=== PATIENT | male | born 1945 | race Caucasian/White ===

== ENCOUNTER 2017-11-03 01:44 | Inpatient (IN) | payer OTHER ==
--- OUTSIDE RECORDS SUMMARY | 2017-11-03 01:46 | XMS REPORT | Clinical Summary ---
:[address] [facility] Address [address] [place] [address] Phone Care Team Providers Name Role Phone Unavailable Primary Care Provider Unavailable Allergies Active Allergy Reactions Severity Noted Date Comments Atorvastatin 04/26/2014 Niacin 04/26/2014 Paroxetine Hcl 04/27/2014 PARADOXICAL RXN Adhesive Tape Rash Low 04/26/2014 USE PAPER TAPE ONLY Current Medications Prescription Sig. Disp. Refills Start Date End Date Status clopidogrel (PLAVIX) 75 Take 75 mg by mouth Active mg tablet daily. aspirin 325 MG tablet Take 325 mg by Active mouth daily. pantoprazole (PROTONIX) Take 40 mg by mouth Active 40 MG tablet daily. pitavastatin (LIVALO) 4 Take 4 mg by mouth Active mg Tab daily. tamsulosin (FLOMAX) 0.4 Take 0.4 mg by Active mg Cp24 24 hr capsule mouth daily. fenofibric acid, choline, Take 135 mg by Active 135 mg capsule mouth daily. dutasteride (AVODART) 0.5 Take 0.5 mg by Active mg capsule mouth daily. allopurinol (ZYLOPRIM) Take 300 mg by Active 300 MG tablet mouth daily. gabapentin (NEURONTIN) Take 300 mg by Active 300 MG capsule mouth 2 (two) times daily. albuterol-ipratropium Inhale 2 puffs by Active (COMBIVENT) 18-103 mouth via inhaler mcg/actuation inhaler every 6 (six) hours as needed for Wheezing. metoprolol (LOPRESSOR) 25 Take 25 mg by mouth Active MG tablet daily . fentaNYL (DURAGESIC) 12 [address] 2 patches Active mcg/hr patch onto the skin every third day. 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 Encounters Date Type Specialty Care Team Description 11/14/2016 Hospital Encounter Radiology Papi Abdominal aortic MD Gabriella aneurysm (AAA) without rupture (HCC) 11/12/2016 Outside Orders Central Scheduling Papi Abdominal aortic MD Gabriella aneurysm (AAA) without rupture ([facility]) (Primary Dx) 11/12/2016 Outside Orders Gabriella Turpin MD after 11/02/2016 Social History Tobacco Use Types Packs/Day Years Used Date Current Every Day Smoker Smokeless Tobacco: Never Used Alcohol Use Drinks/Week oz/Week Comments Yes 28 Shots of liquor 16.8 Sex Assigned at Date Recorded Not on file Last Filed Vital Signs Not on file Plan of Treatment Health Maintenance Due Date Last Done Comments INFLUENZA VACCINE 01/06/2018 Implants Implanted Type Area Traffic Control Flagger Device Expiration Model / Identifier Date Serial / Lot Smart Control Stents-P Left: CORDIS 10/06/2016 [id number] / Implanted: Qty: 1 on 04/27/2014 by Gabriella Turpin MD [employer] / l [id number] Smart Control Stents-P Right: CORDIS 11/06/2014 [id number] / Implanted: Qty: 1 on 04/27/2014 by Gabriella Turpin MD [employer] / l [id number] Express Ld Iliac/Biliary Stents-P Right: [place] 12/07/2016 [id number] / Implanted: Qty: 1 on 04/27/2014 by Gabriella Turpin MD [employer] / l [id number] Lifestent Solo Vascular Stent BARD VASCULAR 12/22/2016 [id number] / Implanted: Qty: 1 on 05/12/2015 / [id number] Ovation Ix Abdominal Stent Graft N/A: Aorta [employer] 06/06/2018 [id number] / Implanted: Qty: 1 on 09/13/2015 by Gabriella Turpin MD / [id number] Ovation Ix Iliac Stent Graft Left: Iliac [employer] 07/31/2018 TV- [id number] / Implanted: Qty: 1 on 09/13/2015 by Gabriella Turpin MD / [id number] Ovation Ix Iliac Stent Graft Right: Iliac [employer] 08/03/2018 TV [id number] / Implanted: Qty: 1 on 09/13/2015 by Gabriella Turpin MD / [id number] abdomen/pelvis without iv contrast (11/14/2016 9:05 AM) Specimen Performing Laboratory Sensorion Narrative Addendum Begins REPORT STATUS:A Addendum I have reviewed the nonvascular findings and concur with Dr. Stewart's report. 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 The multiple renal lesions, some of which are hyperdense, probably represent cysts. It is difficult to characterize them based on noncontrast imaging. There has been no substantial change since April 27, 2015. Signed: Shayla Browne MD Report Verified Date/Time:11/14/2016 13:08:41 Reading Location: [place] [address] Angio Body Reading Room Addendum Ends FINAL REPORT CT abdominal aorta and pelvic arteries, without contrast, 14 November 2016 INDICATION: This is a 71 year old male with aortic aneurysm presents for assessment. This study is performed in an attempt to avoid an invasive procedure. TECHNIQUE: Spiral acquisition without contrast administration using a [employer] multidetector CT scanner per physician request. Multiplanar reformation was performed interactively by the interpreting physician as well as the 3-D specialist. This exam was performed according to our departmental dose-optimisation programme, which includes automated exposure control, adjustment of the mA and/or kV according to patient size and/or use of iterative reconstruction technique. Dose modulation, iterative reconstruction, and/or weight based adjustment of the mA/kV was utilized to reduce the radiation dose to as low as reasonably achievable. FINDINGS: VASCULAR: Calcification is identified in the distal RCA. Since last examination, interval placement of an endostent is identified in the abdominal aorta. The Endo stent commences above the takeoff of the coeliac axis and the iliac limbs terminates in the left and the right external iliac arteries. There appears to be well positioned. Presence or absence of endoleak cannot be commented upon without contrast administration. Note, in prior CT scan in 2016, that already stents identified in the common and external iliac arteries, before the abdominal stent placement. Correlate with operative report. Assessment of the mesenteric, and pelvic arteries are limited. Note, substantial calcification is identified in the left common femoral level, for example at image 260. Quantitative dimensions of the abdominal aorta are as follows: 2.7 cm at the mesenteric segment; 2.7 cm at the renal segment; 3.5 x 3.2 cm at the mid infrarenal level; and 3.9 x 4.0 cm at distal in the renal level, and 2.2 x 2.2 cm at the aortic bifurcation. NON-VASCULAR:- The lung bases are unremarkable. No pleural effusion is identified. Calcification is seen at the diaphragmatic surface in the left and the right. In the noncontrast data set, the liver and spleen appears unremarkable. Mild fatty infiltration of the liver is identified. The liver edge is smooth. Patient is post cholecystectomy. The pancreas appears unremarkable. Tiny focal calcification is seen near the head of the pancreas at image 91, stable when compared to prior examination. The adrenal glands are not enlarged. In the noncontrast data, no obvious acute renal pathology is seen. No hydronephrosis or perirenal fluid collection is identified. Multiple hypodensities are seen in both kidney. The largest one in the right kidney posteriorly at image 117, that measures 5.1 x 4.6 cm in diameter, and the larger one in the posterior aspect of the right kidney, image 84 measures 3.3 x 3.2 cm in diameter, incompletely characterize in this noncontrast data set. In addition, there are also are the subcentimeter hyperdensities present in both kidneys, for example image 74 in the left kidney, and at image 86 in the right kidney that are incompletely characterize. Another hyperdense cyst is seen in the lateral aspect of the right kidney, at image 110, measures 2.3 x 2.7 cm in diameter. Bowel is not well assessed by CT angiography as enteric contrast is not given. No obvious bowel dilation identified. Scattered colonic diverticular disease is seen. No free air or free fluid seen abdomen and pelvis. There is no significant retroperitoneal adenopathy. Small lymph is are seen in both groins, a nonspecific finding. The prostate gland is mildly prominent. The bladder appears unremarkable. Surgical clips are seen in the right groin. No acute bony pathology is seen. Tiny sclerotic focus identified in the right and left femoral likely represent bone islands, stable when compared to prior examination. CONCLUSIONS: 1. Since last examination, an endostent stent is identified in the abdominal aorta that appears to be well positioned, arising above the takeoff of the mesenteric arteries and terminates in the external iliac arteries, bilaterally. Quantitative dimensions as described above. The aortic volume in this current examination was 110 cc, when compared to111 cc in 2016, measure imaging below the left renal artery down to the aortic bifurcation. 2. Other findings as described above; assessment is limited without contrast administration. Mild hepatic steatosis. 3. An addendum will be dictated regarding the non-vascular findings by the Patient Service Associate Radiologists. Signed: Fausto Stewart MD Report Verified Date/Time:11/14/2016 09:27:26 Reading Location: [place] [address] Cardiology MRI Procedure Note Interface, External Ris In - 11/14/2016 1:10 PM CDT Addendum Begins REPORT STATUS:A Addendum I have reviewed the nonvascular findings and concur with Dr. Stewart's report. 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 The multiple renal lesions, some of which are hyperdense, probably represent cysts. It is difficult to characterize them based on noncontrast imaging. There has been no substantial change since April 27, 2015. Signed: Shayla Browne MD Report Verified Date/Time: 11/14/2016 13:08:41 Reading Location: [facility] [address] Angio Body Reading Room Addendum Ends FINAL REPORT CT abdominal aorta and pelvic arteries, without contrast, 14 November 2016 INDICATION: This is a 71 year old male with aortic aneurysm presents for assessment. This study is performed in an attempt to avoid an invasive procedure. TECHNIQUE: Spiral acquisition without contrast administration using a GE multidetector CT scanner per physician request. Multiplanar reformation was performed interactively by the interpreting physician as well as the 3-D specialist. This exam was performed according to our departmental dose-optimisation programme, which includes automated exposure control, adjustment of the mA and/or kV according to patient size and/or use of iterative reconstruction technique. Dose modulation, iterative reconstruction, and/or weight based adjustment of the mA/kV was utilized to reduce the radiation dose to as low as reasonably achievable. FINDINGS: VASCULAR: Calcification is identified in the distal RCA. Since last examination, interval placement of an endostent is identified in the abdominal aorta. The Endo stent commences above the takeoff of the coeliac axis and the iliac limbs terminates in the left and the right external iliac arteries. There appears to be well positioned. Presence or absence of endoleak cannot be commented upon without contrast administration. Note, in prior CT scan in 2016, that already stents identified in the common and external iliac arteries, before the abdominal stent placement. Correlate with operative report. Assessment of the mesenteric, and pelvic arteries are limited. Note, substantial calcification is identified in the left common femoral level, for example at image 260. Quantitative dimensions of the abdominal aorta are as follows: 2.7 cm at the mesenteric segment; 2.7 cm at the renal segment; 3.5 x 3.2 cm at the mid infrarenal level; and 3.9 x 4.0 cm at distal in the renal level, and 2.2 x 2.2 cm at the aortic bifurcation. NON-VASCULAR:- The lung bases are unremarkable. No pleural effusion is identified. Calcification is seen at the diaphragmatic surface in the left and the right. In the noncontrast data set, the liver and spleen appears unremarkable. Mild fatty infiltration of the liver is identified. The liver edge is smooth. Patient is post cholecystectomy. The pancreas appears unremarkable. Tiny focal calcification is seen near the head of the pancreas at image 91, stable when compared to prior examination. The adrenal glands are not enlarged. In the noncontrast data, no obvious acute renal pathology is seen. No hydronephrosis or perirenal fluid collection is identified. Multiple hypodensities are seen in both kidney. The largest one in the right kidney posteriorly at image 117, that measures 5.1 x 4.6 cm in diameter, and the larger one in the posterior aspect of the right kidney, image 84 measures 3.3 x 3.2 cm in diameter, incompletely characterize in this noncontrast data set. In addition, there are also are the subcentimeter hyperdensities present in both kidneys, for example image 74 in the left kidney, and at image 86 in the right kidney that are incompletely characterize. Another hyperdense cyst is seen in the lateral aspect of the right kidney, at image 110, measures 2.3 x 2.7 cm in diameter. Bowel is not well assessed by CT angiography as enteric contrast is not given. No obvious bowel dilation identified. Scattered colonic diverticular disease is seen. No free air or free fluid seen abdomen and pelvis. There is no significant retroperitoneal adenopathy. Small lymph is are seen in both groins, a nonspecific finding. The prostate gland is mildly prominent. The bladder appears unremarkable. Surgical clips are seen in the right groin. No acute bony pathology is seen. Tiny sclerotic focus identified in the right and left femoral likely represent bone islands, stable when compared to prior examination. CONCLUSIONS: 1. Since last examination, an endostent stent is identified in the abdominal aorta that appears to be well positioned, arising above the takeoff of the mesenteric arteries and terminates in the external iliac arteries, bilaterally. Quantitative dimensions as described above. The aortic volume in this current examination was 110 cc, when compared to 111 cc in 2016, measure imaging below the left renal artery down to the aortic bifurcation. 2. Other findings as described above; assessment is limited without contrast administration. Mild hepatic steatosis. 3. An addendum will be dictated regarding the non-vascular findings by the Patient Service Associate Radiologists. Signed: Fausto Stewart MD Report Verified Date/Time: 11/14/2016 09:27:26 Reading Location: [facility] [address] Cardiology MRI after 11/02/2016
[2017-11-03 03:06] LABS: Absolute Lymphocytes (CBC) 1.3 K/uL (0.7-4.9); Absolute Monocytes 0.5 K/uL (0.1-1.3); Absolute Neutrophil 6.6 K/uL (1.8-8.0); Basophils % 0.8 % (0-1.3); Lymphocytes % 15.3 % (15.3-44.8); MCH 31.5 pg (27.0-35.0); MCV 95.4 fL (80-100); MPV 9.6 fL (7.6-11.3); Monocytes % 5.5 % (3.3-12.3); RBC Red Blood Cell Count 3.99 M/uL (4.33-5.43)
[2017-11-03 03:28] LABS: Albumin 3.4 g/dL (3.4-5.0); Bilirubin Direct 0.1 mg/dL (0-0.2); Bilirubin Total 0.4 mg/dL (0.2-1.0); Potassium 4.8 mmol/L (3.5-5.1); Protein, Total 7.6 g/dL (6.4-8.2)
[2017-11-03] MEDS ORDERED: NA CHLORIDE 0.9% 1,000 ML ONE (03:28)
[2017-11-03] MEDS ORDERED: ACETAMINOPHEN 500 MG TAB PO PRN (06:13)
[2017-11-03] MEDS ORDERED: MORPHINE 4 MG/ML SYR IV PRN (06:13)
--- NOTE | 2017-11-03 06:24 | EDPHYS ---
Physician Documentation [facility] Name: Enrrique Vaughn Age: 72 yrs Sex: Male : 1945 Arrival Date: 11/03/2017 Time: 01:46 Bed 24 Private MD: Julio Stratton V ED Physician Darren Beckford HPI: 11/03 02:57 This 72 yrs old Male presents to ER via Ambulatory with complaints of Urinary sukhwinder Retention, Diarrhea. 02:57 The patient presents to the emergency department with nausea, vomiting, diarrhea, that sukhwinder is intermittent. Onset: The symptoms/episode began/occurred 3 day(s) ago. Possible causes: unknown. The symptoms are aggravated by nothing. The symptoms are alleviated by nothing. Associated signs and symptoms: The patient has no apparent associated signs or symptoms. Severity of symptoms: At their worst the symptoms were mild moderate in the emergency department the symptoms are unchanged have resolved. The patient has not experienced similar symptoms in the past. Historical: - Allergies: 02:05 Paxil; aa1 02:05 Niaspan; aa1 02:05 Tape; aa1 02:05 Lipitor; aa1 - Home Meds: 02:05 Vitamin C 1,000 mg Oral tab daily [Active]; allopurinol 300 mg Oral tab 1 tab once aa1 daily [Active]; Combivent 18-103 mcg/actuation Inhl aero as needed [Active]; Protonix 40 mg Oral TbEC 1 tab once daily [Active]; Cymbalta 60 mg oral cpDR 1 cap once daily [Active]; metoprolol tartrate 100 mg Oral tab 1 tab once daily [Active]; Plavix 75 mg Oral tab 1 tab once daily [Active]; aspirin 325 mg Oral tab 1 tab once daily [Active]; Crestor 20 mg oral tab 1 tab once daily [Active]; Trilipix 135 mg oral cpDR 1 cap once daily [Active]; Lyrica Oral 1 cap 2 times per day [Active]; Flomax 0.4 mg Oral cp24 1 cap once daily [Active]; Avodart 0.5 mg oral cap 1 cap once daily [Active]; - PMHx: 02:05 prostate cancer; COPD; Hypertension; aa1 - PSHx: 02:05 Heart stents; aa1 - Immunization history:: Flu vaccine is not up to date. - Social history:: Smoking status: Patient uses tobacco products, smokes one pack cigarettes per day. - Ebola Screening: : Patient denies exposure to infectious person Patient denies travel to an Ebola-affected area in the 21 days before illness onset. - Family history:: not pertinent. ROS: 02:57 Constitutional: Negative for fever, chills, and weight loss, Eyes: Negative for injury, sukhwinder pain, redness, and discharge, ENT: Negative for injury, pain, and discharge, Neck: Negative for injury, pain, and swelling, Cardiovascular: Negative for chest pain, palpitations, and edema, Respiratory: Negative for shortness of breath, cough, wheezing, and pleuritic chest pain, Back: Negative for injury and pain, MS/Extremity: Negative for injury and deformity, Skin: Negative for injury, rash, and discoloration, Neuro: Negative for headache, weakness, numbness, tingling, and seizure, Psych: Negative for depression, anxiety, suicide ideation, homicidal ideation, and hallucinations, Allergy/Immunology: Negative for hives, rash, and allergies, Endocrine: Negative for neck swelling, polydipsia, polyuria, polyphagia, and marked weight changes, Hematologic/Lymphatic: Negative for swollen nodes, abnormal bleeding, and unusual bruising. 02:57 : Positive for urinary symptoms, urinary frequency, small amounts, burning with urination. Exam: 02:57 Constitutional: This is a well developed, well nourished patient who is awake, alert, sukhwinder and in no acute distress. Head/Face: Normocephalic, atraumatic. Eyes: Pupils equal round and reactive to light, extra-ocular motions intact. Lids and lashes normal. Conjunctiva and sclera are non-icteric and not injected. Cornea within normal limits. Periorbital areas with no swelling, redness, or edema. ENT: Nares patent. No nasal discharge, no septal abnormalities noted. Tympanic membranes are normal and external auditory canals are clear. Oropharynx with no redness, swelling, or masses, exudates, or evidence of obstruction, uvula midline. Mucous membranes moist. Neck: Trachea midline, no thyromegaly or masses palpated, and no cervical lymphadenopathy. Supple, full range of motion without nuchal rigidity, or vertebral point tenderness. No Meningismus. Chest/axilla: Normal chest wall appearance and motion. Nontender with no deformity. No lesions are appreciated. Cardiovascular: Regular rate and rhythm with a normal S1 and S2. No gallops, murmurs, or rubs. Normal PMI, no JVD. No pulse deficits. Respiratory: Lungs have equal breath sounds bilaterally, clear to auscultation and percussion. No rales, rhonchi or wheezes noted. No increased work of breathing, no retractions or nasal flaring. Back: No spinal tenderness. No costovertebral tenderness. Full range of motion. Male : Normal genitalia with no discharge or lesions. Skin: Warm, dry with normal turgor. Normal color with no rashes, no lesions, and no evidence of cellulitis. MS/ Extremity: Pulses equal, no cyanosis. Neurovascular intact. Full, normal range of motion. Neuro: Awake and alert, GCS 15, oriented to person, place, time, and situation. Cranial nerves II-XII grossly intact. Motor strength 5/5 in all extremities. Sensory grossly intact. Cerebellar exam normal. Normal gait. Psych: Awake, alert, with orientation to person, place and time. Behavior, mood, and affect are within normal limits. 02:57 Abdomen/GI: Inspection: distension, Bowel sounds: hyperactive, Palpation: mild abdominal tenderness, in the suprapubic area, right lower quadrant and left lower quadrant. Vital Signs: 01:59 BP 123 / 70; Pulse 80; Resp 24; Temp 98.1(O); Pulse Ox 98% on R/A; Weight 90.72 kg; aa1 Height 5 ft. 6 in. (167.64 cm); Pain 3/10; 03:00 BP 153 / 79; Pulse 69; Resp 15; Pulse Ox 93% on 2 lpm NC; lp1 03:30 BP 158 / 76; Pulse 68; Resp 12; Pulse Ox 94% on 2 lpm NC; lp1 04:30 BP 158 / 67; Pulse 68; Resp 17; Pulse Ox 96% on 2 lpm NC; lp1 05:01 BP 167 / 77; Pulse 68; Resp 20; Pulse Ox 94% on 2 lpm NC; tl2 06:21 BP 171 / 87; Pulse 68; Resp 20; Pulse Ox 95% on 2 lpm NC; tl2 07:00 BP 135 / 78; Pulse 72; Resp 19; Pulse Ox 95% on R/A; lp1 01:59 Body Mass Index 32.28 (90.72 kg, 167.64 cm) aa1 MDM: 03:00 Data reviewed: vital signs, nurses notes, lab test result(s), cardiac enzymes, CPK, CK sukhwinder MB, troponin i, CBC, electrolytes. 03:53 Patient medically screened. [facility] 11/03 02:44 Order name: Amylase, Serum; Complete Time: 04:04 [facility] 11/03 02:44 Order name: Basic Metabolic Panel; Complete Time: 04:04 [facility] 11/03 02:44 Order name: CBC with Diff; Complete Time: 04:04 [facility] 11/03 02:44 Order name: Creatinine for Radiology; Complete Time: 04:04 [facility] 11/03 02:44 Order name: Hepatic Function; Complete Time: 04:04 [facility] 11/03 02:44 Order name: Lipase; Complete Time: 04:04 [facility] 11/03 02:44 Order name: Urine Microscopic Only [facility] 11/03 06:17 Order name: Basic Metabolic Panel [facility] 11/03 06:17 Order name: Basic Metabolic Panel [facility] 11/03 06:17 Order name: CBC with Automated Diff [facility] 11/03 06:17 Order name: CBC with Automated Diff [facility] 11/03 06:17 Order name: Lipase [facility] 11/03 06:17 Order name: Lipase [facility] 11/03 06:17 Order name: Liver (Hepatic) Function [facility] 11/03 02:44 Order name: IV Saline Lock; Complete Time: 03:25 [facility] 11/03 02:44 Order name: Labs collected and sent; Complete Time: 03:25 [facility] 11/03 02:56 Order name: Bladder Scanner; Complete Time: 03:25 [facility] 11/03 02:56 Order name: CT Stone Protocol [facility] 11/03 06:06 Order name: NG Tube: to low intermittent suction; Complete Time: 07:19 [facility] 11/03 06:17 Order name: CONS Physician Consult [facility] 11/03 06:17 Order name: NPO [facility] 11/03 06:17 Order name: Liver (Hepatic) Function [facility] 11/03 07:18 Order name: Chest Single View XRAY [facility] 11/03 08:54 Order name: RAD [facility] 11/03 08:55 Order name: RAD [facility] Administered Medications: 03:40 Drug: NS 0.9% 1000 ml Route: IV; Rate: 75 ml/hr; Site: right antecubital; lp1 07:18 Follow up: IV Status: Infusion continued upon admission lp1 06:32 Drug: Cipro 400 mg Volume: 200 ml; Route: IVPB; Infused Over: 60 mins; Site: right lp1 antecubital; 07:18 Follow up: IV Status: Infusion continued upon admission lp1 06:32 Drug: Flagyl 500 mg Volume: 100 ml; Route: IVPB; Rate: 200 ml/hr; Infused Over: 30 lp1 mins; Site: right antecubital; 07:18 Follow up: IV Status: Infusion continued upon admission lp1 Disposition: 11/03/17 06:23 Hospitalization ordered by Julio Stratton for Inpatient Admission. Preliminary diagnosis are Unspecified abdominal pain, Other intestinal obstruction - sbo transion mid ileum. - Bed requested for Telemetry/MedSurg (Inpatient). - Status is Inpatient Admission. ss - Condition is Fair. - Problem is new. - Symptoms have improved. UTI on Admission? No Signatures: Dispatcher [employer] EDMS Darlin Nickerson RN RN Leslye Castro RN RN aa1 Darren Beckford MD MD cha Smirch, Shelby, RN RN Chanelle Samayoa RN RN [facility] Shantell Judge Corrections: (The following items were deleted from the chart) 06:41 06:23 Hospitalization Ordered by Julio Stratton MD for Inpatient Admission. Preliminary kl diagnosis is Unspecified abdominal pain; Other intestinal obstruction - sbo transion mid ileum. Bed requested for Telemetry/MedSurg (Inpatient). Status is Inpatient Admission. Condition is Fair. Problem is new. Symptoms have improved. UTI on Admission? No. sukhwinder 10:59 06:41 11/03/2017 06:23 Hospitalization Ordered by Julio Stratton MD for Inpatient eb Admission. Preliminary diagnosis is Unspecified abdominal pain; Other intestinal obstruction - sbo transion mid ileum. Bed requested for [facility] ER HOLD. Status is Inpatient Admission. Condition is Fair. Problem is new. Symptoms have improved. UTI on Admission? No. brett 12:13 10:59 11/03/2017 06:23 Hospitalization Ordered by Julio Stratton MD for Inpatient ss Admission. Preliminary diagnosis is Unspecified abdominal pain; Other intestinal obstruction - sbo transion mid ileum. Bed requested for Telemetry/MedSurg (Inpatient). Status is Inpatient Admission. Condition is Fair. Problem is new. Symptoms have improved. UTI on Admission? No. eb
--- NOTE | 2017-11-03 06:24 | ER ---
Nurse's Notes [facility] Name: Enrrique Vaughn Age: 72 yrs Sex: Male : 1945 Arrival Date: 11/03/2017 Time: 01:46 Bed 24 Private MD: Julio Stratton V Diagnosis: Unspecified abdominal pain;Other intestinal obstruction-sbo transion mid ileum Presentation: 11/03 01:59 Presenting complaint: Patient states: diarrhea x 3 days and urinary retention since aa1 last night. Reports hx of prostate CA that is not currently being treated. Transition of care: patient was not received from another setting of care. Onset of symptoms was November 01, 2017. Risk Assessment: Do you want to hurt yourself or someone else? Patient reports no desire to harm self or others. Initial Sepsis Screen: Does the patient meet any 2 criteria? No. Patient's initial sepsis screen is negative. Does the patient have a suspected source of infection? No. Patient's initial sepsis screen is negative. Care prior to arrival: None. 01:59 Method Of Arrival: Ambulatory aa1 01:59 Acuity: SAMANTHA 3 aa1 Historical: - Allergies: 02:05 Paxil; aa1 02:05 Niaspan; aa1 02:05 Tape; aa1 02:05 Lipitor; aa1 - Home Meds: 02:05 Vitamin C 1,000 mg Oral tab daily [Active]; allopurinol 300 mg Oral tab 1 tab once aa1 daily [Active]; Combivent 18-103 mcg/actuation Inhl aero as needed [Active]; Protonix 40 mg Oral TbEC 1 tab once daily [Active]; Cymbalta 60 mg oral cpDR 1 cap once daily [Active]; metoprolol tartrate 100 mg Oral tab 1 tab once daily [Active]; Plavix 75 mg Oral tab 1 tab once daily [Active]; aspirin 325 mg Oral tab 1 tab once daily [Active]; Crestor 20 mg oral tab 1 tab once daily [Active]; Trilipix 135 mg oral cpDR 1 cap once daily [Active]; Lyrica Oral 1 cap 2 times per day [Active]; Flomax 0.4 mg Oral cp24 1 cap once daily [Active]; Avodart 0.5 mg oral cap 1 cap once daily [Active]; - PMHx: 02:05 prostate cancer; COPD; Hypertension; aa1 - PSHx: 02:05 Heart stents; aa1 - Immunization history:: Flu vaccine is not up to date. - Social history:: Smoking status: Patient uses tobacco products, smokes one pack cigarettes per day. - Ebola Screening: : Patient denies exposure to infectious person Patient denies travel to an Ebola-affected area in the 21 days before illness onset. - Family history:: not pertinent. Screenin:15 Abuse screen: Denies threats or abuse. Denies injuries from another. Nutritional lp1 screening: No deficits noted. Tuberculosis screening: No symptoms or risk factors identified. Fall Risk Total Oates Fall Scale indicates High Risk Score (45 or more points). Fall prevention measures have been instituted. Side Rails Up X 2 As available patient and family educated on Fall Prevention Program and Strategies. Assessment: 02:12 General: Appears uncomfortable, Behavior is appropriate for age. Pain: Complains of lp1 pain in abdomen. Neuro: Level of Consciousness is awake, alert, obeys commands, Oriented to person, place, time, situation. Cardiovascular: Patient's skin is warm and dry. Respiratory: Reports cough that is productive, Respiratory effort is even, unlabored, Sputum is thick, yellow Breath sounds with wheezes bilaterally. GI: Abdomen is distended, Bowel sounds diminished in left lower quadrant Reports diarrhea, nausea, vomiting. : Reports inability to void. EENT: No signs and/or symptoms were reported regarding the EENT system. Derm: Skin is intact, Skin is dry, Skin is normal. Musculoskeletal: Circulation, motion, and sensation intact. 02:44 Reassessment: Bladder scan performed at this time, 131ml scanned. lp1 03:00 Reassessment: Patient at 89% on RA when sleeping, NC applied at 2L. lp1 03:33 Reassessment: Patient returned from CT at this time. lp1 04:30 Reassessment: Patient resting, eyes closed, respirations unlabored; at bedside. lp1 05:30 Reassessment: Patient appears in no apparent distress at this time. No changes from lp1 previously documented assessment. 06:30 Reassessment: Patient refusing NG tube insertion, Provider aware. lp1 06:45 Reassessment: Patient is alert, oriented x 3, equal unlabored respirations, skin lp1 warm/dry/pink. Patient agreed to NG tube insertion at this time. Vital Signs: 01:59 BP 123 / 70; Pulse 80; Resp 24; Temp 98.1(O); Pulse Ox 98% on R/A; Weight 90.72 kg; aa1 Height 5 ft. 6 in. (167.64 cm); Pain 3/10; 03:00 BP 153 / 79; Pulse 69; Resp 15; Pulse Ox 93% on 2 lpm NC; lp1 03:30 BP 158 / 76; Pulse 68; Resp 12; Pulse Ox 94% on 2 lpm NC; lp1 04:30 BP 158 / 67; Pulse 68; Resp 17; Pulse Ox 96% on 2 lpm NC; lp1 05:01 BP 167 / 77; Pulse 68; Resp 20; Pulse Ox 94% on 2 lpm NC; tl2 06:21 BP 171 / 87; Pulse 68; Resp 20; Pulse Ox 95% on 2 lpm NC; tl2 07:00 BP 135 / 78; Pulse 72; Resp 19; Pulse Ox 95% on R/A; lp1 01:59 Body Mass Index 32.28 (90.72 kg, 167.64 cm) aa1 ED Course: 01:46 Patient arrived in ED. es 01:46 Julio Stratton MD is Private Physician. es 01:59 Arm band placed on right wrist. Patient placed in an exam room, on a stretcher. aa1 02:00 Triage completed. aa1 02:12 Chanelle Samayoa, RN is Primary Nurse. lp1 02:15 Patient has correct armband on for positive identification. Placed in gown. Bed in low lp1 position. Call light in reach. Side rails up X2. bus driver/monitor on. Pulse ox on. NIBP on. 02:15 Missed attempt(s): 20 gauge in right forearm. Inserted saline lock: 20 gauge in right lp1 antecubital area, using aseptic technique. Blood collected. 02:43 Abdominal pain workup initiated per nursing protocol. lp1 02:53 Darren Beckford MD is Attending Physician. sukhwinder 03:[address] via stretcher. kw1 03:35 CT completed. Patient tolerated procedure well. Patient moved back from CT. kw1 03:38 CT Stone Protocol In Process Unspecified. EDMS 06:08 Julio Stratton MD is Hospitalizing Provider. sukhwinder 06:35 No provider procedures requiring assistance completed. Patient admitted, IV remains in lp1 place. 07:00 NGT: inserted 14 Fr. via right nare. verified placement of air over stomach, verified lp1 return of gastric contents, to intermittent suction. Returned gastric contents. 08:21 X-ray completed. Portable x-ray completed in exam room. Patient tolerated procedure la2 well. Administered Medications: 03:40 Drug: NS 0.9% 1000 ml Route: IV; Rate: 75 ml/hr; Site: right antecubital; lp1 07:18 Follow up: IV Status: Infusion continued upon admission lp1 06:32 Drug: Cipro 400 mg Volume: 200 ml; Route: IVPB; Infused Over: 60 mins; Site: right lp1 antecubital; 07:18 Follow up: IV Status: Infusion continued upon admission lp1 06:32 Drug: Flagyl 500 mg Volume: 100 ml; Route: IVPB; Rate: 200 ml/hr; Infused Over: 30 lp1 mins; Site: right antecubital; 07:18 Follow up: IV Status: Infusion continued upon admission lp1 Outcome: 06:23 Decision to Hospitalize by Provider. sukhwinder 06:35 Condition: stable lp1 06:35 Instructed on the need for admit. 07:24 Admitted to ER Hold. Please see [facility] for further documentation. lp1 12:13 Patient left the ED. Signatures: Dispatcher [employer] Leslye Toth RN RN aa1 Darren Beckford MD MD cha Salyer, Edna es Smirch, Shelby, RN RN Chanelle Samayoa RN RN lp1 Barbara Mansfield RN RN 2 Yudith Howell al2 Darlin Jules kw1 Corrections: (The following items were deleted from the chart) 02:15 02:12 Respiratory: Respiratory effort is even, unlabored, Breath sounds are clear lp1 bilaterally. lp1
[2017-11-03] MEDS ORDERED: CIPROFLOXACIN 400mg IV 400 MG/200 ML BAG IV ONE (06:27)
[2017-11-03] MEDS ORDERED: LIDOCAINE VISCOUS 2% SOLN 15 ML UDC ONE (06:47)
[2017-11-03] MEDS ORDERED: NA CHLORIDE 0.9% 1,000 ML IV SCH (07:00)
[2017-11-03] MEDS ORDERED: Levofloxacin500mg IV 500 MG/100 ML BAG IV ONE ×2 (08:00→09:41)
--- NOTE | 2017-11-03 08:53 | RAD REPORT ---
EXAM DESCRIPTION: RAD - Chest Single View - 11/03/2017 8:21 am CLINICAL HISTORY: Chest pain, shortness of breath COMPARISON: January 2016 TECHNIQUE: AP portable chest image was obtained 0814 hours . FINDINGS: No peripheral mass or consolidation. Scarring changes are present. No failure or volume ov erload. Heart and vasculature are normal. No measurable pleural effusion and no pneumothorax. No laura s bony abnormality seen. No acute aortic findings suspected. IMPRESSION: No significant cardiopulmonary finding. NG tube findings are detailed in separate abdomen report.
--- NOTE | 2017-11-03 08:54 | RAD REPORT ---
EXAM DESCRIPTION: RAD - Abdomen W Erect - 11/03/2017 8:21 am CLINICAL HISTORY: Abdominal pain, NG tube placement COMPARISON: None. TECHNIQUE: Supine and upright views of the abdomen were obtained. FINDINGS: NG tube has been placed. Tube is curled as it traverses the gastroesophageal junction. The tip of the tube is directed superiorly and positioned in the distal esophagus. Side port of the tubi ng in the distal esophagus. Air filled but nondilated stomach seen. Multiple dilated small bowel loop s are present. IMPRESSION: NG tube is curled in the distal esophagus and GE junction. Tip is superiorly directed i n the distal esophagus with the side port near the GE junction.
[2017-11-03] MEDS: FAMOTIDINE 20 MG/2 ML VIAL IV SCH ×2 (09:00→21:54)
--- NOTE | 2017-11-03 09:04 | RAD REPORT ---
EXAM DESCRIPTION: CT - Stone Protocol - 11/03/2017 7:09 am CLINICAL HISTORY: Abdominal pain, diarrhea, urinary retention, history of prostate cancer A preliminary written report was provided at the time of the study, and the report was reviewed prio r to final dictation. COMPARISON: CT study June 2012 TECHNIQUE: Axial 5 millimeter thick images were obtained from the lower chest through the pelvis. No oral or IV contrast administered. All CT scans are performed using dose optimization technique as appropriate and may include automated exposure control or mA/KV adjustment according to patient size. FINDINGS: Calcified pleural plaquing without mass. No acute pleural or parenchymal process at either lung base. No pericardial effusion. No hydronephrosis or obstructing ureteral calculi. Numerous bilateral variably sized renal cysts are present. Several round hyperdense masses are most likely high protein content cysts. No suspicious re nal masses. Isodense masses and pyelonephritis are not excluded on a stone protocol CT scan. No urina ry bladder abnormality. No prostate enlargement or invasion of adjacent structures. Imaged portions of the liver, spleen and pancreas show no suspicious findings on non-contrast imaging . Cholecystectomy clips are present. No biliary tree dilatation. No acute adrenal finding. Air, food and fluid filled the stomach. Stomach is distended but not clearly dilated. No gastric outl et obstruction. No gastric wall thickening or mass. No duodenum abnormality. Dilated small bowel pattern to the mid ileum level. There is an abrupt transition not optimally visua lized. No clearly defined obstructing intrinsic or extrinsic mass. Internal hernia or adhesions would be possible. Distal small bowel is decompressed. Colon is decompressed. An acute colon process is no t identified. No free air or pneumatosis. No abnormal free fluid. No discrete mass and no bulky lymphadenopathy or omental thickening. Portions of the anterior abdomin al wall were excluded from view. Hernia or bowel abnormality in this region cannot be assessed. Small bowel obstruction related to a hernia is not suspected. Bony degenerative changes are present not clearly different from the prior study. No pathologic bone process. Findings are not clearly different. Patient has extensive vascular disease. Extensive vascular calcifications are present. Aortoiliac end ovascular stenting is in place. In the absence of contrast, assessment is limited. No finding to with raise concern for an acute vascular process. IMPRESSION: Small bowel obstruction pattern with transition in the mid ileum. A discrete obstructing mass is not seen. Adhesion or internal hernia would be favored. No free air or surgically emergent finding. Anterior abdominal wall is obscured from view on the initial assessment. The hernia cannot be assesse d. An anterior abdominal wall etiology for the small bowel obstruction is not suspected. Patient has numerous chronic findings detailed in the body of the report. These are not clearly diffe rent from the comparison 4 are not likely of acute significance. Assessment is limited in the absence of contrast. Isodense masses and pyelonephritis are not excluded on stone protocol technique.
--- NOTE | 2017-11-03 09:30 | EKG ---
Test Date: 2017-11-03 Test Time: 02:02:13 Quality Coordinator: RYAN MEASUREMENT RESULTS: Intervals: Rate: 77 NC: 160 QRSD: 84 QT: 382 QTc: 432 [place]: P: 30 NC: 160 QRS: 60 T: 81 INTERPRETIVE STATEMENTS: Normal sinus rhythm Normal ECG Compared to ECG 11/30/2013 13:49:23 No significant changes Electronically Signed On 11-03-17 09:29:29 CDT by Hans Johnson
[2017-11-03] MEDS ORDERED: FAMOTIDINE 20 MG/2 ML VIAL IV ONE (09:41)
[2017-11-03] MEDS ORDERED: MORPHINE 4 MG/ML SYR ONE (09:44)
[2017-11-03] MEDS ORDERED: ONDANSETRON 4 MG/2 ML VIAL ONE (09:44)
--- NOTE | 2017-11-03 12:16 | P.HP ---
Certification for Inpatient Patient admitted to: Inpatient With expected LOS: >2 Midnights Practitioner: I am a practitioner with admitting privileges, knowledge of patient current condition, hospital course, and medical plan of care. Services: Services provided to patient in accordance with Admission requirements found in Title 42 Section 412.3 of the Code of Federal Regulations Patient History Date of Service: 11/03/17 Reason for admission: ABDOMEN PAIN, DISTENSION, VOMITING History of Present Illness: MR. ONEILL HAS SEVERE COPD, CAD, PVD, HE CONTINUES TO BE A HEAVY SMOKER AND DOES NOT WANT TO QUIT- COMES WITH ABDOMEN PAIN, DISTENSION, NAUSEA AND VOMITING FOR A DAY. HE HAS SMALL BOWEL OBSTRUCTION. HE NOW HAS NGT WITH SUCTION AND WE ARE CONSULTING DR. WEBB. Allergies niacin [From Niaspan Extended-Release] Allergy (Mild, Verified 11/30/13 13:58) Nausea/Vomiting paroxetine HCl [From Paxil] Allergy (Mild, Verified 09/02/11 23:48) Itching/Hives/Rash atorvastatin calcium [From Lipitor] Adverse Reaction (Intermediate, Verified 13:57) Muscle weakness paper tape Adverse Reaction (Uncoded 06/30/12 15:32) Rash Home Medications: Dutasteride [Avodart*] 0.5 mg PO DAILY 09/12/11 Fenofibric Acid (Choline) [Trilipix] 135 mg PO DAILY 09/12/11 Ipratrop/Albuterol Inhaler [Combivent*] 2 puff IH TID PRN 09/12/11 Clopidogrel Bisulfate [Plavix*] 75 mg PO DAILY 06/30/12 Tamsulosin [Flomax*] 0.4 mg PO DAILY 06/30/12 Allopurinol 300 mg PO DAILY 11/30/13 Pantoprazole Sodium [Protonix] 1 tab PO DAILY 12/02/13 Ascorbic Acid [Vitamin C] 1,000 mg PO DAILY 11/03/17 Aspirin 325 mg PO DAILY 11/03/17 Metoprolol Succinate [Toprol Xl] 100 mg PO DAILY 11/03/17 Rosuvastatin [Crestor] 20 mg PO BEDTIME 11/03/17 - Past Medical/Surgical History Diabetic: No -: HTN -: Gout -: Ley's Cyst -: Prostate CA -: Kidney dx -: Cardiac cath x2 w/stent placement -: R illiac & coronary stents - Social History Alcohol use: Yes CD- Drugs: No Caffeine use: No Review of Systems 10-point ROS is otherwise unremarkable General: Weakness, Malaise Gastrointestinal: Abdominal Pain, Distention Physical Examination - Physical Exam General: Alert, Mild distress HEENT: Atraumatic, PERRLA, Mucous membr. moist/pink, EOMI, Sclerae nonicteric Neck: Supple, 2+ carotid pulse no bruit, No LAD, Without JVD or thyroid abnormality Respiratory: Clear to auscultation bilaterally, Normal air movement Cardiovascular: Regular rate/rhythm, Normal S1 S2 Gastrointestinal: Hypoactive, Non-distended (NOW WITH NGT SUCTION.) Musculoskeletal: No tenderness Integumentary: No rashes Neurological: Normal gait, Normal speech, Normal strength at 5/5 x4 extr, Normal tone, Normal affect Lymphatics: No axilla or inguinal lymphadenopathy - Studies Laboratory Data (last 24 hrs) 11/03/17 02:10: Creatinine 2.60 H 11/03/17 02:10: WBC 8.4, Hgb 12.6 L, Hct 38.0 L, Plt Count 248 11/03/17 02:10: Sodium 143, Potassium 4.8, BUN 39 H, Creatinine 2.60 H, Glucose 113 H, Total Bilirubin 0.4, AST 14 L, ALT 15, Alkaline Phosphatase 66, Amylase 57, Lipase 146 Assessment and Plan - Problems (Diagnosis) (1) Small bowel obstruction Current Visit: Yes Status: Acute Plan: NGT WITH LIS POSS FROM ADHESIONS. HOPEFULLY WILL RECOVER WITHOUT SURGERY PROCESS EXPLAINED TO PATIENT AND . (2) COPD (chronic obstructive pulmonary disease) Current Visit: Yes Status: Chronic Plan: NEBS STARTED NO NEED OF STEROIDS TODAY. SMOKER AND HAS POOR PROGNOSIS. Qualifiers: COPD type: emphysema Emphysema type: unspecified Qualified Code(s): J43.9 - Emphysema, unspecified (3) MCKINLEY (obstructive sleep apnea) Current Visit: Yes Status: Chronic Plan: NOT ABLE TO USE CPAP FOR NOW USES AT HOME. (4) CAD (coronary artery disease) Current Visit: Yes Status: Chronic Plan: NO ACUTE SYMPTOMS FOR NOW WILL RESUME ASPIRIN AND OTHER MEDS WHEN NGT COMES OUT. (5) CKD (chronic kidney disease) stage 3, GFR 30-59 ml/min Current Visit: Yes Status: Chronic Plan: STABLE DOSE ADJUSTED OF MEDS. FU HAS WITH EYE PHYSICIAN. - Advance Directives Does patient have a Living Will: No Does patient have a Durable POA for Healthcare: No
[2017-11-03] MEDS: CEFTRIAXONE/SWI 1gm 1 GM/10 ML SYR IVP SCH (13:00)
[2017-11-03] MEDS: NA CHLORIDE 0.9% 1,000 ML IV SCH (13:00)
[2017-11-03] MEDS: IPRATROPIUM BROM 0.5MG/2.5ML NEB SCH ×2 (14:11→20:00)
[2017-11-03] MEDS: ALBUTEROL 2.5 MG/3 ML NEB SOL NEB SCH ×2 (14:11→20:00)
[2017-11-03] MEDS: METRONIDAZOLE 500mg IVPB 500 MG/100 ML BAG IV SCH ×3 (14:41→23:36)
[2017-11-03 16:20] VITALS: BMI 32.3
[2017-11-03 18:35] LABS: Urine Bacteria NONE SEEN /HPF (NONE SEEN); Urine Culture Reflex Order NOT NEEDED; Urine RBC <5 /HPF (NONE SEEN)
[2017-11-03] MEDS: ONDANSETRON 4 MG/2 ML VIAL IV PRN (21:56)
[2017-11-03] MEDS ORDERED: SODIUM CHLORIDE 0.9% 10ML INJ IV PRN (22:00)
[2017-11-03] MEDS: METOPROLOL TARTRATE 5 MG/5 ML INJ IV SCH (23:33)
[2017-11-04] MEDS: IPRATROPIUM BROM 0.5MG/2.5ML NEB SCH ×4 (02:48→20:41)
[2017-11-04] MEDS: ALBUTEROL 2.5 MG/3 ML NEB SOL NEB SCH ×4 (02:48→20:41)
--- NOTE | 2017-11-04 03:49 | CON ---
Date of Consultation: 11/03/2017 Reason For Service: Small bowel obstruction. History: This is the case of a 72-year-old patient who comes to us with urinary retention. He could not urinate for the last 3 days, he claims, and came to the ER, and during workup, patient also foun d to have distended abdomen with small bowel distention, diagnosed with small bowel obstruction and a surgical consult was obtained. The patient denies any dysuria, hematuria, hematochezia, or melena. Denies any recent travelling out of the country. Denies any family member sick at home. The patien t has no previous surgeries other than the gall bladder and that was unremarkable. The patient appar ently has history of prostate cancer and has been untreated. Review of Systems: Eleven points otherwise unremarkable. Past Medical History: Prostate cancer, morbid obesity, hypertension. Past Surgical History: Cholecystectomy. Social History: He does not smoke, does not drink alcohol. Family History: Noncontributory. Physical Examination: General: The patient is awake and alert. HEENT: Pupils are equal and reactive, anicteric. Neck: Supple. Chest: Clear. Abdomen: Softly distended. No guarding or rebound, but distended. No masses palpated. Rectal: Deferred. Extremities: Good capillary refill. Dorsalis pedis pulses present. Laboratory Data: Blood work reviewed. Imaging: CAT scan of abdomen and pelvis from the surgical standpoint shows a distended part of the s mall bowel, cannot rule out obstruction. Assessment: This is a 72-year-old patient with multiple medical problems. Dr. Stratton is taking care of the rest of the problems. In my case, due to possibility of small bowel obstruction, the patient will be on bowel rest, ambulation, NG tube, IV hydration. We explained to him if this bowel obstruct ion does not resolve, then we may have to do laparotomy, possible resection, possible ostomy with lisset efits, alternatives, and risks including, but not limited to, infection, bleeding, damage to adjacent structures, anesthesia complication, myocardial infarction, and even . He also understands the importance also of weight loss, following up with his urologist to address that issue of the prostat e cancer and that eventually may become metastatic and start to give some comorbidities that may even include bowel obstruction. He understood that. PADMINI/MODL Voice ID: [id number] Report ID: [id number]
[2017-11-04] MEDS: METOPROLOL TARTRATE 5 MG/5 ML INJ IV SCH ×4 (04:00→21:42)
[2017-11-04 04:59] LABS: Absolute Lymphocytes (CBC) 0.7 K/uL (0.7-4.9); Absolute Monocytes 0.4 K/uL (0.1-1.3); Absolute Neutrophil 5.8 K/uL (1.8-8.0); Basophils % 0.7 % (0-1.3); Eosinophils % 0.2 % (0-4.4); Lymphocytes % 10.5 % (15.3-44.8); MCH 31.7 pg (27.0-35.0); MCV 94.9 fL (80-100); MPV 9.2 fL (7.6-11.3); Monocytes % 5.7 % (3.3-12.3); RBC Red Blood Cell Count 3.58 M/uL (4.33-5.43)
[2017-11-04 05:16] LABS: Albumin 2.8 g/dL (3.4-5.0); Bilirubin Direct 0.2 mg/dL (0-0.2); Bilirubin Total 0.4 mg/dL (0.2-1.0); Potassium 4.6 mmol/L (3.5-5.1); Protein, Total 6.4 g/dL (6.4-8.2)
[2017-11-04] MEDS: NA CHLORIDE 0.9% 1,000 ML IV SCH ×2 (05:20→15:40)
[2017-11-04] MEDS: METRONIDAZOLE 500mg IVPB 500 MG/100 ML BAG IV SCH ×3 (05:20→17:06)
[2017-11-04] MEDS ORDERED: Levofloxacin 250mg IV 250 MG/50 ML BAG IV SCH (08:00)
[2017-11-04] MEDS: CLOPIDOGREL 75 MG TABLET PO SCH (09:00)
[2017-11-04] MEDS: PANTOPRAZOLE 40 MG INJ IVP SCH (09:03)
[2017-11-04] MEDS: CEFTRIAXONE/SWI 1gm 1 GM/10 ML SYR IVP SCH (09:03)
[2017-11-04] MEDS: FAMOTIDINE 20 MG/2 ML VIAL IV SCH ×2 (09:03→21:52)
[2017-11-04 10:38] LABS: Urine Appearance CLEAR; Urine Bilirubin NEGATIVE (NEG); Urine Blood NEGATIVE (NEG); Urine Color YELLOW; Urine Glucose NEGATIVE (NEG); Urine Protein TRACE (NEG); Urine Specific Gravity 1.015 (1.005-1.030); Urine Urobilinogen 0.2 mg/dL (0.2-1.0)
[2017-11-04 11:08] LABS: Urine Microscopic Reflex ORDER UMIC
[2017-11-04 11:11] LABS: Urine Bacteria <20 /HPF (NONE SEEN); Urine RBC <5 /HPF (NONE SEEN)
[2017-11-04 11:12] LABS: Urine Culture Reflex Order NOT NEEDED
--- NOTE | 2017-11-04 12:16 | P.PN ---
Subjective Date of Service: 11/04/17 Chief Complaint: ABDOMEN PAIN, DISTENSION, VOMITING Subjective: No new changes (NOT HAVING BM YET. PASSES SOME GAS AND LIQUID.) Review of Systems 10-point ROS is otherwise unremarkable General: Weakness, Malaise Physical Examination - Vital Signs Temperature: 97.3 F Blood Pressure: 92/52 Pulse: 83 Respirations: 16 Pulse Ox (%): 88 - Physical Exam General: Alert, Mild distress, Obese HEENT: Atraumatic, PERRLA, EOMI Neck: Supple, JVD not distended Respiratory: Diminished Cardiovascular: Regular rate/rhythm, Normal S1 S2 Gastrointestinal: Hypoactive (NGT WITH LIS. ) Musculoskeletal: No tenderness Integumentary: No rashes Neurological: Normal speech, Normal tone, Normal affect Lymphatics: No axilla or inguinal lymphadenopathy - Studies Medications List Reviewed: Yes Assessment And Plan - Current Problems (Diagnosis) (1) Small bowel obstruction Onset Date: 11/04/17 Current Visit: Yes Status: Acute Plan: NGT WITH LIS POSS FROM ADHESIONS. HOPEFULLY WILL RECOVER WITHOUT SURGERY PROCESS EXPLAINED TO PATIENT AND . NGT WITH LIS CONTINUE NO BM YET DAILY FU DR. HAY TO FU. (2) COPD (chronic obstructive pulmonary disease) Onset Date: 11/04/17 Current Visit: Yes Status: Chronic Plan: NEBS STARTED NO NEED OF STEROIDS TODAY. SMOKER AND HAS POOR PROGNOSIS. Qualifiers: COPD type: emphysema Emphysema type: unspecified Qualified Code(s): J43.9 - Emphysema, unspecified (3) MCKINLEY (obstructive sleep apnea) Onset Date: 11/04/17 Current Visit: Yes Status: Chronic Plan: NOT ABLE TO USE CPAP FOR NOW USES AT HOME. (4) CAD (coronary artery disease) Onset Date: 11/04/17 Current Visit: Yes Status: Chronic Plan: NO ACUTE SYMPTOMS FOR NOW WILL RESUME ASPIRIN AND OTHER MEDS WHEN NGT COMES OUT. (5) CKD (chronic kidney disease) stage 3, GFR 30-59 ml/min Onset Date: 11/04/17 Current Visit: Yes Status: Chronic Plan: STABLE DOSE ADJUSTED OF MEDS. FU HAS WITH LAUNDRY CLERK.
--- NOTE | 2017-11-04 13:59 | RAD REPORT ---
EXAM DESCRIPTION: RAD - Abdomen W Erect - 11/04/2017 1:41 pm CLINICAL HISTORY: sbo Pain COMPARISON: Abdomen W Erect dated 11/03/2017; Stone Protocol dated 11/03/2017 FINDINGS: There has been slight improvement in the small bowel obstruction pattern since comparative study, although multiple mildly prominent small bowel loops persists in the left abdomen. Tip of the enteric tube is in the stomach. No pneumoperitoneum seen. Prominent stenting in the vasculature seen . IMPRESSION: Fractional improvement in SBO pattern since comparative study.
[2017-11-04] MEDS: ENOXAPARIN 30 MG/0.3 ML SQ SCH (16:49)
[2017-11-04] MEDS ORDERED: ENOXAPARIN 40 MG/0.4 ML SQ SCH (17:00)
--- NOTE | 2017-11-04 20:23 | PN ---
Date of Progress Note: 11/04/2017 Diagnoses: Small bowel obstruction, urinary retention. Subjective: The patient feels better. He is passing gas. Ambulating. Review of Systems: Gastrointestinal: As above. Respiratory: Denies any shortness of breath. Constitutional: Denies any fever. Physical Examination: General: The patient is awake, alert, no distress. Abdomen: Soft and depressible. Softly distended. No guarding or rebound. Extremities: Good capil trever refill. Diagnostic Studies: Abdominal x-ray done today shows fractional improvement of the small bowel patte rn. Blood work shows WBC count of 7. Assessment: Small bowel obstruction. Plan: We going to clamp the NG tube. Clinically, he feels better and the patient is passing gas. W e are going to try just clear liquid diet just to see if he tolerates that or not since he feels a lo t better and the abdomen is benign. Ambulation. We will follow the patient with you. GRACE Voice ID: [id number] Report ID: [id number]
[2017-11-05] MEDS: NA CHLORIDE 0.9% 1,000 ML IV SCH ×3 (01:11→22:28)
[2017-11-05] MEDS: METRONIDAZOLE 500mg IVPB 500 MG/100 ML BAG IV SCH ×4 (01:12→17:29)
[2017-11-05] MEDS: ALBUTEROL 2.5 MG/3 ML NEB SOL NEB SCH ×4 (02:00→19:35)
[2017-11-05] MEDS: IPRATROPIUM BROM 0.5MG/2.5ML NEB SCH ×4 (02:00→19:35)
[2017-11-05] MEDS: METOPROLOL TARTRATE 5 MG/5 ML INJ IV SCH ×4 (05:13→22:28)
[2017-11-05] MEDS: CLOPIDOGREL 75 MG TABLET PO SCH (10:19)
[2017-11-05] MEDS: FAMOTIDINE 20 MG/2 ML VIAL IV SCH ×2 (10:19→22:28)
[2017-11-05] MEDS: CEFTRIAXONE/SWI 1gm 1 GM/10 ML SYR IVP SCH (10:19)
[2017-11-05] MEDS: PANTOPRAZOLE 40 MG INJ IVP SCH (10:19)
--- NOTE | 2017-11-05 13:05 | P.PN ---
Subjective Date of Service: 11/05/17 Chief Complaint: ABDOMEN PAIN, DISTENSION, VOMITING Subjective: Improving (HE HAS HAD SMALL BM LAST NIGHT. NGT ALSO CAME OUT ON ITS OWN.) Review of Systems 10-point ROS is otherwise unremarkable Physical Examination - Vital Signs Temperature: 99.7 F Blood Pressure: 139/65 Pulse: 69 Respirations: 16 Pulse Ox (%): 92 - Physical Exam General: Mild distress HEENT: Atraumatic, PERRLA, EOMI Neck: Supple, JVD not distended Respiratory: Clear to auscultation bilaterally, Normal air movement Cardiovascular: Regular rate/rhythm, Normal S1 S2 Gastrointestinal: Normal bowel sounds, No tenderness Musculoskeletal: No tenderness Integumentary: No rashes Neurological: Normal speech, Normal tone, Normal affect Lymphatics: No axilla or inguinal lymphadenopathy - Studies Medications List Reviewed: Yes Assessment And Plan - Current Problems (Diagnosis) (1) Small bowel obstruction Onset Date: 11/04/17 Current Visit: Yes Status: Acute Plan: NGT WITH LIS POSS FROM ADHESIONS. HOPEFULLY WILL RECOVER WITHOUT SURGERY PROCESS EXPLAINED TO PATIENT AND . NGT WITH LIS CONTINUE NO BM YET DAILY FU DR. HAY TO FU. REDO X. RAY FU WITH DR HAY HE MAY BE ABLE TO CONTINUE FULL LIQ DIET. (2) COPD (chronic obstructive pulmonary disease) Onset Date: 11/04/17 Current Visit: Yes Status: Chronic Plan: NEBS STARTED NO NEED OF STEROIDS TODAY. SMOKER AND HAS POOR PROGNOSIS. Qualifiers: COPD type: emphysema Emphysema type: unspecified Qualified Code(s): J43.9 - Emphysema, unspecified (3) MCKINLEY (obstructive sleep apnea) Onset Date: 11/04/17 Current Visit: Yes Status: Chronic Plan: NOT ABLE TO USE CPAP FOR NOW USES AT HOME. (4) CAD (coronary artery disease) Onset Date: 11/04/17 Current Visit: Yes Status: Chronic Plan: NO ACUTE SYMPTOMS FOR NOW WILL RESUME ASPIRIN AND OTHER MEDS WHEN NGT COMES OUT. (5) CKD (chronic kidney disease) stage 3, GFR 30-59 ml/min Onset Date: 11/04/17 Current Visit: Yes Status: Chronic Plan: STABLE DOSE ADJUSTED OF MEDS. FU HAS WITH PROFESSOR OF ARCHAEOLOGY.
--- NOTE | 2017-11-05 13:54 | RAD REPORT ---
EXAM DESCRIPTION: RAD - Abdomen W Erect - 11/05/2017 1:38 pm CLINICAL HISTORY: Small bowel obstruction, abdominal pain COMPARISON: November 04 TECHNIQUE: Supine and upright views of the abdomen were obtained. FINDINGS: NG tube has been removed. No gastric distention or dilatation. Small bowel pattern has imp roved but is still dilated. Colon is decompressed. No free air or pneumatosis. Dense vascular calcifications are present. Aortoiliac stenting is in plac e. Prominent lumbar spine degenerative changes are present. IMPRESSION: Small bowel obstruction pattern has improved but not fully resolved. No free air or pneumatosis.
--- NOTE | 2017-11-05 14:55 | PN ---
Date of Progress Note: 11/05/2017 Reason For Service: Small bowel obstruction. Subjective: The patient is doing better, passing flatus, having good bowel movement. Still abdomen mildly distended. Review of Systems: Otherwise unremarkable. Physical Examination: General: The patient is awake and alert. HEENT: Pupils are anicteric. Abdomen: Soft and depressible. No guarding or rebound, although still distended. Extremities: No calf tenderness. X-ray is still pending. Laboratory Data: Blood work shows WBC count of 7.0 from yesterday. NG tube was pulled back by the patient this morning. Assessment: This is a 72-year-old patient, small bowel obstruction. Clinically looks lot better. W e will do an an x-ray today. If it looks great, then we will advance diet. If it looks not the way we would expect in his case, then we will proceed with small bowel series in the morning. PADMINI/WILLIAM Voice ID: [id number] Report ID: [id number]
[2017-11-05] MEDS: ENOXAPARIN 30 MG/0.3 ML SQ SCH (17:31)
--- NOTE | 2017-11-05 17:54 | P.PN ---
Subjective Date of Service: 11/05/17 Chief Complaint: ABDOMEN PAIN, DISTENSION, VOMITING Subjective: No new changes, Improving (SITTING ON THE COMMODE. COMFORTABLE.) Review of Systems 10-point ROS is otherwise unremarkable General: Weakness, Malaise Respiratory: Cough Physical Examination - Vital Signs Temperature: 97.4 F Blood Pressure: 158/74 Pulse: 70 Respirations: 16 Pulse Ox (%): 98 - Physical Exam General: Alert, Mild distress HEENT: Atraumatic, PERRLA, EOMI Neck: Supple, JVD not distended Respiratory: Diminished Cardiovascular: Regular rate/rhythm, Normal S1 S2 Gastrointestinal: Hypoactive Musculoskeletal: No tenderness Integumentary: No rashes Neurological: Normal speech, Normal tone, Normal affect Lymphatics: No axilla or inguinal lymphadenopathy - Studies Medications List Reviewed: Yes Assessment And Plan - Current Problems (Diagnosis) (1) Small bowel obstruction Onset Date: 11/04/17 Current Visit: Yes Status: Acute Plan: NGT WITH LIS POSS FROM ADHESIONS. HOPEFULLY WILL RECOVER WITHOUT SURGERY PROCESS EXPLAINED TO PATIENT AND . NGT WITH LIS CONTINUE NO BM YET DAILY FU DR. HAY TO FU. REDO X. RAY FU WITH DR HAY HE MAY BE ABLE TO CONTINUE FULL LIQ DIET. X RAYS SHOWS IMPROVEMENT BUT NOT CLEARED YET. STABLE. TO ADVANCE IN AM HOPEFULLY. (2) COPD (chronic obstructive pulmonary disease) Onset Date: 11/04/17 Current Visit: Yes Status: Chronic Plan: NEBS STARTED NO NEED OF STEROIDS TODAY. SMOKER AND HAS POOR PROGNOSIS. Qualifiers: COPD type: emphysema Emphysema type: unspecified Qualified Code(s): J43.9 - Emphysema, unspecified (3) MCKINLEY (obstructive sleep apnea) Onset Date: 11/04/17 Current Visit: Yes Status: Chronic Plan: NOT ABLE TO USE CPAP FOR NOW USES AT HOME. (4) CAD (coronary artery disease) Onset Date: 11/04/17 Current Visit: Yes Status: Chronic Plan: NO ACUTE SYMPTOMS FOR NOW WILL RESUME ASPIRIN AND OTHER MEDS WHEN NGT COMES OUT. (5) CKD (chronic kidney disease) stage 3, GFR 30-59 ml/min Onset Date: 11/04/17 Current Visit: Yes Status: Chronic Plan: STABLE DOSE ADJUSTED OF MEDS. FU HAS WITH REGISTERED PHARMACY TECHNICIAN.
[2017-11-06] MEDS: METRONIDAZOLE 500mg IVPB 500 MG/100 ML BAG IV SCH ×5 (00:06→22:50)
[2017-11-06] MEDS: ALBUTEROL 2.5 MG/3 ML NEB SOL NEB SCH ×4 (02:00→20:02)
[2017-11-06] MEDS: IPRATROPIUM BROM 0.5MG/2.5ML NEB SCH ×4 (02:00→20:02)
[2017-11-06] MEDS: METOPROLOL TARTRATE 5 MG/5 ML INJ IV SCH ×4 (05:16→21:39)
[2017-11-06] MEDS: ARFORMOTEROL TARTRATE 15 MCG/2 ML VIAL.NEB NEB SCH ×2 (08:45→20:02)
[2017-11-06] MEDS: CLOPIDOGREL 75 MG TABLET PO SCH (09:00)
[2017-11-06] MEDS: CEFTRIAXONE/SWI 1gm 1 GM/10 ML SYR IVP SCH (09:20)
[2017-11-06] MEDS: PANTOPRAZOLE 40 MG INJ IVP SCH (09:20)
[2017-11-06] MEDS: FAMOTIDINE 20 MG/2 ML VIAL IV SCH ×2 (09:21→21:41)
--- NOTE | 2017-11-06 11:52 | P.PN ---
Subjective Date of Service: 11/06/17 Chief Complaint: ABDOMEN PAIN, DISTENSION, VOMITING Subjective: Improving (HAD BM WITH SOFT STOOL TODAY.) Review of Systems 10-point ROS is otherwise unremarkable Respiratory: Shortness of Breath (CHR FROM COPD , SMOKING.) Physical Examination - Vital Signs Temperature: 97.4 F Blood Pressure: 160/77 Pulse: 78 Respirations: 20 Pulse Ox (%): 97 - Physical Exam General: Alert, Mild distress HEENT: Atraumatic, PERRLA, EOMI Neck: Supple, JVD not distended Respiratory: Clear to auscultation bilaterally, Normal air movement Cardiovascular: Regular rate/rhythm, Normal S1 S2 Gastrointestinal: Normal bowel sounds, No tenderness Musculoskeletal: No tenderness Integumentary: No rashes Neurological: Normal speech, Normal tone, Normal affect Lymphatics: No axilla or inguinal lymphadenopathy - Studies Medications List Reviewed: Yes Assessment And Plan - Current Problems (Diagnosis) (1) Small bowel obstruction Onset Date: 11/04/17 Current Visit: Yes Status: Acute Plan: NGT WITH LIS POSS FROM ADHESIONS. HOPEFULLY WILL RECOVER WITHOUT SURGERY PROCESS EXPLAINED TO PATIENT AND . NGT WITH LIS CONTINUE NO BM YET DAILY FU DR. HAY TO FU. REDO X. RAY FU WITH DR HAY HE MAY BE ABLE TO CONTINUE FULL LIQ DIET. X RAYS SHOWS IMPROVEMENT BUT NOT CLEARED YET. STABLE. TO ADVANCE IN AM HOPEFULLY. BETTER GRADUALLY SBF TODAY DC IN AM POSSIBLE. (2) COPD (chronic obstructive pulmonary disease) Onset Date: 11/04/17 Current Visit: Yes Status: Chronic Plan: NEBS STARTED NO NEED OF STEROIDS TODAY. SMOKER AND HAS POOR PROGNOSIS. Qualifiers: COPD type: emphysema Emphysema type: unspecified Qualified Code(s): J43.9 - Emphysema, unspecified (3) MCKINLEY (obstructive sleep apnea) Onset Date: 11/04/17 Current Visit: Yes Status: Chronic Plan: NOT ABLE TO USE CPAP FOR NOW USES AT HOME. (4) CAD (coronary artery disease) Onset Date: 11/04/17 Current Visit: Yes Status: Chronic Plan: NO ACUTE SYMPTOMS FOR NOW WILL RESUME ASPIRIN AND OTHER MEDS WHEN NGT COMES OUT. (5) CKD (chronic kidney disease) stage 3, GFR 30-59 ml/min Onset Date: 11/04/17 Current Visit: Yes Status: Chronic Plan: STABLE DOSE ADJUSTED OF MEDS. FU HAS WITH REGISTRAR MUSEUM.
[2017-11-06] MEDS: HYDRALAZINE HCL 20 MG/ML VIAL IV PRN ×2 (13:12→22:49)
[2017-11-06] MEDS: ENOXAPARIN 30 MG/0.3 ML SQ SCH (17:00)
--- NOTE | 2017-11-06 18:45 | RAD REPORT ---
EXAM DESCRIPTION: RAD - Small Bowel Series - 11/06/2017 4:42 pm CLINICAL HISTORY: Abdominal pain/ COMPARISON: None. FINDINGS: Contrast enters the colon by approximately 2-1/2 hours. The mucosal folds of the small bowel appear normal. No permanent filling defects, obstructing or constricting lesions are seen. The jejunum and most of the ileum is mildly dilated. The distal ileum is normal caliber. Contrast ent ers the colon IMPRESSION: Partial mechanical obstruction obstruction which is improved from a November 03 CAT scan
[2017-11-06] MEDS: NA CHLORIDE 0.9% 1,000 ML IV SCH (21:39)
[2017-11-07] MEDS: ALBUTEROL 2.5 MG/3 ML NEB SOL NEB SCH ×3 (01:43→13:53)
[2017-11-07] MEDS: IPRATROPIUM BROM 0.5MG/2.5ML NEB SCH ×3 (01:43→13:53)
[2017-11-07] MEDS: METOPROLOL TARTRATE 5 MG/5 ML INJ IV SCH ×2 (04:00→08:39)
[2017-11-07] MEDS: METRONIDAZOLE 500mg IVPB 500 MG/100 ML BAG IV SCH ×2 (04:54→11:58)
[2017-11-07] MEDS: ARFORMOTEROL TARTRATE 15 MCG/2 ML VIAL.NEB NEB SCH (07:42)
[2017-11-07] MEDS: PANTOPRAZOLE 40 MG INJ IVP SCH (08:33)
[2017-11-07] MEDS: FAMOTIDINE 20 MG/2 ML VIAL IV SCH (08:33)
[2017-11-07] MEDS: CLOPIDOGREL 75 MG TABLET PO SCH (08:33)
[2017-11-07] MEDS: NA CHLORIDE 0.9% 1,000 ML IV SCH (08:34)
[2017-11-07] MEDS: ONDANSETRON 4 MG/2 ML VIAL IV PRN (08:37)
[2017-11-07 09:44] VITALS: O2SAT 95
[2017-11-07 17:51] VITALS: BP 177/79; TEMP 97.7
== END 2017-11-07 18:27 | disposition home or self-care (01) | DRG 390 ==
LOC: ER 01:44 → ERHOLD 06:11 → 2ND 11:10
PROVIDERS: ADMIT Internal Medicine; ATTEND Internal Medicine
DX: K56.51 Intestinal adhesions [bands], with partial obstruction (principal); G47.33 Obstructive sleep apnea (adult) (pediatric); J43.9 Emphysema, unspecified; I12.9 Hypertensive chronic kidney disease with stage 1 through stage 4 chronic kidney disease, or unspecified chronic kidney disease; N18.3 Chronic kidney disease, stage 3 (moderate); I25.10 Atherosclerotic heart disease of native coronary artery without angina pectoris; R33.9 Retention of urine, unspecified; E66.01 Morbid (severe) obesity due to excess calories; F17.210 Nicotine dependence, cigarettes, uncomplicated; I73.9 Peripheral vascular disease, unspecified; Z79.02 Long term (current) use of antithrombotics/antiplatelets; Z79.82 Long term (current) use of aspirin; Z95.5 Presence of coronary angioplasty implant and graft; Z85.46 Personal history of malignant neoplasm of prostate; Z88.8 Allergy status to other drugs, medicaments and biological substances; Z91.048 Other nonmedicinal substance allergy status; Z68.32 Body mass index [BMI] 32.0-32.9, adult
CPT/HCPCS: 36415; 71045; 74019; 74176; 74250; 76377; 80048; 80076; 81003; 81015; 82150; 83690; 85025; 93005; 94640; 96361; 96365; 96368; 99285; C9113; J0360; J0696; J0744; J1650; J2405; J7030; J7605

== ENCOUNTER 2017-12-18 09:52 | Emergency (ER) | payer OTHER ==
--- OUTSIDE RECORDS SUMMARY | 2017-12-18 09:55 | XMS REPORT | Clinical Summary ---
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 Social History Tobacco Use Types Packs/Day Years Used Date Current Every Day Smoker Smokeless Tobacco: Never Used Alcohol Use Drinks/Week oz/Week Comments Yes 28 Shots of liquor 16.8 Sex Assigned at Date Recorded Not on file Last Filed Vital Signs Not on file Plan of Treatment Health Maintenance Due Date Last Done Comments INFLUENZA VACCINE 01/06/2018 Implants Implanted Type Area Services Manager Device Expiration Model / Identifier Date Serial / Lot Smart Control Stents-P Left: CORDIS 10/06/2016 [id number] / Implanted: Qty: 1 on 04/27/2014 by Gabriella Turpin MD eripherUPlanMe Arterial [employer] / l [id number] Smart Control Stents-P Right: CORDPiiku 11/06/2014 [id number] / Implanted: Qty: 1 on 04/27/2014 by Gabriella Turpin MD erSpotOnWay Arterial [employer] / l [id number] Express Ld Iliac/Biliary Stents-P Right: [employer] 12/07/2016 [id number] / Implanted: Qty: 1 on 04/27/2014 by Gabriella Turpin MD erSpotOnWay Arterial [employer] / l [id number] Lifestent Solo Vascular Stent BARD VASCULAR 12/22/2016 [id number] / Implanted: Qty: 1 on 05/12/2015 / [id number] Ovation Ix Abdominal Stent Graft N/A: Aorta [employer] 06/06/2018 [id number] / Implanted: Qty: 1 on 09/13/2015 by Gabriella Turpin MD / [id number] Ovation Ix Iliac Stent Graft Left: Iliac [employer] 07/31/2018 TV- [id number] / Implanted: Qty: 1 on 09/13/2015 by Gabriella Turpin MD / [id number] Ovation Ix Iliac Stent Graft Right: Iliac [employer] 08/03/2018 TV [id number] / Implanted: Qty: 1 on 09/13/2015 by Gabriella Turpin MD / [id number] Results Not on fileafter 12/17/2016
--- NOTE | 2017-12-18 10:35 | RAD REPORT ---
EXAM DESCRIPTION: CT - Stone Protocol - 12/18/2017 10:21 am CLINICAL HISTORY: Left flank pain, history of prostate cancer COMPARISON: CT November 03, 2017 and June 29, 2012 TECHNIQUE: Axial 5 mm thick images were obtained without oral or IV contrast. The pxejf-xn-ball span s the entirety of the system including uppermost abdomen and lung bases. All CT scans are performed using dose optimization technique as appropriate and may include automated exposure control or mA/KV adjustment according to patient size. FINDINGS: No hydronephrosis is present and no obstructing ureteral calculi. No nonobstructing calcul i seen. Patient has dense vascular calcifications. Both kidneys are lobulated. There are numerous ramonita iably sized round and oval renal masses low-density 2 hyperdense in characteristics. Upper pole left kidney shows a 7.0 centimeter fluid attenuation mass. Posterior mid left kidney demonstrates 5.6 cent imeter low-density mass with a 3.7 centimeter low-density mass anterior inferior left kidney. There a re numerous additional low-density and hyperdense masses. Right kidney contains a 3.6 centimeter low- density mass in the posterior mid right kidney. There is a 2.4 centimeter homogeneous exophytic isode nse mass lateral inferior right kidney. When comparing back to 1999 13 this general pattern has been present. The low-density presumed simple cysts have enlarged slightly over this long interval. The is odense mass lateral inferior right kidney has increased from 2.1 did 2.4 cm since 2012. While this ma ss is not fully characterized, a high protein or atypical cyst remains most likely. Stranding is seen in the retroperitoneal fat along the course of the left ureter. This dates back to 2012. There is a bilateral nonspecific perinephric stranding pattern. No urinary bladder abnormality. Prostate gland is prominent but not grossly enlarged. No invasion of adjacent structures. No adrenal abnormality. Imaged portions of the liver, spleen and pancreas show no suspicious findings on non-contrast imaging . Cholecystectomy clips are present. No biliary tree dilatation. No gastric dilatation or wall thickening. No acute small bowel finding. There is a no acute colon pro cess. Diverticulosis is minimal. Stool volume is [id number] throughout. Small bilateral fat filled inguinal hernias are present and stable. A very small umbilical hernia is present. No other mass or bulky lymphadenopathy seen. No omental thickening. No free air, pneumatosis or free fluid. Disc and bony degenerative changes are present. Patient has very dense arterial tree calcifications. Aortoiliac endovascular stenting is in place. There is partially mineralized mural thrombus in the ao rta. No acute aortic finding on noncontrast imaging. IMPRESSION: No hydronephrosis and no obstructing calculus. Isodense masses and pyelonephritis are not excluded on stone protocol technique. Patient has numerous variably sized renal masses from low-density to hyperdense. As detailed above, g eneral pattern is not significantly different from remote imaging. This is believed to be a combinati on of simple cysts, high protein content cysts and complex cysts. Bilateral perinephric and left retro peritoneal stranding have not changed from from prior imaging.
[2017-12-18] MEDS ORDERED: LEVALBUTEROL 1.25 MG/3 ML NEB ONE (11:14)
[2017-12-18] MEDS ORDERED: IPRATROPIUM BROM 0.5MG/2.5ML ONE (11:14)
[2017-12-18 11:25] LABS: Absolute Lymphocytes (CBC) 1.1 K/uL (0.7-4.9); Absolute Monocytes 0.5 K/uL (0.1-1.3); Absolute Neutrophil 4.1 K/uL (1.8-8.0); Basophils % 0.7 % (0-1.3); Hematocrit 36.9 % (39.6-49.0); Lymphocytes % 19.9 % (15.3-44.8); MPV 9.7 fL (7.6-11.3); RBC Red Blood Cell Count 3.88 M/uL (4.33-5.43)
[2017-12-18 11:41] LABS: Potassium 5.3 mmol/L (3.5-5.1)
[2017-12-18] MEDS ORDERED: ONDANSETRON 4 MG/2 ML VIAL ONE (11:51)
[2017-12-18] MEDS ORDERED: MORPHINE 4 MG/ML SYR ONE (11:51)
[2017-12-18 12:51] LABS: Urine Blood NEGATIVE (NEG); Urine Glucose NEGATIVE (NEG); Urine Protein NEGATIVE (NEG); Urine Specific Gravity 1.015 (1.005-1.030)
[2017-12-18 13:06] LABS: Urine Bacteria NONE SEEN /HPF (NONE SEEN); Urine Culture Reflex Order NOT NEEDED; Urine RBC <5 /HPF (NONE SEEN)
--- NOTE | 2017-12-18 13:26 | EDPHYS ---
Physician Documentation [facility] Name: Enrrique Vaughn Age: 72 yrs Sex: Male : 1945 Arrival Date: 12/18/2017 Time: 09:57 Bed 20 Private MD: ED Physician Myesha Boyd HPI: 12/18 13:48 This 72 yrs old Male presents to ER via Other with complaints of Back Pain. kb 13:48 The patient presents with pain that is acute, with no known mechanism of injury. The kb symptoms are located in the left low back. Onset: The symptoms/episode began/occurred yesterday. The pain radiates to the left lower quadrant. Associated signs and symptoms: Pertinent positives: abdominal pain, Pertinent negatives: chest pain, constipation, dysuria, fever, headache, hematuria, incontinence, nausea, numbness, tingling, urinary retention, vomiting, weakness. The problem was sustained from unknown cause. Modifying factors: The patient symptoms are alleviated by rest, the patient symptoms are aggravated by any movement. Severity of symptoms: At their worst the symptoms were mild, moderate, in the emergency department the symptoms are unchanged. The patient has not experienced similar symptoms in the past. The patient has not recently seen a physician. Pt reports left low back pain that started yesterday. Thought it was a kidney stone because of the pain location so he went to see Dr Jackson. Dr Jackson sent him here to r/o stone. Pt reports pain resolves with rest, but comes back when he moves around. Historical: - Allergies: 10:10 Lipitor; sv 10:10 Niaspan; sv 10:10 Paxil; sv 10:10 Tape; sv - Home Meds: 10:10 allopurinol 300 mg Oral tab 1 tab once daily [Active]; Combivent 18-103 mcg/actuation sv Inhl aero as needed [Active]; Protonix 40 mg Oral TbEC 1 tab once daily [Active]; Cymbalta 60 mg Oral cpDR 1 cap once daily [Active]; metoprolol tartrate 100 mg Oral tab 1 tab once daily [Active]; Plavix 75 mg Oral tab 1 tab once daily [Active]; aspirin 325 mg Oral tab 1 tab once daily [Active]; Crestor 20 mg Oral tab 1 tab once daily [Active]; Trilipix 135 mg Oral cpDR 1 cap once daily [Active]; Flomax 0.4 mg Oral cp24 1 cap once daily [Active]; Avodart 0.5 mg Oral cap 1 cap once daily [Active]; Lyrica Oral 1 cap 2 times per day [Active]; Vitamin C 1,000 mg Oral tab daily [Active]; - PMHx: 10:10 COPD; Hypertension; Prostate Cancer; sv - PSHx: 10:10 Heart stents; sv - Immunization history:: Adult Immunizations up to date. - Social history:: Smoking status: Patient uses tobacco products, smokes one pack cigarettes per day. - Ebola Screening: : No symptoms or risks identified at this time. ROS: 13:46 Constitutional: Negative for fever, chills, and weight loss, ENT: Negative for injury, kb pain, and discharge, Neck: Negative for injury, pain, and swelling, Cardiovascular: Negative for chest pain, palpitations, and edema, Respiratory: Negative for shortness of breath, cough, wheezing, and pleuritic chest pain, Abdomen/GI: Negative for abdominal pain, nausea, vomiting, diarrhea, and constipation, : Negative for injury, bleeding, discharge, and swelling, MS/Extremity: Negative for injury and deformity, Skin: Negative for injury, rash, and discoloration, Neuro: Negative for headache, weakness, numbness, tingling, and seizure. 13:46 Back: Positive for pain with movement, radiated pain, of the left low back. Exam: 13:46 Constitutional: This is a well developed, well nourished patient who is awake, alert, kb and in no acute distress. Head/Face: Normocephalic, atraumatic. Neck: Trachea midline, no thyromegaly or masses palpated, and no cervical lymphadenopathy. Supple, full range of motion without nuchal rigidity, or vertebral point tenderness. No Meningismus. Chest/axilla: Normal chest wall appearance and motion. Nontender with no deformity. No lesions are appreciated. Cardiovascular: Regular rate and rhythm with a normal S1 and S2. No gallops, murmurs, or rubs. Normal PMI, no JVD. No pulse deficits. Respiratory: Lungs have equal breath sounds bilaterally, clear to auscultation and percussion. No rales, rhonchi or wheezes noted. No increased work of breathing, no retractions or nasal flaring. Back: No spinal tenderness. No costovertebral tenderness. Full range of motion. Skin: Warm, dry with normal turgor. Normal color with no rashes, no lesions, and no evidence of cellulitis. MS/ Extremity: Pulses equal, no cyanosis. Neurovascular intact. Full, normal range of motion. Neuro: Awake and alert, GCS 15, oriented to person, place, time, and situation. Cranial nerves II-XII grossly intact. Motor strength 5/5 in all extremities. Sensory grossly intact. Cerebellar exam normal. Normal gait. 13:46 Abdomen/GI: Inspection: abdomen appears normal, Bowel sounds: normal, Palpation: soft, mild abdominal tenderness, in the left upper quadrant and left lower quadrant. Vital Signs: 10:10 BP 137 / 67; Pulse 69; Resp 24; Temp 96.9; Pulse Ox 95% ; Weight 90.72 kg; Height 5 ft. sv 6 in. (167.64 cm); Pain 0/10; 11:17 BP 182 / 85; Pulse 52; Resp 18; Pulse Ox 100% on R/A; aj1 12:15 BP 173 / 88; Pulse 56; Resp 20; Pulse Ox 96% on R/A; aj1 13:28 BP 160 / 87; Pulse 58; Resp 18; Pulse Ox 95% on R/A; aj1 14:41 BP 162 / 85; Pulse 58; Resp 20; Pulse Ox 96% on R/A; aj1 10:10 Body Mass Index 32.28 (90.72 kg, 167.64 cm) sv MDM: 10:02 Patient medically screened. kb 13:25 Data reviewed: vital signs, nurses notes. Data interpreted: Pulse oximetry: on room air kb is 100 %. Interpretation: normal. Counseling: I had a detailed discussion with the patient and/or guardian regarding: the historical points, exam findings, and any diagnostic results supporting the discharge/admit diagnosis, lab results, radiology results, the need for outpatient follow up, a family practitioner, to return to the emergency department if symptoms worsen or persist or if there are any questions or concerns that arise at home. 13:26 ED course: Discussed findings with ERP. No ekg changes noted. In agreement to give kb albuterol and kayexelate for hyperkalemia and pt to follow up outpatient. . 12/18 10:09 Order name: CBC with Diff; Complete Time: 11:30 kb 12/18 10:09 Order name: Basic Metabolic Panel; Complete Time: 12:10 kb 12/18 10:09 Order name: Urine Microscopic Only; Complete Time: 13:07 kb 12/18 10:09 Order name: CT Stone Protocol; Complete Time: 10:37 kb 12/18 12:30 Order name: Urine Dipstick--Ancillary (enter results); Complete Time: 12:57 eb 12/18 10:09 Order name: Urine Dipstick-Ancillary (obtain specimen); Complete Time: 12:30 kb 12/18 10:09 Order name: IV Start; Complete Time: 11:18 kb 12/18 12:30 Order name: EKG; Complete Time: 12:30 kb 12/18 12:30 Order name: EKG - Nurse/Tech; Complete Time: 12:34 kb 12/18 13:17 Order name: Vital Signs; Complete Time: 13:31 kb Administered Medications: 11:14 Drug: AtroVENT Aerosol 0.5 mg Route: Inhalation; aj1 13:25 Follow up: Response: No adverse reaction aj1 11:14 Drug: Xopenex (3) 1.25 mg Route: Inhalation; aj1 13:26 Follow up: Response: No adverse reaction aj1 11:51 Drug: morphine 4 mg Route: IVP; Site: right antecubital; aj1 12:15 Follow up: Response: No adverse reaction aj1 11:51 Drug: Zofran 4 mg Route: IVP; Site: right antecubital; aj1 12:15 Follow up: Response: No adverse reaction aj1 13:38 Drug: Kayexalate 30 grams Route: PO; aj1 14:42 Follow up: Response: No adverse reaction aj1 13:49 Drug: Albuterol 2.5 mg Route: Inhalation; ph 14:00 Drug: Albuterol 2.5 mg Route: Inhalation; aj1 14:10 Drug: Albuterol 2.5 mg Route: Inhalation; aj1 14:42 Follow up: Response: No adverse reaction aj1 Disposition: 18:49 Co-signature as Attending Physician, Myesha Boyd MD. ma2 Disposition: 12/18/17 13:25 Discharged to Home. Impression: Low back pain, Hyperkalemia. - Condition is Stable. - Discharge Instructions: Hyperkalemia, [id number], Back Pain, Adult, [id number]. - Prescriptions for orphenadrine citrate 100 mg Oral Tablet Sustained Release - take 1 tablet by ORAL route 2 times per day As needed; 20 tablet. - Medication Reconciliation Form, Thank You Letter, Antibiotic Education, Prescription Opioid Use form. - Follow up: Emergency Department; When: As needed; Reason: Worsening of condition. Follow up: Private Physician; When: 2 - 3 days; Reason: Recheck today's complaints, Continuance of care, Re-evaluation by your physician. Signatures: Dispatcher [employer] EDMS Joanne Ferrer, TOLL GATE TENDER-C TOLL GATE TENDER-Carol Dhaliwal RN RN aj1 Dina Maya RN RN Shannon Kitchen RN RN Myesha Boyd MD MD ma2 Corrections: (The following items were deleted from the chart) 14:43 13:25 12/18/2017 13:25 Discharged to Home. Impression: Low back pain; Hyperkalemia. aj1 Condition is Stable. Forms are Medication Reconciliation Form, Thank You Letter, Antibiotic Education, Prescription Opioid Use. Follow up: Emergency Department; When: As needed; Reason: Worsening of condition. Follow up: Private Physician; When: 2 - 3 days; Reason: Recheck today's complaints, Continuance of care, Re-evaluation by your physician. kb
--- NOTE | 2017-12-18 13:26 | ER ---
Nurse's Notes [facility] Name: Enrrique Vaughn Age: 72 yrs Sex: Male : 1945 Arrival Date: 12/18/2017 Time: 09:57 Bed 20 Private MD: Diagnosis: Low back pain;Hyperkalemia Presentation: 12/18 10:02 Presenting complaint: Patient states: sent by Dr Jackson to r/o kidney stones. c/o left sv flank pain. Transition of care: patient was received from another setting of care (ambulatory specialty care practice), sent by Dr Jackson. Onset of symptoms was December 18, 2017. Care prior to arrival: None. 10:02 Method Of Arrival: Other sv 10:02 Acuity: SAMANTHA 3 sv 14:42 Risk Assessment: Do you want to hurt yourself or someone else? Patient reports no aj1 desire to harm self or others. Initial Sepsis Screen: Does the patient meet any 2 criteria? No. Patient's initial sepsis screen is negative. Does the patient have a suspected source of infection? No. Patient's initial sepsis screen is negative. Historical: - Allergies: 10:10 Lipitor; sv 10:10 Niaspan; sv 10:10 Paxil; sv 10:10 Tape; sv - Home Meds: 10:10 allopurinol 300 mg Oral tab 1 tab once daily [Active]; Combivent 18-103 mcg/actuation sv Inhl aero as needed [Active]; Protonix 40 mg Oral TbEC 1 tab once daily [Active]; Cymbalta 60 mg Oral cpDR 1 cap once daily [Active]; metoprolol tartrate 100 mg Oral tab 1 tab once daily [Active]; Plavix 75 mg Oral tab 1 tab once daily [Active]; aspirin 325 mg Oral tab 1 tab once daily [Active]; Crestor 20 mg Oral tab 1 tab once daily [Active]; Trilipix 135 mg Oral cpDR 1 cap once daily [Active]; Flomax 0.4 mg Oral cp24 1 cap once daily [Active]; Avodart 0.5 mg Oral cap 1 cap once daily [Active]; Lyrica Oral 1 cap 2 times per day [Active]; Vitamin C 1,000 mg Oral tab daily [Active]; - PMHx: 10:10 COPD; Hypertension; Prostate Cancer; sv - PSHx: 10:10 Heart stents; sv - Immunization history:: Adult Immunizations up to date. - Social history:: Smoking status: Patient uses tobacco products, smokes one pack cigarettes per day. - Ebola Screening: : No symptoms or risks identified at this time. Screenin:15 Abuse screen: Denies threats or abuse. Denies injuries from another. Nutritional aj1 screening: No deficits noted. Tuberculosis screening: No symptoms or risk factors identified. 14:43 Fall Risk None identified. aj1 Assessment: 11:15 General: Appears in no apparent distress. comfortable, Behavior is calm, cooperative, aj1 appropriate for age. Pain: Complains of pain in left low back Pain radiates to right lower quadrant and pelvis Pain currently is 0 out of 10 on a pain scale. at worst was 10 out of 10 on a pain scale. Quality of pain is described as sharp, Is intermittent, Alleviated by rest, Aggravated by repositioning. Neuro: Level of Consciousness is awake, alert, obeys commands, Speech is normal, Facial symmetry appears normal. Cardiovascular: Patient's skin is warm and dry. Respiratory: Airway is patent Respiratory effort is even, unlabored, Respiratory pattern is regular, symmetrical. GI: No signs and/or symptoms were reported involving the gastrointestinal system. : Reports flank pain. EENT: No signs and/or symptoms were reported regarding the EENT system. Derm: No signs and/or symptoms reported regarding the dermatologic system. Skin is pink, warm \T\ dry. normal. Musculoskeletal: No signs and/or symptoms reported regarding the musculoskeletal system. Circulation, motion, and sensation intact. 12:15 Reassessment: Patient appears in no apparent distress at this time. No changes from aj1 previously documented assessment. Patient and/or family updated on plan of care and expected duration. Pain level reassessed. Patient is alert, oriented x 3, equal unlabored respirations, skin warm/dry/pink. 13:15 Reassessment: Patient and/or family updated on plan of care and expected duration. Pain aj1 level reassessed. General: Appears in no apparent distress. comfortable, Behavior is calm, cooperative. Neuro: Level of Consciousness is awake, alert, obeys commands, Speech is normal, Facial symmetry appears normal. Cardiovascular: Patient's skin is warm and dry. Respiratory: Airway is patent Respiratory effort is even, unlabored, Respiratory pattern is regular, symmetrical. Derm: Skin is pink, warm \T\ dry. normal. Musculoskeletal: Circulation, motion, and sensation intact. 14:15 Reassessment: Patient appears in no apparent distress at this time. No changes from aj1 previously documented assessment. Patient and/or family updated on plan of care and expected duration. Pain level reassessed. Patient is alert, oriented x 3, equal unlabored respirations, skin warm/dry/pink. Vital Signs: 10:10 BP 137 / 67; Pulse 69; Resp 24; Temp 96.9; Pulse Ox 95% ; Weight 90.72 kg; Height 5 ft. sv 6 in. (167.64 cm); Pain 0/10; 11:17 BP 182 / 85; Pulse 52; Resp 18; Pulse Ox 100% on R/A; aj1 12:15 BP 173 / 88; Pulse 56; Resp 20; Pulse Ox 96% on R/A; aj1 13:28 BP 160 / 87; Pulse 58; Resp 18; Pulse Ox 95% on R/A; aj1 14:41 BP 162 / 85; Pulse 58; Resp 20; Pulse Ox 96% on R/A; aj1 10:10 Body Mass Index 32.28 (90.72 kg, 167.64 cm) sv ED Course: 09:57 Patient arrived in ED. sb2 10:02 Joanne Ferrer [facility]-C [facility] kb 10:02 Myesha Boyd MD is Attending Physician. kb 10:02 Arm band placed on right wrist. Patient placed in an exam room, on a stretcher, on sv pulse oximetry. 10:09 Triage completed. sv 10:20 CT completed. Patient tolerated procedure well. Patient moved to CT via wheelchair. sj Patient moved back from CT. 10:20 CT Stone Protocol In Process Unspecified. EDMS 10:49 Carol Patel, CHRISTOPHER is Primary Nurse. aj1 11:05 Pulse ox on. jp3 11:10 Initial lab(s) drawn, by me, sent to lab. Inserted saline lock: 20 gauge in right jp3 antecubital area, using aseptic technique. Blood collected. 11:15 Patient has correct armband on for positive identification. Bed in low position. Call aj1 light in reach. Side rails up X 1. 11:15 No provider procedures requiring assistance completed. aj1 11:17 Warm blanket given. jp3 11:18 Basic Metabolic Panel Sent. jp3 11:18 CBC with Diff Sent. jp3 12:20 Urine collected: clean catch specimen, clear, karthikeyan colored, Amount Voided: 90mL. jp3 12:30 Urine Microscopic Only Sent. jp3 12:57 EKG done, by rv repair technician. reviewed by Joanne ZAPATA. at1 13:29 Oxygen administration via nasal cannula \T\ 2L/min. jp3 14:20 IV discontinued, intact, bleeding controlled, No redness/swelling at site. Pressure jp3 dressing applied. 14:43 IV discontinued, as documented above. aj1 Administered Medications: 11:14 Drug: AtroVENT Aerosol 0.5 mg Route: Inhalation; aj1 13:25 Follow up: Response: No adverse reaction aj1 11:14 Drug: Xopenex (3) 1.25 mg Route: Inhalation; aj1 13:26 Follow up: Response: No adverse reaction aj1 11:51 Drug: morphine 4 mg Route: IVP; Site: right antecubital; aj1 12:15 Follow up: Response: No adverse reaction aj1 11:51 Drug: Zofran 4 mg Route: IVP; Site: right antecubital; aj1 12:15 Follow up: Response: No adverse reaction aj1 13:38 Drug: Kayexalate 30 grams Route: PO; aj1 14:42 Follow up: Response: No adverse reaction aj1 13:49 Drug: Albuterol 2.5 mg Route: Inhalation; ph 14:00 Drug: Albuterol 2.5 mg Route: Inhalation; aj1 14:10 Drug: Albuterol 2.5 mg Route: Inhalation; aj1 14:42 Follow up: Response: No adverse reaction aj1 Outcome: 13:25 Discharge ordered by . kb 14:43 Discharged to home via wheelchair, with family. aj1 14:43 Condition: good 14:43 Discharge instructions given to patient, Instructed on discharge instructions, follow up and referral plans. medication usage, Demonstrated understanding of instructions, follow-up care, medications, Prescriptions given X 1. 14:43 Patient left the ED. aj1 Signatures: Dispatcher [employer] EDCA Joanne Ferrer FNP-C FNP-Carol Dhaliwal RN RN aj1 Dina Maya RN RN sv Jones, Susan sj Gonzales, Sola, slate picker EKG Tat1 Shannon Kitchen, RN RN ph Monisha Pat sb2 Khoa Lux jp3
[2017-12-18] MEDS ORDERED: SOD POLYSTYREN SUL 15 GM/60 ML UCUP ONE (13:38)
[2017-12-18] MEDS ORDERED: ALBUTEROL 2.5 MG/3 ML NEB SOL ONE (13:38)
[2017-12-18 14:53] VITALS: TEMP 96.9
[2017-12-18 14:58] VITALS: BP 162/85; O2SAT 96
--- NOTE | 2017-12-18 19:12 | EKG ---
Test Date: 2017-12-18 Test Time: 12:38:08 Bottom Ironer: TAE MEASUREMENT RESULTS: Intervals: Rate: 57 [place]: 182 QRSD: 84 QT: 404 QTc: 393 [place]: P: 17 [place]: 182 QRS: 60 T: 81 INTERPRETIVE STATEMENTS: Sinus bradycardia Otherwise normal ECG Compared to ECG 11/03/2017 02:02:13 Sinus rhythm no longer present Electronically Signed On 12-18-17 19:10:03 CDT by Ramón Epps
== END 2017-12-18 14:43 | disposition home or self-care (01) ==
LOC: ER 09:52
DX: E87.5 Hyperkalemia (principal); F17.210 Nicotine dependence, cigarettes, uncomplicated; I10 Essential (primary) hypertension; J44.9 Chronic obstructive pulmonary disease, unspecified; Z79.01 Long term (current) use of anticoagulants; Z79.82 Long term (current) use of aspirin; Z88.5 Allergy status to narcotic agent; Z88.8 Allergy status to other drugs, medicaments and biological substances; Z85.46 Personal history of malignant neoplasm of prostate; Z91.048 Other nonmedicinal substance allergy status; Z95.818 Presence of other cardiac implants and grafts
CPT/HCPCS: 36415; 74176; 76377; 80048; 85025; 93005; J2405; 81003; 81015; 96374; 96375; 99285

== ENCOUNTER 2018-06-08 14:39 | Emergency (ER) | payer OTHER ==
--- OUTSIDE RECORDS SUMMARY | 2018-06-08 14:41 | XMS REPORT | Clinical Summary ---
:1945 [address] [facility] Address [address] [place] [address] Care Team Providers Name Role Phone Julio Stratton Primary Care Provider Allergies Active Allergy Reactions Severity Noted Date Comments Adhesive Tape Rash Low 04/26/2014 USE PAPER TAPE ONLY Atorvastatin 04/26/2014 Niacin 04/26/2014 Paroxetine Hcl 04/27/2014 PARADOXICAL RXN Medications Medication Sig Dispensed Refills Start Date End Date Status clopidogrel (PLAVIX) 75 Take 75 mg by 0 Active mg tablet mouth daily. aspirin 325 MG tablet Take 325 mg by 0 Active mouth daily. pantoprazole (PROTONIX) Take 40 mg by 0 Active 40 MG tablet mouth daily. pitavastatin (LIVALO) 4 Take 4 mg by 0 Active mg Tab mouth daily. tamsulosin (FLOMAX) 0.4 Take 0.4 mg by 0 Active mg Cp24 24 hr capsule mouth daily. fenofibric acid, Take 135 mg by 0 Active choline, 135 mg capsule mouth daily. dutasteride (AVODART) Take 0.5 mg by 0 Active 0.5 mg capsule mouth daily. allopurinol (ZYLOPRIM) Take 300 mg by 0 Active 300 MG tablet mouth daily. gabapentin (NEURONTIN) Take 300 mg by 0 Active 300 MG capsule mouth 2 (two) times daily. albuterol-ipratropium Inhale 2 puffs by 0 Active (COMBIVENT) 18-103 mouth via inhaler mcg/actuation inhaler every 6 (six) hours as needed for Wheezing. metoprolol (LOPRESSOR) Take 25 mg by 0 Active 25 MG tablet mouth daily . fentaNYL (DURAGESIC) 12 Place 2 patches 0 Active mcg/hr patch onto the skin every third day. 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 Last Filed Vital Signs Not on file Plan of Treatment Health Maintenance Due Date Last Done Comments INFLUENZA VACCINE 01/06/2018 Implants Implanted Type Area Quality Management Coordinator Device Shelf Model / Identifier Expiration Serial / Date Lot Smart Control Stents-P Left: CORDIS 10/06/2016 [id number] / Implanted: Qty: 1 on 04/27/2014 by Gabriella Turpin MD eripherBioceros Arterial Glu Mobile / l [id number] Smart Control Stents-P Right: CORDFarmol 11/06/2014 [id number] / Implanted: Qty: 1 on 04/27/2014 by Gabriella Turpin MD eripherBioceros Arterial Glu Mobile / l [id number] Express Ld Iliac/Biliary Stents-P Right: Medical Compression Systems 12/07/2016 [id number] / Implanted: Qty: 1 on 04/27/2014 by Gabriella Turpin MD erAOMi Arterial SCIENTIFIC / l [id number] Lifestent Solo Vascular Stent BARD VASCULAR 12/22/2016 [id number] / Implanted: Qty: 1 on 05/12/2015 / [id number] Ovation Ix Abdominal Stent Graft N/A: Aorta TRIVASCULAR INC 06/06/2018 [id number] / Implanted: Qty: 1 on 09/13/2015 by Gabriella Turpin MD / [id number] Ovation Ix Iliac Stent Graft Left: Iliac TRIVASCULAR INC 07/31/2018 TV- [id number] / Implanted: Qty: 1 on 09/13/2015 by Gabriella Turpin MD / [id number] Ovation Ix Iliac Stent Graft Right: Iliac TRIVASCULAR INC 08/03/2018 TV [id number] / Implanted: Qty: 1 on 09/13/2015 by Gabriella Turpin MD / [id number] Results Not on fileafter 06/07/2017 Insurance Payer Benefit Plan / Group Subscriber ID Type Phone Address MEDICARE MEDICARE A B xxxxxxxxxx Medicare [facility] GENERIC MEDICARE xxxxxxxxxx Medigap SUPPLEMENT/INDIVIDUAL SUPPLEMENT Advance Directives For more information, please contact:[address] [phone] Code Status Date Activated Date Inactivated Comments Full Code 09/13/2015 12:31 PM 09/14/2015 12:57 PM This code status was determined by: Patient Full Code 09/13/2015 6:02 AM 09/13/2015 12:31 PM This code status was determined by: Patient Full Code 05/12/2015 6:13 AM 05/17/2015 4:03 PM This code status was determined by: Patient Full Code 04/27/2014 6:06 AM 04/27/2014 4:36 PM This code status was determined by: Patient
[2018-06-08] MEDS ORDERED: HYDROCODONE/APAP 10/325 TAB ONE (16:05)
--- NOTE | 2018-06-08 16:58 | RAD REPORT ---
EXAM DESCRIPTION: RAD - Knee Right 3 View - 06/08/2018 4:03 pm CLINICAL HISTORY: Knee pain COMPARISON: None. FINDINGS: No fracture, dislocation or periosteal reaction.No measurable joint effusion seen. Knee is flexed on all images. Prominent medial compartment marginal spurs are present. Patella femoral joint space is narrowed slightly. Spurring is seen at the patella tendon origin. No foreign body or other soft tissue abnormality. Arterial tree calcifications are present. IMPRESSION: Moderately prominent right knee degenerative change. No acute finding. Clinical concerns for internal derangement or occult bony injury could be further assessed with MR im aging.
--- NOTE | 2018-06-08 17:01 | RAD REPORT ---
EXAM DESCRIPTION: US - Extremity Venous Uni Ltd - 06/08/2018 4:44 pm CLINICAL HISTORY: Leg pain and swelling COMPARISON: None. TECHNIQUE: Real-time sonographic evaluation of the right lower extremity deep venous systems was per formed. FINDINGS: Normal compressibility, flow augmentation, phasic flow and spontaneous flow are identified in the right lower extremity common femoral, superficial femoral, popliteal and posterior tibial vei ns. No intraluminal filling defects seen. IMPRESSION: No DVT in the right lower extremity.
--- NOTE | 2018-06-08 17:39 | EDPHYS ---
Physician Documentation [facility] Name: Enrrique Vaughn Age: 72 yrs Sex: Male : 1945 Arrival Date: 06/08/2018 Time: 14:41 Bed 5 Private MD: Julio Stratton V ED Physician Cory Silva HPI: 06/08 17:25 This 72 yrs old Male presents to ER via Wheelchair with complaints of Leg gs Pain. 17:25 The patient presents with pain. The complaints affect the right knee. Onset: The gs symptoms/episode began/occurred 2 day(s) ago. Modifying factors: the symptoms are aggravated by bending knee, unable to fully extend knee. Associated signs and symptoms: Pertinent negatives weakness. Severity of symptoms: At their worst the symptoms were severe, in the emergency department the symptoms are unchanged. The patient has not experienced similar symptoms in the past. Historical: - Allergies: 14:46 Lipitor; la1 14:46 Niaspan; la1 14:46 Paxil; la1 14:46 Tape; la1 - PMHx: 14:46 COPD; Hypertension; Prostate Cancer; la1 - Immunization history:: Adult Immunizations up to date. - Social history:: Smoking status: Patient uses tobacco products, smokes one pack cigarettes per day. - Ebola Screening: : No symptoms or risks identified at this time. ROS: 17:25 All other systems are negative. gs Exam: 17:25 Head/Face: Normocephalic, atraumatic. ENT: Nares patent. No nasal discharge, no gs septal abnormalities noted. Tympanic membranes are normal and external auditory canals are clear. Oropharynx with no redness, swelling, or masses, exudates, or evidence of obstruction, uvula midline. Mucous membranes moist. Neck: Trachea midline, no thyromegaly or masses palpated, and no cervical lymphadenopathy. Supple, full range of motion without nuchal rigidity, or vertebral point tenderness. No Meningismus. Cardiovascular: Regular rate and rhythm with a normal S1 and S2. No gallops, murmurs, or rubs. Normal PMI, no JVD. No pulse deficits. Abdomen/GI: Soft, non-tender, with normal bowel sounds. No distension or tympany. No guarding or rebound. No evidence of tenderness throughout. Back: No spinal tenderness. No costovertebral tenderness. Full range of motion. Skin: Warm, dry with normal turgor. Normal color with no rashes, no lesions, and no evidence of cellulitis. Neuro: Awake and alert, GCS 15, oriented to person, place, time, and situation. Cranial nerves II-XII grossly intact. Motor strength 5/5 in all extremities. Sensory grossly intact. Cerebellar exam normal. Normal gait. 17:25 Constitutional: The patient appears alert, awake. 17:25 Musculoskeletal/extremity: ROM: limited active range of motion, limited passive range of motion, limited active range of motion due to pain, limited passive range of motion due to pain, in the right knee, Pulses: noted to be 2+ in the right posterior tibial artery, noted to be 1+ in the left posterior tibial artery, lle cool not threatened states has claudication symptoms for several month, Joints: the right knee displays limited range of motion, painful range of motion. Vital Signs: 14:46 BP 129 / 66; Pulse 71; Resp 18; Temp 97.6; Pulse Ox 96% on R/A; Weight 99.79 kg; Height la1 5 ft. 6 in. (167.64 cm); 16:00 BP 137 / 67; Pulse 60; Resp 20 S; Pulse Ox 95% on R/A; aa5 14:46 Body Mass Index 35.51 (99.79 kg, 167.64 cm) la1 MDM: 15:29 Patient medically screened. gs 17:25 Differential diagnosis: closed fracture, tendonitis, internal derangement. Data gs reviewed: vital signs, nurses notes, radiologic studies. 06/08 15:30 Order name: Knee Right 3 View XRAY; Complete Time: 17:18 06/08 15:46 Order name: US Extremity Venous Unilateral Ltd; Complete Time: 17:18 Administered Medications: 15:58 Drug: [place] 10 mg-325 mg 1 tabs Route: PO; aa5 17:00 Follow up: Response: No adverse reaction; Pain is decreased aa5 Disposition: 06/08/18 17:38 Discharged to Home. Impression: Unspecified internal derangement of right knee. - Condition is Stable. - Discharge Instructions: Knee - Meniscus Injury, Arthroscopy, Knee Arthroscopy. - Prescriptions for Tylenol- Codeine #4 300-60 mg Oral Tablet - take 1 tablet by ORAL route every 12 hours As needed; 10 tablet. - Medication Reconciliation Form, Thank You Letter, Antibiotic Education, Prescription Opioid Use form. - Follow up: Speedy Caldera MD; When: 2 - 3 days; Reason: Re-evaluation by your physician. Signatures: Dispatcher [employer] EDJanene Camejo RN RN aa5 Winston Nassar RN RN la1 Cory Silva MD MD gs Corrections: (The following items were deleted from the chart) 17:56 17:38 06/08/2018 17:38 Discharged to Home. Impression: Unspecified internal derangement aa5 of right knee. Condition is Stable. Forms are Medication Reconciliation Form, Thank You Letter, Antibiotic Education, Prescription Opioid Use. Follow up: Speedy Caldera; When: 2 - 3 days; Reason: Re-evaluation by your physician. gs
--- NOTE | 2018-06-08 17:39 | ER ---
Nurse's Notes [facility] Name: Enrrique Vaughn Age: 72 yrs Sex: Male : 1945 Arrival Date: 06/08/2018 Time: 14:41 Bed 5 Private MD: Julio Stratton V Diagnosis: Unspecified internal derangement of right knee Presentation: 06/08 14:44 Presenting complaint: Patient states: I have pain in my right leg when I extend it or la1 put weight on it. Transition of care: patient was not received from another setting of care. Onset of symptoms was June 08, 2018. Risk Assessment: Do you want to hurt yourself or someone else? Patient reports no desire to harm self or others. Initial Sepsis Screen: Does the patient meet any 2 criteria? No. Patient's initial sepsis screen is negative. Does the patient have a suspected source of infection? No. Patient's initial sepsis screen is negative. Care prior to arrival: None. 14:44 Method Of Arrival: Wheelchair la1 14:44 Acuity: SAMANTHA 3 la1 Historical: - Allergies: 14:46 Lipitor; la1 14:46 Niaspan; la1 14:46 Paxil; la1 14:46 Tape; la1 - PMHx: 14:46 COPD; Hypertension; Prostate Cancer; la1 - Immunization history:: Adult Immunizations up to date. - Social history:: Smoking status: Patient uses tobacco products, smokes one pack cigarettes per day. - Ebola Screening: : No symptoms or risks identified at this time. Screenin:03 Abuse screen: Denies threats or abuse. Nutritional screening: No deficits noted. aa5 Tuberculosis screening: No symptoms or risk factors identified. Fall Risk Secondary diagnosis (15 points) impaired mobility at this time due to right leg pain . Total Oates Fall Scale indicates No Risk (0-24 pts). Assessment: 14:55 General: Appears comfortable, Behavior is calm, cooperative. Pain: Complains of pain in aa5 right calf Pain currently is 8 out of 10 on a pain scale. Quality of pain is described as aching, Pain began last night Is continuous. Neuro: Level of Consciousness is awake, alert, obeys commands, Oriented to person, place, time, situation. Cardiovascular: Pulses are 3+ in right posterior tibial artery Swelling noted to right lower extremity. Respiratory: Airway is patent Respiratory effort is even, unlabored, Respiratory pattern is regular, symmetrical. GI: No signs and/or symptoms were reported involving the gastrointestinal system. : No signs and/or symptoms were reported regarding the genitourinary system. EENT: No signs and/or symptoms were reported regarding the EENT system. Derm: Skin is pink, warm \\T\\ dry. Musculoskeletal: Pt states "I can't straighten my right leg out, I was just sitting down last night playing cards and when I tried to get up I couldn't straighten my leg". Pt denies fall. Pillow placed under right knee for support. 15:48 Reassessment: Patient is alert, oriented x 3, equal unlabored respirations, skin aa5 warm/dry/pink. Pt requesting pain medication at this time. notified. . 15:59 Reassessment: X-ray completed . aa5 17:00 Reassessment: Patient is alert, oriented x 3, equal unlabored respirations, skin aa5 warm/dry/pink. Patient states feeling better. 17:39 Reassessment: Patient is alert, oriented x 3, equal unlabored respirations, skin aa5 warm/dry/pink. Vital Signs: 14:46 BP 129 / 66; Pulse 71; Resp 18; Temp 97.6; Pulse Ox 96% on R/A; Weight 99.79 kg; Height la1 5 ft. 6 in. (167.64 cm); 16:00 BP 137 / 67; Pulse 60; Resp 20 S; Pulse Ox 95% on R/A; aa5 14:46 Body Mass Index 35.51 (99.79 kg, 167.64 cm) la1 ED Course: 14:41 Patient arrived in ED. as 14:42 Julio Stratton MD is Private Physician. as 14:45 Triage completed. la1 14:46 Arm band placed on left wrist. la1 14:52 Janene Lam, CHRISTOPHER is Primary Nurse. aa5 14:55 Patient has correct armband on for positive identification. Bed in low position. Call aa5 light in reach. Side rails up X2. Adult w/ patient. 15:00 Cory Silva MD is Attending Physician. gs 16:04 Knee Right 3 View XRAY In Process Unspecified. EDMS 16:42 Ultrasound completed. Patient tolerated well. sg3 16:44 US Extremity Venous Unilateral Ltd In Process Unspecified. EDMS 17:38 Speedy Caldera MD is Referral Physician. 17:39 No provider procedures requiring assistance completed. Patient did not have IV access aa5 during this emergency room visit. Administered Medications: 15:58 Drug: [place] 10 mg-325 mg 1 tabs Route: PO; aa5 17:00 Follow up: Response: No adverse reaction; Pain is decreased aa5 Outcome: 17:38 Discharge ordered by MD. gs 17:39 Discharged to home via wheelchair, with significant other. aa5 17:39 Condition: stable 17:39 Discharge instructions given to patient, Instructed on discharge instructions, follow up and referral plans. medication usage, Demonstrated understanding of instructions, follow-up care, medications, Prescriptions given X 1. 17:40 Patient left the ED. aa5 Signatures: Dispatcher [employer] EDMS Tarah Michael Audri, RN RN aa5 Winston Nassar RN RN la1 Cory Silva MD MD Mariela Rust sg3 Corrections: (The following items were deleted from the chart) 17:57 17:56 Patient left the ED. aa5 aa5
[2018-06-08 17:59] VITALS: TEMP 97.6
[2018-06-08 18:00] VITALS: BP 137/67; O2SAT 95
== END 2018-06-08 17:56 | disposition home or self-care (01) ==
LOC: ER 14:39
DX: M23.91 Unspecified internal derangement of right knee (principal); I10 Essential (primary) hypertension; F17.210 Nicotine dependence, cigarettes, uncomplicated; Z88.8 Allergy status to other drugs, medicaments and biological substances; Z85.46 Personal history of malignant neoplasm of prostate; Z91.048 Other nonmedicinal substance allergy status
CPT/HCPCS: 93971; 99283

== ENCOUNTER 2018-07-23 16:49 | Inpatient (IN) | payer OTHER ==
--- OUTSIDE RECORDS SUMMARY | 2018-07-23 17:18 | XMS REPORT | Clinical Summary ---
:1945 Author Organization [facility] Address [address] [place] [address] Care Team Providers Name Role Phone Julio [...] INFLUENZA VACCINE 01/06/2018 Implants Implanted Type Area Early Head Start Teacher Device Shelf Model / Identifier Expiration Serial / Date Lot Smart Control Stents-P Left: CORDIS 10/06/2016 [id number] / Implanted: Qty: 1 on 04/27/2014 by Gabriella Turpin MD eripherHuman Performance Integrated Systems Arterial Beautified / l [id number] Smart Control Stents-P Right: CORDOutracks Technologies 11/06/2014 [id number] / Implanted: Qty: 1 on 04/27/2014 by Gabriella Turpin MD eripherHuman Performance Integrated Systems Arterial Beautified / l [id number] Express Ld Iliac/Biliary Stents-P Right: [employer] 12/07/2016 [id number] / Implanted: Qty: 1 on 04/27/2014 by Gabriella Turpin MD erCole Martin Arterial SCIENTIFIC / l [id number] Lifestent Solo Vascular Stent BARD VASCULAR 12/22/2016 [id number] / Implanted: Qty: 1 on 05/12/2015 / [id number] Ovation Ix Abdominal Stent Graft N/A: Aorta TRIVASCULAR INC 06/06/2018 [id number] / Implanted: Qty: 1 on 09/13/2015 by Gabriella Turpin MD / [id number] Ovation Ix Iliac Stent Graft Left: Iliac TRIVASCULAR INC 07/31/2018 TV- [id number] / Implanted: Qty: 1 on 09/13/2015 by Gabriella Turpin MD / [id number] Ovation Ix Iliac Stent Graft Right: Iliac TRIVASCULAR INC 08/03/2018 TV [id number] / Implanted: Qty: 1 on 09/13/2015 by Gabriella Turpin MD / [id number] Results Not on fileafter 07/22/2017 Insurance Payer Benefit Plan / Group Subscriber ID Type Phone Address MEDICARE MEDICARE A B xxxxxxxxxx Medicare [facility] GENERIC MEDICARE xxxxxxxxxx Medigap SUPPLEMENT/INDIVIDUAL SUPPLEMENT Advance Directives For more information, please contact:[address] [phone] Code Status Date Activated Date Inactivated Comments [...]
[2018-07-23] MEDS ORDERED: ALBUTEROL 2.5 MG/3 ML NEB SOL IH PRN (17:35)
[2018-07-23 17:39] VITALS: BMI 33.7
[2018-07-23] MEDS ORDERED: NACHLORIDE 0.45% 1,000 ML IV SCH (18:00)
[2018-07-23] MEDS ORDERED: DIPHENHYDRAMINE 25 MG TAB/CAP PO PRN (18:00)
[2018-07-23] MEDS ORDERED: ONDANSETRON 4 MG (ODT) TAB PO PRN (18:00)
[2018-07-23] MEDS ORDERED: LOPERAMIDE HCL 2 MG CAPSULE PO PRN (18:00)
[2018-07-23] MEDS ORDERED: POLYETHYL GLY 3350 17 GM/DOSE PO PRN (18:00)
[2018-07-23] MEDS ORDERED: ONDANSETRON 4 MG/2 ML VIAL IV PRN (18:00)
[2018-07-23] MEDS ORDERED: ACETAMINOPHEN 325 MG TABLET PO PRN (18:00)
[2018-07-23] MEDS ORDERED: PNEUMOCOCCAL VACCINE 0.5 ML IMVAC ONE (18:00)
[2018-07-23] MEDS: ENOXAPARIN 40 MG/0.4 ML SQ SCH (18:17)
[2018-07-23 18:31] LABS: Absolute Lymphocytes (CBC) 0.8 K/uL (0.7-4.9); Absolute Monocytes 0.5 K/uL (0.1-1.3); Absolute Neutrophil 5.9 K/uL (1.8-8.0); Basophils % 0.7 % (0-1.3); Hematocrit 36.3 % (39.6-49.0); Lymphocytes % 11.5 % (15.3-44.8); MPV 9.6 fL (7.6-11.3); Monocytes % 6.9 % (3.3-12.3)
[2018-07-23 18:35] LABS: Protime INR 1.03
[2018-07-23 19:22] LABS: Albumin 3.2 g/dL (3.4-5.0); Bilirubin Direct 0.2 mg/dL (0-0.2); Bilirubin Total 0.5 mg/dL (0.2-1.0); Magnesium 2.1 mg/dL (1.8-2.4); Phosphorus 3.7 mg/dL (2.5-4.9); Potassium 4.3 mmol/L (3.5-5.1); Protein, Total 7.1 g/dL (6.4-8.2); Thyroid Stimulating Hormone 0.423 uIU/mL (0.360-3.740)
[2018-07-23] MEDS: ALBUTEROL 2.5 MG/3 ML NEB SOL IH SCH (20:45)
[2018-07-23] MEDS: IPRATROPIUM BROM 0.5MG/2.5ML IH SCH (20:45)
--- NOTE | 2018-07-23 20:58 | RAD REPORT ---
EXAM DESCRIPTION: CT - Abdomen Pelvis Wo Contrast - 07/23/2018 8:22 pm CLINICAL HISTORY: Abdominal pain COMPARISON: December 2017 TECHNIQUE: Computed axial tomography of the abdomen and pelvis was obtained. IV was not requested. O ral contrast was given. Coronal reconstructions performed. All CT scans are performed using dose optimization technique as appropriate and may include automated exposure control or mA/KV adjustment according to patient size. FINDINGS: The evaluation of solid organs and vessels is limited secondary to the lack of contrast a dministration. The liver, spleen, pancreas, and adrenals appear grossly normal. Bilateral renal cystic masses are unchanged. There is borderline dilatation of portions of the jejunum and proximal ileum. Distal ileum is normal caliber. There is no evidence of diverticulitis. Endovascular stent within the aorta and iliac arteries again demonstrated. Prostate gland mildly enlarged. Small inguinal hernias contain fat IMPRESSION: Borderline dilatation of jejunum and proximal ileum. I suspect this represents an enteri tis or ileus. Mild partial mechanical obstruction is considered less likely. If the patient's symptom s persist then a followup abdominal plain film series would be recommended
[2018-07-23] MEDS ORDERED: ALBUTEROL INHALER 60 PUFF/8 GM IH PRN (21:10)
--- NOTE | 2018-07-23 21:10 | RAD REPORT ---
EXAM DESCRIPTION: Luz Marina Bailey (2 Views)07/23/2018 8:33 pm CLINICAL HISTORY: Shortness of breath COMPARISON: N October 2017 FINDINGS: The lungs appear clear of acute infiltrate. The heart is borderline enlarged IMPRESSION: No acute abnormalities displayed
[2018-07-24] MEDS: NA CHLORIDE 0.9% 1,000 ML IV SCH ×4 (00:31→17:36)
[2018-07-24] MEDS: METRONIDAZOLE 500mg IVPB 500 MG/100 ML BAG IV SCH ×2 (00:32→11:49)
[2018-07-24] MEDS ORDERED: CEFOXITIN SODIUM 1 GM/VIAL IVPB SCH (01:00)
[2018-07-24] MEDS: ALBUTEROL 2.5 MG/3 ML NEB SOL IH SCH ×4 (01:39→20:00)
[2018-07-24] MEDS: IPRATROPIUM BROM 0.5MG/2.5ML IH SCH ×4 (01:39→20:00)
[2018-07-24] MEDS ORDERED: CEFOXITIN/SWI 1gm 1 GM/10 ML SYR ONE (02:37)
[2018-07-24 04:58] LABS: Absolute Lymphocytes (CBC) 0.9 K/uL (0.7-4.9); Absolute Monocytes 0.5 K/uL (0.1-1.3); Absolute Neutrophil 4.4 K/uL (1.8-8.0); Basophils % 0.4 % (0-1.3); Hematocrit 32.7 % (39.6-49.0); Lymphocytes % 15.1 % (15.3-44.8); MPV 9.7 fL (7.6-11.3); Monocytes % 8.1 % (3.3-12.3); RBC Red Blood Cell Count 3.36 M/uL (4.33-5.43)
--- NOTE | 2018-07-24 05:09 | EKG ---
Test Date: 2018-07-23 Test Time: 18:03:41 Law Office Manager: JUSTINE MEASUREMENT RESULTS: Intervals: Rate: 66 CT: 200 QRSD: 78 QT: 396 QTc: 415 [place]: P: 78 CT: 200 QRS: 65 T: 78 INTERPRETIVE STATEMENTS: Normal sinus rhythm Normal ECG Compared to ECG 12/18/2017 12:38:08 Sinus bradycardia no longer present Electronically Signed On 07-24-18 05:08:41 CDT by Hans Johnson
[2018-07-24] MEDS: PANTOPRAZOLE 40MG TABLET PO SCH (05:47)
[2018-07-24 06:49] LABS: CKMB Creatine Kinase MB 1.3 ng/mL (0.3-3.6); Potassium 4.2 mmol/L (3.5-5.1); Uric Acid 8.6 mg/dL (3.5-7.2)
[2018-07-24 08:37] LABS: Rheumatoid Factor NEG (NEG)
[2018-07-24] MEDS: CLOPIDOGREL 75 MG TABLET PO SCH (08:56)
[2018-07-24] MEDS: ASPIRIN 325 MG TAB PO SCH (08:56)
[2018-07-24] MEDS: DULOXETINE 20 MG CAP PO SCH (08:56)
[2018-07-24] MEDS: ALLOPURINOL 300 MG TAB PO SCH (08:56)
[2018-07-24] MEDS: ENOXAPARIN 40 MG/0.4 ML SQ SCH (08:56)
[2018-07-24] MEDS: METOPROLOL XL 100 MG TAB PO SCH (08:56)
[2018-07-24] MEDS: TAMSULOSIN 0.4 MG SR CAP PO SCH (08:57)
[2018-07-24] MEDS: HOME MED 1 EA UNK (Fluticasone/Umeclidin/Vilanter [Trelegy Ellipta 100-62.5-25] 1 EACH) IH SCH (08:57)
[2018-07-24] MEDS: HOME MED 1 EA UNK (Budesonide/Formoterol Fumarate [Symbicort 160-4.5 Mcg Inhaler] 1 PUFF) IH SCH (08:57)
[2018-07-24] MEDS ORDERED: PREGABALIN 75 MG CAP PO SCH (09:00)
[2018-07-24] MEDS ORDERED: FENOFIBRIC ACID 135 MG PO SCH (09:00)
[2018-07-24] MEDS ORDERED: CEFOXITIN/SWI 1gm 1 GM/10 ML SYR IV SCH (09:00)
[2018-07-24] MEDS ORDERED: ENOXAPARIN 40 MG/0.4 ML SQ SCH (09:00)
--- NOTE | 2018-07-24 12:19 | RAD REPORT ---
EXAM DESCRIPTION: RAD - Abdomen W Erect - 07/24/2018 11:38 am CLINICAL HISTORY: enteritis vs ileus Pain COMPARISON: Abdomen W Erect dated 11/05/2017; Abdomen Pelvis Wo Contrast dated 07/23/2018 FINDINGS: Nonspecific/ non organized distended large and small bowel loops are present. Oral contras t from prior CT is seen in the colon. The combination of findings favors an adynamic ileus. No convin cing evidence of SBO is present. No pneumoperitoneum.
[2018-07-24] MEDS ORDERED: NA CHLORIDE 0.9% 1,000 ML IV SCH (12:33)
--- NOTE | 2018-07-24 13:55 | RAD REPORT ---
EXAM DESCRIPTION: US - Renal Ultrasound-Complete - 07/24/2018 1:45 pm CLINICAL HISTORY: Acute kidney injury COMPARISON: CT imaging July 23 FINDINGS: The right kidney measures 11.4 x 7.2 x 7.4 cm. The left kidney measures 12.6 x 6.0 x 7.0 cm. Cortical thickness is normal. Increased cortical echogenicity is noted consistent with underlying medical renal disease. No hydronephrosis seen. Multiple bilateral renal cysts are present matching the CT study. Approximately 2.2 centimeter exophy tic cyst lower pole right kidney is believed to be the correlate to the isodense exophytic mass later al lower pole right kidney on the CT study. Right kidney shows 2 small homogeneous hyperechoic round masses. A definitive ultrasound correlate is not seen. High protein content cysts remain the favored diagnosis. Bladder is obscured. IMPRESSION: No hydronephrosis or suspicious mass. Increased echogenicity of the bilateral renal parenchyma consistent with medical renal disease. Bilateral renal cysts are present including a cyst lateral lower pole right kidney believed to be the correlate to the isodense exophytic mass on CT imaging. No other significant findings.
[2018-07-24 15:05] LABS: Urine Protein/Creatinine Ratio 0.38 ratio (<0.15)
[2018-07-24] MEDS: METOCLOPRAMIDE 10 MG/2mL INJ IV SCH (16:06)
--- NOTE | 2018-07-24 16:13 | CON ---
Date of Consultation: 07/23/2018 Reason: Possible bowel obstruction. History Of Present Illness: The patient is a 73-year-old gentleman, who presented to Dr. Stratton'laura off ice with abdominal pain, distention, and vomiting, who was admitted for bowel obstruction. Workup was begun and I was consulted. He states that he just had a bowel movement. He is passing gas. He has not thrown up since being in the hospital. Workup done and feels better. He is hungry, thirsty. N o pain at all currently. He did have some tightening of the abdomen yesterday. Review of Systems: No sore throat, runny nose, cough, headaches, or dizziness. No chest pain. No fever or chills. Rev iew of systems otherwise unremarkable. Past Medical History: Significant for hypertension, gout, prostate cancer, chronic kidney disease, c oronary artery disease. Past Surgical History: Stent placement in the iliac and coronary. Allergies: INCLUDE NIACIN, PAXIL, LIPITOR. Social History: The patient does drink. Denies smoking. Physical Examination: Vital Signs: Stable. He is afebrile. General: He is awake, alert, and oriented x3. Head and Neck: Cranial nerves 2 through 12 are grossly within normal limits. No neck masses. No JV D. Throat clear. Neck is supple. Chest: Clear. Heart: S1 and S2. Abdomen: Soft. Minimal distention. No rebound, rigidity, or guarding. No tenderness. No abdomina l wall hernia appreciated. Extremities: Adequately perfused. Nontender. Neuro: Nonfocal. Diagnostic Data: His CT of the abdomen and pelvis showed ileus versus enteritis with dilatation of t he jejunum and proximal ileum. No free air. No free fluid. There is borderline dilatation and ente ritis or ileus is suspected; obstruction is less likely. He has an endovascular stent within the aor ta and iliac arteries are visible. Laboratory Data: White count is normal; there is, however, left shift. H and H are 11 and 32. INR is 1.03. Chemistry showed BUN of 76, creatinine of 5.22 and last year his creatinine was slightly ab ove 2, GFR is 11. Assessment: A 73-year-old gentleman with enteritis or ileus, acute renal failure on chronic kidney d isease. Recommendation: No need for surgical intervention at this time. We will check an x-ray should that showed improvement in the ileus pattern at then we can start feeding the patient, clear liquids. We will await Renal Service evaluation. The patient may require dialysis, I am uncertain at this time. We will follow this patient while in the hospital and we will get him on empiric antibiotics for the time being. KLAUS/WILLIAM Voice ID: [id number] Report ID: [id number]
[2018-07-24] MEDS ORDERED: ERYTHROMYCIN 500 MG TAB PO SCH (17:00)
--- NOTE | 2018-07-24 17:08 | CON ---
Date of Consultation: 07/24/2018 Reason For Consult: EMIGDIO. Chief Complaint: The patient presented with abdominal distention. History Of Present Illness: A 73-year-old man with past medical history of COPD, coronary artery dis ease, peripheral vascular disease, active smoker, history of small bowel obstruction. The patient pr esented for abdominal distention, nausea and vomiting. The patient has a history of small bowel obst ruction in the past. Noticed to have abdominal distention, was trying to take milk of magnesia. The patient was able to have bowel movement, but then patient noticed worsening of abdominal distention, nausea and vomiting. The patient denied any NSAID intake as he has a history of a GI bleeding in past due to NSAID. No contrast exposure. No change in his medication. No chest pain, palpitation , change in his urinary pattern. History of present illness as above. Past Medical History: As in above. Family History: Noncontributory. Allergies: ALLERGIC TO NIACIN, PAROXETINE, LIPITOR Past Surgical History: Cardiac cath x2, right iliac and coronary stent. Medications: Albuterol, allopurinol, aspirin, cefoxitin, Plavix, Benadryl, duloxetine, Flagyl, gonzalez amide, sodium chloride, PPI, polyethylene glycol, Lyrica, Crestor, and Flomax. Physical Examination: Vital Signs: Temperature 97.3, pulse was 61, blood pressure 146/69. General: Awake, alert, oriented x3, in mild distress. Heart: Regular rate and rhythm. Normal S1, S2. Chest: Audible wheezes. No rales. Decreased air entry. Abdomen: Distended, soft. Bowel sounds positive. Extremities: No edema. Laboratory Data: White count 5.7, hemoglobin 11.3, platelet 199. Sodium 139, potassium 4.2. Creati nine 5.2 and GFR of 11. Uric acid 8.6. Assessment And Plan: 1.Acute kidney injury on chronic kidney disease, most related to dehydration from vomiting. We will start gently on IV fluid. We will hold BAILEY. Urine, no protein or blood. We will send for renal ul trasound. We will check for CPK. Uric acid was 8.6, hemoglobin 11.3. Follow up serology workup. W e will send for ultrasound today. 2.Hypertension. Blood pressure is controlled.. 3.Hyperlipidemia. We will DC fenofibrate. Continue on statin. 4.Coronary artery disease, on aspirin and Plavix. 5.Peripheral vascular disease with neuropathy. We will adjust the Lyrica dose as per renal function . 6.Chronic obstructive pulmonary disease. Continue inhalers. Audible wheezes. Last chest x-ray, no effusion. Repeat chest x-ray by tomorrow. 7.Abdominal distention. Abdominal CT was negative for obstruction. Follow up per the primary. ELSA/WILLIAM Voice ID: [id number] Report ID: [id number]
[2018-07-24] MEDS: ROSUVASTATIN 10 MG TAB PO SCH (21:11)
--- NOTE | 2018-07-24 21:42 | P.PN ---
Subjective Date of Service: 07/24/18 Chief Complaint: NAUSEA AND VOMITING Subjective: Improving HE IS HUNGRY. HE HAD TWO LIGHT BM TODAY AND SAYS THE SECOND ONE HAD PARTICLES IN IT. HE HAS NO MORE VOMITING. Review of Systems 10-point ROS is otherwise unremarkable General: Weakness, Malaise Gastrointestinal: Distention (MILD) Physical Examination - Vital Signs Temperature: 98.6 F Blood Pressure: 101/67 Pulse: 60 Respirations: 16 Pulse Ox (%): 91 - Physical Exam General: Alert, Mild distress, Obese HEENT: Atraumatic, PERRLA, EOMI Neck: Supple, JVD not distended Respiratory: Clear to auscultation bilaterally, Normal air movement Cardiovascular: Regular rate/rhythm, Normal S1 S2 Gastrointestinal: Normal bowel sounds, No tenderness Musculoskeletal: No tenderness Integumentary: No rashes Neurological: Normal speech, Normal tone, Normal affect Lymphatics: No axilla or inguinal lymphadenopathy - Studies Laboratory Data (last 24 hrs) 07/24/18 05:00: Uric Acid Cancelled 07/24/18 04:33: Sodium 139, Potassium 4.2, BUN 76 H, Creatinine 5.22 H*, Glucose 86, Uric Acid 8.6 H, Magnesium 2.0 07/24/18 04:33: WBC 5.7 D, Hgb 11.3 L, Hct 32.7 L, Plt Count 199 Medications List Reviewed: Yes Assessment And Plan - Current Problems (Diagnosis) (1) Paralytic ileus Current Visit: Yes Status: Acute Plan: HE REFUSES TO INSERT NGT. HE HAD BMS TODAY. TRY LIQUID DIET. DAILY X RAY. REGLAN IV TO HELP ILEUS. PER DR HODGE HE DOES NOT HAVE BLOCKAGE. (2) Acute on chronic renal failure Current Visit: Yes Status: Acute Plan: HE IS PRERENAL ON THE TOP OF CKD HE HAS. IV IS HELPING BRING DOWN CREAT. Qualifiers: Acute renal failure type: unspecified (3) CAD (coronary artery disease) Onset Date: 11/04/17 Current Visit: No Status: Chronic Plan: STABLEFOR NOW. RESUME PLAVIX LOVENOX SC. (4) COPD (chronic obstructive pulmonary disease) Onset Date: 11/04/17 Current Visit: No Status: Chronic Plan: NEBULIZER WHEEZES TODAY. IV STEROIDS FOR A DAY. Qualifiers: COPD type: emphysema
[2018-07-25] MEDS: METOCLOPRAMIDE 10 MG/2mL INJ IV SCH ×3 (00:46→17:33)
[2018-07-25] MEDS: DEXAMETHASONE 10 MG/ML VIAL IV SCH ×4 (00:46→18:00)
[2018-07-25] MEDS: IPRATROPIUM BROM 0.5MG/2.5ML IH SCH ×4 (02:00→20:00)
[2018-07-25] MEDS: ALBUTEROL 2.5 MG/3 ML NEB SOL IH SCH ×4 (02:00→20:00)
[2018-07-25] MEDS: NA CHLORIDE 0.9% 1,000 ML IV SCH ×2 (04:18→11:39)
[2018-07-25] MEDS: PANTOPRAZOLE 40MG TABLET PO SCH (05:56)
[2018-07-25 06:15] LABS: Absolute Lymphocytes (CBC) 0.4 K/uL (0.7-4.9); Absolute Monocytes 0.1 K/uL (0.1-1.3); Absolute Neutrophil 3.3 K/uL (1.8-8.0); Basophils % 0.5 % (0-1.3); Hematocrit 33.6 % (39.6-49.0); Monocytes % 3.7 % (3.3-12.3); RBC Red Blood Cell Count 3.41 M/uL (4.33-5.43)
[2018-07-25 06:30] LABS: Magnesium 2.1 mg/dL (1.8-2.4); Potassium 4.7 mmol/L (3.5-5.1)
[2018-07-25] MEDS: HOME MED 1 EA UNK (Budesonide/Formoterol Fumarate [Symbicort 160-4.5 Mcg Inhaler] 1 PUFF) IH SCH (09:00)
[2018-07-25] MEDS: HOME MED 1 EA UNK (Fluticasone/Umeclidin/Vilanter [Trelegy Ellipta 100-62.5-25] 1 EACH) IH SCH (09:00)
[2018-07-25] MEDS: ENOXAPARIN 40 MG/0.4 ML SQ SCH (09:00)
--- NOTE | 2018-07-25 09:37 | P.PN ---
Subjective Date of Service: 07/25/18 Chief Complaint: NAUSEA AND VOMITING Subjective: Improving HE IS HUNGRY. HE HAD TWO LIGHT BM TODAY AND SAYS THE SECOND ONE HAD PARTICLES IN IT. HE HAS NO MORE VOMITING. NOT WHEEZING MUCH TODAY. FEELS BETTER. HAD HEMATURIA AND HEMORROIDES ALSO BLED. HE HAS BEEN TO DR. SHIPMAN BEFORE. Review of Systems 10-point ROS is otherwise unremarkable Physical Examination - Vital Signs Temperature: 97.5 F Blood Pressure: 117/54 Pulse: 59 Respirations: 20 Pulse Ox (%): 92 - Physical Exam General: Alert, Mild distress, Obese HEENT: Atraumatic, PERRLA, EOMI Neck: Supple, JVD not distended Respiratory: Diminished, Rhonchi/gurgles Cardiovascular: Regular rate/rhythm, Normal S1 S2 Gastrointestinal: Normal bowel sounds, No tenderness Musculoskeletal: No tenderness Integumentary: No rashes Neurological: Normal speech, Normal tone, Normal affect Lymphatics: No axilla or inguinal lymphadenopathy - Studies Laboratory Data (last 24 hrs) 07/25/18 05:39: Sodium 140, Potassium 4.7, BUN 69 H, Creatinine 3.61 H D, Glucose 140 H, Magnesium 2.1 07/25/18 05:39: WBC 3.9 L D, Hgb 11.1 L, Hct 33.6 L, Plt Count 202 Medications List Reviewed: Yes Assessment And Plan - Current Problems (Diagnosis) (1) Paralytic ileus Current Visit: Yes Status: Acute Plan: HE REFUSES TO INSERT NGT. HE HAD BMS TODAY. TRY LIQUID DIET. DAILY X RAY. REGLAN IV TO HELP ILEUS. PER DR HODGE HE DOES NOT HAVE BLOCKAGE. WILL REDO X RAY. HE IS TOLERATING LIQUIDS BUT WANTS BURGER. (2) Acute on chronic renal failure Current Visit: Yes Status: Acute Plan: HE IS PRERENAL ON THE TOP OF CKD HE HAS. IV IS HELPING BRING DOWN CREAT. CREAT IS DOWN TO 3.6. Qualifiers: Acute renal failure type: unspecified (3) CAD (coronary artery disease) Onset Date: 11/04/17 Current Visit: No Status: Chronic Plan: STABLEFOR NOW. RESUME PLAVIX LOVENOX SC. (4) COPD (chronic obstructive pulmonary disease) Onset Date: 11/04/17 Current Visit: No Status: Chronic Plan: NEBULIZER WHEEZES TODAY. IV STEROIDS FOR A DAY. Qualifiers: COPD type: emphysema (5) Hematuria Current Visit: Yes Status: Acute Plan: HE HAS BEEN TO [facility] AND WILL JOSEL[facility]O. HE MAY HAVE UTI. WILL START ABX FOR IT. Qualifiers: Hematuria type: gross Qualified Code(s): R31.0 - Gross hematuria (6) Bleeding external hemorrhoids Current Visit: Yes Status: Acute Plan: SEE SURGEON DR HODGE. HE HAS BEEN TO SEE HIM.
[2018-07-25] MEDS: ALLOPURINOL 300 MG TAB PO SCH (09:38)
[2018-07-25] MEDS: CLOPIDOGREL 75 MG TABLET PO SCH (09:38)
[2018-07-25] MEDS: PREGABALIN 50 MG CAP PO SCH (09:38)
[2018-07-25] MEDS: DULOXETINE 20 MG CAP PO SCH (09:39)
[2018-07-25] MEDS: METOPROLOL XL 100 MG TAB PO SCH (09:39)
[2018-07-25] MEDS: TAMSULOSIN 0.4 MG SR CAP PO SCH (09:39)
[2018-07-25] MEDS: ASPIRIN 325 MG TAB PO SCH (09:39)
--- NOTE | 2018-07-25 10:37 | RAD REPORT ---
EXAM DESCRIPTION: RAD - Abdomen W Erect - 07/25/2018 10:14 am CLINICAL HISTORY: Abdominal pain FINDINGS: Free air is not seen beneath the diaphragm. A few loops of mildly dilated small bowel appear less prominent than on the prior exam. This probably represents an enteritis or ileus. Stomach is mildly distended.
--- NOTE | 2018-07-25 18:40 | PN ---
Date of Progress Note: 07/25/2018 Subjective: The patient is awake, alert, tolerating diet. Complaining of blood in his urine. Objective: Vital Signs: Stable. He is afebrile. Abdomen: Soft, nondistended, nontender. Positive bowel sounds. Laboratory Data: Reviewed. His creatinine is getting much better. Assessment: 1.Renal insufficiency, improving with hydration, small bowel obstruction, I doubt. The patient is c linically improving. The patient can be advanced to a full liquid diet. 2.Hematuria. The patient will need to be evaluated by Urology Service. No need for surgical interv ention at this time. /MODL Voice ID: [id number] Report ID: [id number]
[2018-07-25] MEDS: ROSUVASTATIN 10 MG TAB PO SCH (20:29)
[2018-07-26] MEDS: METOCLOPRAMIDE 10 MG/2mL INJ IV SCH ×2 (00:54→08:14)
[2018-07-26] MEDS: DEXAMETHASONE 10 MG/ML VIAL IV SCH ×2 (00:54→06:33)
[2018-07-26] MEDS: ALBUTEROL 2.5 MG/3 ML NEB SOL IH SCH ×2 (02:00→07:38)
[2018-07-26] MEDS: IPRATROPIUM BROM 0.5MG/2.5ML IH SCH ×2 (02:00→07:38)
[2018-07-26] MEDS: NA CHLORIDE 0.9% 1,000 ML IV SCH ×2 (03:46→08:54)
[2018-07-26 06:25] LABS: Absolute Lymphocytes (CBC) 0.4 K/uL (0.7-4.9); Absolute Monocytes 0.2 K/uL (0.1-1.3); Absolute Neutrophil 3.9 K/uL (1.8-8.0); Basophils % 0.2 % (0-1.3); Hematocrit 31.1 % (39.6-49.0); Lymphocytes % 9.9 % (15.3-44.8); MPV 10.4 fL (7.6-11.3); Monocytes % 3.7 % (3.3-12.3); RBC Red Blood Cell Count 3.17 M/uL (4.33-5.43)
[2018-07-26] MEDS: PANTOPRAZOLE 40MG TABLET PO SCH (06:33)
[2018-07-26 06:45] LABS: Magnesium 1.8 mg/dL (1.8-2.4); Potassium 4.8 mmol/L (3.5-5.1)
[2018-07-26] MEDS: HOME MED 1 EA UNK (Fluticasone/Umeclidin/Vilanter [Trelegy Ellipta 100-62.5-25] 1 EACH) IH SCH (07:59)
[2018-07-26] MEDS: HOME MED 1 EA UNK (Budesonide/Formoterol Fumarate [Symbicort 160-4.5 Mcg Inhaler] 1 PUFF) IH SCH (07:59)
[2018-07-26] MEDS: ASPIRIN 325 MG TAB PO SCH (08:14)
[2018-07-26] MEDS: CLOPIDOGREL 75 MG TABLET PO SCH (08:14)
[2018-07-26] MEDS: DULOXETINE 20 MG CAP PO SCH (08:14)
[2018-07-26] MEDS: TAMSULOSIN 0.4 MG SR CAP PO SCH (08:14)
[2018-07-26] MEDS: ALLOPURINOL 300 MG TAB PO SCH (08:14)
[2018-07-26] MEDS: PREGABALIN 50 MG CAP PO SCH (08:14)
[2018-07-26] MEDS: METOPROLOL XL 100 MG TAB PO SCH (08:14)
[2018-07-26 08:38] LABS: Blood Morphology Comment NOT SEEN (NOT SEEN); Platelet Estimate ADEQ
[2018-07-26] MEDS ORDERED: MAGNESIUM SULFATE 1 gm IVPB 1 GM/100 ML BAG IV ONE (09:00)
[2018-07-26 09:16] VITALS: O2SAT 95
--- NOTE | 2018-07-26 11:08 | P.DS ---
Admission Date: 07/23/18 Discharge Date: 07/26/18 Disposition: ROUTINE DISCHARGE Discharge Condition: FAIR Reason for Admission: NAUSEA AND VOMITING - Problems (1) Paralytic ileus Current Visit: Yes Status: Acute (2) Acute on chronic renal failure Current Visit: Yes Status: Acute Qualifiers: Acute renal failure type: unspecified (3) CAD (coronary artery disease) Onset Date: 11/04/17 Current Visit: No Status: Chronic (4) COPD (chronic obstructive pulmonary disease) Onset Date: 11/04/17 Current Visit: No Status: Chronic Qualifiers: COPD type: emphysema (5) Hematuria Current Visit: Yes Status: Acute Qualifiers: Hematuria type: gross Qualified Code(s): R31.0 - Gross hematuria (6) Bleeding external hemorrhoids Current Visit: Yes Status: Acute Hospital Course: MR ONEILL HAD ILEUS VS. MILD OBST THIS ADMISSION. HE RECOVERED WITH NGT. HE HAD HEMAURIA AND HEMORROID BLEED ALSO. BOTH HAVE IMPROVED. HE WILL FU WITH DR. JACKSON IF NEED. HE IS ABLE TO TOLERATE LIQUIDS, VERY EAGER TO GO HOME. HE WILL CONTINUE LIQUIDS AND GRADUALLY GO TO SOFT DIET. I HAVE ADVISED HIM TO AVOID ROUGH, HARD DIET. HE SHOULD HAVE VEGETABLE IN PUREE FORM BLENDING IT. Vital Signs/Physical Exam: Temp Pulse Resp BP Pulse Ox 97.6 F 60 20 131/59 L 95 07/26/18 07:36 07/26/18 08:14 07/26/18 07:36 07/26/18 08:14 07/26/18 07:36 Laboratory Data at Discharge: WBC 4.5 K/uL (4.3-10.9) D 07/26/18 05:27 Hgb 10.3 g/dL (13.6-17.9) L 07/26/18 05:27 Hct 31.1 % (39.6-49.0) L 07/26/18 05:27 Plt Count 181 K/uL (152-406) 07/26/18 05:27 PT 12.1 SECONDS (9.5-12.5) 07/23/18 17:58 INR 1.03 07/23/18 17:58 APTT 21.0 SECONDS (24.3-36.9) L 07/23/18 17:58 Sodium 141 mmol/L (136-145) 07/26/18 05:27 Potassium 4.8 mmol/L (3.5-5.1) 07/26/18 05:27 BUN 59 mg/dL (7-18) H 07/26/18 05:27 Creatinine 2.79 mg/dL (0.55-1.3) H 07/26/18 05:27 Glucose 133 mg/dL (74-106) H 07/26/18 05:27 Uric Acid Cancelled 07/24/18 05:00 Phosphorus 3.7 mg/dL (2.5-4.9) 07/23/18 17:58 Magnesium 1.8 mg/dL (1.8-2.4) 07/26/18 05:27 Total Bilirubin 0.5 mg/dL (0.2-1.0) 07/23/18 17:58 AST 18 U/L (15-37) 07/23/18 17:58 ALT 14 U/L (12-78) 07/23/18 17:58 Alkaline Phosphatase 52 U/L (45-117) 07/23/18 17:58 Home Medications: Fenofibric Acid (Choline) [Trilipix] 135 mg PO DAILY 09/12/11 Clopidogrel Bisulfate [Plavix*] 75 mg PO DAILY 06/30/12 Tamsulosin [Flomax*] 0.4 mg PO DAILY 06/30/12 Allopurinol 300 mg PO DAILY 11/30/13 Pantoprazole Sodium [Protonix] 1 tab PO DAILY 12/02/13 Aspirin 325 mg PO DAILY 11/03/17 Metoprolol Succinate [Toprol Xl] 100 mg PO DAILY 11/03/17 Rosuvastatin [Crestor*] 20 mg PO BEDTIME 11/03/17 Albuterol Inhaler [Ventolin Inhaler*] 2 puff IH Q6H PRN 07/23/18 Budesonide/Formoterol Fumarate [Symbicort 160-4.5 Mcg Inhaler] 1 puff IH DAILY 07/23/18 Duloxetine [Cymbalta *] 40 mg PO DAILY 07/23/18 Fluticasone/Umeclidin/Vilanter [Trelegy Ellipta 100-62.5-25] 1 each IH DAILY Pregabalin [Lyrica*] 150 mg PO DAILY 07/23/18 Patient Discharge Instructions: See Dr. Jackson for blood in urine. See your GI doctor for follow up if hemorroides continue to bleed. My office in 10 days. Diet: AHA Activity: Ad arnaldo Followup: Keily Jackson MD [ACTIVE - CAN ADMIT] - Julio Stratton MD [Primary Care Provider] - 08/05/18 (see dr. stratton in 10 days)
[2018-07-26 11:30] VITALS: BP 157/73; TEMP 97.3
[2018-07-28 20:30] LABS: Albumin, (SPE) 2.9 g/dL (3.8-4.8); Alpha-1-Globulins 0.4 g/dL (0.2-0.3); Alpha-2-Globulins 0.7 g/dL (0.5-0.9); Gamma Globulins 1.1 g/dL (0.8-1.7); INTERPRETATION REPORT
[2018-07-29 19:28] LABS: P-ANCA Anti-Myeloperoxidase Ab <1.0 AI (<1.0)
[2018-07-30 02:28] LABS: HBsAG Nonreactive (Nonreactive)
[2018-07-31 16:19] LABS: HIV AG/AB 4TH GEN Non-reactive (Non-reactive)
== END 2018-07-26 11:58 | disposition home or self-care (01) | DRG 389 ==
LOC: 4TH 17:06
PROVIDERS: ADMIT Internal Medicine; ATTEND Internal Medicine
DX: K56.7 Ileus, unspecified (principal); N17.9 Acute kidney failure, unspecified; I12.9 Hypertensive chronic kidney disease with stage 1 through stage 4 chronic kidney disease, or unspecified chronic kidney disease; N18.2 Chronic kidney disease, stage 2 (mild); I73.9 Peripheral vascular disease, unspecified; I25.10 Atherosclerotic heart disease of native coronary artery without angina pectoris; E86.0 Dehydration; G62.9 Polyneuropathy, unspecified; J43.9 Emphysema, unspecified; R31.0 Gross hematuria; K64.4 Residual hemorrhoidal skin tags; Z23 Encounter for immunization; Z79.02 Long term (current) use of antithrombotics/antiplatelets; Z79.51 Long term (current) use of inhaled steroids; Z79.82 Long term (current) use of aspirin; Z95.5 Presence of coronary angioplasty implant and graft; Z95.820 Peripheral vascular angioplasty status with implants and grafts
CPT/HCPCS: 36415; 71046; 74019; 74176; 76770; 80048; 80076; 82306; 82550; 82553; 82570; 82607; 83520; 83735; 84100; 84156; 84165; 84443; 84550; 85025; 85610; 85730; 86021; 86038; 86160; 86334; 86430; 86803; 87045; 87046; 87070; 87077; 87086; 87088; 87186; 87205; 87340; 87389; 93005; 94640; J0694; J1100; J1650; J2765; J3475; J7030

== ENCOUNTER 2019-02-20 10:35 | Emergency (ER) | payer OTHER ==
--- OUTSIDE RECORDS SUMMARY | 2019-02-20 10:37 | XMS REPORT ---
:1945 [facility] [address] [place] [address] Care Team Providers Name Role Phone Unavailable Unavailable Unavailable Problems This patient has no known problems. Allergies, Adverse Reactions, Alerts This patient has no known allergies or adverse reactions. Medications This patient has no known medications. Results Test Description Test Time Test Comments Text Results Atomic Results Result Comments CT, ABDOMEN 2018-10-22 12:20:00 Addendum BeginsREPORT STATUS:A Addendum: I have reviewed the nonvascular features of this examination concur with Dr. Stewart's report. There is been interval growth in the size of the largest cyst in the left kidney from 5.7 to 8.1 cm. The other renal lesions are unchanged in size and configuration. Signed: Pedro Mcnamara MDReport Verified Date/Time: 10/22/2018 12:20:45 Reading Location: [place] [address] Angio Body Reading RoomAddendum EndsFINAL REPORT CT of the abdomen and pelvis, without contrast, Oct 24 INDICATION: This is a 73 year old male with history of abdominal aortic aneurysm status post endovascular exclusion. Patient presents for followup evaluation. TECHNIQUE: Spiral acquisition was performed with mild intravenous contrast administration using a GE multidetector scanner. Multi-planar 3-D volume-rendering reconstruction was performed using an independent workstation. This exam was performed according to our departmental dose-optimisation programme, which includes automated exposure control, adjustment of the mA and/or kV according to patient size and/or use of iterative reconstruction technique. Dose modulation, iterative reconstruction, and/or weight based adjustment of the mA/kV was utilized to reduce the radiation dose to as low as reasonably achievable. FINDINGS: VASCULAR: Coronary artery calcification is seen in the distal RCA. Once again of note, endostent is present, commences above the takeoff of the coeliac axis, and the iliac limbs terminates in the left and the right external iliac arteries. No interval change in position is identified. Assessment is incomplete without contrast administration. Presence or absence of endostent cannot be commented upon. Assessment of the mesenteric, renal, and pelvic arteries are limited. No difference to prior examination, eccentric calcific lesion is seen in the left common femoral artery, at image 363. Quantitative dimensions of the abdominal aorta are as follows: 2.8 cm at the mesenteric segment; 2.7 cm at the renal segment; 3.5 x 3.6 cm at the mid infrarenal level; and 4.6 x 4.1 cm at distal in the renal level, and 2.4 x 2 point cm at the aortic bifurcation. Maximum diameter in the distal infrarenal abdominal aorta was 4.2 x 3.8 cm, in 2017, on remeasurement. The aortic volume measurement in inferior to the right renal artery down to the aortic bifurcation is 124 cc. In 2017, it measure 114 cc. NON-VASCULAR: The lung bases are unremarkable. No pleural effusion is identified. Calcified granuloma is identified in the left lung. Calcification is seen at the diaphragmatic surface in the left and the right. Prior addendum by the [employer] Tender Radiologist, the calcification could be related to asbestos exposure in the past. In the noncontrast data set, the liver and spleen appears unremarkable. The liver edge is smooth. Patient is post cholecystectomy. The pancreas appears unremarkable. Tiny focal calcification is seen near the head of the pancreas at image 139, no difference to prior examination. The adrenal glands are not enlarged. In the noncontrast data, no obvious acute renal pathology is seen. No hydronephrosis or perirenal fluid collection is identified. Once again of note, multiple hypodensities are seen in the kidneys, too many to described. Most of them are simple in nature. The largest one is in the upper pole of the left kidney, at image 95, that measures 7.9 x 6.6 cm in diameter. There are also small hyperdense cysts identified. Tissue characterization is incomplete with out contrast administration. However, by visual estimation, no interval change is seen when compared to prior examination. Renal vascular calcification is identified in both renal pelvis. There is likely some nonspecific stranding present adjacent to both kidneys, no difference to prior examination. Bowel is not well assessed by CT angiography as enteric contrast is not given. No obvious bowel dilation identified. Scattered colonic diverticular disease is seen. Small bilateral fat-containing inguinal hernia is seen. No free air or free fluid seen abdomen and pelvis. There is no significant retroperitoneal adenopathy. Small lymph is are seen in both groins, a nonspecific finding. The prostate gland is mildly prominent. The bladder appears unremarkable. Once again of note, surgical clips are seen in the right groin. No acute bony pathology is seen. Tiny sclerotic foci are identified in the right and left femoral likely represent bone islands, stable when compared to prior examination. CONCLUSIONS: 1. Patient is post endostent placement in the abdominal aorta. It appears to be well positioned. Assessment is incomplete without contrast administration. Quantitative dimensions as described above. The aortic volume measurement in inferior to the right renal artery down to the aortic bifurcation is 124 cc. In 2017, it measure 114 cc, remeasured. There is some mild increased in both diameter and volume on remeasurement, when compared to prior examination. 2. Other findings as described above; assessment is limited without contrast administration. 3. An addendum will be dictated regarding the non-vascular findings by the [employer] Tender Radiologists. Signed: Fausto Stewart MDReport Verified Date/Time: 10/22/2018 10:10:53 Reading Location: [place] [address] Cardiology MRI
[2019-02-20 14:12] LABS: Urine Appearance CLOUDY; Urine Color RED
[2019-02-20 14:13] LABS: Urine Bilirubin NEGATIVE (NEG); Urine Blood 3+ (NEG); Urine Glucose NEGATIVE (NEG); Urine Microscopic Reflex ORDER UMIC; Urine Protein 2+ (NEG); Urine Specific Gravity 1.015 (1.005-1.030); Urine Urobilinogen 0.2 mg/dL (0.2-1.0)
[2019-02-20 14:14] LABS: Urine Bacteria <20 /HPF (NONE SEEN); Urine Culture Reflex Order REFLEXED; Urine RBC TNTC /HPF (NONE SEEN)
--- NOTE | 2019-02-20 14:39 | RAD REPORT ---
EXAM DESCRIPTION: CT - Stone Protocol - 02/20/2019 2:27 pm CLINICAL HISTORY: Flank pain. HEMATURIA COMPARISON: Abdomen Pelvis Wo Contrast dated 07/23/2018; Renal Ultrasound-Complete dated 07/24/2018; Abdomen W Erect dated 07/25/2018; Stone Protocol dated 12/18/2017 TECHNIQUE: Axial images were obtained without oral or IV contrast. Lack of contrast limits solid org an and vascular assessment. The [id number] spans the entirety of the system partially obscuring uppermost abdomen and lung bases. Coronal reformatted images were obtained and reviewed. All CT scans are performed using dose optimization technique as appropriate and may include automated exposure control or mA/KV adjustment according to patient size. FINDINGS: The lower lung rothman are clear. Cholecystectomy clips. Imaged portions of the liver and spleen show no suspicious findings on non-contrast imaging. The panc reas and adrenal glands are normal. No pathologic lymphadenopathy in the abdomen or pelvis. Multiple varying size cysts are present involving both kidneys. Several of the cysts demonstrate hype rdense characteristics. The largest cyst emanates from the superior pole of the left kidney measuring 8.8 cm. No renal calculus or hydronephrosis seen. No bowel obstruction, free air, free fluid or abscess. Aortic endograft is place.Sigmoid diverticulos is is present without diverticulitis. Normal appendix seen. Prostate gland mildly projects into the bladder base. IMPRESSION: Multiple bilateral hypodense and hyperdense renal cysts are present. No urinary tract stone or obstructive uropathy is seen.
[2019-02-20 14:45] LABS: Absolute Lymphocytes (CBC) 0.9 K/uL (0.7-4.9); Basophils % 0.4 % (0-1.3); Hematocrit 36.2 % (39.6-49.0); Lymphocytes % 14.2 % (15.3-44.8); MPV 10.2 fL (7.6-11.3); RBC Red Blood Cell Count 3.68 M/uL (4.33-5.43)
[2019-02-20 14:52] LABS: Potassium 4.9 mmol/L (3.5-5.1)
--- NOTE | 2019-02-20 16:04 | ER ---
Nurse's Notes [facility] Name: Enrrique Vaughn Age: 73 yrs Sex: Male : 1945 Arrival Date: 02/20/2019 Time: 10:37 Bed 13 Private MD: Keily Jackson A; Julio Stratton V Diagnosis: Hematuria, unspecified Presentation: 02/20 10:52 Presenting complaint: Patient states: i came in for blood in the urine, Dr. Jackson sent tw2 me over here, i was in his office, he sent me over here to be worked up. Transition of care: patient was not received from another setting of care. Onset of symptoms was February 20, 2019. Risk Assessment: Do you want to hurt yourself or someone else? Patient reports no desire to harm self or others. Initial Sepsis Screen: Does the patient meet any 2 criteria? No. Patient's initial sepsis screen is negative. Does the patient have a suspected source of infection? No. Patient's initial sepsis screen is negative. Care prior to arrival: None. 10:52 Method Of Arrival: Wheelchair tw2 10:52 Acuity: SAMANTHA 3 tw2 10:54 Presenting complaint: Patient states: just last night with blood in my urine and clots, tw2 it was a considerable amount of blood. Triage Assessment: 10:54 General: Appears in no apparent distress. Behavior is calm, cooperative, appropriate tw2 for age. Pain: Denies pain. : Reports blood in urine. Historical: - Allergies: 10:59 Lipitor; tw2 10:59 Niaspan; tw2 10:59 Paxil; tw2 10:59 Tape; tw2 10:59 atorvastatin calcium; tw2 10:59 niacin; tw2 - Home Meds: 10:59 allopurinol 300 mg Oral tab 1 tab once daily [Active]; aspirin 325 mg Oral tab 1 tab tw2 once daily [Active]; Avodart 0.5 mg Oral cap 1 cap once daily [Active]; Crestor 20 mg Oral tab 1 tab once daily [Active]; Cymbalta 30 mg oral cpDR [Active]; Flomax 0.4 mg Oral cp24 1 cap once daily [Active]; Lyrica 150 mg Oral 1 cap nightly [Active]; metoprolol tartrate 100 mg Oral tab 1 tab once daily [Active]; Plavix 75 mg Oral tab 1 tab once daily (Last Dose: 02/16/2019 08:00) [Active]; Protonix 40 mg Oral TbEC 1 tab once daily [Active]; Trilipix 135 mg Oral cpDR 1 cap once daily [Active]; Vitamin C 1,000 mg Oral tab daily [Active]; Trelegy 100 mcg INH, daily [Active]; glucosamine-chondroitin 750 mg-100 mg- 125 mg-1.65 mg oral tab [Active]; tramadol 50 mg Oral tab 1 tab every 4 hours [Active]; Brovana 15 mcg/2 mL inhalation nebu 2 mL 2 times per day [Active]; - PMHx: 10:59 COPD; Hypertension; Prostate Cancer; tw2 - Immunization history:: Adult Immunizations. - Social history:: Smoking status: . - Ebola Screening: : Patient denies travel to an Ebola-affected area in the 21 days before illness onset. Screenin:21 Abuse screen: Denies threats or abuse. Denies injuries from another. Nutritional ca1 screening: No deficits noted. Tuberculosis screening: No symptoms or risk factors identified. Fall Risk IV access (20 points). Ambulatory Aid- Crutches/Cane/Walker (15 pts). Total Oates Fall Scale indicates Low Risk Score (25-44 pts). Fall prevention measures have been instituted. Side Rails Up X 2 Family Present and informed to notify staff if they need to leave bedside. Assessment: 14:21 General: Appears in no apparent distress. comfortable, Behavior is calm, cooperative, ca1 appropriate for age. Pain: Denies pain. Neuro: Level of Consciousness is awake, alert, obeys commands, Oriented to person, place, time, situation. Cardiovascular: Heart tones S1 S2 present Capillary refill < 3 seconds Patient's skin is warm and dry. Respiratory: Airway is patent Respiratory effort is even, unlabored, Respiratory pattern is regular, symmetrical, Breath sounds are clear bilaterally. GI: Abdomen is round non-distended, Bowel sounds present X 4 quads. Abd is soft and non tender X 4 quads. : Reports bloody urine since last night. EENT: No deficits noted. No signs and/or symptoms were reported regarding the EENT system. Derm: Skin is intact, is healthy with good turgor, Skin is pink, warm \T\ dry. Musculoskeletal: Circulation, motion, and sensation intact. Capillary refill < 3 seconds, Range of motion: intact in all extremities. 15:30 Reassessment: Patient appears in no apparent distress at this time. Patient and/or ca1 family updated on plan of care and expected duration. Pain level reassessed. Patient is alert, oriented x 3, equal unlabored respirations, skin warm/dry/pink. 16:21 Reassessment: Patient appears in no apparent distress at this time. Patient is alert, ca1 oriented x 3, equal unlabored respirations, skin warm/dry/pink. Vital Signs: 10:54 BP 120 / 75; Pulse 65; Resp 18; Temp 98.5(O); Pulse Ox 97% on R/A; Weight 90.72 kg (R); tw2 Height 5 ft. 6 in. (167.64 cm); Pain 0/10; 14:37 BP 179 / 83; Pulse 62; Resp 17 S; Pulse Ox 97% on R/A; ca1 15:30 BP 152 / 70; Pulse 66; Resp 17 S; Pulse Ox 96% on R/A; ca1 16:21 BP 156 / 56; Pulse 58; Resp 17 S; Pulse Ox 96% on R/A; ca1 10:54 Body Mass Index 32.28 (90.72 kg, 167.64 cm) tw2 ED Course: 10:37 Patient arrived in ED. as 10:38 Keily Jackson MD is Private Physician. as 10:38 Julio Stratton MD is Private Physician. as 10:53 Triage completed. tw2 10:54 Arm band placed on. tw2 11:14 Joanne Ferrer FNP-C is PHCP. kb 11:14 Ace Low MD is Attending Physician. kb 13:28 Joanne Ferrer FNP-C is PHCP. kb 13:28 Ace Low MD is Attending Physician. kb 13:56 Belkys Obrien, CHRISTOPHER is Primary Nurse. ca1 14:19 No provider procedures requiring assistance completed. Initial lab(s) drawn, by me, ca1 sent to lab. Inserted saline lock: 22 gauge in right antecubital area, using aseptic technique. Blood collected. 14:21 Patient has correct armband on for positive identification. Placed in gown. Bed in low ca1 position. Call light in reach. Side rails up X 1. Pulse ox on. NIBP on. Warm blanket given. 14:27 CT Stone Protocol In Process Unspecified. EDMS 16:03 Keily Jackson MD is Referral Physician. kb 16:03 Julio Stratton MD is Referral Physician. kb 16:22 IV discontinued, intact, bleeding controlled, No redness/swelling at site. Pressure ca1 dressing applied. Administered Medications: No medications were administered Outcome: 16:04 Discharge ordered by . kb 16:25 Discharged to home ambulatory, with family. em 16:25 Condition: good 16:25 Discharge instructions given to patient, family, Instructed on discharge instructions, follow up and referral plans. Demonstrated understanding of instructions, follow-up care. 16:26 Patient left the ED. em Signatures: Dispatcher [employer] EDJoanne Todd, DELIVERY SUPERVISOR-C DELIVERY SUPERVISOR-CkJamie Lucio, SENIOR COUNSEL SENIOR COUNSEL em Tarah Michael Tara, RN RN tw2 Belkys Obrien RN RN ca1 Corrections: (The following items were deleted from the chart) 13:22 13:01 UA MICROSCOPIC+U.LAB.BRZ drawn and sent. tw2 EDTN
--- NOTE | 2019-02-20 16:05 | EDPHYS ---
Physician Documentation [facility] Name: Enrrique Vaughn Age: 73 yrs Sex: Male : 1945 Arrival Date: 02/20/2019 Time: 10:37 Bed 13 Private MD: Keily Jackson A; Julio Stratton V ED Physician Ace Low HPI: 02/20 15:55 This 73 yrs old Male presents to ER via Wheelchair with complaints of Urinary kb Problem - blood. 16:02 The patient presents with urinary symptoms, dysuria. Onset: The symptoms/episode kb began/occurred last night. Modifying factors: The symptoms are alleviated by nothing, the symptoms are aggravated by urinating. Associated signs and symptoms: Pertinent positives: dysuria, hematuria, Pertinent negatives: abdominal pain, constipation, diarrhea, fever, nausea, vomiting. Severity of symptoms: At their worst the symptoms were mild, moderate, in the emergency department the symptoms are unchanged. The patient has not experienced similar symptoms in the past. The patient has not recently seen a physician. Pt reports hematuria and dysuria since last night. Reports urine has cleared up since he has been here.. Historical: - Allergies: 10:59 Lipitor; tw2 10:59 Niaspan; tw2 10:59 Paxil; tw2 10:59 Tape; tw2 10:59 atorvastatin calcium; tw2 10:59 niacin; tw2 - Home Meds: 10:59 allopurinol 300 mg Oral tab 1 tab once daily [Active]; aspirin 325 mg Oral tab 1 tab tw2 once daily [Active]; Avodart 0.5 mg Oral cap 1 cap once daily [Active]; Crestor 20 mg Oral tab 1 tab once daily [Active]; Cymbalta 30 mg oral cpDR [Active]; Flomax 0.4 mg Oral cp24 1 cap once daily [Active]; Lyrica 150 mg Oral 1 cap nightly [Active]; metoprolol tartrate 100 mg Oral tab 1 tab once daily [Active]; Plavix 75 mg Oral tab 1 tab once daily (Last Dose: 02/16/2019 08:00) [Active]; Protonix 40 mg Oral TbEC 1 tab once daily [Active]; Trilipix 135 mg Oral cpDR 1 cap once daily [Active]; Vitamin C 1,000 mg Oral tab daily [Active]; Trelegy 100 mcg INH, daily [Active]; glucosamine-chondroitin 750 mg-100 mg- 125 mg-1.65 mg oral tab [Active]; tramadol 50 mg Oral tab 1 tab every 4 hours [Active]; Brovana 15 mcg/2 mL inhalation nebu 2 mL 2 times per day [Active]; - PMHx: 10:59 COPD; Hypertension; Prostate Cancer; tw2 - Immunization history:: Adult Immunizations. - Social history:: Smoking status: . - Ebola Screening: : Patient denies travel to an Ebola-affected area in the 21 days before illness onset. ROS: 16:01 Constitutional: Negative for fever, chills, and weight loss, Neck: Negative for injury, kb pain, and swelling, Cardiovascular: Negative for chest pain, palpitations, and edema, Respiratory: Negative for shortness of breath, cough, wheezing, and pleuritic chest pain, Abdomen/GI: Negative for abdominal pain, nausea, vomiting, diarrhea, and constipation, MS/Extremity: Negative for injury and deformity, Skin: Negative for injury, rash, and discoloration, Neuro: Negative for headache, weakness, numbness, tingling, and seizure. 16:01 : Positive for urinary symptoms, hematuria, burning with urination. Exam: 16:01 Constitutional: This is a well developed, well nourished patient who is awake, alert, kb and in no acute distress. Head/Face: Normocephalic, atraumatic. ENT: Nares patent. No nasal discharge, no septal abnormalities noted. Tympanic membranes are normal and external auditory canals are clear. Oropharynx with no redness, swelling, or masses, exudates, or evidence of obstruction, uvula midline. Mucous membranes moist. Neck: Trachea midline, no thyromegaly or masses palpated, and no cervical lymphadenopathy. Supple, full range of motion without nuchal rigidity, or vertebral point tenderness. No Meningismus. Chest/axilla: Normal chest wall appearance and motion. Nontender with no deformity. No lesions are appreciated. Cardiovascular: Regular rate and rhythm with a normal S1 and S2. No gallops, murmurs, or rubs. Normal PMI, no JVD. No pulse deficits. Respiratory: Lungs have equal breath sounds bilaterally, clear to auscultation and percussion. No rales, rhonchi or wheezes noted. No increased work of breathing, no retractions or nasal flaring. Abdomen/GI: Soft, non-tender, with normal bowel sounds. No distension or tympany. No guarding or rebound. No evidence of tenderness throughout. Back: No spinal tenderness. No costovertebral tenderness. Full range of motion. Skin: Warm, dry with normal turgor. Normal color with no rashes, no lesions, and no evidence of cellulitis. MS/ Extremity: Pulses equal, no cyanosis. Neurovascular intact. Full, normal range of motion. Neuro: Awake and alert, GCS 15, oriented to person, place, time, and situation. Cranial nerves II-XII grossly intact. Motor strength 5/5 in all extremities. Sensory grossly intact. Cerebellar exam normal. Normal gait. Vital Signs: 10:54 BP 120 / 75; Pulse 65; Resp 18; Temp 98.5(O); Pulse Ox 97% on R/A; Weight 90.72 kg (R); tw2 Height 5 ft. 6 in. (167.64 cm); Pain 0/10; 14:37 BP 179 / 83; Pulse 62; Resp 17 S; Pulse Ox 97% on R/A; ca1 15:30 BP 152 / 70; Pulse 66; Resp 17 S; Pulse Ox 96% on R/A; ca1 16:21 BP 156 / 56; Pulse 58; Resp 17 S; Pulse Ox 96% on R/A; ca1 10:54 Body Mass Index 32.28 (90.72 kg, 167.64 cm) tw2 MDM: 13:40 Patient medically screened. kb 15:55 Data reviewed: vital signs, nurses notes. Data interpreted: Pulse oximetry: on room air kb is 97 %. Interpretation: normal. 15:59 Counseling: I had a detailed discussion with the patient and/or guardian regarding: the kb historical points, exam findings, and any diagnostic results supporting the discharge/admit diagnosis, lab results, radiology results, the need for outpatient follow up, a family practitioner, a urologist, to return to the emergency department if symptoms worsen or persist or if there are any questions or concerns that arise at home. 16:00 Physician consultation: Keily Jackson MD was contacted at 16:01, regarding consult, kb patient's condition, and will see patient in office, next week, requests urine culture. ED course: Pt educated to return for worsening symptoms, inability to urinate. 02/20 13:02 Order name: UA eb 02/20 14:09 Order name: CBC with Diff; Complete Time: 15:02 kb 02/20 14:09 Order name: Basic Metabolic Panel; Complete Time: 15:02 kb 02/20 14:09 Order name: Ptt, Activated; Complete Time: 14:51 kb 02/20 14:09 Order name: Protime (+inr); Complete Time: 14:51 kb 02/20 11:15 Order name: Urine Dipstick-Ancillary (obtain specimen); Complete Time: 14:11 kb 02/20 14:09 Order name: IV Start; Complete Time: 14:20 kb 02/20 14:09 Order name: CT Stone Protocol; Complete Time: 14:45 kb 02/20 14:14 Order name: Urine Microscopic Only EDMS 02/20 14:16 Order name: Urine Culture EDMS Administered Medications: No medications were administered Disposition: 02/20/19 16:04 Discharged to Home. Impression: Hematuria, unspecified. - Condition is Stable. - Discharge Instructions: Hematuria, Adult. - Medication Reconciliation Form, Thank You Letter, Antibiotic Education, Prescription Opioid Use form. - Follow up: Emergency Department; When: As needed; Reason: Worsening of condition. Follow up: Keily Jackson MD; When: 2 - 3 days; Reason: Recheck today's complaints, Continuance of care, Re-evaluation by your physician. Follow up: Julio Stratton MD; When: 2 - 3 days; Reason: Recheck today's complaints, Continuance of care, Re-evaluation by your physician. Addendum: 02/24/2019 06:36 Co-signature as Attending Physician, Ace Low MD I agree with the assessment and k dr plan of care. Signatures: Dispatcher [employer] [facility] Joanne Ferrer, ENERGY PROJECTS LEAD-C ENERGY PROJECTS LEAD-CkAce Khan MD MD [facility] Jamie Cummins, CLINIC ASSISTANT CLINIC ASSISTANT em Flower Bowen, RN RN tw2 Corrections: (The following items were deleted from the chart) 02/20 13:22 11:15 UA MICROSCOPIC+U.LAB.BRZ ordered. [facility] 16:26 16:04 02/20/2019 16:04 Discharged to Home. Impression: Hematuria, unspecified. em Condition is Stable. Forms are Medication Reconciliation Form, Thank You Letter, Antibiotic Education, Prescription Opioid Use. Follow up: Emergency Department; When: As needed; Reason: Worsening of condition. Follow up: Keily Jackson; When: 2 - 3 days; Reason: Recheck today's complaints, Continuance of care, Re-evaluation by your physician. Follow up: Julio Stratton; When: 2 - 3 days; Reason: Recheck today's complaints, Continuance of care, Re-evaluation by your physician. kb
[2019-02-20 17:28] VITALS: O2SAT 96
[2019-02-20 17:29] VITALS: BP 156/56
== END 2019-02-20 16:26 | disposition home or self-care (01) ==
LOC: ER 10:35
DX: R31.9 Hematuria, unspecified (principal); J44.9 Chronic obstructive pulmonary disease, unspecified; I10 Essential (primary) hypertension; Z85.46 Personal history of malignant neoplasm of prostate; Z88.8 Allergy status to other drugs, medicaments and biological substances
CPT/HCPCS: 36415; 74176; 76377; 80048; 81003; 81015; 85025; 85610; 85730; 87086; 87088

== ENCOUNTER 2021-06-24 15:52 | Inpatient (IN) | payer OTHER ==
--- OUTSIDE RECORDS SUMMARY | 2021-06-24 15:56 | XMS REPORT | Continuity of Care Document ---
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 (PLAVIX) 75 18 by mouth ity of mg tablet 09:45: daily. [address] Pantoprazol 2020-04 Yes 40mg Take 40 mg Univers e 18 by mouth ity of (PROTONIX) 09:45: daily. [place] 40 [facility] Medical delayed-rel Branch ease suspension fluticasone 2020-04 Yes Inhale. Uni vers -umeclidin- 18 ity of vilanter 09:45: [place] (TRELEGY [address] [place] [address] ELLIPTA) Branch 100-62.5-25 mcg DsDv Vitamin E 2020-[address] Yes Take by [facility] ers 100 1-18 mouth. ity of unit/0.25 09:45: [place] mL Drop [address] [place] [address] Immunizations Ordered Filled Immunization Date Status Comments [facility] e Immunization Name Name SARS-COV-2 COVID-19 2020-12-13 Completed Unive rsity of PFIZER VACCINE 00:00:00 [facility] SARS-COV-2 COVID-19 2020-12-13 Completed Unive rsity of PFIZER VACCINE 00:00:00 [facility] SARS-COV-2 COVID-19 2020-11-21 Completed Unive rsity of PFIZER VACCINE 00:00:00 [facility] SARS-COV-2 COVID-19 2020-11-21 Completed Unive rsity of PFIZER VACCINE 00:00:00 [facility] Vital Signs Vital Name Observation Time Observation Value Comments Source Heart rate 2021-03-16 17:31:00 56 /min [facility] [place] [facility] [place] [facility] of [facility] Respiratory rate 2021-03-16 17:31:00 16 /min [facility] ersFormerly [facility] Oxygen saturation in 2021-03-16 17:31:00 94 /min [facility] Ar[facility] blood by [facility] Pulse oximetry Branch Systolic blood 2021-03-16 17:27:00 187 mm[Hg] Univer sity of pressure [facility] Diastolic blood 2021-03-16 17:27:00 84 mm[Hg] Unive rsity of pressure [facility] Body temperature 2021-03-16 17:13:00 36.44 Caridad Univ ersity of [place] [facility] Body height 2021-03-09 20:58:00 167.6 cm Universi ty [facility] [place] [facility] Body weight 2021-03-09 20:58:00 89.8 kg Universi ty [facility] [place] [facility] BMI 2021-03-09 20:58:00 31.95 kg/m2 [facility] ty [facility] [place] [facility] Systolic blood 2021-03-16 14:41:00 179 mm[Hg] Univer sity of pressure [place] [facility] Diastolic blood 2021-03-16 14:41:00 81 mm[Hg] Unive rsity of pressure [place] [facility] Heart rate 2021-03-16 14:41:00 59 /min [facility]i [facility] [place] [facility] Body temperature 2021-03-16 14:41:00 36.39 Caridad Univ ersity of [place] [facility] Respiratory rate 2021-03-16 14:41:00 19 /min Univ ersity of [facility] Oxygen saturation in 2021-03-16 14:41:00 94 /min University of Arterial blood by [facility] Pulse oximetry Branch Body height 2021-03-09 20:58:00 167.6 cm [facility]i [facility] [place] [facility] Body weight 2021-03-09 20:58:00 89.8 kg Universi ty [facility] [place] [facility] BMI 2021-03-09 20:58:00 31.95 kg/m2 [facility]i ty [facility] [place] [facility] Heart rate 2021-02-23 15:32:00 59 /min Universi ty of [facility] Oxygen saturation in 2021-02-23 15:32:00 95 /min University of Arterial blood by [facility] Pulse oximetry Branch Systolic blood 2021-02-23 15:29:00 176 mm[Hg] Univer sity of pressure [place] [facility] Diastolic blood 2021-02-23 15:29:00 85 mm[Hg] Unive rsity of pressure [place] [facility] Respiratory rate 2021-02-23 15:29:00 20 /min Univ ersity of [place] [facility] Body temperature 2021-02-23 15:16:00 36.22 Caridad Univ ersity [facility] [place] [facility] Body height 2021-02-20 19:08:00 167.6 cm [facility]i ty [facility] [place] [facility] Body weight 2021-02-20 19:08:00 89.8 kg Universi ty [facility] [place] [facility] BMI 2021-02-20 19:08:00 31.97 kg/m2 Universi [facility] Systolic blood 2021-02-23 13:11:00 160 mm[Hg] Univer sity of pressure [facility] Diastolic blood 2021-02-23 13:11:00 70 mm[Hg] Unive rsity of pressure [facility] Heart rate 2021-02-23 13:11:00 63 /min [facility] Body temperature 2021-02-23 13:11:[address] [facility] ersFormerly [facility] Respiratory rate 2021-02-23 13:11:00 19 /min [facility] ersFormerly [facility] Oxygen saturation in 2021-02-23 13:11:00 97 /min [facility] Arterial blood by [facility] Pulse oximetry Branch Body height 2021-02-20 19:08:[address] [facility] Body weight 2021-02-20 19:08:[address] [facility] BMI 2021-02-20 19:08:00 31.97 kg/m2 [facility] Procedures Procedure Date / Time Performing Source Performed Clinician PHACOEMULSIFICATION OF 2021-03-16 [facility] CATARACT WITH INTRAOCULAR 16:18:00 Mir Triplett LENS IMPLANT ASSIGNMENT OF BENEFITS 2021-03-13 Doctor Unassigned, [facility] 15:20:07 [facility] PHACOEMULSIFICATION OF 2021-02-23 [facility] CATARACT WITH INTRAOCULAR 14:30:00 Mir Triplett LENS IMPLANT CBC WITH DIFF 2021-02-20 Johnathon [facility] xas 14:56:00 [facility] COVID-19 (ID NOW RAPID 2021-02-20 [facility] TESTING) 14:50:00 [facility] ASSIGNMENT OF BENEFITS 2021-02-20 Doctor Unassigned, [facility] 14:27:10 [facility] Encounters Start End Encounter Admission Attending Care Care Encounter Source Date/Time Date/Time Type Type Clinicians Facility Department ID 2021-03-16 2021-03-16 Outpatient R JOHNATHON [facility] OPH [id number] Univers 08:29:00 11:46:00 TRES ity [facility] 2021-03-16 2021-03-16 [facility] [id number] Univers 08:29:00 11:46:00 Encounter Tres DUEÑAS [id number] ity of Mir [place]UCAS[place] [id number] [address] 2021-03-16 2021-03-16 [facility] [id number] Univers 09:54:00 10:30:00 Tres DUEÑAS [id number] i ty of [place] [id number] [facility] 020 [place] 2021-03-13 2021-03-13 Orders Doctor MIKE [id number] Univers 00:00:00 00:00:00 Only Unassigned, SON 350.1.13.10 ity of [facility] 4.2.7.2.686 Jeremi as [id number] [address] 2021-02-23 2021-02-23 Outpatient R [facility] OPH [id number] Univers 07:00:00 09:45:00 TRES jo of [facility] 2021-02-23 2021-02-23 [facility] [id number] Univers 07:00:00 09:45:00 Encounter Tres DUEÑAS [id number] ity of [place] [id number] [address] 2021-02-23 2021-02-23 Surgery [facility] [id number] Univers 08:37:00 09:11:00 Tres DUEÑAS [id number] i ty of Mir [place]UCAS[place] [id number] [facility] 020 [place] 2021-02-20 2021-02-20 [place] Operator Pancho, Adc Lab Main [facility] 1.2.8 40.114 [id number] Univers 08:35:12 08:50:12 Visit Tres Jeronimo 350.1.1 3.10 ity of [place] PROF[place] [id number] Hi dical [address] 2021-02-20 2021-02-20 Outpatient R [facility] [id number] Univers 08:45:00 08:45:00 [id number] ity [facility] 2021-02-20 2021-02-20 Outpatient R JOHNATHON, [facility] [id number] Univers 08:45:00 08:45:00 TRES ity [facility] 2021-02-20 2021-02-20 Orders Doctor MCKEON [id number] Univers 00:00:00 00:00:00 Only Unassigned, SON 350.1.13.10 ity of [facility] 4.2.7.2.686 Jeremi as [phone] [address] Results Test Description Test Time Test Comments Results Result Comments Source CBC WITH DIFF 2021-02-20 15:01:08 Test Item Value Reference Range Interpretation Comme nts WBC (test code = 6690-2) See_Comment [A utomated message] The system which [employer]li nerated this result transmit connie reference range: 4.20 - 1 0.70 10*3/?L. The reference r joaquin was not used to interpr et this result as normal/abnor mal. RBC (test code = 789-8) See_Comment L [Au tomated message] The system which [employer] nerated this result transmit connie reference range: 4.26 - 5 .52 10*6/?L. The reference r joaquin was not used to interpr et this result as normal/abnor mal. HGB (test code = 718-7) 10.7 g/dL 12.2-16.4 L HCT (test code = 4544-3) 33.4 % 38.4-49.3 L MCV (test code = 787-2) 99.4 fL 81.7-95.6 H MCH (test code = 785-6) 31.8 pg 26.1-32.7 MCHC (test code = 786-4) 32.0 g/dL 31.2-35.0 RDW-SD (test code = 96738-5) 56.7 fL 38.5-51.6 H RDW-CV (test code = 788-0) 15.7 % 12.1-15.4 H PLT (test code = 777-3) See_Comment [Au tomated message] The system which ge nerated this result transmit connie reference range: 150 - 32 8 10*3/?L. The reference range was not used to interpret th is result as normal/abnormal . MPV (test code = 99110-0) 10.8 fL 9.8-13.0 NRBC/100 WBC (test code = See_Comment [ Automated message] The [id number]) system which ge nerated this result transmit connie reference range: 0.0 - 10 .0 /100 WBCs. The reference r joaquin was not used to interpr et this result as normal/abnor mal. NRBC x10^3 (test code = <0.01 See_Comment [Au tomated message] The [id number]) system which ge nerated this result transmit connie reference range: 10*3/?L. The reference range was not u sed to interpret this result as normal/abnormal . GRAN MAT (NEUT) % (test code 76.8 % = 770-8) IMM GRAN % (test code = 0.80 % [id number]) LYMPH % (test code = 736-9) 16.0 % MONO % (test code = 5905-5) 5.8 % EOS % (test code = 713-8) 0.0 % BASO % (test code = 706-2) 0.6 % GRAN MAT x10^3(ANC) (test 5.54 10*3/uL 1.99-6.95 code = [id number]) IMM GRAN x10^3 (test code = 0.06 10*3/uL 0.00-0.06 [id number]) LYMPH x10^3 (test code = 1.15 10*3/uL 1.09-3.23 731-0) MONO x10^3 (test code = 0.42 10*3/uL 0.36-1.02 742-7) EOS x10^3 (test code = <0.03 0.06-0.53 L 711-2) BASO x10^3 (test code = 0.04 10*3/uL 0.01-0.09 704-7) Lab Interpretation (test Abnormal code = 18416-6) [facility] [id number] 12:20:00Addendum BeginsREPORT STATUS:A Addendum: I have reviewed the nonvascular features of this examination concur with Dr. Stewart's report. There is been interval growth in the size of the largest cyst in the left kidney from 5.7 to 8.1 cm. The other renal lesions are unchanged in size and configuration. Signed: Mehdi Boone MDReport Verified Date/Time: 10/22/2018 12:20:45 Reading Location: [place] [address] Angio Body Reading RoomAddendum EndsFINAL REPORT CT of the abdomen and pelvis, without contrast, Oct 24 INDICATION: This is a 73 year old male with history of abdominal aortic aneurysm status post endovascular exclusion. Patient presents for followup yamilet luation. TECHNIQUE: Spiral acquisition was performed with mild intravenous contrast administration using a GE multidetector scanner. Multi-planar 3-D volume-rendering reconstruction was performed usingan independent workstation. This exam was performed according to our departmental dose-optimisation p rogrampa, which includes automated exposure control, adjustment of the mA and/or kV according to patient size and/or use of iterative reconstruction technique. Dose modulation, iterative reconstruction, and/or weight based adjustment of the mA/kV was utilized to reduce the radiation dose to as low as reasonably achievable. FINDINGS: VASCULAR: Coronary artery calcification is seen in the distal RCA.Once again of note, endostent is present, commences [...] the mid infrarenal level; and 4.6 x 4.1cm at distal in the renal level, and 2.4 x 2 point cm at the aortic bifurcation. Maximum diameter inthe distal infrarenal abdominal aorta was 4.2 x 3.8 cm, in 2017, on remeasurement. The aortic volume measurement in inferior to the right renal artery down to the aortic bifurcation is 124 cc. In 2017,it measure 114 cc. NON-VASCULAR: The lung bases are unremarkable. No pleural effusion is identified.Calcified granuloma is identified in the left lung. Calcification is seen at the diaphragmatic surface in the left and the right. Prior addendum by the Roll Over Press Operator Radiologist, the calcification could be related to asbestos exposure in the past. In the noncontrast data set, the liver and spleen appearsunremarkable. The liver edge is smooth. Patient is post cholecystectomy. The pancreas appears unremarkable. Tiny focal calcification is seen near the head of the pancreas at image 139, no difference toprior examination. The adrenal glands are not enlarged. [...] is seen. Tiny sclerotic foci are identified inthe right and left femoral likely represent bone islands, stable when compared to prior examination.CONCLUSIONS: 1. Patient is post endostent placement in the abdominal aorta. It appears to be well po sitioned. Assessment is incomplete without contrast administration. Quantitative dimensions as described above. The aortic volume measurement in inferior to the right renal artery down to the aortic bifurcation is 124 cc. In 2017, it measure 114 cc, remeasured. There is some mild increased in both diameter and volume on remeasurement, when compared to prior examination. 2. Other findings as describedabove; assessment is limited without contrast administration. 3. An addendum will be dictated regarding the non-vascular findings by the [employer] Operator Radiologists. Signed: Fausto Stewart MDReport Verified Date/Time: 10/22/2018 10:10:53 Reading Location: [place] [id number] Cardiology MRI Electronicallysigned by: MEHDI BOONE M.D. on 10/22/2018 12:20 PM
[2021-06-24] MEDS ORDERED: METHYLPREDNISOLONE 125 MG INJ ONE (16:16)
[2021-06-24] MEDS ORDERED: IPRATROPIUM BROM 0.5MG/2.5ML ONE (16:17)
[2021-06-24] MEDS ORDERED: MAGNESIUM SULFATE 1 gm IVPB 1 GM/100 ML BAG IV ONE (16:17)
[2021-06-24 16:34] LABS: Absolute Lymphocytes (CBC) 0.4 K/uL (0.7-4.9); Hematocrit 33.9 % (39.6-49.0); Lymphocytes % 3.8 % (15.3-44.8); MPV 10.6 fL (7.6-11.3); RBC Red Blood Cell Count 3.42 M/uL (4.33-5.43)
[2021-06-24 16:56] LABS: Potassium 5.3 mmol/L (3.5-5.1)
[2021-06-24 17:03] LABS: Magnesium 1.3 mg/dL (1.8-2.4)
[2021-06-24 17:45] LABS: SARS-COV-2 RT PCR NEGATIVE (NEGATIVE)
--- NOTE | 2021-06-24 17:56 | RAD REPORT ---
EXAM DESCRIPTION: RAD - Chest Single View - 06/24/2021 5:43 pm CLINICAL HISTORY: SOB;Cough COMPARISON: Chest Pa And Lat (2 Views) dated 07/23/2018; Abdomen 1 View (KUB) dated 12/16/2017; Chest Single View dated 11/03/2017; Chest Pa And Lat (2 Views) dated 01/20/2016 FINDINGS: Lines: None. Lungs: Ill-defined bilateral airspace disease with in lung bases. Pleural: No significant pleural effusions or pneumothorax. Cardiac: Cardiomegaly. Bones: No acute fractures. Spinal stimulator. Other: IMPRESSION: Irregular airspace disease within the mid lungs and lung bases could reflect multifocal pneumonia.
[2021-06-24 18:20] LABS: Blood Morphology Comment NOT SEEN (NOT SEEN); Platelet Estimate DECR; White Blood Cell Scan OK (OK)
[2021-06-24] MEDS ORDERED: OSELTAMIVIR 75 MG CAP ONE (20:11)
--- NOTE | 2021-06-24 20:14 | EDPHYS ---
Physician Documentation [facility] Name: Enrrique Vaughn Age: 76 yrs Sex: Male : 1945 Arrival Date: 06/24/2021 Time: 15:58 Bed 16 Private MD: ED Physician Myesha Boyd HPI: 06/24 16:09 This 76 yrs old Male presents to ER via Ambulatory with complaints of Breathing pm1 Difficulty. 16:09 The patient has shortness of breath at rest. Onset: The symptoms/episode began/occurred pm1 2 week(s) ago. Duration: The symptoms are continuous, and are steadily getting worse. The patient's shortness of breath is aggravated by light activity, walking. Associated signs and symptoms: Pertinent positives: productive cough, Pertinent negatives: chest pain, fever, nausea, vomiting, diarrhea. Severity of symptoms: in the emergency department the symptoms are worse. The patient has been recently seen by a physician: the patient's primary care provider, Dr. Stratton 10 day(s) ago, with similar presenting complaints, and apparently given a diagnosis of bronchitis, was given a prescription for antibiotics, but the patient's symptoms have worsened. Historical: - Allergies: 16:02 atorvastatin calcium; ic1 16:02 Lipitor; ic1 16:02 Niacin; ic1 16:02 Niaspan; ic1 16:02 Paxil; ic1 16:02 Tape; ic1 - Home Meds: 16:02 allopurinol 300 mg Oral tab 1 tab once daily [Active]; aspirin 325 mg Oral tab 1 tab ic1 once daily [Active]; Avodart 0.5 mg Oral cap 1 cap once daily [Active]; Brovana 15 mcg/2 mL inhalation nebu 2 mL 2 times per day [Active]; Crestor 20 mg Oral tab 1 tab once daily [Active]; Cymbalta 30 mg Oral cpDR [Active]; Flomax 0.4 mg Oral cp24 1 cap once daily [Active]; glucosamine-chondroitin 750 mg-100 mg- 125 mg-1.65 mg Oral tab [Active]; Lyrica 150 mg Oral 1 cap nightly [Active]; metoprolol tartrate 100 mg Oral tab 1 tab once daily [Active]; Plavix 75 mg Oral tab 1 tab once daily [Active]; Protonix 40 mg Oral TbEC 1 tab once daily [Active]; tramadol 50 mg Oral tab 1 tab every 4 hours [Active]; Trelegy 100 mcg INH, daily [Active]; Trilipix 135 mg Oral cpDR 1 cap once daily [Active]; Vitamin C 1,000 mg Oral tab daily [Active]; - PMHx: 16:02 COPD; Hypertension; Prostate Cancer; ic1 - Immunization history:: Adult Immunizations up to date. - Social history:: Smoking status: Patient reports the use of cigarette tobacco products, unknown amount. ROS: 16:09 Constitutional: Negative for fever, chills, and weight loss, Cardiovascular: Negative pm1 for chest pain, palpitations, and edema. 16:09 Abdomen/GI: Negative for abdominal pain, nausea, vomiting, diarrhea, and constipation, Back: Negative for injury and pain, MS/Extremity: Negative for injury and deformity, Skin: Negative for injury, rash, and discoloration, Neuro: Negative for headache, weakness, numbness, tingling, and seizure. 16:09 Respiratory: Positive for cough, shortness of breath. 16:09 All other systems are negative. Exam: 16:09 Constitutional: This is a well developed, well nourished patient who is awake, alert, pm1 and in no acute distress. Head/Face: Normocephalic, atraumatic. 16:09 Back: No spinal tenderness. No costovertebral tenderness. Full range of motion. Skin: Warm, dry with normal turgor. Normal color with no rashes, no lesions, and no evidence of cellulitis. MS/ Extremity: Pulses equal, no cyanosis. Neurovascular intact. Full, normal range of motion. 16:09 Cardiovascular: Exam negative for acute changes, Rate: normal, Rhythm: regular, Pulses: no pulse deficits are appreciated, Heart sounds: normal, normal S1and S2. 16:09 Respiratory: the patient does not display signs of respiratory distress, Respirations: normal, Breath sounds: rhonchi, that are mild, are heard diffusely. 16:09 Abdomen/GI: Exam negative for acute changes, Inspection: abdomen appears normal, Palpation: abdomen is soft and non-tender, in all quadrants. 16:09 Neuro: Exam negative for acute changes, Orientation: is normal, Mentation: is normal, Motor: is normal, moves all fours. Vital Signs: 16:00 BP 169 / 86; Pulse 79; Resp 22; Pulse Ox 100% on 5 lpm NC; ic1 17:03 Pulse 74; Resp 20; Temp 98.3(O); Pulse Ox 99% on 3 lpm NC; ic1 18:54 BP 133 / 67; Pulse 68; Resp 20; Pulse Ox 96% on 2 lpm NC; ic1 19:27 BP 133 / 66; Pulse 67; Resp 18; Pulse Ox 97% on 2 lpm NC; ss7 21:00 BP 172 / 86; Pulse 63; Resp 18; Pulse Ox 97% on 2 lpm NC; ss7 22:00 BP 147 / 79; Pulse 68; Resp 18; Pulse Ox 97% on 2 lpm NC; ss7 23:00 BP 145 / 70; Pulse 63; Resp 20; Pulse Ox 98% on 2 lpm NC; ss7 MDM: 16:05 Patient medically screened. pm1 20:12 Data reviewed: vital signs. Data interpreted: Pulse oximetry: on 2L(s) per nasal pm1 canula, is 97 %. Interpretation: normal. 20:12 Counseling: I had a detailed discussion with the patient and/or guardian regarding: the pm1 historical points, exam findings, and any diagnostic results supporting the discharge/admit diagnosis, lab results, radiology results, the need for further work-up and treatment in the hospital. 20:59 Physician consultation: Julio Stratton MD Called Dr. Stratton on multiple occasions 1720, pm1 1738, and 2058. Patient hypoxia and shortness of breath with walking and without oxygen. Patient needs supplemental oxygen and treatment for copd exacerbation and influenza, therefore will admit the patient. 06/24 16:08 Order name: Basic Metabolic Panel pm1 06/24 16:08 Order name: CBC with Diff pm1 06/24 16:08 Order name: Magnesium pm1 06/24 16:08 Order name: Basic Metabolic Panel; Complete Time: 17:52 EDMS 06/24 16:08 Order name: CBC with Automated Diff; Complete Time: 18:49 EDMS 06/24 16:08 Order name: Magnesium; Complete Time: 17:52 EDMS 06/24 16:08 Order name: XRAY Chest (1 view); Complete Time: 18:03 pm1 06/24 16:26 Order name: COVID-19/FLU A+B (Document "Date of Onset" if Symptomatic) pm1 06/24 16:27 Order name: COVID-19/FLU A+B; Complete Time: 18:03 EDMS 06/24 18:20 Order name: CBC Smear Scan; Complete Time: 18:49 EDMS 06/24 16:08 Order name: EKG; Complete Time: 16:09 pm1 06/24 16:08 Order name: Cardiac monitoring; Complete Time: 16:36 pm1 06/24 16:08 Order name: EKG - Nurse/Tech; Complete Time: 16:10 pm1 06/24 16:08 Order name: IV Saline Lock; Complete Time: 16:10 pm1 06/24 16:08 Order name: Labs collected and sent; Complete Time: 16:10 pm1 06/24 16:08 Order name: O2 Per Protocol; Complete Time: 16:10 pm1 06/24 16:08 Order name: O2 Sat Monitoring; Complete Time: 16:10 pm1 06/24 19:30 Order name: Misc. Order: Ambulate patient; Complete Time: 20:04 pm1 Administered Medications: 16:22 Drug: Albuterol - atroVENT (ipratropium) (3:1) (2.5 mg - 0.5 mg) 3 ml Route: Nebulizer; ic1 23:25 Follow up: Response: Other; decreased shortness of breath ss7 16:23 Drug: SOLU-Medrol (methylPrednisoLONE) 125 mg Route: IVP; Site: left antecubital; ic1 23:26 Follow up: Response: No adverse reaction ss7 16:23 Dru grams of (Magnesium Sulfate 1 grams, NS 0.9% 100 ml) Route: IVPB; Infused Over: ic1 1 hrs; Site: left antecubital; 20:11 Drug: Tamiflu (oseltamivir) 75 mg Route: PO; ss7 22:24 Follow up: Response: No adverse reaction ss7 23:25 Follow up: Response: No adverse reaction ss7 Disposition Summary: 06/24/21 20:14 Hospitalization Ordered Hospitalization Status: Inpatient Admission pm1 Provider: Julio Stratton [facility]1 [facility] Condition: Stable pm1 Problem: new pm1 Symptoms: have improved pm1 Bed/Room Type: Standard pm1 Room Assignment: 410(06/24/21 23:01) cg Diagnosis - COPD/ Chronic obstructive pulmonary disease with (acute) exacerbation pm1 - Influenza due to identified novel influenza A virus pm1 - Viral pneumonia, unspecified pm1 Forms: - Medication Reconciliation Form pm1 - SBAR form pm1 Signatures: Dispatcher [employer] Pastora Sanchez RN RN cg Reymundo Baker, BLENDER BLENDER pm1 Kellee Smith RN RN ic1 Malu Calderon RN RN ss7 Corrections: (The following items were deleted from the chart) 23:01 20:14 pm1 cg
--- NOTE | 2021-06-24 20:14 | ER ---
Nurse's Notes [facility] Name: Enrrique Vaughn Age: 76 yrs Sex: Male : 1945 Arrival Date: 06/24/2021 Time: 15:58 Bed 16 Private MD: Diagnosis: COPD/ Chronic obstructive pulmonary disease with (acute) exacerbation;Influenza due to identified novel influenza A virus;Viral pneumonia, unspecified Presentation: 06/24 16:00 Chief complaint: Patient states: c/o sob x 2 weeks. Seen by MD and prescribed ic1 antibiotics for possible bronchitis. SOB hasn't gotten better as endorsed by pt's . Pt denies cp. Coronavirus screen: Vaccine status: Patient reports receiving the 2nd dose of the covid vaccine. Ebola Screen: No symptoms or risks identified at this time. Initial Sepsis Screen: Does the patient meet any 2 criteria? No. Patient's initial sepsis screen is negative. Does the patient have a suspected source of infection? No. Patient's initial sepsis screen is negative. Risk Assessment: Do you want to hurt yourself or someone else? Patient reports no desire to harm self or others. Onset of symptoms is unknown. 16:00 Method Of Arrival: Ambulatory ic1 16:00 Acuity: SAMANTHA 3 ic1 Triage Assessment: 16:02 General: Appears distressed, Behavior is cooperative, anxious. Pain: Denies pain. EENT: ic1 No deficits noted. Neuro: Level of Consciousness is awake, alert, obeys commands, Oriented to person, place, time, situation. Cardiovascular: No deficits noted. Respiratory: Reports shortness of breath cough that is Onset: The symptoms/episode began/occurred x 2 weeks ago , the patient has moderate shortness of breath. GI: No deficits noted. : No deficits noted. Derm: No deficits noted. Musculoskeletal: No deficits noted. Historical: - Allergies: 16:02 atorvastatin calcium; ic1 16:02 Lipitor; ic1 16:02 Niacin; ic1 16:02 Niaspan; ic1 16:02 Paxil; ic1 16:02 Tape; ic1 - Home Meds: 16:02 allopurinol 300 mg Oral tab 1 tab once daily [Active]; aspirin 325 mg Oral tab 1 tab ic1 once daily [Active]; Avodart 0.5 mg Oral cap 1 cap once daily [Active]; Brovana 15 mcg/2 mL inhalation nebu 2 mL 2 times per day [Active]; Crestor 20 mg Oral tab 1 tab once daily [Active]; Cymbalta 30 mg Oral cpDR [Active]; Flomax 0.4 mg Oral cp24 1 cap once daily [Active]; glucosamine-chondroitin 750 mg-100 mg- 125 mg-1.65 mg Oral tab [Active]; Lyrica 150 mg Oral 1 cap nightly [Active]; metoprolol tartrate 100 mg Oral tab 1 tab once daily [Active]; Plavix 75 mg Oral tab 1 tab once daily [Active]; Protonix 40 mg Oral TbEC 1 tab once daily [Active]; tramadol 50 mg Oral tab 1 tab every 4 hours [Active]; Trelegy 100 mcg INH, daily [Active]; Trilipix 135 mg Oral cpDR 1 cap once daily [Active]; Vitamin C 1,000 mg Oral tab daily [Active]; - PMHx: 16:02 COPD; Hypertension; Prostate Cancer; ic1 - Immunization history:: Adult Immunizations up to date. - Social history:: Smoking status: Patient reports the use of cigarette tobacco products, unknown amount. Screenin:09 Abuse screen: Denies threats or abuse. Denies injuries from another. Nutritional ic1 screening: No deficits noted. Tuberculosis screening: No symptoms or risk factors identified. Fall Risk None identified. Assessment: 16:09 Reassessment: see triage. ic1 18:54 Reassessment: Patient appears in no apparent distress at this time. Patient and/or ic1 family updated on plan of care and expected duration. Pain level reassessed. Patient is alert, oriented x 3, equal unlabored respirations, skin warm/dry/pink. 19:28 Respiratory: Airway. ss7 19:54 Reassessment: Prior to ambulation O2 sat on RA 95%. Pt ambulated to the bathroom, upon ss7 return pt noted to be anxious requesting 02. Prior to O2 pt was 89% on RA. Placed on 3L BNC and increased to 98%. Will decrease to 2L to prevent knocking out respiratory drive due to COPD. . 23:25 Reassessment: Unsuccessful attempt to call report to 4th floor. ss7 Vital Signs: 16:00 BP 169 / 86; Pulse 79; Resp 22; Pulse Ox 100% on 5 lpm NC; ic1 17:03 Pulse 74; Resp 20; Temp 98.3(O); Pulse Ox 99% on 3 lpm NC; ic1 18:54 BP 133 / 67; Pulse 68; Resp 20; Pulse Ox 96% on 2 lpm NC; ic1 19:27 BP 133 / 66; Pulse 67; Resp 18; Pulse Ox 97% on 2 lpm NC; ss7 21:00 BP 172 / 86; Pulse 63; Resp 18; Pulse Ox 97% on 2 lpm NC; ss7 22:00 BP 147 / 79; Pulse 68; Resp 18; Pulse Ox 97% on 2 lpm NC; ss7 23:00 BP 145 / 70; Pulse 63; Resp 20; Pulse Ox 98% on 2 lpm NC; ss7 ED Course: 15:58 Patient arrived in ED. vg1 15:58 Reymundo Baker NP is PHCP. pm1 15:58 Myesha Boyd MD is Attending Physician. pm1 16:00 Kellee Smith RN is Primary Nurse. ic1 16:02 Triage completed. ic1 16:02 Arm band placed on. ic1 16:03 Patient has correct armband on for positive identification. Placed in gown. Bed in low mh5 position. Call light in reach. Side rails up X2. Adult w/ patient. Warm blanket given. manager monitoring on. Pulse ox on. NIBP on. 16:03 EKG done, by ED staff, reviewed by Reymundo Baker NP. mh5 16:09 No provider procedures requiring assistance completed. Inserted saline lock: 20 gauge ic1 in left antecubital area, using aseptic technique. Blood collected. 16:32 Initial lab(s) drawn, by ED staff, sent to lab. mh5 16:33 Basic Metabolic Panel Sent. mh5 16:35 COVID-19/FLU A+B Sent. mh5 16:35 COVID-19/FLU A+B (Document "Date of Onset" if Symptomatic) Sent. mh5 16:35 CBC with Diff Sent. mh5 16:35 Magnesium Sent. mh5 16:36 Magnesium Sent. 5 16:36 CBC with Automated Diff Sent. 5 16:36 Basic Metabolic Panel Sent. mh5 17:02 Notified Nurse Practitioner and/or Physician Director [employer] [facility] [place] notified ll1 magnesium 1.3. 17:43 XRAY Chest (1 view) In Process Unspecified. EDMS 20:13 Julio Stratton MD is Hospitalizing Provider. pm1 23:47 Patient admitted, IV remains in place. intact. ss7 23:48 Report given to Oscar. ss7 Administered Medications: 16:22 Drug: Albuterol - atroVENT (ipratropium) (3:1) (2.5 mg - 0.5 mg) 3 ml Route: Nebulizer; ic1 23:25 Follow up: Response: Other; decreased shortness of breath ss7 16:23 Drug: SOLU-Medrol (methylPrednisoLONE) 125 mg Route: IVP; Site: left antecubital; ic1 23:26 Follow up: Response: No adverse reaction ss7 16:23 Dru grams of (Magnesium Sulfate 1 grams, NS 0.9% 100 ml) Route: IVPB; Infused Over: ic1 1 hrs; Site: left antecubital; 20:11 Drug: Tamiflu (oseltamivir) 75 mg Route: PO; ss7 22:24 Follow up: Response: No adverse reaction ss7 23:25 Follow up: Response: No adverse reaction ss7 Outcome: 20:14 Decision to Hospitalize by Provider. pm1 23:22 Admitted to Tele accompanied by nurse, via stretcher, room 410, with chart. ss7 23:22 Condition: good 06/25 00:19 Patient left the ED. ss7 Signatures: Dispatcher [employer] EDMS Reymundo Baker NP POLICE CR[employer] SCENE TECHNICIAN [email or web address] Lupe Michael 5 Jovita Flores, RN RN 1 Concepción Nickerson RN RN [email or web address] Kellee Smith RN RN ic1 Malu Calderon RN RN ss7 Corrections: (The following items were deleted from the chart) 06/24 23:25 23:00 BP 145 / 70; Pulse 63bpm; Resp 20bpm; Pulse Ox 100% RA; ss7 ss7 23:49 23:00 BP 145 / 70; Pulse 63bpm; Resp 20bpm; Pulse Ox 100% 2 lpm Nasal Cannula; ss7 ss7
[2021-06-24] MEDS ORDERED: ALBUTEROL 2.5 MG/3 ML NEB SOL NEB PRN (23:48)
[2021-06-24] MEDS ORDERED: ACETAMINOPHEN 500 MG TAB PO PRN (23:48)
[2021-06-25] MEDS: METHYLPREDNISOLONE 40 MG INJ IV SCH ×3 (00:53→17:39)
[2021-06-25] MEDS: IPRATROPIUM BROM 0.5MG/2.5ML NEB SCH ×4 (01:41→20:35)
[2021-06-25 02:56] VITALS: BMI 35.6
[2021-06-25 03:58] LABS: Absolute Lymphocytes (CBC) 0.2 K/uL (0.7-4.9); Hematocrit 29.6 % (39.6-49.0); Lymphocytes % 2.8 % (15.3-44.8); MPV 10.3 fL (7.6-11.3); RBC Red Blood Cell Count 3.05 M/uL (4.33-5.43)
[2021-06-25 04:17] LABS: Potassium 5.9 mmol/L (3.5-5.1)
[2021-06-25] MEDS: ARFORMOTEROL TARTRATE 15 MCG/2 ML VIAL.NEB NEB SCH ×2 (07:41→20:35)
[2021-06-25] MEDS ORDERED: SOD POLYSTYREN SUL 15 GM/60 ML UCUP PO ONE ×2 (08:00→10:00)
[2021-06-25] MEDS: OSELTAMIVIR PHOSPHATE 30 MG/5 ML SUSPENSION UD PO SCH (08:47)
[2021-06-25] MEDS: allopurinoL 300 MG TAB PO SCH (08:48)
[2021-06-25] MEDS: DUTASTERIDE 0.5 MG GEL CAP PO SCH (08:48)
[2021-06-25] MEDS: PANTOPRAZOLE 40MG TABLET PO SCH (08:48)
[2021-06-25] MEDS: TAMSULOSIN 0.4 MG SR CAP PO SCH (08:48)
[2021-06-25] MEDS: CLOPIDOGREL 75 MG TABLET PO SCH (08:48)
[2021-06-25] MEDS: DULOXETINE 30 MG CAP PO SCH (08:48)
[2021-06-25] MEDS ORDERED: METOPROLOL XL 25 MG TAB PO SCH (09:00)
[2021-06-25] MEDS ORDERED: OSELTAMIVIR PHOSPHATE 30 MG/5 ML SUSPENSION UD PO ONE (09:00)
[2021-06-25] MEDS: HOME MED 1 EA UNK (Fluticasone/Umeclidin/Vilanter [Trelegy Ellipta 100-62.5-25] Blst.W.Dev IH SCH (09:00)
[2021-06-25] MEDS ORDERED: OSELTAMIVIR 75 MG CAP PO SCH (09:00)
[2021-06-25] MEDS ORDERED: HEPARIN 5000 UNIT/ML 1 ML VIAL SQ SCH (09:00)
[2021-06-25] MEDS ORDERED: INFLUENZA VACCINE (for 6+ mo) 0.5 ML DOSE IMVAC ONE (09:00)
[2021-06-25] MEDS: FENOFIBRIC ACID 45 MG PO SCH (09:00)
--- NOTE | 2021-06-25 09:18 | P.HP ---
Certification for Inpatient Patient admitted to: Inpatient With expected LOS: >2 Midnights Practitioner: I am a practitioner with admitting privileges, knowledge of patient current condition, hospital course, and medical plan of care. Services: Services provided to patient in accordance with Admission requirements found in Title 42 Section 412.3 of the Code of Federal Regulations Patient History Date of Service: 06/25/21 Reason for admission: DYSPNEA History of Present Illness: DYSPNEA. COUGH. HE IS HEAVY SMOKER AND WANTS TO SMOKE. DOES NOT WANT TO QUIT COMES WITH DYSPNEA, COPD EXACERBATION. HE EATS A LOT OF FRUIT AND WILL QUIT HE HAS HIGH K TODAY. Allergies niacin [From Niaspan Extended-Release] Allergy (Mild, Verified 11/30/13 13:58) Nausea/Vomiting paroxetine HCl [From Paxil] Allergy (Mild, Verified 09/02/11 23:48) Itching/Hives/Rash atorvastatin calcium [From Lipitor] Adverse Reaction (Intermediate, Verified 11/30/13 13:57) Muscle weakness paper tape Adverse Reaction (Uncoded 06/30/12 15:32) Rash Home Medications: Fenofibric Acid (Choline) [Trilipix] 135 mg PO DAILY 09/12/11 Clopidogrel Bisulfate [Plavix*] 75 mg PO DAILY 06/30/12 Tamsulosin [Flomax*] 0.4 mg PO DAILY 06/30/12 allopurinoL [Allopurinol] 300 mg PO DAILY 11/30/13 Pantoprazole Sodium [Protonix] 1 tab PO DAILY 12/02/13 Aspirin 325 mg PO DAILY 11/03/17 Rosuvastatin [Crestor*] 20 mg PO BEDTIME 11/03/17 Albuterol Inhaler [Ventolin Inhaler*] 2 puff IH Q6H PRN 07/23/18 Duloxetine [Cymbalta *] 60 mg PO DAILY 07/23/18 Fluticasone/Umeclidin/Vilanter [Trelegy Ellipta 100-62.5-25] 1 each IH DAILY 07/23/18 Albuterol Neb [Proventil 0.083% Neb Soln] 1 unit IH Q6HP PRN 06/25/21 Arformoterol Tartrate [Brovana] 1 unit IH BID 06/25/21 Dutasteride [Avodart*] 1 tab PO DAILY 06/25/21 Metoprolol Succinate [Toprol Xl] 25 mg PO DAILY 06/25/21 - Past Medical/Surgical History Has patient received pneumonia vaccine in the past: Yes Diabetic: No -: HTN -: Gout -: Ley's Cyst -: Prostate CA -: Kidney dx -: Cardiac cath x2 w/stent placement -: R illiac & coronary stents - Social History Smoking Status: Current every day smoker Alcohol use: Yes CD- Drugs: No Caffeine use: Yes Place of Residence: Home Review of Systems 10-point ROS is otherwise unremarkable General: Weakness, Malaise Respiratory: Cough, Shortness of Breath Physical Examination - Vital Signs Temperature: 97.1 F Blood Pressure: 161/65 Pulse: 60 Respirations: 20 Pulse Ox (%): 94 - Physical Exam General: Mild distress, Moderate distress, Obese HEENT: Atraumatic, PERRLA, Mucous membr. moist/pink, EOMI, Sclerae nonicteric Neck: Supple, 2+ carotid pulse no bruit, No LAD, Without JVD or thyroid abnormality Respiratory: Diminished Cardiovascular: Regular rate/rhythm, Normal S1 S2 Gastrointestinal: Normal bowel sounds, No tenderness Musculoskeletal: No tenderness Integumentary: No rashes Neurological: Normal gait, Normal speech, Normal strength at 5/5 x4 extr, Normal tone, Normal affect Lymphatics: No axilla or inguinal lymphadenopathy - Studies Laboratory Data (last 24 hrs) 06/24/21 16:15: WBC 9.80, Hgb 11.2 L, Hct 33.9 L, Plt Count 89 L 06/24/21 16:15: Sodium 144, Potassium 5.3 H, BUN 64 H, Creatinine 2.78 H, Glucose 103, Magnesium 1.3 L* D Assessment and Plan - Problems (Diagnosis) (1) Hyperkalemia Current Visit: Yes Status: Acute Plan: KAYEXLATE ONCE RECHECK LAB DR CARLOS CONSULTED. INSULIN, D50 ETC PER HER. I ASKED FRANKY TO CALL HER. (2) Acute on chronic renal failure Current Visit: Yes Status: Chronic Plan: IV FLUIDS (3) COPD (chronic obstructive pulmonary disease) Onset Date: 11/04/17 Current Visit: No Status: Chronic Plan: SEVERE COPD CONTINUES TO SMOKE DOES NOT WANT TO QUIT. HE SAYS I WILL LIVE UNTIL I . IV STEROIDS NEBS. Qualifiers: COPD type: COPD with acute exacerbation Qualified Code(s): J44.1 - Chronic obstructive pulmonary disease with (acute) exacerbation - Advance Directives Does patient have a Living Will: No Does patient have a Durable POA for Healthcare: No
[2021-06-25] MEDS ORDERED: GLUCAGON 1 MG/VIAL IM PRN (09:29)
[2021-06-25] MEDS ORDERED: INSULIN -REGULAR HUMAN 50 UNIT/0.5 ML ML IV ONE (09:45)
[2021-06-25] MEDS ORDERED: NA CHLORIDE 0.9% 300 ML IV ONE (10:00)
[2021-06-25] MEDS ORDERED: FUROSEMIDE 40 MG/4 ML VIAL IV ONE (10:00)
[2021-06-25] MEDS ORDERED: D10W 250 ML BAG IV ONE (10:00)
[2021-06-25] MEDS: NACHLORIDE 0.45% 1,000 ML IV SCH ×2 (10:06→20:20)
[2021-06-25] MEDS: SODIUM BICARB 325 MG TAB PO SCH ×3 (10:06→20:22)
[2021-06-25] MEDS ORDERED: D10W 250 ML BAG IV PRN (10:09)
[2021-06-25] MEDS: ALBUTEROL INHALER 60 PUFF/8 GM IH SCH ×2 (10:20→14:00)
[2021-06-25 12:54] LABS: Potassium 4.9 mmol/L (3.5-5.1)
[2021-06-25] MEDS ORDERED: METOPROLOL XL 25 MG TAB PO ONE (18:06)
[2021-06-25 19:45] LABS: Potassium 4.1 mmol/L (3.5-5.1)
[2021-06-25] MEDS: APIXABAN 5 MG TABLET PO SCH (20:22)
[2021-06-25] MEDS: ROSUVASTATIN 10 MG TAB PO SCH (20:22)
--- NOTE | 2021-06-26 00:52 | CON ---
Date of Consultation: 06/25/2021 Chief Complaint: Acute on chronic kidney injury associated with hyperkalemia. The patient has nonol iguric urine output. History Of Present Illness: The patient presented to the hospital because of shortness of breath. Vignesh molina has a history COPD. He has chronic cough. He is a heavy smoker and active smoker. He denies lowe r urinary tract symptoms. Past Medical History: The patient has multiple medical problems including hypertension, hyperlipidem ia, gout, coronary artery disease, congestive heart failure, cardiac catheterization, prostate cancer , , peripheral vascular disease. Social History: Current everyday smoker. Denies alcohol or drugs. Physical Examination: General: The patient is awake and alert, follows commands. Eyes: Anicteric sclerae. EOMI. Ears, Nose, Mouth, and Throat: Oral mucosa moist. No pallor. Neck: Supple. No bruits. Lungs: Diminished breath sounds at the bases. Heart: S1 and S2. Abdomen: Soft, benign. Extremities: Edema present in both ankles. Laboratory Data: WBC 9.8, hemoglobin 11.2, hematocrit 33.9, platelet count 89. Sodium 144, potassiu m 5.3, creatinine 2.79, glucose 103, magnesium 1.3. Impression And Plan: 1.Acute on chronic kidney injury. The patient has multiple medical problems including chronic obstr uctive pulmonary disease exacerbation, peripheral vascular disease, active smoker, history of small b owel obstruction. He was complaining of some cough and shortness of breath. Denies abdominal pain, nausea, vomiting, melena, or hematemesis. The patient was found to have hyperkalemia . Th e patient has borderline metabolic acidosis. He was treated with sodium bicarbonate tablet. He rece ived albuterol IV, dextrose, and IV insulin. For hyperkalemia, the patient received Kayexalate and l ab work was obtained to evaluate potassium level. 2.The patient has chronic obstructive pulmonary disease. Continue inhaler and prevent fluid overloa d. The patient may benefit from Lasix as needed. 3.Hyperuricemia. Continue gout management as before. The patient currently is asymptomatic. 4.Hypertension. Blood pressure controlled. Monitor blood pressure. Continue current medication. EB/MODL Voice ID: [id number] Report ID: [id number]
[2021-06-26] MEDS: METHYLPREDNISOLONE 40 MG INJ IV SCH ×2 (01:00→10:21)
[2021-06-26] MEDS: IPRATROPIUM BROM 0.5MG/2.5ML NEB SCH ×4 (01:50→20:44)
[2021-06-26 03:47] LABS: Absolute Lymphocytes (CBC) 0.3 K/uL (0.7-4.9); Hematocrit 29.2 % (39.6-49.0); Lymphocytes % 3.5 % (15.3-44.8); MPV 9.6 fL (7.6-11.3); RBC Red Blood Cell Count 3.01 M/uL (4.33-5.43)
[2021-06-26 04:08] LABS: Potassium 4.1 mmol/L (3.5-5.1)
[2021-06-26 04:17] LABS: Magnesium 1.4 mg/dL (1.8-2.4)
[2021-06-26] MEDS ORDERED: Magnesium Sulfate 2gm IVPB 2 G/50 ML BAG IV ONE (04:32)
--- NOTE | 2021-06-26 08:22 | EKG ---
Test Date: 2021-06-24 Test Time: 15:57:34 [employer] Driver: LOLA MEASUREMENT RESULTS: Intervals: Rate: 77 TX: 132 QRSD: 86 QT: 364 QTc: 411 Beals: P: 34 TX: 132 QRS: 69 T: 76 INTERPRETIVE STATEMENTS: Sinus rhythm with premature atrial complexes Otherwise normal ECG Compared to ECG 07/23/2018 18:03:41 Atrial premature complex(es) now present Electronically Signed On 06-26-21 08:20:03 CDT by Ramón Epps
--- NOTE | 2021-06-26 08:26 | RAD REPORT ---
EXAM DESCRIPTION: US - Renal Ultrasound-Complete - 06/26/2021 6:15 am CLINICAL HISTORY: Acute renal failure/chronic renal disease COMPARISON: 2019 FINDINGS: The right kidney measures 11 cm with an increased echotexture. 5.2 centimeter cystic The left kidney measures 12 cm with an increased echotexture. A 9,3 centimeter cyst containing septat ion. 8.5 centimeter cyst Additional bilateral renal cysts Hydronephrosis is not seen. No gross abnormality of bladder is seen IMPRESSION: Increased renal echotexture consistent with parenchymal disease Bilateral renal cysts
[2021-06-26] MEDS: FENOFIBRIC ACID 45 MG PO SCH (09:00)
[2021-06-26] MEDS: OSELTAMIVIR PHOSPHATE 30 MG/5 ML SUSPENSION UD PO SCH ×2 (09:00→11:27)
[2021-06-26] MEDS: HOME MED 1 EA UNK (Fluticasone/Umeclidin/Vilanter [Trelegy Ellipta 100-62.5-25] Blst.W.Dev IH SCH (09:00)
[2021-06-26] MEDS: ARFORMOTEROL TARTRATE 15 MCG/2 ML VIAL.NEB NEB SCH ×2 (09:24→20:44)
[2021-06-26] MEDS: NACHLORIDE 0.45% 1,000 ML IV SCH (09:40)
[2021-06-26] MEDS ORDERED: FUROSEMIDE 40 MG/4 ML VIAL IV SCH (10:00)
[2021-06-26] MEDS ORDERED: levoFLOXacin 500 MG TAB PO ONE (10:00)
[2021-06-26] MEDS: SODIUM BICARB 325 MG TAB PO SCH ×3 (10:22→21:55)
[2021-06-26] MEDS: CLOPIDOGREL 75 MG TABLET PO SCH (10:23)
[2021-06-26] MEDS: METOPROLOL XL 50 MG TAB PO SCH (10:23)
[2021-06-26] MEDS: APIXABAN 5 MG TABLET PO SCH ×2 (10:23→21:20)
[2021-06-26] MEDS: DULOXETINE 30 MG CAP PO SCH (10:23)
[2021-06-26] MEDS: DUTASTERIDE 0.5 MG GEL CAP PO SCH (10:24)
[2021-06-26] MEDS: allopurinoL 300 MG TAB PO SCH (10:24)
[2021-06-26] MEDS: PANTOPRAZOLE 40MG TABLET PO SCH (10:24)
[2021-06-26] MEDS: TAMSULOSIN 0.4 MG SR CAP PO SCH (10:24)
--- NOTE | 2021-06-26 12:12 | P.CNS ---
Date of Consult: 06/26/21 Reason for Consult: COPD exacerbation Chief Complaint: DYSPNEA History of Present Illness: Patient is 76 years of age has been sick for about 3 weeks came in complaining of increasing shortness of breath cough congestion and swelling active smoker history of sleep apnea compliant with therapy using any inhalers at home adductive cough chronic renal insufficiency Allergies niacin [From Niaspan Extended-Release] Allergy (Mild, Verified 11/30/13 13:58) Nausea/Vomiting paroxetine HCl [From Paxil] Allergy (Mild, Verified 09/02/11 23:48) Itching/Hives/Rash atorvastatin calcium [From Lipitor] Adverse Reaction (Intermediate, Verified 11/30/13 13:57) Muscle weakness paper tape Adverse Reaction (Uncoded 06/30/12 15:32) Rash Home Medications: Fenofibric Acid (Choline) [Trilipix] 135 mg PO DAILY 09/12/11 Clopidogrel Bisulfate [Plavix*] 75 mg PO DAILY 06/30/12 Tamsulosin [Flomax*] 0.4 mg PO DAILY 06/30/12 allopurinoL [Allopurinol] 300 mg PO DAILY 11/30/13 Pantoprazole Sodium [Protonix] 1 tab PO DAILY 12/02/13 Aspirin 325 mg PO DAILY 11/03/17 Rosuvastatin [Crestor*] 20 mg PO BEDTIME 11/03/17 Albuterol Inhaler [Ventolin Inhaler*] 2 puff IH Q6H PRN 07/23/18 Duloxetine [Cymbalta *] 60 mg PO DAILY 07/23/18 Fluticasone/Umeclidin/Vilanter [Trelegy Ellipta 100-62.5-25] 1 each IH DAILY 07/23/18 Albuterol Neb [Proventil 0.083% Neb Soln] 1 unit IH Q6HP PRN 06/25/21 Arformoterol Tartrate [Brovana] 1 unit IH BID 06/25/21 Dutasteride [Avodart*] 1 tab PO DAILY 06/25/21 Metoprolol Succinate [Toprol Xl] 25 mg PO DAILY 06/25/21 - Past Medical/Surgical History Diabetic: No -: HTN -: Gout -: Ley's Cyst -: Prostate CA -: Kidney dx -: Cardiac cath x2 w/stent placement -: R illiac & coronary stents - Social History Smoking Status: Current every day smoker Alcohol use: Yes CD- Drugs: No Caffeine use: Yes Place of Residence: Home Review of Systems 10-point ROS is otherwise unremarkable General: Weakness Respiratory: Cough, Shortness of Breath Physical Examination Temp Pulse Resp BP Pulse Ox 97.3 F 57 24 H 146/63 H 96 06/26/21 08:00 06/26/21 10:34 06/26/21 08:00 06/26/21 10:34 06/26/21 08:00 General: Alert, Moderate distress Respiratory: Expiratory wheezes Cardiovascular: Regular rate/rhythm, Normal S1 S2, Edema Gastrointestinal: Normal bowel sounds, Soft and benign - Problems (1) COPD exacerbation Current Visit: Yes Status: Acute Plan: Patient is 76 years of age he has not been feeling good for the past 3 weeks continues to smoke history of sleep apnea currently uses trilogy and Brovana at home patient has chronic renal failure patient is mildly anemic oxygenation satisfactory arterial blood gases ordered pending chest x-ray abnormal he has right lower lobe changes possible pneumonia vital signs reviewed given him 1 dose of 80 mg Lasix sputum cultures add levofloxacin patient is fully anticoagulated nephrology consult changed to p.o. prednisone
--- NOTE | 2021-06-26 13:21 | P.PN ---
Subjective Date of Service: 06/26/21 Chief Complaint: DYSPNEA Subjective: Improving MR NINO IS COPD AND CAD PATIENT WHO CONTINUES TO SMOKE. HE IS BETTER WITH MEDS. HE AND NOW PROMISE TO QUIT SMOKING. I AM NOT SURE HOW LONG THAT WILL LAST. HE IS BREATHING BETTER BUT STILL WEAK. Review of Systems 10-point ROS is otherwise unremarkable General: Weakness, Malaise Respiratory: Shortness of Breath Physical Examination - Vital Signs Temperature: 97.3 F Blood Pressure: 146/63 Pulse: 57 Respirations: 24 Pulse Ox (%): 96 - Physical Exam General: Moderate distress, Obese HEENT: Atraumatic, PERRLA, EOMI Neck: Supple, JVD not distended Respiratory: Diminished, Rhonchi/gurgles Cardiovascular: Regular rate/rhythm, Normal S1 S2 Gastrointestinal: Normal bowel sounds, No tenderness Musculoskeletal: No tenderness Integumentary: No rashes Neurological: Normal speech, Normal tone, Normal affect Lymphatics: No axilla or inguinal lymphadenopathy - Studies Medications List Reviewed: Yes Assessment And Plan - Current Problems (Diagnosis) (1) Hyperkalemia Current Visit: Yes Status: Acute Plan: KAYEXLATE ONCE RECHECK LAB DR CARLOS CONSULTED. INSULIN, D50 ETC PER HER. I ASKED FRANKY TO CALL HER. (2) Acute on chronic renal failure Current Visit: Yes Status: Chronic Plan: IV FLUIDS (3) COPD (chronic obstructive pulmonary disease) Onset Date: 11/04/17 Current Visit: No Status: Chronic Plan: SEVERE COPD CONTINUES TO SMOKE DOES NOT WANT TO QUIT. HE SAYS I WILL LIVE UNTIL I . IV STEROIDS NEBS. CONT MEDS. FU IN AM DC MAY BE IN AM. Qualifiers: COPD type: COPD with acute exacerbation Qualified Code(s): J44.1 - Chronic obstructive pulmonary disease with (acute) exacerbation
[2021-06-26 13:52] LABS: Blood Gas Oxyhemoglobin 94.5 % (94-97); Blood O2 Saturation 96.8 % (92-98.5)
[2021-06-26] MEDS: ROSUVASTATIN 10 MG TAB PO SCH (21:18)
[2021-06-26] MEDS: predniSONE 20 MG TAB PO SCH (21:18)
[2021-06-27] MEDS: IPRATROPIUM BROM 0.5MG/2.5ML NEB SCH ×3 (02:05→14:00)
[2021-06-27 03:52] LABS: Absolute Lymphocytes (CBC) 0.3 K/uL (0.7-4.9); Hematocrit 28.5 % (39.6-49.0); Lymphocytes % 3.7 % (15.3-44.8); MPV 10.2 fL (7.6-11.3); RBC Red Blood Cell Count 2.96 M/uL (4.33-5.43)
[2021-06-27 04:08] LABS: Potassium 3.3 mmol/L (3.5-5.1)
--- NOTE | 2021-06-27 08:03 | P.PN ---
Subjective Date of Service: 06/27/21 Chief Complaint: DYSPNEA Subjective: No new changes Physical Examination - Vital Signs Temperature: 97.2 F Blood Pressure: 153/64 Pulse: 62 Respirations: 18 Pulse Ox (%): 97 - Physical Exam General: Other (appears as his stated age) HEENT: Atraumatic, Normocephalic Neck: Supple, JVD not distended Respiratory: Other (symmetric chest expansion) Cardiovascular: No rubs, No murmurs Gastrointestinal: Soft and benign, No guarding Musculoskeletal: No clubbing Integumentary: No warmth Neurological: Normal speech, Normal tone Urinary: Other (no bladder distention) External genitalia: Deferred Rectal: Deferred - Studies Medications List Reviewed: Yes Assessment And Plan - Plan 1. Acute on chronic kidney injury 2/2 prerenal state/ATN. [place] po fluid intake. 2. HypoCa. Ca IV repletion today. Replete Mg. F/u Phos, iPTH, 25OHD. 3. COPD exacerbation. Steroids, inhalers, empiric abx. 4. Hyperuricemia. Continue gout management as before. The patient currently is asymptomatic. 5. Hypertension. BP above goal. Start amlodipine 5 mg by mouth daily. Continue Toprol-XL. 6. HypoK. KCl po repletion today.
[2021-06-27] MEDS ORDERED: MAGNESIUM SULFATE 1 gm IVPB 1 GM/100 ML BAG IV ONE (08:12)
[2021-06-27] MEDS ORDERED: POTASSIUM CL SA 10 MEQ TAB PO SCH (09:00)
[2021-06-27] MEDS: HOME MED 1 EA UNK (Fluticasone/Umeclidin/Vilanter [Trelegy Ellipta 100-62.5-25] Blst.W.Dev IH SCH (09:00)
[2021-06-27] MEDS: FENOFIBRIC ACID 45 MG PO SCH (09:00)
[2021-06-27] MEDS ORDERED: levoFLOXacin 500 MG TAB PO SCH (09:00)
[2021-06-27] MEDS: DULOXETINE 30 MG CAP PO SCH (09:50)
[2021-06-27] MEDS: predniSONE 20 MG TAB PO SCH (09:51)
[2021-06-27] MEDS: SODIUM BICARB 325 MG TAB PO SCH ×2 (09:51→15:21)
[2021-06-27] MEDS: PANTOPRAZOLE 40MG TABLET PO SCH (09:52)
[2021-06-27] MEDS: APIXABAN 5 MG TABLET PO SCH (09:52)
[2021-06-27] MEDS: DUTASTERIDE 0.5 MG GEL CAP PO SCH (09:52)
[2021-06-27] MEDS: TAMSULOSIN 0.4 MG SR CAP PO SCH (09:52)
[2021-06-27] MEDS: METOPROLOL XL 50 MG TAB PO SCH (09:54)
[2021-06-27] MEDS: CLOPIDOGREL 75 MG TABLET PO SCH (09:55)
[2021-06-27] MEDS: allopurinoL 300 MG TAB PO SCH (09:55)
[2021-06-27] MEDS: OSELTAMIVIR PHOSPHATE 30 MG/5 ML SUSPENSION UD PO SCH (09:56)
[2021-06-27] MEDS: ARFORMOTEROL TARTRATE 15 MCG/2 ML VIAL.NEB NEB SCH (10:33)
[2021-06-27 11:08] VITALS: O2SAT 87
--- NOTE | 2021-06-27 13:16 | ECHO ---
HEIGHT: 5 ft 10 in WEIGHT: 248 lb 4.8 oz DATE OF STUDY: 06/27/[address]: Teo Park MD 2-DIMENSIONAL: YES M.MODE: YES DOPPLER: YES COLOR FLOW: YES TDS: YES PORTABLE: NO DEFINITY: NO BUBBLE STUDY: NO DIAGNOSIS: RESPIRATORY FAILURE CARDIAC HISTORY: CATHERIZATION: YES SURGERY: NO PROSTHETIC VALVE: NO PACEMAKER: NO MEASUREMENTS (cm) DIASTOLIC (NORMALS) SYSTOLIC (NORMALS) IVSd 1.1 (0.6-1.2) LA Diam 3.5 (1.9-4.0) LVEF 58% LVIDd 5.0 (3.5-5.7) LVIDs 3.4 (2.0-3.5) %FS 31% LVPWd 1.3 (0.6-1.2) Ao Diam 2.6 (2.0-3.7) 2 DIMENSIONAL ASSESSMENT: RIGHT ATRIUM: NORMAL LEFT ATRIUM: NORMAL RIGHT VENTRICLE: NORMAL LEFT VENTRICLE: NORMAL TRICUSPID VALVE: NORMAL MITRAL VALVE: NORMAL PULMONIC VALVE: NORMAL AORTIC VALVE: NORMAL PERICARDIAL EFFUSION: NONE AORTIC ROOT: NORMAL LEFT VENTRICULAR WALL MOTION: NORMAL. DOPPLER/COLOR FLOW: NORMAL. COMMENTS: NORMAL 2D ECHO WITH DOPPLER. MILD TRICUSPID REGURGITATION - NORMAL RIGHT VENTRICULAR SYSTOLIC PRESSURE. TECHNOLOGIST: UNA MARIA
--- NOTE | 2021-06-27 13:31 | PN ---
Date of Progress Note: 06/26/2021 Chief Complaint: [id number] kidney injury associated with hyperkalemia. The patient has nonol iguric urine output. He underwent renal ultrasound to rule out obstructive uropathy. History Of Present Illness: The patient presented to the hospital because of shortness of breath. Vignesh molina has history of COPD. He is a heavy smoker and active smoker. He has chronic cough. He denies low er urinary tract symptoms. The patient has multiple medical problems including hypertension, hyperli pidemia, gout, coronary artery disease, congestive heart failure. He underwent cardiac catheterizati on before. He has also history of prostate cancer, peripheral vascular disease. Review of Systems: The patient denies complaints. Physical Examination: Lungs: Clear to auscultation bilaterally. Heart: S1 and S2. Abdomen: Soft, benign. Extremities: Slight edema. Impression And Plan: 1.[id number] kidney injury. Avoid nephrotoxic medication. The patient is not a candidate for IV fluids due to history of congestive heart failure. Continue p.o. fluid intake for hydration. 2.Hyperkalemia, severe. The patient was treated with sodium bicarbonate tablet, IV dextrose, and IV insulin, albuterol inhaler, and Kayexalate. Continue low-potassium diet. The patient may need Lo lma for outpatient management. 3.Chronic obstructive pulmonary disease. Continue inhalers. 4.Congestive heart failure, cardiorenal syndrome. Continue Lasix for volume control. 5.Hyperuricemia. Diet with low purine diet and allopurinol for prevention of gout recommended. 6.Hypertension. Continue blood pressure medication. GUMARO/WILLIAM Voice ID: [id number] Report ID: [id number]
[2021-06-27] MEDS ORDERED: AMLODIPINE 5 MG TAB PO SCH (14:00)
[2021-06-27] MEDS ORDERED: CALCIUM GLUC 10% INJ 9.3 MEQ in NA CHLORIDE 0.9% 100 ML IV ONE (14:00)
[2021-06-27 14:22] LABS: Urine Appearance Clear (Clear); Urine Bilirubin Negative (Negative); Urine Blood 2+ (Negative); Urine Color Yellow (Yellow); Urine Glucose Trace (Negative); Urine Protein 3+ (Negative); Urine Specific Gravity 1.025 (1.005-1.030); Urine Urobilinogen 0.2 mg/dL (0.2-1.0)
[2021-06-27 14:24] LABS: Urine Microscopic Reflex ORDER UMIC
[2021-06-27 14:32] LABS: Urine Bacteria NONE SEEN /HPF (NONE SEEN)
[2021-06-28 06:14] VITALS: BP 153/64; TEMP 97.2
== END 2021-06-27 18:30 | disposition home or self-care (01) | DRG 190 ==
LOC: ER 15:52 → ERHOLD 21:37 → 4TH 23:34
PROVIDERS: ADMIT Internal Medicine; ATTEND Internal Medicine
DX: J44.1 Chronic obstructive pulmonary disease with (acute) exacerbation (principal); J09.X1 Influenza due to identified novel influenza A virus with pneumonia; J12.9 Viral pneumonia, unspecified; N17.9 Acute kidney failure, unspecified; E87.2 Acidosis; I13.0 Hypertensive heart and chronic kidney disease with heart failure and stage 1 through stage 4 chronic kidney disease, or unspecified chronic kidney disease; I50.9 Heart failure, unspecified; N18.30 Chronic kidney disease, stage 3 unspecified; J44.0 Chronic obstructive pulmonary disease with (acute) lower respiratory infection; M10.9 Gout, unspecified; I25.10 Atherosclerotic heart disease of native coronary artery without angina pectoris; E87.5 Hyperkalemia; E83.51 Hypocalcemia; I73.9 Peripheral vascular disease, unspecified; F17.210 Nicotine dependence, cigarettes, uncomplicated; Z88.1 Allergy status to other antibiotic agents; Z88.8 Allergy status to other drugs, medicaments and biological substances; Z91.048 Other nonmedicinal substance allergy status; Z79.82 Long term (current) use of aspirin; Z95.5 Presence of coronary angioplasty implant and graft; Z79.02 Long term (current) use of antithrombotics/antiplatelets; Z79.899 Other long term (current) drug therapy; Z85.46 Personal history of malignant neoplasm of prostate; Z20.822 Contact with and (suspected) exposure to COVID-19
CPT/HCPCS: 0240U; 36415; 71045; 76770; 80048; 81003; 81015; 82306; 82805; 82947; 83735; 85025; 87070; 87077; 87186; 87205; 93005; 93306; 94640; 94760; 96374; 96375; 97116; 97161; 97530; 99285; J0610; J1940; J2920; J2930; J3475; J7040; J7512; J7605

== ENCOUNTER 2021-11-06 18:04 | Inpatient (IN) | payer OTHER ==
--- NOTE | 2021-11-06 19:39 | RAD REPORT ---
EXAM DESCRIPTION: RAD - Chest Single View - 11/06/2021 7:27 pm CLINICAL HISTORY: COVID Chest pain. COMPARISON: Chest Single View dated 06/24/2021; Chest Pa And Lat (2 Views) dated 07/23/2018; Abdomen 1 View (KUB) dated 12/16/2017; Chest Single View dated 11/03/2017 FINDINGS: Portable technique limits examination quality. Moderate bilateral pulmonary opacities are present, greater in the right lower lung. While some of th is appears chronic, superimposed infection is suspected. The heart is moderately enlarged. No displac ed fractures.
[2021-11-06 20:57] LABS: Absolute Lymphocytes (CBC) 0.6 K/uL (0.7-4.9); Hematocrit 29.3 % (39.6-49.0); Lymphocytes % 10.6 % (15.3-44.8); MCV 94.2 fL (80-100); MPV 9.7 fL (7.6-11.3); RBC Red Blood Cell Count 3.12 M/uL (4.33-5.43)
[2021-11-06 21:11] LABS: Potassium 5.2 mmol/L (3.5-5.1); Troponin High Sensitivity 17.2 pg/mL (<58.9)
[2021-11-06] MEDS ORDERED: LEVALBUTEROL 1.25 MG/3 ML NEB ONE (21:11)
[2021-11-06] MEDS ORDERED: ACETAMINOPHEN 500 MG TAB PO PRN (21:56)
[2021-11-06] MEDS ORDERED: IPRATROPIUM BROM 0.5MG/2.5ML NEB PRN (21:56)
[2021-11-06] MEDS ORDERED: ALBUTEROL 2.5 MG/3 ML NEB SOL NEB PRN (21:56)
[2021-11-06] MEDS ORDERED: ONDANSETRON 4 MG/2 ML VIAL IV PRN (21:56)
[2021-11-06] MEDS ORDERED: ENOXAPARIN 100 MG/ML SYR SQ ONE (23:00)
[2021-11-07 00:20] VITALS: BMI 34.5
[2021-11-07] MEDS: METHYLPREDNISOLONE 40 MG INJ IV SCH ×3 (01:00→16:10)
[2021-11-07] MEDS ORDERED: METHYLPREDNISOLONE 40 MG INJ ONE ×2 (02:15→09:27)
[2021-11-07 02:58] LABS: Absolute Lymphocytes (CBC) 0.8 K/uL (0.7-4.9); Hematocrit 27.7 % (39.6-49.0); Lymphocytes % 14.6 % (15.3-44.8); MCV 94.9 fL (80-100); MPV 9.5 fL (7.6-11.3); RBC Red Blood Cell Count 2.92 M/uL (4.33-5.43)
[2021-11-07 03:18] LABS: Potassium 5.3 mmol/L (3.5-5.1)
--- NOTE | 2021-11-07 08:50 | EKG ---
Test Date: 2021-11-06 Test Time: 20:27:12 Material Combiner: LUKE MEASUREMENT RESULTS: Intervals: Rate: 63 WA: 162 QRSD: 74 QT: 394 QTc: 403 Dixie: P: 64 WA: 162 QRS: 71 T: 84 INTERPRETIVE STATEMENTS: Normal sinus rhythm Normal ECG Compared to ECG 06/24/2021 15:57:34 Atrial premature complex(es) no longer present Electronically Signed On 11-07-21 08:46:55 CDT by Ramón Epps
--- NOTE | 2021-11-07 08:50 | EKG ---
Test Date: 2021-11-06 Test Time: 20:28:05 Mental Retardation Aide: LUKE MEASUREMENT RESULTS: Intervals: Rate: 65 SD: 182 QRSD: 78 QT: 402 QTc: 418 [place]: P: 33 SD: 182 QRS: 70 T: 71 INTERPRETIVE STATEMENTS: Normal sinus rhythm Normal ECG Compared to ECG 11/06/2021 20:27:12 No significant changes Electronically Signed On 11-07-21 08:46:54 CDT by Ramón Epps
--- NOTE | 2021-11-07 08:57 | RAD REPORT ---
EXAM DESCRIPTION: NM - Vent Perfusion VQ Scan - 11/07/2021 8:49 am CLINICAL HISTORY: SOB w/ elevated DD COMPARISON: Portable chest 11/06/2021. TECHNIQUE: Ventilation portion of the examination was not performed due to safety issues on this COV ID positive patient. The patient was administered 6.8 mCi Tc-99m MAA labeled RBCs followed by standar d 8 view protocol. FINDINGS: A few patchy areas of slightly decreased perfusion seen in the lateral mid left lung field and in the mid and lower right lung field. These match areas of lung parenchymal opacification. IMPRESSION: Low probability V/Q scan for pulmonary embolism.
[2021-11-07] MEDS ORDERED: NACHLORIDE 0.45% 1,000 ML IV SCH (09:00)
[2021-11-07] MEDS ORDERED: ASPIRIN EC 81 MG TAB PO SCH (09:00)
[2021-11-07] MEDS ORDERED: ASPIRIN EC 81 MG TAB PO ONE (09:27)
[2021-11-07] MEDS ORDERED: NACHLORIDE 0.45% 1,000 ML IV ONE (09:52)
--- OUTSIDE RECORDS SUMMARY | 2021-11-07 10:59 | XMS REPORT | Continuity of Care Document ---
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 WBC (test code = 6690-2) See_Comment [A utomated message] The system which ge nerated this result transmit connie reference range: 4.20 - 1 0.70 10*3/?L. The reference r joaquin was not used to interpr et this result as normal/abnor mal. RBC (test code = 789-8) See_Comment L [Au tomated message] The system which ge [...] 32.0 g/dL 31.2-35.0 RDW-SD (test code = 63473-7) 56.7 fL 38.5-51.6 H RDW-CV (test code = 788-0) 15.7 % 12.1-15.4 H PLT (test code = 777-3) See_Comment [Au tomated message] The system which ge nerated this result transmit connie reference range: 150 - 32 8 10*3/?L. The reference range was not used to interpret th is result as normal/abnormal . MPV (test code = 38137-2) 10.8 fL 9.8-13.0 NRBC/100 WBC (test code = See_Comment [ Automated message] The [id number]) system which ge nerated this result transmit connie reference range: 0.0 - 10 .0 /100 WBCs. The reference r joaquin was not used to interpr et this result as normal/abnor mal. NRBC x10^3 (test code = <0.01 See_Comment [Au tomated message] The [id number]) system which ge nerated this result transmit connie reference range: 10*3/?L. The reference range was not u sed to interpret this result as normal/abnormal . GRAN MAT (NEUT) % (test code 76.8 % = 770-8) IMM GRAN % (test code = 0.80 % [id number]) LYMPH % (test code = 736-9) 16.0 % MONO % (test code = 5905-5) 5.8 % EOS % (test code = 713-8) 0.0 % BASO % (test code = 706-2) 0.6 % GRAN MAT x10^3(ANC) (test 5.54 10*3/uL 1.99-6.95 code = 0557019216) IMM GRAN x10^3 (test code = 0.06 10*3/uL 0.00-0.06 [id number]) LYMPH x10^3 (test code = 1.15 10*3/uL 1.09-3.23 731-0) MONO x10^3 (test code = 0.42 10*3/uL 0.36-1.02 742-7) EOS x10^3 (test code = <0.03 0.06-0.53 L 711-2) BASO x10^3 (test code = 0.04 10*3/uL 0.01-0.09 704-7) Lab Interpretation (test Abnormal code = 35027-2) [id number] 12:20:00Addendum BeginsREPORT STATUS:A Addendum: I have reviewed the nonvascular features of this examination concur with Dr. Stewart's report. There is been interval growth in the size of the largest cyst in the left kidney from 5.7 to 8.1 cm. The other renal lesions are unchanged in sizeand configuration. Signed: Mehdi Boone MDReport Verified Date/Time: 10/22/2018 12:20:45 Reading Location: [place] [address] Angio Body Reading RoomAddendum EndsFINAL REPORT CT of the abdomen and pelvis, without contrast, Oct 24 INDICATION: This is a 73 year old male with history ofabdominal aortic aneurysm status post endovascular exclusion. Patient presents for followup evaluation. TECHNIQUE: Spiral acquisition was performed with mild intravenous contrast administration using aGE multidetector scanner. Multi-planar 3-D volume- rendering reconstruction was performed using an independent workstation. [...] and the right. Prior addendum by the Try Out Person Radiologist, the calcification could be related to asbestos exposure in the past. In the noncontrast data set, the liver and spleen appears unremarkable. The liver edge is smooth. Patient is post cholecystectomy. The pancreas appears unremarkable. T iny focal calcification is seen near the head [...] 95, that measures 7.9 x 6.6 cm indiameter. There are also small hyperdense cysts identified. Tissue characterization is incomplete with out contrast administration. However, by visual estimation, no interval change is seen when compared to prior examination. Renal vascular calcification is identified in both renal pelvis. There is likely some nonspecific stranding present adjacent to both kidneys, no difference to prior examination.Bowel is not well assessed by CT angiography as enteric contrast is not given. No obvious bowel dilation identified. Scattered colonic diverticular disease is seen. Small bilateral fat- containing inguinal hernia is seen. No free air or free fluid seen abdomen and pelvis. There is no significant retroperitoneal adenopathy. Small lymph is are seen in both groins, a nonspecific finding. The prostate gland is mildly prominent. The bladder appears unremarkable. Once again of note, surgical clips are seenin the right groin. No acute bony pathology is seen. Tiny sclerotic foci are identified in the rightand left femoral likely represent bone islands, stable when compared to prior examination. CONCLUSIONS: 1. Patient is post endostent placement in the abdominal aorta. It appears to be well positioned. A ssessment is incomplete without contrast administration. Quantitative dimensions as described above.The aortic volume measurement in inferior to the [...] dictated regarding the non-vascular findings by the [employer] Out Person Radiologists. Signed: Fausto Stewart Verified Date/Time: 10/22/2018 10:10:53 Reading Location: [place] [address] Cardiology MRI
--- NOTE | 2021-11-07 13:30 | CON ---
Date of Consultation: 11/07/2021 Reason For Consultation: Elevated BUN and creatinine. History Of Present Illness: This is a pleasant 76-year-old gentleman. All the information has been taken from the family by bedside as the patient is sleeping. This is a 76-year-old gentleman with significant past medical history of CAD, PAD, hypertension, COPD, chronic kidney disease with baseline creatinine 2.9 and GFR 21 as of June 2021, prostate hypertrophy, used to follow up with Dr. Jackson, the patient was in his regular state of health. According to the family, the patient had COVID 2 weeks ago, recovered, but continued to have poor intake without any nausea, any vomiting, any other GI symptoms. The patient's condition gradually deteriorated with fatigue. For that reason, he was brought to the hospital. Upon arrival to the hospital, found to have marginal hyperkalemia with potassium 5.3, acidosis, and elevation in BUN and creatinine, creatinine 3.3 with GFR of 18. As I mentioned back in June 2021; creatinine 2.9, GFR 21. The patient denied taking any nonsteroidal. No recent change in his medication. Past Medical History: Includes; 1. COPD. 2. Hypertension. 3. Hyperlipidemia. 4. CAD. 5. PAD. 6. Chronic kidney disease, stage 4. Baseline creatinine 2.9, GFR of 21 as of June 2021. 7. Gout. 8. Obstructive uropathy, prostate cancer. Follows up with Dr. Jackson. Home Medications: Include; 1. Allopurinol. 2. Flomax. 3. Rosuvastatin. 4. Lyrica. 5. Pantoprazole. 6. Avodart. 7. Cymbalta. 8. Plavix. 9. Albuterol. Current Medications: The patient on include aspirin, Tylenol, Zofran, Solu- Medrol, IV fluid at 50. Allergies: TO NIACIN, PAROXETINE, ATORVASTATIN, PAPER TAPE. Past Surgical History: Includes; 1. Angioplasty. 2. Surgical fem-pop. 3. PTCA back in 2011. Family History: Positive for hypertension. Social History: Heavy smoker. Review of Systems: Head and Neck: No red eye. No ear pain. GI: Decreased intake. : No polyuria. No dysuria. No hematuria. Paint Spray Inspector: Not applicable. Respiratory: No shortness of breath. Has COVID recently. Cardiovascular: No chest pain. Endocrine: No polydipsia. Skin: No rash. Neuro: Generalized fatigue. Musculoskeletal: Generalized weakness. Physical Examination: Vital Signs: When I saw the patient; blood pressure of 131/45, pulse of 64, afebrile. Chest: Clear to auscultation. Heart: S1, S2. Regular. Abdomen: Soft, nontender. Extremity: No edema. Neuro: The patient is sleepy. Moving 4 extremities. No focality. Laboratory Data: Back in June 2021; creatinine 2.9, GFR 21. Today's lab data; sodium 142, potassium 5.3, bicarb 17, BUN 64, creatinine 3.2, GFR of 19, calcium 8.4. WBC 5.2, H and H 9.4/27.7. Urinalysis negative for infection. Assessment And Plan: 1. Chronic kidney disease, stage 4, normal size kidney 02/17 as of ultrasound done in June with renal cyst 9 cm with septation on the left side and other one 8.5 cm. Looked to me on the dry side. I am going to continue current hydration. Hold all blood pressure medications. I am going to go ahead and send for PTH, PC ratio to complete the chronicity workup for the patient and we will follow up. 2. Hypertension, currently blood pressure controlled. The patient has poor intake. Hold all blood pressure medications, especially BAILEY inhibitor or ARB and we will monitor. 3. Acidosis secondary to renal failure. Start the patient on oral bicarb. 4. Hyperkalemia. We will place the patient on low-potassium diet and we will start sodium bicarb and we will follow up. 5. Complex renal cyst. The patient is going to need CT as outpatient for better evaluation as it has septation and we will follow up. 6. Deconditioning, poor intake, failure to thrive. Continue hydration. We will change IV fluid to D5 half and we will follow up. 7. Hypernatremia secondary to poor intake. We will change IV fluid and we will follow up. Time spent examining the patient [id number], reviewing the data, placing order, discussing with by bedside, discussing with staff member including charge nurse and nursing and hospitalist 65 minutes. DANIELLA Voice ID: [id number] Report ID: [id number] [email or web address]
[2021-11-07] MEDS: D5 0.45 NS 1,000 ML IV SCH (14:04)
[2021-11-07 19:34] LABS: UR PROTEIN 356.6 mg/dL (<11.9); Urine Protein/Creatinine Ratio 5.24 ratio (<0.15)
[2021-11-07] MEDS ORDERED: ALBUTEROL 2.5 MG/3 ML NEB SOL IH PRN (20:48)
[2021-11-07] MEDS ORDERED: ALBUTEROL INHALER 60 PUFF/8 GM IH PRN (20:48)
--- NOTE | 2021-11-07 20:58 | P.HP ---
Certification for Inpatient Patient admitted to: Inpatient With expected LOS: >2 Midnights Practitioner: I am a practitioner with admitting privileges, knowledge of patient current condition, hospital course, and medical plan of care. Services: Services provided to patient in accordance with Admission requirements found in Title 42 Section 412.3 of the Code of Federal Regulations Patient History Date of Service: 11/07/21 Reason for admission: WEAKNESS, COVID History of Present Illness: MR. ONEILL HAD COVID INFECTION ABOUT 2 WEEKS AGO AND NEVER GOT STRONGER SINCE THEN. HE IS A HEAVY SMOKER WITH COPD, CAD, MCKINLEY AND REFUSES TO QUIT SMOKING. HE HAD VQ SCAN TODAY THAT IS NEGATIVE. Allergies niacin [From Niaspan Extended-Release] Allergy (Mild, Verified 11/07/21 00:17) Nausea/Vomiting paroxetine HCl [From Paxil] Allergy (Mild, Verified 11/07/21 00:17) Itching/Hives/Rash atorvastatin calcium [From Lipitor] Adverse Reaction (Intermediate, Verified 11/07/21 00:17) Muscle weakness paper tape Adverse Reaction (Uncoded 11/07/21 00:17) Rash Home medications list reviewed: Yes Home Medications: Clopidogrel Bisulfate [Plavix*] 75 mg PO DAILY 06/30/12 Tamsulosin [Flomax*] 0.4 mg PO DAILY 06/30/12 allopurinoL [Allopurinol] 300 mg PO DAILY 11/30/13 Pantoprazole Sodium [Protonix] 1 tab PO DAILY 12/02/13 Aspirin 325 mg PO DAILY 11/03/17 Rosuvastatin [Crestor*] 20 mg PO BEDTIME 11/03/17 Albuterol Inhaler [Ventolin Inhaler*] 2 puff IH Q6H PRN 07/23/18 Duloxetine [Cymbalta *] 30 mg PO DAILY 07/23/18 Fluticasone/Umeclidin/Vilanter [Trelegy Ellipta 100-62.5-25] 1 each IH DAILY 07/23/18 Albuterol Neb [Proventil 0.083% Neb Soln] 1 unit IH Q6HP PRN 06/25/21 Arformoterol Tartrate [Brovana] 1 unit IH BID 06/25/21 Dutasteride [Avodart*] 1 tab PO DAILY 06/25/21 Metoprolol Succinate [Toprol Xl] 100 mg PO DAILY 06/25/21 Pregabalin [Lyrica] 150 mg PO DAILY 11/07/21 Spironolactone 50 mg PO DAILY 11/07/21 - Past Medical/Surgical History Diabetic: No -: HTN -: Gout -: Ley's Cyst -: Prostate CA -: Kidney dx -: Cardiac cath x2 w/stent placement -: R illiac & coronary stents - Social History Smoking Status: Never smoker Alcohol use: Yes CD- Drugs: No Caffeine use: Yes Review of Systems 10-point ROS is otherwise unremarkable General: Weakness, Malaise Physical Examination - Vital Signs Temperature: 97.3 F Blood Pressure: 160/77 Pulse: 63 Respirations: 18 Pulse Ox (%): 93 - Physical Exam General: Oriented x3, Mild distress, Moderate distress, Obese HEENT: Atraumatic, PERRLA, Mucous membr. moist/pink, EOMI, Sclerae nonicteric Neck: Supple, 2+ carotid pulse no bruit, No LAD, Without JVD or thyroid abnormality Respiratory: Clear to auscultation bilaterally, Normal air movement Cardiovascular: Regular rate/rhythm, Normal S1 S2 Gastrointestinal: Normal bowel sounds, No tenderness Musculoskeletal: No tenderness Integumentary: No rashes Neurological: Normal gait, Normal speech, Normal strength at 5/5 x4 extr, Normal tone, Normal affect Lymphatics: No axilla or inguinal lymphadenopathy - Studies Laboratory Data (last 24 hrs) 11/07/21 02:24: Sodium 142, Potassium 5.3 H, BUN 64 H, Creatinine 3.23 H, Glucose 91 11/07/21 02:24: WBC 5.2 D, Hgb 9.4 L, Hct 27.7 L, Plt Count 171 11/06/21 20:40: WBC 6.1, Hgb 9.9 L, Hct 29.3 L, Plt Count 197 11/06/21 20:40: Sodium 140, Potassium 5.2 H, BUN 61 H, Creatinine 3.35 H, Glucose 108 H Assessment and Plan - Problems (Diagnosis) (1) COVID Current Visit: Yes Status: Acute Plan: DEBILITY IS BECAUSE OF COVID INDUCED CONSEQUENCES. (2) Acute on chronic renal failure Current Visit: No Status: Chronic Plan: THIS MOST LIKE ACUTE PRERENAL FAILURE ON TOP OF CKD 2. GENTLE HYDRATION. DR. BUTTS CONSULTED. Qualifiers: Chronic kidney disease stage: stage 3 (moderate) (3) COPD (chronic obstructive pulmonary disease) Onset Date: 11/04/17 Current Visit: No Status: Chronic Plan: NEBS RTN. Qualifiers: COPD type: emphysema (4) MCKINLEY (obstructive sleep apnea) Onset Date: 11/04/17 Current Visit: No Status: Chronic Plan: HE USES OXYGEN AT NIGHT WITH CPAP. - Advance Directives Does patient have a Living Will: No Does patient have a Durable POA for Healthcare: No
[2021-11-07] MEDS: ROSUVASTATIN 10 MG TAB PO SCH (21:31)
[2021-11-07] MEDS: SODIUM BICARB 325 MG TAB PO SCH (21:32)
[2021-11-07] MEDS: METOPROLOL XL 100 MG TAB PO SCH (21:32)
[2021-11-07] MEDS: ARFORMOTEROL TARTRATE 15 MCG/2 ML VIAL.NEB IH SCH (21:40)
[2021-11-08] MEDS: METHYLPREDNISOLONE 40 MG INJ IV SCH ×3 (00:31→16:38)
[2021-11-08 03:50] LABS: Absolute Lymphocytes (CBC) 0.3 K/uL (0.7-4.9); Hematocrit 26.6 % (39.6-49.0); Lymphocytes % 7.2 % (15.3-44.8); MCV 94.7 fL (80-100); MPV 9.5 fL (7.6-11.3); RBC Red Blood Cell Count 2.81 M/uL (4.33-5.43)
[2021-11-08 04:27] LABS: Ferritin 367.1 ng/mL (26-388); Phosphorus 3.5 mg/dL (2.5-4.9); Potassium 5.2 mmol/L (3.5-5.1); Thyroid Stimulating Hormone 0.491 uIU/mL (0.360-3.740); Uric Acid 4.4 mg/dL (3.5-7.2)
[2021-11-08 05:04] LABS: Blood Morphology Comment NOTED (NOT SEEN); Platelet Estimate ADEQ
[2021-11-08] MEDS: ARFORMOTEROL TARTRATE 15 MCG/2 ML VIAL.NEB IH SCH ×2 (08:19→20:05)
[2021-11-08] MEDS: Fluticasone/Umeclidin/Vilanter [Trelegy Ellipta 100-62.5-25] Blst.W.Dev IH SCH (09:00)
[2021-11-08] MEDS ORDERED: HOME MED 1 EA UNK (Spironolactone [Spironolactone] 50 MG Tablet) PO SCH (09:00)
[2021-11-08] MEDS: METOPROLOL XL 100 MG TAB PO SCH (09:19)
[2021-11-08] MEDS: ASPIRIN 325 MG TAB PO SCH (09:19)
[2021-11-08] MEDS: PANTOPRAZOLE 40MG TABLET PO SCH (09:19)
[2021-11-08] MEDS: CLOPIDOGREL 75 MG TABLET PO SCH (09:19)
[2021-11-08] MEDS: DULOXETINE 30 MG CAP PO SCH (09:19)
[2021-11-08] MEDS: TAMSULOSIN 0.4 MG SR CAP PO SCH (09:19)
[2021-11-08] MEDS: PREGABALIN 150 MG CAP PO SCH (09:19)
[2021-11-08] MEDS: DUTASTERIDE 0.5 MG GEL CAP PO SCH (09:20)
[2021-11-08] MEDS: allopurinoL 300 MG TAB PO SCH (09:20)
[2021-11-08] MEDS: SODIUM BICARB 325 MG TAB PO SCH ×3 (09:20→21:20)
[2021-11-08] MEDS: D5 0.45 NS 1,000 ML IV SCH (09:36)
--- NOTE | 2021-11-08 09:50 | ER ---
Nurse's Notes [facility] Name: Enrrique Vaughn Age: 76 yrs Sex: Male : 1945 Arrival Date: 11/06/2021 Time: 18:10 Bed 15 Private MD: Julio Stratton V Diagnosis: Shortness of breath;COPD/ Chronic obstructive pulmonary disease with (acute) exacerbation Presentation: 11/06 18:14 Chief complaint: Patient states: pt tested positive for covid around October 23. pt arnold continues to be weak, shortness of breath, off and on fever. Coronavirus screen: Vaccine status: Patient reports receiving the 2nd dose of the covid vaccine. Ebola Screen: Patient denies travel to an Ebola-affected area in the 21 days before illness onset. Initial Sepsis Screen: Does the patient meet any 2 criteria? No. Patient's initial sepsis screen is negative. Does the patient have a suspected source of infection? No. Patient's initial sepsis screen is negative. Risk Assessment: Do you want to hurt yourself or someone else? Patient reports no desire to harm self or others. Onset of symptoms was October 23, 2021. 18:14 Method Of Arrival: Wheelchair arnold 18:14 Acuity: SAMANTHA 3 arnold Triage Assessment: 18:15 General: Appears in no apparent distress. Behavior is calm, cooperative. arnold 23:50 Respiratory: Onset: The symptoms/episode began/occurred. ll3 23:50 Respiratory: ll3 23:50 Respiratory: Reports. ll3 Historical: - Allergies: 18:15 atorvastatin calcium; arnold 18:15 Lipitor; arnold 18:15 Niacin; arnold 18:15 Niaspan; arnold 18:15 Paxil; arnold 18:15 Tape; arnold - Immunization history:: Adult Immunizations up to date. - Social history:: Smoking status: Patient reports the use of cigarette tobacco products, smokes one-half pack cigarettes per day. Screenin:49 Abuse screen: Denies threats or abuse. Nutritional screening: No deficits noted. ll3 Tuberculosis screening: No symptoms or risk factors identified. Fall Risk No fall in past 12 months (0 pts). No secondary diagnosis (0 pts). IV access (20 points). Ambulatory Aid- None/Bed Rest/Nurse Assist (0 pts). Gait- Normal/Bed Rest/Wheelchair (0 pts) Mental Status- Oriented to own ability (0 pts). Total Oates Fall Scale indicates No Risk (0-24 pts). Assessment: 23:50 Respiratory: Airway ll3 23:50 Cardiovascular: Rhythm is sinus rhythm. ll3 23:50 Respiratory: Respiratory effort is. ll3 23:51 Reassessment: No changes from previously documented assessment. Patient and/or family ll3 updated on plan of care and expected duration. Pain level reassessed. Patient is alert, oriented x 3, equal unlabored respirations, skin warm/dry/pink. Vital Signs: 18:14 BP 140 / 73; Pulse 73; Resp 17; Temp 97.5(T); Pulse Ox 94% on R/A; Weight 97.52 kg; arnold Height 5 ft. 6 in. (167.64 cm); 20:44 BP 163 / 72; Pulse 64; Resp 16; Temp 98.1; Pulse Ox 92% ; Weight 97.52 kg; Height 5 ft. zm 6 in. (167.64 cm); 23:51 BP 164 / 73; Pulse 68; Resp 20; Pulse Ox 96% on 2 lpm NC; ll3 20:44 Body Mass Index 34.70 (97.52 kg, 167.64 cm) ED Course: 18:10 Patient arrived in ED. am2 18:10 Julio Stratton MD is Private Physician. am2 18:15 Triage completed. arnold 19:29 XRAY Chest (1 view) In Process Unspecified. EDMS 19:56 Ace Low MD is Attending Physician. kdr 20:44 Inserted saline lock: 20 gauge in right antecubital area, using aseptic technique. Blood collected. 20:44 Basic Metabolic Panel Sent. zm 20:44 CBC with Diff Sent. zm 20:44 D-Dimer Sent. zm 20:44 NT PRO-BNP Sent. zm 20:44 Troponin HS Sent. zm 21:01 Columba Miller, RN is Primary Nurse. bb 21:53 Julio Stratton MD is Hospitalizing Provider. kdr 23:50 No provider procedures requiring assistance completed. ll3 23:50 Arm band placed on. ll3 23:50 Patient has correct armband on for positive identification. Bed in low position. Call ll3 light in reach. Side rails up X 1. 11/07 07:44 Primary Nurse role handed off by Columba Miller, CHRISTOPHER bd Administered Medications: 11/06 21:23 Drug: Xopenex (levalbuterol) (3) 1.25 mg Route: Inhalation; bb 23:06 Drug: Lovenox (enoxaparin) 1 mg/kg Route: Sub-Q; Site: right upper abdomen; sm5 Medication: 23:50 VIS not applicable for this client. ll3 Outcome: 21:54 Decision to Hospitalize by Provider. [facility] 11/07 13:47 Patient left the ED. jd3 Signatures: Dispatcher [employer] EDMS Sonya Duffy Kevin, MD MD kdr Ballard, Brenda, RN RN Sola Rodas Jonathon, RN RN jMelanie Felder RN RN 3 Mariela Jones RN RN sm5 Sagrario Fischer RN RN ha Martinez, Zaina zm
--- NOTE | 2021-11-08 09:50 | EDPHYS ---
Physician Documentation [facility] Name: Enrrique Vaughn Age: 76 yrs Sex: Male : 1945 Arrival Date: 11/06/2021 Time: 18:10 Bed 15 Private MD: Julio Stratton V ED Physician Ace Low HPI: 11/06 21:10 This 76 yrs old Male presents to ER via Wheelchair with complaints of Shortness Of kdr Breath, covid+. 21:10 The patient has shortness of breath at rest, with light activity. Onset: The kdr symptoms/episode began/occurred gradually, 3 week(s) ago. Duration: The symptoms are continuous. The patient's shortness of breath has no apparent modifying factors. Associated signs and symptoms: The patient has no apparent associated signs or symptoms. Severity of symptoms: At their worst the symptoms were mild in the emergency department the symptoms are unchanged. The patient has not experienced similar symptoms in the past. The patient has been recently seen by a physician: the patient's primary care provider. Patient presents today with persistent shortness of breath. He was diagnosed with COVID on about 23 October. He continues to be weak and very short of breath.. Historical: - Allergies: 18:15 atorvastatin calcium; arnold 18:15 Lipitor; arnold 18:15 Niacin; arnold 18:15 Niaspan; arnold 18:15 Paxil; arnold 18:15 Tape; arnold - Immunization history:: Adult Immunizations up to date. - Social history:: Smoking status: Patient reports the use of cigarette tobacco products, smokes one-half pack cigarettes per day. ROS: 21:10 Constitutional: Negative for fever, chills, and weight loss, Eyes: Negative for injury, kdr pain, redness, and discharge, ENT: Negative for injury, pain, and discharge, Neck: Negative for injury, pain, and swelling, Cardiovascular: Negative for chest pain, palpitations, and edema, Abdomen/GI: Negative for abdominal pain, nausea, vomiting, diarrhea, and constipation, Back: Negative for injury and pain, : Negative for injury, bleeding, discharge, and swelling, MS/Extremity: Negative for injury and deformity, Skin: Negative for injury, rash, and discoloration, Neuro: Negative for headache, weakness, numbness, tingling, and seizure activity. Psych: Negative for depression, anxiety, suicide ideation, homicidal ideation, and hallucinations, Allergy/Immunology: Negative for hives, rash, and allergies, Endocrine: Negative for neck swelling, polydipsia, polyuria, polyphagia, and marked weight changes, Hematologic/Lymphatic: Negative for swollen nodes, abnormal bleeding, and unusual bruising. 21:10 Respiratory: Positive for cough, dyspnea on exertion, shortness of breath, on exertion. Negative for hemoptysis, Has a history of COPD. Exam: 21:14 Constitutional: This is a well developed, well nourished patient who is awake, alert, kdr and in no acute distress. Head/Face: Normocephalic, atraumatic. Eyes: Pupils equal round and reactive to light, extra-ocular motions intact. Lids and lashes normal. Conjunctiva and sclera are non-icteric and not injected. Cornea within normal limits. Periorbital areas with no swelling, redness, or edema. Neck: Trachea midline, no thyromegaly or masses palpated, and no cervical lymphadenopathy. Supple, full range of motion without nuchal rigidity, or vertebral point tenderness. No Meningismus. Chest/axilla: Normal chest wall appearance and motion. Nontender with no deformity. No lesions are appreciated. Cardiovascular: Regular rate and rhythm with a normal S1 and S2. No gallops, murmurs, or rubs. Normal PMI, no JVD. No pulse deficits. Abdomen/GI: Soft, non-tender, with normal bowel sounds. No distension or tympany. No guarding or rebound. No evidence of tenderness throughout. Back: No spinal tenderness. No costovertebral tenderness. Full range of motion. Skin: Warm, dry with normal turgor. Normal color with no rashes, no lesions, and no evidence of cellulitis. MS/ Extremity: Pulses equal, no cyanosis. Neurovascular intact. Full, normal range of motion. Neuro: Awake and alert, GCS 15, oriented to person, place, time, and situation. Cranial nerves II-XII grossly intact. Motor strength 5/5 in all extremities. Sensory grossly intact. Cerebellar exam normal. Normal gait. Psych: Awake, alert, with orientation to person, place and time. Behavior, mood, and affect are within normal limits. 21:14 Respiratory: the patient does not display signs of respiratory distress, Respirations: normal, Breath sounds: rales, that are mild, are located in both bases, wheezing: inspiratory that is mild, is heard diffusely. Vital Signs: 18:14 BP 140 / 73; Pulse 73; Resp 17; Temp 97.5(T); Pulse Ox 94% on R/A; Weight 97.52 kg; arnold Height 5 ft. 6 in. (167.64 cm); 20:44 BP 163 / 72; Pulse 64; Resp 16; Temp 98.1; Pulse Ox 92% ; Weight 97.52 kg; Height 5 ft. zm 6 in. (167.64 cm); 23:51 BP 164 / 73; Pulse 68; Resp 20; Pulse Ox 96% on 2 lpm NC; ll3 20:44 Body Mass Index 34.70 (97.52 kg, 167.64 cm) zm MDM: 21:14 Data reviewed: vital signs, nurses notes, lab test result(s), radiologic studies. kdr Counseling: I had a detailed discussion with the patient and/or guardian regarding: the historical points, exam findings, and any diagnostic results supporting the discharge/admit diagnosis, lab results, radiology results. 21:54 Patient medically screened. kdr 11/06 19:57 Order name: Basic Metabolic Panel; Complete Time: 21:45 kdr 11/06 19:57 Order name: CBC with Diff; Complete Time: 21:06 kdr 11/06 19:57 Order name: D-Dimer; Complete Time: 21:06 kdr 11/06 19:57 Order name: NT PRO-BNP; Complete Time: 21:45 kdr 11/06 19:57 Order name: Troponin HS; Complete Time: 21:45 kdr 11/06 22:01 Order name: Basic Metabolic Panel EDMS 11/06 22:01 Order name: Basic Metabolic Panel EDMS 11/06 22:01 Order name: CBC with Automated Diff EDMS 11/06 22:01 Order name: CBC with Automated Diff EDMS 11/06 22:01 Order name: NT PRO-BNP EDSD 11/06 22:01 Order name: NT PRO-BNP EDSD 11/06 23:02 Order name: COVID-19 SARS RT PCR (Document "Date of Onset" if Symptomatic) mw2 11/07 00:50 Order name: SARS-COV-2 RT PCR EDSD 11/06 18:11 Order name: XRAY Chest (1 view); Complete Time: 19:56 rn 11/06 19:57 Order name: EKG; Complete Time: 20:00 kdr 11/06 19:57 Order name: Cardiac monitoring; Complete Time: 20:44 kdr 11/06 19:57 Order name: EKG - Nurse/Tech; Complete Time: 20:44 kdr 11/06 19:57 Order name: IV Saline Lock; Complete Time: 20:44 kdr 11/06 19:57 Order name: Labs collected and sent; Complete Time: 20:44 kdr 11/06 19:57 Order name: O2 Per Protocol; Complete Time: 20:56 kdr 11/06 19:57 Order name: O2 Sat Monitoring; Complete Time: 20:56 kdr 11/06 22:01 Order name: Regular EDMS 11/06 22:01 Order name: Vent Perfusion VQ Scan EDMS 11/07 08:57 Order name: NM EDMS Administered Medications: 21:23 Drug: Xopenex (levalbuterol) (3) 1.25 mg Route: Inhalation; bb 23:06 Drug: Lovenox (enoxaparin) 1 mg/kg Route: Sub-Q; Site: right upper abdomen; sm5 Disposition Summary: 11/06/21 21:54 Hospitalization Ordered Hospitalization Status: Observation kdr Provider: Julio Stratton kdr Condition: Fair kdr Problem: an acute exacerbation kdr Symptoms: have improved kdr Bed/Room Type: Standard kdr Location: Telemetry/MedSurg (observation)(11/07/21 12:20) dw Room Assignment: [facility](11/07/21 12:20) dw Diagnosis - Shortness of breath kdr - COPD/ Chronic obstructive pulmonary disease with (acute) exacerbation kdr Forms: - Medication Reconciliation Form kdr - SBAR form kdr Signatures: Dispatcher [employer] EDMS Vivian Hooker RN RN mw Woody, Diana RN Ace Rodriguez MD MD kdr Ballard, Brenda, RN RN bb Mazur, Sarah, RN RN 5 RobertaStageSagrario dominguez RN RN ha Corrections: (The following items were deleted from the chart) 21:22 21:16 Chest For PE Angio+CT.RAD.BRZ ordered. EDSD EDSD 21:58 21:54 Telemetry/MedSurg (observation) [facility] 21:58 21:54 kdr mw 11/07 12:11/06 21:58 [address] [facility] mw dw 11/07:58 ERHOLD- mw dw
[2021-11-08] MEDS ORDERED: EPOETIN ALFA-EPBX 10,000 UNIT/ML VIAL SQ SCH (10:00)
[2021-11-08] MEDS: D5W 1,000 ML IV SCH (11:19)
--- NOTE | 2021-11-08 14:09 | PN ---
Date of Progress Note: 11/08/2021 Subjective: The patient was admitted with acute kidney injury on chronic kidney disease. The patient's baseline creatinine 2.9. The patient also had some acidosis and hyperkalemia. Physical Examination: Vital Signs: When I saw the patient; blood pressure of 156/64, pulse of 55, afebrile. The patient had voiding 3 times. Chest: Clear to auscultation. Heart: S1, S2. Regular. Abdomen: Soft, nontender. Extremity: No edema. Neuro: The patient completely more awake today, carried conversation. No focality. Laboratory Data: WBC 3.8, H and H 9/26.6. Sodium 140, potassium 5.2, bicarb 16, chloride 118, anion gap of 11, BUN 68, creatinine 2.9. Iron saturation 46. Serum protein electrophoresis is still pending. PTH 115. Vitamin D still pending. PC ratio is 5. Assessment And Plan: 1. Chronic kidney disease stage 4, baseline creatinine 2.9, normal size kidney 02/17 as of previous ultrasound, status post acute kidney injury secondary to prerenal, back to baseline. The patient has nephrotic range of proteinuria, does not have any diabetes, but has non-anion gap metabolic acidosis and anemia. To rule out any light chain disease, we are still pending on serum protein electrophoresis. We will follow up. I am going to avoid any BAILEY inhibitor or ARB for the time being and we will monitor. 2. Non-anion gap metabolic acidosis, possible secondary to IV fluid. I am going to change the IV fluid to D5. We will start the patient on sodium bicarb 650 t.i.d. and I am going to go ahead and send for urine electrolyte and we will follow up the patient. 3. Marginal hyperkalemia, possible secondary to RTA. We will send for urine electrolyte. We will continue to monitor with hydration. 4. Hypertension, currently controlled, not optimal. We will start the patient on Norvasc. Consider to switch metoprolol to carvedilol given the nephrotic range of proteinuria. 5. Nephrotic range of proteinuria with the presence of chronic kidney disease and anemia. I am going to go ahead and send for serology workup. Follow up serum protein electrophoresis. 6. Complex cyst, needs followup as outpatient. 7. Anemia of chronic kidney disease. Iron deficiency anemia has been ruled out. We will give Retacrit and we will follow up the patient. 8. Hypernatremia, resolved. Time spent examining the patient [id number], reviewing the data, placing order, discussing with by bedside, discussing with staff member including charge nurse and nursing and hospitalist 35 minutes. ADNIELLA Voice ID: [id number] Report ID: [id number] J CARLOS
--- NOTE | 2021-11-08 17:57 | P.PN ---
Subjective Date of Service: 11/08/21 Chief Complaint: WEAKNESS, COVID Subjective: Improving GEN WEAK,ABLE TO TALK. ABLE TO WALK. NO PAIN. Physical Examination - Vital Signs Temperature: 97.1 F Blood Pressure: 150/63 Pulse: 58 Respirations: 18 Pulse Ox (%): 93 - Physical Exam General: Oriented x3, Mild distress, Obese HEENT: Atraumatic, PERRLA, EOMI Neck: Supple, JVD not distended Respiratory: Clear to auscultation bilaterally, Normal air movement Cardiovascular: Regular rate/rhythm, Normal S1 S2 Gastrointestinal: Normal bowel sounds, No tenderness Musculoskeletal: No tenderness Integumentary: No rashes Neurological: Normal speech, Normal tone, Normal affect Lymphatics: No axilla or inguinal lymphadenopathy - Studies Medications List Reviewed: Yes Assessment And Plan - Current Problems (Diagnosis) (1) COVID Current Visit: Yes Status: Acute Plan: DEBILITY IS BECAUSE OF COVID INDUCED CONSEQUENCES. NO SS. WEAKNESS. NEEDS TO AMBULATE HE CAN GO HOME IN AM. (2) Acute on chronic renal failure Current Visit: No Status: Chronic Plan: THIS MOST LIKE ACUTE PRERENAL FAILURE ON TOP OF CKD 2. GENTLE HYDRATION. DR. BUTTS CONSULTED. BACK TO BASELINE NOW. ACIDOSIS IS FROM CKD. Qualifiers: Chronic kidney disease stage: stage 3 (moderate) (3) COPD (chronic obstructive pulmonary disease) Onset Date: 11/04/17 Current Visit: No Status: Chronic Plan: NEBS RTN. Qualifiers: COPD type: emphysema (4) MCKINLEY (obstructive sleep apnea) Onset Date: 11/04/17 Current Visit: No Status: Chronic Plan: HE USES OXYGEN AT NIGHT WITH CPAP.
[2021-11-08] MEDS: IPRATROPIUM BROM 0.5MG/2.5ML NEB PRN (20:05)
[2021-11-08] MEDS: ROSUVASTATIN 10 MG TAB PO SCH (21:20)
[2021-11-09] MEDS: METHYLPREDNISOLONE 40 MG INJ IV SCH ×2 (00:23→08:53)
[2021-11-09 03:28] LABS: RBC Red Blood Cell Count 2.87 M/uL (4.33-5.43)
[2021-11-09 03:37] LABS: Phosphorus 2.6 mg/dL (2.5-4.9)
[2021-11-09 03:46] LABS: Rheumatoid Factor NEG (NEG)
[2021-11-09] MEDS: D5W 1,000 ML IV SCH ×2 (04:39→07:00)
[2021-11-09] MEDS: IPRATROPIUM BROM 0.5MG/2.5ML NEB PRN (06:25)
[2021-11-09] MEDS: ARFORMOTEROL TARTRATE 15 MCG/2 ML VIAL.NEB IH SCH (06:25)
[2021-11-09 06:47] VITALS: O2SAT 91
[2021-11-09 08:11] VITALS: BP 163/64; TEMP 98.8
[2021-11-09] MEDS: Fluticasone/Umeclidin/Vilanter [Trelegy Ellipta 100-62.5-25] Blst.W.Dev IH SCH (08:44)
[2021-11-09] MEDS: allopurinoL 300 MG TAB PO SCH (08:52)
[2021-11-09] MEDS: CLOPIDOGREL 75 MG TABLET PO SCH (08:52)
[2021-11-09] MEDS: METOPROLOL XL 100 MG TAB PO SCH (08:52)
[2021-11-09] MEDS: DUTASTERIDE 0.5 MG GEL CAP PO SCH (08:52)
[2021-11-09] MEDS: PREGABALIN 150 MG CAP PO SCH (08:52)
[2021-11-09] MEDS: TAMSULOSIN 0.4 MG SR CAP PO SCH (08:52)
[2021-11-09] MEDS: SODIUM BICARB 325 MG TAB PO SCH (08:52)
[2021-11-09] MEDS: PANTOPRAZOLE 40MG TABLET PO SCH (08:53)
[2021-11-09] MEDS: ASPIRIN 325 MG TAB PO SCH (08:53)
[2021-11-09] MEDS: DULOXETINE 30 MG CAP PO SCH (08:53)
[2021-11-09] MEDS ORDERED: AMLODIPINE 5 MG TAB PO SCH (09:00)
[2021-11-13 23:58] LABS: Vitamin D 1,25-Dihydroxy Total 38 pg/mL (18-72); Vitamin D,1,25-OH2, D2 <8 pg/mL
[2021-11-14 14:53] LABS: HIV AG/AB 4TH GEN Non-reactive (Non-reactive)
[2021-11-14 16:30] LABS: Albumin, (SPE) 2.4 g/dL (3.8-4.8); Alpha-1-Globulins 0.5 g/dL (0.2-0.3); Gamma Globulins 0.9 g/dL (0.8-1.7); INTERPRETATION REPORT
== END 2021-11-09 10:15 | disposition home or self-care (01) | DRG 682 ==
LOC: ER 18:04 → ERHOLD 22:20 → 4TH 11-07 13:10 → OBSVTOIN 11-07 20:24 → 4TH 11-08 22:47
PROVIDERS: ADMIT Internal Medicine; ATTEND Internal Medicine
DX: N17.9 Acute kidney failure, unspecified (principal); U07.1 COVID-19; E87.2 Acidosis; E87.0 Hyperosmolality and hypernatremia; N18.4 Chronic kidney disease, stage 4 (severe); I12.9 Hypertensive chronic kidney disease with stage 1 through stage 4 chronic kidney disease, or unspecified chronic kidney disease; D63.1 Anemia in chronic kidney disease; E87.5 Hyperkalemia; E78.5 Hyperlipidemia, unspecified; I25.10 Atherosclerotic heart disease of native coronary artery without angina pectoris; I73.9 Peripheral vascular disease, unspecified; J43.9 Emphysema, unspecified; G47.33 Obstructive sleep apnea (adult) (pediatric); M10.9 Gout, unspecified; C61 Malignant neoplasm of prostate; N28.1 Cyst of kidney, acquired; N25.89 Other disorders resulting from impaired renal tubular function; F17.210 Nicotine dependence, cigarettes, uncomplicated; R62.7 Adult failure to thrive; Z68.34 Body mass index [BMI] 34.0-34.9, adult; Z99.81 Dependence on supplemental oxygen; Z95.5 Presence of coronary angioplasty implant and graft; Z95.820 Peripheral vascular angioplasty status with implants and grafts; Z79.02 Long term (current) use of antithrombotics/antiplatelets; Z79.899 Other long term (current) drug therapy; Z88.8 Allergy status to other drugs, medicaments and biological substances; Z91.09 Other allergy status, other than to drugs and biological substances
CPT/HCPCS: 36415; 71045; 78582; 80048; 80069; 82570; 82607; 82652; 82728; 82746; 82947; 83540; 83880; 83935; 83970; 84132; 84156; 84165; 84300; 84443; 84466; 84484; 84550; 85025; 85044; 85302; 85379; 86021; 86160; 86225; 86430; 86705; 86706; 86803; 87340; 87389; 93005; 94640; 94760; 94762; 96372; 97116; 97161; 97530; 99285; A9540; G0378; J1650; J2920; J7605; J7799; Q5106; U0003

== ENCOUNTER 2022-03-09 20:12 | Inpatient (IN) | payer OTHER ==
--- OUTSIDE RECORDS SUMMARY | 2022-03-09 20:18 | XMS REPORT | Continuity of Care Document ---
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 [facility] BMI 2021-03-09 20:58:00 31.95 kg/m2 [facility] Heart rate 2021-02-23 15:32:00 59 /min [facility] Oxygen saturation in 2021-02-23 15:32:00 95 /min [facility] Arterial blood by [facility] Pulse oximetry Branch Systolic blood 2021-02-23 15:29:00 176 mm[Hg] [facility] Diastolic blood 2021-02-23 15:29:00 85 mm[Hg] [facility] Respiratory rate 2021-02-23 15:29:00 20 /min [facility] Body temperature 2021-02-23 15:16:00 36.22 Caridad [facility] Body height 2021-02-20 19:08:00 167.6 cm [facility] Body weight 2021-02-20 19:08:00 89.8 kg [facility] BMI 2021-02-20 19:08:00 31.97 kg/m2 [facility] Systolic blood 2021-02-23 13:11:00 160 mm[Hg] Univer sity of pressure [facility] Diastolic blood 2021-02-23 13:11:00 70 mm[Hg] Unive rsity of pressure [facility] Heart rate 2021-02-23 13:11:00 63 /min [facility] Body temperature 2021-02-23 13:11:00 37.06 [facility]idad [facility] Res[facility] rate 2021-02-23 13:11:00 19 /min [facility] Oxygen saturation in 2021-02-23 13:11:00 97 /min [facility] Arterial blood by [facility] Pulse oximetry [place] Body height 2021-02-20 19:08:00 167.6 cm [facility] Body weight 2021-02-20 19:08:00 89.8 kg [facility] BMI 2021-02-20 19:08:00 31.97 kg/m2 [facility] Procedures Procedure Date / Time Performing Source Performed Clinician HEPATITIS B SURFACE ANTIBODY 2021-11-[address] [facility] 02:26:00 [facility] HEPATITIS B CORE ANTIBODY, 2021-11-09 [facility] 02:26:00 [facility] HEPATITIS B SURFACE ANTIGEN 2021-11-[address] [facility] 02:26:00 [facility] HEPATITIS C ANTIBODY 2021-11-[address] [facility] 02:26:00 [facility] PHACOEMULSIFICATION OF 2021-03-16 [facility] CATARACT WITH INTRAOCULAR 16:18:00 Mir Triplett LENS IMPLANT ASSIGNMENT OF BENEFITS 2021-03-13 Doctor Unassigned, [facility] 15:20:07 [place] [facility] PHACOEMULSIFICATION OF 2021-02-23 [facility] CATARACT WITH INTRAOCULAR 14:30:00 Mir Triplett LENS IMPLANT CBC WITH DIFF 2021-02-20 [facility] xas 14:56:00 [facility] COVID-19 (ID NOW RAPID 2021-02-20 [facility] TESTING) 14:50:00 [facility] Encounters Start End Encounter Admission Attending Care Care Encounter Source Date/Time Date/Time Type Type Clinicians Facility Department ID 2021-11-09 2021-11-09 Lab [facility] [id number] 00:00:00 00:00:00 Garcia Kennedy [facility] 2021-03-16 2021-03-16 [facility] [id number] Univers 08:29:00 11:46:00 TRES itandria [facility] 2021-03-16 2021-03-16 [facility] [id number] Univers 08:29:00 11:46:00 Encounter Tres DUEÑAS [id number] [place] [id number] [address] 2021-03-16 2021-03-16 [facility] [id number] Univers 09:54:00 10:30:00 Tres DUEÑAS [id number] i [place] [id number] [facility] 020 Branch 2021-03-13 2021-03-13 Orders Doctor MIKE [id number] Univers 00:00:00 00:00:00 Only Unassigned, SON 350.1.13.10 ity of [place] [facility] 4.2.7.2.686 Jeremi as [id number] [place] [address] Branch 2021-02-23 2021-02-23 [facility] [id number] Univers 07:00:00 09:45:00 TRES jo [facility] 2021-02-23 2021-02-23 [facility] [id number] Univers 07:00:00 09:45:00 Encounter Tres DUEÑAS [id number] [place] [id number] [address] 2021-02-23 2021-02-23 Surgery [facility] [id number] Univers 08:37:00 09:11:00 Tres DUEÑAS [id number] i ty of Mir LUCASVIGN[place] [id number] [facility] CENTER 020 Branch 2021-02-20 2021-02-20 [employer] Operator Pancho, Seth Lab Main [facility] 1.2.8 40.114 [id number] Univers 08:35:12 08:50:12 Visit Tres Jeronimo 350.1.1 3.10 [place] [id number] Co dical NAL 353 Branch [facility] 2021-02-20 2021-02-20 Outpatient R JOHNATHON, [facility] [id number] Univers 08:45:00 08:45:00 TRES jo [facility] Results Test Description Test Time Test Comments Results Result Comments Source Hepatitis B surface antibody 2021-11-09 11:07:39 Test Item Value Reference Range Interpretation Comme nts Hep B S Ab (test code = <8.0 See_Comment [Au tomated message] The 45764-5) system which ge nerated this result transmit connei reference range : <8.0 mIU/mL. The ref erence range was not used to interpret this result as normal/abnormal . BERT (test code = BERT) Salesperson [employer] ID - LESLIE M Lab Interpretation (test Normal code = 25041-2) [facility] [id number] 11:07:39 Test Item Value Reference Range Interpretation Comments HEPATITIS B SURFACE ANTIBODY < mIU/mL <8.0 (BEAKER) (test code = 647) Salesperson [employer] ID - LESLIE MHepatitis C [id number] 11:00:00 Test Item Value Reference Range Interpretation Comments Hepatitis C Ab (test Nonreactive Nonreactive code = 08325-5) BERT (test code = BERT) Salesperson [employer] ID - LESLIE M Lab Interpretation (test Normal code = 45065-7) [facility] [id number] 11:00:00 Test Item Value Reference Range Interpretation Comments HEPATITIS C ANTIBODY (BEAKER) Nonreactive Nonreactive (test code = 367) Salesperson [employer] ID - LESLIE MHepatitis B core antibody, [id number] 10:59:55 Test Item Value Reference Range Interpretation Comments Hep B C IgM (test code = Nonreactive Nonreactive 16265-4) BERT (test code = BERT) Salesperson [employer] ID - LESLIE M Lab Interpretation (test Normal code = 65873-5) [facility] CORE ANTIBODY, [id number] 10:59:55 Test Item Value Reference Range Interpretation Comments HEPATITIS B CORE IGM ANTIBODY Nonreactive Nonreactive (BEAKER) (test code = 645) Salesperson [employer] ID - LESLIE MHepatitis B surface [id number] 10:59:54 Test Item Value Reference Range Interpretation Comments Hepatitis B surface Nonreactive Nonreactive antigen (test code = 5195-3) BERT (test code = BERT) Specimen is considered negative for HBsAg. Lab Interpretation (test Normal code = 63062-3) [facility] [id number] 10:59:54 Test Item Value Reference Range Interpretation Comments HEPATITIS B SURFACE ANTIGEN (2) Nonreactive Nonreactive (BEAKER) (test code = 2585) Specimen is considered negative for HBsAg.CBC WITH [id number] 15:01:08 Test Item Value Reference Range Interpretation Comments WBC (test code = See_Comment [Automated 6690-2) message] The sy stem which generated this result transmitted reference range : 4.20 - 10.70 10*3/?L. The reference range was not used to interpret this result as normal/abnormal . RBC (test code = See_Comment L [Automated 789-8) message] The sy stem which generated this result transmitted reference range : 4.26 - 5.52 10*6/?L. The reference range was not used to interpret this result as normal/abnormal . HGB (test code = 10.7 g/dL 12.2-16.4 L 718-7) HCT (test code = 33.4 % 38.4-49.3 L 4544-3) MCV (test code = 99.4 fL 81.7-95.6 H 787-2) MCH (test code = 31.8 pg 26.1-32.7 785-6) MCHC (test code = 32.0 g/dL 31.2-35.0 786-4) RDW-SD (test code = 56.7 fL 38.5-51.6 H 13325-1) RDW-CV (test code = 15.7 % 12.1-15.4 H 788-0) PLT (test code = See_Comment [Automated 777-3) message] The sy stem which generated this result transmitted reference range : 150 - 328 10*3/ ?L. The reference r joaquin was not used to interpret this result as normal/abnormal . MPV (test code = 10.8 fL 9.8-13.0 75763-9) NRBC/100 WBC (test See_Comment [Automat ed code = [id number]) message] The system which generated this result transmitted reference range : 0.0 - 10.0 /100 WBCs. The refer ence range was not u sed to interpret th is result as normal/abnormal . NRBC x10^3 (test code <0.01 See_Comment [Auto mated = [id number]) message] The s ystem which generated this result transmitted reference range : 10*3/?L. The reference range was not used to interpret this result as normal/abnormal . GRAN MAT (NEUT) % 76.8 % (test code = 770-8) IMM GRAN % (test code 0.80 % = 7507865578) LYMPH % (test code = 16.0 % 736-9) MONO % (test code = 5.8 % 5905-5) EOS % (test code = 0.0 % 713-8) BASO % (test code = 0.6 % 706-2) GRAN MAT x10^3(ANC) 5.54 10*3/uL 1.99-6.95 (test code = 5836672964) IMM GRAN x10^3 (test 0.06 10*3/uL 0.00-0.06 code = 3242839174) LYMPH x10^3 (test code 1.15 10*3/uL 1.09-3.23 = 731-0) MONO x10^3 (test code 0.42 10*3/uL 0.36-1.02 = 742-7) EOS x10^3 (test code = <0.03 0.06-0.53 L 711-2) BASO x10^3 (test code 0.04 10*3/uL 0.01-0.09 = 704-7) Lab Interpretation Abnormal (test code = 19994-5) [facility] [id number] 12:20:00Addendum BeginsREPORT STATUS:A Addendum: I have reviewed the nonvascular features of this examination concur with Dr. Stewart's report. There is been interval growth in the size of the largest cyst in the left kidney from 5.7 to 8.1 cm. The other renal lesions are unchanged in sizeand configuration. Signed: AndersMehdi MDReport Verified Date/Time: 10/22/2018 12:20:45 Reading Location: [place] [id number] Angio Body Reading RoomAddendum EndsFINAL REPORT CT [...] and the right. Prior addendum by the Electronic Warfare Officer Radiologist, the calcification could be related to [...] dictated regarding the non-vascular findings by the Electronic Warfare Officer Radiologists. Signed: Fausto Stewart MDReport Verified Date/Time: 10/22/2018 10:10:53 Reading Location: [place] [address] Cardiology MRI
[2022-03-09 22:16] LABS: Hematocrit 27.6 % (39.6-49.0); Lymphocytes % 13.4 % (15.3-44.8); MCV 98.9 fL (80-100); MPV 9.3 fL (7.6-11.3); RBC Red Blood Cell Count 2.79 M/uL (4.33-5.43)
[2022-03-09 22:34] LABS: Potassium 6.1 mmol/L (3.5-5.1)
[2022-03-09 22:35] LABS: SARS-CoV-2 Antigen Rapid Res Negative (Negative)
--- NOTE | 2022-03-09 22:47 | EDPHYS ---
Physician Documentation [facility] Name: Enrrique Vaughn Age: 76 yrs Sex: Male : 1945 Arrival Date: 03/09/2022 Time: 20:19 Bed 6 Private MD: ED Physician David Quintero HPI: 03/10 02:26 This 76 yrs old Male presents to ER via Wheelchair with complaints of Leg Pain, General ms3 Weakness. 02:26 Patient states he was called by Dr. Stratton all 45 minutes prior to arrival for elevated ms3 creatinine and potassium. Patient states his labs were drawn yesterday. Patient denies pain at this time. Patient denies alleviating or inciting factors. Patient notes he has had diarrhea. Onset: The symptoms/episode began/occurred 45 minute(s) ago. Severity of symptoms: At their worst the symptoms were No pain. The patient has been recently seen by a physician: Dr. Stratton. Historical: - Allergies: 03/09 20:56 atorvastatin calcium; kb3 20:56 Lipitor; kb3 20:56 Niacin; kb3 20:56 Niaspan; kb3 20:56 Paxil; kb3 20:56 Tape; kb3 - Home Meds: 20:56 allopurinol 300 mg Oral tab 1 tab once daily [Active]; aspirin 325 mg Oral tab 1 tab kb3 once daily [Active]; Avodart 0.5 mg Oral cap 1 cap once daily [Active]; Brovana 15 mcg/2 mL inhalation nebu 2 mL 2 times per day [Active]; Crestor 20 mg Oral tab 1 tab once daily [Active]; Cymbalta 30 mg Oral cpDR [Active]; Flomax 0.4 mg Oral cp24 1 cap once daily [Active]; glucosamine-chondroitin 750 mg-100 mg- 125 mg-1.65 mg Oral tab [Active]; Lyrica 150 mg Oral 1 cap nightly [Active]; metoprolol tartrate 100 mg Oral tab 1 tab once daily [Active]; Plavix 75 mg Oral tab 1 tab once daily [Active]; Protonix 40 mg Oral TbEC 1 tab once daily [Active]; tramadol 50 mg Oral tab 1 tab every 4 hours [Active]; Trelegy 100 mcg INH, daily [Active]; Trilipix 135 mg Oral cpDR 1 cap once daily [Active]; Vitamin C 1,000 mg Oral tab daily [Active]; - PMHx: 20:56 COPD; Hypertension; Prostate Cancer; Gout; kb3 - PSHx: 20:56 None; kb3 - Immunization history:: Adult Immunizations up to date, Client reports receiving the 2nd dose of the Covid vaccine, Last tetanus immunization: up to date. - Social history:: Smoking status: Patient reports the use of cigarette tobacco products, smokes one pack cigarettes per day. ROS: 03/10 02:26 Constitutional: Negative for fever, and chills. ENT: Negative for injury, pain, and ms3 discharge, Neck: Negative for injury, pain, and swelling, Cardiovascular: Negative for chest pain, and palpitations. Respiratory: Negative for shortness of breath, cough, wheezing, and pleuritic chest pain. MS/Extremity: Negative for injury and deformity, Skin: Negative for injury, rash, and discoloration, Neuro: Negative for headache, weakness, numbness, tingling. Abdomen/GI: Positive for diarrhea. All other systems are negative. Exam: 02:26 Constitutional: This is a well developed, well nourished patient who is awake, alert, ms3 and in no acute distress. Head/Face: Normocephalic, atraumatic. Neck: Trachea midline, no cervical lymphadenopathy. Supple, full range of motion without nuchal rigidity, or vertebral point tenderness. No Meningismus. Chest/axilla: Normal chest wall appearance and motion. Nontender with no deformity. Cardiovascular: Regular rate and rhythm with a normal S1 and S2. No gallops, murmurs, or rubs. Normal PMI, no JVD. No pulse deficits. Respiratory: Lungs have equal breath sounds bilaterally, clear to auscultation and percussion. No rales, rhonchi or wheezes noted. No increased work of breathing, no retractions or nasal flaring. Abdomen/GI: Soft, non-tender, with normal bowel sounds. No distension or tympany. No guarding or rebound. No evidence of tenderness throughout. Skin: Warm, dry with normal turgor. Normal color with no rashes, no lesions, and no evidence of cellulitis. MS/ Extremity: Pulses equal, no cyanosis. Neurovascular intact. Full, normal range of motion. Psych: Awake, alert, with orientation to person, place and time. Behavior, mood, and affect are within normal limits. 02:51 ECG was reviewed by the Attending Physician. ms3 Vital Signs: 03/09 20:53 BP 163 / 73; Pulse 60; Resp 20; Temp 97.8; Pulse Ox 99% ; Weight 89.36 kg; Height 5 ft. kb3 6 in. (167.64 cm); Pain 0/10; 22:00 BP 174 / 70; Pulse 64; Resp 17; Temp 98.3; Pulse Ox 98% on 2 lpm NC; Weight 89.36 kg; wm Height 5 ft. 6 in. (167.64 cm); 03/10 00:01 BP 153 / 61; Pulse 63; Resp 18; Pulse Ox 95% on 2 lpm NC; kl 03/09 22:00 Body Mass Index 31.80 (89.36 kg, 167.64 cm) wm MDM: 03/09 21:03 Patient medically screened. ms3 03/10 02:26 Data reviewed: vital signs, nurses notes, lab test result(s), and as a result, I will ms3 admit patient. Counseling: I had a detailed discussion with the patient and/or guardian regarding: the historical points, exam findings, and any diagnostic results supporting the discharge/admit diagnosis, lab results, the need for further work-up and treatment in the hospital. ED course: Case was discussed with Dr. Stratton. Patient's labs sent to [facility] revealed a potassium of 6.4 and creatinine of 1.2. Dr. Stratton recommends 30 g Kayexalate and normal saline at 75 mL/h and patient to be placed in observation.. 03/09 20:53 Order name: CBC with Diff; Complete Time: 22:38 ms3 03/09 20:53 Order name: BMP; Complete Time: 22:38 ms3 03/09 20:53 Order name: SARS RAPID; Complete Time: 22:38 ms3 03/09 22:58 Order name: CMP ms3 03/09 22:58 Order name: Lipase; Complete Time: 01:02 ms3 03/09 23:01 Order name: Basic Metabolic Panel EDMS 03/09 23:01 Order name: Basic Metabolic Panel; Complete Time: 09:31 EDMS 03/09 23:01 Order name: CBC with Automated Diff EDMS 03/09 23:01 Order name: CBC with Automated Diff; Complete Time: 09:31 EDMS 03/10 00:13 Order name: Liver (Hepatic) Function; Complete Time: 01:02 EDMS 03/10 10:13 Order name: ABO/RH typing EDMS 03/10 10:13 Order name: Antibody Screen EDMS 03/10 10:23 Order name: Iron EDMS 03/10 10:23 Order name: Transferrin Sat/Iron Binding EDMS 03/09 22:58 Order name: EKG; Complete Time: 22:58 ms3 03/09 22:58 Order name: EKG - Nurse/Tech; Complete Time: 02:49 ms3 03/09 22:58 Order name: IV Saline Lock; Complete Time: 23:34 ms3 03/09 22:58 Order name: Labs collected and sent; Complete Time: 23:34 ms3 03/09 23:01 Order name: Heart Healthy EDMS 03/10 10:23 Order name: Vitamin B12 Level EDMS EC:51 Rate is 58 beats/min. Rhythm is regular. QRS [place] is Normal. IN interval is normal. QRS ms3 interval is normal. Clinical impression: Sinus bradycardia. Interpreted by me. Reviewed by me. Administered Medications: 03/09 23:44 Drug: Calcium Gluconate 1 grams Route: IVPB; Infused Over: 60 mins; Site: right [facility]; 23:44 Drug: Kayexalate (polystyrene) 30 grams Route: PO; 03/10 00:34 Follow up: Response: No adverse reaction 03/09 23:44 Drug: NS 0.9% 1000 ml Route: IV; Rate: 75 ml/hr; Site: right antecubital; 03/10 00:34 Follow up: IV Status: Infusion continued upon admission Disposition Summary: 03/09/22 22:46 Hospitalization Ordered Hospitalization Status: Observation ms3 Provider: Julio Stratton ms3 Condition: Stable ms3 Problem: new ms3 Symptoms: are unchanged ms3 Bed/Room Type: Standard ms3 Location: Telemetry/MedSurg (observation)(03/10/22 12:30) eb Room Assignment: 410(03/10/22 12:30) eb Diagnosis - Hyperkalemia ms3 - Dehydration ms3 - Diarrhea, unspecified ms3 Forms: - Medication Reconciliation Form ms3 - SBAR form ms3 Signatures: Dispatcher [employer] Darlin Miller RN RN Vivian Danielson RN RN Darren Chau MD MD cha Botello, Elizabeth eb Sims, Marcus, DO [facility] ms3 Lorena Castillo, RN RN kb3 Corrections: (The following items were deleted from the chart) 03/09 23:04 22:46 Telemetry/MedSurg (observation) nh3 mw 23: 22:46 ms3 mw 03/10 12:30 12 23:04 [facility] 03/10 12:30 12 23:04 [facility]
--- NOTE | 2022-03-09 22:47 | ER ---
Nurse's Notes [facility] Name: Enrrique Vaughn Age: 76 yrs Sex: Male : 1945 Arrival Date: 03/09/2022 Time: 20:19 Bed 6 Private MD: Diagnosis: Hyperkalemia;Dehydration;Diarrhea, unspecified Presentation: 03/09 20:53 Chief complaint: Patient states: he was instructed by Dr Stratton to come to ER for kb3 further evaluation after routine lab work today came back abnormal. Coronavirus screen: Vaccine status: Patient reports receiving the 2nd dose of the covid vaccine. Client denies travel out of the [place] in the last 14 days. Ebola Screen: Patient negative for fever greater than or equal to 101.5 degrees Fahrenheit, and additional compatible Ebola Virus Disease symptoms Patient denies exposure to infectious person. Patient denies travel to an Ebola-affected area in the 21 days before illness onset. Initial Sepsis Screen: Does the patient meet any 2 criteria? No. Patient's initial sepsis screen is negative. Does the patient have a suspected source of infection? No. Patient's initial sepsis screen is negative. Risk Assessment: Do you want to hurt yourself or someone else? Patient reports no desire to harm self or others. Onset of symptoms was March 09, 2022 at 19:00. 20:53 Method Of Arrival: Wheelchair kb3 20:53 Acuity: SAMANTHA 3 kb3 Triage Assessment: 20:56 General: Appears in no apparent distress. Behavior is calm, cooperative. Pain: Denies kb3 pain. Historical: - Allergies: 20:56 atorvastatin calcium; kb3 20:56 Lipitor; kb3 20:56 Niacin; kb3 20:56 Niaspan; kb3 20:56 Paxil; kb3 20:56 Tape; kb3 - Home Meds: 20:56 allopurinol 300 mg Oral tab 1 tab once daily [Active]; aspirin 325 mg Oral tab 1 tab kb3 once daily [Active]; Avodart 0.5 mg Oral cap 1 cap once daily [Active]; Brovana 15 mcg/2 mL inhalation nebu 2 mL 2 times per day [Active]; Crestor 20 mg Oral tab 1 tab once daily [Active]; Cymbalta 30 mg Oral cpDR [Active]; Flomax 0.4 mg Oral cp24 1 cap once daily [Active]; glucosamine-chondroitin 750 mg-100 mg- 125 mg-1.65 mg Oral tab [Active]; Lyrica 150 mg Oral 1 cap nightly [Active]; metoprolol tartrate 100 mg Oral tab 1 tab once daily [Active]; Plavix 75 mg Oral tab 1 tab once daily [Active]; Protonix 40 mg Oral TbEC 1 tab once daily [Active]; tramadol 50 mg Oral tab 1 tab every 4 hours [Active]; Trelegy 100 mcg INH, daily [Active]; Trilipix 135 mg Oral cpDR 1 cap once daily [Active]; Vitamin C 1,000 mg Oral tab daily [Active]; - PMHx: 20:56 COPD; Hypertension; Prostate Cancer; Gout; kb3 - PSHx: 20:56 None; kb3 - Immunization history:: Adult Immunizations up to date, Client reports receiving the 2nd dose of the Covid vaccine, Last tetanus immunization: up to date. - Social history:: Smoking status: Patient reports the use of cigarette tobacco products, smokes one pack cigarettes per day. Screenin:15 Abuse screen: Denies threats or abuse. Nutritional screening: No deficits noted. kl Tuberculosis screening: No symptoms or risk factors identified. Fall Risk None identified. Assessment: 21:15 General: Appears in no apparent distress. comfortable, well groomed, well developed, kl Behavior is calm, cooperative. Pain: Denies pain. Neuro: No deficits noted. Level of Consciousness is awake, alert, obeys commands, Oriented to person, place, time, situation. Cardiovascular: No deficits noted. Cardiovascular: Rhythm is sinus rhythm. Respiratory: No deficits noted. GI: No deficits noted. No signs and/or symptoms were reported involving the gastrointestinal system. : No deficits noted. No signs and/or symptoms were reported regarding the genitourinary system. Parent/caregiver report the patient having kidney function tests abnormal also reports elevated potassium. EENT: No deficits noted. No signs and/or symptoms were reported regarding the EENT system. Derm: No deficits noted. No signs and/or symptoms reported regarding the dermatologic system. Vital Signs: 20:53 BP 163 / 73; Pulse 60; Resp 20; Temp 97.8; Pulse Ox 99% ; Weight 89.36 kg; Height 5 ft. kb3 6 in. (167.64 cm); Pain 0/10; 22:00 BP 174 / 70; Pulse 64; Resp 17; Temp 98.3; Pulse Ox 98% on 2 lpm NC; Weight 89.36 kg; wm Height 5 ft. 6 in. (167.64 cm); 12 00:01 BP 153 / 61; Pulse 63; Resp 18; Pulse Ox 95% on 2 lpm NC; kl 03/09 22:00 Body Mass Index 31.80 (89.36 kg, 167.64 cm) ED Course: 03/09 20:19 Patient arrived in ED. dt4 20:40 David Quintero DO is Attending Physician. ms3 20:56 Triage completed. kb3 20:56 Arm band placed on right wrist. kb3 21:45 Initial lab(s) drawn, by me, sent to lab. COVID swab sent to lab. Inserted saline lock: 20 gauge in right antecubital area, using aseptic technique. Blood collected. 22:00 Safety checks: Family/friend present: yes. Bed in low position. Call light in reach. wm Side rails up X2. Placed in gown. Door closed. Lights dimmed. Warm blanket given. Head of bed elevated. Client placed on continuous cardiac and pulse oximetry monitoring. NIBP monitoring applied. materials planning manager on. 22:46 Julio Stratton MD is Hospitalizing Provider. ms3 23:35 CMP Sent. 23:35 Lipase Sent. 23:49 Basic Metabolic Panel Sent. 23:49 Basic Metabolic Panel Sent. 23:49 CBC with Automated Diff Sent. 23:49 CBC with Automated Diff Sent. 12 00:35 No provider procedures requiring assistance completed. Patient admitted, IV remains in kl place. 07:09 Mary Hubbard, RN is Primary Nurse. mb9 Administered Medications: 03/09 23:44 Drug: Calcium Gluconate 1 grams Route: IVPB; Infused Over: 60 mins; Site: right kl antecubital; 23:44 Drug: Kayexalate (polystyrene) 30 grams Route: PO; 03/10 00:34 Follow up: Response: No adverse reaction 03/09 23:44 Drug: NS 0.9% 1000 ml Route: IV; Rate: 75 ml/hr; Site: right antecubital; 03/10 00:34 Follow up: IV Status: Infusion continued upon admission Medication: 00:35 VIS not applicable for this client. Outcome: 03/09 22:46 Decision to Hospitalize by Provider. ms3 03/10 00:35 Admitted to ER Hold. Please see [facility] for further documentation. Condition: stable Discharge instructions given to patient, family, Instructed on the need for admit, Demonstrated understanding of instructions. 13:17 Patient left the ED. mb9 Signatures: Darlin Nickerson, RN RN David Will DO DO ms3 Janay Rodrigues Kelly, RN RN odell3 [address] dt4 Mary Hubbard, RN RN mb9
[2022-03-09] MEDS: NA CHLORIDE 0.9% 1,000 ML IV SCH (23:00)
[2022-03-09] MEDS ORDERED: SOD POLYSTYREN SUL 15 GM/60 ML UCUP ONE (23:26)
[2022-03-09] MEDS ORDERED: CALCIUM GLUCONATE 1 GM IVPB 1 GM/50 ML BAG IV ONE (23:27)
[2022-03-09] MEDS ORDERED: NA CHLORIDE 0.9% 1,000 ML ONE (23:27)
[2022-03-10 00:08] LABS: ALT/SGPT 14 U/L (12-78); AST/SGOT 14 U/L (15-37); Albumin 3.1 g/dL (3.4-5.0); Alkaline Phosphatase 72 U/L (45-117); Bilirubin Total 0.3 mg/dL (0.2-1.0); Lipase 228 U/L (73-393)
[2022-03-10 00:12] LABS: Bilirubin Direct < 0.1 mg/dL (0-0.2)
[2022-03-10 03:17] LABS: Absolute Lymphocytes (CBC) 1.2 K/uL (0.7-4.9); Hematocrit 22.1 % (39.6-49.0); MCV 98.8 fL (80-100); RBC Red Blood Cell Count 2.23 M/uL (4.33-5.43)
[2022-03-10 03:20] VITALS: BMI 31.7
[2022-03-10 03:29] LABS: Potassium 6.3 mmol/L (3.5-5.1)
[2022-03-10] MEDS: ACETAMINOPHEN 500 MG TAB PO PRN ×2 (07:29→17:11)
[2022-03-10] MEDS ORDERED: ACETAMINOPHEN 500 MG TAB ONE (07:32)
[2022-03-10] MEDS ORDERED: SOD POLYSTYREN SUL 15 GM/60 ML UCUP PO STA (08:22)
[2022-03-10] MEDS ORDERED: ALBUTEROL 2.5 MG/3 ML NEB SOL IH PRN (08:25)
[2022-03-10] MEDS ORDERED: ALBUTEROL INHALER 60 PUFF/8 GM IH PRN (08:25)
[2022-03-10] MEDS ORDERED: METOPROLOL XL 50 MG TAB PO ONE (09:00)
[2022-03-10] MEDS: METOPROLOL XL 50 MG TAB PO SCH (09:00)
[2022-03-10] MEDS: PANTOPRAZOLE 40MG TABLET PO SCH (09:00)
[2022-03-10] MEDS: PREGABALIN 150 MG CAP PO SCH (09:00)
[2022-03-10] MEDS ORDERED: DULOXETINE 20 MG CAP PO SCH (09:00)
[2022-03-10] MEDS: HOME MED 1 EA UNK (Fluticasone/Umeclidin/Vilanter [Trelegy Ellipta 100-62.5-25] Blst.W.Dev IH SCH (09:00)
[2022-03-10] MEDS: DUTASTERIDE 0.5 MG GEL CAP PO SCH (09:00)
[2022-03-10] MEDS ORDERED: PANTOPRAZOLE 40MG TABLET PO ONE (09:00)
[2022-03-10] MEDS: DULOXETINE 30 MG CAP PO SCH (09:00)
[2022-03-10] MEDS: TAMSULOSIN 0.4 MG SR CAP PO SCH (09:00)
[2022-03-10] MEDS: allopurinoL 300 MG TAB PO SCH (09:00)
[2022-03-10] MEDS ORDERED: PREGABALIN 75 MG CAP PO ONE (09:01)
[2022-03-10] MEDS ORDERED: SOD POLYSTYREN SUL 15 GM/60 ML UCUP ONE (09:01)
[2022-03-10] MEDS ORDERED: TAMSULOSIN 0.4 MG SR CAP ONE (09:01)
[2022-03-10] MEDS ORDERED: DULOXETINE 30 MG CAP PO ONE (09:02)
[2022-03-10] MEDS ORDERED: ARFORMOTEROL TARTRATE 15 MCG/2 ML VIAL.NEB ONE (09:39)
[2022-03-10] MEDS: ARFORMOTEROL TARTRATE 15 MCG/2 ML VIAL.NEB IH SCH ×2 (09:40→21:00)
[2022-03-10] MEDS ORDERED: ALBUTEROL 2.5 MG/3 ML NEB SOL ONE (09:44)
[2022-03-10 10:22] LABS: Ferritin 94.9 ng/mL (26-388)
[2022-03-10] MEDS ORDERED: NA CHLORIDE 0.9% 500 ML ONE (10:44)
--- NOTE | 2022-03-10 11:20 | P.HP ---
Certification for Inpatient Patient admitted to: Inpatient With expected LOS: >2 Midnights Practitioner: I am a practitioner with admitting privileges, knowledge of patient current condition, hospital course, and medical plan of care. Services: Services provided to patient in accordance with Admission requirements found in Title 42 Section 412.3 of the Code of Federal Regulations Patient History Date of Service: 03/10/22 Reason for admission: HIGH K, LOW MAG, ARC. History of Present Illness: MR ONEILL IS A HEAVY SMOKER WITH COPD, CAD, PAD, OBESITY, EDEMA WHO HAD LAB DONE AT [facility] AND I SAW HIS K WAS 6.4, MAG LOW AT 1.2 AND CKD WORSE AT 3.4 CREAT. I ASKED HIM TO COME TO ER AND GET ADMITTED. I DISCUSSED CASE WITH DR. LEANDRA FARR. HE WAS GIVEN A DOSE OF KAYEXALATE AND STARTED ON IV FLUIDS. HE ALSO HAD A DOSE OF CALCIUM GLUCONATE. I SAW HIM THIS AM AN DISCUSSED WITH HIM AND . HE WILL STOP SPIRONOLACTONE. 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 Allergies niacin [From Niaspan Extended-Release] Allergy (Mild, Verified 11/07/21 00:17) Nausea/Vomiting paroxetine HCl [From Paxil] Allergy (Mild, Verified 11/07/21 00:17) Itching/Hives/Rash atorvastatin calcium [From Lipitor] Adverse Reaction (Intermediate, Verified 11/07/21 00:17) Muscle weakness paper tape Adverse Reaction (Uncoded 11/07/21 00:17) Rash Home Medications: Clopidogrel Bisulfate [Plavix*] 75 mg PO DAILY 06/30/12 Tamsulosin [Flomax*] 0.4 mg PO DAILY 06/30/12 allopurinoL [Allopurinol] 300 mg PO DAILY 11/30/13 Pantoprazole Sodium [Protonix] 1 tab PO DAILY 12/02/13 Aspirin 325 mg PO DAILY 11/03/17 Rosuvastatin [Crestor*] 20 mg PO BEDTIME 11/03/17 Albuterol Inhaler [Ventolin Inhaler*] 2 puff IH Q6H PRN 07/23/18 Duloxetine [Cymbalta *] 30 mg PO DAILY 07/23/18 Fluticasone/Umeclidin/Vilanter [Trelegy Ellipta 100-62.5-25] 1 each IH DAILY 07/23/18 Albuterol Neb [Proventil 0.083% Neb Soln] 1 unit IH Q6HP PRN 06/25/21 Arformoterol Tartrate [Brovana] 1 unit IH BID 06/25/21 Dutasteride [Avodart*] 1 tab PO DAILY 06/25/21 Metoprolol Succinate [Toprol Xl] 100 mg PO DAILY 06/25/21 Pregabalin [Lyrica] 150 mg PO DAILY 11/07/21 dexAMETHasone [Decadron*] 4 mg PO DAILY #7 tab 11/09/21 - Past Medical/Surgical History Has patient received pneumonia vaccine in the past: Yes Diabetic: No -: HTN -: Gout -: Ley's Cyst -: Prostate CA -: Kidney dx -: Cardiac cath x2 w/stent placement -: R illiac & coronary stents - Social History Smoking Status: Former smoker Alcohol use: No CD- Drugs: No Caffeine use: No Place of Residence: Home Review of Systems 10-point ROS is otherwise unremarkable General: As per HPI Other: HE HAS FALLEN FROM [facility] [place] [facility]. HE IS NOT IN THE BEST SHAPE BUT HE WANTS TO DO ALL USUAL ACTIVITIES. Physical Examination - Vital Signs Temperature: 98.3 F Blood Pressure: 164/60 Pulse: 66 Respirations: 19 Pulse Ox (%): 96 - Physical Exam General: Oriented x3, Mild distress, Obese HEENT: Atraumatic, PERRLA, Mucous membr. moist/pink, EOMI, Sclerae nonicteric Neck: Supple, 2+ carotid pulse no bruit, No LAD, Without JVD or thyroid abnormality Respiratory: Clear to auscultation bilaterally, Normal air movement Cardiovascular: Regular rate/rhythm, Normal S1 S2 Gastrointestinal: Normal bowel sounds, No tenderness Musculoskeletal: No tenderness, Other (TORN R SIDE BICEPS TENDON AFTER THE FALL ABOVE. HE IS NOT SURGICAL CANDIDATE.) Integumentary: No rashes Neurological: Normal gait, Normal speech, Normal strength at 5/5 x4 extr, Normal tone, Normal affect Lymphatics: No axilla or inguinal lymphadenopathy - Studies Laboratory Data (last 24 hrs) 03/09/22 21:45: Sodium Cancelled, Potassium Cancelled, BUN Cancelled, Creatinine Cancelled, Glucose Cancelled, Total Bilirubin 0.3, AST 14 L, ALT 14, Alkaline Phosphatase 72, Lipase 228 03/09/22 21:45: Sodium 141, Potassium 6.1 H*, BUN 49 H, Creatinine 3.10 H, Glucose 120 H 03/09/22 21:45: WBC 7.70, Hgb 9.1 L, Hct 27.6 L, Plt Count 217 Assessment and Plan - Problems (Diagnosis) (1) Hypomagnesemia Current Visit: Yes Status: Acute Plan: REPLACE MG. STOP SPIRONOLACTONE FOR NOW. (2) Acute on chronic renal failure Current Visit: No Status: Chronic Plan: BASELINE CREAT IS 2.5. NOW IT IS HIGHER TO 3.4 IV SHOUDL HELP. Qualifiers: Acute renal failure type: with acute renal cortical necrosis (3) Hyperkalemia Current Visit: No Status: Acute Plan: KAYEXALATE IV FLUIDS. THERE IS NO ACUTE SYMPTOM FROM IT CONSULT NEPHROLOGY - Advance Directives Does patient have a Living Will: No Does patient have a Durable POA for Healthcare: No
[2022-03-10] MEDS: NA CHLORIDE 0.9% 1,000 ML IV SCH (12:20)
[2022-03-10] MEDS ORDERED: ALBUTEROL 2.5 MG/3 ML NEB SOL NEB ONE (12:52)
--- NOTE | 2022-03-10 13:02 | P.CNS ---
Date of Consult: 03/10/22 Reason for Consult: EMIGDIO , hyperkalemia Chief Complaint: HIGH K, LOW MAG, ARC. History of Present Illness: A 76 Y/o man with PMHx of active tobacco use, CAD S/p PCI on ASA and plavix, PVD , HTN CKD IIIb/IV baseline Cr ~2.8 pt sent for abnormal labs pt had routine labs yesterday that showed high potassium level , pt sent to ER in ER Cr 3.1, K 6.1, pt had HX of progressive CKD his cr slowly progressing from 1.5 to 2.8 in June , he laso had hx of hyperkalemia in the past , pt is on aldactone , denied NSAID intake , pt have constipation, he eats banana ROS General : denies fever, chills, WT change weakness, insomnia HEENT: Denies dry, vision changes and headache Resp: denies SOB, cough or wheezes Cardiovascular: denied chest pain, palpitation , no SOB GI: Constipated , denies abdominal pain, diarrhea : denies dysuria, urgency, foamy urine or blood tinged urine Musculoskeletal: denies muscle aches, joint pain Endo: denies polyuria and and polydipsia Extre: denies pain numbness and swelling Physical exam General: AAOx3, NAD, obese HEENT PERRLA, moist mucose membrane neck: supple, no elevated JVD CHEST; CTAB, no wheezes or rales HEART : RRR. Normal S1,2 no murmur or rub Abd: soft, Nt Ext: no edema Skin : No rash daily A/p #EMIGDIO on CKD IIIb/IV vs progressive CKD HX of progressive CKD his cr slowly progressing from 1.5 to 2.8 in June will change fluid to bicarbonate drip renal diet renal dose medicattion need to r/o light chain disease SPEP/ UPEPsent #hyperkalemia likely due to EMIGDIO +/- Aldactone +/- RTA need to R/o RTA f/u urine labs , SPEP/UPEP low k diet will start Lokelma and Birbanoate drip wrapper hand #Hypercholremic metabolic acidosis will start on bicarbonate drip #Anemia of chronic disease F/U iron panel S/p PRBC Total time spent 65 minutes including documentation, reviewing labs , placing orders and discussing with medical team Allergies niacin [From Niaspan Extended-Release] Allergy (Mild, Verified 11/07/21 00:17) Nausea/Vomiting paroxetine HCl [From Paxil] Allergy (Mild, Verified 11/07/21 00:17) Itching/Hives/Rash atorvastatin calcium [From Lipitor] Adverse Reaction (Intermediate, Verified 11/07/21 00:17) Muscle weakness paper tape Adverse Reaction (Uncoded 11/07/21 00:17) Rash Home Medications: Clopidogrel Bisulfate [Plavix*] 75 mg PO DAILY 06/30/12 Tamsulosin [Flomax*] 0.4 mg PO DAILY 06/30/12 allopurinoL [Allopurinol] 300 mg PO DAILY 11/30/13 Pantoprazole Sodium [Protonix] 1 tab PO DAILY 12/02/13 Aspirin 325 mg PO DAILY 11/03/17 Rosuvastatin [Crestor*] 20 mg PO BEDTIME 11/03/17 Albuterol Inhaler [Ventolin Inhaler*] 2 puff IH Q6H PRN 07/23/18 Duloxetine [Cymbalta *] 30 mg PO DAILY 07/23/18 Fluticasone/Umeclidin/Vilanter [Trelegy Ellipta 100-62.5-25] 1 each IH DAILY 07/23/18 Albuterol Neb [Proventil 0.083% Neb Soln] 1 unit IH Q6HP PRN 06/25/21 Arformoterol Tartrate [Brovana] 1 unit IH BID 06/25/21 Dutasteride [Avodart*] 1 tab PO DAILY 06/25/21 Metoprolol Succinate [Toprol Xl] 100 mg PO DAILY 06/25/21 Pregabalin [Lyrica] 150 mg PO DAILY 11/07/21 dexAMETHasone [Decadron*] 4 mg PO DAILY #7 tab 11/09/21 - Past Medical/Surgical History Diabetic: No -: HTN -: Gout -: Ley's Cyst -: Prostate CA -: Kidney dx -: Cardiac cath x2 w/stent placement -: R illiac & coronary stents - Social History Smoking Status: Current every day smoker Alcohol use: No CD- Drugs: No Caffeine use: No Place of Residence: Home Physical Examination Temp Pulse Resp BP Pulse Ox 98.3 F 66 19 164/60 H 96 03/10/22 11:25 03/10/22 11:25 03/10/22 11:25 03/10/22 11:25 03/10/22 11:25 Laboratory Data (last 24 hrs) 03/09/22 21:45: Sodium Cancelled, Potassium Cancelled, BUN Cancelled, Creatinine Cancelled, Glucose Cancelled, Total Bilirubin 0.3, AST 14 L, ALT 14, Alkaline Phosphatase 72, Lipase 228 03/09/22 21:45: Sodium 141, Potassium 6.1 H*, BUN 49 H, Creatinine 3.10 H, Glucose 120 H 03/09/22 21:45: WBC 7.70, Hgb 9.1 L, Hct 27.6 L, Plt Count 217
[2022-03-10] MEDS ORDERED: NA CHLORIDE 0.9% 250 ML ONE (15:00)
[2022-03-10] MEDS: SODIUM ZIRCONIUM CYCLOSILICATE 10 GM/PKT PO SCH ×2 (15:12→20:12)
[2022-03-10 15:24] LABS: Potassium 5.2 mmol/L (3.5-5.1)
[2022-03-10 15:48] LABS: Magnesium 1.1 mg/dL (1.8-2.4)
[2022-03-10] MEDS: D5W 1,000 ML with NA BICARB 8.4% 75 MEQ IV SCH ×2 (18:46)
--- NOTE | 2022-03-10 19:16 | RAD REPORT ---
EXAM DESCRIPTION: US - Renal Ultrasound-Complete - 03/10/2022 6:45 pm CLINICAL HISTORY: Acute renal insufficiency COMPARISON: June 2021 FINDINGS: The right kidney measures 12 cm with a normal echotexture. 12.4 centimeter cyst The left kidney measures 10 cm with a normal echotexture. 14 centimeter cyst Additional bilateral smaller renal cysts Hydronephrosis is not seen. No gross abnormality of bladder IMPRESSION: No hydronephrosis Bilateral renal cysts
[2022-03-10 19:27] LABS: UR PROTEIN 219.2 mg/dL (<11.9); Urine Protein/Creatinine Ratio 2.77 ratio (<0.15)
[2022-03-10 19:35] LABS: Specific Gravity 1.013 (1.005-1.030); Urine Bacteria <20 /HPF (<20); Urine Bilirubin NEGATIVE (Negative); Urine Blood Negative (Negative); Urine Clarity Clear (Clear); Urine Color Light-Yellow (Yellow); Urine Glucose TRACE (Negative); Urine Mucus Slight /HPF (None Seen); Urine Protein 2+ (Negative); Urine RBC <5 /HPF (None Seen); Urine Urobilinogen Normal (Normal)
[2022-03-10] MEDS ORDERED: Magnesium Sulfate 2gm IVPB 2 G/50 ML BAG IV ONE (20:00)
[2022-03-10] MEDS ORDERED: ROSUVASTATIN 10 MG TAB PO SCH (21:00)
[2022-03-10 22:08] LABS: Hematocrit 26.9 % (39.6-49.0)
[2022-03-10] MEDS ORDERED: MAGNESIUM SULFATE 1 gm IVPB 1 GM/100 ML BAG IV ONE (23:16)
[2022-03-11] MEDS: D5W 1,000 ML with NA BICARB 8.4% 75 MEQ IV SCH ×4 (05:22→05:35)
[2022-03-11 06:01] LABS: Hematocrit 27.5 % (39.6-49.0); Lymphocytes % 17.6 % (15.3-44.8); MCV 95.3 fL (80-100); MPV 9.1 fL (7.6-11.3); RBC Red Blood Cell Count 2.89 M/uL (4.33-5.43)
[2022-03-11 06:07] LABS: Magnesium 1.8 mg/dL (1.8-2.4); Potassium 4.9 mmol/L (3.5-5.1)
[2022-03-11] MEDS ORDERED: MAGNESIUM SULFATE 1 gm IVPB 1 GM/100 ML BAG IV ONE (06:09)
[2022-03-11 08:33] VITALS: BP 177/84; TEMP 98.6
[2022-03-11] MEDS: DUTASTERIDE 0.5 MG GEL CAP PO SCH (08:47)
[2022-03-11] MEDS: allopurinoL 300 MG TAB PO SCH (08:47)
[2022-03-11] MEDS: PANTOPRAZOLE 40MG TABLET PO SCH (08:47)
[2022-03-11] MEDS: TAMSULOSIN 0.4 MG SR CAP PO SCH (08:47)
[2022-03-11] MEDS: PREGABALIN 150 MG CAP PO SCH (08:47)
[2022-03-11] MEDS: HOME MED 1 EA UNK (Fluticasone/Umeclidin/Vilanter [Trelegy Ellipta 100-62.5-25] Blst.W.Dev IH SCH (08:49)
[2022-03-11] MEDS: SODIUM ZIRCONIUM CYCLOSILICATE 10 GM/PKT PO SCH (08:49)
[2022-03-11] MEDS: DULOXETINE 30 MG CAP PO SCH (08:49)
[2022-03-11] MEDS ORDERED: METOPROLOL XL 50 MG TAB PO SCH (08:52)
[2022-03-11] MEDS: METOPROLOL XL 50 MG TAB PO SCH (08:53)
[2022-03-11] MEDS: ARFORMOTEROL TARTRATE 15 MCG/2 ML VIAL.NEB IH SCH (09:43)
--- NOTE | 2022-03-11 09:46 | P.DS ---
Admission Date: 03/10/22 Discharge Date: 03/11/22 Disposition: ROUTINE DISCHARGE Discharge Condition: FAIR Reason for Admission: HIGH K, LOW MAG, ARC. - Problems (1) Hypomagnesemia Current Visit: Yes Status: Acute (2) Acute on chronic renal failure Current Visit: No Status: Chronic Qualifiers: Acute renal failure type: with acute renal cortical necrosis (3) Hyperkalemia Current Visit: No Status: Acute Brief History of Present Illness: MR ONEILL IS A HEAVY SMOKER WITH COPD, CAD, PAD, OBESITY, EDEMA WHO HAD LAB DONE AT [facility] AND I SAW HIS K WAS 6.4, MAG LOW AT 1.2 AND CKD WORSE AT 3.4 CREAT. I ASKED HIM TO COME TO ER AND GET ADMITTED. I DISCUSSED CASE WITH DR. LEANDRA FARR. HE WAS GIVEN A DOSE OF KAYEXALATE AND STARTED ON IV FLUIDS. HE ALSO HAD A DOSE OF CALCIUM GLUCONATE. I SAW HIM THIS AM AN DISCUSSED WITH HIM AND . HE WILL STOP SPIRONOLACTONE. HE WAS ADVISED TO GO TO SUBCONTRACT ADMINISTRATOR BUT HE NEVER DID. Hospital Course: MR. ONEILL WAS BROUGHT IN FOR HIGH K AND CKD. K IS BETTER AFTER THERAPY. HE WILL NOT TAKE SPIRONOLACTONE ANY LONGER. WE REDUCED METOPROLOL HR IS LOW. WE ADDED HYDRALAZINE FOR BP CONTROL. HE CAN'T TAKE BAILEY, ARB AND CCB WITH POTENTIAL SIDE EFFECTS. HE IS STABLE TO GO HOME. HE HAD TWO UNITS OF PRBCS AND WILL GET EPOGEN FROM RENAL DOCTORS. WILL ALSO TAKE HIM TO DR. INIGUEZ. I STOPPED ASPRIN AND CONTINUE ONLY PLAVIX. Vital Signs/Physical Exam: Temp Pulse Resp BP Pulse Ox 98.6 F 50 16 177/84 H 93 03/11/22 08:00 03/11/22 08:53 03/11/22 08:00 03/11/22 08:53 03/11/22 08:00 General: Alert, In no apparent distress HEENT: Atraumatic, PERRLA, EOMI Neck: Supple, JVD not distended Respiratory: Clear to auscultation bilaterally, Normal air movement Cardiovascular: Regular rate/rhythm, Normal S1 S2 Gastrointestinal: Normal bowel sounds, No tenderness Musculoskeletal: No tenderness Integumentary: No rashes Neurological: Normal speech, Normal tone, Normal affect Lymphatics: No axilla or inguinal lymphadenopathy Laboratory Data at Discharge: WBC 5.40 K/uL (4.3-10.9) 03/11/22 05:31 Hgb 9.3 g/dL (13.6-17.9) L 03/11/22 05:31 Hct 27.5 % (39.6-49.0) L 03/11/22 05:31 Plt Count 145 K/uL (152-406) L 03/11/22 05:31 Sodium 142 mmol/L (136-145) 03/11/22 05:31 Potassium 4.9 mmol/L (3.5-5.1) 03/11/22 05:31 BUN 50 mg/dL (7-18) H 03/11/22 05:31 Creatinine 3.18 mg/dL (0.55-1.3) H 03/11/22 05:31 Glucose 91 mg/dL (74-106) 03/11/22 05:31 Magnesium 1.8 mg/dL (1.8-2.4) 03/11/22 05:31 Total Bilirubin 0.3 mg/dL (0.2-1.0) 03/09/22 21:45 AST 14 U/L (15-37) L 03/09/22 21:45 ALT 14 U/L (12-78) 03/09/22 21:45 Alkaline Phosphatase 72 U/L (45-117) 03/09/22 21:45 Lipase 228 U/L (73-393) 03/09/22 21:45 Home Medications: Clopidogrel Bisulfate [Plavix*] 75 mg PO DAILY 06/30/12 Tamsulosin [Flomax*] 0.4 mg PO DAILY 06/30/12 allopurinoL [Allopurinol] 300 mg PO DAILY 11/30/13 Pantoprazole Sodium [Protonix] 1 tab PO DAILY 12/02/13 Rosuvastatin [Crestor*] 20 mg PO BEDTIME 11/03/17 Albuterol Inhaler [Ventolin Inhaler*] 2 puff IH Q6H PRN 07/23/18 Duloxetine [Cymbalta *] 30 mg PO DAILY 07/23/18 Fluticasone/Umeclidin/Vilanter [Trelegy Ellipta 100-62.5-25] 1 each IH DAILY 07/23/18 Albuterol Neb [Proventil 0.083% Neb Soln] 1 unit IH Q6HP PRN 06/25/21 Arformoterol Tartrate [Brovana] 1 unit IH BID 06/25/21 Dutasteride [Avodart*] 1 tab PO DAILY 06/25/21 Pregabalin [Lyrica] 150 mg PO DAILY 11/07/21 Hydralazine HCl 50 mg PO BID #180 03/11/22 Metoprolol Succinate 25 mg PO DAILY #90 03/11/22 New Medications: Hydralazine HCl 50 mg PO BID #180 Metoprolol Succinate 25 mg PO DAILY #90 Followup: NONE,NONE [Primary Care Provider] -
[2022-03-11 10:39] VITALS: O2SAT 90
--- NOTE | 2022-03-12 13:53 | EKG ---
Test Date: 2022-03-10 Test Time: 02:47:00 Raw Material Handler: TANA MEASUREMENT RESULTS: Intervals: Rate: 58 WV: 172 QRSD: 78 QT: 396 QTc: 388 Hamel: P: 76 WV: 172 QRS: 73 T: 83 INTERPRETIVE STATEMENTS: Sinus bradycardia Otherwise normal ECG Compared to ECG 11/06/2021 20:28:05 Sinus rhythm no longer present Electronically Signed On 03-12-22 13:50:10 LEATHER SORTER by Bryn Dacosta
[2022-03-14 06:02] LABS: Albumin, (SPE) 2.7 g/dL (3.8-4.8); Alpha-1-Globulins 0.3 g/dL (0.2-0.3); Alpha-2-Globulins 0.7 g/dL (0.5-0.9); Gamma Globulins 0.7 g/dL (0.8-1.7); INTERPRETATION Consistent with
== END 2022-03-11 11:23 | disposition home or self-care (01) | DRG 640 ==
LOC: ER 20:12 → ERHOLD 22:55 → 4TH 03-10 12:48 → OBSVTOIN 03-10 15:09
PROVIDERS: ADMIT Internal Medicine; ATTEND Internal Medicine
PROC: 30233N1 Transfusion of Nonautologous Red Blood Cells into Peripheral Vein, Percutaneous Approach (ICD-10-PCS; principal; 2022-03-10)
DX: E87.5 Hyperkalemia (principal); N17.1 Acute kidney failure with acute cortical necrosis; N18.4 Chronic kidney disease, stage 4 (severe); I12.9 Hypertensive chronic kidney disease with stage 1 through stage 4 chronic kidney disease, or unspecified chronic kidney disease; D63.1 Anemia in chronic kidney disease; E83.42 Hypomagnesemia; E86.0 Dehydration; J44.9 Chronic obstructive pulmonary disease, unspecified; M10.9 Gout, unspecified; E87.20 Acidosis, unspecified; I73.9 Peripheral vascular disease, unspecified; K59.00 Constipation, unspecified; E66.9 Obesity, unspecified; D63.8 Anemia in other chronic diseases classified elsewhere; I25.10 Atherosclerotic heart disease of native coronary artery without angina pectoris; F17.210 Nicotine dependence, cigarettes, uncomplicated; Z88.8 Allergy status to other drugs, medicaments and biological substances; Z95.5 Presence of coronary angioplasty implant and graft; Z68.31 Body mass index [BMI] 31.0-31.9, adult; Z79.02 Long term (current) use of antithrombotics/antiplatelets; Z79.82 Long term (current) use of aspirin; Z85.46 Personal history of malignant neoplasm of prostate; Z79.899 Other long term (current) drug therapy; Z91.048 Other nonmedicinal substance allergy status; Z20.822 Contact with and (suspected) exposure to COVID-19
CPT/HCPCS: 36415; 36430; 76770; 80048; 80076; 81001; 82435; 82550; 82570; 82607; 82728; 83540; 83690; 83735; 83935; 83970; 84132; 84156; 84165; 84300; 84443; 84466; 85014; 85018; 85025; 86850; 86900; 86901; 87811; 93005; 94640; 96361; 96374; 99285; G0378; J0610; J3475; J7030; J7040; J7050; J7605; J7613; P9016

== ENCOUNTER 2022-04-30 16:24 | Emergency (ER) | payer OTHER ==
--- OUTSIDE RECORDS SUMMARY | 2022-04-30 16:28 | XMS REPORT | Continuity of Care Document ---
:[address] [facility] t Address [address] [place] [address] Care Team Providers Name Role Phone CHEPE RAMANDEEP Primary Care Physician Unavailable JORGE L HUA Attending Clinician Unavailable TRES JERONIMO Attending Clinician Unavailable Tres Jeronimo MD Attending Clinician Doctor Unassigned, [place] Attending Clinician Unavailable Pob, [facility] Main Attending Clinician Unavailable TRES JERONIMO Admitting Clinician Unavailable Tres Jeronimo MD Admitting Clinician Payers Payer Name Policy Type Policy Number Effective Date Expiration Date karen MEDICARE PART A [id number] 2008 \T\ B 00:00:00 PHYSICIAN MUTUAL [id number] 2008 00:00:00 Problems Condition Condition Condition Status [...] Hallucinates 2020-04 Un elizabeth NE HCL INGREDI 1-16 ity of 00:00: [place] 00 [...] 2020-04 Univers ne Hcl ty to ns 1-16 ity of adverse 00:00: [place] reaction 00 Medical s Branch Paroxeti Drug Active PARADOXIC [facility] Hcl Intolera 1-20 AL RXN [facility] Center Adhesive Drug Active Rash USE PAPER [facility] Tape Allergy -19 TAPE ONLY [facility] 00 Center Atorvast Drug Active [facility] atin Allergy -19 [facility] 00:[facility] Medical 00 Center Niacin Drug Active [facility] Allergy 1-19 [facility] NO KNOWN Drug Active Univers ALLERGIE Class ity of S [facility] Social History Social Habit Start Date Stop Date Quantity Comments Source Exposure to Not sure University of SARS-CoV-2 [facility] (event) Branch Tobacco Comment 2021-03-15 2021-03-15 smoker for Universit y of 00:00:00 00:00:00 greater than 40 [place] Med ical yhears [place] Tobacco use and 2021-02-21 2021-02-21 Current user Univers ity of exposure 00:00:00 00:00:00 [facility] Alcohol intake 2015-09-14 2015-09-14 Current drinker MAIKEL S t [facility] 00:00:00 00:00:00 of [facility] (finding) Sex Ass[birth year] At [birth year] Universit y of 00:00:00 00:00:00 [facility] Smoking Status Start Date Stop Date Source Unknown [facility] Current every day smoker 2021-02-21 00:00:00 Uni versity of [facility] Medications Ordered Filled Start Stop Current Ordering Indication Dosage Frequency Signature Comments Components Source Medication Medication Date Date Medication? Clinician (SIG) Name Name NaCl 0.9% 2020-04- No PRN, Univers (NS) 05-17 Starting ity of injection 18:54: 19:46 on Elisa [place] 00 :23 21 at Medical 1254, Branch [...] Starting ity of amethasone 17:07: 19:[facility]23 03/16/21 at [facility] ical 3.5 1107, Branch mg/g-10,000 Until [facility] unit/g-0.1 03/16/21 at % 1346, ophthalmic Routine, ointment Intra-op gentamicin 2020-04 Yes PRN, Univers injection 05-17 Starting ity of 17:06: on [facility] 03/16/21 at [facility] 1106, Branch Until Discontinu ed, GRANT, Intra-op dexamethaso 2020-04 Yes PRN, Univer s ne 05-17 Starting ity of (DECADRON 17:06: on [facility] PHOSPHATE) 00 03/16/21 at [facility] ical injection 1106, Branch Until Discontinu ed, Routine, Intra-op ceFAZolin 2020-04 Yes PRN, Univers (ANCEF) 05-17 Starting ity of injection 17:06: on [facility] 00 03/16/21 at [facility] 1106, Branch Until Discontinu ed, GRANT, Intra-op gentamicin 2020-04- No PRN, Univer s injection 05-17 Starting ity o f 17:06: 19:46 on [facility] [place] 00 :23 03/16/21 at Medical [...] Elisa [place] 4-3 % 00 03/16/21 at [facility] (40-30 1058, Branch mg/mL) Until injection Discontinu [...] Elisa [place] ELASTIC) 3 00 03/16/21 at [facility] ical %-4 %(0.5 1040, Branch mL) 1 % Until (0.55 mL) Discontinu intraocular ed, injection Routine, Intra-op balanced 2020-04 Yes PRN, Univers salt soln 05-17 Starting ity of no.2 irrig. 16:40: on [place] (BSS) 00 03/16/21 at Medical ophthalmic 1040, Branch solution Until Discontinu ed, Routine, Intra-op DUOVISC 2020-04- No PRN, Univers (DUOVISC 05-17 Starting ity of VISCO 16:40: 19:46 on Elisa [place] ELASTIC) 3 00 :23 03/16/21 at [facility] ica %-4 %(0.5 1040, Branch mL) 1 % Until Elisa (0.55 mL) 03/16/21 at intraocular 1346, injection Routine, Intra-op balanced 2020-04- No PRN, Univers salt soln 05-17 Starting ity o f no.2 irrig. 16:40: 19:46 on Elisa Jeremi as (BSS) 00 :23 03/16/21 at [facility] 1040, [place] solution Until Elisa 03/16/21 at 1346, Routine, Intra-op tetracaine 2020-04 Yes PRN, Univers (PONTOCAINE 05-17 Starting ity of ) 0.5 % 16:35: on Elisa [place] ophthalmic 00 03/16/21 at [facility] ical drops 1035, [place] Until Discontinu ed, Routine, Intra-op tetracaine 2020-04- No PRN, Univer s (PONTOCAINE 05-17 Starting ity of ) 0.5 % 16:35: 19:46 on Elisa [place] ophthalmic 00 :23 03/16/21 at [facility] ical drops 1035, Branch Until Elisa 03/16/21 at 1346, Routine, Intra-op eye block 2020-04 Yes PRN, Univers syringe 05-17 Starting ity o f mL 16:31: on Elisa [place] 00 03/16/21 at [facility] 103, Branch Until Discontinu ed, Intra-op eye block 2020-04- No PRN, Univers syringe 11 05-17 Starting ity of mL 16:31: 19:46 on Elisa [place] 00 :23 03/16/21 at [facility] 1031, Branch Until Elisa 03/16/21 at 1346, [...] [place] mg/mL) 00 :23 03/16/21 at [facility] (ADRENALIN 1023, Branch (PF)) Until Elisa injection 03/16/21 at 1346, Routine, Intra-op cyclopent 2020-04- No .5mL 0.5 mL, Univ ers 1%-tropic 05-17 Left Eye, ity of 1%-phenyl 14:45: 14:39 ONCE, 1 [place] 2.5%-ketor 00 :00 dose, On Medic al 0.5% Elisa Branch (MYDRIATIC 03/16/21 at #5) 0845, ophthalmic Routine, solution DSU Pre-op syringe 0.5 mL lactated 2020-04 No 1000mL at 42 Unive rs ringers [...] Yes 1mL 1 mL, Univers 1% (PF) 2- Infiltrati ity of (XYLOCAINE) 14:34: on, PRN, [place] injection 1 41 Starting Medi ricki mL on Elisa Branch 03/16/21 at 0834, Until Discontinu ed, Routine, Surgery/Pr ocedure, DSU Pre-op lidocaine 2020-04 No 1mL 1 mL, Univer s 1% (PF) 2- 1209 Infiltrati ity o f (XYLOCAINE) 14:34: 19:46 on, PRN, [place] injection 1 41 :23 Starting Medi ricki mL on Elisa Branch 03/16/21 at 0834, Until Elisa 03/16/21 at 1346, Routine, Surgery/Pr ocedure, DSU Pre-op allopurinoL 2020-04 Yes 300mg Take 300 U nivers 300 mg 2-09 mg by ity of tablet 11:46: mouth [place] 22 daily. [facility] Branch dutasteride 2020-04 Yes .5mg Take 0.5 Un elizabeth (AVODART) 2-09 mg by ity of 0.5 mg 11:46: mouth [place] capsule 22 daily. [facility] Branch aspirin 81 2020-04 Yes 81mg Take 81 mg U nivers mg Cap 2-09 by mouth ity of 11:46: daily. [address] rosuvastati 2020-04 Yes 20mg Take 20 mg Univers n (CRESTOR) 2-09 by mouth ity of 20 mg 11:46: at [place] tablet 22 bedtime. [facility] Branch DULoxetine 2020-04 Yes 30mg Take 30 mg U nivers (CYMBALTA) 2-09 by mouth ity o f 30 mg 11:46: daily. [address] Branch tamsulosin 2020-04 Yes Take by [facility] ers 0.4 mg 24 2-09 mouth ity of hr capsule 11:46: daily. [address] pregabalin 2020-04 Yes 150mg Take 150 Un elizabeth (LYRICA) 2-09 mg by ity of 150 mg 11:46: mouth 2 [place] capsule 22 (two) Medical times Branch daily. metoprolol 2020-04 Yes Take by [facility] ers succinate 2-09 mouth. ity of 100 mg CSpX 11:46: [place] 22 Medical Branch clopidogreL 2020-04 Yes 75mg Take 75 mg Univers (PLAVIX) 75 2-09 by mouth ity of mg tablet 11:46: daily. [address] Branch Pantoprazol 2020-04 Yes 40mg Take 40 mg Univers e 2-09 by mouth ity of (PROTONIX) 11:46: daily. [place] 40 [facility] Medical delayed-rel Branch ease suspension fluticasone 2020-04 Yes Inhale. [facility] vers -umeclidin- 2-09 ity of vilanter 11:46: [place] (TRELEGY 22 Medical ELLIPTA) Branch 100-62.5-25 mcg DsDv Vitamin E 2020-04 Yes Take by [facility] rs 100 2-09 mouth. ity of unit/0.25 11:46: [place] mL Drop Medical Branch albuterol 2020-04 Yes 1{ampul Use 1 Univ ers 1.25 mg/3 2-09 e} Ampule as ity o f mL 11:46: directed [place] nebulizer 22 every 6 Medical solution (six) Branch hours as needed for Wheezing. arformotero 2020-04 Yes 15ug Use 15 mcg Univers L (BROVANA) 2-09 as ity of 15 mcg/2 mL 11:46: directed 2 [place] nebulizer 22 (two) Medical solution times Branch daily. allopurinoL 2020-04 Yes 300mg Take 300 U nivers 300 mg 2-09 mg by ity of tablet 11:46: mouth [place] 22 daily. Medical Branch dutasteride 2020-04 Yes .5mg Take 0.5 Un elizabeth (AVODART) 2-09 mg by ity of 0.5 mg 11:46: mouth [place] capsule 22 daily. Medical Branch aspirin 81 2020-04 Yes 81mg Take 81 mg U nivers mg Cap 2-09 by mouth ity of 11:46: daily. [place] [address] Medical Branch rosuvastati 2020-04 Yes 20mg Take 20 mg Univers n (CRESTOR) 2-09 by mouth ity of 20 mg 11:46: at [place] tablet 22 bedtime. Medical Branch DULoxetine 2020-04 Yes 30mg Take 30 mg U nivers (CYMBALTA) 2-09 by mouth ity o f 30 mg 11:46: daily. [place] capsule Medical Branch tamsulosin 2020-04 Yes Take by [facility] ers 0.4 mg 24 2-09 mouth ity of hr capsule 11:46: daily. [address] Branch pregabalin 2020-04 Yes 150mg Take 150 Un elizabeth (LYRICA) 2-09 mg by ity of 150 mg 11:46: mouth 2 [place] capsule 22 (two) Medical times Branch daily. metoprolol 2020-04 Yes Take by [facility] ers succinate 2-09 mouth. ity of 100 mg CSpX 11:46: [address] Branch clopidogreL 2020-04 Yes 75mg Take 75 mg Univers (PLAVIX) 75 209 by mouth ity of mg tablet 11:46: daily. [address] Branch Pantoprazol 2020-04 Yes 40mg Take 40 mg Univers e 2-09 by mouth ity of (PROTONIX) 11:46: daily. [place] [address] [place] [address] delayed-rel Branch ease suspension fluticasone 2020-04 Yes Inhale. [facility] vers -umeclidin- 2-09 ity of vilanter 11:46: [place] (TRELEGY 22 [facility] ELLIPTA) Branch 100-62.5-25 mcg DsDv Vitamin E 2020-04 Yes Take by [facility] rs 100 2-09 mouth. ity of unit/0.25 11:46: [place] mL Drop [address] [place] [address] Branch albuterol 2020-04 Yes 1{ampul Use 1 [facility] ers 1.25 mg/3 2-09 e} Ampule as ity o f mL 11:46: directed [place] nebulizer 22 every 6 Medical solution (six) Branch hours as needed for Wheezing. arformotero 2020-04 Yes 15ug Use 15 mcg Univers L (BROVANA) 2-09 as ity of 15 mcg/2 mL 11:46: directed 2 [place] nebulizer 22 (two) Medical solution times Branch daily. NaCl 0.9% 2020-04 Yes PRN, Univers (NS) 18 Starting ity of injection 14:52: on Elisa [place] 00 02/23/21 Medical at 0852, Branch Until Discontinu ed, Routine, Intra-op NaCl 0.9% 2020-04- No PRN, Univers (NS) -18 18 Starting ity of injection 14:52: 17:45 on Elisa [place] 00 :34 02/23/21 Medical at 0852, Branch Until Elisa 02/23/21 at 1145, Routine, Intra-op water for 2020-04 Yes PRN, Univers irrigation 18 Starting ity o f irrigation 14:44: on [facility] solution 02/23/21 Medical at 0844, Branch Until Discontinu ed, Routine, Intra-op water for 2020-04- No PRN, Univers irrigation -18 02-23 Starting ity of irrigation 14:44: 17:45 [facility] :34 02/23/21 Medical at 0844, Branch Until Elisa 02/23/21 at 1145, Routine, Intra-op tetracaine 2020-04 Yes PRN, Univers (PONTOCAINE 04-25 Starting ity of ) 0.5 % 14:42: on [facility] ophthalmic 00 02/23/21 Medic al drops at 0842, Branch Until Discontinu ed, Routine, Intra-op tetracaine 2020-04- No PRN, Univer s (PONTOCAINE 04-25 Starting ity of ) 0.5 % 14:42: 17:45 on [facility] ophthalmic 00 :34 02/23/21 Medic al drops at 0842, Branch Until [facility] 02/23/21 at 1145, Routine, Intra-op neomycin-po 2020-04 Yes PRN, Univer s lymyxin-dex 04-25 Starting ity of amethasone 14:26: on [facility] (MAXITROL) 02/23/21 Medic al 3.5 at 0826, Branch mg/g-10,000 Until unit/g-0.1 Discontinu % ed, ophthalmic Routine, ointment Intra-op gentamicin 2020-04 Yes PRN, Univers injection 04-25 Starting ity of 14:26: on [facility] 02/23/21 Medical at 0826, Branch Until Discontinu ed, GRANT, Intra-op eye block 2020-04 Yes PRN, Univers syringe 11 04-25 Starting ity o f mL 14:26: on [facility] 02/23/21 Medical at 0826, Branch Until Discontinu ed, Intra-op neomycin-po 2020-04- No PRN, Unive rs lymyxin-dex -02-23 Starting ity of amethasone 14:26: 17:45 [facility] :34 02/23/21 Medic al [...] .5mL 0.5 mL, Univ ers 1%-tropic 04-25 1118 Right Eye, ity of 1%-phenyl 13:15: 13:10 [...] as ity o f mL 09:45: directed [place] nebulizer 32 every 6 Medical solution (six) Branch hours as needed for Wheezing. arformotero 2020-04 Yes 15ug Use 15 mcg Univers L (BROVANA) 1-18 as ity of 15 mcg/2 mL 09:45: directed 2 [place] nebulizer 32 (two) Medical solution times Branch daily. allopurinoL 2020-04 Yes 300mg Take 300 U nivers 300 mg 1-18 mg by ity of tablet 09:45: mouth [place] 32 daily. Medical Branch dutasteride 2020-04 Yes .5mg Take 0.5 Un elizabeth (AVODART) 1-18 mg by ity of 0.5 mg 09:45: mouth [place] capsule daily. Medical Branch aspirin 81 2020-04 Yes 81mg Take 81 mg U nivers mg Cap -18 by mouth ity of 09:45: daily. [address] Branch rosuvastati 2020-04 Yes 20mg Take 20 mg Univers n (CRESTOR) -18 by mouth ity of 20 mg 09:45: at [place] [address] bedtime. Medical Branch DULoxetine 2020-04 Yes 30mg Take 30 mg U nivers (CYMBALTA) -18 by mouth ity o f 30 mg 09:45: daily. [place] capsule [address] [place] [address] Branch tamsulosin 2020-04 Yes Take by [facility] ers 0.4 mg 24 1-18 mouth ity of hr capsule 09:45: daily. [address] Branch pregabalin 2020-04 Yes 150mg Take 150 Un elizabeth (LYRICA) 1-18 mg by ity of 150 mg 09:45: mouth 2 [place] capsule (two) Medical times Branch daily. metoprolol 2020-04 Yes Take by [facility] ers succinate 1-18 mouth. ity of 100 mg CSpX 09:45: [address] Branch clopidogreL 2020-04 Yes 75mg Take 75 mg Univers (PLAVIX) 75 -18 by mouth ity of mg tablet 09:45: daily. [address] Branch Pantoprazol 2020-04 Yes 40mg Take 40 mg Univers e -18 by mouth ity of (PROTONIX) 09:45: daily. [place] [address] [place] [address] delayed-rel Branch ease suspension fluticasone 2020-04 Yes Inhale. [facility] vers -umeclidin- -18 ity of vilanter 09:45: [place] (TRELEGY Medical ELLIPTA) Branch 100-62.5-25 mcg DsDv Vitamin E 2020-04 Yes Take by [facility] rs 100 1-18 mouth. ity of unit/0.25 09:45: [place] mL Drop [address] [place] [address] Branch albuterol 2020-04 Yes 1{ampul Use 1 Univ ers 1.25 mg/3 1-18 e} Ampule as ity o f mL 09:45: directed [place] nebulizer every 6 Medical solution (six) Branch hours as needed for Wheezing. arformotero 2020-04 Yes 15ug Use 15 mcg Univers L (BROVANA) 1-18 as ity of 15 mcg/2 mL 09:45: directed 2 [place] nebulizer (two) Medical solution times Branch daily. allopurinoL 2020-04 Yes 300mg Take 300 U nivers 300 mg 1-18 mg by ity of tablet 09:45: mouth [place] [address] daily. Medical Branch dutasteride 2020-04 Yes .5mg Take 0.5 Un elizabeth (AVODART) 1-18 mg by ity of 0.5 mg 09:45: mouth [place] capsule daily. Medical Branch aspirin 81 2020-04 Yes 81mg Take 81 mg U nivers mg Cap 1-18 by mouth ity of 09:45: daily. [address] Branch rosuvastati 2020-04 Yes 20mg Take 20 mg Univers n (CRESTOR) 1-18 by mouth ity of 20 mg 09:45: at [place] tablet bedtime. Medical Branch DULoxetine 2020-04 Yes 30mg Take 30 mg U nivers (CYMBALTA) 1-18 by mouth ity o f 30 mg 09:45: daily. [address] Branch tamsulosin 2020-04 Yes Take by [facility] ers 0.4 mg 24 1-18 mouth ity of hr capsule 09:45: daily. [address] Branch pregabalin 2020-04 Yes 150mg Take 150 Un elizabeth (LYRICA) 1-18 mg by ity of 150 mg 09:45: mouth 2 [place] capsule (two) Medical times Branch daily. metoprolol 2020-04 Yes Take by [facility] ers succinate 1-18 mouth. ity of 100 mg CSpX 09:45: [address] Branch clopidogreL 2020-04 Yes 75mg Take 75 mg Univers (PLAVIX) 75 -18 by mouth ity of mg tablet 09:45: daily. [address] Branch Pantoprazol 2020-04 Yes 40mg Take 40 mg Univers e -18 by mouth ity of (PROTONIX) 09:45: daily. [place] [address] delayed-rel Branch ease suspension fluticasone 2020-04 Yes Inhale. Uni vers -umeclidin- -18 ity of vilanter 09:45: [place] (TRELEGY Medical ELLIPTA) Branch 100-62.5-25 mcg DsDv Vitamin E 2020-04 Yes [facility] -18 mouth. ity of unit/0.25 09:45: [facility] Drop [address] [place] [address] Branch albuterol 2020-04 Yes 1{ampul Use 1 Univ ers 1.25 mg/3 1-18 e} Ampule as ity o f mL 09:45: directed [place] nebulizer 32 every 6 Medical solution (six) Branch hours as needed for Wheezing. arformotero 2020-04 Yes 15ug Use 15 mcg Univers L (BROVANA) 1-18 as ity of 15 mcg/2 mL 09:45: directed 2 [place] nebulizer 32 (two) Medical solution times [place] daily. allopurinoL 2020-04 Yes 300mg Take 300 U nivers 300 mg 1-18 mg by ity of tablet 09:45: mouth [place] [address] daily. [facility] Branch dutasteride 2020-04 Yes .5mg Take 0.5 Un elizabeth (AVODART) 1-18 mg by ity of 0.5 mg 09:45: mouth [place] [address] daily. [facility] Branch aspirin 81 2020-04 Yes 81mg Take 81 mg U nivers mg Cap 18 by mouth ity of 09:45: daily. [address] rosuvastati 2020-04 Yes 20mg Take 20 mg Univers n (CRESTOR) 18 by mouth ity of 20 mg 09:45: at [place] tablet bedtime. [facility] Branch DULoxetine 2020-04 Yes 30mg Take 30 mg U nivers (CYMBALTA) -18 by mouth ity o f 30 mg 09:45: daily. [place] capsule [address] [place] [address] tamsulosin 2020-04 Yes Take by [facility] ers 0.4 mg 24 -18 mouth ity of hr capsule 09:45: daily. [address] pregabalin 2020-04 Yes 150mg Take 150 Un elizabeth (LYRICA) 1-18 mg by ity of 150 mg 09:45: mouth 2 [place] capsule 32 (two) Medical times Branch daily. metoprolol 2020-04 Yes Take by [facility] ers succinate -18 mouth. ity of 100 mg CSpX 09:45: [address] clopidogreL 2020-04 Yes 75mg Take 75 mg Univers (PLAVIX) 75 18 by mouth ity of mg tablet 09:45: daily. [place] 32 Medical Branch Pantoprazol 2020-04 Yes 40mg Take 40 mg Univers e 18 by mouth ity of (PROTONIX) 09:45: daily. [place] 40 [facility] Medical delayed-rel Branch ease suspension fluticasone 2020-04 Yes Inhale. Uni vers -umeclidin- 18 ity of vilanter 09:45: [place] (TRELEGY 32 Medical ELLIPTA) Branch 100-62.5-25 mcg DsDv Vitamin E 2020-04 Yes Take by Unive rs 100 -18 mouth. ity of unit/0.25 09:45: [place] mL Drop Medical Branch clopidogrel Yes 75mg QD Take [address] (PLAVIX) 75 6-08 by mouth Luke s mg tablet 10:57: daily. Medica l 05 [place] aspirin 325 Yes 325mg QD Take [address] MG tablet 6-08 mg by [facility] 10:57: mouth Medical 05 daily. [place] pantoprazol Yes 40mg QD Take [address] e 6-08 by mouth [facility]ukes (PROTONIX) 10:57: daily. Medic al 40 MG 05 [place] tablet pitavastati Yes 4mg QD Take [address] n (LIVALO) 6-08 by mouth [facility]ukes 4 mg Tab 10:57: daily. Medical [address] [place] [address] tamsulosin Yes .4mg QD Take 0.[address] (FLOMAX) 6-08 mg by Lukes 0.4 mg Cp24 10:57: mouth Medic al 24 hr 05 daily. [place] capsule fenofibric Yes 135mg QD Take [address] acid, 6-08 mg by Lukes choline, 10:57: mouth Medical 135 mg 05 daily. [place] capsule dutasteride 0 Yes .5mg QD Take 0.[address] (AVODART) 6-08 mg by [facility]ukes 0.5 mg 10:57: mouth Medical capsule 05 daily. [place] allopurinol 0 Yes 300mg QD Take [address] (ZYLOPRIM) 6-08 mg by [facility]ukes 300 MG 10:57: mouth Medical tablet 05 daily. [place] gabapentin 2015-0 Yes 300mg Q.5D Take [address] (NEURONTIN) 6-08 mg by [facility]ukes 300 MG 10:57: mouth 2 Medical capsule 05 (two) Center times daily. albuterol-i 2015-0 Yes 2{puff} Inhale [address] pratropium 6-08 puffs by Lukes (COMBIVENT) 10:57: mouth via M edical 05 inhaler Center mcg/actuati every 6 on inhaler (six) hours as needed for Wheezing. metoprolol 2016-0 Yes 25mg QD Take [address] (LOPRESSOR) 6-08 by mouth Luke s 25 MG 10:57: daily . Medical tablet 05 [place] fentaNYL 0 Yes 2{patch Place [address] (DURAGESIC) 6-08 } patches Lukes 12 mcg/hr 10:57: onto the Medi ricki patch 05 skin every Center third day. clopidogrel 2015-0 Yes 75mg QD Take [address] (PLAVIX) 75 6-08 by mouth Luke s mg tablet 10:57: daily. Medica l 05 [place] aspirin 325 2016-0 Yes 325mg QD Take [address] MG tablet 6-08 mg by [facility]ukes 10:57: mouth Medical 05 daily. [place] pantoprazol 0 Yes 40mg QD Take [address] e 6-08 by mouth [facility]ukes (PROTONIX) 10:57: daily. Medic al 40 MG 05 [place] tablet pitavastati 0 Yes 4mg QD Take [address] n (LIVALO) 6-08 by mouth Lukes 4 mg Tab 10:57: daily. Medical 05 [place] tamsulosin 2015-0 Yes .4mg QD Take 0.[address] (FLOMAX) 6-08 mg by Lukes 0.4 mg Cp24 10:57: mouth Medic al 24 hr 05 daily. [place] capsule fenofibric 2016-0 Yes 135mg QD Take [address] acid, 6-08 mg by Lukes choline, 10:57: mouth Medical 135 mg 05 daily. [place] capsule dutasteride 2016-0 Yes .5mg QD Take 0.[address] (AVODART) 6-08 mg by [facility]ukes 0.5 mg 10:57: mouth Medical capsule 05 daily. [place] allopurinol 2015-0 Yes 300mg QD Take [address] (ZYLOPRIM) 6-08 mg by Lukes 300 MG 10:57: mouth Medical tablet 05 daily. [place] gabapentin 2016-0 Yes 300mg Q.5D Take [address] (NEURONTIN) 6-08 mg by [facility]ukes 300 MG 10:57: mouth 2 Medical capsule 05 (two) Center times daily. albuterol-i Yes 2{puff} Inhale [address] pratropium 6-08 puffs by [facility]ukes (COMBIVENT) 10:57: mouth via M edical 18 05 inhaler Center mcg/actuati every 6 on inhaler (six) hours as needed for Wheezing. metoprolol Yes 25mg QD Take [address] (LOPRESSOR) 6-08 by mouth Luke s 25 MG 10:57: daily . Medical tablet 05 Center fentaNYL Yes 2{patch Place [address] (DURAGESIC) 6-08 } patches Lukes 12 mcg/hr 10:57: onto the [facility] patch 05 skin every Center third day. Immunizations Ordered Filled Immunization Date Status Comments [facility] Immunization Name Name SARS-COV-2 COVID-19 2020-12-13 Completed Unive rsity of PFIZER VACCINE 00:00:00 [facility] SARS-COV-2 COVID-19 2020-12-13 Completed Unive rsity of PFIZER VACCINE 00:00:00 [facility] SARS-COV-2 COVID-19 2020-11-21 Completed Unive rsity of PFIZER VACCINE 00:00:00 [facility] SARS-COV-2 COVID-19 2020-11-21 Completed Unive rsity of PFIZER VACCINE 00:00:00 [facility] Vital Signs Vital Name Observation Time Observation Value Comments Source Heart rate 2021-03-16 17:31:00 56 /[facility] Respiratory rate 2021-03-16 17:31:00 16 /min [facility] Oxygen saturation in 2021-03-16 17:31:00 94 /min [facility] Arterial blood by [facility] Pulse oximetry Branch Systolic blood 2021-03-16 17:27:00 187 mm[Hg] Univer sity of pressure [facility] Diastolic blood 2021-03-16 17:27:00 84 mm[Hg] Unive rsity of pressure [facility] Body temperature 2021-03-16 17:13:00 36.44 [facility] Body height 2021-03-09 20:58:00 167.6 cm [facility] [place] [facility] Body weight 2021-03-09 20:58:00 89.8 kg [facility] BMI 2021-03-09 20:58:00 31.95 kg/m2 [facility] Systolic blood 2021-03-16 14:41:00 179 mm[Hg] [facility] Diastolic blood 2021-03-16 14:41:00 81 mm[Hg] [facility] Heart rate 2021-03-16 14:41:00 59 /min [facility] Body temperature 2021-03-16 14:41:00 36.39 Caridad [facility] Respiratory rate 2021-03-16 14:41:00 19 /min [facility] Oxygen saturation in 2021-03-16 14:41:00 94 /min [facility] Arterial blood by [place] [employer] ricki Pulse oximetry Branch Body height 2021-03-09 20:58:00 167.6 cm [facility] Body weight 2021-03-09 20:58:00 89.8 kg [facility] BMI 2021-03-09 20:58:00 31.95 kg/m2 [facility] Heart rate 2021-02-23 15:32:00 59 /min [facility] Oxygen saturation in 2021-02-23 15:32:00 95 /min [facility] Arterial blood by [place] [employer] ricki Pulse oximetry [facility] Systolic blood 2021-02-23 15:29:00 176 mm[Hg] [facility] Diastolic blood 2021-02-23 15:29:00 85 mm[Hg] [facility] Respiratory rate 2021-02-23 15:29:00 20 /min [facility] Body temperature 2021-02-23 15:16:00 36.22 Caridad [facility] Body height 2021-02-20 19:08:00 167.6 cm [facility] Body weight 2021-02-20 19:08:00 89.8 kg [facility] BMI 2021-02-20 19:08:00 31.97 kg/m2 Univers[facility] Systolic blood 2021-02-23 13:11:00 160 mm[Hg] Univer sity of pressure [facility] Diastolic blood 2021-02-23 13:11:00 70 mm[Hg] Unive rsity of pressure [facility] Heart rate 2021-02-23 13:11:00 63 /min [facility] Body temperature 2021-02-23 13:11:00 37.06 Caridad [facility] Respiratory rate 2021-02-23 13:11:00 19 /min [facility] Oxygen saturation in 2021-02-23 13:11:00 97 /min [facility] Arterial blood by [facility] Pulse oximetry [place] Body height 2021-02-20 19:08:00 167.6 cm [facility] Body weight 2021-02-20 19:08:00 89.8 kg [facility] BMI 2021-02-20 19:08:00 31.97 kg/m2 [facility] Procedures Procedure Date / Time Performing Source Performed Clinician HEPATITIS B SURFACE ANTIBODY 2021-11-[address] [facility] 02:26:00 [facility] HEPATITIS B CORE ANTIBODY, 2021-11-09 [facility] 02:26:00 [facility] HEPATITIS B SURFACE ANTIGEN 2021-11-[address] [facility] 02:26:00 [facility] HEPATITIS C ANTIBODY 2021-11-[address] [facility] 02:26:00 [facility] PHACOEMULSIFICATION OF 2021-03-16 [facility] CATARACT WITH INTRAOCULAR 16:18:00 Mir Triplett LENS IMPLANT ASSIGNMENT OF BENEFITS 2021-03-13 Doctor Unassigned, [facility] 15:20:07 [place] [facility] PHACOEMULSIFICATION OF 2021-02-23 [facility] CATARACT WITH INTRAOCULAR 14:30:00 Mir Triplett LENS IMPLANT CBC WITH DIFF 2021-02-20 Johnathon [facility] xas 14:56:00 [facility] COVID-19 (ID NOW RAPID 2021-02-20 [facility] TESTING) 14:50:00 [facility] Encounters Start End Encounter Admission Attending Care Care Encounter Source Date/Time Date/Time Type Type Clinicians Facility Department ID 2022-04-30 2022-04-30 Outpatient R MELITA [facility] [id number] Univers 00:00:00 00:00:00 JORGE L rubiny o f [facility] 2021-11-09 2021-11-09 Lab [facility] [id number] 00:00:00 00:00:00 Requisitio Brent es n [facility] 2021-11-09 2021-11-09 Lab [facility] [id number] 00:00:00 00:00:00 Requisitio Brent es n [facility] 2021-03-16 2021-03-16 [facility] [id number] Univers 08:29:00 11:46:00 TRES ity of [facility] 2021-03-16 2021-03-16 [facility] [id number] Univers 08:29:00 11:46:00 Encounter Tres DUEÑAS [id number] it[place] [id number] [facility] 071 Branch 2021-03-16 2021-03-16 Surgery [facility] [id number] Univers 09:54:00 10:30:00 Tres DUEÑAS [id number] i [place] [id number] [facility] 020 Branch 2021-03-13 2021-03-13 Orders Doctor MIKE [id number] Univers 00:00:00 00:00:00 Only Unassigned, SON 350.1.13.10 ity of [place] [facility] 4.2.7.2.686 Jeremi as [id number] [facility] 009 Branch 2021-02-23 2021-02-23 [facility] [id number] Univers 07:00:00 09:45:00 Encounter Tres DUEÑAS [id number] [place] [id number] [facility] [address] [place] 2021-02-23 2021-02-23 Outpatient [facility] OPH [id number] Univers 07:00:00 09:45:00 TRES sandro [facility] 2021-02-23 2021-02-23 Surgery [facility] [id number] Univers 08:37:00 09:11:00 Trse DUEÑAS [id number] i ty [place] [id number] [facility] [address] [place] 2021-02-20 2021-02-20 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 Results Test Description Test Time Test Comments Results Result Comments Source Hepatitis B surface antibody 2021-11-09 11:07:39 Test Item Value Reference Range Interpretation Comme nts Hep B S Ab (test code = <8.0 See_Comment [Au tomated message] The 67997-9) system which ge nerated this result transmit connie reference range : <8.0 mIU/mL. The ref erence range was not used to interpret this result as normal/abnormal . BERT (test code = BERT) Helpdesk Specialist ID - LESLIE Ornelas Lab Interpretation (test Normal code = 64260-7) [facility] [id number] 11:07:39 Test Item Value Reference Range Interpretation Comments Hep B S Ab (test code <8.0 See_Comment [Auto mated = 94280-1) message] The system which generated this result transmit connie reference range : <8.0 mIU/mL. Th e reference range was not used to interpret this result as normal/abnormal . BERT (test code = BERT) Helpdesk Specialist ID - LESLIE M Lab Interpretation Normal (test code = 36076-4) [facility] [id number] 11:07:39 Test Item Value Reference Range Interpretation Comments HEPATITIS B SURFACE ANTIBODY < mIU/mL <8.0 (BEAKER) (test code = 647) Helpdesk Specialist ID - LESLIE MHepatitis C [id number] 11:00:00 Test Item Value Reference Range Interpretation Comments Hepatitis C Ab (test Nonreactive Nonreactive code = 67662-4) BERT (test code = BERT) Helpdesk Specialist ID - LESLIE M Lab Interpretation (test Normal code = 15961-5) [facility] [id number] 11:00:00 Test Item Value Reference Range Interpretation Comments Hepatitis C Ab (test Nonreactive Nonreactive code = 91389-8) BERT (test code = BERT) Helpdesk Specialist ID - LESLIE M Lab Interpretation (test Normal code = 97805-2) [facility] [id number] 11:00:00 Test Item Value Reference Range Interpretation Comments HEPATITIS C ANTIBODY (BEAKER) Nonreactive Nonreactive (test code = 367) Helpdesk Specialist ID - LESLIE MHepatitis B core antibody, [id number] 10:59:55 Test Item Value Reference Range Interpretation Comments Hep B C IgM (test code = Nonreactive Nonreactive 10340-6) BERT (test code = BERT) Helpdesk Specialist ID - LESLIE M Lab Interpretation (test Normal code = 77532-1) [facility] antibody, [id number] 10:59:55 Test Item Value Reference Range Interpretation Comments Hep B C IgM (test code = Nonreactive Nonreactive 43278-9) BERT (test code = BERT) Helpdesk Specialist ID - LESLIE M Lab Interpretation (test Normal code = 44890-0) [facility]TIBODY, [id number] 10:59:55 Test Item Value Reference Range Interpretation Comments HEPATITIS B CORE IGM ANTIBODY Nonreactive Nonreactive (BEAKER) (test code = 645) Helpdesk Specialist ID - LESLIE MHepatitis B surface [id number] 10:59:54 Test Item Value Reference Range Interpretation Comments Hepatitis B surface Nonreactive Nonreactive antigen (test code = 5195-3) BERT (test code = BERT) Specimen is considered negative for HBsAg. Lab Interpretation (test Normal code = 39940-5) [facility] B surface [id number] 10:59:54 Test Item Value Reference Range Interpretation Comments Hepatitis B surface Nonreactive Nonreactive antigen (test code = 5195-3) BERT (test code = BERT) Specimen is considered negative for HBsAg. Lab Interpretation (test Normal code = 73557-3) [facility] B SURFACE [id number] 10:59:54 Test Item Value Reference Range Interpretation Comments HEPATITIS B SURFACE ANTIGEN (2) Nonreactive Nonreactive (BEAKER) (test code = 2585) Specimen is considered negative for HBsAg.CBC WITH [id number] 15:01:08 Test Item Value Reference Range Interpretation [...] (test code = 56.7 fL 38.5-51.6 H 09951-9) RDW-CV (test code = 15.7 % 12.1-15.4 H 788-0) PLT (test code = See_Comment [Automated 777-3) message] The sy stem which generated this result transmitted reference range : 150 - 328 10*3/ ?L. The reference r joaquin was not used to interpret this result as normal/abnormal . MPV (test code = 10.8 fL 9.8-13.0 15588-8) NRBC/100 WBC (test See_Comment [Automat ed code = [id number]) message] The system which generated this result transmitted reference range : 0.0 - 10.0 /100 WBCs. The refer ence range was not u sed to interpret th is result as normal/abnormal . NRBC x10^3 (test code <0.01 See_Comment [Auto mated = [id number]) message] The s ystem which generated this result transmitted reference range : 10*3/?L. The reference range was not used to interpret this result as normal/abnormal . GRAN MAT (NEUT) % 76.8 % (test code = 770-8) IMM GRAN % (test code 0.80 % = 3400499508) LYMPH % (test code = 16.0 % 736-9) MONO % (test code = 5.8 % 5905-5) EOS % (test code = 0.0 % 713-8) BASO % (test code = 0.6 % 706-2) GRAN MAT x10^3(ANC) 5.54 10*3/uL 1.99-6.95 (test code = 2010975085) IMM GRAN x10^3 (test 0.06 10*3/uL 0.00-0.06 code = 7161885759) LYMPH x10^3 (test code 1.15 10*3/uL 1.09-3.23 = 731-0) MONO x10^3 (test code 0.42 10*3/uL 0.36-1.02 = 742-7) EOS x10^3 (test code = <0.03 0.06-0.53 L 711-2) BASO x10^3 (test code 0.04 10*3/uL 0.01-0.09 = 704-7) Lab Interpretation Abnormal (test code = 93715-4) [facility] [id number] 12:20:00Addendum BeginsREPORT STATUS:A Addendum: I have reviewed the nonvascular features of this examination concur with Dr. Stewart's report. There is been interval growth in the size of the largest cyst in the left kidney from 5.7 to 8.1 cm. The other renal lesions are unchanged in sizeand configuration. Signed: Mehdi Boone MDReport Verified Date/Time: 10/22/2018 12:20:45 Reading Location: [place] [address] Angio Body Reading RoomAddendum EndsFINAL REPORT CT [...] and the right. Prior addendum by the Marketing Budget Analyst Radiologist, the calcification could be related to [...] dictated regarding the non-vascular findings by the Marketing Budget Analyst Radiologists. Signed: Fausto Stewart Verified Date/Time: 10/22/2018 10:10:53 Reading Location: [place] [address] Cardiology MRI
[2022-04-30] MEDS ORDERED: ALBUTEROL 2.5 MG/3 ML NEB SOL ONE (18:42)
[2022-04-30] MEDS ORDERED: IPRATROPIUM BROM 0.5MG/2.5ML ONE (18:42)
[2022-04-30 18:47] LABS: Absolute Lymphocytes (CBC) 1.1 K/uL (0.7-4.9); Hematocrit 28.3 % (39.6-49.0); Lymphocytes % 17.6 % (15.3-44.8); MCV 95.3 fL (80-100); MPV 8.5 fL (7.6-11.3); RBC Red Blood Cell Count 2.96 M/uL (4.33-5.43)
[2022-04-30 18:48] LABS: Protime INR 0.97
--- NOTE | 2022-04-30 18:58 | RAD REPORT ---
EXAM DESCRIPTION: RAD - Chest Single View - 04/30/2022 6:42 pm CLINICAL HISTORY: SOB COMPARISON: Portable 11/06/2021 TECHNIQUE: AP portable chest image was obtained 04/30/2022 6:42 pm . FINDINGS: Prominent interstitial lung pattern is present similar to prior imaging. Severity of chron ic pattern could mask underlying interstitial edema or infiltrate. No one focal area of dense consoli dation identifiable. Retrocardiac left base assessment is more limited. Upper lobe vasculature is mil dly prominent. Heart size is enlarged but not grossly different from comparison. Trachea is in the mi dline. No measurable pleural effusion and no pneumothorax. No acute bony abnormality seen. No acute aortic findings suspected. IMPRESSION: Heart, vasculature and lung markings are all prominent. Pattern is not substantially dif ferent from comparison. Interstitial edema or infiltrate could be masked by the chronic findings.
[2022-04-30 19:07] LABS: Potassium 4.2 mmol/L (3.5-5.1); Troponin High Sensitivity 24.6 pg/mL (<58.9)
[2022-04-30] MEDS ORDERED: HYDRALAZINE HCL 25 MG TABLET ONE (19:41)
[2022-04-30] MEDS ORDERED: HYDRALAZINE HCL 20 MG/ML VIAL ONE (19:41)
--- NOTE | 2022-04-30 20:07 | RAD REPORT ---
EXAM DESCRIPTION: US - Extrem Venous W Compress Zhang - 04/30/2022 7:21 pm CLINICAL HISTORY: PAIN COMPARISON: None. TECHNIQUE: Real-time sonographic evaluation of the bilateral lower extremity common femoral, superfi cial femoral, popliteal and posterior tibial veins was performed. FINDINGS: Normal compressibility, flow augmentation, phasic flow and spontaneous flow are identified in the left and right lower extremity common femoral, superficial femoral, popliteal and posterior t ibial veins. No intraluminal filling defects seen. IMPRESSION: No DVT in either lower extremity.
--- NOTE | 2022-04-30 20:11 | RAD REPORT ---
EXAM DESCRIPTION: US - Lower Extremity Arterial Bilat - 04/30/2022 7:21 pm CLINICAL HISTORY: PAIN COMPARISON: None. TECHNIQUE: Doppler evaluation of the bilateral lower extremity arterial tree performed. Waveforms an d velocity values were obtained along the length of each lower extremity. Visual inspection of the lo wer extremity arterial tree performed. FINDINGS: Triphasic right common femoral artery waveform pattern transitions to biphasic pattern in the superficial femoropopliteal arteries. Biphasic pattern remains in the posterior tibial and calf c ells pedis arteries. Dense arterial atherosclerotic changes seen in the miranda of the right lower extr emity. Monophasic waveform pattern is seen in the entire length of the left lower extremity arterial tree. V elocity values are generally lower in the left leg compared the right. No focal flow restricting lesi on or occlusion identified. IMPRESSION: Significant bilateral lower extremity arterial tree, left greater than right, with no oc clusion or focal flow restricting lesions seen.
--- NOTE | 2022-04-30 21:02 | EDPHYS ---
Physician Documentation [facility] Name: Enrrique Vaughn Age: 76 yrs Sex: Male : 1945 Arrival Date: 04/30/2022 Time: 16:27 Bed 19 Private MD: Julio Stratton V ED Physician David Quintero HPI: 04/30 18:00 This 76 yrs old Male presents to ER via Wheelchair with complaints of High Blood cp Pressure. 18:00 The patient has elevated blood pressure and discovered this at home, with a home device.cp 18:00 Onset: The symptoms/episode began/occurred today. Associated signs and symptoms: cp Pertinent negatives: chest pain, headache, vomiting, weakness, shortness of breath. Severity of symptoms: At its worst the blood pressure was systolic pressure >200, in the emergency department the blood pressure is unchanged, despite home interventions. Patient with known history of HTN and kidney disease. 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 Historical: - Allergies: 16:54 atorvastatin calcium; ss 16:54 Lipitor; ss 16:54 Niacin; ss 16:54 Niaspan; ss 16:54 Paxil; ss 16:54 Tape; ss - PMHx: 16:54 COPD; Gout; Hypertension; Prostate Cancer; ss - Immunization history:: Adult Immunizations up to date. - Social history:: Smoking status: unknown. ROS: 18:05 Constitutional: Negative for fever. cp 18:05 Cardiovascular: Positive for edema, Negative for chest pain, palpitations. cp 18:05 Respiratory: Negative for shortness of breath, wheezing. 18:05 Abdomen/GI: Negative for abdominal pain, nausea, vomiting, and diarrhea. 18:05 Eyes: Negative for injury, pain, redness, and discharge. cp 18:05 ENT: Negative for drainage from ear(s), ear pain, sore throat, difficulty swallowing, difficulty handling secretions. 18:05 Neuro: Negative for altered mental status, dizziness, headache, numbness, syncope, weakness. 18:05 All other systems are negative. Exam: 18:03 ECG was reviewed by the Attending Physician. cp 18:10 Constitutional: The patient appears in no acute distress, alert, awake, comfortable, cp non-diaphoretic, non-toxic, well developed, well nourished. 18:10 Head/Face: Normocephalic, atraumatic. cp 18:10 Eyes: Periorbital structures: appear normal, Pupils: equal, round, and reactive to light and accomodation, Extraocular movements: intact throughout, Conjunctiva: normal, no exudate, no injection, Sclera: no appreciated abnormality, Lids and lashes: appear normal, bilaterally. 18:10 ENT: External ear(s): are unremarkable, Nose: is normal, Mouth: Lips: moist, Oral mucosa: pink and intact, moist, Posterior pharynx: Airway: no evidence of obstruction, patent. 18:10 Neck: ROM/movement: is normal, is supple, without pain, no range of motions limitations. 18:10 Chest/axilla: Inspection: normal, Palpation: is normal, no crepitus, no tenderness. 18:10 Cardiovascular: Rate: normal, Rhythm: regular, Edema: ankle edema, that is mild, JVD: is not appreciated. 18:10 Respiratory: the patient does not display signs of respiratory distress, Respirations: normal, no use of accessory muscles, no retractions, labored breathing, is not present, Breath sounds: bronchial sounds, that are mild, are heard diffusely, stridor, is not appreciated, wheezing: is not appreciated. 18:10 Abdomen/GI: Inspection: abdomen appears normal, Palpation: abdomen is soft and non-tender, in all quadrants. 18:10 Neuro: Orientation: to person, place \T\ time. Mentation: is normal, Cerebellar function: is grossly normal, Motor: moves all fours, strength is normal, Sensation: is normal. Vital Signs: 16:51 BP 202 / 83; Pulse 58; Resp 16; Temp 97.7(TE); Pulse Ox 96% on R/A; Weight 92.99 kg; ss Height 5 ft. 6 in. (167.64 cm); Pain 0/10; 19:05 BP 206 / 63; Pulse 59; Resp 16; Pulse Ox 100% ; jh5 19:48 BP 204 / 75; Pulse 69; Resp 19; Pulse Ox 100% on R/A; kd3 20:52 BP 149 / 56; Pulse 66; Resp 19; Pulse Ox 95% on R/A; kd3 21:23 BP 164 / 63; Pulse 63; Resp 19; Pulse Ox 99% on R/A; kd3 16:51 Body Mass Index 33.09 (92.99 kg, 167.64 cm) ss MDM: 17:12 Patient medically screened. cp 18:00 Differential diagnosis: hypertensive crisis, Malignant HTN, CVA, intracerebral cp hemorrhage. 21:00 Data reviewed: vital signs, nurses notes, lab test result(s), EKG, radiologic studies, cp plain films. 21:00 Consideration of Admission/Observation Escalation of care including cp admission/observation considered. Management of patient was discussed with the following: Primary Care Provider: DR Stratton concerning blood pressure. Discussed giving patient IV and oral hydralazine and increasing hydralazine to 50 mg tid. Test considered but Not performed: Other Details CT chest. Care significantly affected by the following chronic conditions: Hypertension, Chronic Obstructive Pulmonary Disease. Counseling: I had a detailed discussion with the patient and/or guardian regarding: the historical points, exam findings, and any diagnostic results supporting the discharge/admit diagnosis, lab results, radiology results, the need for outpatient follow up, an manager of transportation, to return to the emergency department if symptoms worsen or persist or if there are any questions or concerns that arise at home. Response to treatment: the patient's symptoms have markedly improved after treatment, and as a result, I will discharge patient. 04/30 17:53 Order name: Basic Metabolic Panel; Complete Time: 19:16 cp 04/30 19:16 Interpretation: Normal except: GLUC 142; BUN 65; CRE 3.49; GFR 17. cp 04/30 17:53 Order name: CBC with Diff; Complete Time: 19:04 cp 04/30 19:05 Interpretation: Normal except: RBC 2.96; HGB 9.5; HCT 28.3; RDW 17.0; MARLEN% 76.2. cp 04/30 17:53 Order name: Magnesium; Complete Time: 19:16 cp 04/30 17:53 Order name: NT PRO-BNP; Complete Time: 19:16 cp 04/30 19:16 Interpretation: Abnormal: NT PRO-BNP 7654. cp 04/30 17:53 Order name: PT-INR; Complete Time: 19:04 cp 04/30 17:53 Order name: Troponin HS; Complete Time: 19:16 cp 04/30 17:53 Order name: XRAY Chest (1 view); Complete Time: 19:04 cp 04/30 17:53 Order name: EKG; Complete Time: 17:54 cp 04/30 17:53 Order name: US Extremity Venous W Compression Zhang cp 04/30 17:53 Order name: Lower Extremity Arterial Bilat US cp 04/30 19:36 Order name: US Rp Exam Complete cp 04/30 17:53 Order name: Cardiac monitoring; Complete Time: 18:01 cp 04/30 17:53 Order name: EKG - Nurse/Tech; Complete Time: 18:01 cp 04/30 17:53 Order name: IV Saline Lock; Complete Time: 18:39 cp 04/30 17:53 Order name: Labs collected and sent; Complete Time: 18:39 cp 04/30 17:53 Order name: O2 Per Protocol; Complete Time: 18:01 cp 04/30 17:53 Order name: O2 Sat Monitoring; Complete Time: 18:01 cp EC:03 Rate is 61 beats/min. Rhythm is regular. ND interval is normal. QRS interval is normal. cp QT interval is normal. Interpreted by me. Reviewed by me. Administered Medications: 18:46 Drug: Albuterol - atroVENT (ipratropium) (3:1) (2.5 mg - 0.5 mg) 3 ml Route: Nebulizer; jh5 21:22 Follow up: Response: No adverse reaction; Wheezing diminished kd3 19:48 Drug: hydrALAZINE 10 mg Route: IVP; Site: left antecubital; kd3 21:22 Follow up: Response: Blood pressure is lowered kd3 19:48 Drug: HydrALAZINE 50 mg Route: PO; kd3 21:22 Follow up: Response: Blood pressure is lowered kd3 Disposition: 05/01 07:30 Co-signature as Attending Physician, David Quintero DO I reviewed the patient's care ms3 provided by the Advanced Practice Provider and agree with the diagnosis and treatment plan. 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 stage 4 chronic kidney disease, or unspecified chronic kidney disease Followup: cp - With: Julio Stratton MD - When: 2 - 3 days - Reason: Recheck today's complaints Discharge Instructions: - Discharge Summary Sheet cp - Heart Failure, Diagnosis cp - Hypertension, Adult cp - Food Basics for Chronic Kidney Disease cp Forms: - Medication Reconciliation Form cp - Thank You Letter cp - Antibiotic Education cp - Prescription Opioid Use cp Prescriptions: - hydralazine 50 mg Oral tablet - take 1 tablet by ORAL route 3 times per day with food; 60 tablet; Refills: 0, cp Product Selection Permitted Signatures: Dispatcher [employer] Marifer Chang, RN RN ss Darren Helms PA PA David Redd DO DO ms3 Jovita Davison RN RN jh5 Charisma Malik RN RN kd3
--- NOTE | 2022-04-30 21:02 | ER ---
Nurse's Notes [facility] Name: Enrrique Vaughn Age: 76 yrs Sex: Male : 1945 Arrival Date: 04/30/2022 Time: 16:27 Bed 19 Private MD: Julio Stratton V Diagnosis: Hypertensive heart and chronic kidney disease with heart failure and stage 1 through stage 4 chronic kidney disease, or unspecified chronic kidney disease Presentation: 04/30 16:51 Chief complaint: Spouse and/or significant other states: "He saw a a and p mechanic on ss Saturday for the first time. They changed his blood pressure medication. We got up this morning and it was 166/74. We gave him his hydralazine 50 mg at 1130, and after that it was 195/80. I gave him his metoprolol 25 mg and after that it was 192/90. So I called the a and p mechanic office and the nurses told him he needs to go to the ER.". Coronavirus screen: Client denies travel out of the [place] in the last 14 days. Ebola Screen: Patient denies exposure to infectious person. Patient denies travel to an Ebola-affected area in the 21 days before illness onset. Initial Sepsis Screen: Does the patient meet any 2 criteria? No. Patient's initial sepsis screen is negative. Does the patient have a suspected source of infection? No. Patient's initial sepsis screen is negative. Risk Assessment: Do you want to hurt yourself or someone else? Patient reports no desire to harm self or others. Onset of symptoms was April 30, 2022. 16:51 Method Of Arrival: Wheelchair ss 16:51 Acuity: SAMANTHA 2 ss Triage Assessment: 21:21 General: Appears in no apparent distress. Behavior is calm, cooperative. Pain: Denies kd3 pain. Historical: - Allergies: 16:54 atorvastatin calcium; ss 16:54 Lipitor; ss 16:54 Niacin; ss 16:54 Niaspan; ss 16:54 Paxil; ss 16:54 Tape; ss - PMHx: 16:54 COPD; Gout; Hypertension; Prostate Cancer; ss - Immunization history:: Adult Immunizations up to date. - Social history:: Smoking status: unknown. Screenin:[address] [facility] ED Fall Risk Assessment (Adult) History of falling in the last 3 months, kd3 including since admission No falls in past 3 months (0 pts) Confusion or Disorientation No (0 pts) Intoxicated or Sedated No (0 pts) Impaired Gait No (0 pts) Mobility Assist Device Used No (0 pt) Altered Elimination No (0 pt) Score/Fall Risk Level 0 - 2 = Low Risk Oriented to surroundings. Abuse screen: Denies threats or abuse. Denies injuries from another. Nutritional screening: No deficits noted. Tuberculosis screening: No symptoms or risk factors identified. Vital Signs: 16:51 BP 202 / 83; Pulse 58; Resp 16; Temp 97.7(TE); Pulse Ox 96% on R/A; Weight 92.99 kg; ss Height 5 ft. 6 in. (167.64 cm); Pain 0/10; 19:05 BP 206 / 63; Pulse 59; Resp 16; Pulse Ox 100% ; jh5 19:48 BP 204 / 75; Pulse 69; Resp 19; Pulse Ox 100% on R/A; kd3 20:52 BP 149 / 56; Pulse 66; Resp 19; Pulse Ox 95% on R/A; kd3 21:23 BP 164 / 63; Pulse 63; Resp 19; Pulse Ox 99% on R/A; kd3 16:51 Body Mass Index 33.09 (92.99 kg, 167.64 cm) ED Course: 16:27 Patient arrived in ED. mr 16:28 Julio Stratton MD is Private Physician. mr 16:45 Darren Helms PA is PHCP. cp 16:45 David Quintero DO is Attending Physician. cp 16:54 Triage completed. ss 16:54 Arm band placed on right wrist. ss 18:15 Missed attempt(s): 20 gauge in right forearm. jh5 18:15 Missed attempt(s): 20 gauge antecubital area. jh5 18:39 Inserted saline lock: 20 gauge in left antecubital area, using aseptic technique. Blood rs5 collected. 18:44 XRAY Chest (1 view) In Process Unspecified. EDMS 19:08 Charisma Malik, RN is Primary Nurse. kd3 19:23 US Extremity Venous W Compression Zhang In Process Unspecified. EDMS 19:23 Lower Extremity Arterial Bilat US In Process Unspecified. EDMS 21:00 Julio Stratton MD is Referral Physician. cp 21:01 Rp Exam Complete In Process Unspecified. EDMS 21:21 No provider procedures requiring assistance completed. IV discontinued, intact, kd3 bleeding controlled, No redness/swelling at site. Pressure dressing applied. 21:23 Patient has correct armband on for positive identification. Bed in low position. kd3 Administered Medications: 18:46 Drug: Albuterol - atroVENT (ipratropium) (3:1) (2.5 mg - 0.5 mg) 3 ml Route: Nebulizer; 5 21:22 Follow up: Response: No adverse reaction; Wheezing diminished kd3 19:48 Drug: hydrALAZINE 10 mg Route: IVP; Site: left antecubital; kd3 21:22 Follow up: Response: Blood pressure is lowered kd3 19:48 Drug: HydrALAZINE 50 mg Route: PO; kd3 21:22 Follow up: Response: Blood pressure is lowered kd3 Medication: 21:23 VIS not applicable for this client. kd3 Outcome: 21:01 Discharge ordered by . cp 21:22 Discharged to home ambulatory. kd3 21:22 Condition: stable 21:22 Discharge instructions given to patient, family, Instructed on discharge instructions, follow up and referral plans. medication usage, Demonstrated understanding of instructions, follow-up care, medications, Prescriptions given X 1. 21:24 Patient left the ED. kd3 Signatures: Dispatcher [employer] [facility] Mary Gan Shelby, RN RN Darren Frost PA PA cp Rees, Jessica RN RN jh5 Charisma Malik RN RN kd3 Sharif Rothman 5
--- NOTE | 2022-04-30 21:44 | RAD REPORT ---
EXAM DESCRIPTION: US - Renal Ultrasound-Complete - 04/30/2022 8:59 pm CLINICAL HISTORY: kidney disease COMPARISON: Renal Ultrasound-Complete dated 03/10/2022 FINDINGS: The right kidney measures grossly 12.1 x 7.3 cm. The left kidney measures grossly 10.3 x 6.0 cm. Increased renal cortical echogenicity is present in both kidneys. Right renal cortex thicknes s within normal range. Left renal cortex also appears to be normal range though assessment is more li mited due to the size and number of large left renal cysts. No hydronephrosis present. Patient has mu ltiple bilateral renal cysts, larger on the left. Cysts measure up to 14 cm in size. No bladder wall thickening or mass. No intraluminal stone or mass. IMPRESSION: No hydronephrosis of either kidney. Multiple large renal cysts are present up to 14 cm in size. Bilateral medical renal disease evident.
[2022-04-30 23:44] VITALS: TEMP 97.7
[2022-04-30 23:55] VITALS: BP 164/63; O2SAT 99
== END 2022-04-30 21:24 | disposition home or self-care (01) ==
LOC: ER 16:24
DX: I13.10 Hypertensive heart and chronic kidney disease without heart failure, with stage 1 through stage 4 chronic kidney disease, or unspecified chronic kidney disease (principal); Z88.8 Allergy status to other drugs, medicaments and biological substances; Z91.048 Other nonmedicinal substance allergy status
CPT/HCPCS: 93005; 85025; 80048; 36415; 83735; 85610; 84484; 83880; 71045; 93925; 93970; 76770; 94640; 96374; 99284; J0360; J7613; J7644

== ENCOUNTER 2022-05-18 14:59 | Inpatient (IN) | payer OTHER ==
--- OUTSIDE RECORDS SUMMARY | 2022-05-18 15:06 | XMS REPORT | Continuity of Care Document ---
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 [place] Heart rate 2021-02-23 15:32:00 59 /min [facility] Oxygen saturation in 2021-02-23 15:32:00 95 /min [facility] Arterial blood by [place] [employer] ricki Pulse oximetry Branch Systolic blood 2021-02-23 15:29:00 176 mm[Hg] Univer sity of pressure [facility] Diastolic blood 2021-02-23 15:29:00 85 mm[Hg] Unive rsity of pressure [facility] Respiratory rate 2021-02-23 15:29:00 20 /min [facility] Body temperature 2021-02-23 15:16:00 36.22 [facility]idad [facility] Body height 2021-02-20 19:08:00 167.6 cm [facility] Body weight 2021-02-20 19:08:00 89[facility]8 [facility] 2021-02-20 19:08:00 31.97 kg/m2 [facility] Systolic blood 2021-02-23 13:11:00 160 mm[Hg] [facility] Diastolic blood 2021-02-23 13:11:00 70 mm[facility]Hg[facility] 2021-02-23 13:11:00 63 /min [facility] Body temperature 2021-02-23 13:11:00 37.06 Caridad [facility] Respiratory rate 2021-02-23 13:11:00 19 /min [facility] Oxygen saturation in 2021-02-23 13:11:00 97 /min [facility] Arterial blood by [facility] Pulse oximetry Branch Body height 2021-02-20 19:08:00 167.6 cm [facility] Body weight 2021-02-20 19:08:00 89.8 kg [facility] BMI 2021-02-20 19:08:00 31.97 kg/m2 [facility] Procedures Procedure Date / Time Performing Source Performed Clinician HEPATITIS B SURFACE ANTIBODY 2021-11-[address] [facility] 02:26:00 [facility] HEPATITIS B CORE ANTIBODY, 2021-11-09 [facility] 02:26:00 [facility] HEPATITIS B SURFACE ANTIGEN 2021-11-[address] [facility] 02:26:00 [facility] HEPATITIS C ANTIBODY 2021-11-[address] [facility] 02:26:00 [facility] PHACOEMULSIFICATION OF 2021-03-16 [facility] CATARACT WITH INTRAOCULAR 16:18:00 [facility] LENS IMPLANT ASSIGNMENT OF BENEFITS 2021-03-13 Doctor Unassigned, [facility] 15:20:07 [place] [facility] PHACOEMULSIFICATION OF 2021-02-23 [facility] CATARACT WITH INTRAOCULAR 14:30:00 [facility] LENS IMPLANT CBC WITH DIFF 2021-02-20 [facility] xas 14:56:00 [facility] COVID-19 (ID NOW RAPID 2021-02-20 Tres Jeronimo [facility] [place] [facility] [place] TESTING) 14:50:00 [facility] Encounters Start End Encounter Admission Attending Care Care Encounter Source Date/Time Date/Time Type Type Clinicians Facility Department ID 2022-04-30 2022-04-30 [facility] [id number] Univers 00:00:00 00:00:00 JORGE L jo o f [facility] 2021-11-09 2021-11-09 Lab [facility] [id number] 00:00:00 00:00:00 [facility] 2021-11-09 2021-11-09 Lab [facility] [id number] [facility]00 [facility] 2021-03-16 2021-03-16 [facility] [id number] Univers 08:29:00 11:46:00 TRES jo of [facility] 2021-03-16 2021-03-16 Hospital [facility] [id number] Univers 08:29:00 11:46:00 Encounter Tres DUEÑAS [id number] [place]y [place] [id number] [facility] 071 Branch 2021-03-16 2021-03-16 Surgery [facility] [id number] Univers 09:54:00 10:30:00 Tres DUEÑAS [id number] i [place] [id number] [facility] 020 Branch 2021-03-13 2021-03-13 Orders Doctor MCKEON [id number] Univers 00:00:00 00:00:00 Only Unassigned, SON 350.1.13.10 ity of [place] [facility] 4.2.7.2.686 Jeremi as [id number] [place] [address] Branch 2021-02-23 2021-02-23 [facility] [id number] Univers 07:00:00 09:45:00 TRES [facility] 2021-02-23 2021-02-23 [facility] [id number] Univers 07:00:00 09:45:00 Encounter Tres LEANA [id number] ity [place] [id number] [facility] 071 [place] 2021-02-23 2021-02-23 [facility] [id number] Univers 08:37:00 09:11:00 Tres DUEÑAS 350.1.13.10 i ty [place] [id number] [facility] 020 [place] 2021-02-20 2021-02-20 Administrative Law Judge Pancho, Adc Lab Main [facility] 1.2.8 40.114 [id number] Univers 08:35:12 08:50:12 Visit Johnathon Tres DUEÑAS 350.1.1 3.10 ity [place] [id number] In dical NAL 353 [facility] 2021-02-20 2021-02-20 Outpatient [facility] [id number] Univers 08:45:00 08:45:00 [facility]ES [facility] Results Test Description Test Time Test Comments Results Result Comments Source Hepatitis B surface antibody 2021-11-09 11:07:39 Test Item Value Reference Range Interpretation Comme nts Hep B S Ab (test code = <8.0 See_Comment [Au tomated message] The 32894-8) system which ge nerated this result transmit connie reference range : <8.0 mIU/mL. The ref erence range was not used to interpret this result as normal/abnormal . BERT (test code = BERT) Record Changer ID - LESLIE Ornelas Lab Interpretation (test Normal code = 83052-5) [facility] [id number] 11:07:39 Test Item Value Reference Range Interpretation Comments Hep B S Ab (test code <8.0 See_Comment [Auto mated = 62037-2) message] The system which generated this result transmit connie reference range : <8.0 mIU/mL. Th e reference range was not used to interpret this result as normal/abnormal . BERT (test code = BERT) Record Changer ID - LESLIE M Lab Interpretation Normal (test code = 03674-7) [facility] B surface [id number] 11:07:39 Test Item Value Reference Range Interpretation Comments Hep B S Ab (test code <8.0 See_Comment [Auto mated = 54246-9) message] The system which generated this result transmit conine reference range : <8.0 mIU/mL. Th e reference range was not used to interpret this result as normal/abnormal . BERT (test code = BERT) Record Changer ID - LESLIE M Lab Interpretation Normal (test code = 19164-1) [facility] [id number] 11:07:39 Test Item Value Reference Range Interpretation Comments HEPATITIS B SURFACE ANTIBODY < mIU/mL <8.0 (BEAKER) (test code = 647) Record Changer ID - LESLIE MHepatitis C [id number] 11:00:00 Test Item Value Reference Range Interpretation Comments Hepatitis C Ab (test Nonreactive Nonreactive code = 66034-8) BERT (test code = BERT) Record Changer ID - LESLIE M Lab Interpretation (test Normal code = 97399-8) [facility] C [id number] 11:00:00 Test Item Value Reference Range Interpretation Comments Hepatitis C Ab (test Nonreactive Nonreactive code = 09581-9) BERT (test code = BERT) Record Changer ID - LESLIE M Lab Interpretation (test Normal code = 25384-9) [facility] [id number] 11:00:00 Test Item Value Reference Range Interpretation Comments Hepatitis C Ab (test Nonreactive Nonreactive code = 27794-2) BERT (test code = BERT) Record Changer ID - LESLIE M Lab Interpretation (test Normal code = 92874-5) [facility] [id number] 11:00:00 Test Item Value Reference Range Interpretation Comments HEPATITIS C ANTIBODY (BEAKER) Nonreactive Nonreactive (test code = 367) Record Changer ID - LESLIE MHepatitis B core antibody, [id number] 10:59:55 Test Item Value Reference Range Interpretation Comments Hep B C IgM (test code = Nonreactive Nonreactive 90172-2) BERT (test code = BERT) Record Changer ID - LESLIE M Lab Interpretation (test Normal code = 84973-5) [facility] core antibody, [id number] 10:59:55 Test Item Value Reference Range Interpretation Comments Hep B C IgM (test code = Nonreactive Nonreactive 15069-6) BERT (test code = BERT) Record Changer ID - LESLIE M Lab Interpretation (test Normal code = 90487-7) [facility] core antibody, [id number] 10:59:55 Test Item Value Reference Range Interpretation Comments Hep B C IgM (test code = Nonreactive Nonreactive 18782-6) BERT (test code = BERT) Record Changer ID - LESLIE M Lab Interpretation (test Normal code = 87756-9) [facility] CORE ANTIBODY, [id number] 10:59:55 Test Item Value Reference Range Interpretation Comments HEPATITIS B CORE IGM ANTIBODY Nonreactive Nonreactive (BEAKER) (test code = 645) Record Changer ID - LESLIE MHepatitis B surface [id number] 10:59:54 Test Item Value Reference Range Interpretation Comments Hepatitis B surface Nonreactive Nonreactive antigen (test code = 5195-3) BERT (test code = BERT) Specimen is considered negative for HBsAg. Lab Interpretation (test Normal code = 60498-9) [facility] surface [id number] 10:59:54 Test Item Value Reference Range Interpretation Comments Hepatitis B surface Nonreactive Nonreactive antigen (test code = 5195-3) BERT (test code = BERT) Specimen is considered negative for HBsAg. Lab Interpretation (test Normal code = 05587-3) [facility] surface [id number] 10:59:54 Test Item Value Reference Range Interpretation Comments Hepatitis B surface Nonreactive Nonreactive antigen (test code = 5195-3) BERT (test code = BERT) Specimen is considered negative for HBsAg. Lab Interpretation (test Normal code = 60236-2) [facility] SURFACE [id number] 10:59:54 Test Item Value Reference Range Interpretation Comments HEPATITIS B SURFACE ANTIGEN (2) Nonreactive Nonreactive (BEAKER) (test code = 2585) Specimen is considered negative for HBsAg.CBC WITH [id number] 15:01:08 Test Item Value Reference Range Interpretation [...] (test code = 56.7 fL 38.5-51.6 H 30183-2) RDW-CV (test code = 15.7 % 12.1-15.4 H 788-0) PLT (test code = See_Comment [Automated 777-3) message] The sy stem which generated this result transmitted reference range : 150 - 328 10*3/ ?L. The reference r joaquin was not used to interpret this result as normal/abnormal . MPV (test code = 10.8 fL 9.8-13.0 48077-7) NRBC/100 WBC (test See_Comment [Automat ed code = [id number]) message] The system which generated this result transmitted reference range : 0.0 - 10.0 /100 WBCs. The refer ence range was not u sed to interpret th is result as normal/abnormal . NRBC x10^3 (test code <0.01 See_Comment [Auto mated = [id number]) message] The s ystem which generated this result transmitted reference range : 10*3/?L. The reference range was not used to interpret this result as normal/abnormal . GRAN MAT (NEUT) % 76.8 % (test code = 770-8) IMM GRAN % (test code 0.80 % = 2071982293) LYMPH % (test code = 16.0 % 736-9) MONO % (test code = 5.8 % 5905-5) EOS % (test code = 0.0 % 713-8) BASO % (test code = 0.6 % 706-2) GRAN MAT x10^3(ANC) 5.54 10*3/uL 1.99-6.95 (test code = 6337088794) IMM GRAN x10^3 (test 0.06 10*3/uL 0.00-0.06 code = 1486803767) LYMPH x10^3 (test code 1.15 10*3/uL 1.09-3.23 = 731-0) MONO x10^3 (test code 0.42 10*3/uL 0.36-1.02 = 742-7) EOS x10^3 (test code = <0.03 0.06-0.53 L 711-2) BASO x10^3 (test code 0.04 10*3/uL 0.01-0.09 = 704-7) Lab Interpretation Abnormal (test code = 96725-7) [facility] [id number] 12:20:00Addendum BeginsREPORT STATUS:A Addendum: I have reviewed the nonvascular features of this examination concur with Dr. Stewart's report. There is been interval growth in the size ofthe largest cyst in the left kidney from 5.7 to 8.1 cm. The other renal lesions are unchanged in size and configuration. Signed: Pedro Boone MDReport Verified Date/Time: 10/22/2018 12:20:45 Reading Location: [place] [address] Angio Body Reading RoomAddendum EndsFINAL REPORT CT of the abdomen and pelvis, without contrast, Oct 24 INDICATION: This is a 73 year old male with history of abdominal aortic aneurysm status post endovascular exclusion. Patient presents for followup evaluation. TECHNIQUE: Spiral acquisition was performed with mild intravenous contrast administration using a GE multidetector scanner. Multi-planar 3-D volume- rendering reconstruction [...] without contrast administration. Presence or absence of endostentcannot be commented upon. Assessment of the mesenteric, renal, and pelvic arteries are limited. No difference to prior examination, eccentric calcific lesion is seen in the left common femoral artery, at image 363. Quantitative dimensions of the abdominal aorta are as follows: 2.8 cm at the mesentericsegment; 2.7 cm at the renal segment; 3.5 [...] and the right. Prior addendum by the Rate Quoting Operator Radiologist, the calcification could be related [...] abdominal aorta. It appears to be well positioned.Assessment is incomplete without contrast administration. Quantitative dimensions [...] dictated regarding the non-vascular findings by the Rate Quoting Operator Radiologists. Signed: Fausto Stewart MDReport Verified Date/Time: 10/22/2018 10:10:53 Reading Location: [facility] P047 Cardiology MRI
[2022-05-18] MEDS ORDERED: METHYLPREDNISOLONE 125 MG INJ ONE (15:26)
[2022-05-18] MEDS ORDERED: ALBUTEROL 2.5 MG/3 ML NEB SOL ONE (15:26)
[2022-05-18] MEDS ORDERED: IPRATROPIUM BROM 0.5MG/2.5ML ONE (15:26)
--- NOTE | 2022-05-18 15:34 | RAD REPORT ---
EXAM DESCRIPTION: RAD - Chest Single View - 05/18/2022 3:26 pm CLINICAL HISTORY: SOB COMPARISON: Chest Single View dated 04/30/2022; Chest Single View dated 11/06/2021; Chest Single View d ated 06/24/2021; Chest Pa And Lat (2 Views) dated 07/23/2018; CHEST SINGLE VIEW dated 12/03/2013 FINDINGS: Lines: None. Lungs: Diffuse prominence of the pulmonary interstitium. Pleural: Moderate left effusion. Probable small right pleural effusion. Cardiac: Cardiomegaly. Mediastinum: Within normal limits. Bones: No acute fractures. Other: None IMPRESSION: Findings most consistent with interstitial pulmonary edema and small moderate left and s mall right pleural effusions. Pneumonia difficult to exclude radiographically.
[2022-05-18 15:58] LABS: Absolute Lymphocytes (CBC) 0.7 K/uL (0.7-4.9); Hematocrit 25.4 % (39.6-49.0); Lymphocytes % 15.3 % (15.3-44.8); MCV 96.7 fL (80-100); RBC Red Blood Cell Count 2.62 M/uL (4.33-5.43)
[2022-05-18 16:01] LABS: Protime INR 0.98
[2022-05-18] MEDS ORDERED: FUROSEMIDE 20 MG/ 2ML VIAL ONE ×2 (16:13→17:23)
[2022-05-18 16:19] LABS: Magnesium 2.3 mg/dL (1.6-2.4); Troponin High Sensitivity 20.2 pg/mL (<58.9)
[2022-05-18 16:21] LABS: Potassium 5.8 mmol/L (3.5-5.1)
[2022-05-18] MEDS ORDERED: CALCIUM GLUCONATE 1 GM IVPB 1 GM/50 ML BAG IV ONE (17:23)
[2022-05-18 17:26] LABS: Arterial Blood Carboxyhemoglob 2.9 % (0-1.5); Blood Gas Oxyhemoglobin 84.9 % (94-97); Blood O2 Saturation 88.7 % (92-98.5)
--- NOTE | 2022-05-18 17:50 | EDPHYS ---
Physician Documentation [facility] Name: Enrrique Vaughn Age: 76 yrs Sex: Male : 1945 Arrival Date: 05/18/2022 Time: 15:01 Bed 2 Private MD: ED Physician Kartik Ortiz HPI: 05/18 15:15 This 76 yrs old Male presents to ER via Wheelchair with complaints of Breathing cp Difficulty. 15:15 The patient has shortness of breath at rest. cp 15:15 Onset: The symptoms/episode began/occurred 10 day(s) ago. cp 15:15 Duration: The symptoms are continuous, and are steadily getting worse. Associated signs cp and symptoms: Pertinent positives: chest pain, productive cough, Pertinent negatives: diaphoresis, dizziness, fever, vomiting. Historical: - Allergies: 15:05 atorvastatin calcium; aa5 15:05 Lipitor; aa5 15:05 Niacin; aa5 15:05 Niaspan; aa5 15:05 Paxil; aa5 15:05 Tape; aa5 - Home Meds: 15:17 amlodipine 5 mg tab TWICE A DAY [Active]; Lasix 40 mg Oral tab 1 tab 2 times per day aa5 [Active]; hydralazine 100 mg Oral tab 3 times per day [Active]; metoprolol tartrate 25 mg Oral tab 1 tab 2 times per day [Active]; magnesium oxide 400 mg magnesium Oral cap daily [Active]; Flomax 0.4 mg Oral cap 1 cap BID [Active]; pregabalin 150 mg Oral cap 2 times per day [Active]; Fish Oil 360-1,200 mg oral cap twice a day [Active]; Plavix 75 mg Oral tab 1 tab once daily [Active]; Cymbalta 60 mg oral cpDR 1 cap once daily [Active]; allopurinol 300 mg Oral tab 1 tab once daily [Active]; Crestor 20 mg oral tab 1 tab once daily [Active]; Protonix 40 mg Oral TbEC once daily [Active]; Avodart 0.5 mg Oral cap 1 cap once daily [Active]; Brovana 15 mcg/2 mL inhalation nebu 2 mL 2 times per day [Active]; Albuterol Nebulizer [Active]; Trelegy Ellipta 100-62.5-25 mcg inhalation dsdv [Active]; Vitamin D Oral ONCE A WEEK [Active]; - PMHx: 15:05 COPD; Gout; Hypertension; Prostate Cancer; aa5 15:05 Kidney Failure Stage 5; aa5 - Immunization history:: Adult Immunizations up to date. - Social history:: Smoking status: . ROS: 15:20 Constitutional: Negative for fever, poor PO intake. cp 15:20 Eyes: Negative for injury, pain, redness, and discharge. cp 15:20 ENT: Negative for drainage from ear(s), ear pain, sore throat, difficulty swallowing, difficulty handling secretions. 15:20 Cardiovascular: Positive for chest pain, Negative for palpitations. 15:20 Respiratory: Positive for cough, "sounds productive", shortness of breath, at rest. wheezing. 15:20 Abdomen/GI: Negative for abdominal pain, vomiting, diarrhea, constipation. 15:20 Neuro: Negative for altered mental status. 15:20 All other systems are negative. cp Exam: 15:30 Constitutional: The patient appears in no acute distress, alert, awake, cp non-diaphoretic, non-toxic, well developed, well nourished. 15:30 Head/Face: Normocephalic, atraumatic. cp 15:30 Eyes: Periorbital structures: appear normal, Conjunctiva: normal, no exudate, no injection, Sclera: no appreciated abnormality, Lids and lashes: appear normal, bilaterally. 15:30 ENT: External ear(s): are unremarkable, Nose: is normal, Mouth: Lips: dry, Oral mucosa: moist, Posterior pharynx: is normal, airway is patent, no erythema, no exudate. 15:30 Neck: ROM/movement: is normal, is supple, without pain, no range of motions limitations, no meningismus. 15:30 Chest/axilla: Inspection: normal. 15:30 Cardiovascular: Rate: normal, Rhythm: regular, Edema: is not appreciated, JVD: is not appreciated. 15:30 Respiratory: mild respiratory distress is noted, Respirations: labored breathing, that is mild, Breath sounds: decreased breath sounds, that are mild, throughout, stridor, is not appreciated, wheezing: that is mild, is heard diffusely. 15:30 Abdomen/GI: Inspection: obese Bowel sounds: active, all quadrants, Palpation: soft, in all quadrants, mild abdominal tenderness, in all quadrants. 15:30 Skin: cellulitis, is not appreciated, no rash present. 15:30 Neuro: Orientation: to person, place \\T\\ time. Mentation: able to follow commands, slow to respond, Motor: moves all fours, Sensation: no obvious gross deficits. 16:20 ECG was reviewed by the Attending Physician. cp Vital Signs: 15:04 BP 131 / 56; Pulse 62; Resp 28 S; Temp 97.3(TE); Pulse Ox 80% on R/A; aa5 15:10 Pulse Ox 96% on 3 lpm NC; aa5 16:22 BP 126 / 60; Pulse 63; Resp 15; Pulse Ox 97% on 3 lpm NC; hb 17:31 BP 129 / 63; Pulse 59; Resp 18; Pulse Ox 92% on 3 lpm NC; hb 18:11 BP 135 / 65; Pulse 59; Resp 18; Pulse Ox 98% on 50% BiPAP; hb 19:15 BP 150 / 71; Pulse 63; Resp 20; Pulse Ox 96% on BiPAP; vc1 20:00 BP 152 / 66; Pulse 63; Resp 20; Pulse Ox 95% on BiPAP; vc1 20:45 BP 139 / 68; Pulse 59; Resp 20; Pulse Ox 94% on BiPAP; vc1 MDM: 15:08 Patient medically screened. cp 17:35 Data reviewed: vital signs, nurses notes, lab test result(s), EKG, radiologic studies, cp plain films. 17:35 Differential diagnosis: Anemia CHF exacerbation, Chronic Obstructive Pulmonary Disease cp Myocardial Infarction pneumonia, pulmonary edema, Pulmonary Embolism Sepsis Unstable Angina. Consideration of Admission/Observation Patient was admitted/placed on observation. Historians other than the Patient: Spouse/Significant Other: provides HPI. Care significantly affected by the following chronic conditions: Congestive Heart Failure, Chronic Obstructive Pulmonary Disease, Chronic Kidney Disease. 05/18 15:14 Order name: Basic Metabolic Panel; Complete Time: 16:24 cp 05/18 16:24 Interpretation: Normal except: K 5.8; CL 112; GLUC 166; BUN 86; CRE 5.13; GFR 11. cp 05/18 15:14 Order name: CBC with Diff; Complete Time: 16:24 cp 05/18 16:25 Interpretation: Normal except: RBC 2.62; HGB 8.3; HCT 25.4; PLT 146; RDW 16.3; MARLEN% cp 78.8. 05/18 15:14 Order name: Magnesium; Complete Time: 16:24 cp 05/18 15:14 Order name: NT PRO-BNP; Complete Time: 16:24 cp 05/18 16:26 Interpretation: NT PRO-BNP 6220; Reviewed. cp 05/18 15:14 Order name: PT-INR; Complete Time: 16:24 cp 05/18 15:14 Order name: Troponin HS; Complete Time: 16:24 cp 05/18 15:14 Order name: Lactate w/ 2H reflex if indic.; Complete Time: 16:24 cp 05/18 15:14 Order name: Procalcitonin; Complete Time: 17:26 cp 05/18 15:14 Order name: Blood Culture Adult (2) cp 05/18 15:58 Order name: Urine Microscopic Only cp 05/18 16:45 Order name: COVID-19/FLU A+B; Complete Time: 18:11 cp 05/18 17:03 Order name: ABG; Complete Time: 18:11 cp 05/18 19:07 Order name: ABG Arterial Blood Gas EDMS 05/18 19:07 Order name: ABG Arterial Blood Gas EDMS 05/18 15:14 Order name: XRAY Chest (1 view); Complete Time: 15:55 cp 05/18 18:00 Order name: BIPAP iw 05/18 19:07 Order name: ABG Arterial Blood Gas EDMS 05/18 19:07 Order name: ABG Arterial Blood Gas EDMS 05/18 19:07 Order name: Basic Metabolic Panel EDMS 05/18 19:07 Order name: Basic Metabolic Panel EDMS 05/18 19:07 Order name: Basic Metabolic Panel EDMS 05/18 19:07 Order name: Basic Metabolic Panel EDMS 05/18 19:07 Order name: CBC with Automated Diff EDMS 05/18 19:07 Order name: CBC with Automated Diff EDMS 05/18 19:07 Order name: CBC with Automated Diff EDMS 05/18 19:07 Order name: CBC with Automated Diff EDMS 05/18 19:07 Order name: NT PRO-BNP EDMS 05/18 19:07 Order name: NT PRO-BNP EDMS 05/18 19:07 Order name: NT PRO-BNP EDMS 05/18 19:07 Order name: NT PRO-BNP EDMS 05/18 15:14 Order name: EKG; Complete Time: 15:15 cp 05/18 15:14 Order name: Cardiac monitoring; Complete Time: 15:53 cp 05/18 15:14 Order name: EKG - Nurse/Tech; Complete Time: 16:21 cp 05/18 15:14 Order name: IV Saline Lock; Complete Time: 15:53 cp 05/18 15:14 Order name: Labs collected and sent; Complete Time: 15:53 cp 05/18 15:14 Order name: O2 Per Protocol; Complete Time: 15:53 cp 05/18 15:14 Order name: O2 Sat Monitoring; Complete Time: 15:53 cp EC:20 Rate is 61 beats/min. Rhythm is regular. OR interval is prolonged at 244 msec. QRS cp interval is normal. QT interval is prolonged at 470 msec. Interpreted by me. Reviewed by me. Administered Medications: 15:53 Drug: SOLU-Medrol (methylPrednisoLONE) 125 mg Route: IVP; Site: right antecubital; hb 16:21 Follow up: Response: No adverse reaction hb 15:54 Drug: Albuterol - atroVENT (ipratropium) (3:1) (2.5 mg - 0.5 mg) 3 ml Route: Nebulizer; hb 16:21 Follow up: Response: No adverse reaction hb 16:21 Drug: Lasix (furosemide) 20 mg Route: IVP; Site: right antecubital; hb 18:21 Follow up: Response: No adverse reaction hb 17:30 Drug: Calcium Gluconate 1 grams Route: IVPB; Infused Over: 60 mins; Site: right hb antecubital; 18:21 Follow up: Response: No adverse reaction hb 18:30 Follow up: IV Intake: 100ml hb 21:54 Follow up: Response: No adverse reaction aa9 21:54 Follow up: Response: No adverse reaction aa9 17:31 Drug: Lasix (furosemide) 20 mg Route: IVP; Site: right antecubital; hb 18:20 Follow up: Response: No adverse reaction hb 17:31 Drug: Sodium Bicarbonate 1 amp Route: IVP; Site: right antecubital; hb 18:21 Follow up: Response: No adverse reaction hb 18:20 Drug: Insulin Regular Human 10 units {Co-Signature: ll1 (Concepción Nickerson RN).} Route: IVP; hb Site: right antecubital; 18:46 Follow up: Response: No adverse reaction hb 18:20 Drug: D50W 50 ml Route: IVP; Site: right antecubital; hb 18:47 Follow up: Response: No adverse reaction hb 19:16 Drug: NS 0.9% 1000 ml Route: IV; Rate: 30 ml/hr; Site: right antecubital; vc1 20:35 Follow up: Response: No adverse reaction; IV Status: Infusion continued upon admission aa9 21:54 Follow up: IV Status: Infusion continued upon admission aa9 Disposition Summary: 05/18/22 17:50 Hospitalization Ordered Hospitalization Status: Inpatient Admission cp Provider: Julio Stratton cp Location: Telemetry/MedSurg (Inpatient) cp Condition: Stable cp Problem: an acute exacerbation cp Symptoms: have improved cp Bed/Room Type: Standard cp Room Assignment: 214(05/18/22 19:20) dw Diagnosis - Unspecified combined systolic (congestive) and diastolic (congestive) heart failure cp - Hypoxemia cp - Hyperkalemia cp - COPD/ Chronic obstructive pulmonary disease with (acute) exacerbation cp - Unspecified kidney failure cp Forms: - Medication Reconciliation Form cp - SBAR form cp Addendum: 05/25/2022 09:52 Co-signature as Attending Physician, Kartik Ortiz MD I reviewed the patient's care r t provided by the Advanced Practice Provider and agree with the diagnosis and treatment plan. Signatures: Dispatcher [employer] Shelby Falcon RN RN dw Janene Lam RN RN aa5 Darren Helms PA PA cp Sagrario James RN RN Gina Valdovinos RN RN vc1 Kartik Ortiz MD MD rt Barbra Deal RN aa9 Concepción Nickerson RN ll1 Corrections: (The following items were deleted from the chart) 05/18 19:20 17:50 cp dw
--- NOTE | 2022-05-18 17:50 | ER ---
Nurse's Notes [facility] Name: Enrrique Vaughn Age: 76 yrs Sex: Male : 1945 Arrival Date: 05/18/2022 Time: 15:01 Bed 2 Private MD: Diagnosis: Unspecified combined systolic (congestive) and diastolic (congestive) heart failure;Hypoxemia;Hyperkalemia;COPD/ Chronic obstructive pulmonary disease with (acute) exacerbation;Unspecified kidney failure Presentation: 05/18 15:04 Chief complaint: Pt's states "he's been sick for about 10 days and he just aa5 finished the Zithromax this morning". pt c/o SOB and wet cough. 15:04 Coronavirus screen: cough unrelated to allergies. Ebola Screen: Patient denies travel aa5 to an Ebola-affected area in the 21 days before illness onset. Initial Sepsis Screen: Does the patient meet any 2 criteria? RR > 20 per min. Does the patient have a suspected source of infection? Yes: Productive cough/pneumonia. Risk Assessment: Do you want to hurt yourself or someone else? Patient reports no desire to harm self or others. Onset of symptoms was 2022. 15:04 Acuity: SAMANTHA 2 aa5 15:04 Method Of Arrival: Wheelchair aa5 Historical: - Allergies: 15:05 atorvastatin calcium; aa5 15:05 Lipitor; aa5 15:05 Niacin; aa5 15:05 Niaspan; aa5 15:05 Paxil; aa5 15:05 Tape; aa5 - Home Meds: 15:17 amlodipine 5 mg tab TWICE A DAY [Active]; Lasix 40 mg Oral tab 1 tab 2 times per day aa5 [Active]; hydralazine 100 mg Oral tab 3 times per day [Active]; metoprolol tartrate 25 mg Oral tab 1 tab 2 times per day [Active]; magnesium oxide 400 mg magnesium Oral cap daily [Active]; Flomax 0.4 mg Oral cap 1 cap BID [Active]; pregabalin 150 mg Oral cap 2 times per day [Active]; Fish Oil 360-1,200 mg oral cap twice a day [Active]; Plavix 75 mg Oral tab 1 tab once daily [Active]; Cymbalta 60 mg oral cpDR 1 cap once daily [Active]; allopurinol 300 mg Oral tab 1 tab once daily [Active]; Crestor 20 mg oral tab 1 tab once daily [Active]; Protonix 40 mg Oral TbEC once daily [Active]; Avodart 0.5 mg Oral cap 1 cap once daily [Active]; Brovana 15 mcg/2 mL inhalation nebu 2 mL 2 times per day [Active]; Albuterol Nebulizer [Active]; Trelegy Ellipta 100-62.5-25 mcg inhalation dsdv [Active]; Vitamin D Oral ONCE A WEEK [Active]; - PMHx: 15:05 COPD; Gout; Hypertension; Prostate Cancer; aa5 15:05 Kidney Failure Stage 5; aa5 - Immunization history:: Adult Immunizations up to date. - Social history:: Smoking status: . Screenin:23 [facility] ED Fall Risk Assessment (Adult) Score/Fall Risk Level 3 or more points = High hb Risk Oriented to surroundings, Maintained a safe environment, Educated pt \\T\\ family on fall prevention, incl call for assistance when getting out of bed. Abuse screen: Denies threats or abuse. Denies injuries from another. Nutritional screening: No deficits noted. Tuberculosis screening: No symptoms or risk factors identified. Assessment: 15:30 Reassessment: Patient appears in no apparent distress at this time. General: Appears in hb no apparent distress. Behavior is calm, cooperative. Pain: Denies pain. Neuro: Level of Consciousness is obeys commands, lethargic. Cardiovascular: Patient's skin is warm and dry. Rhythm is regular. Respiratory: Respiratory effort is mildly labored Respiratory pattern is regular, symmetrical. GI: No signs and/or symptoms were reported involving the gastrointestinal system. : No signs and/or symptoms were reported regarding the genitourinary system. EENT: No signs and/or symptoms were reported regarding the EENT system. Derm: Skin is pink, warm \\T\\ dry. Musculoskeletal: No signs and/or symptoms reported regarding the musculoskeletal system. 16:22 Reassessment: Patient appears in no apparent distress at this time. No changes from hb previously documented assessment. Patient and/or family updated on plan of care and expected duration. Pain level reassessed. 17:31 Reassessment: Patient appears in no apparent distress at this time. No changes from hb previously documented assessment. Patient and/or family updated on plan of care and expected duration. Pain level reassessed. 17:42 Reassessment: RT at bedside for BiPAP setup. hb 18:21 Reassessment: Pt on BiPAP 16/8, R18, 50% FiO2. Admission ordered, awaiting floor orders hb and room assignment. remains at bedside. 20:40 Reassessment: attempted to call report. aa9 21:27 Reassessment: No changes from previously documented assessment. Patient and/or family vc1 updated on plan of care and expected duration. Pain level reassessed. 21:53 Reassessment: pt taken to assigned room, with tech and RT, accompanied. aa9 Vital Signs: 15:04 BP 131 / 56; Pulse 62; Resp 28 S; Temp 97.3(TE); Pulse Ox 80% on R/A; aa5 15:10 Pulse Ox 96% on 3 lpm NC; aa5 16:22 BP 126 / 60; Pulse 63; Resp 15; Pulse Ox 97% on 3 lpm NC; hb 17:31 BP 129 / 63; Pulse 59; Resp 18; Pulse Ox 92% on 3 lpm NC; hb 18:11 BP 135 / 65; Pulse 59; Resp 18; Pulse Ox 98% on 50% BiPAP; hb 19:15 BP 150 / 71; Pulse 63; Resp 20; Pulse Ox 96% on BiPAP; vc1 20:00 BP 152 / 66; Pulse 63; Resp 20; Pulse Ox 95% on BiPAP; vc1 20:45 BP 139 / 68; Pulse 59; Resp 20; Pulse Ox 94% on BiPAP; vc1 ED Course: 15:01 Patient arrived in ED. rg4 15:04 Arm band placed on Patient placed in an exam room, on a stretcher. aa5 15:07 Darren Helms PA is PHCP. cp 15:07 Kartik Ortiz MD is Attending Physician. cp 15:16 Triage completed. aa5 15:21 Sagrario James, RN is Primary Nurse. hb 15:28 XRAY Chest (1 view) In Process Unspecified. EDMS 15:54 Basic Metabolic Panel Sent. hb 15:54 CBC with Diff Sent. hb 15:54 Magnesium Sent. hb 15:54 NT PRO-BNP Sent. hb 15:54 PT-INR Sent. hb 15:54 Troponin HS Sent. hb 15:54 Lactate w/ 2H reflex if indic. Sent. hb 15:54 Blood Culture Adult (2) Sent. hb 15:54 Procalcitonin Sent. hb 15:54 Inserted saline lock: 20 gauge in right antecubital area, using aseptic technique. hb Blood collected. 16:23 Allergy band placed. hb 17:[address] Everett answering service at [phone]/ they will call Dr. Dacosta and someone eb should call us shortly. 17:[address] Crespo the channeler outsole covering for Dr. Dacosta with Darren Kirby. eb 17:49 Julio Stratton MD is Hospitalizing Provider. cp 19:29 Primary Nurse role handed off by Sagrario James RN wm 20:29 No provider procedures requiring assistance completed. Patient admitted, IV remains in aa9 place. Administered Medications: 15:53 Drug: SOLU-Medrol (methylPrednisoLONE) 125 mg Route: IVP; Site: right antecubital; hb 16:21 Follow up: Response: No adverse reaction hb 15:54 Drug: Albuterol - atroVENT (ipratropium) (3:1) (2.5 mg - 0.5 mg) 3 ml Route: Nebulizer; hb 16:21 Follow up: Response: No adverse reaction hb 16:21 Drug: Lasix (furosemide) 20 mg Route: IVP; Site: right antecubital; hb 18:21 Follow up: Response: No adverse reaction hb 17:30 Drug: Calcium Gluconate 1 grams Route: IVPB; Infused Over: 60 mins; Site: right hb antecubital; 18:21 Follow up: Response: No adverse reaction hb 18:30 Follow up: IV Intake: 100ml hb 21:54 Follow up: Response: No adverse reaction aa9 21:54 Follow up: Response: No adverse reaction aa9 17:31 Drug: Lasix (furosemide) 20 mg Route: IVP; Site: right antecubital; hb 18:20 Follow up: Response: No adverse reaction hb 17:31 Drug: Sodium Bicarbonate 1 amp Route: IVP; Site: right antecubital; hb 18:21 Follow up: Response: No adverse reaction hb 18:20 Drug: Insulin Regular Human 10 units {Co-Signature: ll1 (Concepción Nickerson RN).} Route: IVP; hb Site: right antecubital; 18:46 Follow up: Response: No adverse reaction hb 18:20 Drug: D50W 50 ml Route: IVP; Site: right antecubital; hb 18:47 Follow up: Response: No adverse reaction hb 19:16 Drug: NS 0.9% 1000 ml Route: IV; Rate: 30 ml/hr; Site: right antecubital; vc1 20:35 Follow up: Response: No adverse reaction; IV Status: Infusion continued upon admission aa9 21:54 Follow up: IV Status: Infusion continued upon admission aa9 Medication: 16:23 VIS not applicable for this client. hb Intake: 18:30 IV: 100ml; Total: 100ml. hb Outcome: 17:50 Decision to Hospitalize by Provider. cp 21:04 Admitted to Med/surg accompanied by tech, room 214, with chart, Report called to aaRaul Gonzalez 21:04 Condition: stable 21:04 Instructed on the need for admit. 21:53 Patient left the ED. aa9 Signatures: Dispatcher [employer] EDMS Janene Lam RN RN aa5 Darren Helms PA PA Sagrario Vazquez RN RN hb Garcia, Rubi rg4 Shantell Judge Wendy wm Calcote, Vanessa, RN RN vc1 Barbra Deal RN RN aa9 Concepción Nickerson RN ll1 Corrections: (The following items were deleted from the chart) 18:22 18:11 BP 135 / 65; Pulse 59bpm; Resp 18bpm; Pulse Ox 98%; hb hb
[2022-05-18 18:01] LABS: SARS-COV-2 RT PCR NEGATIVE (NEGATIVE)
[2022-05-18] MEDS ORDERED: INSULIN -REGULAR HUMAN 50 UNIT/0.5 ML ML ONE (18:18)
[2022-05-18] MEDS ORDERED: D50W 25 GM/50 ML SYRINGE IV ONE (18:19)
[2022-05-18] MEDS ORDERED: ONDANSETRON 4 MG/2 ML VIAL IV PRN (18:57)
[2022-05-18] MEDS ORDERED: GLUCAGON 1 MG/VIAL IM PRN (19:04)
[2022-05-18] MEDS ORDERED: D50W 25 GM/50 ML SYRINGE IV PRN (19:04)
[2022-05-18] MEDS ORDERED: D10W 125 ML IV PRN (19:32)
[2022-05-18] MEDS ORDERED: NA CHLORIDE 0.9% 1,000 ML IV SCH (20:00)
[2022-05-18] MEDS: INSULIN -REGULAR HUMAN 50 UNIT/0.5 ML ML SQ SCH (21:00)
[2022-05-18] MEDS: ALBUTEROL 2.5 MG/3 ML NEB SOL NEB SCH (22:45)
[2022-05-18] MEDS: IPRATROPIUM BROM 0.5MG/2.5ML NEB SCH (22:45)
[2022-05-19] MEDS: IPRATROPIUM BROM 0.5MG/2.5ML NEB SCH ×4 (03:10→21:00)
[2022-05-19] MEDS: ALBUTEROL 2.5 MG/3 ML NEB SOL NEB SCH ×4 (03:10→21:00)
[2022-05-19] MEDS: METHYLPREDNISOLONE 40 MG INJ IV SCH ×2 (03:34→06:00)
[2022-05-19 04:34] LABS: Absolute Lymphocytes (CBC) 0.3 K/uL (0.7-4.9); Hematocrit 24.7 % (39.6-49.0); Lymphocytes % 10.6 % (15.3-44.8); MCV 95.9 fL (80-100); MPV 9.6 fL (7.6-11.3); RBC Red Blood Cell Count 2.57 M/uL (4.33-5.43)
[2022-05-19 05:06] LABS: Potassium 6.5 mmol/L (3.5-5.1)
[2022-05-19 05:19] LABS: White Blood Cell Scan OK (OK)
[2022-05-19 05:20] LABS: Blood Morphology Comment NOT SEEN (NOT SEEN); Platelet Estimate ADEQ
[2022-05-19 06:08] LABS: Arterial Blood Carboxyhemoglob 1.5 % (0-1.5); Blood Gas Oxyhemoglobin 92.6 % (94-97); Blood O2 Saturation 95.4 % (92-98.5)
[2022-05-19] MEDS: INSULIN -REGULAR HUMAN 50 UNIT/0.5 ML ML SQ SCH ×4 (07:30→20:53)
[2022-05-19] MEDS ORDERED: SOD POLYSTYREN SUL 15 GM/60 ML UCUP PO STA (07:49)
--- NOTE | 2022-05-19 08:29 | P.HP ---
Certification for Inpatient Patient admitted to: Inpatient With expected LOS: >2 Midnights Practitioner: I am a practitioner with admitting privileges, knowledge of patient current condition, hospital course, and medical plan of care. Services: Services provided to patient in accordance with Admission requirements found in Title 42 Section 412.3 of the Code of Federal Regulations Patient History Date of Service: 05/18/22 Reason for admission: SHORT OF BREATH History of Present Illness: MR ONEILL IS A SEVERE COPD PATIENT WITH CKD 5 AND SEVERE ATHEROSCELROSIS FROM HEAVY SMOKING WHO CONTINUES TO SMOKE. HE WANTED TO ENJOY HIS LIFE AND NEVER WANTED TO QUIT SMOKING. THIS TIME HE IS IN MODERATE TO SEVERE DISTRESS WITH DYSPNEA. I SAW HIM IN ER ON DAY ONE. HE IS SHORT OF BREATH AT REST. HE DENIES CHEST PAIN. HE WAS GIVEN Z [place] BY DR HUA THIS WEEK. Allergies niacin [From Niaspan Extended-Release] Allergy (Mild, Verified 11/07/21 00:17) Nausea/Vomiting paroxetine HCl [From Paxil] Allergy (Mild, Verified 11/07/21 00:17) Itching/Hives/Rash atorvastatin calcium [From Lipitor] Adverse Reaction (Intermediate, Verified 11/07/21 00:17) Muscle weakness paper tape Adverse Reaction (Uncoded 11/07/21 00:17) Rash Home Medications: Clopidogrel Bisulfate [Plavix*] 75 mg PO NOON 06/30/12 Tamsulosin [Flomax*] 0.4 mg PO BID 06/30/12 allopurinoL [Allopurinol] 300 mg PO NOON 11/30/13 Pantoprazole Sodium [Protonix] 1 tab PO DAILY 12/02/13 Rosuvastatin [Crestor*] 20 mg PO NOON 11/03/17 Albuterol Inhaler [Ventolin Inhaler*] 2 puff IH Q6H PRN 07/23/18 Duloxetine [Cymbalta *] 60 mg PO DAILY 07/23/18 Fluticasone/Umeclidin/Vilanter [Trelegy Ellipta 100-62.5-25] 1 each IH DAILY 07/23/18 Albuterol Neb [Proventil 0.083% Neb Soln] 1 unit IH Q6HP PRN 06/25/21 Arformoterol Tartrate [Brovana] 1 unit IH BID 06/25/21 Dutasteride [Avodart*] 1 tab PO NOON 06/25/21 Pregabalin [Lyrica] 150 mg PO BID 11/07/21 Amlodipine [Norvasc] 5 mg PO BID 05/19/22 Furosemide [Lasix] 40 mg PO BID 05/19/22 Hydralazine HCl 100 mg PO TID 05/19/22 Magnesium Oxide [Magnesium] 400 mg PO DAILY 05/19/22 Metoprolol Succinate [Toprol Xl*] 25 mg PO BID 05/19/22 - Past Medical/Surgical History Has patient received pneumonia vaccine in the past: No Diabetic: No -: HTN -: Gout -: Ley's Cyst -: Prostate CA -: Kidney dx -: Cardiac cath x2 w/stent placement -: R illiac & coronary stents - Social History Smoking Status: Current every day smoker Alcohol use: No CD- Drugs: No Caffeine use: No Place of Residence: Home Review of Systems 10-point ROS is otherwise unremarkable General: Weakness, Malaise Respiratory: Shortness of Breath Physical Examination - Vital Signs Temperature: 98.8 F Blood Pressure: 146/55 Pulse: 62 Respirations: 17 Pulse Ox (%): 97 - Physical Exam General: Oriented x3, Moderate distress, Severe distress, Obese HEENT: Atraumatic, PERRLA, Mucous membr. moist/pink, EOMI, Sclerae nonicteric Neck: Supple, 2+ carotid pulse no bruit, No LAD, Without JVD or thyroid abnormality Respiratory: Diminished, Expiratory wheezes, Inspiratory wheezes Cardiovascular: Regular rate/rhythm, Normal S1 S2 Gastrointestinal: Normal bowel sounds, No tenderness Musculoskeletal: No tenderness Integumentary: No rashes Neurological: Normal gait, Normal speech, Normal strength at 5/5 x4 extr, Normal tone, Normal affect Lymphatics: No axilla or inguinal lymphadenopathy - Studies Laboratory Data (last 24 hrs) 05/18/22 15:43: PT 10.8, INR 0.98 05/18/22 15:43: WBC 4.80, Hgb 8.3 L, Hct 25.4 L, Plt Count 146 L 05/18/22 15:43: Sodium 139, Potassium 5.8 H*, BUN 86 H, Creatinine 5.13 H*, Glucose 166 H, Magnesium 2.3 Assessment and Plan - Problems (Diagnosis) (1) CKD (chronic kidney disease) stage 5, GFR less than 15 ml/min Current Visit: Yes Status: Chronic Plan: HE HAS WORSNED OVER TIME. LATELY HE SAW DR. HUA AND HE TOLD THEM THAT HE HAS PROGRESSED AND WILL NEED DIALYSIS BUT I AM NOT SURE WITH SEVERE COPD THAT IS REALLY POSSIBLE AND IF HE WILL COME OUT OF THIS ACUTE SITUATION. I TALKED TO HIS WFE ABOUT THIS. (2) COPD exacerbation Current Visit: No Status: Acute Plan: I TALKED TO ERPA LAST NIGHT. PATIENT LOOKS DEHYDRATED CLINICALLY. I ASKD HIM TO STOP LASIX AND TREAT COPD WITH STEROIDS, JNEBS AND ABX. PROGNOSIS IS POOR. HE WANTS TO BE DNR IF TERMINAL AND IN MY OPINION HE IS CLOSE TO BEING TERMINAL. (3) Hyperkalemia Current Visit: No Status: Acute Plan: [facility]. CKD 5 IS THE CAUSE PROGNOSIS POOR. - Advance Directives Does patient have a Living Will: No Does patient have a Durable POA for Healthcare: No
[2022-05-19] MEDS: CEFTRIAXONE 1,000 MG in NA CHLORIDE 0.9% 50 ML IVPB SCH (08:39)
[2022-05-19] MEDS ORDERED: ENOXAPARIN 40 MG/0.4 ML SQ SCH (09:00)
[2022-05-19] MEDS: ENOXAPARIN 30 MG/0.3 ML SQ SCH (10:16)
--- NOTE | 2022-05-19 10:38 | P.CNS ---
Date of Consult: 05/19/22 Reason for Consult: COPD exacerbation Chief Complaint: SHORT OF BREATH History of Present Illness: Patient is 76 years of age 3 of COPD continues to smoke gotten worse over the past 4 days continues oxygen daily now compliant with his trilogy at home and also uses Brovana has a productive cough history of sleep apnea Allergies niacin [From Niaspan Extended-Release] Allergy (Mild, Verified 11/07/21 00:17) Nausea/Vomiting paroxetine HCl [From Paxil] Allergy (Mild, Verified 11/07/21 00:17) Itching/Hives/Rash atorvastatin calcium [From Lipitor] Adverse Reaction (Intermediate, Verified 11/07/21 00:17) Muscle weakness paper tape Adverse Reaction (Uncoded 11/07/21 00:17) Rash Home Medications: Clopidogrel Bisulfate [Plavix*] 75 mg PO NOON 06/30/12 Tamsulosin [Flomax*] 0.4 mg PO BID 06/30/12 allopurinoL [Allopurinol] 300 mg PO NOON 11/30/13 Pantoprazole Sodium [Protonix] 1 tab PO DAILY 12/02/13 Rosuvastatin [Crestor*] 20 mg PO NOON 11/03/17 Albuterol Inhaler [Ventolin Inhaler*] 2 puff IH Q6H PRN 07/23/18 Duloxetine [Cymbalta *] 60 mg PO DAILY 07/23/18 Fluticasone/Umeclidin/Vilanter [Trelegy Ellipta 100-62.5-25] 1 each IH DAILY 07/23/18 Albuterol Neb [Proventil 0.083% Neb Soln] 1 unit IH Q6HP PRN 06/25/21 Arformoterol Tartrate [Brovana] 1 unit IH BID 06/25/21 Dutasteride [Avodart*] 1 tab PO NOON 06/25/21 Pregabalin [Lyrica] 150 mg PO BID 11/07/21 Amlodipine [Norvasc] 5 mg PO BID 05/19/22 Furosemide [Lasix] 40 mg PO BID 05/19/22 Hydralazine HCl 100 mg PO TID 05/19/22 Magnesium Oxide [Magnesium] 400 mg PO DAILY 05/19/22 Metoprolol Succinate [Toprol Xl*] 25 mg PO BID 05/19/22 - Past Medical/Surgical History Diabetic: No -: HTN -: Gout -: Ley's Cyst -: Prostate CA -: Kidney dx -: Cardiac cath x2 w/stent placement -: R illiac & coronary stents - Social History Smoking Status: Unknown if ever smoked Alcohol use: No CD- Drugs: No Caffeine use: No Place of Residence: Home Review of Systems 10-point ROS is otherwise unremarkable General: Weakness Respiratory: Cough, Shortness of Breath Physical Examination Temp Pulse Resp BP Pulse Ox 98.8 F 62 17 146/55 H 97 05/19/22 08:31 05/19/22 08:31 05/19/22 08:31 05/19/22 08:31 05/19/22 08:31 General: Alert, In no apparent distress, Mild distress Respiratory: Expiratory wheezes Cardiovascular: No edema, Regular rate/rhythm, Normal S1 S2 Gastrointestinal: Normal bowel sounds, Soft and benign Musculoskeletal: No clubbing, No swelling Integumentary: No rashes, No breakdown Laboratory Data (last 24 hrs) 05/18/22 15:43: PT 10.8, INR 0.98 05/18/22 15:43: WBC 4.80, Hgb 8.3 L, Hct 25.4 L, Plt Count 146 L 05/18/22 15:43: Sodium 139, Potassium 5.8 H*, BUN 86 H, Creatinine 5.13 H*, Glucose 166 H, Magnesium 2.3 - Problems (1) COPD exacerbation Current Visit: No Status: Acute Plan: Patient is 76 years of age admitted with worsening dyspnea over the past 4 days active smoker compliant with his trilogy at home also uses Brovana and albuterol on a as needed basis x-ray shows some cardiomegaly blood gases shows mild hypoxemia does have chronic renal failure seeing nephrology patient is also hyperkalemic blood gases do not show hypercapnia add a macrolide for his COPD exacerbation medications resumed normal 2D echo last year no lower extremity edema
[2022-05-19] MEDS ORDERED: FUROSEMIDE 40 MG/4 ML VIAL IV SCH (11:00)
[2022-05-19] MEDS ORDERED: CLOPIDOGREL 75 MG TABLET PO SCH (12:00)
[2022-05-19] MEDS: ROSUVASTATIN 10 MG TAB PO SCH (12:03)
[2022-05-19] MEDS: allopurinoL 300 MG TAB PO SCH (12:03)
[2022-05-19] MEDS: DUTASTERIDE 0.5 MG GEL CAP PO SCH (12:03)
[2022-05-19] MEDS: AZITHROMYCIN 250 MG TAB PO SCH (12:03)
[2022-05-19] MEDS: FUROSEMIDE 40 MG/4 ML VIAL IV SCH ×2 (13:38→16:36)
[2022-05-19] MEDS: HYDRALAZINE HCL 25 MG TABLET PO SCH ×2 (13:38→20:52)
[2022-05-19] MEDS ORDERED: PNEUMOCOCCAL VACCINE 0.5 ML IMVAC ONE (15:00)
--- NOTE | 2022-05-19 16:43 | CON ---
Date of Consultation: 05/19/2022 Reason For Consult: Acute on chronic renal insufficiency. History Of Present Illness: Mr. Vaughn is a 76-year-old male with past medical history significant for history of longstanding hypertension, COPD, oxygen dependent intermittently. He has been followe d by Dr. Dacosta for management of his chronic kidney disease. He had advanced kidney disease. However , he was doing okay and we have been discussing with him about initiating dialysis at a later time. However, he was starting to develop worsening shortness of breath, initially on exertion and then mor e at rest and he was given antibiotic to see if some of his symptoms could be related to bronchitis. However, he felt better initially but then started to get worse and hence has brought him to [facility] for further evaluation. In the emergency room, he was found to have severe hypoxia with O 2 saturations in the 80s and it was only increased up to a low 90s with the oxygen. He was given omid e IV Lasix and has been admitted for further evaluation of pulmonary edema and worsening renal functi on. Past Medical History: Significant for history of BPH, on tamsulosin, history of gout, hypertension, history of COPD, peripheral neuropathy, on Lyrica, prostate cancer, history of heart catheterizations with the stent placement, history of peripheral vascular disease with right iliac and coronary stent s. Social History: He is a current everyday smoker for many years. He denies any alcohol use. No othe r illicit drug use reported. Family History: Noncontributory at this time. Review of Systems: Positive for some confusion, shortness of breath at rest as well as on exertion, weakness, lethargy, and paroxysmal nocturnal dyspnea is also reported. Denies any chest pain. Denies any abdominal pain . Denies any nausea, vomiting, or diarrhea. All other review of systems is negative. Physical Examination: Vital Signs: At this time are showing temperature of 98.3, pulse rate of 87, respiratory rate of 20, and blood pressure 156/73. He is saturating 94% on 4 L nasal cannula. General: He appears in alpc-ih-dwxwwrrv distress with respiratory distress. He was on BiPAP last ni ght and he felt better, this morning. HEENT: Shows atraumatic head. Neck: No JVD was noted. Lungs: Auscultation of the lungs revealed diminished breath sounds at bilateral bases with occasiona l crackles. Heart: Auscultation of the heart revealed regular rate and rhythm. Abdomen: Obese, nontender. Extremities: Showed no evidence of edema. Laboratory Data: At this time are showing sodium of 139, potassium of 6.5, chloride of 112, BUN of 8 5, and creatinine of 4.96. Lactic acid was normal and calcium was 8.9. Procalcitonin was slightly e levated. ProBNP was elevated. CBC showing hemoglobin of 8.2, hematocrit of 24.7, and platelet count of 144, and WBC count of 2.7. Current Medications: Include albuterol p.r.n. q.6 hours, allopurinol 300 mg a day, azithromycin 500 mg daily, Plavix at noon, Avodart, Lovenox daily for deep vein thrombosis prophylaxis, furosemide 40 mg daily, hydralazine 100 mg t.i.d., metoprolol, Rocephin, rosuvastatin, and he got 1 time dose of Ka yexalate. Imaging: Chest x-ray was consistent with the pulmonary edema. Impression: 1.Acute on chronic renal insufficiency with the worsening hyperkalemia and volume status. We will g o ahead and aggressively diurese him with Lasix 40 mg every 8 hours and monitor his volume status mamadou leroyy. However, given the fact that he is also uremic with some asterixis noted on examination, I hav e discussed with the patient and his in detail regarding starting dialysis on him and they are b oth agreeable to go ahead and get hemodialysis started for at least for acute renal failure and jessica nue to monitor his renal function closely. He is interested in doing peritoneal dialysis at a later time if he determined that he is not recovering his kidney function. We will switch him to peritonea l dialysis, but at this time because of ongoing volume issues, potassium issues and uremia, we will g o ahead and get dialysis started on him. I will go ahead and stop his steroids as there is no eviden ce of any volume overload and to prevent further worsening of his confusion at this time. Also, I wi ll go ahead and hold the Plavix because of in anticipation for dialysis catheter placement and we can resume it after dialysis catheter has been placed. I will increase his Lasix to 40 mg every 8 hours . 2.Confusion with altered mental status, likely secondary to ongoing uremia and the steroid use. 3.Coronary artery disease, currently troponin is normal. We will continue to monitor him and avoid further cardiac stress and try to diurese him. 4.Anemia secondary to chronic kidney disease. We will need to check iron panel on him and start him on Retacrit to maintain his hemoglobin levels while he remains hospitalized. 5.Hyperkalemia secondary to chronic kidney disease. He has gotten a dose of Kayexalate. I will put him on a renal diet and monitor his potassium with diuresis. Plan: Overall, patient and his are okay with proceeding for dialysis. We will request General Surgery consult for placement of a tunneled dialysis catheter and monitor his labs closely and repeat his potassium again in the afternoon. We will hold his Plavix in anticipation for the procedure. I ncrease his diuresis and monitor him. VV/MODL Voice ID: [id number] Report ID: [id number]
[2022-05-19] MEDS ORDERED: METHYLPREDNISOLONE 40 MG INJ IV SCH (17:00)
[2022-05-19 17:03] LABS: Protime INR 1.07
[2022-05-19 17:16] LABS: Potassium 5.2 mmol/L (3.5-5.1)
[2022-05-19] MEDS: AMLODIPINE 5 MG TAB PO SCH (20:52)
[2022-05-19] MEDS: TAMSULOSIN 0.4 MG SR CAP PO SCH (20:52)
[2022-05-19] MEDS: METOPROLOL XL 25 MG TAB PO SCH (20:57)
[2022-05-20] MEDS ORDERED: IPRATROPIUM BROM 0.5MG/2.5ML NEB PRN (00:14)
[2022-05-20] MEDS ORDERED: ALBUTEROL 2.5 MG/3 ML NEB SOL NEB PRN (00:14)
--- NOTE | 2022-05-20 00:21 | P.PN ---
Subjective Date of Service: 05/19/22 Subjective: No new changes, No C/O voiced, Improving patient is clinically feeling a little bit better. Patient was admitted for respiratory distress and found to have acute renal failure. Patient's looks to have end-stage renal disease and we are going to arrange for hemodialysis. Surgery consultation for hemodialysis access catheter. Nephrology has seen the patient and plan to dialyze tomorrow after the catheter is placed. Continue with COPD treatment with long-acting beta agonist and we may do inhaled steroids. IV steroids have been stopped. Review of Systems 10-point ROS is otherwise unremarkable Physical Examination - Vital Signs Temperature: 99.6 F Blood Pressure: 140/65 Pulse: 91 Respirations: 19 Pulse Ox (%): 90 - Physical Exam General: Alert, In no apparent distress, Oriented x3 Respiratory: Diminished, Expiratory wheezes Cardiovascular: Regular rate/rhythm, Normal S1 S2, No murmurs Gastrointestinal: Normal bowel sounds, Soft and benign, Non-distended, No tenderness Musculoskeletal: No clubbing, No swelling, No tenderness Neurological: Sensation intact, Cranial nerves 3-12 intact - Studies Medications List Reviewed: Yes Assessment & Plan - Problems (Diagnosis) (1) ESRD (end stage renal disease) Current Visit: Yes Status: Acute (2) CAD (coronary artery disease) Onset Date: 11/04/17 Current Visit: No Status: Chronic (3) COPD (chronic obstructive pulmonary disease) Onset Date: 11/04/17 Current Visit: No Status: Chronic Qualifiers: COPD type: emphysema (4) MCKINLEY (obstructive sleep apnea) Onset Date: 11/04/17 Current Visit: No Status: Chronic - Plan Plan: 1. Arrange for hemodialysis 2. NPO after midnight 3. Continue with nebs. Add Brovana and ipratropium twice a day 4. Inhaled steroids as IV steroids are on hold 5. Strict blood pressure and blood sugar control 6. GI/ DVT prophylaxis Discharge Plan: Home Plan to discharge in: Greater than 2 days - Advance Directives Does patient have a Living Will: No Does patient have a Durable POA for Healthcare: No - Code Status/Comfort Care Code Status Assessed: Yes Code Status: Full Code Critical Care: No Time Spent Managing PTS Care (In Minutes): 35
--- NOTE | 2022-05-20 00:22 | P.PN ---
Date of Service: 05/20/22 Subjective Patient is a 68-year-old gentleman who came to the hospital with shortness of breath and COPD exacerbation. Patient was also found to have end-stage renal disease and family decided to proceed with hemodialysis. We did dialysis access catheter this morning. However during dialysis it was kinked and surgery is going to have to replace this in the morning. Will repeat electrolytes in the morning as well. Patient's respiratory status has improved. Clinically, patient is doing well so we will continue with current treatment plan. Will sign off back to patient's primary care provider, Dr. Stratton, in the morning. Review of Systems 10-point ROS is otherwise unremarkable Physical Examination - Vital Signs reviewed - Physical Exam General: Alert, In no apparent distress, Oriented x3 Respiratory: Diminished, Expiratory wheezes Cardiovascular: Regular rate/rhythm, Normal S1 S2, No murmurs Gastrointestinal: Normal bowel sounds, Soft and benign, Non-distended, No tenderness Musculoskeletal: No clubbing, No swelling, No tenderness Neurological: Sensation intact, Cranial nerves 3-12 intact Assessment & Plan - Problems (Diagnosis) (1) ESRD (end stage renal disease) Current Visit: Yes Status: Acute (2) CAD (coronary artery disease) Onset Date: 11/04/17 Current Visit: No Status: Chronic (3) COPD (chronic obstructive pulmonary disease) Onset Date: 11/04/17 Current Visit: No Status: Chronic Qualifiers: COPD type: emphysema (4) MCKINLEY (obstructive sleep apnea) Onset Date: 11/04/17 Current Visit: No Status: Chronic - Plan Continue plan of care as mentioned below: 1. Arrange for hemodialysis as an outpt 2. NPO after midnight for replacing HD access catheter 3. Continue with nebs. Add Brovana and ipratropium twice a day 4. Inhaled steroids as IV steroids are on hold 5. Strict blood pressure and blood sugar control 6. Monitor cardiac status 7. GI/ DVT prophylaxis
[2022-05-20] MEDS: FUROSEMIDE 40 MG/4 ML VIAL IV SCH ×3 (01:32→16:23)
[2022-05-20 06:03] LABS: Blood Gas Oxyhemoglobin 94.2 % (94-97); Blood O2 Saturation 96.4 % (92-98.5)
[2022-05-20 06:55] LABS: Absolute Lymphocytes (CBC) 0.9 K/uL (0.7-4.9); Lymphocytes % 13.5 % (15.3-44.8); MCV 95.6 fL (80-100); MPV 9.6 fL (7.6-11.3); RBC Red Blood Cell Count 2.51 M/uL (4.33-5.43)
[2022-05-20 06:59] LABS: Protime INR 0.95
[2022-05-20 07:15] LABS: Albumin 2.9 g/dL (3.4-5.0); Bilirubin Total 0.3 mg/dL (0.2-1.0); Potassium 5.4 mmol/L (3.5-5.1); Protein, Total 6.6 g/dL (6.4-8.2)
[2022-05-20] MEDS: INSULIN -REGULAR HUMAN 50 UNIT/0.5 ML ML SQ SCH ×4 (07:30→21:00)
[2022-05-20 08:23] LABS: Hepatitis B Core Ab, Total Nonreactive (Nonreactive)
[2022-05-20 08:24] LABS: Hepatitis B Surface Ab - Quant < 3.10 mIU/mL (<8.0)
[2022-05-20] MEDS: CEFTRIAXONE 1,000 MG in NA CHLORIDE 0.9% 50 ML IVPB SCH (08:31)
[2022-05-20] MEDS: TAMSULOSIN 0.4 MG SR CAP PO SCH ×2 (08:32→21:36)
[2022-05-20] MEDS: AMLODIPINE 5 MG TAB PO SCH ×2 (08:32→21:37)
[2022-05-20] MEDS: AZITHROMYCIN 250 MG TAB PO SCH (08:32)
[2022-05-20] MEDS: METOPROLOL XL 25 MG TAB PO SCH ×2 (08:32→21:36)
[2022-05-20] MEDS: PANTOPRAZOLE 40MG TABLET PO SCH (08:32)
[2022-05-20] MEDS: HYDRALAZINE HCL 25 MG TABLET PO SCH ×3 (08:32→21:36)
[2022-05-20] MEDS: DULOXETINE 20 MG CAP PO SCH (08:32)
[2022-05-20] MEDS: HOME MED 1 EA UNK (Fluticasone/Umeclidin/Vilanter [Trelegy Ellipta 100-62.5-25] Blst.W.Dev IH SCH (08:33)
[2022-05-20] MEDS: IPRATROPIUM BROM 0.5MG/2.5ML NEB SCH ×2 (08:46→19:10)
[2022-05-20] MEDS: ARFORMOTEROL TARTRATE 15 MCG/2 ML VIAL.NEB NEB SCH ×2 (08:46→19:10)
[2022-05-20] MEDS ORDERED: FUROSEMIDE 40 MG/4 ML VIAL IV SCH (09:00)
[2022-05-20] MEDS ORDERED: NS 0.9% VIAL 10 ML ONE ×2 (09:27→09:50)
[2022-05-20] MEDS ORDERED: HEPARIN 5000 UNIT/ML 1 ML VIAL ONE (09:27)
[2022-05-20] MEDS ORDERED: NA CHLORIDE 0.9% 50 ML ONE (09:28)
[2022-05-20] MEDS ORDERED: FENTANYL CITR 100 MCG/2 ML ONE (09:33)
[2022-05-20] MEDS ORDERED: LIDOCAINE 1% MPF 5 ML VIAL ONE (09:33)
[2022-05-20] MEDS ORDERED: propofoL 200 MG/20 ML VIAL IV ONE (09:33)
[2022-05-20] MEDS ORDERED: ONDANSETRON 4 MG/2 ML VIAL ONE (09:34)
[2022-05-20] MEDS ORDERED: dexAMETHasone 4 MG/ML VIAL ONE (09:34)
[2022-05-20] MEDS ORDERED: NA CHLORIDE 0.9% 500 ML ONE (09:49)
[2022-05-20] MEDS ORDERED: Phenylephrine HCl 10 MG/ML 1 ML VIAL ONE (09:50)
[2022-05-20] MEDS ORDERED: CEFAZOLIN SODIUM 1 GM/VIAL ONE (10:00)
--- NOTE | 2022-05-20 10:39 | P.OP ---
Cylinder Block Hole Reliner: Jovita Davey Preoperative diagnosis: End Stage Renal Disease - Need for Dialysis Postoperative diagnosis: End Stage Renal Disease - Need for Dialysis Primary procedure: Placement of RIGHT internal jugular tunnelled HD catheter Secondary procedure: ultrasound and flouroscopy with interpretation Anesthesia: MAC + local Estimated blood loss: <10cc Specimen: none Findings: dark non pulsatile blood returned, catheter in SVC Complications: None Implants: 19cm Hemosplit catheter Transferred to: Recovery Room Condition: Good
[2022-05-20] MEDS: DUTASTERIDE 0.5 MG GEL CAP PO SCH (11:34)
[2022-05-20] MEDS: ROSUVASTATIN 10 MG TAB PO SCH (11:34)
[2022-05-20] MEDS: allopurinoL 300 MG TAB PO SCH (11:34)
--- NOTE | 2022-05-20 11:46 | RAD REPORT ---
EXAM DESCRIPTION: RAD - Fluoroscopy <1 Hour - 05/20/2022 11:27 am CLINICAL HISTORY: Venous catheter insertion. HD CATHETER PLACEMENT DONE IN OR 1 COMPARISON: Vent Perfusion VQ Scan dated 11/07/2021 FINDINGS: Fluoroscopic imaging is submitted from placement of a venous catheter. Details of the pro cedure not available. Fluoroscopy time: 0.2 minutes.
--- NOTE | 2022-05-20 11:48 | RAD REPORT ---
EXAM DESCRIPTION: RAD - Chest Single View - 05/20/2022 11:27 am CLINICAL HISTORY: as/p HD cath placement Chest pain. COMPARISON: Chest Single View dated 05/18/2022; Chest Single View dated 04/30/2022; Chest Single View dated 11/06/2021; Chest Single View dated 06/24/2021 FINDINGS: Right-sided dialysis catheter has tip in the SVC superiorly. No pneumothorax. Prominent ki nk in the tubing is seen near the clavicle. Findings discussed with Dr. Hughes.
--- NOTE | 2022-05-20 12:00 | OP ---
Date of Procedure: 05/20/2022 Surgeon: Inder Siddiqui MD, Preoperative Diagnosis: End-stage renal disease - need for dialysis access. Postoperative Diagnosis: End-stage renal disease - need for dialysis access. Procedure Performed: Placement of a right internal jugular tunneled hemodialysis catheter using ultrasound and fluoroscopic guidance with interpretation. Anesthesia: MAC plus local with 0.25% Marcaine. Estimated Blood Loss: 10 cc. Specimen: None. Findings: Dark nonpulsatile blood return, catheter confirmed position of the confluence of the superior vena cava. Complications: None. Implants: A 19 cm tunneled HemoSplit catheter placed, right internal jugular vein. Disposition: The patient was transferred to the recovery room in good condition. Procedure In Detail: After informed consent was obtained, the patient was brought to the operating room, prepped and draped in the usual sterile fashion after adequate anesthesia was achieved. I had interrogated the area of the right internal jugular vein using ultrasound guidance. At this point, I anesthetized the skin and entire tract of the proposed area for catheter access placement. I then proceeded to cannulate the right internal jugular vein on the first attempt using a microintroducer needle. At this point, microwire was advanced, the needle was removed and fluoroscopic guidance confirmed the position in the confluence of the superior vena cava. At this point, a small andres incision was made over the insertion site and placed introducer sheath over the microwire. The microwire was removed and a standard catheter wire was then advanced. Once again, fluoroscopic guidance confirmed the position of the wire into the confluence of the SVC into the right atrium and ectopy was appreciated. Standard wire to the confluence of the superior vena cava. At this point, I anesthetized the tract area once again on the chest wall in the infraclavicular position. I then made a andres incision for the catheter placement using tunneling device. I brought the catheter out through the insertion site at this point and oriented appropriately. At this point, I then performed sequential dilatation using Seldinger technique over the wire. Ultimately, I placed in the introducer sheath into the appropriate position. At this point, the catheter was confirmed in the confluence of the SVC using fluoroscopic guidance. I then tested both ports and both gertrude back dark red nonpulsatile blood easily and flushed quite easily with saline and then packed with heparin super flush at this point. The patient was taken out of steep Trendelenburg position at this point. I irrigated the area of the insertion and the exit site. I then closed these with interrupted 3-0 nylon sutures and secured the catheter to the chest wall using the same said 3-0 nylon suture. Sterile dressing placed over top. A final x-ray was confirmed position of the catheter in the appropriate position in the SVC. The patient tolerated the procedure well without evidence of complication and transferred to PACU in good condition. All counts were correct at the end of the case. DWAIN/WILLIAM Voice ID: [id number] Report ID: [id number]
--- NOTE | 2022-05-20 12:06 | CON ---
Date of Consultation: 05/20/2022 Brief History Of Present Illness: The patient is a 76-year-old male with a history of severe COPD wi th CKD stage 5 and severe atherosclerosis from significant tobacco abuse history, who currently jessica nues to smoke. He presented to the hospital with worsening dyspnea, shortness of breath, and fatigue . He had progressive worsening of his shortness of breath. He denied chest pain, however. During h is convalescence to the hospital, he was found to have worsening renal function and as such, it was d ecided the patient should have a hemodialysis access placed at this point to help optimize his cardio pulmonary and respiratory systems as well as to address his renal dysfunction. Past Medical History: Significant for severe COPD, hypertension, gout, prostate cancer, CKD stage 5, coronary artery disease, peripheral arterial disease, hyperlipidemia, neuropathy. Past Surgical History: He has had multiple coronary artery interventions with stents. He has had a right iliac and coronary stents placed. Allergies: TO NIACIN, PAXIL, LIPITOR, AND PAPER TAPE. Home Medications: Include Plavix, Flomax, allopurinol, Protonix, Crestor, Ventolin, Cymbalta, Treleg y, Proventil, Brovana, Avodart, Lyrica, Norvasc, Lasix, hydralazine, Mag-Ox, and Toprol. Social History: Smoking, he continues to smoke cigarettes every day. Denies alcohol or recreational drug use. Review of Systems: Ten-point review of systems other than HPI, he admits to weakness and malaise. Physical Examination: Vital Signs: At the time of my examination; blood pressure 112/74, pulse rate was 73, respiratory ra te 18, temperature 98.3, saturation on 3 L of oxygen was 90%. His BMI is 33.1. General: At the time of my examination; he is awake, alert, oriented. Psychiatric: He is appropriate, conversive. He is obese. He does have some mild respiratory distre ss. HEENT: He is normocephalic. His sclerae were anicteric. His mucous membranes were somewhat dry. H is oropharynx was clear. Neck: Supple without JVD. Chest: Expansion and excursion. Respiratory: Decreased breath sounds and wheezes are evident on inspiration and expiration phases. Cardiovascular: Regular rate and rhythm. Abdomen: Soft. Extremities: He has swelling and edema in all 4 extremities, but not severe at this time. Skin: Otherwise warm and dry. Laboratory Data: Revealed a white blood cell count of 7.0. His hemoglobin was 8 over hematocrit 24. His platelets were 148. PT 10.5, INR 0.95, PTT 32.9. His sodium was 139, potassium 5.4, chloride 109, carbon dioxide 23, BUN is 96, creatinine 4.69. His GFR is 12, glucose is 125. His calcium is 8 .7. ProBNP is 8044. He had imaging performed, which included a chest x-ray on 05/18/2022, officiall y read as findings most consistent with interstitial pulmonary edema and small to [id number] e left and right pleural effusions. Pneumonia difficult to exclude radiographically. Assessment And Plan: This is a 76-year-old male, who comes in with signs and symptoms of progressive worsening respiratory function and worsening renal dysfunction. 1.Continue medical management per Renal and primary medical teams including Dr. Stratton. 2.I have discussed the risks, benefits, and alternatives of placement of a tunneled hemodialysis cat heter including, but not limited to bleeding, infection; damage to the heart, lungs, great vessels, b lood clots, strokes; need for further operation and procedures. The patient agrees to proceed as ind icated. Thank you for this interesting consult. DWAIN/WILLIAM Voice ID: [id number] Report ID: [id number]
--- NOTE | 2022-05-20 20:00 | PN ---
Date of Progress Note: 05/20/2022 Subjective: The patient seen and examined at bedside. His shortness of breath is improved a little bit. The patient had a tunneled dialysis catheter placed in his right chest. It is slightly bent be cause of the patient's positioning probably, but otherwise he feels okay. Denies any other acute iss ues. He is mostly lethargic and sleepy for the most part, but he is able to answer his questions wel l. Objective: Vital Signs: Have been reviewed and are stable. He is saturating 94% on 3 L of nasal ca nnula oxygen. General: He appears in no acute distress. Lungs: Clear to auscultation with diminished breath sounds at bases. Abdomen: Obese and nontender. Extremities: Without any evidence of edema. Laboratory Data: Showing creatinine of 4.69 and BUN of 96, sodium of 139 and potassium of 5.4 this m orning. CBC showing hemoglobin of 8, hematocrit of 24, and platelet count of 148. His hepatitis ser ologies are back and his hepatitis B surface antigen is nonreactive time. Impression: 1.Acute on chronic renal insufficiency needing dialysis for volume overload and hyperkalemia. The p tierra has had a tunneled dialysis catheter placed and will be getting dialysis today for 2.5 hours a nd 1-2 L will be ultrafiltrated as tolerated with BFR of 250 and DFR of 500. We will plan for dialys is again tomorrow and we will request case management consult to place him at the outpatient dialysis unit. 2.Hypertension. Continue home medications at this time. Avoid BAILEY inhibitors and ARBs for now. 3.Anemia secondary to chronic disease. We will request iron panel and start Retacrit as tolerated b ased on the iron panel. 4.Hyperkalemia should start improving with dialysis. 5.Underlying chronic obstructive pulmonary disease with chronic respiratory failure. Continue nebul izer treatments and pulmonary toilet. His main issue right now is pulmonary edema. Continue azithro mycin for right now. Avoid any steroids. Plan: Overall, the patient is doing okay. He still continues to have shortness of breath despite ne gative fluid balance. We will plan for dialysis today as mentioned above and request case management consult for placement and outpatient dialysis unit. VV/MODL Voice ID: [id number] Report ID: [id number]
[2022-05-20] MEDS ORDERED: ACETAMINOPHEN 500 MG TAB PO ONE (21:51)
[2022-05-21] MEDS: FUROSEMIDE 40 MG/4 ML VIAL IV SCH ×3 (00:21→16:57)
[2022-05-21 03:58] LABS: Absolute Lymphocytes (CBC) 0.7 K/uL (0.7-4.9); Hematocrit 24.1 % (39.6-49.0); Lymphocytes % 11.8 % (15.3-44.8); MCV 96.5 fL (80-100)
[2022-05-21 04:30] LABS: Potassium 5.4 mmol/L (3.5-5.1)
[2022-05-21 05:10] VITALS: BMI 33.5
[2022-05-21 06:07] LABS: Arterial Blood Carboxyhemoglob 1.1 % (0-1.5); Blood Gas Oxyhemoglobin 90.1 % (94-97); Blood O2 Saturation 92.2 % (92-98.5)
[2022-05-21] MEDS: INSULIN -REGULAR HUMAN 50 UNIT/0.5 ML ML SQ SCH ×4 (07:30→21:00)
[2022-05-21] MEDS ORDERED: NA CHLORIDE 0.9% 500 ML ONE (07:31)
[2022-05-21] MEDS ORDERED: NS 0.9% VIAL 0 ML ONE (07:36)
[2022-05-21] MEDS ORDERED: HEPARIN 5000 UNIT/ML 1 ML VIAL ONE (07:37)
[2022-05-21] MEDS ORDERED: NA CHLORIDE 0.9% 50 ML ONE (07:37)
[2022-05-21] MEDS ORDERED: propofoL 200 MG/20 ML VIAL IV ONE (07:54)
[2022-05-21] MEDS ORDERED: FENTANYL CITR 100 MCG/2 ML ONE (07:54)
[2022-05-21] MEDS ORDERED: LIDOCAINE 2% MPF 5 ML VIAL ONE (07:54)
[2022-05-21] MEDS: IPRATROPIUM BROM 0.5MG/2.5ML NEB SCH ×3 (08:00→19:23)
[2022-05-21] MEDS: ARFORMOTEROL TARTRATE 15 MCG/2 ML VIAL.NEB NEB SCH ×3 (08:00→19:23)
[2022-05-21] MEDS ORDERED: CEFAZOLIN SODIUM 1 GM/VIAL ONE (08:13)
[2022-05-21] MEDS ORDERED: NS 0.9% VIAL 10 ML ONE (08:16)
[2022-05-21] MEDS ORDERED: dexAMETHasone 10 MG/ML VIAL ONE (08:27)
[2022-05-21] MEDS ORDERED: ONDANSETRON 4 MG/2 ML VIAL ONE (08:29)
--- NOTE | 2022-05-21 08:31 | P.PN ---
Date of Service: 05/21/22 Vital Signs Temp Pulse Resp BP Pulse Ox 97.1 F 67 18 113/53 L 93 05/21/22 04:00 05/21/22 04:00 05/21/22 04:00 05/21/22 04:00 05/21/22 04:00 Medications Albuterol Sulfate (Albuterol 2.5 Mg/3 Ml Neb Jessica) 2.5 mg NEB Q6H PRN PRN Reason: SHORTNESS OF BREATH Allopurinol (Allopurinol 300 Mg Tab) 300 mg PO NOON [facility] [place] Last Admin: 05/20/22 11:34 Dose: 300 mg Amlodipine Besylate (Amlodipine 5 Mg Tab) 5 mg PO BID [facility] [place] Last Admin: 05/20/22 21:37 Dose: 5 mg Arformoterol Tartrate (Arformoterol Tartrate 15 Mcg/2 Ml Vial.Neb) 15 mcg NEB BIDRESP [facility] [place] Last Admin: 05/20/22 19:10 Dose: 15 mcg Azithromycin (Azithromycin 250 Mg Tab) 500 mg PO DAILY [facility] [place] Last Admin: 05/20/22 08:32 Dose: 500 mg Duloxetine HCl (Duloxetine 20 Mg Cap) 60 mg PO DAILY [facility] [place] Last Admin: 05/20/22 08:32 Dose: 60 mg Dutasteride (Dutasteride 0.5 Mg Gel Cap) 0.5 mg PO NOON [facility] [place] Last Admin: 05/20/22 11:34 Dose: 0.5 mg Enoxaparin Sodium (Enoxaparin 30 Mg/0.3 Ml) 30 mg SQ DAILY [facility] [place] Last Admin: 05/19/22 10:16 Dose: 30 mg Furosemide (Furosemide 40 Mg/4 Ml Vial) 40 mg IV Q8HR [facility] [place] Last Admin: 05/21/22 00:21 Dose: 40 mg Glucagon (Glucagon 1 Mg/Vial) 1 mg IM 1X PRN PRN Reason: HYPOGLYCEMIA Home Med (Fluticasone/Umeclidin/Vilanter [Trelegy Ellipta 100-62.5-25]) 1 each IH DAILY [facility] [place] Last Admin: 05/20/22 08:33 Dose: 1 each Hydralazine HCl (Hydralazine Hcl 25 Mg Tablet) 100 mg PO TID [facility] [place] Last Admin: 05/20/22 21:36 Dose: 100 mg Ceftriaxone Sodium 1,000 mg/ (Sodium Chloride) 50 mls @ 100 mls/hr IVPB DAILY [facility] [place]; Protocol Last Admin: 05/20/22 08:31 Dose: 50 mls Dextrose (Dextrose 10% Water Iv Soln.) 125 mls @ 0 mls/hr IV .Q0M PRN PRN Reason: HYPOGLYCEMIA Insulin Human Regular (Insulin -Regular Human 50 Unit/0.5 Ml Ml) 0 unit SQ ACHS [facility] [place]; Protocol Last Admin: 05/20/22 21:00 Dose: Not Given Ipratropium Drury (Ipratropium Brom 0.5mg/2.5ml) 0.5 mg NEB [id number] PRN PRN Reason: SHORTNESS OF BREATH Ipratropium Dr[place] (Ipratropium Brom 0.5mg/2.5ml) 0.5 mg NEB BIDRESP [facility] [place] Last Admin: 05/20/22 19:10 Dose: 0.5 mg Metoprolol Succinate (Metoprolol Xl 25 Mg Tab) 25 mg PO BID [facility] [place] Last Admin: 05/20/22 21:36 Dose: 25 mg Ondansetron HCl (Ondansetron 4 Mg/2 Ml Vial) 4 mg IV Q6H PRN PRN Reason: NAUSEA / VOMITING Pantoprazole Sodium (Pantoprazole 40mg Tablet) 40 mg PO DAILY [facility] [place] Last Admin: 05/20/22 08:32 Dose: 40 mg Pregabalin (Pregabalin 150 Mg Cap) 150 mg PO BID [facility] [place] Rosuvastatin Calcium (Rosuvastatin 10 Mg Tab) 20 mg PO NOON [facility] [place] Last Admin: 05/20/22 11:34 Dose: 20 mg Tamsulosin HCl (Tamsulosin 0.4 Mg Sr Cap) 0.4 mg PO BID [facility] [place] Last Admin: 05/20/22 21:36 Dose: 0.4 mg Microbiology Results 05/18/22 16:01 Blood - Blood Aerobic Blood Culture - Preliminary No growth in 24 hours. 05/18/22 16:01 Blood - Blood Anaerobic Blood Culture - Preliminary No growth in 24 hours. 05/18/22 15:43 Blood - Blood Aerobic Blood Culture - Preliminary No growth in 24 hours. 05/18/22 15:43 Blood - Blood Anaerobic Blood Culture - Preliminary No growth in 24 hours. Assessment/ Plan: Nephrology No dyspnea No chest pain No acute events overnight Seen and examined in the PACU Vitals, medications, blood work and imaging reviewed in the chart NAD. NCAT. MMM. Diminished breath sounds. RRR. Abd ND. LE Edema none. No rash. AAO. Normal speech. ESRD -Initiate dialysis Hyperkalemia -Renal diet HTN with CKD -Continue Amlodipine -Continue Metoprolol Pulmonary Edema -Low sodium diet -Daily weight -Continue Lasix -Initiate HD with UF DM II with CKD & Polyneuropathy -RISS -Reduce the Lyrica for renal dosing Hypoalbuminemia -Recommend protein supplementation Anemia in CKD -Start Retacrit CKD MBD PTH 98 -Start Ergo BPH with LUTS -Continue Flomax PAD sp stents Cigarette smoker -Recommend tobacco cessation EXAM DESCRIPTION: US - Renal Ultrasound-Complete - 04/30/2022 8:59 pm CLINICAL HISTORY: kidney disease COMPARISON: Renal Ultrasound-Complete dated 03/10/2022 FINDINGS: The right kidney measures grossly 12.1 x 7.3 cm. The left kidney measures grossly 10.3 x 6.0 cm. Increased renal cortical echogenicity is present in both kidneys. Right renal cortex thickness within normal range. Left renal cortex also appears to be normal range though assessment is more limited due to the size and number of large left renal cysts. No hydronephrosis present. Patient has multiple bilateral renal cysts, larger on the left. Cysts measure up to 14 cm in size. No bladder wall thickening or mass. No intraluminal stone or mass. IMPRESSION: No hydronephrosis of either kidney. Multiple large renal cysts are present up to 14 cm in size. Bilateral medical renal disease evident. LEFT VENTRICULAR WALL MOTION: NORMAL. DOPPLER/COLOR FLOW: NORMAL. COMMENTS: NORMAL 2D ECHO WITH EXAM DESCRIPTION: RAD - Chest Single View - 05/18/2022 3:26 pm CLINICAL HISTORY: SOB COMPARISON: Chest Single View dated 04/30/2022; Chest Single View dated 11/06/2021; Chest Single View dated 06/24/2021; Chest Pa And Lat (2 Views) dated 07/23/2018; CHEST SINGLE VIEW dated 12/03/2013 FINDINGS: Lines: None. Lungs: Diffuse prominence of the pulmonary interstitium. Pleural: Moderate left effusion. Probable small right pleural effusion. Cardiac: Cardiomegaly. Mediastinum: Within normal limits. Bones: No acute fractures. Other: None IMPRESSION: Findings most consistent with interstitial pulmonary edema and small moderate left and small right pleural effusions. Pneumonia difficult to exclude radiographically. EXAM DESCRIPTION: RAD - Chest Single View - 05/20/2022 11:27 am CLINICAL HISTORY: as/p HD cath placement Chest pain. COMPARISON: Chest Single View dated 05/18/2022; Chest Single View dated 04/30/2022; Chest Single View dated 11/06/2021; Chest Single View dated 06/24/2021 FINDINGS: Right-sided dialysis catheter has tip in the SVC superiorly. No pneumothorax. Prominent kink in the tubing is seen near the clavicle. Findings discussed with Dr. Hughes.
[2022-05-21] MEDS: METOPROLOL XL 25 MG TAB PO SCH ×2 (09:00→21:27)
[2022-05-21] MEDS: HYDRALAZINE HCL 25 MG TABLET PO SCH ×3 (09:00→21:26)
[2022-05-21] MEDS: HOME MED 1 EA UNK (Fluticasone/Umeclidin/Vilanter [Trelegy Ellipta 100-62.5-25] Blst.W.Dev IH SCH (09:00)
[2022-05-21] MEDS ORDERED: DRISDOL (VITAMIN D=ERGOCALCIFEROL) 50000 UNIT CAP PO SCH (09:00)
[2022-05-21] MEDS: AMLODIPINE 5 MG TAB PO SCH ×2 (09:00→21:25)
[2022-05-21] MEDS: DOCUSATE NA 100 MG CAP PO SCH ×2 (09:00→21:25)
[2022-05-21] MEDS: CEFTRIAXONE 1,000 MG in NA CHLORIDE 0.9% 50 ML IVPB SCH (09:00)
[2022-05-21] MEDS: NEPRO SHAKE 237 ML CAN PO SCH ×3 (09:00→21:26)
[2022-05-21] MEDS ORDERED: PREGABALIN 150 MG CAP PO SCH (09:00)
[2022-05-21] MEDS: TAMSULOSIN 0.4 MG SR CAP PO SCH ×2 (09:00→21:25)
--- NOTE | 2022-05-21 09:06 | P.OP ---
Preoperative diagnosis: Need for Dialysis Postoperative diagnosis: Need for Dialysis Primary procedure: Placement of LEFT internal jugular tunnelled HD catheter Secondary procedure: ultrasound and flouroscopy with interpretation Anesthesia: GETA + Local Estimated blood loss: < 10cc Specimen: none Findings: dark non pulsatile blood returned, catheter in SVC Complications: None Implants: 24 cm Curved Hemosplit catheter Transferred to: Recovery Room Condition: Good
[2022-05-21] MEDS ORDERED: NA CHLORIDE 0.9% 1,000 ML IV PRN (09:22)
--- NOTE | 2022-05-21 09:23 | RAD REPORT ---
EXAM DESCRIPTION: RAD - Fluoroscopy <1 Hour - 05/21/2022 9:05 am CLINICAL HISTORY: Venous catheter insertion. HD CATH PLACEMENT COMPARISON: Fluoroscopy <1 Hour dated 05/20/2022 FINDINGS: Fluoroscopic imaging is submitted from placement of a venous catheter. Details of the pro cedure not available. Fluoroscopy time: 64 seconds
--- NOTE | 2022-05-21 09:42 | RAD REPORT ---
EXAM DESCRIPTION: RAD - Chest Single View - 05/21/2022 9:32 am CLINICAL HISTORY: s/p HD cath placement Chest pain. COMPARISON: Chest Single View dated 05/20/2022; Chest Single View dated 05/18/2022; Chest Single View dated 04/30/2022; Chest Single View dated 11/06/2021 FINDINGS: Portable technique limits examination quality. Left-sided venous catheter has been placed. Tip is likely in the brachiocephalic vein. No postprocedu re pneumothorax.
[2022-05-21] MEDS ORDERED: ALBUMIN HUMAN 25% 50 ML IV SCH (10:00)
[2022-05-21] MEDS: MANNITOL 25% 12.5 GM/50 ML VIAL IV PRN (12:00)
[2022-05-21] MEDS ORDERED: ALBUTEROL 2.5 MG/3 ML NEB SOL NEB PRN (15:00)
[2022-05-21] MEDS: AZITHROMYCIN 250 MG TAB PO SCH (15:01)
[2022-05-21] MEDS: ROSUVASTATIN 10 MG TAB PO SCH (15:01)
[2022-05-21] MEDS: PREGABALIN 75 MG CAP PO SCH (15:02)
[2022-05-21] MEDS: allopurinoL 300 MG TAB PO SCH (15:02)
[2022-05-21] MEDS: PANTOPRAZOLE 40MG TABLET PO SCH (15:02)
[2022-05-21] MEDS: DULOXETINE 20 MG CAP PO SCH (15:02)
[2022-05-21] MEDS: ENOXAPARIN 30 MG/0.3 ML SQ SCH (15:04)
[2022-05-21] MEDS: DUTASTERIDE 0.5 MG GEL CAP PO SCH (15:17)
--- NOTE | 2022-05-21 15:33 | OP ---
Date of Procedure: 05/21/2022 Surgeon: Inder Siddiqui MD, Preoperative Diagnosis: Need for dialysis. Postoperative Diagnosis: Need for dialysis. Procedure Performed: Placement of left internal jugular tunneled hemodialysis catheter using ultraso und and fluoroscopic guidance with interpretation. Anesthesia: General endotracheal plus local. Estimated Blood Loss: Less than 2 cc. Specimen: None. Findings: Dark nonpulsatile blood return, catheter in the confluence of the SVC. Complications: None. Implant: A 24 cm curved HemoSplit catheter. Disposition: The patient was transferred to the recovery room in good condition. Procedure In Detail: After informed consent was obtained, the patient was brought to the operating r oom, prepped and draped in the usual sterile fashion after adequate anesthesia was achieved. Using u ltrasound guidance in the area of the left internal jugular vein, using ultrasound guidance, I cannul ated the left internal jugular vein with a microintroducer set. Microwire was advanced at this point . The catheter had some difficulty advancing across and would continue to curve upward into the cont ralateral internal jugular; however, using fluoroscopic guidance, I was able to manipulate it down to the confluence of the SVC and into the right atrium. At this point, I placed the introducer sheath, removed the microwire using Seldinger technique and advanced a standard wire at this point. Once ag ain, the wire required some manipulation to direct it into the right atrium, but ultimately was perfo rmed. At this point, I anesthetized the tract on the chest wall and found a 24 cm catheter to be lik evangelista adequate size with a curved 24 cm HemoSplit catheter was utilized. At this point, I brought the tunneling device onto the field and made a small andres incision in the chest wall. I then passed the tunneling device up to the insertion site without evidence of complication and oriented the catheter in appropriate location and position. I then performed sequential dilatation using Seldinger techniq ue and ultimately under fluoroscopic guidance introduced the introducer sheath. The wire remained in the right atrium at this point. I then removed the wire and removed the introducer sheath, inner ca nnula and advanced the catheter using fluoroscopic guidance, once again required some manipulation to direct it in the appropriate location, but ultimately made its way over to the superior vena cava. At this point, fluoroscopic guidance confirmed position. I then secured the catheter to the chest wa ll using 3-0 nylon sutures and tested the catheter at this point. Both ports gertrude back dark red nonp ulsatile blood and flushed quite easily at this point. I then placed heparin super flush 2 cc per po rt and ultimately the patient remained in steep Trendelenburg position. At this point, I then closed the insertion site using interrupted 3-0 nylon suture after appropriately cleansing the area and a s terile dressing placed over top. I then turned my attention to the right internal jugular, placed ca theter which had a kink in it. I then removed the sutures holding in place and removed it while the patient remained in steep Trendelenburg position. At this point, pressure was held at the insertion site and at the exit site. The patient was positioned head up position at this point. I irrigated t he exit site at this point and closed it with an interrupted 3-0 nylon suture and a sterile dressing placed over top. The patient tolerated the procedure well without evidence of complication and trans ferred to PACU in good condition. All counts were correct at the end of the case. DWAIN/WILLIAM Voice ID: [id number] Report ID: [id number]
--- NOTE | 2022-05-21 20:54 | P.PN ---
Subjective Date of Service: 05/21/22 Chief Complaint: SHORT OF BREATH Subjective: Improving MR ONEILL HAS SEVERE COPD, CKD 5 AND TODAY AFTER CATH FOR HD HE IS GETTING HD TODAY.. HE HAS NO CHEST PAIN. Review of Systems 10-point ROS is otherwise unremarkable General: Weakness Physical Examination - Vital Signs Temperature: 98.8 F Blood Pressure: 126/47 Pulse: 68 Respirations: 16 Pulse Ox (%): 93 - Physical Exam General: Mild distress, Moderate distress, Obese HEENT: Atraumatic, PERRLA, EOMI Neck: Supple, JVD not distended Respiratory: Diminished Cardiovascular: Regular rate/rhythm, Normal S1 S2 Gastrointestinal: Normal bowel sounds, No tenderness Musculoskeletal: No tenderness Integumentary: No rashes Neurological: Normal speech, Normal tone, Normal affect Lymphatics: No axilla or inguinal lymphadenopathy - Studies Medications List Reviewed: Yes Assessment And Plan - Current Problems (Diagnosis) (1) CKD (chronic kidney disease) stage 5, GFR less than 15 ml/min Current Visit: Yes Status: Chronic Plan: HE HAS WORSNED OVER TIME. LATELY HE SAW DR. HUA AND HE TOLD THEM THAT HE HAS PROGRESSED AND WILL NEED DIALYSIS BUT I AM NOT SURE WITH SEVERE COPD THAT IS REALLY POSSIBLE AND IF HE WILL COME OUT OF THIS ACUTE SITUATION. I TALKED TO HIS WFE ABOUT THIS. ON HD TODAY. HE IS STABLE. I AM NOT SURE HOW MUCH HE WILL IMPROVE PHYSICALLY BUT WILL CONSULT PT. (2) COPD exacerbation Current Visit: No Status: Acute Plan: I TALKED TO DELLA LAST NIGHT. PATIENT LOOKS DEHYDRATED CLINICALLY. I ASKD HIM TO STOP LASIX AND TREAT COPD WITH STEROIDS, JNEBS AND ABX. PROGNOSIS IS POOR. HE WANTS TO BE DNR IF TERMINAL AND IN MY OPINION HE IS CLOSE TO BEING TERMINAL. SEVERE COPD CLINICALLY IMPROVED. HEAVY SMOKER. (3) Hyperkalemia Current Visit: No Status: Acute Plan: [facility]. CKD 5 IS THE CAUSE PROGNOSIS POOR.
[2022-05-21] MEDS ORDERED: EPOETIN ALFA-EPBX 10,000 UNIT/ML VIAL ONE (21:12)
[2022-05-21] MEDS: EPOETIN ALFA 10,000 UNIT/ML VIAL SQ SCH ×2 (21:23→21:27)
[2022-05-22] MEDS: FUROSEMIDE 40 MG/4 ML VIAL IV SCH ×3 (00:50→16:51)
[2022-05-22 03:45] LABS: Absolute Lymphocytes (CBC) 0.6 K/uL (0.7-4.9); Hematocrit 22.7 % (39.6-49.0); Lymphocytes % 10.7 % (15.3-44.8); MPV 9.9 fL (7.6-11.3); RBC Red Blood Cell Count 2.36 M/uL (4.33-5.43)
[2022-05-22 04:05] LABS: AST/SGOT 12 U/L (15-37); Albumin 2.6 g/dL (3.4-5.0); Alkaline Phosphatase 85 U/L (45-117); BUN Blood Urea Nitrogen 83 mg/dL (7-18); Bicarbonate 25 mmol/L (21-32); Bilirubin Total 0.3 mg/dL (0.2-1.0); Glomerular Filtration Rate 15 ml/min (=/>90); Glucose Level 171 mg/dL (74-106); Phosphorus 3.6 mg/dL (2.5-4.9); Potassium 4.6 mmol/L (3.5-5.1); Protein, Total 5.9 g/dL (6.4-8.2); Sodium Level 142 mmol/L (136-145); Uric Acid 3.3 mg/dL (3.5-7.2)
[2022-05-22 04:15] LABS: ALT/SGPT < 10 U/L (16-61)
[2022-05-22] MEDS: INSULIN -REGULAR HUMAN 50 UNIT/0.5 ML ML SQ SCH ×4 (07:30→21:49)
[2022-05-22] MEDS: IPRATROPIUM BROM 0.5MG/2.5ML NEB SCH ×2 (08:35→20:00)
[2022-05-22] MEDS: ARFORMOTEROL TARTRATE 15 MCG/2 ML VIAL.NEB NEB SCH ×2 (08:35→20:00)
[2022-05-22] MEDS: HOME MED 1 EA UNK (Fluticasone/Umeclidin/Vilanter [Trelegy Ellipta 100-62.5-25] Blst.W.Dev IH SCH (09:00)
[2022-05-22] MEDS: CEFTRIAXONE 1,000 MG in NA CHLORIDE 0.9% 50 ML IVPB SCH (09:07)
[2022-05-22] MEDS: ENOXAPARIN 30 MG/0.3 ML SQ SCH (09:08)
[2022-05-22] MEDS: HYDRALAZINE HCL 25 MG TABLET PO SCH ×3 (09:08→21:49)
[2022-05-22] MEDS: DULOXETINE 20 MG CAP PO SCH (09:08)
[2022-05-22] MEDS: METOPROLOL XL 25 MG TAB PO SCH ×2 (09:09→21:48)
[2022-05-22] MEDS: TAMSULOSIN 0.4 MG SR CAP PO SCH ×2 (09:09→21:48)
[2022-05-22] MEDS: PANTOPRAZOLE 40MG TABLET PO SCH (09:09)
[2022-05-22] MEDS: NEPRO SHAKE 237 ML CAN PO SCH ×3 (09:09→21:56)
[2022-05-22] MEDS: DOCUSATE NA 100 MG CAP PO SCH ×2 (09:09→21:49)
[2022-05-22] MEDS: PREGABALIN 75 MG CAP PO SCH (09:09)
[2022-05-22] MEDS: AZITHROMYCIN 250 MG TAB PO SCH (09:09)
[2022-05-22] MEDS: AMLODIPINE 5 MG TAB PO SCH ×2 (09:14→21:48)
[2022-05-22 10:52] LABS: Urine Bacteria None Seen /HPF (<20); Urine Bilirubin NEGATIVE (Negative); Urine Blood Negative (Negative); Urine Clarity Clear (Clear); Urine Color Colorless (Yellow); Urine Glucose TRACE (Negative); Urine Protein 2+ (Negative); Urine RBC <5 /HPF (None Seen); Urine Urobilinogen Normal (Normal); Urine pH 6.5 (5.0-7.0)
[2022-05-22 11:00] LABS: UR PROTEIN 197.1 mg/dL (<11.9); Urine Protein/Creatinine Ratio 4.02 ratio (<0.15)
--- NOTE | 2022-05-22 12:00 | P.PN ---
Subjective Date of Service: 05/22/22 Chief Complaint: COPD Subjective: Improving (Improving s/p dialysis) Review of Systems General: Weakness Respiratory: Shortness of Breath Physical Examination - Vital Signs Temperature: 97.8 F Blood Pressure: 124/54 Pulse: 63 Respirations: 18 Pulse Ox (%): 92 - Physical Exam General: Alert, Oriented x3 Respiratory: Clear to auscultation bilaterally, Diminished - Studies Medications List Reviewed: Yes Assessment And Plan - Current Problems (Diagnosis) (1) COPD exacerbation Current Visit: No Status: Acute Plan: Patient has COPD exacerbation will continues to smoke dialysis initiated feeling better patient has oxygen at home/started on steroids can change management expert to p.o. 20 mg twice a day for a week and then taper patient has trilogy at home can DC Rocephin continue with Zithromax for anti-inflammatory purposes oxygenation satisfactory seen by nephrology
[2022-05-22] MEDS: allopurinoL 300 MG TAB PO SCH (12:13)
[2022-05-22] MEDS: METHYLPREDNISOLONE 40 MG INJ IV SCH ×2 (12:13→17:17)
[2022-05-22] MEDS: DUTASTERIDE 0.5 MG GEL CAP PO SCH (12:13)
[2022-05-22] MEDS: ROSUVASTATIN 10 MG TAB PO SCH (12:13)
[2022-05-22] MEDS: MANNITOL 25% 12.5 GM/50 ML VIAL IV PRN (13:45)
[2022-05-22 15:55] LABS: Hepatitis B surface AG Interp. Nonreactive (Nonreactive)
--- NOTE | 2022-05-22 17:25 | EKG ---
Test Date: 2022-05-18 Test Time: 16:14:36 Community Development Aide: HB MEASUREMENT RESULTS: Intervals: Rate: 61 AZ: 244 QRSD: 88 QT: 470 QTc: 473 [place]: P: 75 AZ: 244 QRS: 65 T: 20 INTERPRETIVE STATEMENTS: Sinus rhythm with 1st degree AV block Low voltage QRS Prolonged QT Abnormal ECG Compared to ECG 04/30/2022 17:57:14 First degree AV block now present Low QRS voltage now present Prolonged QT interval now present Atrial premature complex(es) no longer present Ventricular premature complex(es) no longer present ST (T wave) deviation no longer present Electronically Signed On 05-22-22 17:16:25 FACILITIES FLIGHT CHECK PILOT by Bryn Dacosta
--- NOTE | 2022-05-22 18:44 | PN ---
Subjective: Mr. Vaughn is doing a lot better. Denies chest pain or vomiting. He is breathing, whe ezing still, hypoxic at 88%. He has been heavy smoker, refused to quit smoking. He wants to smo grant. Now he is on dialysis for renal failure, which has been progressing over time. Physical Examination: Vital Signs: Stable, hypoxic as above, 88% on room air. Chest: Decreased breath sounds bilaterally. Wheezing bilaterally. Heart: Regular. Abdomen: No guarding. No rebound. No rigidity. Assessment And Plan: 1.End-stage renal failure, on hemodialysis currently. May go home tomorrow depending on the arrange ment for hemodialysis. 2.Chronic obstructive pulmonary disease, severe. Start Solu-Medrol IV. We will oil changer to pred nisone p.o. once improved. Continues to smoke. I do not expect him to recover from this condition a nd he is aware of this. His is aware of this. His family is aware of the seriousness of the si tuation. RVD/MODL Voice ID: [id number] Report ID: [id number]
--- NOTE | 2022-05-22 20:25 | P.PN ---
Date of Service: 05/22/22 Vital Signs Temp Pulse Resp BP Pulse Ox 97.8 F 63 18 124/54 L 92 05/22/22 12:00 05/22/22 12:00 05/22/22 12:00 05/22/22 12:00 05/22/22 12:00 Medications Albuterol Sulfate (Albuterol 2.5 Mg/3 Ml Neb Jessica) 2.5 mg NEB [id number] PRN PRN Reason: SHORTNESS OF BREATH Allopurinol (Allopurinol 300 Mg Tab) 300 mg PO NOON [facility] Last Admin: 05/22/22 12:13 Dose: 300 mg Amlodipine Besylate (Amlodipine 5 Mg Tab) 5 mg PO BID [facility] Last Admin: 05/22/22 09:14 Dose: 5 mg Arformoterol Tartrate (Arformoterol Tartrate 15 Mcg/2 Ml Vial.Neb) 15 mcg NEB BIDRESP [facility] Last Admin: 05/22/22 08:35 Dose: 15 mcg Azithromycin (Azithromycin 250 Mg Tab) 500 mg PO DAILY [facility] Last Admin: 05/22/22 09:09 Dose: 500 mg Docusate Sodium (Docusate Na 100 Mg Cap) 100 mg PO BID [facility] Last Admin: 05/22/22 09:09 Dose: 100 mg Duloxetine HCl (Duloxetine 20 Mg Cap) 60 mg PO DAILY [facility] Last Admin: 05/22/22 09:08 Dose: 60 mg Dutasteride (Dutasteride 0.5 Mg Gel Cap) 0.5 mg PO NOON [facility] Last Admin: 05/22/22 12:13 Dose: 0.5 mg Enoxaparin Sodium (Enoxaparin 30 Mg/0.3 Ml) 30 mg SQ DAILY [facility] Last Admin: 05/22/22 09:08 Dose: 30 mg Enteral Nutritional Formula (Nepro Shake 237 Ml Can) 237 ml PO TID [facility] Last Admin: 05/22/22 13:29 Dose: 237 ml Epoetin Heriberto (Epoetin Heriberto 10,000 Unit/Ml Vial) 10,000 unit SQ M,W,F [facility] Last Admin: 05/21/22 21:27 Dose: 10,000 unit Ergocalciferol (Drisdol (Vitamin D=Ergocalciferol) 45739 Unit Cap) 50,000 unit PO Q7D [facility] Last Admin: 05/21/22 09:00 Dose: Not Given Furosemide (Furosemide 40 Mg/4 Ml Vial) 40 mg IV Q8HR [facility] Last Admin: 05/22/22 16:51 Dose: Not Given Glucagon (Glucagon 1 Mg/Vial) 1 mg IM 1X PRN PRN Reason: HYPOGLYCEMIA Heparin Sodium (Porcine) (Heparin 1,000 Unit/Ml Vial) 4,000 unit IV EVERY HD PRN PRN Reason: DIALYSIS CATHETER CARE Last Admin: 05/22/22 16:18 Dose: 4,000 unit Home Med (Fluticasone/Umeclidin/Vilanter [Trelegy Ellipta 100-62.5-25]) 1 each IH DAILY [facility] Last Admin: 05/22/22 09:00 Dose: Not Given Hydralazine HCl (Hydralazine Hcl 25 Mg Tablet) 100 mg PO TID [facility] Last Admin: 05/22/22 13:28 Dose: Not Given Dextrose (Dextrose 10% Water Iv Soln.) 125 mls @ 0 mls/hr IV .Q0M PRN PRN Reason: HYPOGLYCEMIA Albumin Human (Albumin 25%) 50 mls @ 100 mls/hr IV EVERY HD [facility] Insulin Human Regular (Insulin -Regular Human 50 Unit/0.5 Ml Ml) 0 unit SQ ACHS [facility]; Protocol Last Admin: 05/22/22 16:30 Dose: Not Given Ipratropium [place] (Ipratropium Brom 0.5mg/2.5ml) 0.5 mg NEB [id number] PRN PRN Reason: SHORTNESS OF BREATH Ipratropium [place] (Ipratropium Brom 0.5mg/2.5ml) 0.5 mg NEB BIDRESP [facility] Last Admin: 05/22/22 08:35 Dose: 0.5 mg Mannitol (Mannitol 25% 12.5 Gm/50 Ml Vial) 12.5 gm IV EVERY HD PRN PRN Reason: BP SUPPORT Last Admin: 05/22/22 13:45 Dose: 12.5 gm Methylprednisolone Sodium Succinate (Methylprednisolone 40 Mg Inj) 40 mg IV Q6HR [facility] Last Admin: 05/22/22 17:17 Dose: 40 mg Metoprolol Succinate (Metoprolol Xl 25 Mg Tab) 25 mg PO BID [facility] Last Admin: 05/22/22 09:09 Dose: 25 mg Ondansetron HCl (Ondansetron 4 Mg/2 Ml Vial) 4 mg IV Q6H PRN PRN Reason: NAUSEA / VOMITING Pantoprazole Sodium (Pantoprazole 40mg Tablet) 40 mg PO DAILY [facility] Last Admin: 05/22/22 09:09 Dose: 40 mg Pregabalin (Pregabalin 75 Mg Cap) 75 mg PO DAILY [facility] Last Admin: 05/22/22 09:09 Dose: 75 mg Rosuvastatin Calcium (Rosuvastatin 10 Mg Tab) 20 mg PO NOON [facility] Last Admin: 05/22/22 12:13 Dose: 20 mg Tamsulosin HCl (Tamsulosin 0.4 Mg Sr Cap) 0.4 mg PO BID [facility] Last Admin: 05/22/22 09:09 Dose: 0.4 mg Microbiology Results 05/18/22 16:01 Blood - Blood Aerobic Blood Culture - Preliminary No growth in 24 hours. 05/18/22 16:01 Blood - Blood Anaerobic Blood Culture - Preliminary No growth in 24 hours. 05/18/22 15:43 Blood - Blood Aerobic Blood Culture - Preliminary No growth in 24 hours. 05/18/22 15:43 Blood - Blood Anaerobic Blood Culture - Preliminary No growth in 24 hours. Assessment/ Plan: Nephrology No dyspnea No chest pain Feeling better sp dialysis last night No acute events overnight Vitals, medications, blood work and imaging reviewed in the chart NAD. NCAT. MMM. Diminished breath sounds. RRR. Abd ND. LE Edema none. No rash. AAO. Normal speech. 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 The left kidney measures grossly 10.3 x 6.0 cm. Increased renal cortical echogenicity is present in both kidneys. Right renal cortex thickness within normal range. Left renal cortex also appears to be normal range though assessment is more limited due to the size and number of large left renal cysts. No hydronephrosis present. Patient has multiple bilateral renal cysts, larger on the left. Cysts measure up to 14 cm in size. No bladder wall thickening or mass. No intraluminal stone or mass. IMPRESSION: No hydronephrosis of either kidney. Multiple large renal cysts are present up to 14 cm in size. Bilateral medical renal disease evident. LEFT VENTRICULAR WALL MOTION: NORMAL. DOPPLER/COLOR FLOW: NORMAL. COMMENTS: NORMAL 2D ECHO WITH EXAM DESCRIPTION: RAD - Chest Single View - 05/18/2022 3:26 pm CLINICAL HISTORY: SOB COMPARISON: Chest Single View dated 04/30/2022; Chest Single View dated 11/06/2021; Chest Single View dated 06/24/2021; Chest Pa And Lat (2 Views) dated 07/23/2018; CHEST SINGLE VIEW dated 12/03/2013 FINDINGS: Lines: None. Lungs: Diffuse prominence of the pulmonary interstitium. Pleural: Moderate left effusion. Probable small right pleural effusion. Cardiac: Cardiomegaly. Mediastinum: Within normal limits. Bones: No acute fractures. Other: None IMPRESSION: Findings most consistent with interstitial pulmonary edema and small moderate left and small right pleural effusions. Pneumonia difficult to exclude radiographically. EXAM DESCRIPTION: RAD - Chest Single View - 05/20/2022 11:27 am CLINICAL HISTORY: as/p HD cath placement Chest pain. COMPARISON: Chest Single View dated 05/18/2022; Chest Single View dated 04/30/2022; Chest Single View dated 11/06/2021; Chest Single View dated 06/24/2021 FINDINGS: Right-sided dialysis catheter has tip in the SVC superiorly. No pneumothorax. Prominent kink in the tubing is seen near the clavicle. Findings discussed with Dr. Hughes.
[2022-05-23] MEDS: FUROSEMIDE 40 MG/4 ML VIAL IV SCH (00:51)
[2022-05-23] MEDS: METHYLPREDNISOLONE 40 MG INJ IV SCH ×4 (00:51→16:52)
[2022-05-23 04:12] LABS: Absolute Lymphocytes (CBC) 0.4 K/uL (0.7-4.9); Lymphocytes % 8.7 % (15.3-44.8); MCV 96.5 fL (80-100); MPV 10.1 fL (7.6-11.3); RBC Red Blood Cell Count 2.38 M/uL (4.33-5.43)
[2022-05-23 04:22] LABS: Potassium 4.8 mmol/L (3.5-5.1)
[2022-05-23] MEDS: INSULIN -REGULAR HUMAN 50 UNIT/0.5 ML ML SQ SCH ×4 (07:30→20:59)
[2022-05-23] MEDS: HYDRALAZINE HCL 25 MG TABLET PO SCH ×3 (09:00→21:10)
[2022-05-23] MEDS: AMLODIPINE 5 MG TAB PO SCH ×2 (09:00→21:10)
[2022-05-23] MEDS: METOPROLOL XL 25 MG TAB PO SCH ×2 (09:00→21:09)
[2022-05-23] MEDS: HOME MED 1 EA UNK (Fluticasone/Umeclidin/Vilanter [Trelegy Ellipta 100-62.5-25] Blst.W.Dev IH SCH (09:00)
[2022-05-23] MEDS: TAMSULOSIN 0.4 MG SR CAP PO SCH ×2 (10:44→21:10)
[2022-05-23] MEDS: PANTOPRAZOLE 40MG TABLET PO SCH (10:44)
[2022-05-23] MEDS: NEPRO SHAKE 237 ML CAN PO SCH ×3 (10:44→21:00)
[2022-05-23] MEDS: AZITHROMYCIN 250 MG TAB PO SCH (10:44)
--- NOTE | 2022-05-23 10:44 | P.PN ---
Nephrology note (S) Pt has tolerated initiation of dialysis, reports has been ambulatory, does get winded with more moderate exertion. (O) Vitals, medications, blood work and imaging reviewed in the chart Gen: NAD HEENT: Head atraumatic, sclera anicteric, NC Neck: Rt IJ TDC Resp: b/l air entry, exp wheezes CVS: RRR mostly Abd: Soft, obese, NT Ext: no sig edema Neuro: Awake, alert, non focal A/P: ESRD, newly declared 2nd to presumed chronic conditions with HTN/DM -Completing initiation of dialysis, TDC placed, Hep labs sent to [facility], pt can discharge tmrw with first OP HD Fri at 10:30 Hyperkalemia -Resolved post HD HTN with CKD -BP improving with HD, will monitor and can now employ EDMAR inhibitors if needed over the following weeks for BP remaining above goal Dyspnea 2nd to Pulmonary Edema, COPD -Stable, improved, volume overload improved with UF, diuresis. Pt non oliguric, so cont PO lasix Anemia in CKD -Continue Retacrit +/- IV iron at his OP unit per protocol Michael Thompson MD, DANIEL
[2022-05-23] MEDS: DOCUSATE NA 100 MG CAP PO SCH ×2 (10:45→21:09)
[2022-05-23] MEDS: DULOXETINE 20 MG CAP PO SCH (10:45)
[2022-05-23] MEDS: ENOXAPARIN 30 MG/0.3 ML SQ SCH (10:45)
[2022-05-23] MEDS: PREGABALIN 75 MG CAP PO SCH (10:45)
[2022-05-23] MEDS: DUTASTERIDE 0.5 MG GEL CAP PO SCH (11:04)
[2022-05-23] MEDS: ROSUVASTATIN 10 MG TAB PO SCH (11:04)
[2022-05-23] MEDS: IPRATROPIUM BROM 0.5MG/2.5ML NEB SCH ×2 (11:45→19:50)
[2022-05-23] MEDS: ARFORMOTEROL TARTRATE 15 MCG/2 ML VIAL.NEB NEB SCH ×2 (11:45→19:50)
[2022-05-23] MEDS ORDERED: allopurinoL 100 MG TAB PO SCH (12:00)
--- NOTE | 2022-05-23 22:19 | PN ---
Subjective: He is feeling lot better. Denies chest pain, nausea, vomiting. He still gets hypoxic, but better than before. He is sleeping better. Objective: Chest: Decreased breathing, bilateral wheezing. Heart: Regular. Abdomen: No guarding, no rebound, no rigidity. Vital Signs: Blood pressure 148/67. Assessment And Plan: 1.End-stage renal failure on dialysis. Hemodialysis is setup now. 2.Severe chronic obstructive pulmonary disease, heavy smoker. Oxygen dependent. Oxygen has improve d to 91% on room air now and I think he will be able to go home tomorrow with a tapering dose of ster oids. He knows the smoking is what is bringing him back to hospital, but he does not really care abo ut quitting at this point, it is too late for him. RVD/MODL Voice ID: [id number] Report ID: [id number]
[2022-05-24] MEDS: METHYLPREDNISOLONE 40 MG INJ IV SCH ×2 (01:24→05:48)
[2022-05-24] MEDS: INSULIN -REGULAR HUMAN 50 UNIT/0.5 ML ML SQ SCH (07:30)
[2022-05-24] MEDS: ARFORMOTEROL TARTRATE 15 MCG/2 ML VIAL.NEB NEB SCH (08:23)
[2022-05-24] MEDS: IPRATROPIUM BROM 0.5MG/2.5ML NEB SCH (08:23)
[2022-05-24 08:25] VITALS: BP 152/77; TEMP 97.7
[2022-05-24] MEDS: DOCUSATE NA 100 MG CAP PO SCH (08:43)
[2022-05-24] MEDS: TAMSULOSIN 0.4 MG SR CAP PO SCH (08:44)
[2022-05-24] MEDS: METOPROLOL XL 25 MG TAB PO SCH (08:45)
[2022-05-24] MEDS: AZITHROMYCIN 250 MG TAB PO SCH (08:45)
[2022-05-24] MEDS: PANTOPRAZOLE 40MG TABLET PO SCH (08:45)
[2022-05-24] MEDS: AMLODIPINE 5 MG TAB PO SCH (08:45)
[2022-05-24] MEDS: HYDRALAZINE HCL 25 MG TABLET PO SCH (08:45)
[2022-05-24] MEDS: ENOXAPARIN 30 MG/0.3 ML SQ SCH (08:46)
[2022-05-24] MEDS: PREGABALIN 75 MG CAP PO SCH (08:51)
[2022-05-24] MEDS ORDERED: FUROSEMIDE 40 MG TABLET PO SCH (09:00)
[2022-05-24] MEDS: HOME MED 1 EA UNK (Fluticasone/Umeclidin/Vilanter [Trelegy Ellipta 100-62.5-25] Blst.W.Dev IH SCH (09:00)
[2022-05-24] MEDS: DULOXETINE 20 MG CAP PO SCH (09:03)
[2022-05-24] MEDS: NEPRO SHAKE 237 ML CAN PO SCH (09:04)
[2022-05-24 09:45] VITALS: O2SAT 93
--- NOTE | 2022-05-24 20:45 | P.DS ---
Admission Date: 05/18/22 Discharge Date: 05/24/22 Disposition: ROUTINE DISCHARGE Discharge Condition: SERIOUS Reason for Admission: COPD - Problems (1) CKD (chronic kidney disease) stage 5, GFR less than 15 ml/min Status: Chronic (2) COPD exacerbation Status: Acute (3) Hyperkalemia Status: Acute Brief History of Present Illness: MR ONEILL IS A SEVERE COPD PATIENT WITH CKD 5 AND SEVERE ATHEROSCELROSIS FROM HEAVY SMOKING WHO CONTINUES TO SMOKE. HE WANTED TO ENJOY HIS LIFE AND NEVER WANTED TO QUIT SMOKING. THIS TIME HE IS IN MODERATE TO SEVERE DISTRESS WITH DYSPNEA. I SAW HIM IN ER ON DAY ONE. HE IS SHORT OF BREATH AT REST. HE DENIES CHEST PAIN. HE WAS GIVEN Z MOS[facility] BY DR HUA THIS WEEK. Hospital Course: ZURI COMES IN WITH SEVERE DYSPNEA, SEVERE HYPERKALEMIA AND CKD 5. HE WAS TREATED FOR COPD EXACERBATION AND ESRD. HE WENT THROUGH URGENT HEMODIALYSIS AND DID BETTER. IT TOOK A FEW DAYS FOR APPROVAL OF HD AND FEW DAYS TO IMPROVE COPD WITH IV STEROIDS. HE REFUSES TO QUIT SMOKING. HE ONCE AGAIN IS STABLIZED AFTER BEING IN CRITICAL CONDITION. HE IS STABLE AT DC AND WILL CONTINUE HD AND FU AT OFFICE. Vital Signs/Physical Exam: Temp Pulse Resp BP Pulse Ox 97.7 F 62 16 152/77 H 91 05/24/22 08:00 05/24/22 08:45 05/24/22 08:00 05/24/22 08:45 05/24/22 08:00 General: Oriented x3, Mild distress, Obese HEENT: Atraumatic, PERRLA, EOMI Neck: Supple, JVD not distended Respiratory: Clear to auscultation bilaterally, Normal air movement Cardiovascular: Regular rate/rhythm, Normal S1 S2 Gastrointestinal: Normal bowel sounds, No tenderness Musculoskeletal: No tenderness Integumentary: No rashes Neurological: Normal speech, Normal tone, Normal affect Lymphatics: No axilla or inguinal lymphadenopathy Laboratory Data at Discharge: WBC 4.10 K/uL (4.3-10.9) L 05/23/22 03:41 Hgb 7.6 g/dL (13.6-17.9) L 05/23/22 03:41 Hct 23.0 % (39.6-49.0) L 05/23/22 03:41 Plt Count 119 K/uL (152-406) L 05/23/22 03:41 PT 10.5 SECONDS (9.5-12.5) 05/20/22 06:35 INR 0.95 05/20/22 06:35 APTT 32.9 SECONDS (24.3-36.9) 05/20/22 06:35 Sodium 139 mmol/L (136-145) 05/23/22 03:41 Potassium 4.8 mmol/L (3.5-5.1) 05/23/22 03:41 BUN 72 mg/dL (7-18) H 05/23/22 03:41 Creatinine 3.09 mg/dL (0.70-1.30) H 05/23/22 03:41 Glucose 204 mg/dL (74-106) H 05/23/22 03:41 Uric Acid 3.3 mg/dL (3.5-7.2) L 05/22/22 02:51 Phosphorus 3.6 mg/dL (2.5-4.9) 05/22/22 02:51 Magnesium 2.3 mg/dL (1.6-2.4) 05/18/22 15:43 Total Bilirubin 0.3 mg/dL (0.2-1.0) 05/22/22 02:51 AST 12 U/L (15-37) L 05/22/22 02:51 ALT < 10 U/L (16-61) L 05/22/22 02:51 Alkaline Phosphatase 85 U/L (45-117) 05/22/22 02:51 Home Medications: Clopidogrel Bisulfate [Plavix*] 75 mg PO NOON 06/30/12 Tamsulosin [Flomax*] 0.4 mg PO BID 06/30/12 allopurinoL [Allopurinol] 300 mg PO NOON 11/30/13 Pantoprazole Sodium [Protonix] 1 tab PO DAILY 12/02/13 Rosuvastatin [Crestor*] 20 mg PO NOON 11/03/17 Albuterol Inhaler [Ventolin Inhaler*] 2 puff IH Q6H PRN 07/23/18 Duloxetine [Cymbalta *] 60 mg PO DAILY 07/23/18 Fluticasone/Umeclidin/Vilanter [Trelegy Ellipta 100-62.5-25] 1 each IH DAILY 04/17/19 Albuterol Neb [Proventil 0.083% Neb Soln] 1 unit IH Q6HP PRN 06/25/21 Arformoterol Tartrate [Brovana] 1 unit IH BID 06/25/21 Dutasteride [Avodart*] 1 tab PO NOON 06/25/21 Pregabalin [Lyrica] 150 mg PO BID 11/07/21 Amlodipine [Norvasc*] 5 mg PO BID 05/19/22 Hydralazine HCl 100 mg PO TID 05/19/22 Magnesium Oxide [Magnesium] 400 mg PO DAILY 05/19/22 Metoprolol Succinate [Toprol Xl*] 25 mg PO BID 05/19/22 Pantoprazole [Protonix Tab*] 40 mg PO DAILY tab 05/24/22 Followup: Julio Stratton MD [Primary Care Provider] - (follow up in one week, call to schedule appointment.)
== END 2022-05-24 11:32 | disposition home or self-care (01) | DRG 291 ==
LOC: ER 14:59 → ERHOLD 19:23 → 2ND 19:29
PROVIDERS: ADMIT Internal Medicine; ATTEND Internal Medicine
PROC: 5A09457 Assistance with Respiratory Ventilation, 24-96 Consecutive Hours, Continuous Positive Airway Pressure (ICD-10-PCS; principal; 2022-05-18)
PROC: 5A1D70Z Performance of Urinary Filtration, Intermittent, Less than 6 Hours Per Day (ICD-10-PCS; 2022-05-20)
PROC: 0JH63XZ Insertion of Tunneled Vascular Access Device into Chest Subcutaneous Tissue and Fascia, Percutaneous Approach (ICD-10-PCS; 2022-05-20)
PROC: 02HV33Z Insertion of Infusion Device into Superior Vena Cava, Percutaneous Approach (ICD-10-PCS; 2022-05-20)
DX: I13.2 Hypertensive heart and chronic kidney disease with heart failure and with stage 5 chronic kidney disease, or end stage renal disease (principal); G93.41 Metabolic encephalopathy; J96.21 Acute and chronic respiratory failure with hypoxia; I50.33 Acute on chronic diastolic (congestive) heart failure; N18.6 End stage renal disease; N17.9 Acute kidney failure, unspecified; J43.9 Emphysema, unspecified; E86.0 Dehydration; E87.5 Hyperkalemia; G47.33 Obstructive sleep apnea (adult) (pediatric); I70.90 Unspecified atherosclerosis; D63.1 Anemia in chronic kidney disease; E11.51 Type 2 diabetes mellitus with diabetic peripheral angiopathy without gangrene; E78.5 Hyperlipidemia, unspecified; M10.9 Gout, unspecified; E88.09 Other disorders of plasma-protein metabolism, not elsewhere classified; N40.1 Benign prostatic hyperplasia with lower urinary tract symptoms; I25.10 Atherosclerotic heart disease of native coronary artery without angina pectoris; F17.210 Nicotine dependence, cigarettes, uncomplicated; Z66 Do not resuscitate; Z95.5 Presence of coronary angioplasty implant and graft; Z88.8 Allergy status to other drugs, medicaments and biological substances; Z85.46 Personal history of malignant neoplasm of prostate; Z99.81 Dependence on supplemental oxygen; Z79.02 Long term (current) use of antithrombotics/antiplatelets; Z91.048 Other nonmedicinal substance allergy status; Z79.899 Other long term (current) drug therapy; Z20.822 Contact with and (suspected) exposure to COVID-19
CPT/HCPCS: 0240U; 36415; 71045; 76000; 80048; 80053; 81001; 82570; 82805; 82947; 83036; 83540; 83605; 83735; 83880; 84100; 84145; 84156; 84466; 84484; 84550; 85025; 85610; 85730; 86038; 86160; 86704; 86706; 87040; 87070; 87205; 87340; 90935; 93005; 94640; 94660; 94760; 96361; 96374; 96375; 97116; 97161; 97530; 99285; A4216; C1752; J0610; J0690; J1100; J1644; J1650; J1815; J1940; J2001; J2150; J2250; J2370; J2405; J2704; J2920; J2930; J3010; J7030; J7040; J7605; J7613; J7644; Q5106

== ENCOUNTER 2022-08-30 10:56 | Day surgery (SDC) | payer OTHER ==
[2022-08-30 08:48] LABS: Potassium 4.3 mEq/L (3.5-5.1)
[2022-08-30] MEDS ORDERED: NA CHLORIDE 0.9% 500 ML ONE (11:15)
[2022-08-30 11:35] VITALS: TEMP 97
[2022-08-30] MEDS: CEFAZOLIN SODIUM 1 GM/VIAL ONE ×2 (12:00→12:49)
[2022-08-30] MEDS: LIDOCAINE HCL/EPINEPHRINE 20 ML MDV ONE ×2 (12:00→13:10)
[2022-08-30] MEDS ORDERED: propofoL 200 MG/20 ML VIAL IV ONE (12:58)
[2022-08-30] MEDS ORDERED: FENTANYL CITR 100 MCG/2 ML ONE (12:58)
[2022-08-30] MEDS ORDERED: LIDOCAINE 2% MPF 5 ML VIAL ONE (12:59)
[2022-08-30] MEDS ORDERED: MIDAZOLAM HCL 2 MG/2 ML INJ ONE (12:59)
--- NOTE | 2022-08-30 13:24 | P.OP ---
Preoperative diagnosis: Attention to HD catheter Postoperative diagnosis: Attention to HD catheter Primary procedure: Removal of RIGHT IJ tunnelled Hemodialysis catheter Anesthesia: MAC + Local Estimated blood loss: <5cc Specimen: catheter for id only Findings: no signs of infection Complications: None Transferred to: Recovery Room Condition: Good
[2022-08-30] MEDS ORDERED: ONDANSETRON 4 MG/2 ML VIAL ONE (13:25)
[2022-08-30 13:46] VITALS: BP 134/56; O2SAT 97
--- NOTE | 2022-08-30 14:53 | OP ---
Date of Procedure: 08/28/2022 Surgeon: Inder Siddiqui MD, Preoperative Diagnosis: Tension on hemodialysis catheter. Postoperative Diagnosis: Tension on hemodialysis catheter. Procedure Performed: Removal of right tunneled internal jugular hemodialysis catheter. Anesthesia: MAC plus local with 0.25% Marcaine. Estimated Blood Loss: Less than 5 cc. Specimen: Catheter for ID only. Findings: No signs of infection. Complications: None. Disposition: The patient was transferred to the recovery room in good condition. Procedure In Detail: After informed consent was obtained, the patient was brought to the operating r oom, prepped and draped in the usual sterile fashion after adequate anesthesia was achieved. I anest hetized the area of the right internal jugular catheter exit site on the right chest wall at the infr aclavicular position down to subcutaneous tissues. I then dilated up the tract and made a small andres incision overlying the skin to allow for dilation of the exit trach. I circumferentially dissected around the cuff at this point and removed all tissue, which was attached to the cuff at this point al lowing for the catheter to be mobilized. I then removed the catheter after placing the patient in st eep Trendelenburg position and held a pressure, and the patient was positioned head up position after held pressure for approximately 5 minutes. At this point, I irrigated the chest wall site while wild ntaining pressure at the insertion site and after irrigating the area appropriately and drying, and I closed the exit site with interrupted 2-0 nylon suture and sterile dressing placed over top. The pa tient tolerated the procedure well without evidence of complication and transferred to PACU in good c ondition. All counts were correct at the end of the case. DWAIN/MODL Voice ID: [id number] Report ID: [id number]
== END 2022-08-30 14:10 | disposition home or self-care (01) ==
LOC: OR 10:56
PROVIDERS: ATTEND Surgery
PROC: 05PY03Z Removal of Infusion Device from Upper Vein, Open Approach (ICD-10-PCS; principal; 2022-08-30 14:15)
DX: Z45.2 Encounter for adjustment and management of vascular access device (principal); I12.0 Hypertensive chronic kidney disease with stage 5 chronic kidney disease or end stage renal disease; N18.6 End stage renal disease; Z99.2 Dependence on renal dialysis; G47.33 Obstructive sleep apnea (adult) (pediatric); J44.9 Chronic obstructive pulmonary disease, unspecified; E78.00 Pure hypercholesterolemia, unspecified; E66.9 Obesity, unspecified; Z68.33 Body mass index [BMI] 33.0-33.9, adult; Z95.828 Presence of other vascular implants and grafts; Z95.5 Presence of coronary angioplasty implant and graft; Z79.899 Other long term (current) drug therapy; Z88.8 Allergy status to other drugs, medicaments and biological substances; Z82.49 Family history of ischemic heart disease and other diseases of the circulatory system
CPT/HCPCS: 80048; 36415; 88300; 36589; J2250; J3010; J2405; J7040; J0690; J2001; J2704

== ENCOUNTER 2023-01-11 10:02 | Inpatient (IN) | payer OTHER ==
--- OUTSIDE RECORDS SUMMARY | 2023-01-11 10:11 | XMS REPORT | Continuity of Care Document ---
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 tablet in the evening. allopurinoL 2022-0 Yes 300mg Take 1 Uni vers 300 mg 4-04 tablet by ity of tablet 17:58: mouth in [place] 16 the Medical morning. Branch arformotero 2022-0 Yes 15ug Inhale 2 Un elizabeth L 15 mcg/2 4-04 mL 2 (two) ity of mL 17:58: times [place] nebulizer 16 daily as Medica l solution needed. Branch clopidogreL 2022-0 Yes 75mg Take 1 [facility] ers 75 mg 4-04 tablet by ity of tablet 17:58: mouth in [place] 16 the Medical morning. Branch dutasteride 0 Yes .5mg Take 1 [facility] ers 0.5 mg 4-04 capsule by ity of capsule 17:58: mouth in [place] 16 the Medical morning. Branch rosuvastati 0 Yes 20mg Take 1 [facility] ers n 20 mg 4-04 tablet by ity of tablet 17:58: mouth in [place] 16 the Medical morning. Branch omega 0 Yes 360mg Take 360 [facility] 3-dha-epa-f 4-04 mg by ity of deejay oil 17:58: mouth in [place] 360-1,200 16 the Medical mg CpDR morning Branch and 360 mg in the evening. aspirin 81 2022-0 Yes 81mg Take 1 [facility] rs mg EC 4-04 tablet by ity of tablet 17:58: mouth in [place] 16 the Medical morning. Branch Will start when stops plavix on 07/06/22 albuterol 2022-0 Yes 1.25mg Use 3 mL Un elizabeth 1.25 mg/3 4-04 as ity of mL 17:58: directed [place] nebulizer 16 every 6 Medical solution (six) Branch hours as needed for Wheezing. metoprolol 2022-0 Yes Take by [facility] ers succinate 4-04 mouth. ity of 100 mg CSpX 17:58: [place] 16 Medical Branch Vitamin E 2022-0 Yes Take by [facility] rs 100 4-04 mouth. ity of unit/0.25 17:58: [place] mL Drop 16 Medical Branch ipratropium 2022-0 Yes 2{puff} Inhale 2 [facility] /albuterol 4-04 Puffs ity of sulfate 17:58: every 6 [place] (COMBIVENT 16 (six) Medical INHALE) hours as Branch needed for Wheezing. Fenofibric 2022-0 Yes 135mg Take 1 [facility] ers Acid 135 mg 4-04 capsule by it y of capsule 17:58: mouth in [place] 16 the Medical morning. Branch metoprolol 2022-0 Yes 25mg Take 1 [facility] rs tartrate 25 4-04 tablet by ity of mg tablet 17:58: mouth [place] 16 the Medical morning Branch and 1 tablet in the evening. allopurinoL 2022-0 Yes 300mg Take 1 Uni vers 300 mg 4-04 tablet by ity of tablet 17:58: mouth in [place] 16 the Medical morning. Branch arformotero 2022-0 Yes 15ug Inhale 2 Un elizabeth L 15 mcg/2 4-04 mL 2 (two) ity of mL 17:58: times [place] nebulizer 16 daily as Medica l solution needed. Branch clopidogreL 2022-0 Yes 75mg Take 1 [facility] ers 75 mg 4-04 tablet by ity of tablet 17:58: mouth in [place] 16 the Medical morning. Branch dutasteride 2022-0 Yes .5mg Take 1 [facility] ers 0.5 mg 4-04 capsule by ity of capsule 17:58: mouth in [place] 16 the Medical morning. Branch rosuvastati 2022-0 Yes 20mg Take 1 [facility] ers n 20 mg 4-04 tablet by ity of tablet 17:58: mouth in [place] 16 the Medical morning. Branch omega 2022-0 Yes 360mg Take 360 [facility] 3-dha-epa-f 4-04 mg by ity of deejay oil 17:58: mouth in [place] 360-1,200 16 the Medical mg CpDR morning Branch and 360 mg in the evening. aspirin 81 3-0 Yes 81mg Take 1 [facility] rs mg EC 4-04 tablet by ity of tablet 17:58: mouth in [place] 16 the Medical morning. Branch Will start when stops plavix on 07/06/22 albuterol 3-0 Yes 1.25mg Use 3 mL Un elizabeth 1.25 mg/3 4-04 as ity of mL 17:58: directed [place] nebulizer 16 every 6 Medical solution (six) Branch hours as needed for Wheezing. metoprolol 2022-0 Yes Take by [facility] ers succinate 4-04 mouth. ity of 100 mg CSpX 17:58: [place] 16 Medical Branch Vitamin E 2022-0 Yes Take by Un[facility] rs 100 4-04 mouth. ity of unit/0.25 17:58: [place] mL Drop 16 Medical Branch ipratropium 2022-0 Yes 2{puff} Inhale 2 [facility] /albuterol 4-04 Puffs ity of sulfate 17:58: every 6 [place] (COMBIVENT 16 (six) Medical INHALE) hours as Branch needed for Wheezing. Fenofibric 2022-0 Yes 135mg Take 1 [facility] ers Acid 135 mg 4-04 capsule by it y of capsule 17:58: mouth in [place] 16 the Medical morning. Branch metoprolol 2022-0 Yes 25mg Take 1 Unive rs tartrate 25 4-04 tablet by ity of mg tablet 17:58: mouth in [facility] 16 the Medical morning Branch and 1 tablet in the evening. allopurinoL 2022-0 Yes 300mg Take 1 Uni vers 300 mg 4-04 tablet by ity of tablet 17:58: mouth in [place] 16 the Medical morning. Branch arformotero 2022-0 Yes 15ug Inhale 2 Un elizabeth L 15 mcg/2 4-04 mL 2 (two) ity of mL 17:58: times [place] nebulizer 16 daily as Medica l solution needed. Branch clopidogreL 2022-0 Yes 75mg Take 1 Univ ers 75 mg 4-04 tablet by ity of tablet 17:58: mouth in [place] 16 the Medical morning. Branch dutasteride 2022-0 Yes .5mg Take 1 [facility] ers 0.5 mg 4-04 capsule by ity of capsule 17:58: mouth in [place] 16 the Medical morning. Branch rosuvastati 2022-0 Yes 20mg Take 1 Univ ers n 20 mg 4-04 tablet by ity of tablet 17:58: mouth in [place] 16 the Medical morning. Branch omega 2022-0 Yes 360mg Take 360 [facility] 3-dha-epa-f 4-04 mg by ity of deejay oil 17:58: mouth in [place] 360-1,200 16 the Medical mg CpDR morning Branch and 360 mg in the evening. aspirin 81 2022-0 Yes 81mg Take 1 [facility]ive rs mg EC 4-04 tablet by ity of tablet 17:58: mouth in [place] 16 the Medical morning. Branch Will start when stops plavix on 07/06/22 albuterol 2022-0 Yes 1.25mg Use 3 mL Un elizabeth 1.25 mg/3 4-04 as ity of mL 17:58: directed [place] nebulizer 16 every 6 Medical solution (six) Branch hours as needed for Wheezing. metoprolol 2022-0 Yes Take by Univ ers succinate 4-04 mouth. ity of 100 mg CSpX 17:58: [place] 16 Medical Branch Vitamin E 2022-0 Yes Take by Unive rs 100 4-04 mouth. ity of unit/0.25 17:58: [place] mL Drop 16 Medical Branch ipratropium 2022-0 Yes 2{puff} Inhale 2 [facility] /albuterol 4-04 Puffs ity of sulfate 17:58: every 6 [place] (COMBIVENT 16 (six) Medical INHALE) hours as Branch needed for Wheezing. Fenofibric 2022-0 Yes 135mg Take 1 Univ ers Acid 135 mg 4-04 capsule by it y of capsule 17:58: mouth in [place] [address] the Medical morning. Branch metoprolol 2022-0 Yes 25mg Take 1 Unive rs tartrate 25 4-04 tablet by ity of mg tablet 17:58: mouth in [place] [address] the Medical morning Branch and 1 tablet in the evening. allopurinoL 2022-0 Yes 300mg Take 1 Uni vers 300 mg 4-04 tablet by ity of tablet 17:58: mouth in [place] [address] the Medical morning. Branch arformotero 2022-0 Yes 15ug Inhale 2 Un elizabeth L 15 mcg/2 4-04 mL 2 (two) ity of mL 17:58: times [place] nebulizer 16 daily as Medica l solution needed. Branch clopidogreL 2022-0 Yes 75mg Take 1 Univ ers 75 mg 4-04 tablet by ity of tablet 17:58: mouth in [place] [address] the Medical morning. Branch dutasteride 2022-0 Yes .5mg Take 1 Univ ers 0.5 mg 4-04 capsule by ity of capsule 17:58: mouth in [place] [address] the Medical morning. Branch rosuvastati 2022-0 Yes 20mg Take 1 Univ ers n 20 mg 4-04 tablet by ity of tablet 17:58: mouth in [place] [address] the Medical morning. Branch omega 2023-0 Yes 360mg Take 360 [facility] 3-dha-epa-f 4-04 mg by ity of deejay oil 17:58: mouth in [place] 360-1,200 16 the Medical mg CpDR morning Branch and 360 mg in the evening. aspirin 81 2022-0 Yes 81mg Take 1 Unive rs mg EC 4-04 tablet by ity of tablet 17:58: mouth in [place] 16 the Medical morning. Branch Will start when stops plavix on 07/06/22 albuterol 2022-0 Yes 1.25mg Use 3 mL Un elizabeth 1.25 mg/3 4-04 as ity of mL 17:58: directed [place] nebulizer 16 every 6 Medical solution (six) Branch hours as needed for Wheezing. metoprolol 2022-0 Yes Take by Univ ers succinate 4-04 mouth. ity of 100 mg CSpX 17:58: [place] 16 Medical Branch Vitamin E 2022-0 Yes Take by Unive rs 100 4-04 mouth. ity of unit/0.25 17:58: [place] mL Drop 16 Medical Branch ipratropium 2022-0 Yes 2{puff} Inhale 2 [facility] /albuterol 4-04 Puffs ity of sulfate 17:58: every 6 [place] (COMBIVENT 16 (six) Medical INHALE) hours as Branch needed for Wheezing. Fenofibric 2022-0 Yes 135mg Take 1 Univ ers Acid 135 mg 4-04 capsule by it y of capsule 17:58: mouth in [place] 16 the Medical morning. Branch metoprolol 2022-0 Yes 25mg Take 1 Unive rs tartrate 25 4-04 tablet by ity of mg tablet 17:58: mouth in [facility] 16 the Medical morning Branch and 1 tablet in the evening. allopurinoL 2022-0 Yes 300mg Take 1 Uni vers 300 mg 4-04 tablet by ity of tablet 17:58: mouth in [place] 16 the Medical morning. Branch arformotero 2022-0 Yes 15ug Inhale 2 Un elizabeth L 15 mcg/2 4-04 mL 2 (two) ity of mL 17:58: times [place] nebulizer 16 daily as Medica l solution needed. Branch clopidogreL 2022-0 Yes 75mg Take 1 Univ ers 75 mg 4-04 tablet by ity of tablet 17:58: mouth in [place] 16 the Medical morning. Branch dutasteride 2022-0 Yes .5mg Take 1 Univ ers 0.5 mg 4-04 capsule by ity of capsule 17:58: mouth in [place] 16 the Medical morning. Branch rosuvastati 2022-0 Yes 20mg Take 1 Univ ers n 20 mg 4-04 tablet by ity of tablet 17:58: mouth in [place] 16 the Medical morning. Branch omega 2022-0 Yes 360mg Take 360 [facility] 3-dha-epa-f 4-04 mg by ity of deejay oil 17:58: mouth in [place] 360-1,200 16 the Medical mg CpDR morning Branch and 360 mg in the evening. aspirin 81 2022-0 Yes 81mg Take 1 Unive rs mg EC 4-04 tablet by ity of tablet 17:58: mouth in [place] 16 the Medical morning. Branch Will start when stops plavix on 07/06/22 albuterol 2022-0 Yes 1.25mg Use 3 mL Un elizabeth 1.25 mg/3 4-04 as ity of mL 17:58: directed [place] nebulizer 16 every 6 Medical solution (six) Branch hours as needed for Wheezing. metoprolol 2022-0 Yes Take by Univ ers succinate 4-04 mouth. ity of 100 mg CSpX 17:58: [place] 16 Medical Branch Vitamin E 0 Yes Take by Unive rs 100 4-04 mouth. ity of unit/0.25 17:58: [place] mL Drop 16 Medical Branch ipratropium 2022-0 Yes 2{puff} Inhale 2 [facility] /albuterol 4-04 Puffs ity of sulfate 17:58: every 6 [place] (COMBIVENT 16 (six) Medical INHALE) hours as Branch needed for Wheezing. Fenofibric 2022-0 Yes 135mg Take 1 Univ ers Acid 135 mg 4-04 capsule by it y of capsule 17:58: mouth in [place] 16 the Medical morning. Branch metoprolol 2022-0 Yes 25mg Take 1 Unive rs tartrate 25 4-04 tablet by ity of mg tablet 17:58: mouth in [facility] 16 the Medical morning Branch and 1 tablet in the evening. allopurinoL 2022-0 Yes 300mg Take 1 Uni vers 300 mg 4-04 tablet by ity of tablet 17:58: mouth in [place] 16 the Medical morning. Branch arformotero 2022-0 Yes 15ug Inhale 2 Un elizabeth L 15 mcg/2 4-04 mL 2 (two) ity of mL 17:58: times [place] nebulizer 16 daily as Medica l solution needed. Branch clopidogreL 2022-0 Yes 75mg Take 1 Univ ers 75 mg 4-04 tablet by ity of tablet 17:58: mouth in [place] 16 the Medical morning. Branch dutasteride 2022-0 Yes .5mg Take 1 Univ ers 0.5 mg 4-04 capsule by ity of capsule 17:58: mouth in [place] 16 the Medical morning. Branch rosuvastati 2022-0 Yes 20mg Take 1 Univ ers n 20 mg 4-04 tablet by ity of tablet 17:58: mouth in [place] 16 the Medical morning. Branch omega 2022-0 Yes 360mg Take 360 [facility] 3-dha-epa-f 4-04 mg by ity of deejay oil 17:58: mouth in [place] 360-1,200 16 the Medical mg CpDR morning Branch and 360 mg in the evening. aspirin 81 2022-0 Yes 81mg Take 1 Unive rs mg EC 4-04 tablet by ity of tablet 17:58: mouth in [place] 16 the Medical morning. Branch Will start when stops plavix on 07/06/22 albuterol 2022-0 Yes 1.25mg Use 3 mL Un elizabeth 1.25 mg/3 4-04 as ity of mL 17:58: directed [place] nebulizer 16 every 6 Medical solution (six) Branch hours as needed for Wheezing. metoprolol 2022-0 Yes Take by Univ ers succinate 4-04 mouth. ity of 100 mg CSpX 17:58: [place] 16 Medical Branch Vitamin E 2022-0 Yes Take by Unive rs 100 4-04 mouth. ity of unit/0.25 17:58: [place] mL Drop 16 Medical Branch ipratropium 2022-0 Yes 2{puff} Inhale 2 Univers /albuterol 4-04 Puffs ity of sulfate 17:58: every 6 [place] (COMBIVENT 16 (six) Medical INHALE) hours as Branch needed for Wheezing. Fenofibric 2022-0 Yes 135mg Take 1 Univ ers Acid 135 mg 4-04 capsule by it y of capsule 17:58: mouth in [place] 16 the Medical morning. Branch metoprolol 2022-0 Yes 25mg Take 1 Unive rs tartrate 25 4-04 tablet by ity of mg tablet 17:58: mouth in [facility] 16 the Medical morning Branch and 1 tablet in the evening. allopurinoL 2022-0 Yes 300mg Take 1 Uni vers 300 mg 4-04 tablet by ity of tablet 17:58: mouth in [place] 16 the Medical morning. Branch arformotero 2022-0 Yes 15ug Inhale 2 Un elizabeth L 15 mcg/2 4-04 mL 2 (two) ity of mL 17:58: times [place] nebulizer 16 daily as Medica l solution needed. Branch clopidogreL 2022-0 Yes 75mg Take 1 Univ ers 75 mg 4-04 tablet by ity of tablet 17:58: mouth in [place] 16 the Medical morning. Branch dutasteride 2022-0 Yes .5mg Take 1 Univ ers 0.5 mg 4-04 capsule by ity of capsule 17:58: mouth in [place] 16 the Medical morning. Branch rosuvastati 2022-0 Yes 20mg Take 1 Univ ers n 20 mg 4-04 tablet by ity of tablet 17:58: mouth in [place] 16 the Medical morning. Branch omega 2022-0 Yes 360mg Take 360 [facility] 3-dha-epa-f 4-04 mg by ity of deejay oil 17:58: mouth in [place] 360-1,200 16 the Medical mg CpDR morning Branch and 360 mg in the evening. aspirin 81 2022-0 Yes 81mg Take 1 Unive rs mg EC 4-04 tablet by ity of tablet 17:58: mouth in [place] 16 the Medical morning. Branch Will start when stops plavix on 07/06/22 albuterol 2022-0 Yes 1.25mg Use 3 mL Un elizabeth 1.25 mg/3 4-04 as ity of mL 17:58: directed [place] nebulizer 16 every 6 Medical solution (six) Branch hours as needed for Wheezing. metoprolol 2022-0 Yes Take by Univ ers succinate 4-04 mouth. ity of 100 mg CSpX 17:58: [place] 16 Medical Branch Vitamin E 2022-0 Yes Take by Unive rs 100 4-04 mouth. ity of unit/0.25 17:58: [place] mL Drop 16 Medical Branch ipratropium 2022-0 Yes 2{puff} Inhale 2 Univers /albuterol 4-04 Puffs ity of sulfate 17:58: every 6 [place] (COMBIVENT 16 (six) Medical INHALE) hours as Branch needed for Wheezing. Fenofibric 2022-0 Yes 135mg Take 1 Univ ers Acid 135 mg 4-04 capsule by it y of capsule 17:58: mouth in [place] 16 the Medical morning. Branch metoprolol 2022-0 Yes 25mg Take 1 Unive rs tartrate 25 4-04 tablet by ity of mg tablet 17:58: mouth in [facility] 16 the Medical morning Branch and 1 tablet in the evening. allopurinoL 2022-0 Yes 300mg Take 1 Uni vers 300 mg 4-04 tablet by ity of tablet 17:58: mouth in [place] 16 the Medical morning. Branch arformotero 2022-0 Yes 15ug Inhale 2 Un elizabeth L 15 mcg/2 4-04 mL 2 (two) ity of mL 17:58: times [place] nebulizer 16 daily as Medica l solution needed. Branch clopidogreL 2022-0 Yes 75mg Take 1 Univ ers 75 mg 4-04 tablet by ity of tablet 17:58: mouth in [place] 16 the Medical morning. Branch dutasteride 2022-0 Yes .5mg Take 1 Univ ers 0.5 mg 4-04 capsule by ity of capsule 17:58: mouth in [place] 16 the Medical morning. Branch rosuvastati 2022-0 Yes 20mg Take 1 Univ ers n 20 mg 4-04 tablet by ity of tablet 17:58: mouth in [place] 16 the Medical morning. Branch omega 2022-0 Yes 360mg Take 360 [facility] 3-dha-epa-f 4-04 mg by ity of deejay oil 17:58: mouth in [place] 360-1,200 16 the Medical mg CpDR morning Branch and 360 mg in the evening. aspirin 81 2022-0 Yes 81mg Take 1 Unive rs mg EC 4-04 tablet by ity of tablet 17:58: mouth in [place] 16 the Medical morning. Branch Will start when stops plavix on 07/06/22 albuterol 2022-0 Yes 1.25mg Use 3 mL Un elizabeth 1.25 mg/3 4-04 as ity of mL 17:58: directed [place] nebulizer 16 every 6 Medical solution (six) Branch hours as needed for Wheezing. metoprolol 2022-0 Yes Take by Univ ers succinate 4-04 mouth. ity of 100 mg CSpX 17:58: [place] 16 Medical Branch Vitamin E 2022-0 Yes Take by Unive rs 100 4-04 mouth. ity of unit/0.25 17:58: [place] mL Drop 16 Medical Branch ipratropium 2022-0 Yes 2{puff} Inhale 2 Univers /albuterol 4-04 Puffs ity of sulfate 17:58: every 6 [place] (COMBIVENT 16 (six) Medical INHALE) hours as Branch needed for Wheezing. Fenofibric 2022-0 Yes 135mg Take 1 Univ ers Acid 135 mg 4-04 capsule by it y of capsule 17:58: mouth in [place] 16 the Medical morning. Branch metoprolol 2022-0 Yes 25mg Take 1 Unive rs tartrate 25 4-04 tablet by ity of mg tablet 17:58: mouth in [facility] 16 the Medical morning Branch and 1 tablet in the evening. allopurinoL 2022-0 Yes 300mg Take 1 Uni vers 300 mg 4-04 tablet by ity of tablet 17:58: mouth in [place] 16 the Medical morning. Branch arformotero 2022-0 Yes 15ug Inhale 2 Un elizabeth L 15 mcg/2 4-04 mL 2 (two) ity of mL 17:58: times [place] nebulizer 16 daily as Medica l solution needed. Branch clopidogreL 2022-0 Yes 75mg Take 1 Univ ers 75 mg 4-04 tablet by ity of tablet 17:58: mouth in [place] 16 the Medical morning. Branch dutasteride 2022-0 Yes .5mg Take 1 Univ ers 0.5 mg 4-04 capsule by ity of capsule 17:58: mouth in [place] 16 the Medical morning. Branch rosuvastati 2022-0 Yes 20mg Take 1 Univ ers n 20 mg 4-04 tablet by ity of tablet 17:58: mouth in [place] 16 the Medical morning. Branch omega 2022-0 Yes 360mg Take 360 [facility] 3-dha-epa-f 4-04 mg by ity of deejay oil 17:58: mouth in [place] 360-1,200 16 the Medical mg CpDR morning Branch and 360 mg in the evening. aspirin 81 3-0 Yes 81mg Take 1 Unive rs mg EC 4-04 tablet by ity of tablet 17:58: mouth in [place] 16 the Medical morning. Branch Will start when stops plavix on 07/06/22 NaCl 0.9% 2022-0 Yes 1000mL at 42 Unive rs (NS) IV 4-04 mL/hr, IV ity of infusion 16:15: [place] 1,000 mL 00 CONTINUOUS Medic al , Starting Branch on Sat07/10/22 at 1115, Until Discontinu ed, Routine, DSU Pre-op NaCl 0.9% 2022-0 2022- No 1000mL at 42 Univ ers (NS) IV 4-04 04-05 mL/hr, IV ity of infusion 16:15: 00:58 Infusion, [place] 1,000 mL 00 :17 CONTINUOUS Medic al , Starting Branch on Sat07/10/22 at 1115, Until Sat07/10/22 at 1958, Routine, DSU Pre-op traMADoL 50 2022-0 2022- No 4647 50mg Take 1 Uni vers mg tablet 07-10-12 tablet by ity of 00:00: 04:59 mouth [place] 00 :00 every 8 Medical (eight) Branch hours as needed for Pain (scale 4-6) for up to 7 days. Indication s: acute pain traMADoL 50 2022-0 3- No 4647 50mg Take 1 Uni vers mg tablet 07-10-12 tablet by ity of 00:00: 04:59 mouth [place] 00 :00 every 8 Medical (eight) Branch hours as needed for Pain (scale 4-6) for up to 7 days. Indication s: acute pain traMADoL 50 2022-0 3- No 4647 50mg Take 1 Uni vers mg tablet 07-10-12 tablet by ity of 00:00: 04:59 mouth [place] 00 :00 every 8 Medical (eight) Branch hours as needed for Pain (scale 4-6) for up to 7 days. Indication s: acute pain traMADoL 50 2022-0 2023- No 4647 50mg Take 1 Uni vers mg tablet -07 10-12 tablet by ity of 00:00: 04:59 mouth [place] 00 :00 every 8 Medical (eight) Branch hours as needed for Pain (scale 4-6) for up to 7 days. Indication s: acute pain traMADoL 50 2022-0 2023- No 4647 50mg Take 1 Uni vers mg tablet -07 10-12 tablet by ity of 00:00: 04:59 mouth [place] 00 :00 every 8 Medical (eight) Branch hours as needed for Pain (scale 4-6) for up to 7 days. Indication s: acute pain arformotero 2022-0 Yes 15ug Inhale 2 Un elizabeth L 15 mcg/2 3-30 mL 2 (two) ity of mL 11:17: times [place] nebulizer 53 daily as Medica l solution needed. Branch aspirin 81 2022-0 Yes 81mg Take 1 Unive rs mg EC 3-30 tablet by ity of tablet 11:17: mouth in [place] 53 the Medical morning. Branch Will start when stops plavix on 07/06/22 arformotero 2022-0 2023- No 15ug Use 2 mL U nivers L 15 mcg/2 3-30 03-30 as ity of mL 11:13: 00:00 directed [place] nebulizer 20 :00 in the Medical solution morning Branch and 2 mL in the evening. arformotero 2022-0 2022- No 15ug Use 2 mL U nivers L 15 mcg/2 3-30 03-30 as ity of mL 11:13: 00:00 directed [place] nebulizer 20 :00 in the Medical solution morning Branch and 2 mL in the evening. omega 2022-0 Yes 360mg Take 360 Univers 3-dha-epa-f 3-30 mg by ity of deejay oil 11:13: mouth in [place] 360-1,200 07 the Medical mg CpDR morning Branch and 360 mg in the evening. albuterol 2022-0 Yes 1.25mg Use 3 mL Un elizabeth 1.25 mg/3 3-30 as ity of mL 11:10: directed [place] nebulizer 50 every 6 Medical solution (six) Branch hours as needed for Wheezing. metoprolol 2022-0 Yes Take by Univ ers succinate 3-30 mouth. ity of 100 mg CSpX 11:10: [place] 50 Medical Branch Vitamin E 2022-0 Yes Take by Unive rs 100 3-30 mouth. ity of unit/0.25 11:10: [place] mL Drop 50 Medical Branch ipratropium 2022-0 Yes 2{puff} Inhale 2 Univers /albuterol 3-30 Puffs ity of sulfate 11:10: every 6 [place] (COMBIVENT 50 (six) Medical INHALE) hours as Branch needed for Wheezing. Fenofibric 2022-0 Yes 135mg Take 1 Univ ers Acid 135 mg 3-30 capsule by it y of capsule 11:10: mouth in [place] [address] the Medical morning. Branch metoprolol 2022-0 Yes 25mg Take 1 Unive rs tartrate 25 3-30 tablet by ity of mg tablet 11:10: mouth in [place] [address] the Medical morning Branch and 1 tablet in the evening. allopurinoL 2022-0 Yes 300mg Take 1 Uni vers 300 mg 3-30 tablet by ity of tablet 11:10: mouth in [place] [address] the Medical morning. Branch clopidogreL 2022-0 Yes 75mg Take 1 Univ ers 75 mg 3-30 tablet by ity of tablet 11:10: mouth in [place] [address] the Medical morning. Branch dutasteride 2022-0 Yes .5mg Take 1 Univ ers 0.5 mg 3-30 capsule by ity of capsule 11:10: mouth in [place] [address] the Medical morning. Branch rosuvastati 2022-0 Yes 20mg Take 1 Univ ers n 20 mg 3-30 tablet by ity of tablet 11:10: mouth in [place] [address] the Medical morning. Branch aspirin 81 2022-0 2023- No 81mg Take 81 mg [facility] mg Cap -03 07-28 by mouth ity of 16:08: 00:00 daily. [place] 08 :00 Medical Branch aspirin 81 3-0 2023- No 81mg Take 81 mg [facility] mg Cap 07-03-28 by mouth ity of 16:08: 00:00 daily. [place] 08 :00 Medical Branch aspirin 81 3-0 2023- No 81mg Take 81 mg [facility] mg Cap 07-03-28 by mouth ity of 16:08: 00:00 daily. [place] 08 :00 Medical Branch aspirin 81 3-0 2023- No 81mg Take 81 mg [facility] mg Cap 07-03-28 by mouth ity of 16:08: 00:00 daily. [place] 08 :00 Medical Branch Vitamin E 2022-0 Yes Take by Unive rs 100 3-28 mouth. ity of unit/0.25 15:46: [place] mL Drop 30 Medical Branch Vitamin E 2022-0 Yes Take by Unive rs 100 3-28 mouth. ity of unit/0.25 15:46: [place] mL Drop 30 Medical Branch albuterol 2022-0 Yes 1.25mg Use 3 mL Un elizabeth 1.25 mg/3 3-28 as ity of mL 15:46: directed [place] nebulizer 21 every 6 Medical solution (six) Branch hours as needed for Wheezing. arformotero 2022-0 Yes 15ug Use 2 mL Un elizabeth L 15 mcg/2 3-28 as ity of mL 15:46: directed [place] nebulizer 21 in the Medical solution morning Branch and 2 mL in the evening. metoprolol 2022-0 Yes Take by Univ ers succinate 3-28 mouth. ity of 100 mg CSpX 15:46: [place] 21 Medical Branch ipratropium 2022-0 Yes 2{puff} Inhale 2 Univers /albuterol 3-28 Puffs ity of sulfate 15:46: every 6 [place] (COMBIVENT 21 (six) Medical INHALE) hours as Branch needed for Wheezing. Fenofibric 2022-0 Yes 135mg Take 1 Univ ers Acid 135 mg 3-28 capsule by it y of capsule 15:46: mouth in [place] 21 the Medical morning. Branch metoprolol 2022-0 Yes 25mg Take 1 Unive rs tartrate 25 3-28 tablet by ity of mg tablet 15:46: mouth in [facility] 21 the Medical morning. Branch allopurinoL 2022-0 Yes 300mg Take 1 Uni vers 300 mg 3-28 tablet by ity of tablet 15:46: mouth in [place] 21 the Medical morning. Branch arformotero 2022-0 Yes 15ug Inhale 2 Un elizabeth L 15 mcg/2 3-28 mL 2 (two) ity of mL 15:46: times [place] nebulizer 21 daily as Medica l solution needed. Branch clopidogreL 3-0 Yes 75mg Take 1 Univ ers 75 mg 3-28 tablet by ity of tablet 15:46: mouth in [place] 21 the Medical morning. Branch dutasteride 3-0 Yes .5mg Take 1 Univ ers 0.5 mg 3-28 capsule by ity of capsule 15:46: mouth in [place] 21 the Medical morning. Branch rosuvastati 2022-0 Yes 20mg Take 1 Univ ers n 20 mg 3-28 tablet by ity of tablet 15:46: mouth in [place] 21 the Medical morning. Branch albuterol 2022-0 Yes 1.25mg Use 3 mL Un [facility] 1.25 mg/3 3-28 as ity of mL 15:46: directed [place] nebulizer 21 every 6 Medical solution (six) Branch hours as needed for Wheezing. arformotero 2022-0 Yes 15ug Use 2 mL Un elizabeth L 15 mcg/2 3-28 as ity of mL 15:46: directed [place] nebulizer 21 in the Medical solution morning Branch and 2 mL in the evening. metoprolol 2022-0 Yes Take by [facility] ers succinate 3-28 mouth. ity of 100 mg CSpX 15:46: [place] 21 Medical Branch ipratropium 2022-0 Yes 2{puff} Inhale 2 [facility] /albuterol 3-28 Puffs ity of sulfate 15:46: every 6 [place] (COMBIVENT 21 (six) Medical INHALE) hours as Branch needed for Wheezing. Fenofibric 2022-0 Yes 135mg Take 1 [facility] ers Acid 135 mg 3-28 capsule by it y of capsule 15:46: mouth in [place] 21 the Medical morning. Branch metoprolol 2022-0 Yes 25mg Take 1 Un[facility] rs tartrate 25 3-28 tablet by ity of mg tablet 15:46: mouth in [facility] 21 the Medical morning. Branch allopurinoL 2022-0 Yes 300mg Take 1 Uni vers 300 mg 3-28 tablet by ity of tablet 15:46: mouth in [place] [id number] the Medical morning. Branch arformotero 2022-0 Yes 15ug Inhale 2 [facility] L 15 mcg/2 3-28 mL 2 (two) ity of mL 15:46: times [place] nebulizer 21 daily as Medica l solution needed. Branch clopidogreL 2022-0 Yes 75mg Take 1 [facility] ers 75 mg 3-28 tablet by ity of tablet 15:46: mouth in [place] 21 the Medical morning. Branch dutasteride 3-0 Yes .5mg Take 1 [facility] ers 0.5 mg 3-28 capsule by ity of capsule 15:46: mouth in [place] 21 the Medical morning. Branch rosuvastati 3-0 Yes 20mg Take 1 [facility] ers n 20 mg 3-28 tablet by ity of tablet 15:46: mouth in [place] 21 the Medical morning. Branch ezetimibe 3-0 Yes [id number] 10mg Take 1 [facility] 10 mg 3-28 tablet by ity of tablet 00:00: mouth in [place] 00 the Medical morning. Branch ezetimibe 2023-0 Yes [id number] 10mg Take 1 [facility] 10 mg 3-28 tablet by ity of tablet 00:00: mouth in [place] the Medical morning. Branch ezetimibe 2023-0 Yes [id number] 10mg Take 1 [facility] [place] 10 mg 3-28 tablet by ity of tablet 00:00: mouth in [place] the Medical morning. Branch ezetimibe 2023-0 Yes [id number] 10mg Take 1 [facility] [place] 10 mg 3-28 tablet by ity of tablet 00:00: mouth in [place] the Medical morning. Branch ezetimibe 2023-0 Yes [id number] 10mg Take 1 [facility] [place] 10 mg 3-28 tablet by ity of tablet 00:00: mouth in [place] the Medical morning. Branch ezetimibe 2023-0 Yes [id number] 10mg Take 1 [facility] [place] 10 mg 3-28 tablet by ity of tablet 00:00: mouth in [place] the Medical morning. Branch ezetimibe 2023-0 Yes [id number] 10mg Take 1 [facility] [place] 10 mg 3-28 tablet by ity of tablet 00:00: mouth in [place] the Medical morning. Branch ezetimibe 2023-0 Yes [id number] 10mg Take 1 [facility] [place] 10 mg 3-28 tablet by ity of tablet 00:00: mouth in [place] the Medical morning. Branch ezetimibe 2023-0 Yes [id number] 10mg Take 1 [facility] [place] 10 mg 3-28 tablet by ity of tablet 00:00: mouth in [place] the Medical morning. Branch ezetimibe 2023-0 Yes [id number] 10mg Take 1 [facility] [place] 10 mg 3-28 tablet by ity of tablet 00:00: mouth in [place] the Medical morning. Branch ezetimibe 2023-0 Yes [id number] 10mg Take 1 [facility] [place] 10 mg 3-28 tablet by ity of tablet 00:00: mouth in [place] the Medical morning. Branch ezetimibe 2023-0 Yes [id number] 10mg Take 1 [facility] [place] 10 mg 3-28 tablet by ity of tablet 00:00: mouth in [place] the Medical morning. Branch ezetimibe 2023-0 Yes [id number] 10mg Take 1 [facility] [place] 10 mg 3-28 tablet by ity of tablet 00:00: mouth in [place] 00 the Medical morning. Branch ezetimibe 0 Yes [id number] 10mg Take 1 [facility] [place] 10 mg 3-28 tablet by ity of tablet 00:00: mouth in [place] 00 the Medical morning. Branch ezetimibe 2022- No [id number] 10mg Take 1 [facility] nivers 10 mg -12-28 tablet by ity of tablet 00:00: 00:00 mouth in [place] 00 :00 the Medical morning. Branch ezetimibe 2022- No [id number] 10mg Take 1 U nivers 10 mg -12-28 tablet by ity of tablet 00:00: 00:00 mouth in [place] 00 :00 the Medical morning. Branch ezetimibe 2022- No [id number] 10mg Take 1 [facility] nivers 10 mg 07-03 tablet by ity of tablet 00:00: 00:00 mouth in [place] 00 :00 the Medical morning. Branch allopurinoL 2022- No 300mg Take 300 [facility] 300 mg 06-28-23 mg by ity of tablet 10:07: 00:00 mouth [place] 18 :00 daily. Medical Branch dutasteride 2022- No .5mg Take 0.5 U nivers (AVODART) 06-28-23 mg by ity of 0.5 mg 10:07: 00:00 mouth [place] capsule 18 :00 daily. Medical Branch rosuvastati 2022- No 20mg Take 20 mg Univers n (CRESTOR) 06-28 by mouth ity of 20 mg 10:07: 00:00 at [place] tablet 18 :00 bedtime. Medical Branch DULoxetine 2022- No 30mg Take 30 mg [facility] (CYMBALTA) 06-28- by mouth ity of 30 mg 10:07: 00:00 daily. [place] capsule 18 :00 Medical Branch tamsulosin 2022- No Take by [facility] vers 0.4 mg 24 06-28 mouth ity of hr capsule 10:07: 00:00 [place]. [place] 18 :00 Medical [facility] pregabalin 2022- No 150mg Take 150 U nivers (LYRICA) 06-28-23 mg by ity of 150 mg 10:07: 00:00 mouth 2 [place] capsule 18 :00 (two) Medical times Branch daily. clopidogreL 2022- No 75mg Take 75 mg [facility] (PLAVIX) 75 06-28 by mouth ity of mg tablet 10:07: 00:00 daily. [place] 18 :00 Medical Branch Pantoprazol 2022- No 40mg Take 40 mg [facility] e 06-28 by mouth ity of (PROTONIX) 10:07: 00:00 daily. [place] 40 [place] 18 :00 Medical delayed-rel Branch ease suspension fluticasone 2022- No Inhale. Un [place] -umeclidin- 06-28 ity of vilanter 10:07: 00:00 [place] (TRELEGY 18 :00 Medical ELLIPTA) Branch 100-62.5-25 mcg DsDv allopurinoL 2022- No 300mg Take 300 [facility] 300 mg 06-28- mg by ity of tablet 10:: 00:00 mouth [place] 18 :00 daily. Medical Branch dutasteride 2022- No .5mg Take 0.5 U nivers (AVODART) 06-28-23 mg by ity of 0.5 mg 10:07: 00:00 mouth [place] capsule 18 :00 daily. Medical Branch rosuvastati 2022- No 20mg Take 20 mg Univers n (CRESTOR) 06-28- by mouth ity of 20 mg 10:07: 00:00 at [place] tablet 18 :00 bedtime. Medical Branch DULoxetine 2022- No 30mg Take 30 mg [facility] (CYMBALTA) 06-28- by mouth ity of 30 mg 10:07: 00:00 daily. [place] capsule 18 :00 Medical Branch tamsulosin 2022- No Take by Uni vers 0.4 mg 24 06-28 mouth ity of hr capsule 10:07: 00:00 [place]. [place] 18 :00 Medical Branch pregabalin 2022- No 150mg Take 150 U nivers (LYRICA) 06-28-23 mg by ity of 150 mg 10:07: 00:00 mouth 2 [place] capsule 18 :00 (two) Medical times Branch daily. clopidogreL 2022- No 75mg Take 75 mg Univers (PLAVIX) 75 06-28 by mouth ity of mg tablet 10:07: 00:00 daily. [place] 18 :00 Medical Branch Pantoprazol 2022- No 40mg Take 40 mg [facility] e 06-28 by mouth ity of (PROTONIX) 10:07: 00:00 daily. [place] 40 mg 18 :00 Medical delayed-rel Branch ease suspension fluticasone 2022- No Inhale. Un [place]izabeth -umeclidin- 06-28 ity of vilanter 10:07: 00:00 [place] (TRELEGY 18 :00 Medical ELLIPTA) Branch 100-62.5-25 mcg DsDv allopurinoL 2022- No 300mg Take 300 [facility] 300 mg 06-28- mg by ity of tablet 10:07: 00:00 mouth [place] 18 :00 daily. Medical Branch dutasteride 2022- No .5mg Take 0.5 U nivers (AVODART) 06-28 mg by ity of 0.5 mg 10:07: 00:00 mouth [place] capsule 18 :00 daily. Medical Branch rosuvastati 2022- No 20mg Take 20 mg Univers n (CRESTOR) 06-28 by mouth ity of 20 mg 10:07: 00:00 at [place] tablet 18 :00 bedtime. Medical Branch DULoxetine 2022- No 30mg Take 30 mg [facility] (CYMBALTA) 06-28 by mouth ity of 30 mg 10:07: 00:00 daily. [place] capsule 18 :00 Medical Branch tamsulosin 2022- No Take by Uni vers 0.4 mg 24 06-28 mouth ity of hr capsule 10:07: 00:00 [place]. [place] 18 :00 [facility] pregabalin 2022- No 150mg Take 150 U nivers (LYRICA) 06-28- mg by ity of 150 mg 10:07: 00:00 mouth 2 [place] capsule 18 :00 (two) Medical times Branch daily. clopidogreL 2022- No 75mg Take 75 mg Univers (PLAVIX) 75 06-28 by mouth ity of mg tablet 10:07: 00:00 daily. [place] 18 :00 Medical Branch Pantoprazol 2022-2022- No 40mg Take 40 mg [facility] e 06-28 by mouth ity of (PROTONIX) 10:07: 00:00 daily. [place] 40 mg 18 :00 Medical delayed-rel Branch ease suspension fluticasone 2022- No Inhale. Un [place] -umeclidin- 06-28 ity of vilanter 10:07: 00:00 [place] (TRELEGY 18 :00 Medical ELLIPTA) Branch 100-62.5-25 mcg DsDv rosuvastati 2022-0 Yes 20mg Take 1 Univ ers n 20 mg 3-23 tablet by ity of tablet 10:06: mouth in [place] 02 the Medical morning. Branch rosuvastati 2022-0 Yes 20mg Take 1 [facility] ers n 20 mg 3-23 tablet by ity of tablet 10:06: mouth in [place] 02 the Medical morning. Branch rosuvastati 2022-0 Yes 20mg Take 1 [facility] ers n 20 mg 3-23 tablet by ity of tablet 10:06: mouth in [place] 02 the Medical morning. Branch Fenofibric 2022-0 Yes 135mg Take 1 [facility] ers Acid 135 mg -23 capsule by it y of capsule 10:06: mouth in [place] 01 the Medical morning. Branch metoprolol 2022-0 Yes 25mg Take 1 Unive rs tartrate 25 -23 tablet by ity of mg tablet 10:06: mouth in [facility] 01 the Medical morning. Branch allopurinoL 2022-0 Yes 300mg Take 1 Uni vers 300 mg 3-23 tablet by ity of tablet 10:06: mouth in [place] 01 the Medical morning. Branch arformotero 2022-0 Yes 15ug Inhale 2 Un elizabeth L 15 mcg/2 3-23 mL 2 (two) ity of mL 10:06: times [place] nebulizer daily as Medica l solution needed. Branch clopidogreL 2023-0 Yes 75mg Take 1 Univ ers 75 mg 3-23 tablet by ity of tablet 10:06: mouth in [place] [address] the Medical morning. Branch dutasteride 2023-0 Yes .5mg Take 1 Univ ers 0.5 mg 3-23 capsule by ity of capsule 10:06: mouth in [place] [address] the Medical morning. Branch Fenofibric 2023-0 Yes 135mg Take 1 Univ ers Acid 135 mg 3-23 capsule by it y of capsule 10:06: mouth in [place] [address] the Medical morning. Branch metoprolol 2023-0 Yes 25mg Take 1 Unive rs tartrate 25 3-23 tablet by ity of mg tablet 10:06: mouth in [place] [address] the Medical morning. Branch allopurinoL 2023-0 Yes 300mg Take 1 Uni vers 300 mg 3-23 tablet by ity of tablet 10:06: mouth in [place] [address] the Medical morning. Branch arformotero 2023-0 Yes 15ug Inhale 2 Un elizabeth L 15 mcg/2 3-23 mL 2 (two) ity of mL 10:06: times [place] nebulizer daily as Medica l solution needed. Branch clopidogreL 2023-0 Yes 75mg Take 1 Univ ers 75 mg 3-23 tablet by ity of tablet 10:06: mouth in [place] [address] the Medical morning. Branch dutasteride 2023-0 Yes .5mg Take 1 Univ ers 0.5 mg 3-23 capsule by ity of capsule 10:06: mouth in [place] [address] the Medical morning. Branch Fenofibric 2023-0 Yes 135mg Take 1 Univ ers Acid 135 mg 3-23 capsule by it y of capsule 10:06: mouth in [place] [address] the Medical morning. Branch metoprolol 2023-0 Yes 25mg Take 1 Unive rs tartrate 25 3-23 tablet by ity of mg tablet 10:06: mouth in [place] [address] the Medical morning. Branch allopurinoL 2023-0 Yes 300mg Take 1 Uni vers 300 mg 3-23 tablet by ity of tablet 10:06: mouth in [place] [address] the Medical morning. Branch arformotero 2023-0 Yes 15ug Inhale 2 Un elizabeth L 15 mcg/2 3-23 mL 2 (two) ity of mL 10:06: times [place] nebulizer 01 daily as Medica l solution needed. Branch clopidogreL 2023-0 Yes 75mg Take 1 Univ ers 75 mg 3-23 tablet by ity of tablet 10:06: mouth in [place] the Medical morning. Branch dutasteride 2022-0 Yes .5mg Take 1 Univ ers 0.5 mg 3-23 capsule by ity of capsule 10:06: mouth in [place] the Medical morning. Branch ipratropium 2022-0 Yes 2{puff} Inhale 2 Univers /albuterol 3-23 Puffs ity of sulfate 10:06: every 6 [place] (COMBIVENT 00 (six) Medical INHALE) hours as Branch needed for Wheezing. ipratropium 2022-0 Yes 2{puff} Inhale 2 Univers /albuterol 3-23 Puffs ity of sulfate 10:06: every 6 [place] (COMBIVENT 00 (six) Medical INHALE) hours as Branch needed for Wheezing. ipratropium 2022-0 Yes 2{puff} Inhale 2 Univers /albuterol 3-23 Puffs ity of sulfate 10:06: every 6 [place] (COMBIVENT 00 (six) Medical INHALE) hours as Branch needed for Wheezing. albuterol 0 Yes 2{puff} Inhale 2 U nivers 90 3-19 Puffs ity of mcg/actuati 00:00: every 6 [place] as on inhaler 00 (six) Medical hours as Branch needed for Wheezing. albuterol 2022-0 Yes 2{puff} Inhale 2 U nivers 90 3-19 Puffs ity of mcg/actuati 00:00: every 6 [place] as on inhaler 00 (six) Medical hours as Branch needed for Wheezing. albuterol 2022-0 Yes 2{puff} Inhale 2 U nivers 90 3-19 Puffs ity of mcg/actuati 00:00: every 6 [place] as on inhaler 00 (six) Medical hours as Branch needed for Wheezing. albuterol 2022-0 Yes 2{puff} Inhale 2 U nivers 90 3-19 Puffs ity of mcg/actuati 00:00: every 6 [place] as on inhaler 00 (six) Medical hours as Branch needed for Wheezing. albuterol 2022-0 Yes 2{puff} Inhale 2 U nivers 90 3-19 Puffs ity of mcg/actuati 00:00: every 6 [place] as on inhaler 00 (six) Medical hours as Branch needed for Wheezing. albuterol 0 Yes 2{puff} Inhale 2 U nivers 90 3-19 Puffs ity of mcg/actuati 00:00: every 6 [place] as on inhaler 00 (six) Medical hours as Branch needed for Wheezing. albuterol 0 Yes 2{puff} Inhale 2 U nivers 90 3-19 Puffs ity of mcg/actuati 00:00: every 6 [place] as on inhaler 00 (six) Medical hours as Branch needed for Wheezing. albuterol 0 Yes 2{puff} Inhale 2 U nivers 90 3-19 Puffs ity of mcg/actuati 00:00: every 6 [place] as on inhaler 00 (six) Medical hours as Branch needed for Wheezing. albuterol Yes 2{puff} Inhale 2 U nivers 90 3-19 Puffs ity of mcg/actuati 00:00: every 6 [place] as on inhaler 00 (six) Medical hours as Branch needed for Wheezing. albuterol 0 Yes 2{puff} Inhale 2 U nivers 90 3-19 Puffs ity of mcg/actuati 00:00: every 6 [place] as on inhaler 00 (six) Medical hours as Branch needed for Wheezing. albuterol 0 Yes 2{puff} Inhale 2 U nivers 90 3-19 Puffs ity of mcg/actuati 00:00: every 6 [place] as on inhaler 00 (six) Medical hours as Branch needed for Wheezing. albuterol 0 Yes 2{puff} Inhale 2 U nivers 90 3-19 Puffs ity of mcg/actuati 00:00: every 6 [place] as on inhaler 00 (six) Medical hours as Branch needed for Wheezing. albuterol 0 Yes 2{puff} Inhale 2 U nivers 90 3-19 Puffs ity of mcg/actuati 00:00: every 6 [place] as on inhaler 00 (six) Medical hours as Branch needed for Wheezing. albuterol 0 Yes 2{puff} Inhale 2 U nivers 90 3-19 Puffs ity of mcg/actuati 00:00: every 6 [place] as on inhaler 00 (six) Medical hours as Branch needed for Wheezing. albuterol Yes 2{puff} Inhale 2 U nivers 90 3-19 Puffs ity of mcg/actuati 00:00: every 6 [place] as on inhaler 00 (six) Medical hours as Branch needed for Wheezing. albuterol Yes 2{puff} Inhale 2 U nivers 90 3-19 Puffs ity of mcg/actuati 00:00: every 6 [place] as on inhaler 00 (six) Medical hours as Branch needed for Wheezing. albuterol Yes 2{puff} Inhale 2 U nivers 90 3-19 Puffs ity of mcg/actuati 00:00: every 6 [place] as on inhaler 00 (six) Medical hours as Branch needed for Wheezing. albuterol Yes 2{puff} Inhale 2 U nivers 90 3-19 Puffs ity of mcg/actuati 00:00: every 6 [place] as on inhaler 00 (six) Medical hours as Branch needed for Wheezing. albuterol Yes 2{puff} Inhale 2 U nivers 90 3-19 Puffs ity of mcg/actuati 00:00: every 6 [place] as on inhaler 00 (six) Medical hours as Branch needed for Wheezing. albuterol Yes 2{puff} Inhale 2 U nivers 90 3-19 Puffs ity of mcg/actuati 00:00: every 6 [place] as on inhaler 00 (six) Medical hours as Branch needed for Wheezing. albuterol Yes 2{puff} Inhale 2 U nivers 90 3-19 Puffs ity of mcg/actuati 00:00: every 6 [place] as on inhaler 00 (six) Medical hours as Branch needed for Wheezing. albuterol 0 Yes 2{puff} Inhale 2 U nivers 90 3-19 Puffs ity of mcg/actuati 00:00: every 6 [place] as on inhaler 00 (six) Medical hours as Branch needed for Wheezing. DULoxetine 0 Yes 60mg Take 1 Unive rs 60 mg 2-24 capsule by ity of capsule 00:00: mouth in [place] 00 the Medical morning. Branch DULoxetine 2023-0 Yes 60mg Take 1 Unive rs 60 mg 2-24 capsule by ity of capsule 00:00: mouth in [place] the Medical morning. Branch DULoxetine 2023-0 Yes 60mg Take 1 Unive rs 60 mg 2-24 capsule by ity of capsule 00:00: mouth in [place] the Medical morning. Branch DULoxetine 2023-0 Yes 60mg Take 1 Unive rs 60 mg 2-24 capsule by ity of capsule 00:00: mouth in [place] the Medical morning. Branch DULoxetine 2023-0 Yes 60mg Take 1 Unive rs 60 mg 2-24 capsule by ity of capsule 00:00: mouth in [place] the Medical morning. Branch DULoxetine 2023-0 Yes 60mg Take 1 Unive rs 60 mg 2-24 capsule by ity of capsule 00:00: mouth in [place] the morning. Branch DULoxetine 2023-0 Yes 60mg Take 1 Unive rs 60 mg 2-24 capsule by ity of capsule 00:00: mouth in [place] the Medical morning. Branch DULoxetine 2023-0 Yes 60mg Take 1 Unive rs 60 mg 2-24 capsule by ity of capsule 00:00: mouth in [place] the morning. Branch DULoxetine 2023-0 Yes 60mg Take 1 Unive rs 60 mg 2-24 capsule by ity of capsule 00:00: mouth in [place] the Medical morning. Branch DULoxetine 2023-0 Yes 60mg Take 1 Unive rs 60 mg 2-24 capsule by ity of capsule 00:00: mouth in [place] the Medical morning. Branch DULoxetine 2023-0 Yes 60mg Take 1 Unive rs 60 mg 2-24 capsule by ity of capsule 00:00: mouth in [place] the Medical morning. Branch DULoxetine 2023-0 Yes 60mg Take 1 Unive rs 60 mg 2-24 capsule by ity of capsule 00:00: mouth in [place] the Medical morning. Branch DULoxetine 2023-0 Yes 60mg Take 1 Unive rs 60 mg 2-24 capsule by ity of capsule 00:00: mouth in [place] the Medical morning. Branch DULoxetine 2023-0 Yes 60mg Take 1 Unive rs 60 mg 2-24 capsule by ity of capsule 00:00: mouth in [place] the Medical morning. Branch DULoxetine 2023-0 Yes 60mg Take 1 Unive rs 60 mg 2-24 capsule by ity of capsule 00:00: mouth in [place] the Medical morning. Branch DULoxetine 2023-0 Yes 60mg Take 1 Unive rs 60 mg 2-24 capsule by ity of capsule 00:00: mouth in [place] the morning. Branch DULoxetine 2023-0 Yes 60mg Take 1 Unive rs 60 mg 2-24 capsule by ity of capsule 00:00: mouth in [place] the morning. Branch DULoxetine 2023-0 Yes 60mg Take 1 Unive rs 60 mg 2-24 capsule by ity of capsule 00:00: mouth in [place] the morning. Branch DULoxetine 2023-0 Yes 60mg Take 1 Unive rs 60 mg 2-24 capsule by ity of capsule 00:00: mouth in [place] the morning. Branch DULoxetine 2023-0 Yes 60mg Take 1 Unive rs 60 mg 2-24 capsule by ity of capsule 00:00: mouth in [place] the morning. Branch DULoxetine 2023-0 Yes 60mg Take 1 Unive rs 60 mg 2-24 capsule by ity of capsule 00:00: mouth in [place] the morning. Branch DULoxetine 2023-0 Yes 60mg Take 1 Unive rs 60 mg 2-24 capsule by ity of capsule 00:00: mouth in [place] the morning. Branch hydrALAZINE 2023-0 Yes 50mg Take 1 Univ ers 50 mg 2-23 tablet by ity of tablet 00:00: mouth in [place] the Medical morning Branch and 1 tablet in the evening. spironolact 2023-0 Yes 50mg Take 1 Univ ers one 50 mg 2-23 tablet by ity o f tablet 00:00: mouth in [place] the Medical morning. Branch hydrALAZINE 2023-0 Yes 50mg Take 1 Univ ers 50 mg 2-23 tablet by ity of tablet 00:00: mouth in [place] the Medical morning Branch and 1 tablet in the evening. spironolact 2023-0 Yes 50mg Take 1 Univ ers one 50 mg 2-23 tablet by ity o f tablet 00:00: mouth in [place] the Medical morning. Branch hydrALAZINE 2023-0 Yes 50mg Take 1 Univ ers 50 mg 2-23 tablet by ity of tablet 00:00: mouth in [place] the Medical morning Branch and 1 tablet in the evening. spironolact 2023-0 Yes 50mg Take 1 Univ ers one 50 mg 2-23 tablet by ity o f tablet 00:00: mouth in [place] the Medical morning. Branch hydrALAZINE 2023-0 Yes 100mg Take 2 Uni vers 50 mg 2-23 tablets by ity of tablet 00:00: mouth in [place] the Medical morning Branch and 2 tablets at noon and 2 tablets in the evening. spironolact 2023-0 Yes 50mg Take 1 Univ ers one 50 mg 2-23 tablet by ity o f tablet 00:00: mouth in [place] the Medical morning. Branch hydrALAZINE 2023-0 Yes 100mg Take 2 Uni vers 50 mg 2-23 tablets by ity of tablet 00:00: mouth in [place] the Medical morning Branch and 2 tablets at noon and 2 tablets in the evening. spironolact 2023-0 Yes 50mg Take 1 Univ ers one 50 mg 2-23 tablet by ity o f tablet 00:00: mouth in [place] the Medical morning. Branch hydrALAZINE 2023-0 Yes 100mg Take 1 Uni vers 100 mg 2-23 tablet by ity of tablet 00:00: mouth in [place] the Medical morning Branch and 1 tablet at noon and 1 tablet in the evening. spironolact 2023-0 Yes 50mg Take 1 Univ ers one 50 mg 2-23 tablet by ity o f tablet 00:00: mouth in [place] the Medical morning. Branch hydrALAZINE 2023-0 Yes 100mg Take 1 Uni vers 100 mg 2-23 tablet by ity of tablet 00:00: mouth in [place] the Medical morning Branch and 1 tablet at noon and 1 tablet in the evening. spironolact 2023-0 Yes 50mg Take 1 Univ ers one 50 mg 2-23 tablet by ity o f tablet 00:00: mouth in [place] the Medical morning. Branch hydrALAZINE 2023-0 Yes 100mg Take 1 [facility] vers 100 mg 2-23 tablet by ity of tablet 00:00: mouth in [place] the Medical morning Branch and 1 tablet at noon and 1 tablet in the evening. spironolact 2023-0 Yes 50mg Take 1 Univ ers one 50 mg 2-23 tablet by ity o f tablet 00:00: mouth in [place] the Medical morning. Branch hydrALAZINE 2023-0 Yes 100mg Take 1 [facility] vers 100 mg 2-23 tablet by ity of tablet 00:00: mouth in [place] the Medical morning Branch and 1 tablet at noon and 1 tablet in the evening. spironolact 2023-0 Yes 50mg Take 1 [facility] ers one 50 mg 2-23 tablet by ity o f tablet 00:00: mouth in [place] the morning. Branch hydrALAZINE 2023-0 Yes 100mg Take 1 [facility] vers 100 mg 2-23 tablet by ity of tablet 00:00: mouth in [place] the Medical morning Branch and 1 tablet at noon and 1 tablet in the evening. spironolact 2023-0 Yes 50mg Take 1 [facility] ers one 50 mg 2-23 tablet by ity o f tablet 00:00: mouth in [place] the morning. Branch hydrALAZINE 2023-0 Yes 100mg Take 1 [facility] vers 100 mg 2-23 tablet by ity of tablet 00:00: mouth in [place] the Medical morning Branch and 1 tablet at noon and 1 tablet in the evening. spironolact 2023-0 Yes 50mg Take 1 [facility] ers one 50 mg 2-23 tablet by ity o f tablet 00:00: mouth in [place] the morning. Branch hydrALAZINE 2023-0 Yes 100mg Take 1 [facility] vers 100 mg 2-23 tablet by ity of tablet 00:00: mouth in [place] the Medical morning Branch and 1 tablet at noon and 1 tablet in the evening. spironolact 2023-0 Yes 50mg Take 1 [facility] ers one 50 mg 2-23 tablet by ity o f tablet 00:00: mouth in [place] the Medical morning. Branch hydrALAZINE 2023-0 Yes 100mg Take 1 [facility] vers 100 mg 2-23 tablet by ity of tablet 00:00: mouth in [place] the Medical morning Branch and 1 tablet at noon and 1 tablet in the evening. spironolact 2023-0 Yes 50mg Take 1 Univ ers one 50 mg 2-23 tablet by ity o f tablet 00:00: mouth in [place] the Medical morning. Branch hydrALAZINE 2023-0 Yes 100mg Take 1 [facility] vers 100 mg 2-23 tablet by ity of tablet 00:00: mouth in [place] 00 the Medical morning Branch and 1 tablet at noon and 1 tablet in the evening. spironolact 2023-0 Yes 50mg Take 1 Univ ers one 50 mg 2-23 tablet by ity o f tablet 00:00: mouth in [place] 00 the Medical morning. Branch hydrALAZINE 2023-0 Yes 100mg Take 1 [facility] vers 100 mg 2-23 tablet by ity of tablet 00:00: mouth in [place] 00 the Medical morning Branch and 1 tablet at noon and 1 tablet in the evening. spironolact 2023-0 Yes 50mg Take 1 Univ ers one 50 mg 2-23 tablet by ity o f tablet 00:00: mouth in [place] the Medical morning. Branch hydrALAZINE 2023-0 Yes 100mg Take 1 [facility] vers 100 mg 2-23 tablet by ity of tablet 00:00: mouth in [place] 00 the Medical morning Branch and 1 tablet at noon and 1 tablet in the evening. spironolact 2023-0 Yes 50mg Take 1 [facility] ers one 50 mg 2-23 tablet by ity o f tablet 00:00: mouth in [place] the Medical morning. Branch hydrALAZINE 2023-0 Yes 100mg Take 1 [facility] vers 100 mg 2-23 tablet by ity of tablet 00:00: mouth in [place] 00 the Medical morning Branch and 1 tablet at noon and 1 tablet in the evening. spironolact 2023-0 Yes 50mg Take 1 Univ ers one 50 mg 2-23 tablet by ity o f tablet 00:00: mouth in [place] the Medical morning. Branch hydrALAZINE 2023-0 Yes 100mg Take 1 [facility] vers 100 mg 2-23 tablet by ity of tablet 00:00: mouth in [place] 00 the Medical morning Branch and 1 tablet at noon and 1 tablet in the evening. spironolact 2023-0 Yes 50mg Take 1 [facility] ers one 50 mg 2-23 tablet by ity o f tablet 00:00: mouth in [place] 00 the Medical morning. Branch hydrALAZINE 2023-0 2023- No 100mg Take 1 [facility] [place] 100 mg 2-23 - tablet by ity of tablet 00:00: 00:00 mouth in [place] 00 :00 the Medical morning Branch and 1 tablet at noon and 1 tablet in the evening. spironolact 2023-0 2023- No 50mg Take 1 Uni vers one 50 mg 2-29 12- tablet by ity of tablet 00:00: 00:00 mouth in [place] 00 :00 the Medical morning. Branch hydrALAZINE 2022-0 2022- No 100mg Take 1 [facility] [place] 100 mg 2-29 12- tablet by ity of tablet 00:00: 00:00 mouth in [place] 00 :00 the Medical morning Branch and 1 tablet at noon and 1 tablet in the evening. spironolact 2022-0 202- No 50mg Take 1 Uni vers one 50 mg 2-29 12- tablet by ity of tablet 00:00: 00:00 mouth in [place] 00 :00 the Medical morning. Branch hydrALAZINE 2022-0 2022- No 100mg Take 1 Un elizabeth 100 mg -29 12- tablet by ity of tablet 00:00: 00:00 mouth in [place] 00 :00 the Medical morning Branch and 1 tablet at noon and 1 tablet in the evening. spironolact 2022-0 2022- No 50mg Take 1 Uni vers one 50 mg 05-31 tablet by ity of tablet 00:00: 00:00 mouth in [place] 00 :00 the Medical morning. Branch TRELEGY Yes 1{puff} Inhale 1 Uni vers ELLIPTA 1-31 Puff in ity of 100-62.5-25 00:00: the [place] mcg DsDv 00 morning. Medical Branch TRELEGY Yes 1{puff} Inhale 1 Uni vers ELLIPTA 1-31 Puff in ity of 100-62.5-25 00:00: the [place] mcg DsDv 00 morning. Medical Branch TRELEGY Yes 1{puff} Inhale 1 Uni vers ELLIPTA 1-31 Puff in ity of 100-62.5-25 00:00: the [place] mcg DsDv 00 morning. Medical Branch TRELEGY Yes 1{puff} Inhale 1 Uni vers ELLIPTA 1-31 Puff in ity of 100-62.5-25 00:00: the [place] mcg DsDv 00 morning. Medical Branch TRELEGY Yes 1{puff} Inhale 1 Uni vers ELLIPTA 1-31 Puff in ity of 100-62.5-25 00:00: the [place] mcg DsDv 00 morning. Medical Branch TRELEGY 2022-0 Yes 1{puff} Inhale 1 Uni vers ELLIPTA 1-31 Puff in ity of 100-62.5-25 00:00: the [place] mcg DsDv 00 morning. Medical Branch TRELEGY 2022-0 Yes 1{puff} Inhale 1 Uni vers ELLIPTA 1-31 Puff in ity of 100-62.5-25 00:00: the [place] mcg DsDv 00 morning. Medical Branch TRELEGY 2022-0 Yes 1{puff} Inhale 1 Uni vers ELLIPTA 1-31 Puff in ity of 100-62.5-25 00:00: the [place] mcg DsDv 00 morning. Medical Branch TRELEGY 2022- Yes 1{puff} Inhale 1 Uni vers ELLIPTA 1-31 Puff in ity of 100-62.5-25 00:00: the [place] mcg DsDv 00 morning. Medical Branch TRELEGY 2022-0 Yes 1{puff} Inhale 1 Uni vers ELLIPTA 1-31 Puff in ity of 100-62.5-25 00:00: the [place] mcg DsDv 00 morning. Medical Branch TRELEGY 2022-0 Yes 1{puff} Inhale 1 Uni vers ELLIPTA 1-31 Puff in ity of 100-62.5-25 00:00: the [place] mcg DsDv 00 morning. Medical Branch TRELEGY 2022-0 Yes 1{puff} Inhale 1 Uni vers ELLIPTA 1-31 Puff in ity of 100-62.5-25 00:00: the [place] mcg DsDv 00 morning. Medical Branch TRELEGY 2022-0 Yes 1{puff} Inhale 1 Uni vers ELLIPTA 1-31 Puff in ity of 100-62.5-25 00:00: the [place] mcg DsDv 00 morning. Medical Branch TRELEGY 2022-0 Yes 1{puff} Inhale 1 Uni vers ELLIPTA 1-31 Puff in ity of 100-62.5-25 00:00: the [place] mcg DsDv 00 morning. Medical Branch TRELEGY 2022-0 Yes 1{puff} Inhale 1 Uni vers ELLIPTA 1-31 Puff in ity of 100-62.5-25 00:00: the [place] mcg DsDv 00 morning. Medical Branch TRELEGY 2022-0 Yes 1{puff} Inhale 1 Uni vers ELLIPTA 1-31 Puff in ity of 100-62.5-25 00:00: the [place] mcg DsDv 00 morning. Medical Branch TRELEGY 3-0 Yes 1{puff} Inhale 1 Uni vers ELLIPTA 1-31 Puff in ity of 100-62.5-25 00:00: the [place] mcg DsDv 00 morning. Medical Branch ergocalcife 2023-0 2023- No [id number] Take 1 U nivers rol, 05-08-02 capsule by ity of vitamin d2, 00:00: 04:59 [place] 1,250 [place] 00 :00 weekly. Medical (50,000 Branch unit) capsule ergocalcife 2023-0 2023- No [id number] Take 1 U nivers rol, 05-08- capsule by ity of vitamin d2, 00:00: 04:59 [place] 1,250 mcg 00 :00 weekly. Medical (50,000 Branch unit) capsule ergocalcife 2023-0 2023- No [id number] Take 1 U nivers rol, 05-08- capsule by ity of vitamin d2, 00:00: 04:59 [place] 1,250 mcg 00 :00 weekly. Medical (50,000 Branch unit) capsule ergocalcife 2023-0 2023- No [id number] Take 1 U nivers rol, 05-08- capsule by ity of vitamin d2, 00:00: 04:59 mouth [place] 1,250 mcg 00 :00 weekly. Medical (50,000 Branch unit) capsule ergocalcife 2023-0 2023- No [id number] Take 1 U nivers rol, 05-08- capsule by ity of vitamin d2, 00:00: 04:59 mouth [place] 1,250 mcg 00 :00 weekly. Medical (50,000 Branch unit) capsule ergocalcife 2023-0 2023- No [id number] Take 1 U nivers rol, 05-08- capsule by ity of vitamin d2, 00:00: 04:59 mouth [place] 1,250 mcg 00 :00 weekly. Medical (50,000 Branch unit) capsule MAGNESIUM 2023-0 2023- No 400mg Take 400 Un eilzabeth ORAL 1-31 05-02 mg by ity of 00:00: 04:59 mouth. [place] 00 :00 Medical Branch ergocalcife 2023-0 2023- No [id number] Take 1 U nivers rol, 1- 05-02 capsule by ity of vitamin d2, 00:00: 04:59 mouth [place] 1,250 mcg 00 :00 weekly. Medical (50,000 Branch unit) capsule MAGNESIUM 2023-0 2023- No 400mg Take 400 Un elizabeth ORAL 1-31 05-02 mg by ity of 00:00: 04:59 mouth. [place] 00 :00 Medical Branch ergocalcife 2023-0 2023- No [id number] Take 1 U nivers rol, 1- 05-02 capsule by ity of vitamin d2, 00:00: 04:59 mouth [place] 1,250 mcg 00 :00 weekly. Medical (50,000 Branch unit) capsule MAGNESIUM 2023-0 2023- No 400mg Take 400 Un elizabeth ORAL 1-31 05-02 mg by ity of 00:00: 04:59 mouth. [place] 00 :00 Medical Branch ergocalcife 2023-0 2023- No [id number] Take 1 U nivers rol, 1- 05-02 capsule by ity of vitamin d2, 00:00: 04:59 mouth [place] 1,250 mcg 00 :00 weekly. Medical (50,000 Branch unit) capsule MAGNESIUM 2023-0 2023- No 400mg Take 400 Un elizabeth ORAL 1-31 05-02 mg by ity of 00:00: 04:59 mouth. [place] 00 :00 Medical Branch ergocalcife 2023-0 2023- No [id number] Take 1 U nivers rol, 1- 05-02 capsule by ity of vitamin d2, 00:00: 04:59 mouth [place] 1,250 mcg 00 :00 weekly. Medical (50,000 Branch unit) capsule MAGNESIUM 2023-0 2023- No 400mg Take 400 Un elizabeth ORAL 1-31 05-02 mg by ity of 00:00: 04:59 mouth. [place] 00 :00 Medical Branch ergocalcife 2023-0 2023- No [id number] Take 1 U nivers rol, 05-08 05-02 capsule by ity of vitamin d2, 00:00: 04:59 mouth [place] 1,250 mcg 00 :00 weekly. Medical (50,000 Branch unit) capsule MAGNESIUM 2023-0 2023- No 400mg Take 400 Un elizabeth ORAL 05-08 05-02 mg by ity of 00:00: 04:59 mouth. [place] 00 :00 Medical Branch amLODIPine 2023-0 Yes 5mg Take 1 Unive rs 5 mg tablet 1-26 tablet by ity of 00:00: mouth in [place] [address] the Medical morning Branch and 1 tablet in the evening. amLODIPine 2023-0 Yes 5mg Take 1 Unive rs 5 mg tablet 1-26 tablet by ity of 00:00: mouth in [place] [address] the Medical morning Branch and 1 tablet in the evening. amLODIPine 2023-0 Yes 5mg Take 1 Unive rs 5 mg tablet 1-26 tablet by ity of 00:00: mouth in [place] [address] the Medical morning Branch and 1 tablet in the evening. amLODIPine 2023-0 Yes 5mg Take 1 Unive rs 5 mg tablet 1-26 tablet by ity of 00:00: mouth in [place] [address] the Medical morning Branch and 1 tablet in the evening. amLODIPine 2023-0 Yes 5mg Take 1 Unive rs 5 mg tablet 1-26 tablet by ity of 00:00: mouth in [place] [address] the Medical morning Branch and 1 tablet in the evening. amLODIPine 2023-0 Yes 5mg Take 1 Unive rs 5 mg tablet 1-26 tablet by ity of 00:00: mouth in [place] [address] the Medical morning Branch and 1 tablet in the evening. amLODIPine 2023-0 Yes 5mg Take 1 Unive rs 5 mg tablet 1-26 tablet by ity of 00:00: mouth in [place] [address] the Medical morning Branch and 1 tablet in the evening. amLODIPine 2023-0 Yes 5mg Take 1 Unive rs 5 mg tablet 1-26 tablet by ity of 00:00: mouth in [place] [address] the Medical morning Branch and 1 tablet in the evening. amLODIPine 2023-0 Yes 5mg Take 1 Unive rs 5 mg tablet 1-26 tablet by ity of 00:00: mouth in [place] [address] the Medical morning [place] and 1 tablet in the evening. amLODIPine 2023-0 Yes 5mg Take 1 Unive rs 5 mg tablet 1-26 tablet by ity of 00:00: mouth in [place] 00 the Medical morning Branch and 1 tablet in the evening. amLODIPine 2023-0 Yes 5mg Take 1 Unive rs 5 mg tablet 1-26 tablet by ity of 00:00: mouth in [place] [address] the Medical morning Branch and 1 tablet in the evening. amLODIPine 2023-0 Yes 5mg Take 1 Unive rs 5 mg tablet 1-26 tablet by ity of 00:00: mouth in [place] [address] the Medical morning Branch and 1 tablet in the evening. amLODIPine 2023-0 Yes 5mg Take 1 Unive rs 5 mg tablet 1-26 tablet by ity of 00:00: mouth in [place] [address] the Medical morning Branch and 1 tablet in the evening. amLODIPine 2023-0 Yes 5mg Take 1 Unive rs 5 mg tablet 1-26 tablet by ity of 00:00: mouth in [place] [address] the Medical morning Branch and 1 tablet in the evening. amLODIPine 2023-0 Yes 5mg Take 1 Unive rs 5 mg tablet 1-26 tablet by ity of 00:00: mouth in [place] [address] the Medical morning Branch and 1 tablet in the evening. amLODIPine 2023-0 Yes 5mg Take 1 Unive rs 5 mg tablet 1-26 tablet by ity of 00:00: mouth in [place] [address] the Medical morning Branch and 1 tablet in the evening. amLODIPine 2023-0 Yes 5mg Take 1 Unive rs 5 mg tablet 1-26 tablet by ity of 00:00: mouth in [place] [address] the Medical morning Branch and 1 tablet in the evening. amLODIPine 2023-0 Yes 5mg Take 1 Unive rs 5 mg tablet 1-26 tablet by ity of 00:00: mouth in [place] [address] the Medical morning Branch and 1 tablet in the evening. amLODIPine 2023-0 Yes 5mg Take 1 Unive rs 5 mg tablet 1-26 tablet by ity of 00:00: mouth in [place] [address] the Medical morning Branch and 1 tablet in the evening. amLODIPine 2023-0 Yes 5mg Take 1 Unive rs 5 mg tablet 1-26 tablet by ity of 00:00: mouth in [place] [address] the Medical morning Branch and 1 tablet in the evening. amLODIPine 2023-0 Yes 5mg Take 1 Unive rs 5 mg tablet 1-26 tablet by ity of 00:00: mouth in [place] 00 the Medical morning Branch and 1 tablet in the evening. amLODIPine 2023-0 Yes 5mg Take 1 Unive rs 5 mg tablet 1-26 tablet by ity of 00:00: mouth in [place] 00 the Medical morning Branch and 1 tablet in the evening. furosemide 2023-0 2023- No 40mg Take 1 Univ ers 40 mg 1-26 04-27 tablet by ity of tablet 00:00: 04:59 mouth in [place] 00 :00 the Medical morning Branch and 1 tablet in the evening. tamsulosin 2023-0 2023- No .4mg Take 1 Univ ers 0.4 mg 24 1-26 04-27 capsule by ity of hr capsule 00:00: 04:59 mouth in [place] 00 :00 the Medical morning Branch and 1 capsule in the evening. furosemide 2023-0 2023- No 40mg Take 1 Univ ers 40 mg 1-26 04-27 tablet by ity of tablet 00:00: 04:59 mouth in [place] 00 :00 the Medical morning Branch and 1 tablet in the evening. tamsulosin 2023-0 2023- No .4mg Take 1 Univ ers 0.4 mg 24 1-26 04-27 capsule by ity of hr capsule 00:00: 04:59 mouth in [place] 00 :00 the Medical morning Branch and 1 capsule in the evening. furosemide 2023-0 2023- No 40mg Take 1 Univ ers 40 mg 1-26 04-27 tablet by ity of tablet 00:00: 04:59 mouth in [place] 00 :00 the Medical morning Branch and 1 tablet in the evening. tamsulosin 2023-0 2023- No .4mg Take 1 Univ ers 0.4 mg 24 1-26 04-27 capsule by ity of hr capsule 00:00: 04:59 mouth in [place] 00 :00 the Medical morning Branch and 1 capsule in the evening. furosemide 2023-0 2023- No 40mg Take 1 Univ ers 40 mg 1-26 04-27 tablet by ity of tablet 00:00: 04:59 mouth in [place] 00 :00 the Medical morning Branch and 1 tablet in the evening. tamsulosin 2023-0 2023- No .4mg Take 1 Univ ers 0.4 mg 24 1-26 04-27 capsule by ity of hr capsule 00:00: 04:59 mouth in [place] 00 :00 the Medical morning Branch and 1 capsule in the evening. furosemide 2023-0 2023- No 40mg Take 1 Univ ers 40 mg 1-26 04-27 tablet by ity of tablet 00:00: 04:59 mouth in [place] 00 :00 the Medical morning Branch and 1 tablet in the evening. tamsulosin 2023-0 2023- No .4mg Take 1 Univ ers 0.4 mg 24 1-26 04-27 capsule by ity of hr capsule 00:00: 04:59 mouth in [facility] 00 :00 the Medical morning Branch and 1 capsule in the evening. furosemide 2023-0 2023- No 40mg Take 1 Univ ers 40 mg 1-26 04-27 tablet by ity of tablet 00:00: 04:59 mouth in [place] 00 :00 the Medical morning Branch and 1 tablet in the evening. tamsulosin 2023-0 2023- No .4mg Take 1 Univ ers 0.4 mg 24 1-26 04-27 capsule by ity of hr capsule 00:00: 04:59 mouth in [facility] 00 :00 the Medical morning Branch and 1 capsule in the evening. furosemide 2023-0 2023- No 40mg Take 1 Univ ers 40 mg 1-26 04-27 tablet by ity of tablet 00:00: 04:59 mouth in [place] 00 :00 the Medical morning Branch and 1 tablet in the evening. tamsulosin 2023-0 2023- No .4mg Take 1 Univ ers 0.4 mg 24 1-26 04-27 capsule by ity of hr capsule 00:00: 04:59 mouth in [facility] 00 :00 the Medical morning Branch and 1 capsule in the evening. furosemide 2023-0 2023- No 40mg Take 1 Univ ers 40 mg 1-26 04-27 tablet by ity of tablet 00:00: 04:59 mouth in [place] 00 :00 the Medical morning Branch and 1 tablet in the evening. tamsulosin 2023-0 2023- No .4mg Take 1 Univ ers 0.4 mg 24 1-26 04-27 capsule by ity of hr capsule 00:00: 04:59 mouth in [facility] 00 :00 the Medical morning Branch and 1 capsule in the evening. furosemide 2023-0 2023- No 40mg Take 1 Univ ers 40 mg 1-26 04-27 tablet by ity of tablet 00:00: 04:59 mouth in [place] 00 :00 the Medical morning Branch and 1 tablet in the evening. tamsulosin 2023-0 2023- No .4mg Take 1 Univ ers 0.4 mg 24 -01 08-27 capsule by ity of hr capsule 00:00: 04:59 mouth in [place] 00 :00 the Medical morning Branch and 1 capsule in the evening. furosemide 2023-0 2023- No 40mg Take 1 Univ ers 40 mg 1-01 08-27 tablet by ity of tablet 00:00: 04:59 mouth in [place] 00 :00 the Medical morning Branch and 1 tablet in the evening. tamsulosin 2023-0 2023- No .4mg Take 1 Univ ers 0.4 mg 24 -01 08-27 capsule by ity of hr capsule 00:00: 04:59 mouth in [place] 00 :00 the Medical morning Branch and 1 capsule in the evening. furosemide 2023-0 2023- No 40mg Take 1 Univ ers 40 mg -01 08-27 tablet by ity of tablet 00:00: 04:59 mouth in [place] 00 :00 the Medical morning Branch and 1 tablet in the evening. tamsulosin 2023-0 2023- No .4mg Take 1 Univ ers 0.4 mg 24 -01 08-27 capsule by ity of hr capsule 00:00: 04:59 mouth in [place] 00 :00 the Medical morning Branch and 1 capsule in the evening. pantoprazol 2023-0 Yes 40mg Take 1 Univ ers e 40 mg EC 1-25 tablet by ity of tablet 00:00: mouth in [place] 00 the Medical morning. Branch pantoprazol 2023-0 Yes 40mg Take 1 Univ ers e 40 mg EC 1-25 tablet by ity of tablet 00:00: mouth in [place] 00 the Medical morning. Branch pantoprazol 2023-0 Yes 40mg Take 1 Univ ers e 40 mg EC 1-25 tablet by ity of tablet 00:00: mouth in [place] 00 the Medical morning. Branch pantoprazol 2023-0 Yes 40mg Take 1 Univ ers e 40 mg EC 1-25 tablet by ity of tablet 00:00: mouth in [place] 00 the Medical morning. Branch pantoprazol 2023-0 Yes 40mg Take 1 Univ ers e 40 mg EC 1-25 tablet by ity of tablet 00:00: mouth in [place] 00 the Medical morning. Branch pantoprazol 2023-0 Yes 40mg Take 1 Univ ers e 40 mg EC 1-25 tablet by ity of tablet 00:00: mouth in [place] 00 the Medical morning. Branch pantoprazol 2023-0 Yes 40mg Take 1 Univ ers e 40 mg EC 1-25 tablet by ity of tablet 00:00: mouth in [place] 00 the Medical morning. Branch pantoprazol 2023-0 Yes 40mg Take 1 Univ ers e 40 mg EC 1-25 tablet by ity of tablet 00:00: mouth in [place] 00 the Medical morning. Branch pantoprazol 2023-0 Yes 40mg Take 1 Univ ers e 40 mg EC 1-25 tablet by ity of tablet 00:00: mouth in [place] the Medical morning. Branch pantoprazol 2023-0 Yes 40mg Take 1 Univ ers e 40 mg EC 1-25 tablet by ity of tablet 00:00: mouth in [place] the Medical morning. Branch pantoprazol 2023-0 Yes 40mg Take 1 Univ ers e 40 mg EC 1-25 tablet by ity of tablet 00:00: mouth in [place] the Medical morning. Branch pantoprazol 2023-0 Yes 40mg Take 1 Univ ers e 40 mg EC 1-25 tablet by ity of tablet 00:00: mouth in [place] the Medical morning. Branch pantoprazol 2023-0 Yes 40mg Take 1 Univ ers e 40 mg EC 1-25 tablet by ity of tablet 00:00: mouth in [place] the Medical morning. Branch pantoprazol 2023-0 Yes 40mg Take 1 Univ ers e 40 mg EC 1-25 tablet by ity of tablet 00:00: mouth in [place] the Medical morning. Branch pantoprazol 2023-0 Yes 40mg Take 1 Univ ers e 40 mg EC 1-25 tablet by ity of tablet 00:00: mouth in [place] 00 the Medical morning. Branch pantoprazol 2023-0 Yes 40mg Take 1 Univ ers e 40 mg EC 1-25 tablet by ity of tablet 00:00: mouth in [place] 00 the Medical morning. Branch pantoprazol 2023-0 Yes 40mg Take 1 Univ ers e 40 mg EC 1-25 tablet by ity of tablet 00:00: mouth in [place] 00 the Medical morning. Branch pantoprazol 2023-0 Yes 40mg Take 1 Univ ers e 40 mg EC 1-25 tablet by ity of tablet 00:00: mouth in [place] the morning. Branch pantoprazol 2023-0 Yes 40mg Take 1 Univ ers e 40 mg EC 1-25 tablet by ity of tablet 00:00: mouth in [place] the morning. Branch pantoprazol 2023-0 Yes 40mg Take 1 Univ ers e 40 mg EC 1-25 tablet by ity of tablet 00:00: mouth in [place] the morning. Branch pantoprazol 2023-0 Yes 40mg Take 1 Univ ers e 40 mg EC 1-25 tablet by ity of tablet 00:00: mouth in [place] the morning. Branch pantoprazol 2023-0 Yes 40mg Take 1 Univ ers e 40 mg EC 1-25 tablet by ity of tablet 00:00: mouth in [place] the morning. Branch pregabalin 2022-1 Yes 150mg Take 1 Univ ers 150 mg 0-28 capsule by ity of capsule 00:00: mouth in [place] the Medical morning Branch and 1 capsule in the evening. pregabalin 2022-1 Yes 150mg Take 1 Univ ers 150 mg 0-28 capsule by ity of capsule 00:00: mouth in [place] the Medical morning Branch and 1 capsule in the evening. pregabalin 2022-1 Yes 150mg Take 1 Univ ers 150 mg 0-28 capsule by ity of capsule 00:00: mouth in [place] the Medical morning Branch and 1 capsule in the evening. pregabalin 2022-1 Yes 150mg Take 1 Univ ers 150 mg 0-28 capsule by ity of capsule 00:00: mouth in [place] the Medical morning Branch and 1 capsule in the evening. pregabalin 2022-1 Yes 150mg Take 1 Univ ers 150 mg 0-28 capsule by ity of capsule 00:00: mouth in [place] the Medical morning Branch and 1 capsule in the evening. pregabalin 2022-1 Yes 150mg Take 1 Univ ers 150 mg 0-28 capsule by ity of capsule 00:00: mouth in [place] [address] the Medical morning Branch and 1 capsule in the evening. pregabalin 2022-1 Yes 150mg Take 1 Univ ers 150 mg 0-28 capsule by ity of capsule 00:00: mouth in [place] [address] the Medical morning Branch and 1 capsule in the evening. pregabalin 2022-1 Yes 150mg Take 1 Univ ers 150 mg 0-28 capsule by ity of capsule 00:00: mouth in [place] [address] the Medical morning Branch and 1 capsule in the evening. pregabalin 2022-1 Yes 150mg Take 1 Univ ers 150 mg 0-28 capsule by ity of capsule 00:00: mouth in [address] Medical morning [place] and 1 capsule in the evening. pregabalin 2022-1 Yes 150mg Take 1 Univ ers 150 mg 0-28 capsule by ity of capsule 00:00: mouth in [address] Medical morning Branch and 1 capsule in the evening. pregabalin 2022-1 Yes 150mg Take 1 Univ ers 150 mg 0-28 capsule by ity of capsule 00:00: mouth in [address] morning [place] and 1 capsule in the evening. pregabalin 2022-1 Yes 150mg Take 1 Univ ers 150 mg 0-28 capsule by ity of capsule 00:00: mouth in [address] morning [place] and 1 capsule in the evening. pregabalin 2022-1 Yes 150mg Take 1 Univ ers 150 mg 0-28 capsule by ity of capsule 00:00: mouth in [address] morning [place] and 1 capsule in the evening. pregabalin 2022-1 Yes 150mg Take 1 Univ ers 150 mg 0-28 capsule by ity of capsule 00:00: mouth in [address] morning [place] and 1 capsule in the evening. pregabalin 2022-1 Yes 150mg Take 1 Univ ers 150 mg 0-28 capsule by ity of capsule 00:00: mouth in [address] Medical morning [place] and 1 capsule in the evening. pregabalin 2022-1 Yes 150mg Take 1 Univ ers 150 mg 0-28 capsule by ity of capsule 00:00: mouth in [address] morning [place] and 1 capsule in the evening. pregabalin 2022-1 Yes 150mg Take 1 Univ ers 150 mg 0-28 capsule by ity of capsule 00:00: mouth in [address] morning [place] and 1 capsule in the evening. pregabalin 2022-1 Yes 150mg Take 1 Univ ers 150 mg 0-28 capsule by ity of capsule 00:00: mouth in [address] morning [place] and 1 capsule in the evening. pregabalin 2022-1 Yes 150mg Take 1 Univ ers 150 mg 0-28 capsule by ity of capsule 00:00: mouth in [place] [address] the [facility] morning [place] and 1 capsule in the evening. pregabalin 2021-04 Yes 150mg Take 1 Univ ers 150 mg 0-28 capsule by ity of capsule 00:00: mouth in [place] [address] the [facility] morning [place] and 1 capsule in the evening. pregabalin 2021-04 Yes 150mg Take 1 Univ ers 150 mg 0-28 capsule by ity of capsule 00:00: mouth in [place] [address] the [facility] morning [place] and 1 capsule in the evening. pregabalin 2021-04 Yes 150mg Take 1 Univ ers 150 mg 0-28 capsule by ity of capsule 00:00: mouth in [place] [address] the [facility] and 1 capsule in the evening. NaCl 0.9% 2020-04- No PRN, Univers (NS) 05-17 Starting ity of injection 18:54: 19:46 on [facility] 00 :23 03/16/21 at Medical 1254, Branch [...] Push, ity of (PF)) 17:21: PRN, 1 [place] injection 4 41 dose, Medical mg Starting [...] Starting ity of amethasone 17:07: 19:46 on [facility] [place] (MAXITROL[place] 00 :23 03/16/21 at [facility] 3.5 1107, Branch mg/g-10,000 Until [facility] unit/g-0.1 03/16/21 at % 1346, ophthalmic Routine, ointment Intra-op gentamicin 2020-04 Yes PRN, Univers injection 05-17 Starting ity of 17:06: on [facility] 00 03/16/21 at [place] [address], Branch Until Discontinu ed, GRANT, Intra-op dexamethaso 2020-04 Yes PRN, Univer s ne 05-17 Starting ity of (DECADRON 17:06: on [facility] PHOSPHATE) 00 03/16/21 at [facility] ical injection 1106, Branch Until Discontinu ed, Routine, Intra-op ceFAZolin 2020-04 Yes PRN, Univers (ANCEF) 05-17 Starting ity of injection 17:06: on [facility] [place] 03/16/21 at [place] [address], Branch Until Discontinu ed, GRANT, Intra-op gentamicin 2020-04- No PRN, Univer s injection 05-17 Starting ity o f 17:06: 19:46 on [facility] [place] 00 :23 03/16/21 at [place] [address], Branch Until [facility] 03/16/21 at 1346, GRANT, Intra-op dexamethaso 2020-04- No PRN, Unive rs ne 05-17- Starting ity of (DECADRON 17:06: 19:46 on [facility] PHOSPHATE) 00 :23 03/16/21 at [facility] ical injection 1106, Branch Until [facility] 03/16/21 at 1346, Routine, Intra-op ceFAZolin 2020-04- [...] [facility] [place] 4-3 % 00 03/16/21 at [facility] (40-30 1058, Branch mg/mL) Until [...] [place] (BSS) 00 03/16/21 at [facility] ophthalmic 1040, Branch solution Until Discontinu ed, Routine, Intra-op DUOVISC 2020-04- No PRN, Univers (DUOVISC 05-17 Starting ity of VISCO 16:40: 19:46 on [facility] [place] ELASTIC) 3 00 :23 03/16/21 at Med ical %-4 %(0.5 1040, Branch mL) 1 % Until [place] (0.55 mL) 03/16/21 at intraocular 1346, injection Routine, Intra-op balanced 2020-04- No PRN, Univers salt soln 05-17 Starting ity o f no.2 irrig. 16:40: 19:46 on [place] (BSS) 00 :23 03/16/21 at [facility] ophthalmic 1040, Branch solution Until [place] 03/16/21 at 1346, Routine, Intra-op tetracaine 2020-04 Yes PRN, Univers (PONTOCAINE 05-17 Starting ity of ) 0.5 % 16:35: on [facility] [place] ophthalmic 00 03/16/21 at [facility] ical drops 1035, Branch Until Discontinu ed, Routine, Intra-op tetracaine 2020-04- No PRN, Univer s (PONTOCAINE 05-17 Starting ity of ) 0.5 % 16:35: 19:46 on [facility] [place] ophthalmic 00 :23 03/16/21 at [facility] ical drops 1035, Branch Until [place] 03/16/21 at 1346, Routine, Intra-op eye block 2020-04 Yes PRN, Univers syringe 05-17 Starting ity o f mL 16:31: on [facility] [place] 00 03/16/21 at [facility] 1031, Branch Until Discontinu ed, Intra-op eye block 2020-04- No PRN, Univers syringe 11 05-17 Starting ity of mL 16:31: 19:46 on [facility] [place] 00 :23 12 at [facility] 1031, Branch Until [place] 03/16/21 at 1346, Intra-op EPINEPHrine 2020-04 Yes PRN, Univer s (PF) 05-17 Starting ity of 1:1,000 (1 16:23: on [facility] [place] mg/mL) 00 03/16/21 at [facility] (ADRENALIN 1023, Branch (PF)) Until injection Discontinu ed, Routine, Intra-op EPINEPHrine 2020-04- No PRN, Unive rs (PF) 05-17 Starting ity of 1:1,000 (1 16:23: 19:46 on [place] mg/mL) 00 :23 03/16/21 at Medical (ADRENALIN 1023, Branch (PF)) Until Elisa injection [...] 1 mL, Univer s 1% (PF) 2-09 1209 Infiltrati ity o f (XYLOCAINE) 14:34: 19:46 on, PRN, [place] injection 1 41 :23 Starting Medi ricki mL on [facility]isa Branch 03/16/21 at 0834, Until [facility] 03/16/21 at 1346, Routine, Surgery/Pr ocedure, DSU Pre-op metoprolol 2020-04 Yes Take by [facility] ers succinate 2-09 mouth. ity of 100 mg CSpX 11:46: [address] Vitamin E 2020-04 [facility] 2-09 mouth. ity of unit/0.25 11:46: [place] mL Drop [address] [place] [address] albuterol 2020-04 Yes 1{ampul Use 1 Univ [...] mg by ity of tablet 11:46: mouth [place] [address] daily. [facility] Branch dutasteride 2020-04 Yes .5mg Take 0.5 Un elizabeth (AVODART) 2-09 mg by ity of 0.5 mg 11:46: mouth [place] capsule 22 daily. [facility] Branch aspirin 81 2020-04 Yes 81mg Take 81 mg U nivers mg Cap 2-09 by mouth ity of 11:46: daily. [address] rosuvastati 2020-04 Yes 20mg Take 20 mg Univers n (CRESTOR) 2-09 by mouth ity of 20 mg 11:46: at [place] tablet 22 bedtime. [facility] Branch DULoxetine 2020-04 Yes 30mg Take 30 mg U nivers (CYMBALTA) 2-09 by mouth ity o f 30 mg 11:46: daily. [place] capsule [address] [place] [address] tamsulosin 2020-04 Yes Take by [facility] ers 0.4 mg 24 2-09 mouth ity of hr capsule 11:46: daily. [address] pregabalin 2020-04 Yes 150mg Take 150 Un elizabeth (LYRICA) 2-09 mg by ity of 150 mg 11:46: mouth 2 [place] capsule 22 (two) Medical times Branch daily. metoprolol 2020-04 Yes Take by [facility] ers succinate 2-09 mouth. ity of 100 mg CSpX 11:46: [address] Branch clopidogreL 2020-04 Yes 75mg Take 75 mg Univers (PLAVIX) 75 2-09 by mouth ity of mg tablet 11:46: daily. [address] Branch Pantoprazol 2020-04 Yes 40mg Take 40 mg Univers e 2-09 by mouth ity of (PROTONIX) 11:46: daily. [place] [address] delayed-rel Branch ease suspension fluticasone 2020-04 Yes Inhale. [facility] vers -umeclidin- 2-09 ity of vilanter 11:46: [place] (TRELEGY 22 Medical ELLIPTA) Branch 100-62.5-25 mcg DsDv Vitamin E 2020-04 Yes Take by [facility] [place] [facility] rs 100 2-09 mouth. ity of unit/0.25 11:46: [place] mL Drop [address] [place] [address] Branch albuterol 2020-04 Yes 1{ampul Use 1 [facility] ers 1.25 mg/3 2-09 e} Ampule as [...] mg by ity of tablet 11:46: mouth [place] 22 daily. Medical Branch dutasteride 2020-04 Yes .5mg Take 0.5 Un elizabeth (AVODART) 2-09 mg by ity of 0.5 mg 11:46: mouth [place] capsule 22 daily. Medical Branch aspirin 81 2020-04 Yes 81mg Take 81 mg U nivers mg Cap 2-09 by mouth ity of 11:46: daily. [address] Branch rosuvastati 2020-04 Yes 20mg Take 20 mg Univers n (CRESTOR) 2-09 by mouth ity of 20 mg 11:46: at [place] tablet 22 bedtime. Medical Branch DULoxetine 2020-04 Yes 30mg Take 30 mg U nivers (CYMBALTA) 2-09 by mouth ity o f 30 mg 11:46: daily. [place] capsule [address] [place] [address] Branch tamsulosin 2020-04 Yes Take by [facility] ers 0.4 mg 24 2-09 mouth ity of hr capsule 11:46: daily. [address] Branch pregabalin 2020-04 Yes 150mg Take 150 Un elizabeth (LYRICA) 2-09 mg by ity of 150 mg 11:46: mouth 2 [place] capsule 22 (two) Medical times Branch daily. metoprolol 2020-04 Yes Take by [facility] ers succinate 2-09 mouth. ity of 100 mg CSpX 11:46: [address] Branch clopidogreL 2020-04 Yes 75mg Take 75 mg Univers (PLAVIX) 75 2-09 by mouth ity of mg tablet 11:46: daily. [address] Branch Pantoprazol 2020-04 Yes 40mg Take 40 mg Univers e 2-09 by mouth ity of (PROTONIX) 11:46: daily. [place] [address] delayed-rel Branch ease suspension fluticasone 2020-04 Yes Inhale. [facility] vers -umeclidin- 209 ity of vilanter 11:46: [place] (TRELEGY 22 Medical ELLIPTA) Branch 100-62.5-25 mcg DsDv Vitamin E 2020-04 Yes Take by [facility] [place] [facility] rs 100 2-09 mouth. ity of unit/0.25 11:46: [place] mL Drop [address] [place] [address] Branch albuterol 2020-04 Yes 1{ampul Use 1 [...] 2-09 by mouth ity of 11:46: daily. [place] [address] Medical Branch rosuvastati 2020-04 Yes 20mg Take 20 mg Univers n (CRESTOR) 2-09 by mouth ity of 20 mg 11:46: at [place] tablet 22 bedtime. Medical Branch DULoxetine 2020-04 Yes 30mg Take 30 mg U nivers (CYMBALTA) 2-09 by mouth ity o f 30 mg 11:46: daily. [place] capsule Medical Branch tamsulosin 2020-04 Yes Take by [facility] ers 0.4 mg 24 2-09 mouth ity of hr capsule 11:46: daily. [place] [address] Medical Branch pregabalin 2020-04 Yes 150mg Take 150 Un elizabeth (LYRICA) 2-09 mg by ity of 150 mg 11:46: mouth 2 [place] capsule 22 (two) Medical times Branch daily. metoprolol 2020-04 Yes Take by [facility] ers succinate 2-09 mouth. ity of 100 mg CSpX 11:46: [address] Branch clopidogreL 2020-04 Yes 75mg Take 75 mg Univers (PLAVIX) 75 2-09 by mouth ity of mg tablet 11:46: daily. [place] [address] Medical Branch Pantoprazol 2020-04 Yes 40mg Take 40 mg Univers e 2-09 by mouth ity of (PROTONIX) 11:46: daily. [place] 40 mg Medical delayed-rel Branch ease suspension fluticasone 2020-04 Yes Inhale. [facility] vers -umeclidin- 2-09 ity of vilanter 11:46: [place] (TRELEGY 22 Medical ELLIPTA) Branch 100-62.5-25 mcg DsDv Vitamin E 2020-04 Yes Take by [facility] [place] [facility] rs 100 2-09 mouth. ity of unit/0.25 11:46: [place] mL Drop Medical Branch albuterol 2020-04 [...] 2-09 by mouth ity of 11:46: daily. [address] Branch rosuvastati 2020-04 Yes 20mg Take 20 mg Univers n (CRESTOR) 2-09 by mouth ity of 20 mg 11:46: at [place] tablet 22 bedtime. Medical Branch DULoxetine 2020-04 Yes 30mg Take 30 mg U nivers (CYMBALTA) 2-09 by mouth ity o f 30 mg 11:46: daily. [place] capsule [address] [place] [address] Branch tamsulosin 2020-04 Yes Take by [facility] ers 0.4 mg 24 2-09 mouth ity of hr capsule 11:46: daily. [address] Branch pregabalin 2020-04 Yes 150mg Take 150 Un elizabeth (LYRICA) 2-09 mg by ity of 150 mg 11:46: mouth 2 [place] capsule 22 (two) Medical times Branch daily. metoprolol 2020-04 Yes Take by [facility] ers succinate 2-09 mouth. ity of 100 mg CSpX 11:46: [address] Branch clopidogreL 2020-04 Yes 75mg Take 75 mg Univers (PLAVIX) 75 2-09 by mouth ity of mg tablet 11:46: daily. [address] Branch Pantoprazol 2020-04 Yes 40mg Take 40 mg Univers e 2-09 by mouth ity of (PROTONIX) 11:46: daily. [place] 40 [facility] Medical delayed-rel Branch ease suspension fluticasone 2020-04 Yes Inhale. Uni vers -umeclidin- 2-09 ity of vilanter 11:46: [place] (TRELEGY 22 [facility] ELLIP) Branch 100-62.5-25 mcg DsDv Vitamin E 2020-04 [...] 22 (two) Medical solution times Branch daily. aspirin 81 2020-04 Yes 81mg Take 81 mg U nivers mg Cap 2-09 by mouth ity of 11:46: daily. [address] Branch metoprolol 2020-04 Yes Take by Univ ers succinate 2-09 mouth. ity of 100 mg CSpX 11:46: [address] Branch Vitamin E 2020-04 Yes Take by Unive rs 100 2-09 mouth. ity of unit/0.25 11:46: [place] mL Drop Medical Branch albuterol 2020-04 [...] 22 (two) Medical solution times Branch daily. aspirin 81 2020-04 Yes 81mg Take 81 mg U nivers mg Cap 2-09 by mouth ity of 11:46: daily. [address] Branch metoprolol 2020-04 Yes Take by Univ ers succinate 2-09 mouth. ity of 100 mg CSpX 11:46: [address] Branch Vitamin E 2020-04 Yes Take by Unive rs 100 2-09 mouth. ity of unit/0.25 11:46: [place] mL Drop 22 Medical Branch albuterol 2020-04 Yes 1{ampul Use 1 Univ ers 1.25 mg/3 2-09 e} Ampule as ity o f mL 11:46: directed [place] nebulizer 22 every 6 Medical solution (six) [place] hours as needed for Wheezing. arformotero 2020-04 Yes 15ug Use 15 mcg Univers L (BROVANA) 09 as ity of 15 mcg/2 mL 11:46: directed 2 [place] nebulizer 22 (two) Medical solution times [place] daily. aspirin 81 2020-04 Yes 81mg Take 81 mg U nivers mg Cap 09 by mouth ity of 11:46: daily. [address] NaCl 0.9% 2020-04 Yes PRN, Univers (NS) 18 Starting ity of injection 14:52: on [facility] 00 02/23/21 Medical at 0852, Branch Until Discontinu ed, Routine, Intra-op NaCl 0.9% 2020-04- No PRN, Univers (NS) 04-25 Starting ity of injection 14:52: 17:45 on [facility] 00 :34 02/23/21 Medical at 0852, Branch Until Elisa 02/23/21 at 1145, Routine, Intra-op water for 2020-04 Yes PRN, Univers irrigation 04-25 Starting ity o f irrigation 14:44: on [facility] solution 00 02/23/21 Medical at 0844, Branch Until Discontinu ed, Routine, Intra-op water for 2020-04- No PRN, Univers irrigation 04-25 Starting ity of irrigation 14:44: 17:45 on [facility] [place] solution 00 :34 02/23/21 Medical at 0844, Branch Until [place]isa 02/23/21 at 1145, Routine, Intra-op tetracaine 2020-04 Yes PRN, Univers (PONTOCAINE 04-25 Starting ity of ) 0.5 % 14:42: on [facility] ophthalmic 00 02/23/21 Medic al drops at 0842, Branch Until Discontinu ed, Routine, Intra-op tetracaine 2020-04- No PRN, Univer s (PONTOCAINE 04-25 Starting ity of ) 0.5 % 14:42: 17:45 on [facility] ophthalmic 00 :34 02/23/21 Medic al drops at 0842, Branch Until Elisa 02/23/21 at 1145, Routine, Intra-op neomycin-po 2020-04 Yes PRN, Univer s lymyxin-dex 18 Starting ity of amethasone 14:26: on Elisa [place] (MAXITROL) 00 02/23/21 Medic al 3.5 at 0826, Branch mg/g-10,000 Until unit/g-0.1 Discontinu % ed, ophthalmic Routine, ointment Intra-op gentamicin 2020-04 Yes PRN, Univers injection 04-25 Starting ity of 14:26: on Elisa [place] 00 02/23/21 Medical at 0826, Branch Until Discontinu ed, GRANT, Intra-op eye block 2020-04 Yes PRN, Univers syringe 11 04-25 Starting ity o f mL 14:26: on Elisa [place] 00 02/23/21 Medical at 0826, Branch Until Discontinu ed, Intra-op neomycin-po 2020-04- No PRN, Unive rs lymyxin-dex 04-25 Starting ity of amethasone 14:26: 17:45 [facility]34 02/23/21 Medic al 3.5 at 0826, Branch mg/g-10,000 Until Elisa unit/g-0.1 02/23/21 % at 1145, ophthalmic Routine, ointment Intra-op gentamicin 2020-04- No PRN, Univer s injection 04-25 Starting ity o f 14:26: 17:45 on Elisa [place] 00 :34 02/23/21 Medical at 0826, Branch Until Elisa 02/23/21 at 1145, GRANT, Intra-op eye block 2020-04- No PRN, Univers syringe 04-25 Starting ity of mL 14:26: 17:45 [...] at 42 Unive rs [place] IV 04-25 1118 mL/hr, ity of infusion 13:15: 13:10 1,000 [...] o f mL 09:45: directed [place] nebulizer 32 every 6 Medical solution (six) Branch hours as needed for Wheezing. arformotero 2020-04 Yes 15ug Use 15 mcg Univers L (BROVANA) 1-18 as ity of 15 mcg/2 mL 09:45: directed 2 [place] nebulizer 32 (two) Medical solution times Branch daily. allopurinoL 2020-04 Yes 300mg Take 300 U nivers 300 mg 1-18 mg by ity of tablet 09:45: mouth [place] [id number] daily. Medical Branch dutasteride 2020-04 Yes .5mg Take 0.5 Un elizabeth (AVODART) 1-18 mg by ity of 0.5 mg 09:45: mouth [place] [address] daily. Medical Branch aspirin 81 2020-04 Yes 81mg Take 81 mg U nivers mg Cap 1-18 by mouth ity of 09:45: daily. [address] Branch rosuvastati 2020-04 Yes 20mg Take 20 mg Univers n (CRESTOR) -18 by mouth ity of 20 mg 09:45: at [place] tablet bedtime. Medical Branch DULoxetine 2020-04 Yes 30mg Take 30 mg U nivers (CYMBALTA) 1-18 by mouth ity o f 30 mg 09:45: daily. [address] Branch tamsulosin 2020-04 Yes Take by [facility] ers 0.4 mg 24 1-18 mouth ity of hr capsule 09:45: daily. [address] pregabalin 2020-04 Yes 150mg Take 150 Un elizabeth (LYRICA) 1-18 mg by ity of 150 mg 09:45: mouth 2 [place] capsule 32 (two) Medical times Branch daily. metoprolol 2020-04 Yes Take by [facility] ers succinate 1-18 mouth. ity of 100 mg CSpX 09:45: [address] Branch clopidogreL 2020-04 Yes 75mg Take 75 mg Univers (PLAVIX) 75 -18 by mouth ity of mg tablet 09:45: daily. [address] Branch Pantoprazol 2020-04 Yes 40mg Take 40 mg Univers e -18 by mouth ity of (PROTONIX) 09:45: daily. [place] [address] delayed-rel Branch ease suspension fluticasone 2020-04 Yes Inhale. Uni vers -umeclidin- -18 ity of vilanter 09:45: [place] (TRELEGY Medical ELLIPTA) Branch 100-62.5-25 mcg DsDv Vitamin E 2020-04 Yes Take by Unive rs 100 1-18 mouth. ity of unit/0.25 09:45: [place] mL Drop [address] [place] [address] Branch albuterol 2020-04 Yes 1{ampul Use 1 Univ ers 1.25 mg/3 1-18 e} Ampule as ity o f mL 09:45: directed [place] nebulizer 32 every 6 Medical solution (six) Branch hours as needed for Wheezing. arformotero 2020-04 Yes 15ug Use 15 mcg Univers L (BROVANA) -18 as ity of 15 mcg/2 mL 09:45: directed 2 [place] nebulizer 32 (two) Medical solution times Branch daily. allopurinoL 2020-04 Yes 300mg Take 300 U nivers 300 mg 1-18 mg by ity of tablet 09:45: mouth [place] [address] daily. Medical Branch dutasteride 2020-04 Yes .5mg Take 0.5 Un elizabeth (AVODART) 1-18 mg by ity of 0.5 mg 09:45: mouth [place] capsule 32 daily. Medical Branch aspirin 81 2020-04 Yes 81mg Take 81 mg U nivers mg Cap 1-18 by mouth ity of 09:45: daily. [address] Branch rosuvastati 2020-04 Yes 20mg Take 20 mg Univers n (CRESTOR) 1-18 by mouth ity of 20 mg 09:45: at [place] tablet bedtime. Medical Branch DULoxetine 2020-04 Yes 30mg Take 30 mg U nivers (CYMBALTA) 1-18 by mouth ity o f 30 mg 09:45: daily. [place] capsule [address] [place] [address] Branch tamsulosin 2020-04 Yes Take by [facility] ers 0.4 mg 24 1-18 mouth ity of hr capsule 09:45: daily. [address] Branch pregabalin 2020-04 Yes 150mg Take 150 Un elizabeth (LYRICA) 1-18 mg by ity of 150 mg 09:45: mouth 2 [place] capsule 32 (two) Medical times Branch daily. metoprolol 2020-04 Yes Take by [facility] ers succinate -18 mouth. ity of 100 mg CSpX 09:45: [address] Branch clopidogreL 2020-04 Yes 75mg Take 75 mg Univers (PLAVIX) 75 18 by mouth ity of mg tablet 09:45: daily. [address] Branch Pantoprazol 2020-04 Yes 40mg Take 40 mg Univers e 18 by mouth ity of (PROTONIX) 09:45: daily. [place] [address] delayed-rel Branch ease suspension fluticasone 2020-04 Yes Inhale. [facility] vers -umeclidin- 18 ity of vilanter 09:45: [place] (TRELEGY Medical ELLIPTA) Branch 100-62.5-25 mcg DsDv Vitamin E 2020-04 Yes Take by [facility] [place] [facility] rs 100 1-18 mouth. ity of unit/0.25 09:45: [place] mL Drop [address] [place] [address] Branch albuterol 2020-04 Yes 1{ampul Use 1 [facility] ers 1.25 mg/3 1-18 e} Ampule as ity o f mL 09:45: directed [place] nebulizer every 6 Medical solution (six) Branch hours as needed for Wheezing. arformotero 2020-04 Yes 15ug Use 15 mcg Univers L (BROVANA) 1-18 as ity of 15 mcg/2 mL 09:45: directed 2 [place] nebulizer 32 (two) Medical solution times Branch daily. allopurinoL 2020-04 Yes 300mg Take 300 U nivers 300 mg 1-18 mg by ity of tablet 09:45: mouth [place] [id number] daily. Medical Branch dutasteride 2020-04 Yes .5mg Take 0.5 Un [place]izabeth (AVODART) 1-18 mg by ity of 0.5 mg 09:45: mouth [place] capsule daily. Medical Branch aspirin 81 2020-04 Yes 81mg Take 81 mg U nivers mg Cap 1-18 by mouth ity of 09:45: daily. [address] Branch rosuvastati 2020-04 Yes 20mg Take 20 mg Univers n (CRESTOR) 18 by mouth ity of 20 mg 09:45: at [place] [address] bedtime. Medical Branch DULoxetine 2020-04 Yes 30mg Take 30 mg U nivers (CYMBALTA) 18 by mouth ity o f 30 mg 09:45: daily. [place] capsule Medical Branch tamsulosin 2020-04 Yes Take by [facility] ers 0.4 mg 24 18 mouth ity of hr capsule 09:45: daily. [address] Branch pregabalin 2020-04 Yes 150mg Take 150 Un elizabeth (LYRICA) 1-18 mg by ity of 150 mg 09:45: mouth 2 [place] capsule (two) Medical times Branch daily. metoprolol 2020-04 Yes Take by [facility] ers succinate -18 mouth. ity of 100 mg CSpX 09:45: [address] clopidogreL 2020-04 Yes 75mg Take 75 mg Univers (PLAVIX) 75 04-25 by mouth ity of mg tablet 09:45: daily. [address] Branch Pantoprazol 2020-04 Yes 40mg Take 40 mg Univers e 18 by mouth ity of (PROTONIX) 09:45: daily. [place] [address] delayed-rel Branch ease suspension fluticasone 2020-04 Yes Inhale. [facility] vers -umeclidin- 04-25 ity of vilanter 09:45: [place] (TRELEGY Medical ELLIPTA) Branch 100-62.5-25 mcg DsDv Vitamin E 2020-04 Yes Take by [facility] [place] [facility] rs 100 1-18 mouth. ity of unit/0.25 09:45: [place] mL Drop [address] [place] [address] Branch aspirin 325 2015-0 Yes 325mg QD Take [address] MG tablet 6-08 mg by [facility] 10:[facility]: mouth Medical 05 daily. [place] pantoprazol Yes 40mg QD Take [address] [facility] e 6-08 by mouth [facility] (PROTONIX) 10:57: daily. Medic al 40 MG 05 [place] tablet pitavastati Yes 4mg QD Take [address] n (LIVALO) 6-08 by mouth [facility] 4 mg Tab 10:57: daily. [address] tamsulosin 2015-0 Yes .4mg QD Take 0.[address] [facility] (FLOMAX) 6-08 mg by [facility] 0.4 mg Cp24 10:57: mouth Medic al 24 hr 05 daily. [place] capsule fenofibric 0 Yes 135mg QD Take [address] acid, 6-08 mg by [facility] choline, 10:57: mouth Medical 135 mg 05 daily. [place] capsule dutasteride 2016-0 Yes .5mg QD Take 0.[address] (AVODART) 6-08 mg by [facility] 0.5 mg 10:57: mouth Medical capsule 05 daily. [place] allopurinol Yes 300mg QD Take [address] (ZYLOPRIM) 6-08 mg by [facility] 300 MG 10:57: mouth Medical tablet 05 daily. [place] gabapentin 0 Yes 300mg Q.5D Take 300 [facility] [...] MG 10:57: daily . Medical tablet 05 [place] fentaNYL Yes 2{patch Place [address] [facility] (DURAGESIC) 6-08 } patches [facility] 12 mcg/hr 10:57: onto the Medi ricki patch 05 skin every Center third day. clopidogrel 0 Yes 75mg QD Take [address] [facility] (PLAVIX) 75 6-08 by mouth Luke s mg tablet 10:57: daily. Medica l 05 Center aspirin 325 2016-0 Yes 325mg QD Take [address] MG tablet 6-08 mg by [facility] 10:57: mouth Medical 05 daily. [place] pantoprazol 0 Yes 40mg QD Take [address] [facility] e 6-08 by mouth [facility] (PROTONIX) 10:57: daily. Medic al 40 MG 05 Center tablet pitavastati Yes 4mg QD Take [address] n (LIVALO) 6-08 by mouth [facility] 4 mg Tab 10:57: daily. Medical 05 Center tamsulosin 2015-0 Yes .4mg QD Take 0.[address] (FLOMAX) 6-08 mg by [facility] 0.4 mg Cp24 10:57: mouth Medic al 24 hr 05 daily. [place] capsule fenofibric Yes 135mg QD Take [address] acid, 6-08 mg by [facility] choline, 10:57: mouth Medical 135 mg 05 daily. Center capsule dutasteride 20160 Yes .5mg QD Take 0.[address] (AVODART) 6-08 mg by [facility] 0.5 mg 10:57: mouth Medical capsule 05 daily. [place] allopurinol Yes 300mg QD Take [address] (ZYLOPRIM) 6-08 mg by [facility] 300 MG 10:57: mouth Medical tablet 05 daily. [place] gabapentin Yes 300mg Q.5D Take 300 CH [...] MG 10:57: daily . Medical tablet 05 [place] fentaNYL Yes 2{patch Place [address] [facility] (DURAGESIC) 6-08 } patches [facility] 12 mcg/hr 10:57: onto the Medi ricki patch 05 skin every Center third day. clopidogrel 0 Yes 75mg QD Take [address] (PLAVIX) 75 6-08 by mouth Luke s mg tablet 10:57: daily. Medica l 05 [place] aspirin 325 2016-0 Yes 325mg QD Take [address] MG tablet 6-08 mg by [facility] 10:57: mouth Medical 05 daily. [place] pantoprazol 0 Yes 40mg QD Take [address] [facility] e 6-08 by mouth [facility] (PROTONIX) 10:57: daily. Medic al 40 MG 05 [place] tablet pitavastati Yes 4mg QD Take [address] n (LIVALO) 6-08 by mouth [facility] 4 mg Tab 10:57: daily. Medical 05 Center tamsulosin 0 Yes .4mg QD Take 0.[address] (FLOMAX) 6-08 mg by [facility] 0.4 mg Cp24 10:57: mouth Medic al 24 hr 05 daily. [place] capsule fenofibric Yes 135mg QD Take [address] acid, 6-08 mg by [facility] choline, 10:57: mouth Medical 135 mg 05 daily. Center capsule dutasteride Yes .5mg QD Take 0.[address] (AVODART) 6-08 mg by [facility] 0.5 mg 10:57: mouth Medical capsule 05 daily. [place] allopurinol Yes 300mg QD Take [address] (ZYLOPRIM) 6-08 mg by [facility] 300 MG 10:57: mouth Medical tablet 05 daily. [place] gabapentin Yes 300mg Q.5D Take 300 CH [...] MG 10:57: daily . Medical tablet 05 [place] fentaNYL 0 Yes 2{patch Place [address] [facility] [facility] (DURAGESIC) 6-08 } patches [facility] 12 mcg/hr 10:57: onto the Medi ricki patch 05 skin every Center third day. clopidogrel 0 Yes 75mg QD Take [address] [facility] (PLAVIX) 75 6-08 by mouth Luke s mg tablet 10:57: daily. Medica l 05 Center aspirin 325 2015-0 Yes 325mg QD Take [address] MG tablet 6-08 mg by [facility] 10:57: mouth Medical 05 daily. [place] pantoprazol 2016-0 Yes 40mg QD Take [address] [facility] e 6-08 by mouth [facility] (PROTONIX) 10:57: daily. Medic al 40 MG 05 [place] tablet pitavastati 2016-0 Yes 4mg QD Take [address] n (LIVALO) 6-08 by mouth [facility] 4 mg Tab 10:57: daily. Medical 05 Center tamsulosin 2015-0 Yes .4mg QD Take 0.[address] (FLOMAX) 6-08 mg by [facility] 0.4 mg Cp24 10:57: mouth Medic al 24 hr 05 daily. Center capsule fenofibric 20160 Yes 135mg QD Take [address] acid, 6-08 mg by [facility]ukes choline, 10:57: mouth Medical 135 mg 05 daily. Center capsule dutasteride 20160 Yes .5mg QD Take 0.[address] (AVODART) 6-08 mg by [facility] 0.5 mg 10:57: mouth Medical capsule 05 daily. [place] allopurinol Yes 300mg QD Take [address] (ZYLOPRIM) 6-08 mg by [facility] 300 MG 10:57: mouth Medical tablet 05 daily. Center gabapentin 0 Yes 300mg Q.5D Take [address] (NEURONTIN) 6-08 mg by [facility] 300 MG 10:57: mouth 2 Medical capsule 05 (two) Center times daily. albuterol-i 0 Yes 2{puff} Inhale [address] pratropium 6-08 puffs by [facility] (COMBIVENT) 10:57: mouth via M edical 18103 05 inhaler Center mcg/actuati every 6 on inhaler (six) hours as needed for Wheezing. metoprolol 2016-0 Yes 25mg QD Take [address] (LOPRESSOR) 6-08 by mouth Luke s 25 MG 10:57: daily . Medical tablet 05 [place] fentaNYL 0 Yes 2{patch Place [address] [facility] (DURAGESIC) 6-08 } patches [facility] 12 mcg/hr 10:57: onto the Medi ricki patch 05 skin every Center third day. clopidogrel 2016-0 Yes 75mg QD Take [address] [facility] (PLAVIX) 75 6-08 by mouth Luke s mg tablet 10:57: daily. Medica l 05 Center Immunizations Ordered Filled Date Status Comments Source Immunization Name Immunization Name SARS-COV-2 COVID-19 2020-12-13 Completed Unive rsity of PFIZER VACCINE 00:00:00 [facility] SARS-COV-2 COVID-19 2020-12-13 Completed Unive rsity of PFIZER VACCINE 00:00:00 [facility] SARS-COV-2 COVID-19 2020-12-13 Completed Unive rsity of PFIZER VACCINE 00:00:00 [facility] SARS-COV-2 COVID-19 2020-12-13 Completed Unive rsity of PFIZER VACCINE 00:00:00 [facility] Branch SARS-COV-2 COVID-19 2020-12-13 Completed Unive rsity of PFIZER VACCINE 00:00:00 [facility] SARS-COV-2 COVID-19 2020-12-13 Completed Unive rsity of PFIZER VACCINE 00:00:00 [facility] SARS-COV-2 COVID-19 2020-12-13 Completed Unive rsity of PFIZER VACCINE 00:00:00 [facility] SARS-COV-2 COVID-19 2020-12-13 Completed Unive rsity of PFIZER VACCINE 00:00:00 [facility] SARS-COV-2 COVID-19 2020-12-13 Completed Unive rsity of PFIZER VACCINE 00:00:00 [facility] SARS-COV-2 COVID-19 2020-12-13 Completed Unive rsity of PFIZER VACCINE 00:00:00 [facility] SARS-COV-2 COVID-19 2020-12-13 Completed Unive rsity of PFIZER VACCINE 00:00:00 [facility] SARS-COV-2 COVID-19 2020-12-13 Completed Unive rsity of PFIZER VACCINE 00:00:00 [facility] SARS-COV-2 COVID-19 2020-12-13 Completed Unive rsity of PFIZER VACCINE 00:00:00 [facility] SARS-COV-2 COVID-19 2020-12-13 Completed Unive rsity of PFIZER VACCINE 00:00:00 [facility] [facility] SARS-COV-2 COVID-19 2020-12-13 Completed Unive rsity of PFIZER VACCINE 00:00:00 [facility] SARS-COV-2 COVID-19 2020-12-13 Completed Unive rsity of PFIZER VACCINE 00:00:00 [place] [facility] SARS-COV-2 COVID-19 2020-12-13 Completed Unive rsity of PFIZER VACCINE 00:00:00 [facility] SARS-COV-2 COVID-19 2020-12-13 Completed Unive rsity of PFIZER VACCINE 00:00:00 [facility] SARS-COV-2 COVID-19 2020-12-13 Completed Unive rsity of PFIZER VACCINE 00:00:00 [facility] SARS-COV-2 COVID-19 2020-12-13 Completed Unive rsity of PFIZER VACCINE 00:00:00 [facility] SARS-COV-2 COVID-19 2020-12-13 Completed Unive rsity of PFIZER VACCINE 00:00:00 [facility] SARS-COV-2 COVID-19 2020-12-13 Completed Unive rsity of PFIZER VACCINE 00:00:00 [facility] SARS-COV-2 COVID-19 2020-11-21 Completed Unive rsity of PFIZER VACCINE 00:00:00 [facility] SARS-COV-2 COVID-19 2020-11-21 Completed Unive rsity of PFIZER VACCINE 00:00:00 [facility] SARS-COV-2 COVID-19 2020-11-21 Completed Unive rsity of PFIZER VACCINE 00:00:00 [facility] SARS-COV-2 COVID-19 2020-11-21 Completed Unive rsity of PFIZER VACCINE 00:00:00 [facility] SARS-COV-2 COVID-19 2020-11-21 Completed Unive rsity of PFIZER VACCINE 00:00:00 [facility] SARS-COV-2 COVID-19 2020-11-21 Completed Unive rsity of PFIZER VACCINE 00:00:00 [facility] SARS-COV-2 COVID-19 2020-11-21 Completed Unive rsity of PFIZER VACCINE 00:00:00 [facility] SARS-COV-2 COVID-19 2020-11-21 Completed Unive rsity of PFIZER VACCINE 00:00:00 [facility] SARS-COV-2 COVID-19 2020-11-21 Completed Unive rsity of PFIZER VACCINE 00:00:00 [facility] SARS-COV-2 COVID-19 2020-11-21 Completed Unive rsity of PFIZER VACCINE 00:00:00 [facility] SARS-COV-2 COVID-19 2020-11-21 Completed Unive rsity of PFIZER VACCINE 00:00:00 [facility] SARS-COV-2 COVID-19 2020-11-21 Completed Unive rsity of PFIZER VACCINE 00:00:00 [facility] SARS-COV-2 COVID-19 2020-11-21 Completed Unive rsity of PFIZER VACCINE 00:00:00 [facility] SARS-COV-2 COVID-19 2020-11-21 Completed Unive rsity of PFIZER VACCINE 00:00:00 [facility] SARS-COV-2 COVID-19 2020-11-21 Completed Unive rsity of PFIZER VACCINE 00:00:00 [facility] SARS-COV-2 COVID-19 2020-11-21 Completed Unive rsity of PFIZER VACCINE 00:00:00 [facility] SARS-COV-2 COVID-19 2020-11-21 Completed Unive rsity of PFIZER VACCINE 00:00:00 [facility] SARS-COV-2 COVID-19 2020-11-21 Completed Unive rsity of PFIZER VACCINE 00:00:00 [facility] SARS-COV-2 COVID-19 2020-11-21 Completed Unive rsity of PFIZER VACCINE 00:00:00 [facility] SARS-COV-2 COVID-19 2020-11-21 Completed Unive rsity of PFIZER VACCINE 00:00:00 [facility] SARS-COV-2 COVID-19 2020-11-21 Completed Unive rsity of PFIZER VACCINE 00:00:00 [facility] SARS-COV-2 COVID-19 2020-11-21 Completed Unive rsity of PFIZER VACCINE 00:00:00 [facility] SARS-COV-2 COVID-19 Unknown Completed Unive rsity of PFIZER VACCINE [facility] SARS-COV-2 COVID-19 Unknown Completed Unive rsity of PFIZER VACCINE [facility] SARS-COV-2 COVID-19 Unknown Completed Unive rsity of PFIZER VACCINE [facility] SARS-COV-2 COVID-19 Unknown Completed Unive rsity of PFIZER VACCINE [facility] SARS-COV-2 COVID-19 Unknown Completed Unive rsity of PFIZER VACCINE [facility] SARS-COV-2 COVID-19 Unknown Completed Unive rsity of PFIZER VACCINE [facility] SARS-COV-2 COVID-19 Unknown Completed Unive rsity of PFIZER VACCINE [facility] SARS-COV-2 COVID-19 Unknown Completed Unive rsity of PFIZER VACCINE [facility] Vital Signs Vital Name Observation Time Observation Value Comments Source Systolic blood 2022-12-28 15:30:00 127 mm[Hg] Univer sity of pressure [facility] Diastolic blood 2022-12-28 15:30:00 63 mm[Hg] Unive rsity of pressure [facility] Heart rate 2022-12-28 15:30:00 70 /min Universi ty of [facility] Oxygen saturation 2022-12-28 15:30:00 95 /min Uni versity of in Arterial blood [facility] by Pulse oximetry Branch Respiratory rate 2022-12-28 15:27:00 21 /min Univ ersity of [facility] Body height 2022-12-28 15:27:00 167.6 cm [facility] Body weight 2022-12-28 15:27:00 94.892 kg [facility] [place] [facility] BMI 2022-12-28 15:27:00 33.77 kg/m2 [facility] [place] [facility] Systolic blood 2022-07-10 22:40:00 142 mm[Hg] Univer sity of pressure [facility] Diastolic blood 2022-07-10 22:40:00 75 mm[Hg] Unive rsity of pressure [facility] Heart rate 2022-07-10 22:40:00 71 /min [facility] [place] [facility] Respiratory rate 2022-07-10 22:40:00 21 /min Univ ersity of [facility] Oxygen saturation 2022-07-10 22:40:00 91 /min Uni versity of in Arterial blood [facility] by Pulse oximetry Branch Body temperature 2022-07-10 21:09:00 36.5 Caridad Univ ersity of [facility] Body height 2022-07-05 16:00:00 167.6 cm [facility] [place] [facility] [place] Body weight 2022-07-05 16:00:00 90.719 kg [facility] [place] [facility] BMI 2022-07-05 16:00:00 32.28 kg/m2 [facility] Systolic blood 2022-07-10 21:15:00 132 mm[Hg] Univer sity of pressure [facility] Diastolic blood 2022-07-10 21:15:00 62 mm[Hg] Unive rsity of pressure [facility] Respiratory rate 2022-07-10 21:15:00 20 /min Univ ers[facility] Oxygen saturation 2022-07-10 21:15:00 91 /min Uni versity of in Arterial blood [place] [facility] Pulse oximetry [facility] Heart rate 2022-07-10 21:10:00 71 /min [facility] Body temperature 2022-07-10 21:09:00 36.5 Caridad Univ ers[facility] Body height 2022-07-05 16:00:00 167.6 cm [facility] Body weight 2022-07-05 16:00:00 90.719 kg [facility] BMI 2022-07-05 16:00:00 32.28 kg/m2 [facility] Systolic blood 2022-07-03 20:47:00 113 mm[Hg] Univer sity of pressure [facility] Diastolic blood 2022-07-03 20:47:00 56 mm[Hg] Unive rsity of pressure [facility] Heart rate 2022-07-03 20:47:00 92 /min [facility] Body temperature 2022-07-03 20:47:00 36.22 Caridad [facility] Respiratory rate 2022-07-03 20:47:00 18 /min Univ [facility] Body height 2022-07-03 20:47:00 167.6 cm [facility] Body weight 2022-07-03 20:47:00 90.946 kg [facility] BMI 2022-07-03 20:47:00 32.36 kg/m2 [facility] Oxygen saturation 2022-07-03 20:47:00 94 /min pt is on 3L Uni versity of in Arterial blood [place] [facility] Pulse oximetry [facility] Systolic blood 2022-06-28 14:46:00 156 mm[Hg] Univer sity of pressure [facility] Diastolic blood 2022-06-28 14:46:00 70 mm[Hg] Unive rsity of pressure [facility] Heart rate 2022-06-28 14:45:00 66 /min [facility] Body temperature 2022-06-28 14:45:00 36.83 Caridad [facility] Respiratory rate 2022-06-28 14:45:00 18 /min Univ [facility] Body height 2022-06-28 14:45:00 167.6 cm [facility] Body weight 2022-06-28 14:45:00 87.544 kg [facility] BMI 2022-06-28 14:45:00 31.15 kg/m2 [facility] Oxygen saturation 2022-06-28 14:45:00 96 /min Uni versity of in Arterial blood [facility] by Pulse oximetry Branch Heart rate 2021-03-16 17:31:00 56 /min [facility] Respiratory rate 2021-03-16 17:31:00 16 /min Univ [facility] Oxygen saturation 2021-03-16 17:31:00 94 /min Uni versity of in Arterial blood [facility] by Pulse oximetry Branch Systolic blood 2021-03-16 17:27:00 187 mm[Hg] Univer sity of pressure [facility] Diastolic blood 2021-03-16 17:27:00 84 mm[Hg] Unive rsity of [facility] Body temperature 2021-03-16 17:13:00 36.44 [...] ersity of [place] [facility] Oxygen saturation 2021-03-16 14:41:00 94 /min Uni versity of in Arterial blood [place] [facility] P[facility] oxim[facility] Body height 2021-03-09 20:58:00 167.6 cm [facility] Body weight 2021-03-09 20:58:00 89.8 kg [facility] BMI 2021-03-09 20:58:00 31.95 kg/m2 [facility] Heart rate 2021-02-23 15:32:00 59 /min [facility] Oxygen saturation 2021-02-23 15:32:00 95 /min Uni versity of in Arterial blood [place] [facility] by Pulse oximetry Branch Systolic blood 2021-02-23 15:29:00 176 mm[Hg] Univer sity of pressure [facility] Diastolic blood 2021-02-23 15:29:00 85 mm[Hg] Unive rsity of pressure [facility] Respiratory rate 2021-02-23 15:29:00 20 /min Univ [facility] Body temperature 2021-02-23 15:16:00 36.22 Caridad [facility] Body height 2021-02-20 19:08:00 167.6 cm [facility] Body weight 2021-02-20 19:08:00 89.8 kg [facility] BMI 2021-02-20 19:08:00 31.97 kg/m2 [facility] Systolic blood 2021-02-23 13:11:00 160 mm[Hg] Univer [facility]ity of pressure [facility] Diastolic blood 2021-02-23 13:11:00 70 mm[Hg] Unive rsity of pressure [facility] Heart rate 2021-02-23 13:11:00 63 /min [facility] Body temperature 2021-02-23 13:11:00 37.06 Caridad Univ [facility] [place] [facility] Respiratory rate 2021-02-23 13:11:00 19 /min [facility] Oxygen saturation 2021-02-23 13:11:00 97 /min Uni versity of in Arterial blood [facility] by Pulse oximetry Branch Body height 2021-02-20 19:08:00 167.6 cm [facility] Body weight 2021-02-20 19:08:00 89.8 kg [facility] BMI 2021-02-20 19:08:00 31.97 kg/m2 [facility] Procedures Procedure Date / Time Performing Source Performed Clinician MEDICAL RELEASE/CLEARANCE 2022-08-29 Doctor Unassigned, [facility] [place] FORMS 05:01:00 [facility] UMBILICAL HERNIORRHAPHY 2022-07-10 Kimberley Christy [facility] 18:38:00 Medical Branch LAPAROSCOPIC INTRAPERITONEAL 2022-07-10 Kimberley Christy [facility] CATHETER PLACEMENT 18:38:00 Medical [facility] h DAY SURGERY - ADC 2022-07-10 Doctor Unassigned, [facility] 05:01:00 [facility] NOTICE OF PRIVACY PRACTICES 2022-07-06 Doctor Unassigned, [facility] 21:05:09 [facility] NOTICE OF PRIVACY PRACTICES 2022-07-06 Doctor Unassigned, [facility] 21:05:09 [facility] CONSENT/REFUSAL FOR DIAGNOSIS 2022-07-06 Doctor Unassigned, [facility] AND TREATMENT 21:04:40 [facility] CONSENT/REFUSAL FOR DIAGNOSIS 2022-07-06 Doctor Unassigned, [facility] AND TREATMENT 21:04:40 [facility] ASSIGNMENT OF BENEFITS 2022-07-06 Doctor Unassigned, [facility] 21:04:16 [facility] ASSIGNMENT OF BENEFITS 2022-07-06 Doctor Unassigned, [facility] 21:04:16 [facility] MEDICAL RELEASE/CLEARANCE 2022-07-02 Doctor Unassigned, [facility] [place] FORMS 05:01:00 [facility] CONSENT/REFUSAL FOR DIAGNOSIS 2022-06-28 Doctor Unassigned, [facility] AND TREATMENT 13:52:58 [facility] REFERRAL- REQUEST/RESPONSE 2022-06-13 Doctor Unassigned, [facility] 06:01:00 [facility] HEPATITIS B SURFACE ANTIBODY 2021-11-[address] [facility] 02:26:00 [facility] HEPATITIS B CORE ANTIBODY, 2021-11-09 [facility] 02:26:00 [facility] HEPATITIS B SURFACE ANTIGEN 2021-11-[address] [facility] 02:26:00 [facility] HEPATITIS C ANTIBODY 2021-11-[address] [facility] [facility] 02:26:00 [facility] PHACOEMULSIFICATION OF 2021-03-16 Johnathon [facility] CATARACT WITH INTRAOCULAR 16:18:00 [facility] LENS IMPLANT ASSIGNMENT OF BENEFITS 2021-03-13 Doctor Unassigned, [facility] 15:20:07 Likely [facility] PHACOEMULSIFICATION OF 2021-02-23 Johnathon, [facility] CATARACT WITH INTRAOCULAR 14:30:00 [facility] LENS IMPLANT CBC WITH DIFF 2021-02-20 Johnathon [facility] xas 14:56:00 [facility] COVID-19 (ID NOW RAPID [facility] 14:50:00 [facility] Encounters Start End Encounter Admission Attending Care Care Encounter Source Date/Time Date/Time Type Type Clinicians Facility Department ID 2022-12-28 2022-12-28 [facility] [id number] [id number] Univers 11:00:00 11:00:00 Visit Paul DUEÑAS 350.1.13.10 itandria [facility] [place]7.2.[place] [id number] Or dical NAL 059 [facility] 2022-12-28 2022-12-28 [facility] [id number] Univers 11:00:00 10:57:11 PA[address] o f [facility] 2022-12-24 2022-12-24 [facility] [id number] Univers 00:00:00 00:00:00 Paul DUEÑAS 350.1.13.10 itandria [facility] 4[place] [id number] Or dical NAL 059 [facility] 2022-12-12 2022-12-12 Telephone [facility] [id number] Univers 00:00:00 00:00:00 Paul LEANA 350.1.13.10 ity [place] [id number] Or dicnm NAL 9 [facility] 2022-08-29 2022-08-29 Telephone [facility] [id number] Univers 00:00:00 00:00:00 Qiafaragregg LEANA 350.1.13.10 [place]y [place] [id number] [address] 2022-08-29 2022-08-29 Orders Doctor MIKE 1.2.840.114 [id number] Univers 00:00:00 00:00:00 Only Unassigned, SON 350.1.13.10 ity of [facility] 4.2.7.2.686 Jeremi as [id number] [address] 2022-08-28 2022-08-28 Telephone [facility] [id number] Univers 00:00:00 00:00:00 Robsonfaragregg LEANA 350.1.13.10 [place]y [place] [id number] Or dicnm NAL [address] [place] [address] 2022-08-02 2022-08-02 Outpatient R WESTLEY [facility] [id number] Univers 11:30:00 11:30:00 KIMBERLEY jo [facility] 2022-07-10 2022-07-10 [facility] SHAHID [id number] Univers 11:03:00 17:55:00 KIMBERLEY jo [facility] 2022-07-10 2022-07-10 [facility] 1.2.840.114 [id number] Univers 11:03:00 17:55:00 Encounter Kimberley DUEÑAS 350.1.13.10 [place] [id number] [facility] 071 Branch 2022-07-10 2022-07-10 [facility] [id number] Univers 12:50:00 16:15:00 Kimberley LEANA 350.1.13.10 i [place] [id number] [facility] 020 Branch 2022-07-10 2022-07-[address] [facility] 1.2.840.114 [id number] Univers 00:00:00 00:00:00 Kimberley LEANA 350.1.13.10 i ty [place] [id number] Or dical [facility] 188 [facility] 2022-07-10 2022-07-10 Orders Doctor MIKE 1.2.840.114 [id number] Univers 00:00:00 00:00:00 Only Unassigned, SON 350.1.13.10 ity of Likely [facility] 4.2.7.2.686 Jeremi as [id number] [facility] 009 Branch 2022-07-06 2022-07-06 Laboratory Only, Adc Test [facility] 1.2.840. [id number] Univers 10:00:00 10:15:00 Only Kimberley Christy 350.1.13.10 ity of [facility] 4.2.7.2.[place] [id number] [facility] 353 Branch 2022-07-06 2022-07-06 Outpatient R WESTLEY [facility] [id number] Univers 10:00:00 10:00:[address] [facility] 2022-07-03 2022-07-03 Outpatient R ALLEN [facility] [id number] Univers 15:40:00 16:19:04 PA[address] jo o f [facility] 2022-07-03 2022-07-03 [facility] 1.2.840.114 [id number] Univers 15:40:00 16:19:04 Visit Paul DUEÑAS 350.1.13.10 [place]y [place] [id number] Or dical NAL 059 [facility] 2022-07-02 2022-07-02 Orders Doctor MIKE 1.2.840.114 [id number] Univers 00:00:00 00:00:00 Only Unassigned, SON 350.1.13.10 ity of Likely HOSPITAL 4.2.7.2.686 Jeremi as [id number] [address] 2022-06-28 2022-06-28 [facility] [id number] Univers 09:00:00 11:39:41 KIMBERLEY jo [facility] 2022-06-28 2022-06-28 [facility] [id number] Univers 09:00:00 11:39:41 Visit Kimberley DUEÑAS 350.1.13.10 i ty [place] [id number] Or dical NAL 188 [facility] 2022-06-28 2022-06-28 Orders Doctor MIKE 1.2.840.114 [id number] Univers 00:00:00 00:00:00 Only Unassigned, SON 350.1.13.10 ity of Likely HOSPITAL 4.2.7.2.686 Jeremi as [id number] [address] 2022-06-21 2022-06-21 [facility] [id number] Univers 09:00:00 09:00:00 KIMBERLEY jo [facility] 2022-06-13 2022-06-13 Orders Doctor MCKEON 1.2.840.114 [id number] Univers 00:00:00 00:00:00 Only Unassigned, SON 350.1.13.10 ity of Likely HOSPITAL 4.2.7.2.686 Jeremi as [id number] [address] 2022-04-30 2022-04-30 [facility] [id number] Univers 00:00:00 00:00:00 JORGE L ity o f [facility] 2021-11-092021-11-09 [facility] [id number] 00:00:00 00:00:00 Garcia Kennedy [facility] 2021-03-16 2021-03-16 [facility] OPH [id number] Univers 08:29:00 11:46:00 TRES [facility] 2021-03-16 2021-03-16 [facility] 1.2.840.114 [id number] Univers 08:29:00 11:46:00 Encounter Tres DUEÑAS 350.1.13.10 ity of [place] [id number] [address] 2021-03-16 2021-03-16 [facility] 1.2.840.114 [id number] Univers 09:54:00 10:30:00 Tres DUEÑAS 350.1.13.10 i ty of [place]2.[place] [id number] [facility] 020 Branch 2021-03-13 2021-03-13 Orders Doctor MIKE 1.2.840.114 [id number] Univers 00:00:00 00:00:00 Only Unassigned, SON 350.1.13.10 ity of Likely [facility] 4.2.7.2.686 Jeremi as [id number] [place] [address] Branch 2021-02-23 2021-02-23 [facility]PH [id number] Univers 07:00:00 09:45:[address] [facility] 2021-02-23 2021-02-23 [facility] 1.2.840.114 [id number] Univers 07:00:00 09:45:00 Encounter Tres DUEÑAS 350.1.13.10 ity of [place] [id number] [address] 2021-02-23 2021-02-23 Surgery [facility] 1.2.840.114 [id number] Univers 08:37:00 09:11:00 Tres DUEÑAS 350.1.13.10 i ty of Mir LUCASVIGNESH 4[place].2.[place] [id number] [facility] CENTER 020 Branch 2021-02-20 2021-02-20 [employer]o, Adc Lab Main [facility] 1.2.8 [id number] Univers 08:35:12 08:50:12 Visit Johnathon Tres Hester LEANA 350.1.1 3.10 ity of [place].2.[place] [id number] Or dical NAL 353 Branch [facility] 2021-02-20 2021-02-20 Outpatient R JOHNATHON, [facility] [id number] Univers 08:45:00 08:45:00 TRES jo [facility] Results Test Description Test Time Test Comments Results Result Comments Source Hepatitis B surface antibody 2021-11-09 11:07:39 Test Item Value Reference Range Interpretation Comme nts Hep B S Ab (test code = <8.0 See_Comment [Au tomated message] The 46703-4) system which ge nerated this result transmit connie reference range : <8.0 mIU/mL. The ref erence range was not used to interpret this result as normal/abnormal . BERT (test code = BERT) [employer]visor [employer] ID - LESLIE M Lab Interpretation (test Normal code = 60690-6) [facility] B surface [id number] 11:07:39 Test Item Value Reference Range Interpretation Comments Hep B S Ab (test code <8.0 See_Comment [Auto mated = 05146-3) message] The system which generated this result transmit connie reference range : <8.0 mIU/mL. Th e reference range was not used to interpret this result as normal/abnormal . BERT (test code = BERT) [employer] ID - LESLIE M Lab Interpretation Normal (test code = 83671-6) [facility] B surface [id number] 11:07:39 Test Item Value Reference Range Interpretation Comments Hep B S Ab (test code <8.0 See_Comment [Auto mated = 13038-5) message] The system which generated this result transmit connie reference range : <8.0 mIU/mL. Th e reference range was not used to interpret this result as normal/abnormal . BERT (test code = BERT) [employer] ID - LESLIE M Lab Interpretation Normal (test code = 45603-6) [facility] B SURFACE [id number] 11:07:39 Test Item Value Reference Range Interpretation Comments HEPATITIS B SURFACE ANTIBODY < mIU/mL <8.0 (BEAKER) (test code = 647) [employer] ID - LESLIE MHepatitis C [id number] 11:00:00 Test Item Value Reference Range Interpretation Comments Hepatitis C Ab (test Nonreactive Nonreactive code = 58557-0) BERT (test code = BERT) [employer]visor [employer] ID - LESLIE M Lab Interpretation (test Normal code = 82503-9) [facility] C [id number] 11:00:00 Test Item Value Reference Range Interpretation Comments Hepatitis C Ab (test Nonreactive Nonreactive code = 79202-3) BERT (test code = BERT) [employer] ID - LESLIE M Lab Interpretation (test Normal code = 76572-9) [facility] C [id number] 11:00:00 Test Item Value Reference Range Interpretation Comments Hepatitis C Ab (test Nonreactive Nonreactive code = 77331-5) BERT (test code = BERT) [employer] ID - LESLIE M Lab Interpretation (test Normal code = 43030-5) [facility] [id number] 11:00:00 Test Item Value Reference Range Interpretation Comments HEPATITIS C ANTIBODY (BEAKER) Nonreactive Nonreactive (test code = 367) [employer] ID - LESLIE MHepatitis B core antibody, [id number] 10:59:55 Test Item Value Reference Range Interpretation Comments Hep B C IgM (test code = Nonreactive Nonreactive 08169-7) BERT (test code = BERT) [employer] - LESLIE M Lab Interpretation (test Normal code = 95908-1) [facility], [id number] 10:59:55 Test Item Value Reference Range Interpretation Comments Hep B C IgM (test code = Nonreactive Nonreactive 19482-8) BERT (test code = BERT) [employer] - LESLIE M Lab Interpretation (test Normal code = 97838-6) [facility] core antibody, [id number] 10:59:55 Test Item Value Reference Range Interpretation Comments Hep B C IgM (test code = Nonreactive Nonreactive 92555-5) BERT (test code = BERT) [employer] - LESLIE M Lab Interpretation (test Normal code = 84473-8) [facility] B CORE ANTIBODY, [id number] 10:59:55 Test Item Value Reference Range Interpretation Comments HEPATITIS B CORE IGM ANTIBODY Nonreactive Nonreactive (BEAKER) (test code = 645) [employer] - LESLIE MHepatitis B surface [id number] 10:59:54 Test Item Value Reference Range Interpretation Comments Hepatitis B surface Nonreactive Nonreactive antigen (test code = 5195-3) BERT (test code = BERT) Specimen is considered negative for HBsAg. Lab Interpretation (test Normal code = 45099-0) [facility] surface [id number] 10:59:54 Test Item Value Reference Range Interpretation Comments Hepatitis B surface Nonreactive Nonreactive antigen (test code = 5195-3) BERT (test code = BERT) Specimen is considered negative for HBsAg. Lab Interpretation (test Normal code = 16816-3) [facility] B surface [id number] 10:59:54 Test Item Value Reference Range Interpretation Comments Hepatitis B surface Nonreactive Nonreactive antigen (test code = 5195-3) BERT (test code = BERT) Specimen is considered negative for HBsAg. Lab Interpretation (test Normal code = 65279-3) [facility] B SURFACE [id number] 10:59:54 Test Item Value Reference Range Interpretation Comments HEPATITIS B SURFACE ANTIGEN (2) Nonreactive Nonreactive (BEAKER) (test code = 2585) Specimen is considered negative for HBsAg.CBC WITH [id number] 15:01:08 Test Item Value Reference Range Interpretation Comments WBC (test code = See_Comment [Automated 0890-2) message] The sy stem which generated this [...] (test code = 56.7 fL 38.5-51.6 H 53666-0) RDW-CV (test code = 15.7 % 12.1-15.4 H 788-0) PLT (test code = See_Comment [Automated 777-3) message] The sy stem which generated this result transmitted reference range : 150 - 328 10*3/ ?L. The reference r joaquin was not used to interpret this result as normal/abnormal . MPV (test code = 10.8 fL 9.8-13.0 69533-0) NRBC/100 WBC (test See_Comment [Automat ed code = [id number]) message] The system which generated this result transmitted reference range : 0.0 - 10.0 /100 WBCs. The refer ence range was not u sed to interpret th is result as normal/abnormal . NRBC x10^3 (test code <0.01 See_Comment [Auto mated = [id number]) message] The s ystem which generated this result transmitted reference range : 10*3/?L. The reference range was not used to interpret this result as normal/abnormal . GRAN MAT (NEUT) % 76.8 % (test code = 770-8) IMM GRAN % (test code 0.80 % = 9723164355) LYMPH % (test code = 16.0 % 736-9) MONO % (test code = 5.8 % 5905-5) EOS % (test code = 0.0 % 713-8) BASO % (test code = 0.6 % 706-2) GRAN MAT x10^3(ANC) 5.54 10*3/uL 1.99-6.95 (test code = 0719930556) IMM GRAN x10^3 (test 0.06 10*3/uL 0.00-0.06 code = 1838983435) LYMPH x10^3 (test code 1.15 10*3/uL 1.09-3.23 = 731-0) MONO x10^3 (test code 0.42 10*3/uL 0.36-1.02 = 742-7) EOS x10^3 (test code = <0.03 0.06-0.53 L 711-2) BASO x10^3 (test code 0.04 10*3/uL 0.01-0.09 = 704-7) Lab Interpretation Abnormal (test code = 89927-5) [facility], [id number] 12:20:00Addendum BeginsREPORT STATUS:A Addendum: I have reviewed the nonvascular features of this examination concur with Dr. Stewart's report. There is been interval growth in the size of the largest cyst in the left kidney from 5.7 to 8.1 cm. The other renal lesions are unchanged in sizeand configuration. Signed: Mehdi Boone MDReport Verified Date/Time: 10/22/2018 12:20:45 Reading Location: [place] [address] Angio Body Reading RoomAddendum EndsFINAL REPORT CT of the abdomen and pelvis, without contrast, Oct 24 INDICATION: This is a 73 year old male with history ofabdominal aortic aneurysm status post endovascular exclusion. Patient presents for followup evaluation. TECHNIQUE: Spiral acquisition was performed with mild intravenous contrast administration using [facility] multidetector scanner. Multi-planar 3-D volume- rendering reconstruction [...] and the right. Prior addendum by the Casualty Claim Adjuster Radiologist, the calcification could be related to [...] dictated regarding the non-vascular findings by the Casualty Claim Adjuster Radiologists. Signed: Fausto Stewart MDReport Verified Date/Time: 10/22/2018 10:10:53 Reading Location: [place] [address] Cardiology MRI
[2023-01-11 11:21] LABS: Absolute Lymphocytes (CBC) 0.6 K/uL (0.7-4.9); Lymphocytes % 5.4 % (15.3-44.8); MCV 100.5 fL (80-100); MPV 9.7 fL (7.6-11.3); Platelets 129 thou/uL (152-406); RBC Red Blood Cell Count 2.89 M/uL (4.33-5.43)
[2023-01-11 11:23] LABS: Protime INR 1.09
[2023-01-11] MEDS ORDERED: NA CHLORIDE 0.9% 500 ML ONE (11:27)
[2023-01-11 11:44] LABS: Albumin 2.5 g/dL (3.4-5.0); Bilirubin Total 0.5 mg/dL (0.2-1.0); Potassium 4.9 mEq/L (3.5-5.1); Protein, Total 6.8 g/dL (6.4-8.2); Thyroid Stimulating Hormone 0.674 uIU/mL (0.358-3.740)
--- NOTE | 2023-01-11 11:55 | RAD REPORT ---
EXAM DESCRIPTION: RADChest Single View01/11/2023 11:46 am CLINICAL HISTORY: rigors COMPARISON: Chest Single View dated 05/21/2022; Chest Single View dated 05/20/2022; Chest Single View dated 05/18/2022; Chest Single View dated 04/30/2022 TECHNIQUE: Portable AP view of the chest. FINDINGS: The lungs are clear. Right basilar atelectasis. No pneumothorax or effusion. The cardiomed iastinal contours are unremarkable. Spinal stimulator electrodes in place. IMPRESSION: No acute cardiopulmonary process.
--- NOTE | 2023-01-11 11:56 | RAD REPORT ---
EXAM DESCRIPTION: RAD - Foot Left 3 View - 01/11/2023 11:45 am CLINICAL HISTORY: infection COMPARISON: No comparisons TECHNIQUE: Left foot, 3 views. FINDINGS: No fracture, dislocation or periosteal reaction. Moderate calcaneal spur. Scattered mild d egenerative changes along the forefoot. No air or foreign body in the soft tissues. IMPRESSION: No acute osseus abnormality.
--- NOTE | 2023-01-11 13:20 | EDPHYS ---
Physician Documentation [facility] Name: Enrrique Vaughn Age: 77 yrs Sex: Male : 1945 Arrival Date: 01/11/2023 Time: 10:02 Bed 4 Private MD: ED Physician Kartik Ortiz HPI: 01/11 12:26 This 77 yrs old Male presents to ER via Wheelchair with complaints of Dehydrated, rt shaking, Weakness. 12:26 Patient had an angioplasty procedure performed on his leg by Dr. Ford yesterday. He rt states that he was groggy from sedation, was feeling weak and shaky some confusion since then. Reports that symptoms persisted till this morning. Reports some modest improvement still feels somewhat weak and shaky. Denies any confusion. Denies other acute complaints at this time, symptoms are moderate in severity, no other aggravating or alleviating factors.. Historical: - Allergies: 10:15 atorvastatin calcium; hb 10:15 Lipitor; hb 10:15 Niacin; hb 10:15 Niaspan; hb 10:15 Paxil; hb 10:15 Tape; hb - PMHx: 10:15 COPD; Hypertension; Prostate Cancer; Gout; kidney failure stage 5; hb - Immunization history:: Adult Immunizations up to date. - Social history:: Smoking status: . - Family history:: not pertinent. ROS: 12:26 Constitutional: Negative for fever, chills, and weight loss, Cardiovascular: Negative rt for chest pain, palpitations, and edema, Respiratory: Negative for shortness of breath, cough, wheezing, and pleuritic chest pain, Abdomen/GI: Negative for abdominal pain, nausea, vomiting, diarrhea, and constipation, MS/Extremity: Negative for injury and deformity, Skin: Negative for injury, rash, and discoloration, Psych: Negative for depression, anxiety, suicide ideation, homicidal ideation, and hallucinations, 12:26 Neuro: Positive for weakness, Negative for altered mental status, Exam: 12:26 Constitutional: This is a well developed, well nourished patient who is awake, alert, rt and in no acute distress. Head/Face: Normocephalic, atraumatic. Chest/axilla: Normal chest wall appearance and motion. Nontender with no deformity. No lesions are appreciated. Cardiovascular: Regular rate and rhythm with a normal S1 and S2. No gallops, murmurs, or rubs. Normal PMI, no JVD. No pulse deficits. Respiratory: Lungs have equal breath sounds bilaterally, clear to auscultation and percussion. No rales, rhonchi or wheezes noted. No increased work of breathing, no retractions or nasal flaring. Abdomen/GI: Soft, non-tender, with normal bowel sounds. No distension or tympany. No guarding or rebound. No evidence of tenderness throughout. Neuro: Awake and alert, GCS 15, oriented to person, place, time, and situation. Cranial nerves II-XII grossly intact. Motor strength 5/5 in all extremities. Sensory grossly intact. Cerebellar exam normal. Normal gait. Psych: Awake, alert, with orientation to person, place and time. Behavior, mood, and affect are within normal limits. 12:26 ECG was reviewed by the Attending Physician. 12:26 Musculoskeletal/extremity: Erythema noted to the left foot, no appreciable warmth, pulses are intact. No other swelling, deformity, erythema. Vital Signs: 10:12 BP 121 / 57; Pulse 68; Resp 17; Temp 98.3(TE); Pulse Ox 94% on R/A; Weight 93.89 kg; hb Height 5 ft. 6 in. ; Pain 0/10; 11:00 BP 154 / 68; Pulse 65; Resp 18; Pulse Ox 94% on R/A; ko1 13:13 BP 138 / 66; Pulse 67; Resp 18; Pulse Ox 100% ; ko1 10:12 Body Mass Index 33.41 (93.89 kg, 167.64 cm) hb 10:12 Pain Scale: Adult hb MDM: 10:22 Patient medically screened. rt 13:20 Data reviewed: vital signs, nurses notes, lab test result(s), EKG, radiologic studies. rt Consideration of Admission/Observation Patient was admitted/placed on observation. Management of patient was discussed with the following: Electrical Solderer: Discussed with patient's interventional radiology. Primary Care Provider: Agrees to admit. I considered the following discharge prescriptions or medication management in the emergency department Medications were administered in the Emergency Department. See MAR. Independent interpretation of the following test(s) in the Emergency Department X-Ray: My interpretation is No consolidation seen on interpretation of x-ray images. Test considered but Not performed: CT: No focal neurologic deficits, CT scan of the head not indicated. Care significantly affected by the following chronic conditions: Chronic Kidney Disease. Counseling: I had a detailed discussion with the patient and/or guardian regarding the historical points, exam findings, and any diagnostic results supporting the discharge/admit diagnosis, lab results, radiology results, the need for further work-up and treatment in the hospital. 01/11 10:35 Order name: Blood Culture Adult (2) rt 01/11 10:35 Order name: CBC with Diff; Complete Time: 12:03 rt 01/11 10:35 Order name: CMP; Complete Time: 12:03 rt 01/11 10:35 Order name: Lactate w/ 2H reflex if indic.; Complete Time: 12:03 rt 01/11 10:35 Order name: Protime (+inr); Complete Time: 12:03 rt 01/11 10:35 Order name: Ptt, Activated; Complete Time: 12:03 rt 01/11 10:35 Order name: Urinalysis w/ reflexes rt 01/11 10:35 Order name: Troponin High Sensitivity; Complete Time: 12:03 rt 01/11 10:35 Order name: CPK; Complete Time: 12:03 rt 01/11 10:35 Order name: TSH; Complete Time: 12:03 rt 01/11 13:17 Order name: Body Fluid Culture EDMS 01/11 10:35 Order name: Chest Single View XRAY; Complete Time: 12:03 rt 01/11 10:35 Order name: Foot Left 3 View XRAY; Complete Time: 12:03 rt 01/11 10:35 Order name: EKG; Complete Time: 10:36 rt 01/11 10:35 Order name: Accucheck; Complete Time: 12:41 rt 01/11 10:35 Order name: Cardiac monitoring; Complete Time: 10:40 rt 01/11 10:35 Order name: EKG - Nurse/Tech; Complete Time: 11:12 rt 01/11 10:35 Order name: IV Saline Lock - Large Bore; Complete Time: 11:12 rt 01/11 10:35 Order name: Labs collected and sent; Complete Time: 11:12 rt 01/11 10:35 Order name: O2 Per Protocol; Complete Time: 10:40 rt 01/11 10:35 Order name: O2 Sat Monitoring; Complete Time: 10:40 rt 01/11 10:35 Order name: Vital Signs; Complete Time: 11:12 rt EC:26 Rate is 62 beats/min. Rhythm is regular, Normal Sinus Rhythm with Occasional PVCs. QRS rt [place] is Normal. [place] interval is normal. QRS interval is normal. QT interval is normal. No Q waves. No ST changes noted. Interpreted by me. Administered Medications: 11:18 Drug: NS 0.9% IV 500 ml IV at bolus bolus Route: IV; Rate: bolus; Site: right forearm; ko1 14:12 Drug: Piperacillin-Tazobactam IVPB 3.375 grams IVPB once over 60 mins; (mix in NS 100 ph mL) Route: IVPB; Infused Over: 60 mins; Site: right antecubital; 14:59 Drug: vancoMYCIN IVPB 1 grams IVPB once over 2 hrs Route: IVPB; Infused Over: 2 hrs; ko1 Site: left forearm; Disposition Summary: 01/11/23 13:20 Hospitalization Ordered Notes: Hospitalization Status: Observation rt Provider: Julio Stratton rt Location: Telemetry/[facility] (observation) rt Condition: Stable rt Problem: new rt Symptoms: have improved rt Bed/Room Type: Standard rt Room Assignment: 229(01/11/23 14:24) dw Diagnosis - Rigors rt - Generalized weakness rt Forms: - Medication Reconciliation Form rt - SBAR form rt - Leadership Thank You Letter rt Signatures: Dispatcher [employer] Shelby Falcon RN RN dw Hall, Patricia RN Sagrario Santana ph RN Parisa Ortez RN RN ko1 Kartik Ortiz MD MD rt Corrections: (The following items were deleted from the chart) :24 13:20 rt dw
--- NOTE | 2023-01-11 13:20 | ER ---
Nurse's Notes [facility] Name: Enrrique Vaughn Age: 77 yrs Sex: Male : 1945 Arrival Date: 01/11/2023 Time: 10:02 Bed 4 Private MD: Diagnosis: Rigors;Generalized weakness Presentation: 01/11 10:12 Chief complaint: Had left leg angioplasty by Dr. Payne yesterday, reports generalized hb weakness and malaise since last night. Coronavirus screen: At this time, the client does not indicate any symptoms associated with coronavirus-19. Ebola Screen: No symptoms or risks identified at this time. Initial Sepsis Screen: Does the patient meet any 2 criteria? No. Patient's initial sepsis screen is negative. Does the patient have a suspected source of infection? No. Patient's initial sepsis screen is negative. Risk Assessment: Do you want to hurt yourself or someone else? Patient reports no desire to harm self or others. Onset of symptoms was January 10, 2023. 10:12 Method Of Arrival: Wheelchair hb 10:12 Acuity: SAMANTHA 3 hb Historical: - Allergies: 10:15 atorvastatin calcium; hb 10:15 Lipitor; hb 10:15 Niacin; hb 10:15 Niaspan; hb 10:15 Paxil; hb 10:15 Tape; hb - PMHx: 10:15 COPD; Hypertension; Prostate Cancer; Gout; kidney failure stage 5; hb - Immunization history:: Adult Immunizations up to date. - Social history:: Smoking status: . - Family history:: not pertinent. Screenin:00 [facility] ED Fall Risk Assessment (Adult) History of falling in the last 3 months, ko1 including since admission No falls in past 3 months (0 pts) Confusion or Disorientation No (0 pts) Intoxicated or Sedated No (0 pts) Impaired Gait Yes (1 pt) Mobility Assist Device Used Yes (1 pt) Altered Elimination No (0 pt) Score/Fall Risk Level 0 - 2 = Low Risk Oriented to surroundings, Maintained a safe environment, Educated pt \T\ family on fall prevention, incl call for assistance when getting out of bed, Assessed \T\ reinforced patient's understanding of fall precautions, Provided non-skid footwear, Hourly rounding (assess needs \T\ fall precautionary measures) done, Used ambulatory aids as needed (educated on \T\ assisted with), Used gait belt as appropriate. Abuse screen: Denies threats or abuse. Denies injuries from another. Nutritional screening: No deficits noted. Tuberculosis screening: No symptoms or risk factors identified. Assessment: 11:00 General: Appears in no apparent distress. ill, obese, Behavior is cooperative, ko1 appropriate for age. Pain: Denies pain. Neuro: Reports weakness in generalized. Cardiovascular: No deficits noted. Respiratory: No deficits noted. GI: No deficits noted. : dialysis patient. EENT: No deficits noted. Derm: incisions from CV surgery yesterday. Musculoskeletal: Reports weakness in generalized. Vital Signs: 10:12 BP 121 / 57; Pulse 68; Resp 17; Temp 98.3(TE); Pulse Ox 94% on R/A; Weight 93.89 kg; hb Height 5 ft. 6 in. ; Pain 0/10; 11:00 BP 154 / 68; Pulse 65; Resp 18; Pulse Ox 94% on R/A; ko1 13:13 BP 138 / 66; Pulse 67; Resp 18; Pulse Ox 100% ; ko1 10:12 Body Mass Index 33.41 (93.89 kg, 167.64 cm) hb 10:12 Pain Scale: Adult hb ED Course: 10:05 Patient arrived in ED. mr 10:06 Kartik Ortiz MD is Attending Physician. rt 10:15 Triage completed. hb 10:15 Arm band placed on. hb 10:39 Parisa Delarosa, CHRISTOPHER is Primary Nurse. ko1 11:00 Patient has correct armband on for positive identification. Placed in gown. Bed in low ko1 position. Call light in reach. Side rails up X2. Provided Education on: na. Client placed on continuous cardiac and pulse oximetry monitoring. NIBP monitoring applied. residential monitor on. Door closed. Noise minimized. Lights dimmed. Warm blanket given. 11:10 Inserted saline lock: 22 gauge in right forearm, using aseptic technique. Blood ko1 collected. 11:12 TSH Sent. ko1 11:12 CPK Sent. ko1 11:12 Troponin High Sensitivity Sent. ko1 11:12 Blood Culture Adult (2) Sent. ko1 11:12 CBC with Diff Sent. ko1 11:12 CMP Sent. ko1 11:12 Lactate w/ 2H reflex if indic. Sent. ko1 11:12 Protime (+inr) Sent. ko1 11:12 Ptt, Activated Sent. ko1 11:45 Chest Single View XRAY In Process Unspecified. EDMS 11:45 Foot Left 3 View XRAY In Process Unspecified. EDMS 13:19 Julio Stratton MD is Hospitalizing Provider. rt 14:45 No provider procedures requiring assistance completed. Patient admitted, IV remains in ko1 place. Administered Medications: 11:18 Drug: NS 0.9% IV 500 ml IV at bolus bolus Route: IV; Rate: bolus; Site: right forearm; ko1 14:12 Drug: Piperacillin-Tazobactam IVPB 3.375 grams IVPB once over 60 mins; (mix in NS 100 ph mL) Route: IVPB; Infused Over: 60 mins; Site: right antecubital; 14:59 Drug: vancoMYCIN IVPB 1 grams IVPB once over 2 hrs Route: IVPB; Infused Over: 2 hrs; ko1 Site: left forearm; Medication: 14:44 VIS not applicable for this client. ko1 Outcome: 13:20 Decision to Hospitalize by Provider. rt 14:45 Admitted to Tele accompanied by tech, via stretcher, room 229, with chart, Report ko1 called to christopher sorto 14:45 Condition: stable 14:45 Instructed on the need for admit, Demonstrated understanding of instructions, 15:16 Patient left the ED. ph Signatures: Dispatcher [employer] EDMN Mary Gan, Reg Reg mr KitchenShannon RN RN ph Baxter, Heather, RN RN hb Oliver, Kathy, RN RN ko1 Kartik Ortiz MD MD rt
[2023-01-11] MEDS ORDERED: VANCOMYCIN 1 GM/VIAL ONE (13:48)
[2023-01-11] MEDS ORDERED: NA CHLORIDE 0.9% 100 ML ONE (13:48)
[2023-01-11] MEDS ORDERED: NA CHLORIDE 0.9% 250 ML ONE (13:48)
[2023-01-11] MEDS ORDERED: PIPERACIL/TAZO 3.375 GM VIAL IV ONE (13:49)
[2023-01-11 14:18] LABS: Urine Bacteria <20 /HPF (<20); Urine Bilirubin NEGATIVE (Negative); Urine Blood Negative (Negative); Urine Clarity Extremely Turbid (Clear); Urine Color Yellow (Yellow); Urine Glucose NEGATIVE (Negative); Urine Mucus Slight /HPF (None Seen); Urine Protein 3+ (Negative); Urine RBC <5 /HPF (None Seen); Urine Urobilinogen Normal (Normal); Urine WBC Clump Rare /HPF (None Seen)
[2023-01-11 16:14] VITALS: BMI 33.4
[2023-01-11] MEDS ORDERED: DRISDOL (VITAMIN D=ERGOCALCIFEROL) 50000 UNIT CAP PO SCH (17:00)
--- NOTE | 2023-01-11 17:13 | P.CNS ---
Date of Consult: 01/11/23 Reason for Consult: ESRD, continuation of dialysis Requesting Physician: Julio Stratton V Chief Complaint: Weakness, chills History of Present Illness: Pt is a 77 yo male with hx of chronic HTN, ESRD initiated on HD within the past year, on HT/CCPD, a hx of COPD, chronic tobacco use and PAD who had an elective peripheral angiogram procedure and intervention yesterday but post procedure felt weak, shaky with some rigors. No abdominal pain or N/V. He did do PD last night. He denies any cloudy drain bags. In the ER, he received IVF and Abx. Allergies niacin [From Niaspan Extended-Release] Allergy (Mild, Verified 08/30/22 08:09) "Flushing" paroxetine HCl [From Paxil] Allergy (Mild, Verified 08/30/22 08:09) "Agitation" atorvastatin calcium [From Lipitor] Adverse Reaction (Intermediate, Verified 08/30/22 08:09) Muscle weakness paper tape Adverse Reaction (Uncoded 08/30/22 08:09) Rash/Pulls skin off Home Medications: Clopidogrel Bisulfate [Plavix*] 75 mg PO NOON 06/30/12 Tamsulosin [Flomax*] 0.4 mg PO BID 06/30/12 allopurinoL [Allopurinol] 300 mg PO NOON 11/30/13 Rosuvastatin [Crestor*] 20 mg PO NOON 11/03/17 Duloxetine [Cymbalta *] 60 mg PO DAILY 07/23/18 Fluticasone/Umeclidin/Vilanter [Trelegy Ellipta 100-62.5-25] 1 each IH DAILY 07/23/18 Albuterol Neb [Proventil 0.083% Neb Soln] 1 unit IH TID 06/25/21 Arformoterol Tartrate [Brovana] 1 unit IH TID 06/25/21 Dutasteride [Avodart*] 1 tab PO NOON 06/25/21 Pregabalin [Lyrica] 150 mg PO BID 11/07/21 Amlodipine [Norvasc*] 5 mg PO BID 05/19/22 Magnesium Oxide [Magnesium] 400 mg PO DAILY 05/19/22 Metoprolol Succinate [Toprol Xl*] 25 mg PO BID 05/19/22 Pantoprazole [Protonix Tab*] 40 mg PO DAILY tab 05/24/22 Furosemide [Lasix] 40 mg PO BIDL 08/30/22 [place]-3/Dha/Epa/Fish Oil [Fish Oil 500 mg Softgel] 1 each PO BID 08/30/22 Vitamin D [Drisdol] 50,000 unit PO SEECOM 08/30/22 Calcium Acetate 667 mg PO AC 01/11/23 - Past Medical/Surgical History Diabetic: No -: HTN -: Gout -: Ley's Cyst -: Prostate CA -: Kidney dx stage 5 -: COPD -: Cardiac cath x2 w/stent placement -: R illiac & coronary stents -: stents BLE - Social History Smoking Status: Unknown if ever smoked Alcohol use: No CD- Drugs: No Caffeine use: No Place of Residence: Home Review of Systems General: Weakness, Malaise Eyes: Unremarkable ENT: Unremarkable Respiratory: Unremarkable Cardiovascular: Light Headedness, As per HPI Gastrointestinal: Unremarkable Genitourinary: Other (Abnormal UA but not a clean catch specimen) Musculoskeletal: Unremarkable Integumentary: Unremarkable Neurological: Weakness Physical Examination Temp Pulse Resp BP Pulse Ox 98.3 F 67 18 138/66 01/11/23 10:12 01/11/23 13:13 01/11/23 13:13 01/11/23 13:13 General: Other (Appears pale, ill) HEENT: Atraumatic, EOMI Neck: Supple Respiratory: Clear to auscultation bilaterally, Normal air movement Cardiovascular: No edema, Regular rate/rhythm, Normal S1 S2 Gastrointestinal: Other (soft, protuberant, NT, PD catheter exit site c/d) Musculoskeletal: No swelling, No contractures, No tenderness Integumentary: No rashes Neurological: Normal speech, Normal tone, Other (Generalized weakness) Laboratory Data (last 24 hrs) 01/11/23 01/11/23 01/11/23 11:00 11:00 11:00 WBC 10.60 Hgb 9.8 L Hct 29.0 L Plt Count 129 L PT 12.0 INR 1.09 APTT 33.8 Sodium 139 Potassium 4.9 BUN 56 H Creatinine 7.66 H Glucose 112 H Total Bilirubin 0.5 AST 11 L ALT 12 L Alkaline Phosphatase 58 Conclusions/Impression: A/P) 1. ESRD 2nd to chronic conditions, initiated on [employer] within the past year, on [employer]. Metab profile stable on admission. Azotemia levels c/w range seen during his period on PD. Recent adequacy assessment came out lower than goal, so prescription was modified. 2. Acute generalized weakness more likely related to an acute process, possible infection, left shift seen on CBC. Invasive procedure yesterday, f/u blood cultures. Empiric Abx administered in the ER 3. Peritonitis less likely based on clinically or on exam but will check effluent for cell count, diff and culture 4. Pt can continue CCPD prescription from home, they have brought their cycler i n, but asked them to use green and yellow solutions for reduced UF 5. BP is not elevated, hold Amlodipine, no further fluids needed at this time. Monitor range. 6. Anemia 2nd to CKD -Hb just under 10, monitor for any drop Michael Thompson MD, [facility]
--- NOTE | 2023-01-11 17:15 | P.HP ---
Certification for Inpatient Patient admitted to: Inpatient With expected LOS: >2 Midnights Practitioner: I am a practitioner with admitting privileges, knowledge of patient current condition, hospital course, and medical plan of care. Services: Services provided to patient in accordance with Admission requirements found in Title 42 Section 412.3 of the Code of Federal Regulations Patient History Date of Service: 01/11/23 Reason for admission: WEAKNESS, FATIGUE History of Present Illness: ZURI IS A HEAVY SMOKER WITH SEVERE GENERAL VASCULOPATHY COMES IN TODAY FOUND HIM LETHARGIC. HE HAD MAJOR ATHERCETOMY OF L THIGH YESTERDAY BY DR. FLORES. HE CALLED TODAY HE SENT HIM TO ER FOR LETHARGY AFTER I ASKED HIM TO. I SUSPECT SEPSIS FROM PERITONEAL DIALYSIS RELATED ABDOMEN INFECTION. I ASKED ACCOUNTING MACHINE SERVICER TO CONSULT. I ASKED DR. MARTI TO GET CULTURE FROM THE CATHETER FOR PD. HE WILL GET BROAD SPECTRUM ANTIBIOTIC UNTIL FURTHER RESOLUTION. Allergies niacin [From Niaspan Extended-Release] Allergy (Mild, Verified 08/30/22 08:09) "Flushing" paroxetine HCl [From Paxil] Allergy (Mild, Verified 08/30/22 08:09) "Agitation" atorvastatin calcium [From Lipitor] Adverse Reaction (Intermediate, Verified 08/30/22 08:09) Muscle weakness paper tape Adverse Reaction (Uncoded 08/30/22 08:09) Rash/Pulls skin off Home medications list reviewed: Yes Home Medications: Clopidogrel Bisulfate [Plavix*] 75 mg PO NOON 06/30/12 Tamsulosin [Flomax*] 0.4 mg PO BID 06/30/12 allopurinoL [Allopurinol] 300 mg PO NOON 11/30/13 Rosuvastatin [Crestor*] 20 mg PO NOON 11/03/17 Duloxetine [Cymbalta *] 60 mg PO DAILY 07/23/18 Fluticasone/Umeclidin/Vilanter [Trelegy Ellipta 100-62.5-25] 1 each IH DAILY 07/23/18 Albuterol Neb [Proventil 0.083% Neb Soln] 1 unit IH TID 06/25/21 Arformoterol Tartrate [Brovana] 1 unit IH TID 06/25/21 Dutasteride [Avodart*] 1 tab PO NOON 06/25/21 Pregabalin [Lyrica] 150 mg PO BID 11/07/21 Amlodipine [Norvasc*] 5 mg PO BID 05/19/22 Magnesium Oxide [Magnesium] 400 mg PO DAILY 05/19/22 Metoprolol Succinate [Toprol Xl*] 25 mg PO BID 05/19/22 Pantoprazole [Protonix Tab*] 40 mg PO DAILY tab 05/24/22 Furosemide [Lasix] 40 mg PO BIDL 08/30/22 [place]-3/Dha/Epa/Fish Oil [Fish Oil 500 mg Softgel] 1 each PO BID 08/30/22 Vitamin D [Drisdol] 50,000 unit PO SEECOM 08/30/22 Calcium Acetate 667 mg PO AC 01/11/23 - Past Medical/Surgical History Diabetic: No -: HTN -: Gout -: Ley's Cyst -: Prostate CA -: Kidney dx stage 5 -: COPD -: Cardiac cath x2 w/stent placement -: R illiac & coronary stents -: stents BLE - Social History Smoking Status: Former smoker Alcohol use: No CD- Drugs: No Caffeine use: No Place of Residence: Home Review of Systems 10-point ROS is otherwise unremarkable General: Weakness, Malaise Physical Examination - Vital Signs Temperature: 98.3 F Blood Pressure: 138/66 Pulse: 67 Respirations: 18 - Physical Exam General: Oriented x3, Mild distress (MILD LETHARGY.) HEENT: Atraumatic, PERRLA, Mucous membr. moist/pink, EOMI, Sclerae nonicteric Neck: Supple, 2+ carotid pulse no bruit, No LAD, Without JVD or thyroid abnormality Respiratory: Clear to auscultation bilaterally, Normal air movement Cardiovascular: Regular rate/rhythm, Normal S1 S2 Gastrointestinal: Normal bowel sounds, No tenderness Musculoskeletal: No tenderness Integumentary: No rashes Neurological: Normal gait, Normal speech, Normal strength at 5/5 x4 extr, Normal tone, Normal affect Lymphatics: No axilla or inguinal lymphadenopathy - Studies Laboratory Data (last 24 hrs) 01/11/23 01/11/23 01/11/23 11:00 11:00 11:00 WBC 10.60 Hgb 9.8 L Hct 29.0 L Plt Count 129 L PT 12.0 INR 1.09 APTT 33.8 Sodium 139 Potassium 4.9 BUN 56 H Creatinine 7.66 H Glucose 112 H Total Bilirubin 0.5 AST 11 L ALT 12 L Alkaline Phosphatase 58 Assessment and Plan - Plan SEPSIS POSSIBLE FROM ABDOMEN ,PD RELATED SOURCE START IV ZOSYN CULTURE PENDING. HE IS HIGH RISK PATIENT WITH HEAVY SMOKING WHO DOES NOT WANT TO QUIT. HE HAS MANY AREAS OF VASCULAR DAMAGE, PVD, CKD- END STAGE ON HD. HE CARRIES POOR PROGNOSIS. HE AND ARE WELL AWARE OF HIS HIGH RISK HABITS AND MANY COMPLICATIONS HE ALREADY HAS FROM THEM. HE HAS COPD THAT IS ALSO MODERATE TO SEVERE. - Advance Directives Does patient have a Living Will: No Does patient have a Durable POA for Healthcare: No
[2023-01-11] MEDS ORDERED: PIPER TAZO 2.25 GM in NA CHLORIDE 0.9% 50 ML IV SCH (18:00)
[2023-01-11] MEDS: ARFORMOTEROL TARTRATE 15 MCG/2 ML VIAL.NEB IH SCH (19:45)
[2023-01-11] MEDS: ALBUTEROL 2.5 MG/3 ML NEB SOL IH SCH (19:45)
[2023-01-11] MEDS: METOPROLOL XL 25 MG TAB PO SCH (20:20)
[2023-01-11] MEDS: TAMSULOSIN 0.4 MG SR CAP PO SCH (20:20)
[2023-01-11] MEDS ORDERED: AMLODIPINE 5 MG TAB PO SCH (21:00)
[2023-01-11] MEDS ORDERED: PREGABALIN 150 MG CAP PO SCH (21:00)
[2023-01-12] MEDS: PIPER TAZO 2.25 GM in NA CHLORIDE 0.9% 50 ML IV SCH ×4 (00:14→16:50)
[2023-01-12] MEDS: CALCIUM ACETATE 667 MG TAB PO SCH ×3 (07:29→16:49)
[2023-01-12 07:30] LABS: Body Fluid Source PERITONEAL
[2023-01-12 07:31] LABS: Appearance CLEAR (CLEAR); Body Fluid WBC 19 /mm^3; Color of fluid Colorless (COLORLESS)
[2023-01-12] MEDS: ALBUTEROL 2.5 MG/3 ML NEB SOL IH SCH (08:00)
[2023-01-12] MEDS: TAMSULOSIN 0.4 MG SR CAP PO SCH ×2 (08:53→21:30)
[2023-01-12] MEDS: PREGABALIN 75 MG CAP PO SCH (08:53)
[2023-01-12] MEDS: METOPROLOL XL 25 MG TAB PO SCH ×2 (08:53→21:30)
[2023-01-12] MEDS: PANTOPRAZOLE 40MG TABLET PO SCH (08:53)
[2023-01-12] MEDS: ENOXAPARIN 30 MG/0.3 ML SQ SCH (08:54)
[2023-01-12] MEDS: MAGNESIUM OXIDE 400 MG TAB PO SCH (08:54)
[2023-01-12] MEDS: DULOXETINE 30 MG CAP PO SCH (08:54)
[2023-01-12] MEDS ORDERED: PREGABALIN 150 MG CAP PO SCH (09:00)
[2023-01-12] MEDS ORDERED: FLUTICASONE IH SCH (09:00)
[2023-01-12] MEDS ORDERED: VILANTER IH SCH (09:00)
[2023-01-12] MEDS ORDERED: HOME MED 1 EA UNK (Fluticasone/Umeclidin/Vilanter [Trelegy Ellipta 100-62.5-25] Blst.W.Dev IH SCH (09:00)
[2023-01-12] MEDS ORDERED: UMECLIDIN IH SCH (09:00)
[2023-01-12] MEDS: ARFORMOTEROL TARTRATE 15 MCG/2 ML VIAL.NEB IH SCH (09:10)
[2023-01-12] MEDS: allopurinoL 300 MG TAB PO SCH (11:34)
[2023-01-12] MEDS: CLOPIDOGREL 75 MG TABLET PO SCH (11:34)
[2023-01-12] MEDS: ROSUVASTATIN 10 MG TAB PO SCH (11:35)
[2023-01-12] MEDS: DUTASTERIDE 0.5 MG GEL CAP PO SCH (13:11)
[2023-01-12] MEDS ORDERED: ALBUTEROL 2.5 MG/3 ML NEB SOL NEB SCH (14:00)
--- NOTE | 2023-01-12 14:57 | P.PN ---
Subjective Date of Service: 01/12/23 Chief Complaint: WEAK, CHILLS, DYSPNEA AND TODAY INVOLUNTARY SHAKING. Subjective: Improving HE IS SOMEWHAT BETTER BUT THE SHAKING ABOVE IS NEW. HE DID NOT HAVE SHAKES YESTERDAY BUT HAD CHILLS AND WEAKNESS. DR. HUA THINKS THIS MAY A REACTION FROM ANESTHESIA MAY BE A LATE ONE. HE HAS RULED OUT SBP AND UREMIA CAUSE. Review of Systems 10-point ROS is otherwise unremarkable General: Weakness, Malaise Physical Examination - Vital Signs Temperature: 97.8 F Blood Pressure: 100/51 Pulse: 62 Respirations: 18 Pulse Ox (%): 85 - Physical Exam General: Oriented x3, Mild distress, Obese HEENT: Atraumatic, PERRLA, EOMI Neck: Supple, JVD not distended Respiratory: Diminished Cardiovascular: Regular rate/rhythm, Normal S1 S2 Gastrointestinal: Normal bowel sounds, No tenderness Musculoskeletal: No tenderness Integumentary: No rashes Neurological: Normal speech, Normal tone, Normal affect Lymphatics: No axilla or inguinal lymphadenopathy - Studies Medications List Reviewed: Yes Assessment And Plan - Current Problems (Diagnosis) (1) Sepsis Current Visit: Yes Status: Acute Plan: ON ADMISSION HE LOOKED CLINICALLY TO BE SEPTIC. HE WAS LETHARGIC AND SHORT OF BREATH ZOSYN HAS HELPED. HIS BP WAS GOOD THIS AM BUT LOWER THIS AFTERNOON WHEN DR. HUA SAW HIM. (2) CKD, patient preferred treatment modality peritoneal dialysis Current Visit: Yes Status: Chronic Plan: CONT PD (3) Involuntary movements Current Visit: Yes Status: Acute Plan: IF NOT UREMIC IT MAY OR MAY NOT ME RELATED TO ANESTHETIC. IF IT IS, IT IS A LATE REACTION HE DID NOT HAVE THIS YESTERDAY. WILL CONTINUE CONSERVATIVE THERAPY ADD THIAMINE IV. AVOID ANY MORE SEDATIVES. (4) COPD exacerbation Current Visit: No Status: Acute Plan: IV STEROIDS NEBS HE HE A HEAVY SMOKER FOR LONG DURATION AND DOES NOT WANT TO QUIT. HE AND KNOW THAT ALL HE IS SUFFERING FROM NOW IS BECAUSE OF SMOKING. HE IS STILL FULL CODE. HE WANTS EVERYTHING DONE. - Plan SEPSIS POSSIBLE FROM ABDOMEN ,PD RELATED SOURCE START IV ZOSYN CULTURE PENDING. HE IS HIGH RISK PATIENT WITH HEAVY SMOKING WHO DOES NOT WANT TO QUIT. HE HAS MANY AREAS OF VASCULAR DAMAGE, PVD, CKD- END STAGE ON HD. HE CARRIES POOR PROGNOSIS. HE AND ARE WELL AWARE OF HIS HIGH RISK HABITS AND MANY COMPLICATIONS HE ALREADY HAS FROM THEM. HE HAS COPD THAT IS ALSO MODERATE TO SEVERE.
[2023-01-12] MEDS: METHYLPREDNISOLONE 40 MG INJ IV SCH ×2 (14:59→21:30)
[2023-01-12] MEDS ORDERED: ALBUTEROL 2.5 MG/3 ML NEB SOL NEB PRN (15:20)
--- NOTE | 2023-01-12 17:51 | PN ---
Date of Progress Note: 01/12/2023 Subjective: Patient is seen in [facility] in room 229. is by the bed side. Patient is alert, awake, feels somewhat better. He did have some tremors earlier, more pronou nced yesterday and had some leg procedure done and got anesthesia with it. Seems like, he had some r eaction to the anesthesia. Patient is clinically improving now. Today, he looks well. His peritone al fluid does not indicate any infection or peritonitis. His labs not indicate any uremia. He is cl ear, alert, awake. He does have some wheezing on exam. Air entry is somewhat poor. He does have so me cough, O2 sats are dropping below 90 at times. He does seem to have some mild shortness of breath and does feel like a COPD exacerbation is acting up. Objective: Vital Signs: Evaluation of his vitals, the patient looks relatively stable. Blood press ure has been on the lower side with last blood pressure at 100/51, before that 116/56. His O2 sats a re between 85% to 95% on 3 L nasal cannula. He is about 95%. Lungs: Clear anteriorly, but do have some diffuse wheezes that improved with cough. He does have so me crackles at the bases diffusely as well that improve with cough. Abdomen: Soft. Extremities: Reveal no edema. Heart: Sounds are regular. Laboratory Data: Reviewed. WBC count is 10.6, hemoglobin 9.8, hematocrit 29, platelet count is 129. Chemistry show sodium 139, potassium 4.9, chloride is 104, bicarb is 29, BUN is 56, creatinine 7.66 , calcium is 8.5. His albumin is 2.5. Calcium corrected for this albumin is in good range. TSH is 0.67. Assessment/plan: Patient with some mild tremors after procedure and anesthesia, now improving, seems to be well dialyzed. Alert, awake, overall looking good. Urine does seem to have some WBCs and RBC s, but also some epithelial cells. At this point, we will go ahead and get another urine sample and a urine culture. Straight cath is okay. Discussed with the nurse. Also, we will get a magnesium le darshan. I will get a cortisol level. Vancomycin has been on hold as level is over 20, may need to resu me in the future if indicated for urine infection and/or if the level comes down and indicated for ur ine infection. At this point, there is no need to continue further vancomycin. Zosyn can be continu ed as is and urine culture results can be monitored. Blood culture results can be monitored. If all negative, antibiotic course can be completed with the narrow antibiotic. Patient seems to have some COPD/bronchitis going on. We will start a low-dose Solu-Medrol for the next 3 days, already on anti biotics, oxygen to keep O2 sats above 92%. Discussed plan also with the patient and his and als o with Dr. Stratton. /WILLIAM Voice ID: [id number] Report ID: [id number]
[2023-01-12 18:57] LABS: Renal Epithelial <5 /HPF (None Seen); Specific Gravity 1.018 (1.005-1.030); Urine Bacteria None Seen /HPF (<20); Urine Bilirubin NEGATIVE (Negative); Urine Blood Negative (Negative); Urine Clarity Clear (Clear); Urine Color Yellow (Yellow); Urine Glucose NEGATIVE (Negative); Urine Mucus Slight /HPF (None Seen); Urine Protein 2+ (Negative); Urine RBC None Seen /HPF (None Seen); Urine Urobilinogen Normal (Normal); Urine pH 6.5 (5.0-7.0)
[2023-01-12] MEDS: ARFORMOTEROL TARTRATE 15 MCG/2 ML VIAL.NEB NEB SCH (19:55)
[2023-01-13] MEDS: PIPER TAZO 2.25 GM in NA CHLORIDE 0.9% 50 ML IV SCH ×3 (00:53→12:07)
[2023-01-13 03:28] LABS: Potassium 4.9 mEq/L (3.5-5.1)
[2023-01-13] MEDS: ARFORMOTEROL TARTRATE 15 MCG/2 ML VIAL.NEB NEB SCH (08:30)
[2023-01-13] MEDS: ENOXAPARIN 30 MG/0.3 ML SQ SCH (08:52)
[2023-01-13] MEDS: CALCIUM ACETATE 667 MG TAB PO SCH ×3 (08:52→16:40)
[2023-01-13] MEDS: DULOXETINE 30 MG CAP PO SCH (08:53)
[2023-01-13] MEDS: MAGNESIUM OXIDE 400 MG TAB PO SCH (08:53)
[2023-01-13] MEDS: PREGABALIN 75 MG CAP PO SCH (08:53)
[2023-01-13] MEDS: TAMSULOSIN 0.4 MG SR CAP PO SCH (08:53)
[2023-01-13] MEDS: METOPROLOL XL 25 MG TAB PO SCH (08:55)
[2023-01-13] MEDS ORDERED: THIAMINE 200 MG/2 ML INJ IVP SCH (09:00)
[2023-01-13] MEDS: METHYLPREDNISOLONE 40 MG INJ IV SCH (09:04)
[2023-01-13] MEDS: PANTOPRAZOLE 40MG TABLET PO SCH (09:04)
[2023-01-13 10:37] VITALS: O2SAT 91
[2023-01-13] MEDS: ROSUVASTATIN 10 MG TAB PO SCH (12:08)
[2023-01-13] MEDS: DUTASTERIDE 0.5 MG GEL CAP PO SCH (12:09)
[2023-01-13] MEDS: allopurinoL 300 MG TAB PO SCH (12:09)
[2023-01-13] MEDS: CLOPIDOGREL 75 MG TABLET PO SCH (12:09)
[2023-01-13] MEDS ORDERED: HYDROCORTISONE SUC 100 MG INJ IV ONE (12:44)
--- NOTE | 2023-01-13 13:42 | PN ---
Subjective: Patient is seen in room 229 at [facility] in [place]. The pa arlene is alert, awake and comfortable. Says he feels a whole lot better compared to yesterday. Has been able to walk around a little bit better as well. Does not have any pain. Does not have any marlene ma. Breathing is relatively improved compared to yesterday. His blood pressures were however on the lower side, last check about 82/36. His blood pressure on check by the was about 110 in the mo rning. His last blood pressure is 115/68. Objective: Lungs: Clear anteriorly. Abdomen: Soft. Extremities: No edema. The patient is breathing somewhat better in terms of lungs clear and air entry is improved . Lab Day: Reviewed. Labs look relatively stable with WBC of 10, hemoglobin 9.8, hematocrit 29, plate let count of 129. Chemistries of 136, potassium 4.9, chloride 102, bicarb is 27, BUN is 58, creatini ne 7.9, calcium 8.2. Medications on the chart reviewed. The patient is currently on allopurinol. He is also on calcium a cetate. He is on Cymbalta. He is on Avodart. He is on vitamin D. He was on Solu-Medrol 40 b.i.d. We have switched that to 100 Solu-Cortef IV q.12 hours, 50 mg to be given now. The patient is on me toprolol. He has been stopped off Zosyn. He is on tamsulosin. Assessment And Plan: Patient with symptoms of jitteriness and feeling unwell after procedure done on his leg. Improving currently. Volume status seems reasonable. Blood pressure is slightly on the l ower side. Change Solu-Medrol to Solu-Cortef. Continue PD with only tonight with 1.5% to not have too much ultrafiltration. Discussed with . If blood pressure stays low, may need to g mel him some IV fluids. Could use normal saline at about 250 cc over a couple of hours to give the p atient some support that way, but the patient is clinically stable currently and should improve with Solu- Cortef. Evaluate further with possibility of being stable after discharge maybe in the next day or yulisa rdz MD/WILLIAM Voice ID: [id number] Report ID: [id number]
[2023-01-13 17:21] VITALS: BP 153/59; TEMP 97.3
[2023-01-13] MEDS ORDERED: HYDROCORTISONE SUC 100 MG INJ IV SCH (21:00)
--- NOTE | 2023-01-13 21:17 | P.PN ---
Subjective Date of Service: 01/13/23 Chief Complaint: WEAK, CHILLS, DYSPNEA AND TODAY INVOLUNTARY SHAKING. Subjective: Improving HE IS SOMEWHAT BETTER BUT THE SHAKING ABOVE IS NEW. HE DID NOT HAVE SHAKES YESTERDAY BUT HAD CHILLS AND WEAKNESS. DR. HUA THINKS THIS MAY A REACTION FROM ANESTHESIA MAY BE A LATE ONE. HE HAS RULED OUT SBP AND UREMIA CAUSE. [facility]ILLIARD, [facility] [[email or web address]], PERITONEAL FLUID EXAM BLOOD CULTURES AND CXR ALL ARE NEG FOR BACTERMIA. HE IS GIVEN ANTIBIOTICS FOR 5 DAYS HE HAD COPD EXACERBATION IN ADDITION TO ANESTHESIA REACTION WITH ENCEPHALOPATHY. TREMORS ARE GONE NOW WITH TIME AND PD. I ALSO GAVE HIM IV THIAMINE. HE IS STABLE TO GO HOME. HIS PROGNOSIS IS POOR OVERALL. Physical Examination - Vital Signs Temperature: 97.3 F Blood Pressure: 153/59 Pulse: 81 Respirations: 16 Pulse Ox (%): 99 - Studies Microbiology Data (last 24 hrs): 01/11/23 23:48 Body Fluid - Abdomen Gram Stain - Final Medications List Reviewed: Yes Assessment And Plan - Current Problems (Diagnosis) (1) Sepsis Status: Acute Plan: ON ADMISSION HE LOOKED CLINICALLY TO BE SEPTIC. HE WAS LETHARGIC AND SHORT OF BREATH ZOSYN HAS HELPED. HIS BP WAS GOOD THIS AM BUT LOWER THIS AFTERNOON WHEN DR. HUA SAW HIM. (2) CKD, patient preferred treatment modality peritoneal dialysis Status: Chronic Plan: CONT PD (3) Involuntary movements Status: Acute Plan: IF NOT UREMIC IT MAY OR MAY NOT ME RELATED TO ANESTHETIC. IF IT IS, IT IS A LATE REACTION HE DID NOT HAVE THIS YESTERDAY. WILL CONTINUE CONSERVATIVE THERAPY ADD THIAMINE IV. AVOID ANY MORE SEDATIVES. (4) COPD exacerbation Status: Acute Plan: IV STEROIDS NEBS HE HE A HEAVY SMOKER FOR LONG DURATION AND DOES NOT WANT TO QUIT. HE AND KNOW THAT ALL HE IS SUFFERING FROM NOW IS BECAUSE OF SMOKING. HE IS STILL FULL CODE. HE WANTS EVERYTHING DONE. - Plan SEPSIS POSSIBLE FROM ABDOMEN ,PD RELATED SOURCE START IV ZOSYN CULTURE PENDING. HE IS HIGH RISK PATIENT WITH HEAVY SMOKING WHO DOES NOT WANT TO QUIT. HE HAS MANY AREAS OF VASCULAR DAMAGE, PVD, CKD- END STAGE ON HD. HE CARRIES POOR PROGNOSIS. HE AND ARE WELL AWARE OF HIS HIGH RISK HABITS AND MANY COMPLICATIONS HE ALREADY HAS FROM THEM. HE HAS COPD THAT IS ALSO MODERATE TO SEVERE.
--- NOTE | 2023-01-14 12:24 | EKG ---
Test Date: 2023-01-11 Test Time: 10:57:06 Flour Mixer: YANELY MEASUREMENT RESULTS: Intervals: Rate: 62 GA: 196 QRSD: 84 QT: 410 QTc: 416 [place]: P: 52 GA: 196 QRS: 52 T: 80 INTERPRETIVE STATEMENTS: Sinus rhythm with occasional premature ventricular complexes Otherwise normal ECG Compared to ECG 05/18/2022 16:14:36 Ventricular premature complex(es) now present First degree AV block no longer present Prolonged QT interval no longer present Electronically Signed On 01-14-23 12:18:54 CDT by Bryn Dacosta
--- NOTE | 2023-01-14 12:24 | EKG ---
Test Date: 2023-01-11 Test Time: 10:57:59 Water Proofer: YANELY MEASUREMENT RESULTS: Intervals: Rate: 65 DE: 194 QRSD: 84 QT: 436 QTc: 453 [place]: P: 54 DE: 194 QRS: 53 T: 89 INTERPRETIVE STATEMENTS: Sinus rhythm with occasional premature ventricular complexes Nonspecific T wave abnormality Abnormal ECG Compared to ECG 01/11/2023 10:57:06 T-wave abnormality now present Electronically Signed On 01-14-23 12:18:51 CDT by Bryn Dacosta
== END 2023-01-13 18:30 | disposition home or self-care (01) | DRG 919 ==
LOC: ER 10:02 → ERHOLD 13:17 → 2ND 14:53 → OBSVTOIN 01-12 16:16
PROVIDERS: ADMIT Internal Medicine; ATTEND Internal Medicine
PROC: 5A1D70Z Performance of Urinary Filtration, Intermittent, Less than 6 Hours Per Day (ICD-10-PCS; principal; 2023-01-11)
DX: T85.71XA Infection and inflammatory reaction due to peritoneal dialysis catheter, initial encounter (principal); A41.9 Sepsis, unspecified organism; N18.6 End stage renal disease; I12.0 Hypertensive chronic kidney disease with stage 5 chronic kidney disease or end stage renal disease; J44.1 Chronic obstructive pulmonary disease with (acute) exacerbation; D63.1 Anemia in chronic kidney disease; I73.9 Peripheral vascular disease, unspecified; E86.0 Dehydration; M10.9 Gout, unspecified; I25.10 Atherosclerotic heart disease of native coronary artery without angina pectoris; Z88.8 Allergy status to other drugs, medicaments and biological substances; Z99.2 Dependence on renal dialysis; Z95.5 Presence of coronary angioplasty implant and graft; Z85.46 Personal history of malignant neoplasm of prostate; Z79.02 Long term (current) use of antithrombotics/antiplatelets; Z91.048 Other nonmedicinal substance allergy status; Z79.899 Other long term (current) drug therapy; Z87.891 Personal history of nicotine dependence; Y84.8 Other medical procedures as the cause of abnormal reaction of the patient, or of later complication, without mention of misadventure at the time of the procedure
CPT/HCPCS: 36415; 71045; 80048; 80053; 80202; 81001; 82533; 82550; 82947; 83605; 83735; 84443; 84484; 85025; 85610; 85730; 87040; 87070; 89050; 93005; 99285; G0378; J1650; J1720; J2543; J2920; J3411; J7040; J7050; J7605

== ENCOUNTER 2023-01-28 18:24 | Inpatient (IN) | payer OTHER ==
--- OUTSIDE RECORDS SUMMARY | 2023-01-28 18:33 | XMS REPORT | Continuity of Care Document ---
:1945 Author Organization [facility] t Address [address] [place] [address] Care Team Providers Name Role Phone Julio Romero Primary Care Physician PAUL VILLA Attending Clinician Unavailable Paul Villa MD Attending Clinician Doctor Unassigned, [place] Attending Clinician Unavailable KIMBERLEY CHRISTY Attending Clinician [...] 00:00: [place] involving involving 00 Medi [place] coronary coronary artery of artery of [place] heart heart without without angina angina pectoris pectoris Hemodialys Hemodialys Disease Active Overview : Univers is status is status 3-24 Formattin i ty of 00:00: g of this [place] 00 note Medical might be Branch different from the original. Added automatic ally from request for surgery [id number] Umbilical Umbilical Disease Active Overview: Univers hernia hernia 3-24 Formattin ity of without without 00:00: g of this [place] obstructio obstructio 00 note Me dical n and n and might be Branch without without different gangrene gangrene from the original. Added automatic ally from request for surgery [id number] Acute Acute Disease Active Univers kidney kidney [...] 1-20 it y of a a 00:00: [place] [facility] AAA AAA Disease Active [facility] (abdominal (abdominal 6-07 Marguerite kes aortic aortic 00:00: Medical aneurysm) aneurysm) 00 Cent er Coronary Coronary Disease Active Unive rs atheroscle atheroscle 2-03 it y of rosis rosis 00:00: [place] [facility] 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[facility] [...] 1-19 ity of ICONES 00:00: [place] 00 [facility] Adhesive Drug Active Rash USE PAPER Unive rs Tape-Destiny Intolera -19 TAPE ity of icones nce 00:00: ONLYUSE [place] 00 PAPER Medical TAPE ONLY Branch NO KNOWN Drug Active Univers ALLERGIE Class ity of S [facility] Social History Social Habit Start Date Stop Date Quantity Comments Source History of tobacco Cigarette Smoker [facility] [place] [facility] Gender identity [facility] Sexual orientation Univer sit of [facility] History of Social 2022-07-10 2022-07-10 Univers ity of function 00:00:00 00:00:00 [facility] Exposure to 2022 2022-07-05 Not sure [facility] SARS-CoV-2 (event) 00:00:00 11:29:00 [facility] Tobacco Comment 2022-06-28 2022-06-28 smoker for Universit y of 00:00:00 00:00:00 greater than 40 [facility] ical years Branch Cigarettes smoked 2022-06-28 2022-06-28 Univers ity of current (pack per 00:00:00 00:00:00 [facility] [place] [facility] ) - Reported Branch Tobacco use and 2022-06-28 2022-06-28 Former smokeless Uni versity of exposure 00:00:00 00:00:00 tobacco user [facility] Alcohol intake 2015-09-14 2015-09-14 4 /d [facility] 00:[facility]00 [facility] Sex Assigned At [birth year] Universit y of 00:00:00 00:00:00 [facility] Smoking Status Start Date Stop Date Source Unknown if ever smoked Universit y of [facility] Smokes tobacco daily 2022-06-28 00:00:00 [facility] Medications Ordered Filled Start Stop Current Ordering Indication Dosage Frequency Signature Comments Components Source Medication Medication Date Date Medication? Clinician (SIG) Name Name ezetimibe 2022-0 Yes [id number] 10mg Take 1 U nivers 10 mg 9-22 tablet by ity of tablet 00:00: mouth in [place] the morning. Branch ezetimibe 3-0 Yes [id number] 10mg Take 1 U nivers 10 mg 9-22 tablet by ity of tablet 00:00: mouth in [place] the Medical morning. Branch ezetimibe 3-0 Yes [id number] 10mg Take 1 U nivers 10 mg 9-22 tablet by ity of tablet 00:00: mouth in [place] the morning. Branch ezetimibe 2022-0 Yes [id number] 10mg Take 1 U nivers 10 mg 9-22 tablet by ity of tablet 00:00: mouth in [place] the morning. Branch ondansetron Yes 4mg 4 mg, Slow Univers (ZOFRAN 4-04 IV Push, ity of (PF)) 21:07: PRN, 1 [place] injection 4 24 dose, Medical mg Starting Branch on Sat07/10/22 at 1607, Until Discontinu ed, Routine, Nausea and Vomiting (N/V), PACU FENTanyl PF Yes 25ug 25 mcg, Uni vers (SUBLIMAZE 4-04 Slow IV ity of (PF)) 21:07: Push, [place] injection 24 Q5MIN PRN, Medi ricki 25 [...] No 25ug 25 mcg, Un elizabeth (SUBLIMAZE 07-10 Slow IV ity o f (PF)) 21:07: 00:58 Push, [place] injection 24 :17 Q5MIN PRN, Medi ricki 25 mcg 4 doses, Branch Starting on Sat07/10/22 at 1607, Until Sat07/10/22 at 1958, Routine, Pain (scale 4-6), PACU heparin 2022- No PRN, Univers lock flush 07-10 Starting ity of (HEPARIN 20:46: 22:57 on Sat [place] LOCKFLUSH(P 00 :42 07/10/22 at Med ica ORCINE)(PF) 1546, Branch ) 100 Until Sat unit/mL 07/10/22 at injection 1757, Routine, Intra-op bupivacaine 2022- No PRN, Unive rs (preserv 07-10 Starting ity of free) 20:35: 22:57 on Sat [place] (SENSORCAIN 00 :42 07/10/22 at [facility] ica E MPF) 0.25 1535, Branch % (2.5 Intra-op mg/mL) 30 mL, bupivacaine -epinephrin e-pf (SENSORCAIN E W/EPINEPHRI NE) 0.5 %-1:200,000 266 mL NaCl 0.9% 2022- No PRN, Univers (NS) 07-10 Starting ity of injection 19:35: 22:57 on Sat [place] 00 :42 07/10/22 at Medical 1435, Branch Until Sat07/10/22 at 1757, Routine, Intra-op levalbutero 2022- No .63mg 0.63 mg, Univers l (XOPENEX) 07-10 Inhalation i ty of nebulizer 19:00: 18:53 , TID, [place] solution 00 :39 First dose Medic al 0.63 mg on [facility] 07/10/22 at 1400, Until Discontinu ed, Routine, DSU Pre-op levalbutero 2022- No .63mg 0.63 mg, Univers l (XOPENEX) 07-10 Inhalation i ty of nebulizer 19:00: 18:53 , TID, [place] solution 00 :39 First dose Medic al 0.63 mg on Tue Branch 07/10/22 at 1400, Until Discontinu ed, Routine, DSU Pre-op ipratropium 2023-0 2023- No .5mg 0.5 mg, Un elizabeth (ATROVENT) 07-10 04-04 Inhalation it y of 0.02 % 17:58: 18:25 , O.R. [place] nebulizer 55 :00 HOLDING Medical solution ONCE, 1 Branch 0.5 mg dose, Starting on Sat07/10/22 at 1258, Until Sat07/10/22 at 1325, Routine, Wheezing, Shortness of Breath ipratropium 2023-0 2023- No .5mg 0.5 mg, Un elizabeth (ATROVENT) 07-10- Inhalation it y of 0.02 % 17:58: 18:25 , O.R. [place] nebulizer 55 :00 HOLDING Medical solution ONCE, 1 Branch 0.5 mg dose, Starting on Sat07/10/22 at 1258, Until Sat07/10/22 at 1325, Routine, Wheezing, Shortness of Breath albuterol 2022-0 Yes 1.25mg Use 3 mL Un elizabeth 1.25 mg/3 4-04 as ity of mL 17:58: directed [place] nebulizer 16 every 6 Medical solution (six) Branch hours as needed for Wheezing. metoprolol 0 Yes Take by [facility] ers succinate 4-04 mouth. ity of 100 mg CSpX 17:58: [place] [address] Medical Branch Vitamin E 0 Yes Take by [facility] [place] [facility] rs 100 4-04 mouth. ity of unit/0.25 17:58: [place] mL Drop 16 Medical Branch ipratropium 2022-0 Yes 2{puff} Inhale 2 Univers /albuterol 4-04 Puffs ity of sulfate 17:58: every 6 [place] (COMBIVENT 16 (six) Medical INHALE) hours as Branch needed for Wheezing. Fenofibric 2022-0 Yes 135mg Take 1 [facility] ers Acid 135 mg 4-04 capsule by it y of capsule 17:58: mouth in [place] 16 the Medical morning. Branch metoprolol 2022-0 Yes 25mg Take 1 [facility] [place] [facility] rs tartrate 25 4-04 tablet by ity of mg tablet 17:58: mouth in [facility] s 16 the Medical morning Branch and 1 tablet in the evening. allopurinoL 2022-0 Yes 300mg Take 1 Uni vers 300 mg 4-04 tablet by ity of tablet 17:58: mouth in [place] 16 the Medical morning. Branch arformotero 2022-0 Yes 15ug Inhale 2 Un elizabeth L 15 mcg/2 4-04 mL 2 (two) ity of mL 17:58: times [place] nebulizer 16 daily as Medica l solution needed. Branch clopidogreL 2022-0 Yes 75mg Take 1 Univ ers 75 mg 4-04 tablet by ity of tablet 17:58: mouth in [place] 16 the Medical morning. Branch dutasteride 2022-0 Yes .5mg Take 1 Univ ers 0.5 mg 4-04 capsule by ity of capsule 17:58: mouth in [place] 16 the Medical morning. Branch rosuvastati 2022-0 Yes 20mg Take 1 Univ ers n 20 mg 4-04 tablet by ity of tablet 17:58: mouth in [place] 16 the Medical morning. Branch omega 2022-0 Yes 360mg Take 360 Univers 3-dha-epa-f 4-04 mg by ity of deejay oil 17:58: mouth in [place] 360-1,200 16 the Medical mg CpDR morning Branch and 360 mg in the evening. aspirin 81 2022-0 Yes 81mg Take 1 Unive rs mg EC 4-04 tablet by ity of tablet 17:58: mouth in [place] 16 the Medical morning. Branch Will start [...] it y of capsule 17:58: mouth in [place] [address] the Medical morning. Branch metoprolol 2022-0 Yes 25mg Take 1 Unive rs tartrate 25 4-04 tablet by ity of mg tablet 17:58: mouth in [facility] 16 the Medical morning Branch and 1 tablet in the evening. allopurinoL 2022-0 Yes 300mg Take 1 Uni vers 300 mg 4-04 tablet by ity of tablet 17:58: mouth in [place] [address] the Medical morning. Branch arformotero 2022-0 Yes 15ug Inhale 2 Un elizabeth L 15 mcg/2 4-04 mL 2 (two) ity of mL 17:58: times [place] nebulizer 16 daily as Medica l solution needed. Branch clopidogreL 2022-0 Yes 75mg Take 1 Univ ers 75 mg 4-04 tablet by ity of tablet 17:58: mouth in [place] [address] the Medical morning. Branch dutasteride 2022-0 Yes .5mg Take 1 Univ ers 0.5 mg 4-04 capsule by ity of capsule 17:58: mouth in [place] [address] the Medical morning. Branch rosuvastati 2022-0 Yes 20mg Take 1 Univ ers n 20 mg 4-04 tablet by ity of tablet 17:58: mouth in [place] [address] the Medical morning. Branch omega 2022-0 Yes 360mg Take 360 Univers 3-dha-epa-f 4-04 mg by ity of deejay oil 17:58: mouth in [place] 360-1,200 16 the Medical mg CpDR morning Branch and 360 mg in the evening. aspirin 81 3-0 Yes 81mg Take 1 Unive rs mg EC 4-04 tablet by ity of tablet 17:58: mouth in [place] 16 the Medical morning. Branch Will start when stops plavix on 07/06/22 albuterol 3-0 Yes 1.25mg Use 3 mL Un elizabeth 1.25 mg/3 4-04 as ity of mL 17:58: directed [place] nebulizer 16 every 6 Medical solution (six) Branch hours as needed for Wheezing. metoprolol 3-0 Yes Take by Univ ers succinate 4-04 mouth. ity of 100 mg CSpX 17:58: [place] 16 Medical Branch Vitamin E 2023-0 Yes Take by Unive rs 100 4-04 [...] it y of capsule 17:58: mouth in [place] 16 the Medical morning. Branch metoprolol 2022-0 Yes 25mg Take 1 Unive rs tartrate 25 4-04 tablet by ity of mg tablet 17:58: mouth in [facility] 16 the Medical morning Branch and 1 tablet in the evening. allopurinoL 2022-0 Yes 300mg Take 1 Uni vers 300 mg 4-04 tablet by ity of tablet 17:58: mouth in [place] 16 the Medical morning. Branch arformotero 2022-0 Yes 15ug Inhale 2 Un elizabeth L 15 mcg/2 4-04 mL 2 (two) ity of mL 17:58: times [place] nebulizer 16 daily as Medica l solution needed. Branch clopidogreL 2022-0 Yes 75mg Take 1 Univ ers 75 mg 4-04 tablet by ity of tablet 17:58: mouth in [place] 16 the Medical morning. Branch dutasteride 2022-0 Yes .5mg Take 1 Univ ers 0.5 mg 4-04 capsule by ity of capsule 17:58: mouth in [place] 16 the Medical morning. Branch rosuvastati 2022-0 Yes 20mg Take 1 Univ ers n 20 mg 4-04 tablet by ity of tablet 17:58: mouth in [place] 16 the Medical morning. Branch omega 2022-0 Yes 360mg Take 360 Univers 3-dha-epa-f 4-04 mg by ity of deejay oil 17:58: mouth in [place] 360-1,200 16 the Medical mg CpDR morning Branch and 360 mg in the evening. aspirin 81 2022-0 Yes 81mg Take 1 Unive rs mg EC 4-04 tablet by ity of tablet 17:58: mouth in [place] 16 the Medical morning. Branch Will start [...] it y of capsule 17:58: mouth in [place] 16 the Medical morning. Branch metoprolol 2022-0 Yes 25mg Take 1 Unive rs tartrate 25 4-04 tablet by ity of mg tablet 17:58: mouth in [facility] 16 the Medical morning Branch and 1 tablet in the evening. allopurinoL 2022-0 Yes 300mg Take 1 Uni vers 300 mg 4-04 tablet by ity of tablet 17:58: mouth in [place] [address] the Medical morning. Branch arformotero 2022-0 Yes 15ug Inhale 2 Un elizabeth L 15 mcg/2 4-04 mL 2 (two) ity of mL 17:58: times [place] nebulizer 16 daily as Medica l solution needed. Branch clopidogreL 2022-0 Yes 75mg Take 1 Univ ers 75 mg 4-04 tablet by ity of tablet 17:58: mouth in [place] 16 the Medical morning. Branch dutasteride 2022-0 Yes .5mg Take 1 Univ ers 0.5 mg 4-04 capsule by ity of capsule 17:58: mouth in [place] 16 the Medical morning. Branch rosuvastati 2022-0 Yes 20mg Take 1 Univ ers n 20 mg 4-04 tablet by ity of tablet 17:58: mouth in [place] 16 the Medical morning. Branch omega 2022-0 Yes 360mg Take 360 Univers 3-dha-epa-f 4-04 mg by ity of deejay oil 17:58: mouth in [place] 360-1,200 16 the Medical mg CpDR morning Branch and 360 mg in the evening. aspirin 81 2022-0 Yes 81mg Take 1 Unive rs mg EC 4-04 tablet by ity of tablet 17:58: mouth in [place] 16 the Medical morning. Branch Will start [...] it y of capsule 17:58: mouth in [place] 16 the Medical morning. Branch metoprolol 2022-0 Yes 25mg Take 1 Unive rs tartrate 25 4-04 tablet by ity of mg tablet 17:58: mouth in [facility] 16 the Medical morning Branch and 1 tablet in the evening. allopurinoL 2022-0 Yes 300mg Take 1 Uni vers 300 mg 4-04 tablet by ity of tablet 17:58: mouth in [place] 16 the Medical morning. Branch arformotero 2022-0 Yes 15ug Inhale 2 Un elizabeth L 15 mcg/2 4-04 mL 2 (two) ity of mL 17:58: times [place] nebulizer 16 daily as Medica l solution needed. Branch clopidogreL 2022-0 Yes 75mg Take 1 Univ ers 75 mg 4-04 tablet by ity of tablet 17:58: mouth in [place] [address] the Medical morning. Branch dutasteride 2022-0 Yes .5mg Take 1 Univ ers 0.5 mg 4-04 capsule by ity of capsule 17:58: mouth in [place] 16 the Medical morning. Branch rosuvastati 2022-0 Yes 20mg Take 1 Univ ers n 20 mg 4-04 tablet by ity of tablet 17:58: mouth in [place] 16 the Medical morning. Branch omega 2022-0 Yes 360mg Take 360 Univers 3-dha-epa-f 4-04 mg by ity of deejay oil 17:58: mouth in [place] 360-1,200 16 the Medical mg CpDR morning Branch and 360 mg in the evening. aspirin 81 2022-0 Yes 81mg Take 1 Unive rs mg EC 4-04 tablet by ity of tablet 17:58: mouth in [place] 16 the Medical morning. Branch Will start [...] Puffs ity of sulfate 17:58: every 6 [place] (COMBIVENT 16 (six) Medical INHALE) hours as Branch needed for Wheezing. Fenofibric 2022-0 Yes 135mg Take 1 Univ ers Acid 135 mg 4-04 capsule by it y of capsule 17:58: mouth in [place] 16 the Medical morning. Branch metoprolol 2022-0 Yes 25mg Take 1 Unive rs tartrate 25 4-04 tablet by ity of mg tablet 17:58: mouth in [facility] 16 the Medical morning Branch and 1 tablet in the evening. allopurinoL 2022-0 Yes 300mg Take 1 Uni vers 300 mg 4-04 tablet by ity of tablet 17:58: mouth in [place] 16 the Medical morning. Branch arformotero 2022-0 Yes 15ug Inhale 2 Un elizabeth L 15 mcg/2 4-04 mL 2 (two) ity of mL 17:58: times [place] nebulizer 16 daily as Medica l solution needed. Branch clopidogreL 2022-0 Yes 75mg Take 1 Univ ers 75 mg 4-04 tablet by ity of tablet 17:58: mouth in [place] [address] the Medical morning. Branch dutasteride 2022-0 Yes .5mg Take 1 Univ ers 0.5 mg 4-04 capsule by ity of capsule 17:58: mouth in [place] 16 the Medical morning. Branch rosuvastati 2022-0 Yes 20mg Take 1 Univ ers n 20 mg 4-04 tablet by ity of tablet 17:58: mouth in [place] 16 the Medical morning. Branch omega 2022-0 Yes 360mg Take 360 Univers 3-dha-epa-f 4-04 mg by ity of deejay oil 17:58: mouth in [place] 360-1,200 16 the Medical mg CpDR morning Branch and 360 mg in the evening. aspirin 81 2022-0 Yes 81mg Take 1 Unive rs mg EC 4-04 tablet by ity of tablet 17:58: mouth in [place] [address] the Medical morning. Branch Will start when [...] it y of capsule 17:58: mouth in [place] [address] the Medical morning. Branch metoprolol 2022-0 Yes 25mg Take 1 Unive rs tartrate 25 4-04 tablet by ity of mg tablet 17:58: mouth in [facility] 16 the Medical morning [...] by ity of capsule 17:58: mouth in [place] 16 the Medical morning. Branch rosuvastati 2022-0 Yes 20mg Take 1 Univ ers n 20 mg 4-04 tablet by ity of tablet 17:58: mouth in [place] 16 the Medical morning. Branch omega 2022-0 [...] it y of capsule 17:58: mouth in [place] 16 the Medical morning. Branch metoprolol 2022-0 Yes 25mg Take 1 Unive rs tartrate 25 4-04 tablet by ity of mg tablet 17:58: mouth in [facility] 16 the Medical morning Branch and 1 tablet in the evening. allopurinoL 2022-0 Yes 300mg Take 1 Uni vers 300 mg 4-04 tablet by ity of tablet 17:58: mouth in [place] 16 the Medical morning. Branch arformotero 2022-0 Yes 15ug Inhale 2 Un elizabeth L 15 mcg/2 4-04 mL 2 (two) ity of mL 17:58: times [place] nebulizer 16 daily as Medica l solution needed. Branch clopidogreL 2022-0 Yes 75mg Take 1 Univ ers 75 mg 4-04 tablet by ity of tablet 17:58: mouth in [place] [address] the Medical morning. Branch dutasteride 2022-0 Yes .5mg Take 1 Univ ers 0.5 mg 4-04 capsule by ity of capsule 17:58: mouth in [place] [address] the Medical morning. Branch rosuvastati 2022-0 Yes 20mg Take 1 Univ ers n 20 mg 4-04 tablet by ity of tablet 17:58: mouth in [place] 16 the Medical morning. Branch omega 2022-0 Yes 360mg Take 360 Univers 3-dha-epa-f 4-04 mg by ity of deejay oil 17:58: mouth in [place] 360-1,200 16 the Medical mg CpDR morning Branch and 360 mg in the evening. aspirin 81 2022-0 Yes 81mg Take 1 Unive rs mg EC 4-04 tablet by ity of tablet 17:58: mouth in [place] 16 the Medical morning. Branch Will start [...] it y of capsule 17:58: mouth in [place] 16 the Medical morning. Branch metoprolol 2022-0 Yes 25mg Take 1 Unive rs tartrate 25 4-04 tablet by ity of mg tablet 17:58: mouth in [facility] 16 the Medical morning Branch and 1 tablet in the evening. allopurinoL 2022-0 Yes 300mg Take 1 Uni vers 300 mg 4-04 tablet by ity of tablet 17:58: mouth in [place] 16 the Medical morning. Branch arformotero 2022-0 Yes 15ug Inhale 2 Un elizabeth L 15 mcg/2 4-04 mL 2 (two) ity of mL 17:58: times [place] nebulizer 16 daily as Medica l solution needed. Branch clopidogreL 2022-0 Yes 75mg Take 1 Univ ers 75 mg 4-04 tablet by ity of tablet 17:58: mouth in [place] 16 the Medical morning. Branch dutasteride 2022-0 Yes .5mg Take 1 Univ ers 0.5 mg 4-04 capsule by ity of capsule 17:58: mouth in [place] 16 the Medical morning. Branch rosuvastati 2022-0 Yes 20mg Take 1 Univ ers n 20 mg 4-04 tablet by ity of tablet 17:58: mouth in [place] 16 the Medical morning. Branch omega 2022-0 Yes 360mg Take 360 Univers 3-dha-epa-f 4-04 mg by ity of deejay oil 17:58: mouth in [place] 360-1,200 16 the Medical mg CpDR morning Branch and 360 mg in the evening. aspirin 81 2022-0 Yes 81mg Take 1 Unive rs mg EC 4-04 tablet by ity of tablet 17:58: mouth in [place] 16 the Medical morning. Branch Will start [...] it y of capsule 17:58: mouth in [place] 16 the Medical morning. Branch metoprolol 2022-0 Yes 25mg Take 1 Unive rs tartrate 25 4-04 tablet by ity of mg tablet 17:58: mouth in [facility] 16 the Medical morning Branch and 1 tablet in the evening. allopurinoL 2022-0 Yes 300mg Take 1 Uni vers 300 mg 4-04 tablet by ity of tablet 17:58: mouth in [place] 16 the Medical morning. Branch arformotero 2022-0 Yes 15ug Inhale 2 Un elizabeth L 15 mcg/2 4-04 mL 2 (two) ity of mL 17:58: times [place] nebulizer 16 daily as Medica l solution needed. Branch clopidogreL 2022-0 Yes 75mg Take 1 Univ ers 75 mg 4-04 tablet by ity of tablet 17:58: mouth in [place] 16 the Medical morning. Branch dutasteride 2022-0 Yes .5mg Take 1 Univ ers 0.5 mg 4-04 capsule by ity of capsule 17:58: mouth in [place] 16 the Medical morning. Branch rosuvastati 2022-0 Yes 20mg Take 1 Univ ers n 20 mg 4-04 tablet by ity of tablet 17:58: mouth in [place] 16 the Medical morning. Branch omega 3-0 Yes 360mg Take 360 Univers 3-dha-epa-f 4-04 mg by ity of deejay oil 17:58: mouth in [place] 360-1,200 16 the Medical mg CpDR morning Branch and 360 mg in the evening. aspirin 81 2022-0 Yes 81mg Take 1 Unive rs mg EC 4-04 tablet by ity of tablet 17:58: mouth in [place] 16 the Medical morning. Branch Will start [...] it y of capsule 17:58: mouth in [place] [address] the Medical morning. Branch metoprolol 2022-0 Yes 25mg Take 1 Unive rs tartrate 25 4-04 tablet by ity of mg tablet 17:58: mouth in [facility] 16 the Medical morning Branch and 1 tablet in the evening. allopurinoL 2022-0 Yes 300mg Take 1 Uni vers 300 mg 4-04 tablet by ity of tablet 17:58: mouth in [place] 16 the Medical morning. Branch arformotero 2022-0 Yes 15ug Inhale 2 Un elizabeth L 15 mcg/2 4-04 mL 2 (two) ity of mL 17:58: times [place] nebulizer 16 daily as Medica l solution needed. Branch clopidogreL 2022-0 Yes 75mg Take 1 Univ ers 75 mg 4-04 tablet by ity of tablet 17:58: mouth in [place] [address] the Medical morning. Branch dutasteride 2022-0 Yes .5mg Take 1 Univ ers 0.5 mg 4-04 capsule by ity of capsule 17:58: mouth in [place] [address] the Medical morning. Branch rosuvastati 2022-0 Yes 20mg Take 1 Univ ers n 20 mg 4-04 tablet by ity of tablet 17:58: mouth in [place] 16 the Medical morning. Branch omega 2022-0 Yes 360mg Take 360 Univers 3-dha-epa-f 4-04 mg by ity of deejay oil 17:58: mouth in [place] 360-1,200 16 the Medical mg CpDR morning Branch and 360 mg in the evening. aspirin 81 2022-0 Yes 81mg Take 1 Unive rs mg EC 4-04 tablet by ity of tablet 17:58: mouth in [place] 16 the Medical morning. Branch Will start when stops plavix on 07/06/22 albuterol 2022-0 Yes 1.25mg Use 3 mL Un elizabeth 1.25 mg/3 4-04 as ity of mL 17:58: directed [place] nebulizer 16 every 6 Medical solution (six) Branch hours as needed for Wheezing. metoprolol 2022-0 Yes Take by Univ ers succinate 4-04 mouth. ity of 100 mg CSpX 17:58: [place] [address] Medical Branch Vitamin E 2022-0 Yes Take [...] it y of capsule 17:58: mouth in [place] 16 the Medical morning. Branch metoprolol 2022-0 Yes 25mg Take 1 Unive rs tartrate 25 4-04 tablet by ity of mg tablet 17:58: mouth in [facility] 16 the Medical morning Branch and 1 tablet in the evening. allopurinoL 2022-0 Yes 300mg Take 1 Uni vers 300 mg 4-04 tablet by ity of tablet 17:58: mouth in [place] 16 the Medical morning. Branch arformotero 2022-0 Yes 15ug Inhale 2 Un elizabeth L 15 mcg/2 4-04 mL 2 (two) ity of mL 17:58: times [place] nebulizer 16 daily as Medica l solution needed. Branch clopidogreL 2022-0 Yes 75mg Take 1 Univ ers 75 mg 4-04 tablet by ity of tablet 17:58: mouth in [place] 16 the Medical morning. Branch dutasteride 2022-0 Yes .5mg Take 1 Univ ers 0.5 mg 4-04 capsule by ity of capsule 17:58: mouth in [place] 16 the Medical morning. Branch rosuvastati 2022-0 Yes 20mg Take 1 Univ ers n 20 mg 4-04 tablet by ity of tablet 17:58: mouth in [place] 16 the Medical morning. Branch omega 2022-0 Yes 360mg Take 360 Univers 3-dha-epa-f 4-04 mg by ity of deejay oil 17:58: mouth in [place] 360-1,200 16 the Medical mg CpDR morning Branch and 360 mg in the evening. aspirin 81 2022-0 Yes 81mg Take 1 Unive rs mg EC 4-04 tablet by ity of tablet 17:58: mouth in [place] 16 the Medical morning. Branch Will start [...] it y of capsule 17:58: mouth in [place] 16 the Medical morning. Branch metoprolol 2022-0 Yes 25mg Take 1 Unive rs tartrate 25 4-04 tablet by ity of mg tablet 17:58: mouth in [facility] 16 the Medical morning Branch and 1 tablet in the evening. allopurinoL 2022-0 Yes 300mg Take 1 Uni vers 300 mg 4-04 tablet by ity of tablet 17:58: mouth in [place] 16 the Medical morning. Branch arformotero 2022-0 Yes 15ug Inhale 2 Un elizabeth L 15 mcg/2 4-04 mL 2 (two) ity of mL 17:58: times [place] nebulizer 16 daily as Medica l solution needed. Branch clopidogreL 0 Yes 75mg Take 1 Univ ers 75 mg 4-04 tablet by ity of tablet 17:58: mouth in [place] 16 the Medical morning. Branch dutasteride 0 Yes .5mg Take 1 Univ ers 0.5 mg 4-04 capsule by ity of capsule 17:58: mouth in [place] 16 the Medical morning. Branch rosuvastati 0 Yes 20mg Take 1 Univ ers n 20 mg 4-04 tablet by ity of tablet 17:58: mouth in [place] 16 the Medical morning. Branch omega 0 Yes 360mg Take 360 [facility] 3-dha-epa-f 4-04 mg by ity of deejay oil 17:58: mouth in [place] 360-1,200 16 the Medical mg CpDR morning Branch and 360 mg in the evening. aspirin 81 2022-0 Yes 81mg Take 1 Unive rs mg EC 4-04 tablet by ity of tablet 17:58: mouth in [place] 16 the Medical morning. Branch Will start [...] it y of capsule 17:58: mouth in [place] [address] the Medical morning. Branch metoprolol 2022-0 Yes 25mg Take 1 Unive rs tartrate 25 4-04 tablet by ity of mg tablet 17:58: mouth in [facility] 16 the Medical morning Branch and 1 tablet in the evening. allopurinoL 2022-0 Yes 300mg Take 1 Uni vers 300 mg 4-04 tablet by ity of tablet 17:58: mouth in [place] [address] the Medical morning. Branch arformotero 2022-0 Yes 15ug Inhale 2 Un elizabeth L 15 mcg/2 4-04 mL 2 (two) ity of mL 17:58: times [place] nebulizer 16 daily as Medica l solution needed. Branch clopidogreL 2022-0 Yes 75mg Take 1 Univ ers 75 mg 4-04 tablet by ity of tablet 17:58: mouth in [place] [address] the Medical morning. Branch dutasteride 2022-0 Yes .5mg Take 1 Univ ers 0.5 mg 4-04 capsule by ity of capsule 17:58: mouth in [place] [address] the Medical morning. Branch rosuvastati 2022-0 Yes 20mg Take 1 Univ ers n 20 mg 4-04 tablet by ity of tablet 17:58: mouth in [place] [address] the Medical morning. Branch omega 2022-0 Yes 360mg Take 360 [facility] 3-dha-epa-f 4-04 mg by ity of deejay oil 17:58: mouth in [place] 360-1,200 16 the Medical mg CpDR morning Branch and 360 mg in the evening. aspirin 81 2022-0 Yes 81mg Take 1 Unive rs mg EC 4-04 tablet by ity of tablet 17:58: mouth in [place] [address] the Medical morning. Branch Will start when stops plavix on 07/06/22 albuterol 2022-0 Yes 1.25mg Use 3 mL Un elizabeth 1.25 mg/3 4-04 as ity of mL 17:58: directed [place] nebulizer 16 every 6 Medical solution (six) Branch hours as needed for Wheezing. metoprolol 2022-0 Yes Take by Univ ers succinate 4-04 mouth. ity of 100 mg CSpX 17:58: [place] [address] Medical Branch Vitamin E 2022-0 Yes Take [...] it y of capsule 17:58: mouth in [place] 16 the Medical morning. Branch metoprolol 2022-0 Yes 25mg Take 1 Unive rs tartrate 25 4-04 tablet by ity of mg tablet 17:58: mouth in [facility] 16 the Medical morning Branch and 1 tablet in the evening. allopurinoL 2022-0 Yes 300mg Take 1 Uni vers 300 mg 4-04 tablet by ity of tablet 17:58: mouth in [place] 16 the Medical morning. Branch arformotero 2022-0 Yes 15ug Inhale 2 Un elizabeth L 15 mcg/2 4-04 mL 2 (two) ity of mL 17:58: times [place] nebulizer 16 daily as Medica l solution needed. Branch clopidogreL 2022-0 Yes 75mg Take 1 Univ ers 75 mg 4-04 tablet by ity of tablet 17:58: mouth in [place] 16 the Medical morning. Branch dutasteride 2022-0 Yes .5mg Take 1 Univ ers 0.5 mg 4-04 capsule by ity of capsule 17:58: mouth in [place] 16 the Medical morning. Branch rosuvastati 2022-0 [...] by ity of tablet 17:58: mouth in [place] 16 the Medical morning. Branch Will start [...] it y of capsule 17:58: mouth in [place] 16 the Medical morning. Branch metoprolol 2022-0 Yes 25mg Take 1 Unive rs tartrate 25 4-04 tablet by ity of mg tablet 17:58: mouth in [facility] 16 the Medical morning Branch and 1 tablet in the evening. allopurinoL 2022-0 Yes 300mg Take 1 Uni vers 300 mg 4-04 tablet by ity of tablet 17:58: mouth in [place] [address] the Medical morning. Branch arformotero 2022-0 Yes 15ug Inhale 2 Un elizabeth L 15 mcg/2 4-04 mL 2 (two) ity of mL 17:58: times [place] nebulizer 16 daily as Medica l solution needed. Branch clopidogreL 2022-0 Yes 75mg Take 1 Univ ers 75 mg 4-04 tablet by ity of tablet 17:58: mouth in [place] [address] the Medical morning. Branch dutasteride 2022-0 Yes .5mg Take 1 Univ ers 0.5 mg 4-04 capsule by ity of capsule 17:58: mouth in [place] [address] the Medical morning. Branch rosuvastati 2022-0 Yes 20mg Take 1 Univ ers n 20 mg 4-04 tablet by ity of tablet 17:58: mouth in [place] 16 the Medical morning. Branch omega 2022-0 Yes 360mg Take 360 [facility] 3-dha-epa-f 4-04 mg by ity of deejay oil 17:58: mouth in [place] 360-1,200 16 the Medical mg CpDR morning Branch and 360 mg in the evening. aspirin 81 2022-0 Yes 81mg Take 1 Unive rs mg EC 4-04 tablet by ity of tablet 17:58: mouth in [place] 16 the Medical morning. Branch Will start [...] it y of capsule 17:58: mouth in [place] [address] the Medical morning. Branch metoprolol 2022-0 Yes 25mg Take 1 Unive rs tartrate 25 4-04 tablet by ity of mg tablet 17:58: mouth in [facility] 16 the Medical morning Branch and 1 tablet in the evening. allopurinoL 2022-0 Yes 300mg Take 1 Uni vers 300 mg 4-04 tablet by ity of tablet 17:58: mouth in [place] 16 the Medical morning. Branch arformotero 2022-0 Yes 15ug Inhale 2 Un elizabeth L 15 mcg/2 4-04 mL 2 (two) ity of mL 17:58: times [place] nebulizer 16 daily as Medica l solution needed. Branch clopidogreL 3-0 Yes 75mg Take 1 Univ ers 75 mg 4-04 tablet by ity of tablet 17:58: mouth in [place] [address] the Medical morning. Branch dutasteride 2022-0 Yes .5mg Take 1 Univ ers 0.5 mg 4-04 capsule by ity of capsule 17:58: mouth in [place] [address] the Medical morning. Branch rosuvastati 2022-0 Yes [...] 360 mg in the evening. aspirin 81 0 Yes 81mg Take 1 Unive rs mg EC 4-04 tablet by ity of tablet 17:58: mouth in [place] 16 the Medical morning. Branch Will start when stops plavix on 07/06/22 NaCl 0.9% 0 Yes 1000mL at 42 Unive rs (NS) IV 4-04 mL/hr, IV ity of infusion 16:15: [place] 1,000 mL 00 CONTINUOUS Medic al , Starting Branch on Sat07/10/22 at 1115, Until Discontinu ed, Routine, DSU Pre-op NaCl 0.9% 0 2022- No 1000mL at 42 Univ ers [...] Indication s: acute pain traMADoL 50 2022-0 2022- No 4647 50mg [...] Indication s: acute pain traMADoL 50 2022-0 2022- No 4647 50mg Take 1 Uni vers mg tablet 04 04-12 tablet by ity of 00:00: 04:59 mouth [place] 00 :00 every 8 Medical (eight) Branch hours as needed for Pain (scale 4-6) for up to 7 days. Indication s: acute pain traMADoL 50 2022-0 2022- No 4647 50mg Take 1 Uni vers mg tablet 07-10 04-12 tablet by ity of 00:00: 04:59 mouth [...] by ity of tablet 11:17: mouth in [place] 53 the Medical morning. Branch Will start when stops plavix on 07/06/22 arformotero 2022-0 2022- No 15ug Use 2 [...] 0 Yes Take by Univ ers succinate 3-30 mouth. ity of 100 mg CSpX 11:10: [place] [id number] Medical Branch Vitamin E 0 Yes Take by Unive rs 100 3-30 mouth. ity of unit/0.25 11:10: [place] mL Drop 50 Medical Branch ipratropium 2022-0 Yes 2{puff} Inhale 2 Univers /albuterol 3-30 Puffs ity of sulfate 11:10: every 6 [place] (COMBIVENT 50 (six) Medical INHALE) hours as Branch needed for Wheezing. Fenofibric 0 Yes 135mg Take 1 Univ ers Acid 135 mg 3-30 capsule by it y of capsule 11:10: mouth in [place] [address] the Medical morning. Branch metoprolol 0 Yes 25mg Take 1 Unive rs tartrate 25 3-30 tablet by ity of mg tablet 11:10: mouth in [place] [address] the Medical morning Branch and 1 tablet in the evening. allopurinoL 2022-0 Yes 300mg Take 1 Uni vers 300 mg 3-30 tablet by ity of tablet 11:10: mouth in [place] [address] the Medical morning. Branch clopidogreL 0 Yes 75mg Take 1 Univ ers 75 mg 3-30 tablet by ity of tablet 11:10: mouth in [place] [address] the Medical morning. Branch dutasteride 0 Yes .5mg Take 1 Univ ers 0.5 mg 3-30 capsule by ity of capsule 11:10: mouth in [place] [address] the Medical morning. Branch rosuvastati 0 Yes 20mg Take 1 Univ ers n 20 mg 3-30 tablet by ity of tablet 11:10: mouth in [place] [address] the Medical morning. Branch aspirin 81 2022-0 3- No 81mg Take 81 mg [facility] mg Cap 3-28 -28 by mouth ity of 16:08: 00:00 daily. [place] 08 :00 Medical Branch aspirin 81 3-0 2023- No 81mg Take 81 mg [facility] mg Cap 3-28 -28 by mouth ity of 16:08: 00:00 daily. [place] 08 :00 [facility] Branch aspirin 81 3-0 3- No 81mg Take 81 mg [facility] mg Cap 3-28 -28 by mouth ity of 16:08: 00:00 daily. [place] 08 :00 Medical Branch aspirin 81 2022-0 3- No 81mg Take 81 mg [facility] mg Cap 07-03 by mouth ity of 16:08: 00:00 daily. [place] 08 :00 Medical Branch Vitamin E 2022-0 Yes Take by Unive rs 100 - mouth. ity of unit/0.25 15:46: [place] mL Drop 30 Medical Branch Vitamin E 2022-0 Yes Take by Unive rs 100 3- mouth. ity of unit/0.25 15:46: [place] mL Drop 30 Medical Branch albuterol 2022-0 Yes 1.25mg Use 3 mL Un elizabeth 1.25 mg/3 07-03 as ity of mL 15:46: directed [place] nebulizer 21 every 6 Medical solution (six) Branch hours as needed for Wheezing. arformotero 0 Yes 15ug Use 2 mL Un elizabeth L 15 mcg/2 07-03 as ity of mL 15:46: directed [place] nebulizer 21 in the Medical solution morning Branch and 2 mL in the evening. metoprolol 0 Yes Take by Univ ers succinate - mouth. ity of 100 mg CSpX 15:46: [place] 21 Medical Branch ipratropium 0 Yes 2{puff} Inhale 2 Univers /albuterol 3- Puffs ity of sulfate 15:46: every 6 [place] (COMBIVENT 21 (six) Medical INHALE) hours as Branch needed for Wheezing. Fenofibric 0 Yes 135mg Take 1 Univ ers Acid 135 mg - capsule by it y of capsule 15:46: mouth in [place] 21 the Medical morning. Branch metoprolol 2022-0 Yes 25mg Take 1 Unive rs tartrate 25 - tablet by ity of mg tablet 15:46: mouth in [facility] 21 the Medical morning. Branch allopurinoL 2022-0 Yes 300mg Take 1 Uni vers 300 mg - tablet by ity of tablet 15:46: mouth in [place] 21 the Medical morning. Branch arformotero 2022-0 Yes 15ug Inhale 2 Un elizabeth L 15 mcg/2 - mL 2 (two) ity of mL 15:46: times [place] nebulizer 21 daily as Medica l solution needed. Branch clopidogreL 2022-0 Yes 75mg Take 1 Univ ers 75 mg 3-28 tablet by ity of tablet 15:46: mouth in [place] 21 the Medical morning. Branch dutasteride 2022-0 Yes .5mg Take 1 Univ ers 0.5 mg 3-28 capsule by ity of capsule 15:46: mouth in [place] 21 the Medical morning. Branch rosuvastati 2022-0 Yes 20mg Take 1 Univ ers n 20 mg 3-28 tablet by ity of tablet 15:46: mouth in [place] 21 the Medical morning. Branch albuterol 2022-0 [...] it y of capsule 15:46: mouth in [place] [address] the Medical morning. Branch metoprolol 2022-0 Yes 25mg Take 1 Unive rs tartrate 25 3-28 tablet by ity of mg tablet 15:46: mouth in [facility] 21 the Medical morning. Branch allopurinoL 2022-0 Yes 300mg Take 1 Uni vers 300 mg 3-28 tablet by ity of tablet 15:46: mouth in [place] [address] the Medical morning. Branch arformotero 2022-0 Yes 15ug Inhale 2 Un elizabeth L 15 mcg/2 3-28 mL 2 (two) ity of mL 15:46: times [place] nebulizer 21 daily as Medica l solution needed. Branch clopidogreL 2022-0 Yes 75mg Take 1 Univ ers 75 mg 3-28 tablet by ity of tablet 15:46: mouth in [place] [address] the Medical morning. Branch dutasteride 3-0 Yes .5mg Take 1 Univ ers 0.5 mg 3-28 capsule by ity of capsule 15:46: mouth in [place] [address] the Medical morning. Branch rosuvastati 3-0 Yes 20mg Take 1 Univ ers n 20 mg 3-28 tablet by ity of tablet 15:46: mouth in [place] [address] the Medical morning. Branch ezetimibe 3-0 Yes [id number] 10mg Take 1 Un elizabeth 10 mg 3-28 tablet by ity of tablet 00:00: mouth in [place] 00 the Medical morning. Branch ezetimibe 3-0 Yes [id number] 10mg Take 1 Un elizabeth 10 mg 3-28 tablet by ity of tablet 00:00: mouth in [place] 00 the Medical morning. Branch ezetimibe 3-0 Yes [id number] 10mg Take 1 Un elizabeth 10 mg 3-28 tablet by ity of tablet 00:00: mouth in [place] 00 the Medical morning. Branch ezetimibe 3-0 Yes [id number] 10mg Take 1 Un elizabeth 10 mg 3-28 tablet by ity of tablet 00:00: mouth in [place] 00 the Medical morning. Branch ezetimibe 3-0 Yes [id number] 10mg Take 1 Un elizabeth 10 mg 3-28 tablet by ity of tablet 00:00: mouth in [place] 00 the Medical morning. Branch ezetimibe 3-0 Yes [id number] 10mg Take 1 Un elizabeth 10 mg 3-28 tablet by ity of tablet 00:00: mouth in [place] 00 the Medical morning. Branch ezetimibe 3-0 Yes [id number] 10mg Take 1 Un elizabeth 10 mg 3-28 tablet by ity of tablet 00:00: mouth in [place] 00 the Medical morning. Branch ezetimibe 3-0 Yes [id number] 10mg Take 1 Un elizabeth 10 mg 3-28 tablet by ity of tablet 00:00: mouth in [place] 00 the Medical morning. Branch ezetimibe 3-0 Yes [id number] 10mg Take 1 Un elizabeth 10 mg 3-28 tablet by ity of tablet 00:00: mouth in [place] 00 the Medical morning. Branch ezetimibe 3-0 Yes [id number] 10mg Take 1 Un elizabeth 10 mg 3-28 tablet by ity of tablet 00:00: mouth in [place] 00 the Medical morning. Branch ezetimibe 2022-0 Yes [id number] 10mg Take 1 Un elizabeth 10 mg 3-28 tablet by ity of tablet 00:00: mouth in [place] 00 the Medical morning. Branch ezetimibe 2022-0 Yes [id number] 10mg Take 1 Un elizabeth 10 mg 3-28 tablet by ity of tablet 00:00: mouth in [place] 00 the Medical morning. Branch ezetimibe 2022-0 Yes [id number] 10mg Take 1 Un elizabeth 10 mg 3-28 tablet by ity of tablet 00:00: mouth in [place] 00 the Medical morning. Branch ezetimibe 2022-0 Yes [id number] 10mg Take 1 Un elizabeth 10 mg 3-28 tablet by ity of tablet 00:00: mouth in [place] 00 the Medical morning. Branch ezetimibe 2022- No [id number] 10mg Take 1 U nivers 10 mg 3-28 - tablet by ity of tablet 00:00: 00:00 mouth in [place] 00 :00 the Medical morning. Branch ezetimibe 2022- No [id number] 10mg Take 1 U nivers 10 mg 3-28 - tablet by ity of tablet 00:00: 00:00 mouth in [place] 00 :00 the Medical morning. Branch ezetimibe 2022-0 2022- No [id number] 10mg Take 1 U nivers 10 mg 3-28 - tablet by ity of tablet 00:00: 00:00 mouth in [place] 00 :00 the Medical morning. Branch allopurinoL 2022- No 300mg Take 300 Univers 300 mg 3- 03-23 mg by ity of tablet 10:07: 00:00 mouth [place] 18 :00 daily. Medical Branch dutasteride 2022-2022- No .5mg Take 0.5 U nivers (AVODART) - 03-23 mg by ity of 0.5 mg 10:07: 00:00 mouth [place] capsule 18 :00 daily. Medical Branch rosuvastati 2022-0 2022- No 20mg Take 20 mg Univers n (CRESTOR) 06-28 by mouth ity of 20 mg 10:07: :00 at [place] tablet 18 :00 bedtime. Medical Branch DULoxetine 2022- No 30mg Take 30 mg [facility] (CYMBALTA) 06-28 by mouth ity of 30 mg 10:: 00:00 daily. [place] capsule 18 :00 Medical Branch tamsulosin 2022- No Take by Uni vers 0.4 mg 24 06-28 mouth ity of hr capsule 10:07: 00:00 [place]. [place] 18 :00 Medical Branch pregabalin 2022- No 150mg Take 150 U nivers (LYRICA) 06-28- mg by ity of 150 mg 10:: :00 mouth 2 [place] capsule 18 :00 (two) [...] -umeclidin- 06-28 ity of vilanter 10:07: 00:00 [place] (TRELEGY 18 :00 Medical ELLIPTA) Branch 100-62.5-25 mcg DsDv allopurinoL 2022- No 300mg Take 300 Univers 300 mg 06-28 mg by ity of tablet 10:07: 00:00 mouth [place] 18 :00 daily. Medical Branch dutasteride 2022- No .5mg Take 0.5 U nivers (AVODART) 06-28- mg by ity of 0.5 mg 10:07: [...] ity of mg tablet 10:07: 00:00 daily. [place] 18 :00 Medical Branch Pantoprazol 2022- No 40mg Take 40 mg Univers e 06-28 by mouth ity of (PROTONIX) 10:07: 00:00 daily. [place] 40 mg 18 :00 Medical delayed-rel Branch ease suspension fluticasone 2022- No Inhale. Un elizabeth -umeclidin- 06-28 ity of vilanter 10:07: 00:00 [place] (TRELEGY 18 :00 Medical ELLIPTA) Branch 100-62.5-25 mcg DsDv allopurinoL 2022- No 300mg Take 300 Univers 300 mg 06-28- mg by ity of tablet 10:07: 00:00 mouth [place] 18 :00 daily. Medical Branch dutasteride 2022- No .5mg Take 0.5 U nivers (AVODART) 06-28- mg by ity of 0.5 mg 10:07: [...] No 150mg Take 150 U nivers (LYRICA) 06-28 mg by ity of 150 mg 10:07: 00:00 mouth 2 [place] capsule 18 :00 (two) Medical times Branch daily. clopidogreL 2022- No 75mg Take 75 mg Univers (PLAVIX) 75 06-28 by mouth ity of mg tablet 10:07: 00:00 daily. [place] 18 :00 Medical Branch Pantoprazol 2022- No 40mg Take 40 mg Univers e 06-28 by mouth ity of (PROTONIX) 10:07: 00:00 daily. [place] 40 mg 18 :00 Medical delayed-rel Branch ease suspension fluticasone 2022- No Inhale. Un elizabeth -umeclidin- 06-28 ity of vilanter 10:07: 00:00 [place] (TRELEGY 18 :00 Medical ELLIPTA) Branch 100-62.5-25 mcg DsDv rosuvastati Yes 20mg Take 1 Univ ers n 20 mg 3-23 tablet by ity of tablet 10:06: mouth in [place] 02 the Medical morning. Branch rosuvastati 0 Yes 20mg Take 1 Univ ers n 20 mg 3-23 tablet by ity of tablet 10:06: mouth in [place] the Medical morning. Branch rosuvastati 2022-0 Yes 20mg Take 1 Univ ers n 20 mg 3-23 tablet by ity of tablet 10:06: mouth in [place] 02 the Medical morning. Branch Fenofibric 0 Yes 135mg Take 1 Univ ers Acid 135 mg - capsule by it y of capsule 10:06: mouth in [place] the Medical morning. Branch metoprolol 0 Yes 25mg Take 1 Unive rs tartrate 25 3-23 tablet by ity of mg tablet 10:06: mouth in [place] [address] the Medical morning. Branch allopurinoL 2023-0 Yes 300mg Take 1 Uni vers 300 mg 3-23 tablet by ity of tablet 10:06: mouth in [place] [address] the Medical morning. Branch arformotero 2023-0 Yes 15ug Inhale 2 Un elizabeth L 15 mcg/2 3-23 mL 2 (two) ity of mL 10:06: times [place] nebulizer daily as Medica l solution needed. Branch clopidogreL 2023-0 Yes 75mg Take 1 Univ ers 75 mg 3-23 tablet by ity of tablet 10:06: mouth in [place] [address] the Medical morning. Branch dutasteride 2023-0 Yes .5mg Take 1 Univ ers 0.5 mg 3-23 capsule by ity of capsule 10:06: mouth in [place] [address] the Medical morning. Branch Fenofibric 2023-0 Yes 135mg Take 1 Univ ers Acid 135 mg 3-23 capsule by it y of capsule 10:06: mouth in [place] [address] the Medical morning. Branch metoprolol 2023-0 Yes 25mg Take 1 Unive rs tartrate 25 3-23 tablet by ity of mg tablet 10:06: mouth in [place] [address] the Medical morning. Branch allopurinoL 2023-0 Yes 300mg Take 1 Uni vers 300 mg 3-23 tablet by ity of tablet 10:06: mouth in [place] [address] the Medical morning. Branch arformotero 2023-0 Yes 15ug Inhale 2 Un elizabeth L 15 mcg/2 3-23 mL 2 (two) ity of mL 10:06: times [place] nebulizer daily as Medica l solution needed. Branch clopidogreL 2023-0 Yes 75mg Take 1 Univ ers 75 mg 3-23 tablet by ity of tablet 10:06: mouth in [place] [address] the Medical morning. Branch dutasteride 2023-0 Yes .5mg Take 1 Univ ers 0.5 mg 3-23 capsule by ity of capsule 10:06: mouth in [place] [address] the Medical morning. Branch Fenofibric 2023-0 Yes 135mg Take 1 Univ ers Acid 135 mg 3-23 capsule by it y of capsule 10:06: mouth in [place] [address] the Medical morning. Branch metoprolol 2023-0 Yes 25mg Take 1 Unive rs tartrate 25 3-23 tablet by ity of mg tablet 10:06: mouth in [facility] 01 the Medical morning. Branch allopurinoL 2022-0 Yes 300mg Take 1 Uni vers 300 mg 3-23 tablet by ity of tablet 10:06: mouth in [place] the Medical morning. Branch arformotero 2022-0 Yes 15ug Inhale 2 Un elizabeth L 15 mcg/2 3-23 mL 2 (two) ity of mL 10:06: times [place] nebulizer 01 daily as Medica l solution needed. Branch clopidogreL 2022-0 Yes 75mg Take 1 Univ ers 75 mg 3-23 tablet by ity of tablet 10:06: mouth in [place] the Medical morning. Branch dutasteride 2022-0 Yes .5mg Take 1 Univ ers 0.5 mg 3-23 capsule by ity of capsule 10:06: mouth in [place] the Medical morning. Branch ipratropium 2022-0 Yes [...] hours as Branch needed for Wheezing. albuterol 2023-0 Yes 2{puff} Inhale 2 U nivers 90 3-19 Puffs ity of mcg/actuati 00:00: every 6 [place] as on inhaler 00 (six) Medical hours as Branch needed for Wheezing. albuterol 2023-0 Yes 2{puff} Inhale 2 U nivers 90 3-19 Puffs ity of mcg/actuati 00:00: every 6 [place] as on inhaler 00 (six) Medical hours as Branch needed for Wheezing. DULoxetine 2023-0 Yes 60mg Take 1 Unive rs 60 mg 2-24 capsule by ity of capsule 00:00: mouth in [place] 00 the Medical morning. Branch DULoxetine 2023-0 Yes 60mg Take 1 Unive rs 60 mg 2-24 capsule by ity of capsule 00:00: mouth in [place] the Medical morning. Branch DULoxetine 2023-0 Yes 60mg Take 1 Unive rs 60 mg 2-24 capsule by ity of capsule 00:00: mouth in [place] the Medical morning. Branch DULoxetine 2023-0 Yes 60mg Take 1 Unive rs 60 mg 2-24 capsule by ity of capsule 00:00: mouth in [place] the Medical morning. Branch DULoxetine 2023-0 Yes 60mg Take 1 Unive rs 60 mg 2-24 capsule by ity of capsule 00:00: mouth in [place] the Medical morning. Branch DULoxetine 2023-0 Yes 60mg Take 1 Unive rs 60 mg 2-24 capsule by ity of capsule 00:00: mouth in [place] the Medical morning. Branch DULoxetine 2023-0 Yes 60mg Take 1 Unive rs 60 mg 2-24 capsule by ity of capsule 00:00: mouth in [place] the Medical morning. Branch DULoxetine 2023-0 Yes 60mg Take 1 Unive rs 60 mg 2-24 capsule by ity of capsule 00:00: mouth in [place] the Medical morning. Branch DULoxetine 2023-0 Yes 60mg Take 1 Unive rs 60 mg 2-24 capsule by ity of capsule 00:00: mouth in [place] the Medical morning. Branch DULoxetine 2023-0 Yes 60mg Take 1 Unive rs 60 mg 2-24 capsule by ity of capsule 00:00: mouth in [place] the Medical morning. Branch DULoxetine 2023-0 Yes 60mg Take 1 Unive rs 60 mg 2-24 capsule by ity of capsule 00:00: mouth in [place] the Medical morning. Branch DULoxetine 2023-0 Yes 60mg Take 1 Unive rs 60 mg 2-24 capsule by ity of capsule 00:00: mouth in [place] the Medical morning. Branch DULoxetine 2023-0 Yes 60mg Take 1 Unive rs 60 mg 2-24 capsule by ity of capsule 00:00: mouth in [place] the Medical morning. Branch DULoxetine 2023-0 Yes 60mg Take 1 Unive rs 60 mg 2-24 capsule by ity of capsule 00:00: mouth in [place] the Medical morning. Branch DULoxetine 2023-0 Yes 60mg Take 1 Unive rs 60 mg 2-24 capsule by ity of capsule 00:00: mouth in [place] the Medical morning. Branch DULoxetine 2023-0 Yes 60mg Take 1 Unive rs 60 mg 2-24 capsule by ity of capsule 00:00: mouth in [place] the Medical morning. Branch DULoxetine 2023-0 Yes 60mg Take 1 Unive rs 60 mg 2-24 capsule by ity of capsule 00:00: mouth in [place] the Medical morning. Branch DULoxetine 2023-0 Yes 60mg Take 1 Unive rs 60 mg 2-24 capsule by ity of capsule 00:00: mouth in [place] the Medical morning. Branch DULoxetine 2023-0 Yes 60mg Take 1 Unive rs 60 mg 2-24 capsule by ity of capsule 00:00: mouth in [place] the Medical morning. Branch DULoxetine 2023-0 Yes 60mg Take 1 Unive rs 60 mg 2-24 capsule by ity of capsule 00:00: mouth in [place] the Medical morning. Branch DULoxetine 2023-0 Yes 60mg Take 1 Unive rs 60 mg 2-24 capsule by ity of capsule 00:00: mouth in [place] the Medical morning. Branch DULoxetine 2023-0 Yes 60mg Take 1 Unive rs 60 mg 2-24 capsule by ity of capsule 00:00: mouth in [place] the Medical morning. Branch DULoxetine 2023-0 Yes 60mg Take 1 Unive rs 60 mg 2-24 capsule by ity of capsule 00:00: mouth in [place] the Medical morning. Branch hydrALAZINE 2023-0 Yes 50mg Take 1 Univ ers 50 mg 2-23 tablet by ity of tablet 00:00: mouth in [place] the Medical morning Branch and 1 tablet in the evening. spironolact 2023-0 Yes 50mg Take 1 Univ ers one 50 mg 2-23 tablet by ity o f tablet 00:00: mouth in [place] the morning. Branch hydrALAZINE 2023-0 Yes 50mg Take 1 Univ ers 50 mg 2-23 tablet by ity of tablet 00:00: mouth in [place] the Medical morning Branch and 1 tablet in the evening. spironolact 2023-0 Yes 50mg Take 1 Univ ers one 50 mg 2-23 tablet by ity o f tablet 00:00: mouth in [place] the morning. Branch hydrALAZINE 2023-0 Yes 50mg Take 1 Univ ers 50 mg 2-23 tablet by ity of tablet 00:00: mouth in [place] the Medical morning Branch and 1 tablet in the evening. spironolact 2023-0 Yes 50mg Take 1 Univ ers one 50 mg 2-23 tablet by ity o f tablet 00:00: mouth in [place] the morning. Branch hydrALAZINE 2023-0 Yes 100mg Take 2 Uni vers 50 mg 2-23 tablets by ity of tablet 00:00: mouth in [place] the Medical morning Branch and 2 tablets at noon and 2 tablets in the evening. spironolact 2023-0 Yes 50mg Take 1 Univ ers one 50 mg 2-23 tablet by ity o f tablet 00:00: mouth in [place] the morning. Branch hydrALAZINE 2023-0 Yes 100mg Take 2 Uni vers 50 mg 2-23 tablets by ity of tablet 00:00: mouth in [place] the Medical morning Branch and 2 tablets at noon and 2 tablets in the evening. spironolact 2023-0 Yes 50mg Take 1 Univ ers one 50 mg 2-23 tablet by ity o f tablet 00:00: mouth in [place] the Medical morning. Branch hydrALAZINE 2023-0 Yes 100mg Take 1 Uni vers 100 mg 2-23 tablet by ity of tablet 00:00: mouth in [place] the Medical morning Branch and 1 tablet at noon and 1 tablet in the evening. spironolact 2023-0 Yes 50mg Take 1 Univ ers one 50 mg 2-23 tablet by ity o f tablet 00:00: mouth in [place] the Medical morning. Branch hydrALAZINE 2023-0 Yes 100mg Take 1 Uni vers 100 mg 2-23 tablet by ity of tablet 00:00: mouth in [place] the Medical morning Branch and 1 tablet at noon and 1 tablet in the evening. spironolact 2023-0 Yes 50mg Take 1 Univ ers one 50 mg 2-23 tablet by ity o f tablet 00:00: mouth in [place] the Medical morning. Branch hydrALAZINE 2023-0 Yes 100mg Take 1 Uni vers 100 mg 2-23 tablet by ity of tablet 00:00: mouth in [place] the Medical morning Branch and 1 tablet at noon and 1 tablet in the evening. spironolact 2023-0 Yes 50mg Take 1 Univ ers one 50 mg 2-23 tablet by ity o f tablet 00:00: mouth in [place] the Medical morning. Branch hydrALAZINE 2023-0 Yes 100mg Take 1 Uni vers 100 mg 2-23 tablet by ity of tablet 00:00: mouth in [place] the Medical morning Branch and 1 tablet at noon and 1 tablet in the evening. spironolact 2023-0 Yes 50mg Take 1 Univ ers one 50 mg 2-23 tablet by ity o f tablet 00:00: mouth in [place] the morning. Branch hydrALAZINE 2023-0 Yes 100mg Take 1 Uni vers 100 mg 2-23 tablet by ity of tablet 00:00: mouth in [place] the Medical morning Branch and 1 tablet at noon and 1 tablet in the evening. spironolact 2023-0 Yes 50mg Take 1 Univ ers one 50 mg 2-23 tablet by ity o f tablet 00:00: mouth in [place] the Medical morning. Branch hydrALAZINE 2023-0 Yes 100mg Take 1 Uni vers 100 mg 2-23 tablet by ity of tablet 00:00: mouth in [place] the Medical morning Branch and 1 tablet at noon and 1 tablet in the evening. spironolact 2023-0 Yes 50mg Take 1 Univ ers one 50 mg 2-23 tablet by ity o f tablet 00:00: mouth in [place] 00 the Medical morning. Branch hydrALAZINE 2023-0 Yes 100mg Take 1 Uni vers 100 mg 2-23 tablet by ity of tablet 00:00: mouth in [place] 00 the Medical morning Branch and 1 tablet at noon and 1 tablet in the evening. spironolact 2023-0 Yes 50mg Take 1 Univ ers one 50 mg 2-23 tablet by ity o f tablet 00:00: mouth in [place] the Medical morning. Branch hydrALAZINE 2023-0 Yes 100mg Take 1 Uni vers 100 mg 2-23 tablet by ity of tablet 00:00: mouth in [place] the Medical morning Branch and 1 tablet at noon and 1 tablet in the evening. spironolact 2023-0 Yes 50mg Take 1 Univ ers one 50 mg 2-23 tablet by ity o f tablet 00:00: mouth in [place] the Medical morning. Branch hydrALAZINE 2023-0 Yes 100mg Take 1 [facility] vers 100 mg 2-23 tablet by ity of tablet 00:00: mouth in [place] the Medical morning Branch and 1 tablet at noon and 1 tablet in the evening. spironolact 2023-0 Yes 50mg Take 1 Univ ers one 50 mg 2-23 tablet by ity o f tablet 00:00: mouth in [place] the Medical morning. Branch hydrALAZINE 2023-0 Yes 100mg Take 1 [facility] vers 100 mg 2-23 tablet by ity of tablet 00:00: mouth in [place] the Medical morning Branch and 1 tablet at noon and 1 tablet in the evening. spironolact 2023-0 Yes 50mg Take 1 Univ ers one 50 mg 2-23 tablet by ity o f tablet 00:00: mouth in [place] the Medical morning. Branch hydrALAZINE 2023-0 Yes 100mg Take 1 [facility] vers 100 mg 2-23 tablet by ity of tablet 00:00: mouth in [place] the Medical morning Branch and 1 tablet at noon and 1 tablet in the evening. spironolact 2023-0 Yes 50mg Take 1 Univ ers one 50 mg 2-23 tablet by ity o f tablet 00:00: mouth in [place] the Medical morning. Branch hydrALAZINE 2023-0 Yes 100mg Take 1 [facility] vers 100 mg 2-23 tablet by ity of tablet 00:00: mouth in [place] the Medical morning Branch and 1 tablet at noon and 1 tablet in the evening. spironolact 2023-0 Yes 50mg Take 1 Univ ers one 50 mg 2-23 tablet by ity o f tablet 00:00: mouth in [place] 00 the Medical morning. Branch hydrALAZINE 2023-0 Yes 100mg Take 1 [facility] vers 100 mg 2-23 tablet by ity of tablet 00:00: mouth in [place] 00 the Medical morning Branch and 1 tablet at noon and 1 tablet in the evening. spironolact 2023-0 Yes 50mg Take 1 Univ ers one 50 mg 2-23 tablet by ity o f tablet 00:00: mouth in [place] 00 the Medical morning. Branch hydrALAZINE 2023-0 2023- No 100mg Take 1 Un elizabeth 100 mg 2-23 09-22 tablet by ity of tablet 00:00: 00:00 mouth in [place] 00 :00 the Medical morning Branch and 1 tablet at noon and 1 tablet in the evening. spironolact 2023-0 2023- No 50mg Take 1 Uni vers one 50 mg 2-23 09-22 tablet by ity of tablet 00:00: 00:00 mouth in [place] 00 :00 the Medical morning. Branch hydrALAZINE 2023-0 2023- No 100mg Take 1 Un elizabeth 100 mg 2-23 09-22 tablet by ity of tablet 00:00: 00:00 mouth in [place] 00 :00 the Medical morning Branch and 1 tablet at noon and 1 tablet in the evening. spironolact 2023-0 2023- No 50mg Take 1 Uni vers one 50 mg 2-23 09-22 tablet by ity of tablet 00:00: 00:00 mouth in [place] 00 :00 the Medical morning. Branch hydrALAZINE 2023-0 2023- No 100mg Take 1 Un elizabeth 100 mg 2-23 09-22 tablet by ity of tablet 00:00: 00:00 mouth in [place] 00 :00 the Medical morning Branch and 1 tablet at noon and 1 tablet in the evening. spironolact 2023-0 2023- No 50mg Take 1 Uni vers one 50 mg 2-23 09-22 tablet by ity of tablet 00:00: 00:00 mouth in [place] 00 :00 the Medical morning. Branch TRELEGY 2023-0 Yes 1{puff} Inhale 1 Uni vers ELLIPTA [...] mcg DsDv 00 morning. Medical Branch TRELEGY 0 Yes 1{puff} Inhale 1 Uni vers ELLIPTA [...] mcg DsDv 00 morning. Medical Branch ergocalcife 2022-0 3- No [id number] Take 1 U nivers rol, 05-08 capsule by ity of vitamin d2, 00:00: 04:59 [place] 1[place]250 [place]cg 00 :00 weekly. Medical (50,000 Branch unit) capsule ergocalcife 2022-0 2022- No [id number] Take 1 U nivers rol, 05-08 capsule by ity of vitamin d2, 00:00: 04:59 [place] 1,250 mcg 00 :00 weekly. Medical (50,000 Branch unit) capsule ergocalcife 2023-0 2023- No [id number] Take 1 U nivers rol, 05-08 05-02 capsule by ity of vitamin d2, 00:00: 04:59 mouth [place] 1,250 mcg 00 :00 weekly. Medical (50,000 Branch unit) capsule ergocalcife 2023-0 2023- No [id number] Take 1 U nivers rol, 05-08 05-02 capsule by ity of vitamin d2, 00:00: 04:59 [place] 1,250 mcg 00 :00 weekly. Medical (50,000 Branch unit) capsule ergocalcife 2023-0 2023- No [id number] Take 1 U nivers rol, 05-08- capsule by ity of vitamin d2, 00:00: 04:59 mouth [place] 1,250 mcg 00 :00 weekly. Medical (50,000 Branch unit) capsule ergocalcife 2023-0 2023- No [id number] Take 1 U nivers rol, 05-08 05-02 capsule by ity of vitamin d2, 00:00: 04:59 mouth [place] 1,250 mcg 00 :00 weekly. Medical (50,000 Branch unit) capsule MAGNESIUM 2023-0 2023- No 400mg Take 400 Un elizabeth ORAL 1- 05-02 mg by ity of 00:00: 04:59 mouth. [place] 00 :00 Medical Branch ergocalcife 2023-0 2023- No [id number] Take 1 U nivers rol, 05-08 05-02 capsule by ity of vitamin d2, 00:00: 04:59 mouth [place] 1,250 mcg 00 :00 weekly. Medical (50,000 Branch unit) capsule MAGNESIUM 2023-0 2023- No 400mg Take 400 Un elizabeth ORAL 1- 05-02 mg by ity of 00:00: 04:59 mouth. [place] 00 :00 Medical Branch ergocalcife 2023-0 2023- No [id number] Take 1 U nivers rol, 05-08 05-02 capsule by ity of vitamin d2, 00:00: 04:59 mouth [place] 1,250 mcg 00 :00 weekly. Medical (50,000 Branch unit) capsule MAGNESIUM 2023-0 2023- No 400mg Take 400 Un elizabeth ORAL 1-31 05-02 mg by ity of 00:00: 04:59 mouth. [place] 00 :00 Medical Branch ergocalcife 2023-0 2023- No [id number] Take 1 U nivers rol, 1- 05-02 capsule by ity of vitamin d2, 00:00: 04:59 mouth [place] 1,250 mcg 00 :00 weekly. Medical (50,000 Branch unit) capsule MAGNESIUM 2023-0 2023- No 400mg Take 400 Un elizabeth ORAL 1-31 05-02 mg by ity of 00:00: 04:59 mouth. [place] 00 :00 Medical Branch ergocalcife 2023-0 2023- No [id number] Take 1 U nivers rol, 1-31 05-02 capsule by ity of vitamin d2, 00:00: 04:59 mouth [place] 1,250 mcg 00 :00 weekly. Medical (50,000 Branch unit) capsule MAGNESIUM 2023-0 2023- No 400mg Take 400 Un elizabeth ORAL 1-31 05-02 mg by ity of 00:00: 04:59 mouth. [place] 00 :00 Medical Branch ergocalcife 2023-0 2023- No [id number] Take 1 U nivers rol, - 05-02 capsule by ity of vitamin d2, 00:00: 04:59 mouth [place] 1,250 mcg 00 :00 weekly. Medical (50,000 Branch unit) capsule MAGNESIUM 2023-0 2023- No 400mg Take 400 Un elizabeth ORAL 1-31 05-02 mg by ity of 00:00: 04:59 mouth. [place] 00 :00 Medical Branch amLODIPine 2023-0 Yes 5mg Take 1 Unive rs 5 mg tablet 1-26 tablet by ity of 00:00: mouth in [place] [address] the Medical morning Branch and 1 tablet in the evening. amLODIPine 2023-0 Yes 5mg Take 1 Unive rs 5 mg tablet 1-26 tablet by ity of 00:00: mouth in [place] [address] the Medical morning Branch and 1 tablet in the evening. amLODIPine 2023-0 Yes 5mg Take 1 Unive rs 5 mg tablet 1-26 tablet by ity of 00:00: mouth in [place] [address] the Medical morning Branch and 1 tablet in the evening. amLODIPine 2023-0 Yes 5mg Take 1 Unive rs 5 mg tablet 1-26 tablet by ity of 00:00: mouth in [place] [address] the Medical morning Branch and 1 tablet in the evening. amLODIPine 2023-0 Yes 5mg Take 1 Unive rs 5 mg tablet 1-26 tablet by ity of 00:00: mouth in [place] [address] the Medical morning Branch and 1 tablet in the evening. amLODIPine 2023-0 Yes 5mg Take 1 Unive rs 5 mg tablet 1-26 tablet by ity of 00:00: mouth in [place] [address] the Medical morning Branch and 1 tablet in the evening. amLODIPine 2023-0 Yes 5mg Take 1 Unive rs 5 mg tablet 1-26 tablet by ity of 00:00: mouth in [place] [address] the Medical morning Branch and 1 tablet in the evening. amLODIPine 2023-0 Yes 5mg Take 1 Unive rs 5 mg tablet 1-26 tablet by ity of 00:00: mouth in [place] [address] the Medical morning Branch and 1 tablet in the evening. amLODIPine 2023-0 Yes 5mg Take 1 Unive rs 5 mg tablet 1-26 tablet by ity of 00:00: mouth in [place] [address] the Medical morning Branch and 1 tablet in the evening. amLODIPine 2023-0 Yes 5mg Take 1 Unive rs 5 mg tablet 1-26 tablet by ity of 00:00: mouth in [place] [address] the Medical morning Branch and 1 tablet in the evening. amLODIPine 2023-0 Yes 5mg Take 1 Unive rs 5 mg tablet 1-26 tablet by ity of 00:00: mouth in [place] [address] the Medical morning Branch and 1 tablet in the evening. amLODIPine 2023-0 Yes 5mg Take 1 Unive rs 5 mg tablet 1-26 tablet by ity of 00:00: mouth in [place] [address] the Medical morning Branch and 1 tablet in the evening. amLODIPine 2023-0 Yes 5mg Take 1 Unive rs 5 mg tablet 1-26 tablet by ity of 00:00: mouth in [place] [address] the Medical morning Branch and 1 tablet in the evening. amLODIPine 2023-0 Yes 5mg Take 1 Unive rs 5 mg tablet 1-26 tablet by ity of 00:00: mouth in [place] [address] the Medical morning Branch and 1 tablet in the evening. amLODIPine 2023-0 Yes 5mg Take 1 Unive rs 5 mg tablet 1-26 tablet by ity of 00:00: mouth in [place] [address] the Medical morning Branch and 1 tablet in the evening. amLODIPine 2023-0 Yes 5mg Take 1 Unive rs 5 mg tablet 1-26 tablet by ity of 00:00: mouth in [place] [address] the Medical morning Branch and 1 tablet in the evening. amLODIPine 2023-0 Yes 5mg Take 1 Unive rs 5 mg tablet 1-26 tablet by ity of 00:00: mouth in [place] [address] the Medical morning Branch and 1 tablet in the evening. amLODIPine 2023-0 Yes 5mg Take 1 Unive rs 5 mg tablet 1-26 tablet by ity of 00:00: mouth in [place] [address] the Medical morning Branch and 1 tablet in the evening. amLODIPine 2023-0 Yes 5mg Take 1 Unive rs 5 mg tablet 1-26 tablet by ity of 00:00: mouth in [place] [address] the Medical morning Branch and 1 tablet in the evening. amLODIPine 2023-0 Yes 5mg Take 1 Unive rs 5 mg tablet 1-26 tablet by ity of 00:00: mouth in [place] [address] the Medical morning Branch and 1 tablet in the evening. amLODIPine 2023-0 Yes 5mg Take 1 Unive rs 5 mg tablet 1-26 tablet by ity of 00:00: mouth in [place] [address] the Medical morning Branch and 1 tablet in the evening. amLODIPine 2023-0 Yes 5mg Take 1 Unive rs 5 mg tablet 1-26 tablet by ity of 00:00: mouth in [place] [address] the Medical morning Branch and 1 tablet in the evening. amLODIPine 2023-0 Yes 5mg Take 1 Unive rs 5 mg tablet 1-26 tablet by ity of 00:00: mouth in [place] [address] the Medical morning Branch and 1 tablet in the evening. furosemide 2023-0 2023- No 40mg Take 1 Univ ers 40 mg -01 08-27 tablet by ity of tablet 00:00: 04:59 mouth in [place] 00 :00 the Medical morning Branch and 1 tablet in the evening. tamsulosin 2023-0 2023- No .4mg Take 1 Univ ers 0.4 mg 24 -01 08-27 capsule by ity of hr capsule 00:00: 04:59 mouth in [facility] 00 :00 the Medical morning Branch and [...] ity of tablet 00:00: 04:59 mouth in [place] 00 :00 the Medical morning Branch and [...] ity of tablet 00:00: 04:59 mouth in [place] 00 :00 the Medical morning Branch and [...] ity of tablet 00:00: 04:59 mouth in [place] 00 :00 the Medical morning Branch and [...] ity of tablet 00:00: 04:59 mouth in [place] 00 :00 the Medical morning Branch and 1 tablet in the evening. tamsulosin 2023-0 2023- No .4mg Take 1 Univ ers 0.4 mg 24 1-26 04-27 capsule by ity of hr capsule 00:00: 04:59 mouth in [facility] 00 :00 the Medical morning Branch and 1 capsule in the evening. furosemide 2023-0 2023- No 40mg Take 1 Univ ers 40 mg 1-26 04-27 tablet by ity of tablet 00:00: 04:59 mouth in [place] 00 :00 the Medical morning Branch and [...] ity of tablet 00:00: 04:59 mouth in [place] 00 :00 the Medical morning Branch and 1 tablet in the evening. tamsulosin 2023-0 2023- No .4mg Take 1 Univ ers 0.4 mg 24 1-26 04-27 capsule by ity of hr capsule 00:00: 04:59 mouth in [place] 00 :00 the Medical morning Branch and 1 capsule in the evening. furosemide 2023-0 2023- No 40mg Take 1 Univ ers 40 mg -26 -27 tablet by ity of tablet 00:00: 04:59 mouth in [place] 00 :00 the Medical morning Branch and [...] by ity of tablet 00:00: mouth in [place] 00 the Medical morning. Branch pantoprazol 2023-0 Yes 40mg Take 1 Univ ers e 40 mg EC 1-25 tablet by ity of tablet 00:00: mouth in [place] 00 the Medical morning. Branch pantoprazol 2023-0 Yes 40mg Take 1 Univ ers e 40 mg EC 1-25 tablet by ity of tablet 00:00: mouth in [place] 00 the Medical morning. Branch pantoprazol 2023-0 Yes 40mg Take 1 Univ ers e 40 mg EC 1-25 tablet by ity of tablet 00:00: mouth in [place] 00 the Medical morning. Branch pantoprazol 2023-0 Yes 40mg Take 1 Univ ers e 40 mg EC 1-25 tablet by ity of tablet 00:00: mouth in [place] 00 the Medical morning. Branch pantoprazol 2023-0 Yes 40mg Take 1 Univ ers e 40 mg EC 1-25 tablet by ity of tablet 00:00: mouth in [place] 00 the Medical morning. Branch pantoprazol 2023-0 Yes 40mg Take 1 Univ ers e 40 mg EC 1-25 tablet by ity of tablet 00:00: mouth in [place] 00 the Medical morning. Branch pantoprazol 2023-0 Yes 40mg Take 1 Univ ers e 40 mg EC 1-25 tablet by ity of tablet 00:00: mouth in [place] 00 the Medical morning. Branch pantoprazol 2023-0 Yes 40mg Take 1 Univ ers e 40 mg EC 1-25 tablet by ity of tablet 00:00: mouth in [place] 00 the Medical morning. Branch pantoprazol 2023-0 Yes 40mg Take 1 Univ ers e 40 mg EC 1-25 tablet by ity of tablet 00:00: mouth in [place] 00 the Medical morning. Branch pantoprazol 2023-0 Yes 40mg Take 1 Univ ers e 40 mg EC 1-25 tablet by ity of tablet 00:00: mouth in [place] 00 the Medical morning. Branch pantoprazol 2023-0 Yes 40mg Take 1 Univ ers e 40 mg EC 1-25 tablet by ity of tablet 00:00: mouth in [place] 00 the Medical morning. Branch pantoprazol 2023-0 Yes 40mg Take 1 Univ ers e 40 mg EC 1-25 tablet by ity of tablet 00:00: mouth in [place] 00 the Medical morning. Branch pantoprazol 2023-0 Yes 40mg Take 1 Univ ers e 40 mg EC 1-25 tablet by ity of tablet 00:00: mouth in [place] the Medical morning. Branch pantoprazol 2023-0 Yes 40mg Take 1 Univ ers e 40 mg EC 1-25 tablet by ity of tablet 00:00: mouth in [place] the Medical morning. Branch pantoprazol 2023-0 Yes 40mg Take 1 Univ ers e 40 mg EC 1-25 tablet by ity of tablet 00:00: mouth in [place] the Medical morning. Branch pantoprazol 2023-0 Yes 40mg Take 1 Univ ers e 40 mg EC 1-25 tablet by ity of tablet 00:00: mouth in [place] the Medical morning. Branch pantoprazol 2023-0 Yes 40mg Take 1 Univ ers e 40 mg EC 1-25 tablet by ity of tablet 00:00: mouth in [place] the Medical morning. Branch pantoprazol 2023-0 Yes 40mg Take 1 Univ ers e 40 mg EC 1-25 tablet by ity of tablet 00:00: mouth in [place] 00 the Medical morning. Branch pantoprazol 2023-0 Yes 40mg Take 1 Univ ers e 40 mg EC 1-25 tablet by ity of tablet 00:00: mouth in [place] 00 the Medical morning. Branch pantoprazol 2023-0 Yes 40mg Take 1 Univ ers e 40 mg EC 1-25 tablet by ity of tablet 00:00: mouth in [place] 00 the Medical morning. Branch pantoprazol 2023-0 Yes 40mg Take 1 Univ ers e 40 mg EC 1-25 tablet by ity of tablet 00:00: mouth in [place] [address] the [facility] morning. Branch pantoprazol 3-0 Yes 40mg Take 1 Univ ers e 40 mg EC 1-25 tablet by ity of tablet 00:00: mouth in [place] [address] the [facility] morning. Branch pregabalin 2-1 Yes 150mg Take 1 Univ ers 150 mg 0-28 capsule by ity of capsule 00:00: mouth in [address] morning [place] and 1 capsule in the evening. pregabalin 2022-1 Yes 150mg Take 1 Univ ers 150 mg 0-28 capsule by ity of capsule 00:00: mouth in [address] morning [place] and 1 capsule in the evening. pregabalin 2022-1 Yes 150mg Take 1 Univ ers 150 mg 0-28 capsule by ity of capsule 00:00: mouth in [address] morning [place] and 1 capsule in the evening. pregabalin 2022-1 Yes 150mg Take 1 Univ ers 150 mg 0-28 capsule by ity of capsule 00:00: mouth in [address] and 1 capsule in the evening. pregabalin 2022-1 Yes 150mg Take 1 Univ ers 150 mg 0-28 capsule by ity of capsule 00:00: mouth in [address] and 1 capsule in the evening. pregabalin 2022-1 Yes 150mg Take 1 Univ ers 150 mg 0-28 capsule by ity of capsule 00:00: mouth in [address] and 1 capsule in the evening. pregabalin 2022-1 Yes 150mg Take 1 Univ ers 150 mg 0-28 capsule by ity of capsule 00:00: mouth in [address] and 1 capsule in the evening. pregabalin 2022-1 Yes 150mg Take 1 Univ ers 150 mg 0-28 capsule by ity of capsule 00:00: mouth in [address] and 1 capsule in the evening. pregabalin 2022-1 Yes 150mg Take 1 Univ ers 150 mg 0-28 capsule by ity of capsule 00:00: mouth in [address] and 1 capsule in the evening. pregabalin 2022-1 Yes 150mg Take 1 Univ ers 150 mg 0-28 capsule by ity of capsule 00:00: mouth in [address] and 1 capsule in the evening. pregabalin 2022-1 Yes 150mg Take 1 Univ ers 150 mg 0-28 capsule by ity of capsule 00:00: mouth in [place] [address] the Medical morning Branch and 1 capsule in the evening. pregabalin 2022-1 Yes 150mg Take 1 Univ ers 150 mg 0-28 capsule by ity of capsule 00:00: mouth in [place] [address] the Medical morning Branch and 1 capsule in the evening. pregabalin 2022-1 Yes 150mg Take 1 Univ ers 150 mg 0-28 capsule by ity of capsule 00:00: mouth in [place] [address] the Medical morning Branch and 1 capsule in the evening. pregabalin 2022-1 Yes 150mg Take 1 Univ ers 150 mg 0-28 capsule by ity of capsule 00:00: mouth in [place] [address] the Medical morning Branch and 1 capsule in the evening. pregabalin 2022-1 Yes 150mg Take 1 Univ ers 150 mg 0-28 capsule by ity of capsule 00:00: mouth in [place] [address] the Medical morning Branch and 1 capsule in the evening. pregabalin 2022-1 Yes 150mg Take 1 Univ ers 150 mg 0-28 capsule by ity of capsule 00:00: mouth in [place] [address] the Medical morning Branch and 1 capsule in the evening. pregabalin 2022-1 Yes 150mg Take 1 Univ ers 150 mg 0-28 capsule by ity of capsule 00:00: mouth in [place] [address] the Medical morning Branch and 1 capsule in the evening. pregabalin 2022-1 Yes 150mg Take 1 Univ ers 150 mg 0-28 capsule by ity of capsule 00:00: mouth in [place] [address] the Medical morning Branch and 1 capsule in the evening. pregabalin 2022-1 Yes 150mg Take 1 Univ ers 150 mg 0-28 capsule by ity of capsule 00:00: mouth in [place] [address] the Medical morning Branch and 1 capsule in the evening. pregabalin 2022-1 Yes 150mg Take 1 Univ ers 150 mg 0-28 capsule by ity of capsule 00:00: mouth in [place] [address] the Medical morning Branch and 1 capsule in the evening. pregabalin 2022-1 Yes 150mg Take 1 Univ ers 150 mg 0-28 capsule by ity of capsule 00:00: mouth in [address] Medical morning Branch and 1 capsule in the evening. pregabalin 2022-1 Yes 150mg Take 1 Univ ers 150 mg 0-28 capsule by ity of capsule 00:00: mouth in [place] 00 the Medical morning Branch and 1 capsule in the evening. pregabalin 2021-04 Yes 150mg Take 1 Univ ers 150 mg 0-28 capsule by ity of capsule 00:00: mouth in [place] 00 the Medical morning Branch and 1 capsule in the evening. NaCl 0.9% 2020-04- No PRN, Univers (NS) 05-17 Starting ity of injection 18:54: 19:46 on Elisa [place] 00 :23 03/16/21 at Medical 1254, Branch [...] No 4mg 4 mg, Slow Univers (ZOFRAN 05-17- IV Push, ity of (PF)) 17:21: 19:46 PRN, 1 [place] injection 4 41 :23 dose, Medical mg Starting Branch on [place] 03/16/21 at 1121, Until [place] 03/16/21 at 1346, Routine, Nausea and Vomiting (N/V), PACU neomycin-po 2020-04- No PRN, Unive rs lymyxin-dex 05-17 Starting ity of amethasone 17:07: 19:46 [place] (MAXITROL) 00 :23 03/16/21 at [facility] [address] [place] [address] mg/g-10,000 Until [place] unit/g-0.1 03/16/21 at % 1346, ophthalmic Routine, ointment Intra-op gentamicin 2020-04 Yes PRN, Univers injection 05-17 Starting ity of 17:06: on Elisa [place] 00 03/16/21 at [place] [address], [place] Until Discontinu ed, GRANT, Intra-op dexamethaso 2020-04 Yes PRN, Univer s ne 05-17 Starting ity of (DECADRON 17:06: on Elisa [place] PHOSPHATE) 00 03/16/21 at [facility] ical injection 110, [place] Until Discontinu ed, Routine, Intra-op ceFAZolin 2020-04 Yes PRN, Univers (ANCEF) 05-17 Starting ity of injection 17:06: on Elisa [place] 00 03/16/21 at [place] [address], [place] Until Discontinu ed, GRANT, Intra-op gentamicin 2020-04- No PRN, Univer s injection 05-17 Starting ity o f 17:06: 19:46 on Elisa [place] 00 :23 03/16/21 at [place] [address], Branch Until [place] 03/16/21 at 1346, GRANT, Intra-op dexamethaso 2020-04- No PRN, Unive rs ne 05-17 Starting ity of (DECADRON 17:06: 19:46 on Elisa [place] PHOSPHATE) 00 :23 03/16/21 at Med ical injection 1106, Branch Until [place] 03/16/21 at 1346, Routine, Intra-op ceFAZolin 2020-04- No PRN, Univers (ANCEF) 05-17 Starting ity of injection 17:06: 19:46 on Elisa [place] 00 :23 03/16/21 at [place] [address], Branch Until [place] 03/16/21 at 1346, GRANT, [...] [place] (BSS) 00 03/16/21 at [facility] ophthalmic 1040, Branch solution Until [...] Jeremi as (BSS) 00 :23 03/16/21 at [facility] ophthalmic 1040, Branch solution Until [place] 03/16/21 at 1346, Routine, Intra-op tetracaine 2020-04 Yes PRN, Univers (PONTOCAINE 05-17 Starting ity of ) 0.5 % 16:35: on Elisa [place] ophthalmic 00 03/16/21 at [facility] ical drops 1035, Branch Until Discontinu ed, Routine, Intra-op tetracaine 2020-04- No PRN, Univer s (PONTOCAINE 05-17 Starting ity of ) 0.5 % 16:35: 19:46 on Elisa [place] ophthalmic 00 :23 03/16/21 at [facility] ical drops 1035, Branch Until [place] 03/16/21 at 1346, Routine, Intra-op eye block 2020-04 Yes PRN, Univers syringe 11 05-17 Starting ity o f mL 16:31: on Elisa [place] 00 03/16/21 at [facility] 1031, Branch Until Discontinu ed, Intra-op eye block 2020-04- No PRN, Univers syringe 11 05-17 Starting ity of mL 16:31: 19:46 on Elsia [place] 00 :23 03/16/21 at [facility] 103, Branch Until [place]isa 03/16/21 at 1346, Intra-op EPINEPHrine 2020-04 Yes PRN, Univer s (PF) 05-17 Starting ity of 1:1,000 (1 16:23: on Elisa [place] mg/mL) 00 03/16/21 at [facility] (ADRENALIN 1023, Branch (PF)) Until injection Discontinu ed, Routine, Intra-op EPINEPHrine 2020-04- No PRN, Unive rs (PF) 05-17 Starting ity of 1:1,000 (1 16:23: 19:46 on [place] mg/mL) 00 :23 03/16/21 at [facility] (ADRENALIN 1023, Branch (PF)) Until [...] at 1346, Routine, Surgery/Pr ocedure, DSU Pre-op rosuvastati 2020-04 Yes 20mg Take 20 mg Univers n (CRESTOR) 2-09 by mouth ity of 20 mg 11:46: at [place] tablet 22 bedtime. Medical Branch DULoxetine 2020-04 Yes 30mg Take 30 mg U nivers (CYMBALTA) 2-09 by mouth ity o f 30 mg 11:46: daily. [place] capsule Medical Branch tamsulosin 2020-04 Yes Take by [facility] ers 0.4 mg 24 2-09 mouth ity of hr capsule 11:46: daily. [address] Branch pregabalin 2020-04 Yes 150mg Take 150 Un elizabeth (LYRICA) 2-09 mg by ity of 150 mg 11:46: mouth 2 [place] capsule 22 (two) Medical times Branch daily. metoprolol 2020-04 Yes Take by [facility] ers succinate 2-09 mouth. ity of 100 mg CSpX 11:46: [address] Branch clopidogreL 2020-04 Yes 75mg Take 75 mg Univers (PLAVIX) 75 2-09 by mouth ity of mg tablet 11:46: daily. [address] Branch Pantoprazol 2020-04 Yes 40mg Take 40 mg Univers e 2-09 by mouth ity of (PROTONIX) 11:46: daily. [place] [address] delayed-rel Branch ease suspension fluticasone 2020-[address] [facility] vers -umeclidin- 209 ity of vilanter 11:46: [place] (TRELEGY 22 Medical ELLIPTA) Branch 100-62.5-25 mcg DsDv Vitamin E 2020-04 Yes Take by [facility] [place] [facility] rs 100 2-09 mouth. ity of unit/0.25 11:46: [place] mL Drop Medical Branch albuterol 2020-04 Yes 1{ampul Use 1 Univ ers 1.25 mg/3 2-09 e} Ampule as ity o f mL 11:46: directed [place] nebulizer 22 every 6 Medical solution (six) Branch hours as needed for Wheezing. arformotero 2020-04 Yes 15ug Use 15 mcg Univers L (BROVANA) 2-09 as ity of 15 mcg/2 mL 11:46: directed 2 [place] nebulizer 22 (two) Medical solution times Branch [...] 2-09 by mouth ity of 11:46: daily. [place] [address] Medical Branch rosuvastati 2020-04 Yes 20mg Take 20 mg Univers n (CRESTOR) 2-09 by mouth ity of 20 mg 11:46: at [place] tablet 22 bedtime. Medical Branch DULoxetine 2020-04 Yes 30mg Take 30 mg U nivers (CYMBALTA) 2-09 by mouth ity o f 30 mg 11:46: daily. [place] capsule Medical Branch tamsulosin 2020-04 Yes Take by [facility] ers 0.4 mg 24 2-09 mouth ity of hr capsule 11:46: daily. [place] [address] Medical Branch pregabalin 2020-04 Yes 150mg Take 150 Un elizabeth (LYRICA) 2-09 mg by ity of 150 mg 11:46: mouth 2 [place] capsule 22 (two) Medical times Branch daily. metoprolol 2020-04 Yes Take by [facility] ers succinate 2-09 mouth. ity of 100 mg CSpX 11:46: [place] [address] Medical Branch clopidogreL 2020-04 Yes 75mg Take 75 mg Univers (PLAVIX) 75 2-09 by mouth ity of mg tablet 11:46: daily. [place] [address] Medical Branch Pantoprazol 2020-04 Yes 40mg Take 40 mg Univers e 2-09 by mouth ity of (PROTONIX) 11:46: daily. [place] 40 mg Medical delayed-rel Branch ease suspension fluticasone 2020-[address] [facility] vers -umeclidin- 2-09 ity of vilanter 11:46: [place] (TRELEGY 22 Medical ELLIPTA) Branch 100-62.5-25 mcg DsDv Vitamin E 2020-04 Yes Take by [facility] rs 100 2-09 mouth. ity of unit/0.25 11:46: [place] mL Drop Medical Branch albuterol 2020-04 Yes 1{ampul Use 1 Univ ers 1.25 mg/3 2-09 e} Ampule as ity o f mL 11:46: directed [place] nebulizer 22 every 6 Medical solution (six) Branch hours as needed for Wheezing. arformotero 2020-04 Yes 15ug Use 15 mcg Univers L (BROVANA) 2-09 as ity of 15 mcg/2 mL 11:46: directed 2 [place] nebulizer 22 (two) Medical solution times Branch daily. aspirin 81 2020-04 Yes 81mg Take 81 mg U nivers mg Cap 2-09 by mouth ity of 11:46: daily. [address] metoprolol 2020-04 Yes Take by Univ ers succinate 2-09 mouth. ity of 100 mg CSpX 11:46: [address] Vitamin E 2020-04 Yes Take by Unive [...] 2-09 by mouth ity of 11:46: daily. [address] metoprolol 2020-04 Yes Take by Univ ers succinate 2-09 mouth. ity of 100 mg CSpX 11:46: [address] Vitamin E 2020-04 Yes Take by Unive rs 100 2-09 mouth. ity of unit/0.25 11:46: [place] mL Drop [address] [place] [address] Branch albuterol 2020-04 Yes 1{ampul Use 1 [...] 2-09 by mouth ity of 11:46: daily. [address] Branch metoprolol 2020-04 Yes Take by [facility] ers succinate 2-09 mouth. ity of 100 mg CSpX 11:46: [address] Branch Vitamin E 2020-04 Yes Take by [facility] [place] [facility] rs 100 2-09 mouth. ity of unit/0.25 11:46: [place] mL Drop [address] [place] [address] Branch albuterol 2020-04 Yes 1{ampul Use 1 Univ ers 1.25 mg/3 2-09 e} Ampule as ity o f mL 11:46: directed [place] nebulizer 22 every 6 Medical solution (six) Branch hours as needed for Wheezing. arformotero 2020-04 Yes 15ug Use 15 mcg Univers L (BROVANA) 2-09 as ity of 15 mcg/2 mL 11:46: directed 2 [place] nebulizer 22 (two) Medical solution times Branch [...] 2-09 by mouth ity of 11:46: daily. [address] Branch rosuvastati 2020-04 Yes 20mg Take 20 mg Univers n (CRESTOR) 2-09 by mouth ity of 20 mg 11:46: at [place] tablet 22 bedtime. Medical Branch DULoxetine 2020-04 Yes 30mg Take 30 mg U nivers (CYMBALTA) 2-09 by mouth ity o f 30 mg 11:46: daily. [place] capsule [address] [place] [address] Branch tamsulosin 2020-04 Yes Take by [facility] ers 0.4 mg 24 2-09 mouth ity of hr capsule 11:46: daily. [address] Branch pregabalin 2020-04 Yes 150mg Take 150 Un elizabeth (LYRICA) 2-09 mg by ity of 150 mg 11:46: mouth 2 [place] capsule 22 (two) Medical times Branch daily. metoprolol 2020-04 Yes Take by [facility] ers succinate 2-09 mouth. ity of 100 mg CSpX 11:46: [place] [address] Medical Branch clopidogreL 2020-04 Yes 75mg Take 75 mg Univers (PLAVIX) 75 2-09 by mouth ity of mg tablet 11:46: daily. [address] Branch Pantoprazol 2020-04 Yes 40mg Take 40 mg Univers e 2-09 by mouth ity of (PROTONIX) 11:46: daily. [place] 40 mg Medical delayed-rel Branch ease suspension fluticasone 2020-[address] [facility] vers -umeclidin- 2-09 ity of vilanter 11:46: [place] (TRELEGY 22 Medical ELLIPTA) Branch 100-62.5-25 mcg DsDv Vitamin E 2020-04 Yes Take by [facility] [place] [facility] rs 100 2-09 mouth. ity of unit/0.25 11:46: [place] mL Drop Medical Branch albuterol 2020-04 Yes 1{ampul Use 1 [facility] ers 1.25 mg/3 2-09 e} Ampule as ity o f mL 11:46: directed [place] nebulizer 22 every 6 Medical solution (six) Branch hours as needed for Wheezing. arformotero 2020-04 Yes 15ug Use 15 mcg Univers L (BROVANA) 2-09 as ity of 15 mcg/2 mL 11:46: directed 2 [place] nebulizer 22 (two) Medical solution times Branch [...] 2-09 by mouth ity of 11:46: daily. [address] Branch rosuvastati 2020-04 Yes 20mg Take 20 mg Univers n (CRESTOR) 2-09 by mouth ity of 20 mg 11:46: at [place] tablet 22 bedtime. Medical Branch DULoxetine 2020-04 Yes 30mg Take 30 mg U nivers (CYMBALTA) 2-09 by mouth ity o f 30 mg 11:46: daily. [place] capsule [address] [place] [address] Branch tamsulosin 2020-04 Yes Take by [facility] ers 0.4 mg 24 2-09 mouth ity of hr capsule 11:46: daily. [address] Branch pregabalin 2020-04 Yes 150mg Take 150 Un elizabeth (LYRICA) 2-09 mg by ity of 150 mg 11:46: mouth 2 [place] capsule 22 (two) Medical times Branch daily. metoprolol 2020-04 Yes Take by [facility] ers succinate 2-09 mouth. ity of 100 mg CSpX 11:46: [address] Branch clopidogreL 2020-04 Yes 75mg Take 75 mg Univers (PLAVIX) 75 2-09 by mouth ity of mg tablet 11:46: daily. [address] Branch Pantoprazol 2020-04 Yes 40mg Take 40 mg Univers e 2-09 by mouth ity of (PROTONIX) 11:46: daily. [place] [address] delayed-rel Branch ease suspension fluticasone 2020-[address] [facility] vers -umeclidin- 2-09 ity of vilanter 11:46: [place] (TRELEGY 22 Medical ELLIPTA) Branch 100-62.5-25 mcg DsDv Vitamin E 2020-04 Yes Take by [facility] [place] [facility] rs 100 2-09 mouth. ity of unit/0.25 11:46: [place] mL Drop [address] [place] [address] Branch albuterol 2020-04 Yes 1{ampul Use 1 [facility] ers 1.25 mg/3 2-09 e} Ampule as ity o f mL 11:46: directed [place] nebulizer 22 every 6 Medical solution (six) Branch hours as needed for Wheezing. arformotero 2020-04 Yes 15ug Use 15 mcg Univers L (BROVANA) 2-09 as ity of 15 mcg/2 mL 11:46: directed 2 [place] nebulizer 22 (two) Medical solution times Branch [...] 2-09 by mouth ity of 11:46: daily. [address] NaCl 0.9% 2020-04 Yes PRN, Univers (NS) 04-25 Starting ity of injection 14:52: on [facility] 00 02/23/21 Medical at 0852, Branch Until Discontinu ed, Routine, Intra-op NaCl 0.9% 2020-04- No PRN, Univers (NS) 04-25 Starting ity of injection 14:52: 17:45 on [facility] 00 :34 02/23/21 Medical at 0852, Branch Until [place] 02/23/21 at 1145, Routine, Intra-op water for 2020-04 Yes PRN, Univers irrigation 04-25 Starting ity o f irrigation 14:44: on [facility] solution 00 02/23/21 Medical at 0844, Branch Until Discontinu ed, Routine, Intra-op water for 2020-04- No PRN, Univers irrigation 04-25 Starting ity of irrigation 14:44: [facility] 02/23/21 Medical at 0844, Branch Until [place] 02/23/21 at 1145, Routine, Intra-op tetracaine 2020-04 Yes PRN, Univers (PONTOCAINE 04-25 Starting ity of ) 0.5 % 14:42: on [facility] ophthalmic 00 02/23/21 Medic al drops at 0842, Branch Until Discontinu ed, Routine, Intra-op tetracaine 2020-04- No PRN, Univer s (PONTOCAINE 04-25 Starting ity of ) 0.5 % 14:42: 17:45 on [facility] ophthalmic 00 :34 02/23/21 Medic al drops at 0842, Branch Until [place] 02/23/21 at 1145, Routine, Intra-op neomycin-po 2020-04 Yes PRN, Univer s lymyxin-dex 04-25 Starting ity of amethasone 14:26: on [facility] (MAXITROL) 00 02/23/21 Medic al 3.5 at [...] ity of amethasone 14:26: 17:45 [facility]34 02/23/21 [...] ity of injection 14:24: on [place] 02/23/21 Medical at 0824, Branch Until Discontinu [...] as ity o f mL 09:45: directed [place] nebulizer 32 every 6 Medical solution (six) [...] by mouth ity of 09:45: daily. [address] Branch rosuvastati 2020-04 Yes 20mg Take 20 mg Univers n (CRESTOR) 18 by mouth ity of 20 mg 09:45: at [place] tablet bedtime. Medical Branch DULoxetine 2020-04 Yes 30mg Take 30 mg U nivers (CYMBALTA) 1-18 by mouth ity o f 30 mg 09:45: daily. [address] Branch tamsulosin 2020-04 Yes Take by [facility] ers 0.4 mg 24 -18 mouth ity of hr capsule 09:45: daily. [address] Branch pregabalin 2020-04 Yes 150mg Take 150 Un elizabeth (LYRICA) 1-18 mg by ity of 150 mg 09:45: mouth 2 [place] capsule 32 (two) Medical times Branch daily. metoprolol 2020-04 Yes Take by [facility] ers succinate 1-18 mouth. ity of 100 mg CSpX 09:45: [address] Branch clopidogreL 2020-04 Yes 75mg Take 75 mg Univers (PLAVIX) 75 -18 by mouth ity of mg tablet 09:45: daily. [address] Branch Pantoprazol 2020-04 Yes 40mg Take 40 mg Univers e -18 by mouth ity of (PROTONIX) 09:45: daily. [place] [address] delayed-rel Branch ease suspension fluticasone 2020-[address] [facility] vers -umeclidin- 1-18 ity of vilanter 09:45: [place] (TRELEGY Medical ELLIPTA) Branch 100-62.5-25 mcg DsDv Vitamin E 2020-04 Yes Take by [facility] [place] [facility] rs 100 1-18 mouth. ity of unit/0.25 09:45: [place] mL Drop [address] [place] [address] Branch albuterol 2020-04 Yes 1{ampul Use 1 Univ ers 1.25 mg/3 1-18 e} Ampule as ity o f mL 09:45: directed [place] nebulizer every 6 Medical solution (six) Branch hours as needed for Wheezing. arformotero 2020-04 Yes 15ug Use 15 mcg Univers L (BROVANA) 1-18 as ity of 15 mcg/2 mL 09:45: directed 2 [place] nebulizer (two) Medical solution times Branch daily. allopurinoL 2020-04 Yes 300mg Take 300 U nivers 300 mg 1-18 mg by ity of tablet 09:45: mouth [place] [address] daily. Medical Branch dutasteride 2020-04 Yes .5mg Take 0.5 Un elizabeth (AVODART) 1-18 mg by ity of 0.5 mg 09:45: mouth [place] [address] daily. Medical Branch aspirin 81 2020-04 Yes 81mg Take 81 mg U nivers mg Cap -18 by mouth ity of 09:45: daily. [address] Branch rosuvastati 2020-04 Yes 20mg Take 20 mg Univers n (CRESTOR) 1-18 by mouth ity of 20 mg 09:45: at [place] tablet bedtime. Medical Branch DULoxetine 2020-04 Yes 30mg Take 30 mg U nivers (CYMBALTA) 1-18 by mouth ity o f 30 mg 09:45: daily. [place] capsule [address] [place] [address] Branch tamsulosin 2020-04 Yes Take by [facility] ers 0.4 mg 24 1-18 mouth ity of hr capsule 09:45: daily. [address] Branch pregabalin 2020-04 Yes 150mg Take 150 Un elizabeth (LYRICA) 1-18 mg by ity of 150 mg 09:45: mouth 2 [place] capsule 32 (two) Medical times Branch daily. metoprolol 2020-04 Yes Take by [facility] ers succinate 1-18 mouth. ity of 100 mg CSpX 09:45: [address] Branch clopidogreL 2020-04 Yes 75mg Take 75 mg Univers (PLAVIX) 75 1-18 by mouth ity of mg tablet 09:45: daily. [address] Branch Pantoprazol 2020-04 Yes 40mg Take 40 mg Univers e 1-18 by mouth ity of (PROTONIX) 09:45: daily. [place] [address] delayed-rel Branch ease suspension fluticasone 2020-04 Yes Inhale. Uni vers -umeclidin- 1-18 ity of vilanter 09:45: [place] (TRELEGY Medical ELLIPTA) Branch 100-62.5-25 mcg DsDv Vitamin E 2020-04 Yes Take by Unive rs 100 1-18 mouth. ity of unit/0.25 09:45: [place] mL Drop [address] [place] [address] Branch albuterol 2020-04 Yes 1{ampul Use 1 Univ ers 1.25 mg/3 1-18 e} Ampule as ity o f mL 09:45: directed [place] nebulizer every 6 Medical solution (six) Branch hours as needed for Wheezing. arformotero 2020-04 Yes 15ug Use 15 mcg Univers L (BROVANA) 1-18 as ity of 15 mcg/2 mL 09:45: directed 2 [place] nebulizer 32 (two) Medical solution times Branch daily. allopurinoL 2020-04 Yes 300mg Take 300 U nivers 300 mg 1-18 mg by ity of tablet 09:45: mouth [place] [address] daily. Medical Branch dutasteride 2020-04 Yes .5mg Take 0.5 Un elizabeth (AVODART) 1-18 mg by ity of 0.5 mg 09:45: mouth [place] capsule 32 daily. Medical Branch aspirin 81 2020-04 Yes 81mg Take 81 mg U nivers mg Cap 1-18 by mouth ity of 09:45: daily. [address] Branch rosuvastati 2020-04 Yes 20mg Take 20 mg Univers n (CRESTOR) 1-18 by mouth ity of 20 mg 09:45: at [place] tablet 32 bedtime. Medical Branch DULoxetine 2020-04 Yes 30mg Take 30 mg U nivers (CYMBALTA) 1-18 by mouth ity o f 30 mg 09:45: daily. [place] capsule 32 Medical Branch tamsulosin 2020-04 Yes Take by [facility] ers 0.4 mg 24 1-18 mouth ity of hr capsule 09:45: daily. [address] Branch pregabalin 2020-04 Yes 150mg Take 150 Un elizabeth (LYRICA) 1-18 mg by ity of 150 mg 09:45: mouth 2 [place] capsule (two) Medical times Branch daily. metoprolol 2020-04 Yes Take by [facility] ers succinate -18 mouth. ity of 100 mg CSpX 09:45: [address] Branch clopidogreL 2020-04 Yes 75mg Take 75 mg Univers (PLAVIX) 75 18 by mouth ity of mg tablet 09:45: daily. [address] Branch Pantoprazol 2020-04 Yes 40mg Take 40 mg Univers e 18 by mouth ity of (PROTONIX) 09:45: daily. [place] [address] delayed-rel Branch ease suspension fluticasone 2020-[address] [facility] vers -umeclidin- 18 ity of vilanter 09:45: [place] (TRELEGY Medical ELLIPTA) Branch 100-62.5-25 mcg DsDv Vitamin E 2020-04 Yes Take by [facility] [place] [facility] rs 100 1-18 mouth. ity of unit/0.25 09:45: [place] mL Drop [address] [place] [address] Branch aspirin 325 Yes 325mg QD Take [address] MG tablet 6-08 mg by [facility]: mouth Medical 05 daily. [place] pantoprazol Yes 40mg QD Take [address] [facility] e 6-08 by mouth [facility] (PROTONIX) 10:57: daily. Medic al 40 MG 05 [place] tablet pitavastati Yes 4mg QD Take [address] n (LIVALO) 6-08 by mouth [facility] 4 mg Tab 10:57: daily. Medical 05 Center tamsulosin 0 Yes .4mg QD Take 0.[address] [facility] (FLOMAX) 6-08 mg by [facility] 0.4 mg Cp24 10:57: mouth Medic al 24 hr 05 daily. [place] capsule fenofibric 0 Yes 135mg QD Take [address] acid, 6-08 mg by [facility] choline, 10:57: mouth Medical 135 mg 05 daily. [place] capsule dutasteride Yes .5mg QD Take 0.[address] (AVODART) 6-08 mg by [facility] 0.5 mg 10:57: mouth Medical capsule 05 daily. [place] allopurinol 0 Yes 300mg QD Take [address] (ZYLOPRIM) 6-08 mg by [facility] 300 MG 10:57: mouth Medical tablet 05 daily. [place] gabapentin 0 Yes 300mg Q.5D Take 300 [...] MG 10:57: daily . Medical tablet 05 [place] fentaNYL 0 Yes 2{patch Place [address] [facility] (DURAGESIC) 6-08 } patches [facility] 12 mcg/hr 10:57: onto the Medi ricki patch 05 skin every Center third day. clopidogrel 0 Yes 75mg QD Take [address] (PLAVIX) 75 6-08 by mouth Luke s mg tablet 10:57: daily. Medica l 05 [place] aspirin 325 0 Yes 325mg QD Take [address] MG tablet 6-08 mg by [facility] 10:57: mouth Medical 05 daily. [place] pantoprazol 0 Yes 40mg QD Take [address] e 6-08 by mouth [facility] (PROTONIX) 10:57: daily. Medic al 40 MG 05 [place] tablet pitavastati 2015-0 Yes 4mg QD Take [address] n (LIVALO) 6-08 by mouth [facility] 4 mg Tab 10:57: daily. Medical 05 [place] tamsulosin 2015-0 Yes .4mg QD Take 0.[address] (FLOMAX) 6-08 mg by [facility] 0.4 mg Cp24 10:57: mouth Medic al 24 hr 05 daily. [place] capsule fenofibric 0 Yes 135mg QD Take [address] acid, 6-08 mg by [facility] choline, 10:57: mouth Medical 135 mg 05 daily. [place] capsule dutasteride 20160 Yes .5mg QD Take 0.[address] (AVODART) 6-08 mg by [facility] 0.5 mg 10:57: mouth Medical capsule 05 daily. [place] allopurinol 20160 Yes 300mg QD Take [address] (ZYLOPRIM) 6-08 mg by [facility] 300 MG 10:57: mouth Medical tablet 05 daily. [place] gabapentin 2016-0 Yes 300mg Q.5D Take 300 [...] MG 10:57: daily . Medical tablet 05 [place] fentaNYL 0 Yes 2{patch Place [address] [facility] (DURAGESIC) 6-08 } patches [facility] 12 mcg/hr 10:57: onto the Medi ricki patch 05 skin every Center third day. clopidogrel 0 Yes 75mg QD Take [address] [facility] (PLAVIX) 75 6-08 by mouth Luke s mg tablet 10:57: daily. Medica l 05 [place] aspirin 325 20160 Yes 325mg QD Take [address] MG tablet 6-08 mg by [facility] 10:57: mouth Medical 05 daily. [place] pantoprazol 0 Yes 40mg QD Take [address] [facility] e 6-08 by mouth [facility] (PROTONIX) 10:57: daily. Medic al 40 MG 05 Center tablet pitavastati 2015-0 Yes 4mg QD Take [address] n (LIVALO) 6-08 by mouth [facility] 4 mg Tab 10:57: daily. Medical 05 [place] tamsulosin 0 Yes .4mg QD Take 0.[address] (FLOMAX) 6-08 mg by [facility] 0.4 mg Cp24 10:57: mouth Medic al 24 hr 05 daily. [place] capsule fenofibric 2016-0 Yes 135mg QD Take [address] acid, 6-08 mg by Lukes choline, 10:57: mouth Medical 135 mg 05 daily. [place] capsule dutasteride 2016-0 Yes .5mg QD Take 0.[address] (AVODART) 6-08 mg by [facility] 0.5 mg 10:57: mouth Medical capsule 05 daily. [place] allopurinol 2016-0 Yes 300mg QD Take [address] (ZYLOPRIM) 6-08 mg by [facility] 300 MG 10:57: mouth Medical tablet 05 daily. [place] clopidogrel 2016-0 Yes 75mg QD Take [address] (PLAVIX) 75 6-08 by mouth Luke s mg tablet 10:57: daily. Medica l 05 [place] aspirin 325 2016-0 Yes 325mg QD Take [address] MG tablet 6-08 mg by [facility] 10:57: mouth Medical 05 daily. [place] pantoprazol 0 Yes 40mg QD Take [address] e 6-08 by mouth [facility] (PROTONIX) 10:57: daily. Medic al 40 MG 05 [place] tablet gabapentin 0 Yes 300mg Q.5D Take [address] (NEURONTIN) 6-08 mg by [facility] 300 MG 10:57: mouth 2 Medical capsule 05 (two) Center times daily. pitavastati 2016-0 Yes 4mg QD Take [address] n (LIVALO) 6-08 by mouth [facility] 4 mg Tab 10:57: daily. Medical 05 [place] tamsulosin 2015-0 Yes .4mg QD Take 0.[address] (FLOMAX) 6-08 mg by [facility] 0.4 mg Cp24 10:57: mouth Medic al 24 hr 05 daily. [place] capsule fenofibric 2016-0 Yes 135mg QD Take [address] acid, 6-08 mg by Lukes choline, 10:57: mouth Medical 135 mg 05 daily. [place] capsule dutasteride 2016-0 Yes .5mg QD Take 0.[address] (AVODART) 6-08 mg by [facility] 0.5 mg 10:57: mouth Medical capsule 05 daily. [place] allopurinol 2015-0 Yes 300mg QD Take [address] (ZYLOPRIM) 6-08 mg by [facility] 300 MG 10:57: mouth Medical tablet 05 daily. [place] gabapentin 2016-0 Yes 300mg Q.5D Take [address] (NEURONTIN) 6-08 mg by [facility] 300 MG 10:57: mouth 2 Medical capsule 05 (two) Center times daily. albuterol-i 2015-0 Yes 2{puff} Inhale [address] pratropium 6-08 puffs by [facility] (COMBIVENT) 10:57: mouth via M edical 18-103 05 inhaler Center mcg/actuati every 6 on inhaler (six) hours as needed for Wheezing. metoprolol 2016-0 Yes 25mg QD Take [address] (LOPRESSOR) 6-08 by mouth Luke s 25 MG 10:57: daily . Medical tablet 05 [place] fentaNYL 0 Yes 2{patch Place [address] [facility] [address] (DURAGESIC) 6-08 } patches [facility] 12 mcg/hr 10:57: onto the Medi ricki patch 05 skin every Center third day. albuterol-i 0 Yes 2{puff} Inhale [address] pratropium 6-08 puffs by [facility] (COMBIVENT) 10:57: mouth via M edical 18-103 05 inhaler Center mcg/actuati every 6 on inhaler (six) hours as needed for Wheezing. metoprolol Yes 25mg QD Take [address] (LOPRESSOR) 6-08 by mouth Luke s 25 MG 10:57: daily . Medical tablet 05 [place] fentaNYL 0 Yes 2{patch Place [address] [facility] [address] (DURAGESIC) 6-08 } patches [facility] 12 mcg/hr 10:57: onto the Medi ricki patch 05 skin every Center third day. clopidogrel 0 Yes 75mg QD Take [address] (PLAVIX) 75 6-08 by mouth Luke s mg tablet 10:57: daily. Medica l [address] [place] [address] aspirin 325 2016-0 Yes 325mg QD Take [address] MG tablet 6-08 mg by [facility] 10:57: mouth Medical 05 daily. [place] pantoprazol 2015-0 Yes 40mg QD Take [address] [facility] e 6-08 by mouth [facility] (PROTONIX) 10:57: daily. Medic al [address] [place] [address] tablet pitavastati 2016-0 Yes 4mg QD Take [address] n (LIVALO) 6-08 by mouth [facility] 4 mg Tab 10:57: daily. Medical [address] [place] [address] tamsulosin 2015-0 Yes .4mg QD Take 0.[address] (FLOMAX) 6-08 mg by [facility]ukes 0.4 mg Cp24 10:57: mouth Medic al 24 hr 05 daily. [place] capsule fenofibric Yes 135mg QD Take [address] acid, 6-08 mg by Lukes choline, 10:57: mouth Medical 135 mg 05 daily. [place] capsule dutasteride 2016 Yes .5mg QD Take 0.[address] (AVODART) 6-08 mg by [facility] 0.5 mg 10:57: mouth Medical capsule 05 daily. [place] allopurinol Yes 300mg QD Take [address] (ZYLOPRIM) 6-08 mg by [facility] 300 MG 10:57: mouth Medical tablet 05 daily. [place] gabapentin Yes 300mg Q.5D Take 300 [facility] [...] MG 10:57: daily . Medical tablet 05 [place] fentaNYL Yes 2{patch Place [address] [facility] (DURAGESIC) 6-08 } patches [facility] 12 mcg/hr 10:57: onto the [facility] patch 05 skin every [place] third day. clopidogrel Yes 75mg QD Take [address] (PLAVIX) 75 6-08 by mouth Luke s mg tablet 10:57: daily. Medica l 05 [place] Immunizations Ordered Filled Date Status Comments Source Immunization Name Immunization Name SARS-COV-2 COVID-19 2020-12-13 Completed Unive rsity of PFIZER VACCINE 00:00:00 [facility] SARS-COV-2 COVID-19 2020-12-13 Completed Unive rsity of PFIZER VACCINE 00:00:00 [facility] SARS-COV-2 COVID-19 2020-12-13 Completed Unive rsity of PFIZER VACCINE 00:00:00 [facility] SARS-COV-2 COVID-19 2020-12-13 Completed Unive rsity of PFIZER VACCINE 00:00:00 [facility] SARS-COV-2 COVID-19 2020-12-13 Completed Unive rsity of PFIZER VACCINE 00:00:00 [facility] SARS-COV-2 COVID-19 2020-12-13 Completed Unive rsity of PFIZER VACCINE 00:00:00 [facility] [place] [facility] SARS-COV-2 COVID-19 2020-12-13 Completed Unive rsity of PFIZER VACCINE 00:00:00 [facility] SARS-COV-2 COVID-19 2020-12-13 Completed Unive rsity of PFIZER VACCINE 00:00:00 [facility] [place] [facility] SARS-COV-2 COVID-19 2020-12-13 Completed Unive rsity of PFIZER VACCINE 00:00:00 [facility] SARS-COV-2 COVID-19 2020-12-13 Completed Unive rsity of PFIZER VACCINE 00:00:00 [facility] SARS-COV-2 COVID-19 2020-12-13 Completed Unive rsity of PFIZER VACCINE 00:00:00 [facility] SARS-COV-2 COVID-19 2020-12-13 Completed Unive rsity of PFIZER VACCINE 00:00:00 [facility] SARS-COV-2 COVID-19 2020-12-13 Completed Unive rsity of PFIZER VACCINE 00:00:00 [facility] SARS-COV-2 COVID-19 2020-12-13 Completed Unive rsity of PFIZER VACCINE 00:00:00 [facility] SARS-COV-2 COVID-19 2020-12-13 Completed Unive rsity of PFIZER VACCINE 00:00:00 [facility] SARS-COV-2 COVID-19 2020-12-13 Completed Unive rsity of PFIZER VACCINE 00:00:00 [facility] SARS-COV-2 COVID-19 2020-12-13 Completed Unive rsity of PFIZER VACCINE 00:00:00 [facility] SARS-COV-2 COVID-19 2020-12-13 Completed Unive rsity of PFIZER VACCINE 00:00:00 [facility] SARS-COV-2 COVID-19 2020-12-13 Completed Unive rsity of PFIZER VACCINE 00:00:00 [facility] SARS-COV-2 COVID-19 2020-12-13 Completed Unive rsity of PFIZER VACCINE 00:00:00 [facility] SARS-COV-2 COVID-19 2020-12-13 Completed Unive rsity of PFIZER VACCINE 00:00:00 [facility] SARS-COV-2 COVID-19 2020-12-13 Completed Unive rsity of PFIZER VACCINE 00:00:00 [facility] SARS-COV-2 COVID-19 2020-11-21 Completed Unive rsity of PFIZER VACCINE 00:00:00 [facility] SARS-COV-2 COVID-19 2020-11-21 Completed Unive rsity of PFIZER VACCINE 00:00:00 [facility] SARS-COV-2 COVID-19 2020-11-21 Completed Unive rsity of PFIZER VACCINE 00:00:00 [facility] SARS-COV-2 COVID-19 2020-11-21 Completed Unive rsity of PFIZER VACCINE 00:00:00 [facility] SARS-COV-2 COVID-19 2020-11-21 Completed Unive rsity of PFIZER VACCINE 00:00:00 [facility] SARS-COV-2 COVID-19 2020-11-21 Completed Unive rsity of PFIZER VACCINE 00:00:00 [facility] SARS-COV-2 COVID-19 2020-11-21 Completed Unive rsity of PFIZER VACCINE 00:00:00 [facility] SARS-COV-2 COVID-19 2020-11-21 Completed Unive rsity of PFIZER VACCINE 00:00:00 [facility] SARS-COV-2 COVID-19 2020-11-21 Completed Unive rsity of PFIZER VACCINE 00:00:00 [facility] SARS-COV-2 COVID-19 2020-11-21 Completed Unive rsity of PFIZER VACCINE 00:00:00 [facility] SARS-COV-2 COVID-19 2020-11-21 Completed Unive rsity of PFIZER VACCINE 00:00:00 [facility] SARS-COV-2 COVID-19 2020-11-21 Completed Unive rsity of PFIZER VACCINE 00:00:00 [facility] SARS-COV-2 COVID-19 2020-11-21 Completed Unive rsity of PFIZER VACCINE 00:00:00 [facility] SARS-COV-2 COVID-19 2020-11-21 Completed Unive rsity of PFIZER VACCINE 00:00:00 [facility] SARS-COV-2 COVID-19 2020-11-21 Completed Unive rsity of PFIZER VACCINE 00:00:00 [facility] SARS-COV-2 COVID-19 2020-11-21 Completed Unive rsity of PFIZER VACCINE 00:00:00 [facility] SARS-COV-2 COVID-19 2020-11-21 Completed Unive rsity of PFIZER VACCINE 00:00:00 [facility] SARS-COV-2 COVID-19 2020-11-21 Completed Unive rsity of PFIZER VACCINE 00:00:00 [facility] SARS-COV-2 COVID-19 2020-11-21 Completed Unive rsity of PFIZER VACCINE 00:00:00 [facility] Branch SARS-COV-2 COVID-19 2020-11-21 Completed Unive rsity of PFIZER VACCINE 00:00:00 [facility] Branch SARS-COV-2 COVID-19 2020-11-21 Completed Unive rsity of PFIZER VACCINE 00:00:00 [facility]icki Branch SARS-COV-2 COVID-19 2020-11-21 Completed Unive rsity of PFIZER VACCINE 00:00:00 [facility] SARS-COV-2 COVID-19 Unknown Completed Unive rsity of PFIZER VACCINE [facility] SARS-COV-2 COVID-19 Unknown Completed Unive rsity of PFIZER VACCINE [facility] SARS-COV-2 COVID-19 Unknown Completed Unive rsity of PFIZER VACCINE [facility] SARS-COV-2 COVID-19 Unknown Completed Unive rsity of PFIZER VACCINE [facility] SARS-COV-2 COVID-19 Unknown Completed Unive rsity of PFIZER VACCINE [facility] SARS-COV-2 COVID-19 Unknown Completed Unive rsity of PFIZER VACCINE [facility] SARS-COV-2 COVID-19 Unknown Completed Unive rsity of PFIZER VACCINE [facility] SARS-COV-2 COVID-19 Unknown Completed Unive rsity of PFIZER VACCINE [facility] SARS-COV-2 COVID-19 Unknown Completed Unive rsity of PFIZER VACCINE [facility] SARS-COV-2 COVID-19 Unknown Completed Unive rsity of PFIZER VACCINE [facility] Vital Signs Vital Name Observation Time Observation Value Comments Source Systolic blood 2022-12-28 15:30:00 127 mm[Hg] Univer sity of pressure [facility] Diastolic blood 2022-12-28 15:30:00 63 mm[Hg] Unive rsity of pressure [facility] Heart rate 2022-12-28 15:30:00 70 /min Universi ty of [facility] Oxygen saturation 2022-12-28 15:30:00 95 /min Uni versity of in Arterial blood [facility] by Pulse oximetry Branch Respiratory rate 2022-12-28 15:27:00 21 /min Univ ersity of [facility] Body height 2022-12-28 15:27:00 167.6 cm [facility] Body weight 2022-12-28 15:27:00 94.892 kg [facility] BMI 2022-12-28 15:27:00 33.77 kg/m2 [facility] Systolic blood 2022-07-10 22:40:00 142 mm[Hg] Univer sity of pressure [facility] Diastolic blood 2022-07-10 22:40:00 75 mm[Hg] Unive rsity of pressure [facility] Heart rate 2022-07-10 22:40:00 71 /min [facility] Respiratory rate 2022-07-10 22:40:00 21 /min Univ ersity of [facility] Oxygen saturation 2022-07-10 22:40:00 91 /min Uni versity of in Arterial blood [facility] by Pulse oximetry Branch Body temperature 2022-07-10 21:09:00 36.5 Caridad Univ ersity of [facility] Body height 2022-07-05 16:00:00 167.6 cm [facility] Body weight 2022-07-05 16:00:00 90.719 kg [facility] BMI 2022-07-05 16:00:00 32.28 kg/m2 [facility] Systolic blood 2022-07-10 21:15:00 132 mm[Hg] [facility] Diastolic blood 2022-07-10 21:15:00 62 mm[Hg] Unive [facility]ity of [facility] Respiratory rate 2022-07-10 21:15:00 20 /min Univ [facility] Oxygen saturation 2022-07-10 21:15:00 91 /min Uni versity of in Arterial blood [facility] Heart rate 2022-07-10 21:10:00 71 /min [facility] Body temperature 2022-07-10 21:09:00 36.5 Caridad [facility] Body height 2022-07-05 16:00:00 167.6 cm [facility] Body weight 2022-07-05 16:00:00 90.719 kg [facility] BMI 2022-07-05 16:00:00 32.28 kg/m2 [facility] Systolic blood 2022-07-03 20:47:00 113 mm[Hg] [facility] Diastolic blood 2022-07-03 20:47:00 56 mm[Hg] [facility]ive [facility] of [facility] Heart rate 2022-07-03 20:47:00 92 /min [facility] Body temperature 2022-07-03 20:47:00 36.22 Caridad [facility] Respiratory rate 2022-07-03 20:47:00 18 /min [facility] Body height 2022-07-03 20:47:00 167.6 cm [facility] Body weight 2022-07-03 20:47:00 90.946 kg [facility] BMI 2022-07-03 20:47:00 32.36 kg/m2 [facility] Oxygen saturation 2022-07-03 20:47:00 94 /min pt is on 3L Uni versity of in Arterial blood [facility] Systolic blood 2022-06-28 14:46:00 156 mm[Hg] [facility]iver [facility] Diastolic blood 2022-06-28 14:46:00 70 mm[Hg] [facility] Heart rate 2022-06-28 14:45:00 66 /min [facility] Body temperature 2022-06-28 14:45:00 36.83 Caridad [facility] Respiratory rate 2022-06-28 14:45:00 18 /min [facility] Body height 2022-06-28 14:45:00 167.6 cm [facility] Body weight 2022-06-28 14:45:00 87.544 kg [facility] BMI 2022-06-28 14:45:00 31.15 kg/m2 [facility] Oxygen saturation 2022-06-28 14:45:00 96 /min Uni versity of in Arterial blood [facility] Heart rate 2021-03-16 17:31:00 56 /min [facility] Respiratory rate 2021-03-16 17:31:00 16 /min [facility] Oxygen saturation 2021-03-16 17:31:00 94 /min Uni versity of in Arterial blood [facility] Systolic blood 2021-03-16 17:27:00 187 mm[Hg] [facility] Diastolic blood 2021-03-16 17:27:00 84 mm[Hg] [facility]ive [facility] of [facility] Body temperature 2021-03-16 17:13:00 36.44 Caridad [facility] Body height 2021-03-09 20:58:00 167.6 cm [facility] Body weight 2021-03-09 20:58:00 89.8 kg [facility] BMI 2021-03-09 20:58:00 31.95 kg/m2 [facility] Systolic blood 2021-03-16 14:41:00 179 mm[Hg] [facility] Diastolic blood 2021-03-16 14:41:00 81 mm[Hg] [facility] of [facility] Heart rate 2021-03-16 14:41:00 59 /min [facility] Body temperature 2021-03-16 14:41:00 36.39 Caridad [facility] Respiratory rate 2021-03-16 14:41:00 19 /min [facility] Oxygen saturation 2021-03-16 14:41:00 94 /min Uni versity of in Arterial blood [facility] by Pulse oximetry Branch Body height 2021-03-09 20:58:00 167.6 cm Universi ty of [facility] Body weight 2021-03-09 20:58:00 89.8 kg [facility] BMI 2021-03-09 20:58:00 31.95 kg/m2 Universi ty of [facility] Heart rate 2021-02-23 15:32:00 59 /min Universi ty of [facility] Oxygen saturation 2021-02-23 15:32:00 95 /min Uni versity of in Arterial blood [facility] by Pulse oximetry Branch Systolic blood 2021-02-23 15:29:00 176 mm[Hg] Univer sity of pressure [facility] Diastolic blood 2021-02-23 15:29:00 85 mm[Hg] [facility]ive [facility] of [facility] Respiratory rate 2021-02-23 15:29:00 20 /min Univ ersity of [facility] Body temperature 2021-02-23 15:16:00 36.22 Caridad Univ ersity of [facility] Body height 2021-02-20 19:08:00 167.6 cm [facility] Body weight 2021-02-20 19:08:00 89.8 kg [facility] BMI 2021-02-20 19:08:00 31.97 kg/m2 [facility] Systolic blood 2021-02-23 13:11:00 160 mm[Hg] [facility] Diastolic blood 2021-02-23 13:11:00 70 mm[Hg] Unive rsity of pressure [facility] Heart rate 2021-02-23 13:11:00 63 /min Universi ty of [facility] Body temperature 2021-02-23 13:11:00 37.06 Caridad Univ ersity of [facility] Respiratory rate 2021-02-23 13:11:00 19 /min Univ ersity of [facility] Oxygen saturation 2021-02-23 13:11:00 97 /min Uni versity of in Arterial blood [facility] Pulse oximetry [facility] Body height 2021-02-20 19:08:00 167.6 cm [facility] Body weight 2021-02-20 19:08:00 89.8 kg [facility] BMI 2021-02-20 19:08:00 31.97 kg/m2 [facility] Procedures Procedure Date / Time Performing Source Performed Clinician AUTHORIZATION TO RELEASE PHI 2022-12-28 Doctor Unassigned, [facility] TO [facility] 05:01:00 [place] [facility] MEDICAL RELEASE/CLEARANCE 2022-08-29 Doctor Unassigned, [place] versity [facility] FORMS 05:01:00 [facility] [facility] UMBILICAL HERNIORRHAPHY 2022-07-10 Kimberley Christy [facility] 18:38:00 Medical Branch LAPAROSCOPIC INTRAPERITONEAL 2022-07-10 Kimberley Christy [facility] CATHETER PLACEMENT 18:38:00 Medical Bran h DAY SURGERY - ADC 2022-07-10 Doctor Unassigned, [facility] 05:01:00 [facility] NOTICE OF PRIVACY PRACTICES 2022-07-06 Doctor Unassigned, [facility] 21:05:09 [facility] NOTICE OF PRIVACY PRACTICES 2022-07-06 Doctor Unassigned, [facility] 21:05:09 [facility] CONSENT/REFUSAL FOR DIAGNOSIS 2022-07-06 Doctor Unassigned, [facility] AND TREATMENT 21:04:40 [facility] CONSENT/REFUSAL FOR DIAGNOSIS 2022-07-06 Doctor Unassigned, [facility] AND TREATMENT 21:04:40 [facility] ASSIGNMENT OF BENEFITS 2022-07-06 Doctor Unassigned, [facility] 21:04:16 [facility] [facility] ASSIGNMENT OF BENEFITS 2022-07-06 Doctor Unassigned, [facility] 21:04:16 [facility] MEDICAL RELEASE/CLEARANCE 2022-07-02 Doctor Unassigned, Uni versity [facility] FORMS 05:01:00 [facility] CONSENT/REFUSAL FOR DIAGNOSIS 2022-06-28 Doctor Unassigned, [facility] AND TREATMENT 13:52:58 [facility] [facility] REFERRAL- REQUEST/RESPONSE 2022-06-13 Doctor Unassigned, [facility] 06:01:00 [facility] HEPATITIS B SURFACE ANTIBODY 2021-11-[address] [facility] 02:26:00 [facility] HEPATITIS B CORE ANTIBODY, 2021-11-09 [facility] 02:26:00 [facility] HEPATITIS B SURFACE ANTIGEN 2021-11-[address] [facility] 02:26:00 [facility] HEPATITIS C ANTIBODY 2021-11-[address] [facility] 02:26:00 [facility] PHACOEMULSIFICATION OF 2021-03-16 [facility] CATARACT WITH INTRAOCULAR 16:18:00 [facility] LENS IMPLANT ASSIGNMENT OF BENEFITS 2021-03-13 Doctor Unassigned, [facility] 15:20:07 [place] [facility] PHACOEMULSIFICATION OF 2021-02-23 [facility] CATARACT WITH INTRAOCULAR 14:30:00 [facility] LENS IMPLANT CBC WITH DIFF 2021-02-20 Johnathon [facility] xas 14:56:00 [facility] COVID-19 (ID NOW RAPID 2021-02-20 John[facility] TESTING) 14:50:00 [facility] Encounters Start End Encounter Admission Attending Care Care Encounter Source Date/Time Date/Time Type Type Clinicians Facility Department ID 2022-12-28 2022-12-28 [facility] 1.2.840.114 [id number] Univers 11:00:00 11:00:00 Visit Paul DUEÑAS [id number] ity [facility] [id number] [id number] Or dical NAL 059 Branch [facility] 2022-12-28 2022-12-28 [facility] [id number] Univers 11:00:00 10:57:11 PAUL rubiny o f [facility] 2022-12-28 2022-12-28 Orders Doctor MCKEON 1.2.840.114 [id number] Univers 00:00:00 00:00:00 Only Unassigned, SON 350.1.13.10 [facility] [id number] Jerem[place] as [id number] [address] 2022-12-242022-12-24 Refill [facility] 1.2.840.114 [id number] Univers 00:00:00 00:00:00 Momogregg JARRETTTON [id number] ity [place] [phone] Or dic[address] 2022-12-12 2022-12-12 Telephone [facility] [id number] Univers 00:00:00 00:00:00 Momogregg LEANA 350.1.13.10 [place] [id number] [address] 2022-08-29 2022-08-29 [facility] 1.2.019.045 [id number] Univers 00:00:00 00:00:00 Paul DUEÑAS 350.1.13.10 [place] [id number] [address] 2022-08-29 2022-08-29 Orders Doctor MIKE 1.2.840.114 [id number] Univers 00:00:00 00:00:00 Only Unassigned, SON 350.1.13.10 ity of [place] [facility] 4.2.7.2.686 Jeremi as [phone] [address] 2022-08-28 2022-08-28 Telephone [facility] [id number] Univers 00:00:00 00:00:00 Momogregg LEANA 350.1.13.10 [place] [phone] Or dic[address] 2022-08-02 2022-08-02 Outpatient Jonelle CHRISTY [facility] [id number] Univers 11:30:00 11:30:00 KIMBERLEY jo [facility] 2022-07-10 2022-07-10 Outpatient Jonelle CHRISTY [facility] SHAHID [id number] Univers 11:03:00 17:55:00 KIMBERLEY salazar [facility] 2022-07-10 2022-07-10 Hospital [facility] 1.2.840.114 [id number] Univers 11:03:00 17:55:00 Encounter Kimberley DUEÑAS 350.1.13.10 [place] [id number] [facility] 071 Branch 2022-07-10 2022-07-10 Surgery [facility] 1.2.080.149 [id number] Univers 12:50:00 16:15:00 Kimberley DUEÑAS 350.1.13.10 i ty [place] [id number] [facility] 020 Branch 2022-07-10 2022-07-10 Telephone [facility] 1.2.840.114 [id number] Univers 00:00:00 00:00:00 Kimberley DUEÑAS 350.1.13.10 i ty [place] [id number] Or dical NAL 188 Branch BUILDING 2022-07-10 2022-07-10 Orders Doctor MIKE 1.2.840.114 [id number] Univers 00:00:00 00:00:00 Only Unassigned, SON 350.1.13.10 ity of [place] [facility] 4.2.7.2.686 Jeremi as [phone] [facility] 009 Branch 2022-07-06 2022-07-06 Laboratory Only, Adc Test [facility] 1.2.840. 114 [id number] Univers 10:00:00 10:15:00 Only Kimberley Christy 350.1.13.10 [place] [id number] [facility] 353 Branch 2022-07-06 2022-07-06 Outpatient R LUCHO [facility] [id number] Univers 10:00:00 10:00:00 KIMBERLEY sandro [facility] 2022-07-03 2022-07-03 Outpatient R ALLEN [facility] [id number] Univers 15:40:00 16:19:04 PAUL jo o f [facility] 2022-07-03 2022-07-03 Office [facility] 1.2.840.114 [id number] Univers 15:40:00 16:19:04 Visit Paul DUEÑAS 350.1.13.10 ity of [facility] 4[place] [phone] Or dical NAL 059 [facility] 2022-07-02 2022-07-02 Orders Doctor MIKE 1.2.840.114 [id number] Univers 00:00:00 00:00:00 Only Unassigned, SON 350.1.13.10 ity [place] [facility] 4.2.7.2.686 Jeremi as [id number] [address] 2022-06-28 2022-06-28 Outpatient R [facility] [id number] Univers 09:00:00 11:39:41 KIMBERLEY jo [facility] 2022-06-28 2022-06-28 Office [facility] [id number] Univers 09:00:00 11:39:41 Visit Kimberley LEANA 350.1.13.10 i ty of [facility] 4[place] [id number] Or dical NAL 188 [facility] 2022-06-28 2022-06-28 Orders Doctor MCKEON 1.2.840.114 [id number] Univers 00:00:00 00:00:00 Only Unassigned, SON 350.1.13.10 ity of [place] [facility] 4.2.7.2.686 Jeremi as [id number] [address] 2022-06-21 2022-06-21 Outpatient R [facility] [id number] Univers 09:00:00 09:00:00 KIMBERLEY jo [facility] 2022-06-13 2022-06-13 Orders Doctor MCKEON 1.2.840.114 [id number] Univers 00:00:00 00:00:00 Only Unassigned, SON 350.1.13.10 ity of [place] [facility] 4.2.7.2.686 Jeremi as [id number] [facility] 009 Branch 2022-04-30 2022-04-30 Outpatient R MELITA [facility] [id number] Univers 00:00:00 00:00:00 JORGE L scottieandria o f [facility] 2021-11-09 2021-11-09 Lab [facility] [id number] 00:00:00 00:00[facility]00 [facility] 2021-03-16 2021-03-16 [facility] [id number] Univers 08:29:00 11:46:00 TRES itandria [facility] 2021-03-16 2021-03-16 [facility] 1.2.840.114 [id number] Univers 08:29:00 11:46:00 Encounter Tres DUEÑAS 350.1.13.10 ity of [place] [id number] [facility] 071 Branch 2021-03-16 2021-03-16 Surgery [facility] 1.2.840.114 [id number] Univers 09:54:00 10:30:00 Tres DUEÑAS 350.1.13.10 i ty of [place] [id number] [facility] 020 Branch 2021-03-13 2021-03-13 Orders Doctor MCKEON 1.2.840.114 [id number] Univers 00:00:00 00:00:00 Only Unassigned, SON 350.1.13.[address] [facility] 4.2.7.2.686 Jeremi as [phone] [facility] 009 Branch 2021-02-23 2021-02-23 [facility] [id number] Univers 07:00:00 09:45:00 TRES jo [facility] 2021-02-23 2021-02-23 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 Pancho, Adc Lab Main [facility] 1.2.8 40.114 [id number] Univers 08:35:12 08:50:12 Visit Tres [place] 350.1.1 3.10 ity wil[place] [id number] Or dical [address] 2021-02-20 2021-02-20 Outpatient R JOHNATHON [facility] [id number] [facility] 08:45:00 08:45:00 TRES jo [facility] Results Test Description Test Time Test Comments Results Result Comments Source Hepatitis B surface antibody 2021-11-09 11:07:39 Test Item Value Reference Range Interpretation Comme nts Hep B S Ab (test code = <8.0 See_Comment [Au tomated message] The 73220-1) system which ge nerated this result transmit connie reference range : <8.0 mIU/mL. The ref erence range was not used to interpret this result as normal/abnormal . BERT (test code = BERT) Lead Business Analyst ID - LESLIE M Lab Interpretation (test Normal code = 73917-4) [facility] [id number] 11:07:39 Test Item Value Reference Range Interpretation Comments Hep B S Ab (test code <8.0 See_Comment [Auto mated = 23445-6) message] The system which generated this result transmit connie reference range : <8.0 mIU/mL. Th e reference range was not used to interpret this result as normal/abnormal . BERT (test code = BERT) Lead Business Analyst ID - LESLIE M Lab Interpretation Normal (test code = 67366-3) [facility] [id number] 11:07:39 Test Item Value Reference Range Interpretation Comments Hep B S Ab (test code <8.0 See_Comment [Auto mated = 21108-2) message] The system which generated this result transmit connie reference range : <8.0 mIU/mL. e reference range was not used to interpret this result as normal/abnormal . BERT (test code = BERT) Lead Business Analyst ID - LESLIE M Lab Interpretation Normal (test code = 90281-1) [facility] [id number] 11:07:39 Test Item Value Reference Range Interpretation Comments HEPATITIS B SURFACE ANTIBODY < mIU/mL <8.0 (BEAKER) (test code = 647) Lead Business Analyst ID - LESLIE MHepatitis C [id number] 11:00:00 Test Item Value Reference Range Interpretation Comments Hepatitis C Ab (test Nonreactive Nonreactive code = 42919-8) BERT (test code = BERT) Lead Business Analyst ID - LESLIE M Lab Interpretation (test Normal code = 33899-6) [facility] [id number] 11:00:00 Test Item Value Reference Range Interpretation Comments Hepatitis C Ab (test Nonreactive Nonreactive code = 11895-7) BERT (test code = BERT) Lead Business Analyst ID - LESLIE M Lab Interpretation (test Normal code = 58276-6) [facility] [id number] 11:00:00 Test Item Value Reference Range Interpretation Comments Hepatitis C Ab (test Nonreactive Nonreactive code = 47405-4) BERT (test code = BERT) Lead Business Analyst ID - LESLIE M Lab Interpretation (test Normal code = 91617-3) [facility] [id number] 11:00:00 Test Item Value Reference Range Interpretation Comments HEPATITIS C ANTIBODY (BEAKER) Nonreactive Nonreactive (test code = 367) Lead Business Analyst ID - LESLIE MHepatitis B core antibody, [id number] 10:59:55 Test Item Value Reference Range Interpretation Comments Hep B C IgM (test code = Nonreactive Nonreactive 99782-0) BERT (test code = BERT) Lead Business Analyst ID - LESLIE M Lab Interpretation (test Normal code = 27774-9) [facility], [id number] 10:59:55 Test Item Value Reference Range Interpretation Comments Hep B C IgM (test code = Nonreactive Nonreactive 97810-6) BERT (test code = BERT) Lead Business Analyst ID - LESLIE M Lab Interpretation (test Normal code = 16489-7) [facility] core antibody, [id number] 10:59:55 Test Item Value Reference Range Interpretation Comments Hep B C IgM (test code = Nonreactive Nonreactive 39356-7) BERT (test code = BERT) Lead Business Analyst ID - LESLIE M Lab Interpretation (test Normal code = 53197-4) [facility], [id number] 10:59:55 Test Item Value Reference Range Interpretation Comments HEPATITIS B CORE IGM ANTIBODY Nonreactive Nonreactive (BEAKER) (test code = 645) Lead Business Analyst ID - LESLIE MHepatitis B surface [id number] 10:59:54 Test Item Value Reference Range Interpretation Comments Hepatitis B surface Nonreactive Nonreactive antigen (test code = 5195-3) BERT (test code = BERT) Specimen is considered negative for HBsAg. Lab Interpretation (test Normal code = 06513-7) [facility] [id number] 10:59:54 Test Item Value Reference Range Interpretation Comments Hepatitis B surface Nonreactive Nonreactive antigen (test code = 5195-3) BERT (test code = BERT) Specimen is considered negative for HBsAg. Lab Interpretation (test Normal code = 02108-5) [facility] [id number] 10:59:54 Test Item Value Reference Range Interpretation Comments Hepatitis B surface Nonreactive Nonreactive antigen (test code = 5195-3) BERT (test code = BERT) Specimen is considered negative for HBsAg. Lab Interpretation (test Normal code = 72470-8) [facility] [id number] 10:59:54 Test Item Value Reference Range Interpretation Comments HEPATITIS B SURFACE ANTIGEN (2) Nonreactive Nonreactive (BEAKER) (test code = 2585) Specimen is considered negative for HBsAg.CBC WITH [id number] 15:01:08 Test Item Value Reference Range Interpretation [...] (test code = 56.7 fL 38.5-51.6 H 99065-4) RDW-CV (test code = 15.7 % 12.1-15.4 H 788-0) PLT (test code = See_Comment [Automated 777-3) message] The sy stem which generated this result transmitted reference range : 150 - 328 10*3/ ?L. The reference r joaquin was not used to interpret this result as normal/abnormal . MPV (test code = 10.8 fL 9.8-13.0 41057-5) NRBC/100 WBC (test See_Comment [Automat ed code = [id number]) message] The system which generated this result transmitted reference range : 0.0 - 10.0 /100 WBCs. The refer ence range was not u sed to interpret th is result as normal/abnormal . NRBC x10^3 (test code <0.01 See_Comment [Auto mated = [id number]) message] The s ystem which generated this result transmitted reference range : 10*3/?L. The reference range was not used to interpret this result as normal/abnormal . GRAN MAT (NEUT) % 76.8 % (test code = 770-8) IMM GRAN % (test code 0.80 % = 4185213188) LYMPH % (test code = 16.0 % 736-9) MONO % (test code = 5.8 % 5905-5) EOS % (test code = 0.0 % 713-8) BASO % (test code = 0.6 % 706-2) GRAN MAT x10^3(ANC) 5.54 10*3/uL 1.99-6.95 (test code = 4757671114) IMM GRAN x10^3 (test 0.06 10*3/uL 0.00-0.06 code = 9240131540) LYMPH x10^3 (test code 1.15 10*3/uL 1.09-3.23 = 731-0) MONO x10^3 (test code 0.42 10*3/uL 0.36-1.02 = 742-7) EOS x10^3 (test code = <0.03 0.06-0.53 L 711-2) BASO x10^3 (test code 0.04 10*3/uL 0.01-0.09 = 704-7) Lab Interpretation Abnormal (test code = 33871-3) [facility] [id number] 12:20:00Addendum BeginsREPORT STATUS:A Addendum: I have reviewed the nonvascular features of this examination concur with Dr. Stewart's report. There is been interval growth in the size of the largest cyst in the left kidney from 5.7 to 8.1 cm. The other renal lesions are unchanged in sizeand configuration. Signed: Mehdi Boone MDReport Verified Date/Time: 10/22/2018 12:20:45 Reading Location: [place] [address] Angio Body Reading RoomAddendum EndsFINAL REPORT CT of the abdomen and pelvis, without contrast, Oct 24 INDICATION: This is a 73 year old male with history ofabdominal aortic aneurysm status post endovascular exclusion. Patient presents for followup evaluation. TECHNIQUE: Spiral acquisition was performed with mild intravenous contrast administration using [facility] multidetector scanner. Multi-planar 3-D volume- rendering reconstruction [...] and the right. Prior addendum by the Hadoop Software Engineer Radiologist, the calcification could be related to [...] dictated regarding the non-vascular findings by the Hadoop Software Engineer Radiologists. Signed: Fausto Stewart MDReport Verified Date/Time: 10/22/2018 10:10:53 Reading Location: [place] [address] Cardiology MRI
--- NOTE | 2023-01-28 19:49 | RAD REPORT ---
EXAM DESCRIPTION: [facility] [place] Single View01/28/2023 7:24 pm CLINICAL HISTORY: fever COMPARISON: January 11, 2023 FINDINGS: The lungs appear clear of acute infiltrate. The heart is borderline enlarged IMPRESSION: No acute abnormalities displayed
[2023-01-28 19:59] LABS: Absolute Lymphocytes (CBC) 0.2 K/uL (0.7-4.9); Hematocrit 27.3 % (39.6-49.0); Lymphocytes % 1.6 % (15.3-44.8); MCV 99.4 fL (80-100); MPV 10.2 fL (7.6-11.3); Platelets 133 thou/uL (152-406); RBC Red Blood Cell Count 2.74 M/uL (4.33-5.43)
[2023-01-28 20:04] LABS: Protime INR 1.07
[2023-01-28 20:10] LABS: Albumin 2.2 g/dL (3.4-5.0); Bilirubin Total 0.4 mg/dL (0.2-1.0); Potassium 4.6 mEq/L (3.5-5.1); Protein, Total 6.2 g/dL (6.4-8.2)
[2023-01-28] MEDS ORDERED: NA CHLORIDE 0.9% 250 ML ONE ×3 (20:12→21:49)
[2023-01-28] MEDS ORDERED: ACETAMINOPHEN 325 MG TABLET ONE (20:12)
[2023-01-28] MEDS ORDERED: VANCOMYCIN 1 GM/VIAL ONE (21:48)
[2023-01-28] MEDS ORDERED: NA CHLORIDE 0.9% 100 ML ONE (21:49)
[2023-01-28] MEDS ORDERED: PIPERACIL/TAZO 3.375 GM VIAL IV ONE (21:50)
[2023-01-28] MEDS ORDERED: LIDOCAINE 1% MPF 30 ML VIAL ONE (21:50)
[2023-01-28] MEDS ORDERED: NOREPINEPHRINE BITARTRATE/D5W 4 MG/250 ML BAG IV ONE (21:50)
--- NOTE | 2023-01-28 22:10 | ER ---
Nurse's Notes [facility] Name: Enrrique Vaughn Age: 77 yrs Sex: Male : 1945 Arrival Date: 01/28/2023 Time: 18:24 Bed 19 Private MD: Diagnosis: Hypotension, unspecified;Fever, unspecified;Dyspnea-hypoxia Presentation: 01/28 18:48 Chief complaint: Spouse and/or significant other states: Pt had a stent placed in right cm10 thigh today and started having fever, chills and shaking. Pt's reports that patient had a similar reaction last time he had this procedure. Coronavirus screen: Vaccine status: Patient reports receiving the 2nd dose of the covid vaccine. Client denies travel out of the [place] in the last 14 days. Ebola Screen: Patient denies travel to an Ebola-affected area in the 21 days before illness onset. No symptoms or risks identified at this time. Initial Sepsis Screen: Does the patient meet any 2 criteria? Systolic BP < 90 mmHg. HR > 90 bpm. Does the patient have a suspected source of infection? No. Patient's initial sepsis screen is negative. Risk Assessment: Do you want to hurt yourself or someone else? Patient reports no desire to harm self or others. Onset of symptoms was January 28, 2023. 18:48 Method Of Arrival: Wheelchair cm10 18:48 Acuity: SAMANTHA 2 cm10 Triage Assessment: 19:48 General: Appears in no apparent distress. uncomfortable, Behavior is calm, cooperative. jw7 Pain: Denies pain. EENT: No deficits noted. No signs and/or symptoms were reported regarding the EENT system. Neuro: Carreno Agitation-Sedation Scale (RASS): 0 - Alert and Calm. Cardiovascular: Reports fatigue, lightheadedness, shortness of breath, Denies chest pain, Capillary refill < 3 seconds Clubbing of nail beds is absent JVD is absent Patient's skin is warm and dry. Rhythm is sinus rhythm with unifocal PVCs. Respiratory: Reports shortness of breath at rest on exertion Airway is patent Trachea midline Respiratory effort is even, unlabored, Respiratory pattern is regular, symmetrical, Onset: The symptoms/episode began/occurred today. GI: No signs and/or symptoms were reported involving the gastrointestinal system. Abdomen is round distended, Bowel sounds present X 4 quads. Reports Peritoneal Dialysis every night. : No signs and/or symptoms were reported regarding the genitourinary system. Derm: No signs and/or symptoms reported regarding the dermatologic system. Skin is intact, is fragile, Skin is dry, Skin is normal, Skin temperature is warm. Musculoskeletal: No signs and/or symptoms reported regarding the musculoskeletal system. Circulation, motion, and sensation intact. Range of motion: intact in all extremities. Historical: - Allergies: 18:52 atorvastatin calcium; cm10 18:52 Lipitor; cm10 18:52 Niacin; cm10 18:52 Niaspan; cm10 18:52 Paxil; cm10 18:52 Tape; cm10 - PMHx: 18:52 COPD; kidney failure stage 5; Hypertension; Prostate Cancer; Gout; Peritoneal Dialysis cm10 (Gout); - Immunization history:: Adult Immunizations unknown. - Social history:: Smoking status: unknown. Screenin:53 [facility] ED Fall Risk Assessment (Adult) History of falling in the last 3 months, jw7 including since admission No falls in past 3 months (0 pts) Confusion or Disorientation No (0 pts) Intoxicated or Sedated No (0 pts) Impaired Gait Yes (1 pt) Mobility Assist Device Used Yes (1 pt) Altered Elimination No (0 pt) Score/Fall Risk Level 0 - 2 = Low Risk Oriented to surroundings, Maintained a safe environment, Educated pt \\T\\ family on fall prevention, incl call for assistance when getting out of bed. Abuse screen: Denies threats or abuse. Denies injuries from another. Nutritional screening: No deficits noted. Tuberculosis screening: No symptoms or risk factors identified. Assessment: 20:36 General: see triage assessment. jw7 21:30 Reassessment: Patient appears in no apparent distress at this time. No changes from jw7 previously documented assessment. Patient and/or family updated on plan of care and expected duration. Pain level reassessed. Patient is alert, oriented x 3, equal unlabored respirations, skin warm/dry/pink. 22:25 Reassessment: Patient appears in no apparent distress at this time. No changes from jw7 previously documented assessment. Patient and/or family updated on plan of care and expected duration. Pain level reassessed. Patient is alert, oriented x 3, equal unlabored respirations, skin warm/dry/pink. 23:56 Reassessment: Patient appears in no apparent distress at this time. No changes from jw7 previously documented assessment. Patient and/or family updated on plan of care and expected duration. Pain level reassessed. Patient is alert, oriented x 3, equal unlabored respirations, skin warm/dry/pink. 01/29 00:30 General: Patient's spouse started his peritoneal dialysis. jw7 00:45 Reassessment: Patient appears in no apparent distress at this time. No changes from jw7 previously documented assessment. Patient and/or family updated on plan of care and expected duration. Pain level reassessed. Patient is alert, oriented x 3, equal unlabored respirations, skin warm/dry/pink. 01:44 Reassessment: Patient appears in no apparent distress at this time. Patient and/or jw7 family updated on plan of care and expected duration. Pain level reassessed. resting with eyes closed, respirations are even and unlabored, with RR 16, O2 94% with CPAP at 3L. 04:46 General: Report given to receiving nurse in ICU . jw7 05:05 General: Transfer to room upstairs is pending completion of Peritoneal Dialysis, spouse jw7 states "PD should be finished within an hour and a half". Vital Signs: 01/28 18:48 BP 87 / 51; Pulse 112; Resp 18; Temp 100.4(O); Pulse Ox 93% on 3 lpm NC; Weight 93.89 cm10 kg (R); Height 5 ft. 6 in. (R); 19:03 BP 81 / 58; Pulse 104; Resp 18; Pulse Ox 94% on 3 lpm NC; jw7 19:45 BP 78 / 53; Pulse 98; Resp 16; Pulse Ox 96% on 4 lpm NC; jw7 20:00 BP 77 / 44; Pulse 88; Resp 15 S; Pulse Ox 96% on R/A; jw7 20:30 Temp 98.4(O); jw7 20:30 BP 104 / 65; Pulse 85; Resp 18 S; Pulse Ox 96% on 4 lpm NC; jw7 21:00 BP 88 / 44; Pulse 85; Resp 18 S; Pulse Ox 94% on 4 lpm NC; jw7 21:08 BP 85 / 57; Pulse 82; Resp 16 S; Pulse Ox 97% on 4 lpm NC; jw7 21:15 BP 99 / 53; Pulse 82; Resp 17 S; Pulse Ox 95% on 4 lpm NC; jw7 21:30 BP 112 / 63; Pulse 81; Resp 16 S; Pulse Ox 96% on 4 lpm NC; jw7 22:00 BP 106 / 57; Pulse 80; Resp 15 S; Pulse Ox 94% on 4 lpm NC; jw7 22:15 BP 85 / 47; Pulse 77; Resp 15 S; Pulse Ox 96% on 4 lpm NC; jw7 22:30 BP 83 / 44; Pulse 76; Resp 17 S; Pulse Ox 97% on 4 lpm NC; jw7 22:45 BP 120 / 61; Pulse 71; Resp 17 S; Pulse Ox 97% on 4 lpm NC; jw7 23:00 BP 113 / 47; Pulse 66; Resp 17 S; Pulse Ox 95% on 4 lpm NC; jw7 23:15 BP 110 / 51; Pulse 68; Resp 18 S; Pulse Ox 97% on 4 lpm NC; jw7 23:30 BP 107 / 49; Pulse 68; Resp 16 S; Pulse Ox 97% on 4 lpm NC; jw7 23:45 BP 103 / 48; Pulse 67; Resp 17 S; Pulse Ox 98% on 4 lpm NC; 7 01/29 00:00 BP 124 / 60; Pulse 66; Resp 16 S; Pulse Ox 97% on 4 lpm NC; jw7 00:15 BP 111 / 54; Pulse 65; Resp 19 S; Pulse Ox 95% on 4 lpm NC; jw7 00:30 BP 132 / 55; Pulse 63; Resp 15 S; Pulse Ox 97% on 3 lpm CPAP; jw7 00:45 BP 120 / 45; Pulse 64; Resp 16 S; Pulse Ox 94% on 3 lpm CPAP; jw7 01:00 BP 120 / 52; Pulse 65; Resp 16 S; Pulse Ox 94% on 3 lpm CPAP; jw7 01:15 BP 114 / 59; Pulse 66; Resp 14 S; Pulse Ox 94% on 3 lpm CPAP; jw7 01:30 BP 111 / 55; Pulse 67; Resp 16 S; Pulse Ox 93% on 3 lpm CPAP; jw7 01/28 18:48 Body Mass Index 33.41 (93.89 kg, 167.64 cm) cm10 ED Course: 01/28 18:27 Patient arrived in ED. mg5 18:34 Joanne Ferrer FNP-C is PSYCHIATRICP. kb 18:35 Arvind Gonzalez MD is Attending Physician. kb 18:52 Triage completed. cm10 18:53 Arm band placed on Patient placed in an exam room, on a stretcher. cm10 19:07 Phyllis Titus, CHRISTOPHER is Primary Nurse. jw7 19:26 Chest Single View XRAY In Process Unspecified. EDMS 19:30 Inserted saline lock: 20 gauge in left forearm, using aseptic technique. Blood jw7 collected. 19:30 Initial lab(s) drawn, by me, sent to lab. First set of blood cultures drawn by me, Flu jw7 and/or RSV swab sent to lab. 19:45 Second set of blood cultures drawn. jw7 19:48 Oxygen administration via nasal cannula \\T\\ 4L/min Response to oxygen therapy: symptoms jw7 improved. 19:53 Patient has correct armband on for positive identification. Bed in low position. Call jw7 light in reach. Side rails up X2. 19:55 Flu Sent. jw7 20:36 EKG done, by ED staff, reviewed by Joanne ZAPATA. jw7 21:09 Attending Physician role handed off by Arvind Gonzalez MD sp4 21:09 Lupillo Estevez MD is Attending Physician. sp4 22:09 Julio Stratton MD is Hospitalizing Provider. kb 22:23 Assisted provider with central line placement. Set up central line tray. Triple lumen jw7 line placed in right internal jugular. Line placed by Lupillo Estevez MD Placement verified by CXR, blood return, Dressed with Tegaderm, Patient tolerated well. Before procedure, did Practitioner(s) obtain informed consent? Yes. Patient \\T\\ family education about procedure, CLABSI prevention and S/S of infection? Yes. Time-out/Briefing performed prior to start of procedure? Yes. Was handwashing/sanitizing done immediately prior to procedure? Yes. Was patient positioned to in a way to prevent air embolism? Yes. Was procedure site sterilized? Yes, with chlorhexidine. Was the site allowed to dry? Yes. Was local anesthetic and/or sedation utilized? Yes. During the procedure, did the Practitioner(s) maintain a sterile field? Yes. Were unused ports clamped during insertion? Yes. Was blood aspirated from each lumen? Yes. After the procedure, did the Practitioner(s) clean the site and apply a sterile dressing? Yes. 23:57 Patient admitted, IV remains in place. jw7 23:58 Provided Education on: need for admit. jw7 Administered Medications: 20:00 Drug: Acetaminophen PO 650 mg PO once Route: PO; jw7 20:00 Drug: NS 0.9% IV 250 ml IV at bolus once Route: IV; Rate: bolus; Site: left forearm; jw7 22:12 Follow up: Response: No adverse reaction; IV Status: Completed infusion; IV Intake: jw7 250ml 21:05 Drug: NS 0.9% IV 250 ml IV at calculated rate once Route: IV; Rate: calculated rate; jw7 Site: left forearm; 22:12 Follow up: Response: No adverse reaction; IV Status: Completed infusion; IV Intake: jw7 250ml 22:11 Drug: vancoMYCIN IVPB 1 grams IVPB once over 2 hrs Route: IVPB; Infused Over: 2 hrs; jw7 Site: right jugular; 01/29 00:33 Follow up: Response: No adverse reaction; IV Status: Completed infusion; IV Intake: jw7 250ml 01/28 22:11 Drug: Piperacillin-Tazobactam IVPB 3.375 grams IVPB once over 60 mins; (mix in NS 100 jw7 mL) Route: IVPB; Infused Over: 60 mins; Site: left forearm; 23:58 Follow up: Response: No adverse reaction; IV Status: Completed infusion; IV Intake: jw7 100ml 22:11 Drug: Lidocaine Infiltration (1 %) 20 ml 20 ml Infiltration once; to bedside Volume: 20 jw7 ml; Route: Infiltration; 23:58 Follow up: Response: No adverse reaction jw7 22:42 Drug: Norepinephrine IV 0.1 mcg/kg/min IV at calculated rate See Administration jw7 Instructions; (Standard concentration 4 mg / 250 mL D5W); Recommended max rate 3 mcg/kg/min; Titrate 0.05 mcg/kg/min as often as every 5 minutes to achieve goal (see titration policy); Goal parameter MAP greater than 65 mmHg. Route: IV; Rate: calculated rate; Site: right jugular; 01/29 01:48 Follow up: Response: No adverse reaction; IV Status: Infusion continued jw7 Medication: 01/28 23:57 VIS not applicable for this client. jw7 Intake: 22:12 IV: 250ml; Total: 250ml. jw7 22:12 IV: 250ml; Total: 500ml. jw7 23:58 IV: 100ml; Total: 600ml. jw7 01/29 00:33 IV: 250ml; Total: 850ml. jw7 Outcome: 01/28 22:09 Decision to Hospitalize by Provider. kb 23:57 Condition: stable 7 23:57 Instructed on the need for admit, Demonstrated understanding of instructions, 01/29 01:58 [facility]. [facility]. as6 08:32 Patient left the ED. ko1 Signatures: Dispatcher [employer] EDMS Joanne Ferrer, CARGO SERVICES COORDINATOR-C CARGO SERVICES COORDINATOR-CkJameel Cote, RN RN as6 Phyllis Titus RN RN jw7 Parisa Delarosa RN RN ko1 Lupillo Estevez MD MD sp4 Eliane Michael RN RN cm10 Sheela Hager 5
--- NOTE | 2023-01-28 22:10 | EDPHYS ---
Physician Documentation [facility] Name: Enrrique Vaughn Age: 77 yrs Sex: Male : 1945 Arrival Date: 01/28/2023 Time: 18:24 Bed 19 Private MD: ED Physician Lupillo Estevez HPI: 01/28 21:30 This 77 yrs old Male presents to ER via Wheelchair with complaints of Fever, Allergic kb Reaction, Shakes. 21:30 Patient is a 77-year-old male who presents for fever, chills, shaking, shortness of kb breath that started shortly after he had a procedure for an arterial occlusion today. States symptoms were sudden in onset on the way home from procedure. States he had similar symptoms after he had the same procedure done on the left side at the beginning of the month but did not have fever at that time. reports oxygen saturation of 82% prior to arrival.. Historical: - Allergies: 18:52 atorvastatin calcium; cm10 18:52 Lipitor; cm10 18:52 Niacin; cm10 18:52 Niaspan; cm10 18:52 Paxil; cm10 18:52 Tape; cm10 - PMHx: 18:52 COPD; kidney failure stage 5; Hypertension; Prostate Cancer; Gout; Peritoneal Dialysis cm10 (Gout); - Immunization history:: Adult Immunizations unknown. - Social history:: Smoking status: unknown. ROS: 21:30 Abdomen/GI: Negative for abdominal pain, nausea, vomiting, diarrhea, and constipation, kb 21:30 Constitutional: Positive for chills, fever, 21:30 Respiratory: Positive for shortness of breath, 21:30 All other systems are negative, Exam: 22:03 Constitutional: This is a well developed, well nourished patient who is awake, alert, kb and in no acute distress. Head/Face: Normocephalic, atraumatic. ENT: Moist Mucous membranes Cardiovascular: Regular rate Respiratory: Respirations even and unlabored. No increased work of breathing. Talking in full sentences Abdomen/GI: non-tender. Skin: Warm, dry with normal turgor. Normal color. MS/ Extremity: Pulses equal, no cyanosis. Neurovascular intact. Full, normal range of motion. Neuro: Awake and alert, GCS 15, oriented to person, place, time, and situation. Moves all extremities. 22:03 Respiratory: mild respiratory distress is noted, Respirations: normal, Breath sounds: are clear throughout, Vital Signs: 18:48 BP 87 / 51; Pulse 112; Resp 18; Temp 100.4(O); Pulse Ox 93% on 3 lpm NC; Weight 93.89 cm10 kg (R); Height 5 ft. 6 in. (R); 19:03 BP 81 / 58; Pulse 104; Resp 18; Pulse Ox 94% on 3 lpm NC; jw7 19:45 BP 78 / 53; Pulse 98; Resp 16; Pulse Ox 96% on 4 lpm NC; jw7 20:00 BP 77 / 44; Pulse 88; Resp 15 S; Pulse Ox 96% on R/A; jw7 20:30 Temp 98.4(O); jw7 20:30 BP 104 / 65; Pulse 85; Resp 18 S; Pulse Ox 96% on 4 lpm NC; jw7 21:00 BP 88 / 44; Pulse 85; Resp 18 S; Pulse Ox 94% on 4 lpm NC; jw7 21:08 BP 85 / 57; Pulse 82; Resp 16 S; Pulse Ox 97% on 4 lpm NC; jw7 21:15 BP 99 / 53; Pulse 82; Resp 17 S; Pulse Ox 95% on 4 lpm NC; jw7 21:30 BP 112 / 63; Pulse 81; Resp 16 S; Pulse Ox 96% on 4 lpm NC; jw7 22:00 BP 106 / 57; Pulse 80; Resp 15 S; Pulse Ox 94% on 4 lpm NC; jw7 22:15 BP 85 / 47; Pulse 77; Resp 15 S; Pulse Ox 96% on 4 lpm NC; jw7 22:30 BP 83 / 44; Pulse 76; Resp 17 S; Pulse Ox 97% on 4 lpm NC; jw7 22:45 BP 120 / 61; Pulse 71; Resp 17 S; Pulse Ox 97% on 4 lpm NC; jw7 23:00 BP 113 / 47; Pulse 66; Resp 17 S; Pulse Ox 95% on 4 lpm NC; jw7 23:15 BP 110 / 51; Pulse 68; Resp 18 S; Pulse Ox 97% on 4 lpm NC; jw7 23:30 BP 107 / 49; Pulse 68; Resp 16 S; Pulse Ox 97% on 4 lpm NC; 7 23:45 BP 103 / 48; Pulse 67; Resp 17 S; Pulse Ox 98% on 4 lpm NC; 7 01/29 00:00 BP 124 / 60; Pulse 66; Resp 16 S; Pulse Ox 97% on 4 lpm NC; jw7 00:15 BP 111 / 54; Pulse 65; Resp 19 S; Pulse Ox 95% on 4 lpm NC; jw7 00:30 BP 132 / 55; Pulse 63; Resp 15 S; Pulse Ox 97% on 3 lpm CPAP; jw7 00:45 BP 120 / 45; Pulse 64; Resp 16 S; Pulse Ox 94% on 3 lpm CPAP; jw7 01:00 BP 120 / 52; Pulse 65; Resp 16 S; Pulse Ox 94% on 3 lpm CPAP; jw7 01:15 BP 114 / 59; Pulse 66; Resp 14 S; Pulse Ox 94% on 3 lpm CPAP; jw7 01:30 BP 111 / 55; Pulse 67; Resp 16 S; Pulse Ox 93% on 3 lpm CPAP; 7 01/28 18:48 Body Mass Index 33.41 (93.89 kg, 167.64 cm) cm10 Procedures: 01/28 22:00 Central Line: the site was prepped with in sterile fashion, Chlorhexidine prep, a sp4 triple lumen catheter was inserted, in the right internal jugular vein, in 1 attempts. placement was verified, by CXR, by blood return, Ultrasound-guided central line, the site was dressed with Tegaderm, using sterile technique, the patient tolerated the procedure, well, Ultrasound-guided triple-lumen central venous line placed right internal jugular location, no complication. MDM: 18:45 Patient medically screened. kb 19:00 ED course: Discussed case with Dr Gonzalez. Recommends bolus of 250ml due to ESRD . kb 20:00 ED course: Discussed case with Dr Gonzalez, recommends continuing boluses at 250ml kb intervals and reexam. 21:36 Data reviewed: vital signs, nurses notes. Consideration of Admission/Observation kb Patient was admitted/placed on observation. Escalation of care including admission/observation considered. ED course: Dr Estevez at bedside for central line placement after discussion and evaluation. 22:04 Differential diagnosis: viral Infection, bacterial infection, pneumonia sepsis. kb Management of patient was discussed with the following: Dr Ford discussed case with Dr Gonzalez. Dr Ford has spoken to Dr Stratton and [facility] about pt as well. . Historians other than the Patient: Spouse/Significant Other: . Care significantly affected by the following chronic conditions: ESRD on peritoneal dialysis. Counseling: I had a detailed discussion with the patient and/or guardian regarding the historical points, exam findings, and any diagnostic results supporting the discharge/admit diagnosis, lab results, radiology results, the need for further work-up and treatment in the hospital. ED course: Sepsis bolus not given due to ESRD on peritoneal dialysis and concern for volume overload. No source of infection identified at this time. . ED course: Sepsis reevaluation complete. BP 106/57 at this time. 22:08 Management of patient was discussed with the following: Primary Care Provider: Dr odell Estevez discussed case with Dr Stratton for admission. 01/29 05:56 ED course: I personally spoke with Dr. Stratton about admitting patient to ICU.. Also sp4 spoke with Dr. Thompson about peritoneal dialysis in the hospital. 01/28 18:54 Order name: Blood Culture Adult (2) kb 01/28 18:54 Order name: CBC with Diff; Complete Time: 20:10 kb 01/28 18:54 Order name: CMP; Complete Time: 20:32 kb 01/28 18:54 Order name: Lactate w/ 2H reflex if indic.; Complete Time: 20:10 kb 01/28 18:54 Order name: Protime (+inr); Complete Time: 20:10 kb 01/28 18:54 Order name: Ptt, Activated; Complete Time: 20:10 kb 01/28 18:54 Order name: Urinalysis w/ reflexes kb 01/28 18:56 Order name: Flu; Complete Time: 20:32 kb 01/28 18:56 Order name: COVID-19 SARS RT PCR; Complete Time: 23:29 kb 01/28 19:50 Order name: Glucose, Ancillary Testing; Complete Time: 19:53 EDMS 01/29 04:36 Order name: CBC with Automated Diff; Complete Time: 05:47 EDMS 01/29 05:09 Order name: Basic Metabolic Panel; Complete Time: 05:47 EDMS 01/29 05:16 Order name: Manual Differential; Complete Time: 05:47 EDMS 01/28 18:54 Order name: Chest Single View XRAY; Complete Time: 19:53 kb 01/28 22:02 Order name: Chest Single View XRAY sp4 01/28 18:54 Order name: EKG; Complete Time: 18:54 kb 01/28 18:54 Order name: Accucheck; Complete Time: 19:48 kb 01/28 18:54 Order name: Cardiac monitoring; Complete Time: 19:14 kb 01/28 18:54 Order name: EKG - Nurse/Tech; Complete Time: 20:36 kb 01/28 18:54 Order name: IV Saline Lock - Large Bore; Complete Time: 19:48 kb 01/28 18:54 Order name: Labs collected and sent; Complete Time: 19:48 kb 01/28 18:54 Order name: O2 Per Protocol; Complete Time: 19:14 kb 01/28 18:54 Order name: O2 Sat Monitoring; Complete Time: 19:14 kb 01/28 18:54 Order name: Vital Signs; Complete Time: 19:48 kb 01/28 21:21 Order name: Central Line Kit; Complete Time: 21:35 sp4 Administered Medications: 01/28 20:00 Drug: Acetaminophen PO 650 mg PO once Route: PO; jw7 20:00 Drug: NS 0.9% IV 250 ml IV at bolus once Route: IV; Rate: bolus; Site: left forearm; jw7 22:12 Follow up: Response: No adverse reaction; IV Status: Completed infusion; IV Intake: jw7 250ml 21:05 Drug: NS 0.9% IV 250 ml IV at calculated rate once Route: IV; Rate: calculated rate; jw7 Site: left forearm; 22:12 Follow up: Response: No adverse reaction; IV Status: Completed infusion; IV Intake: jw7 250ml 22:11 Drug: vancoMYCIN IVPB 1 grams IVPB once over 2 hrs Route: IVPB; Infused Over: 2 hrs; jw7 Site: right jugular; 01/29 00:33 Follow up: Response: No adverse reaction; IV Status: Completed infusion; IV Intake: jw7 250ml 01/28 22:11 Drug: Piperacillin-Tazobactam IVPB 3.375 grams IVPB once over 60 mins; (mix in NS 100 jw7 mL) Route: IVPB; Infused Over: 60 mins; Site: left forearm; 23:58 Follow up: Response: No adverse reaction; IV Status: Completed infusion; IV Intake: jw7 100ml 22:11 Drug: Lidocaine Infiltration (1 %) 20 ml 20 ml Infiltration once; to bedside Volume: 20 jw7 ml; Route: Infiltration; 23:58 Follow up: Response: No adverse reaction jw7 22:42 Drug: Norepinephrine IV 0.1 mcg/kg/min IV at calculated rate See Administration jw7 Instructions; (Standard concentration 4 mg / 250 mL D5W); Recommended max rate 3 mcg/kg/min; Titrate 0.05 mcg/kg/min as often as every 5 minutes to achieve goal (see titration policy); Goal parameter MAP greater than 65 mmHg. Route: IV; Rate: calculated rate; Site: right jugular; 01/29 01:48 Follow up: Response: No adverse reaction; IV Status: Infusion continued jw7 Disposition: 01/28 23:31 Co-signature as Attending Physician, Lupillo Estevez MD I agree with the assessment sp4 and plan of care. I reviewed the patient's care provided by Advanced Practice Provider \T\ agree w/ the diagnosis \T\ care plan. I personally saw the pt \T\ performed a substantive portion of the visit, incldng all aspects of the (History/Exam/Medical Decision Making). Disposition Summary: 01/28/23 22:09 Hospitalization Ordered Notes: Hospitalization Status: Inpatient Admission kb Provider: Julio Stratton Condition: Fair kb Problem: new kb Symptoms: are unchanged kb Bed/Room Type: Standard kb Location: Intensive Care Unit(01/29/23 04:08) Room Assignment: 1-(01/29/23 04:08) Diagnosis - Hypotension, unspecified kb - Fever, unspecified kb - Dyspnea - hypoxia kb Forms: - Medication Reconciliation Form kb - SBAR form kb - Leadership Thank You Letter kb Critical care time excluding procedures: 22:07 Critical care time: Bedside Care: 46 minutes, Consultation: 10 minutes, Family kb Intervention: 10 minutes. Total time: 66 minutes Signatures: Dispatcher [employer] Joanne Givens FNP-C FNP-Ckb Lewis, Kimberly RN Vivian Gary RN RN mw Slawson, Ashby, RN RN as6 Phyllis Titus RN RN jw7 Potepalov, Sergey, MD MD sp4 Eliane Michael RN RN cm10 Corrections: (The following items were deleted from the chart) 22:04 22:03 Constitutional: This is a well developed, well nourished patient who is awake, kb alert, and in no acute distress. Head/Face: Normocephalic, atraumatic. ENT: Moist Mucous membranes Cardiovascular: Regular rate Respiratory: Respirations even and unlabored. No increased work of breathing. Talking in full sentences Abdomen/GI: non-tender. Skin: Warm, dry with normal turgor. Normal color. MS/ Extremity: Pulses equal, no cyanosis. Neurovascular intact. Full, normal range of motion. Neuro: Awake and alert, GCS 15, oriented to person, place, time, and situation. Moves all extremities. Normal gait. kb 23: 22:09 Telemetry/MedSurg (Inpatient) as6 23: 22:09 kb as6 01/29 00:40 01/28 23:01 Intensive Care Unit [facility] 01/29 00:40 01/28 23:01 [facility] 01/29 04:08 00:40 [facility] ER HOLD kl mw 04:08 00:[address] [facility]- mw
[2023-01-29] MEDS ORDERED: ACETAMINOPHEN 500 MG TAB PO PRN (01:50)
[2023-01-29] MEDS ORDERED: VANCOMYCIN 1 GM in NA CHLORIDE 0.9% 250 ML IVPB SCH (01:50)
[2023-01-29] MEDS ORDERED: NOREPINEPHRINE 4 MG in D5W 250 ML IV SCH (01:50)
[2023-01-29] MEDS ORDERED: PIPER TAZO 3.375 GM in NA CHLORIDE 0.9% 100 ML IV SCH (02:00)
[2023-01-29] MEDS ORDERED: VANCOMYCIN 1.25 GM in NA CHLORIDE 0.9% 250 ML IVPB ONE (03:00)
[2023-01-29] MEDS ORDERED: VANCOMYCIN 1 GM/VIAL ONE (04:02)
[2023-01-29] MEDS ORDERED: VANCOMYCIN 500 MG/VIAL ONE (04:02)
[2023-01-29] MEDS ORDERED: NA CHLORIDE 0.9% 250 ML ONE (04:03)
[2023-01-29 04:27] LABS: Absolute Lymphocytes (CBC) 0.4 K/uL (0.7-4.9); Hematocrit 25.7 % (39.6-49.0); Lymphocytes % 4.6 % (15.3-44.8); MCV 99.8 fL (80-100); MPV 9.6 fL (7.6-11.3); Platelets 125 thou/uL (152-406); RBC Red Blood Cell Count 2.57 M/uL (4.33-5.43)
[2023-01-29 05:09] LABS: Potassium 4.3 mEq/L (3.5-5.1)
[2023-01-29 05:16] LABS: Blood Morphology Comment NOT SEEN (NOT SEEN); Platelet Estimate ADEQ
[2023-01-29] MEDS: PIPER TAZO 3.375 GM in NA CHLORIDE 0.9% 100 ML IV SCH ×2 (11:31→21:00)
--- NOTE | 2023-01-29 11:55 | EKG ---
Test Date: 2023-01-28 Test Time: 20:30:14 Controls Design Engineer: KHADIJAH MEASUREMENT RESULTS: Intervals: Rate: 82 VT: 218 QRSD: 80 QT: 362 QTc: 422 [place]: P: 63 VT: 218 QRS: 60 T: 93 INTERPRETIVE STATEMENTS: Sinus rhythm with 1st degree AV block Nonspecific T wave abnormality Abnormal ECG Compared to ECG 01/11/2023 10:57:59 First degree AV block now present Ventricular premature complex(es) no longer present T-wave abnormality still present Electronically Signed On 01-29-23 11:53:43 CDT by Bryn Dacosta
--- NOTE | 2023-01-29 12:45 | RAD REPORT ---
EXAM DESCRIPTION: RAD - Chest Single View - 01/28/2023 10:54 pm CLINICAL HISTORY: 77 years Male, Central line R IJ placement TECHNIQUE: 1 view (Single frontal view of the chest) COMPARISON: Chest x-ray performed earlier same day was not made available for comparison at time of this interpretation. FINDINGS: LINES AND TUBES: Right internal jugular central venous catheter with the tip within the mi d SVC. Thoracic canal spinal electrode leads. CARDIOVASCULAR STRUCTURES: Normal heart size. LUNGS: Coarse interstitial opacities. No confluent areas of acute consolidation. PLEURA: No layering pleural effusions. No pneumothorax. BONES: No acute osseous abnormality of the thorax. IMPRESSION: 1. Placement of right internal jugular central venous catheter with satisfactory posit ioning and no pneumothorax. 2. Coarse interstitial opacities compatible with chronic change plus or minus superimposed edema or infection. Electronically signed by: Ashwin Thibodeaux MD 01/28/2023 11:06 PM CDT Due to temporary technical issues with the PACS/Fluency reporting system, reports are being signed by the in house radiologists without review as a courtesy to insure prompt reporting. The interpreting radiologist is fully responsible for the content of the report.
--- NOTE | 2023-01-29 12:55 | P.HP ---
Certification for Inpatient Patient admitted to: Inpatient With expected LOS: >2 Midnights Practitioner: I am a practitioner with admitting privileges, knowledge of patient current condition, hospital course, and medical plan of care. Services: Services provided to patient in accordance with Admission requirements found in Title 42 Section 412.3 of the Code of Federal Regulations Patient History Date of Service: 01/29/23 Reason for admission: CHILLS, WEAKNESS, LOW BP History of Present Illness: ZURI HAS HAD STENTS AND ATHERECTOMY FOR LEGS FOR PVD FROM HEAVY SMOKING. DR.AYA Sal IS WORKING ON THIS. IN LAST ADMISSION WE THOUGHT HEHAD REACTION TO SEDATIVES AND NARCOTICS DURING PROCEDURE. THIS ADMISSION DR. FOLRES DID NOT GIVE ANY MEDS BUT STILL IN TWO HOURS HE STARTED HAVING CHILLS, FATIGUE AND BP DROPPED. THERE ARE NO OTHER ASSOCIATED SYMPTOMS. Allergies niacin [From Niaspan Extended-Release] Allergy (Mild, Verified 08/30/22 08:09) "Flushing" paroxetine HCl [From Paxil] Allergy (Mild, Verified 08/30/22 08:09) "Agitation" atorvastatin calcium [From Lipitor] Adverse Reaction (Intermediate, Verified 08/30/22 08:09) Muscle weakness paper tape Adverse Reaction (Uncoded 08/30/22 08:09) Rash/Pulls skin off Home Medications: Clopidogrel Bisulfate [Plavix*] 75 mg PO NOON 06/30/12 Tamsulosin [Flomax*] 0.4 mg PO BID 06/30/12 allopurinoL [Allopurinol] 300 mg PO NOON 11/30/13 Rosuvastatin [Crestor*] 20 mg PO NOON 11/03/17 Duloxetine [Cymbalta *] 60 mg PO DAILY 07/23/18 Fluticasone/Umeclidin/Vilanter [Trelegy Ellipta 100-62.5-25] 1 each IH DAILY 07/23/18 Albuterol Neb [Proventil 0.083% Neb Soln] 1 unit IH TID 06/25/21 Arformoterol Tartrate [Brovana] 1 unit IH TID 06/25/21 Dutasteride [Avodart*] 1 tab PO NOON 06/25/21 Pregabalin [Lyrica] 150 mg PO BID 11/07/21 Magnesium Oxide [Magnesium] 400 mg PO DAILY 05/19/22 Metoprolol Succinate [Toprol Xl*] 25 mg PO BID 05/19/22 Pantoprazole [Protonix Tab*] 40 mg PO DAILY tab 05/24/22 [place]-3/Dha/Epa/Fish Oil [Fish Oil 500 mg Softgel] 1 each PO BID 08/30/22 Vitamin D [Drisdol*] 50,000 unit PO SEECOM 08/30/22 Calcium Acetate 667 mg PO AC 01/11/23 Amox/Clavulanate [Augmentin 500-125 mg Tab] 500 mg PO BID #10 tab 01/13/23 Enoxaparin Sodium [Lovenox 30 MG INJ*] 30 mg SQ DAILY syr 01/13/23 Methylprednisolone [Medrol dosepack] 4 mg PO DIRECTED #1 armando 01/13/23 - Past Medical/Surgical History Has patient received pneumonia vaccine in the past: Yes Diabetic: No -: HTN -: Gout -: Ley's Cyst -: Prostate CA -: Kidney dx stage 5 -: COPD -: PVD,LEGS -: CAD,STENTS. -: HEAVY CURRENT SMOKER. -: Cardiac cath x2 w/stent placement -: R illiac & coronary stents -: stents BLE - Social History Smoking Status: Unknown if ever smoked Alcohol use: No CD- Drugs: No Caffeine use: No Place of Residence: Home Review of Systems 10-point ROS is otherwise unremarkable General: Weakness, Malaise Physical Examination - Vital Signs Temperature: 96.5 F Blood Pressure: 122/51 Pulse: 61 Respirations: 20 Pulse Ox (%): 98 - Physical Exam General: Oriented x2, Acute distress, Mild distress, Obese HEENT: Atraumatic, PERRLA, Mucous membr. moist/pink, EOMI, Sclerae nonicteric Neck: Supple, 2+ carotid pulse no bruit, No LAD, Without JVD or thyroid abnormality Respiratory: Clear to auscultation bilaterally, Normal air movement Cardiovascular: Regular rate/rhythm, Normal S1 S2 Gastrointestinal: Normal bowel sounds, No tenderness Musculoskeletal: No tenderness Integumentary: No rashes Neurological: Normal gait, Normal speech, Normal strength at 5/5 x4 extr, Normal tone, Normal affect Lymphatics: No axilla or inguinal lymphadenopathy - Studies Laboratory Data (last 24 hrs) 01/28/23 01/28/23 01/28/23 19:30 19:30 19:30 WBC 11.00 H Hgb 9.1 L Hct 27.3 L Plt Count 133 L PT 11.8 INR 1.07 APTT 38.9 H Sodium 137 Potassium 4.6 BUN 65 H Creatinine 8.84 H Glucose 142 H Total Bilirubin 0.4 AST 10 L ALT 13 L Alkaline Phosphatase 74 Microbiology Data (last 24 hrs): 01/28/23 19:37 Nasopharnyx Influenza Type A Antigen Screen - Final 01/28/23 19:37 Nasopharnyx Influenza Type B Antigen Screen - Final Assessment and Plan - Problems (Diagnosis) (1) Sepsis due to undetermined organism Current Visit: Yes Status: Acute Plan: IV ABX VANCO AND ZOSYN. NOREPINEPHRINE DRIP ICU ADMISSION BC2 PENDING UCS PENDING NO SIGNS OF ABDOMEN OR CHEST INFECTIONS PD FLUID CHECKED LAST ADMISSION CLEAR. (2) CAD (coronary artery disease) Onset Date: 11/04/17 Current Visit: No Status: Chronic Plan: CONT MEDS PROGNOSIS OVERALL GUARDED (3) CKD, patient preferred treatment modality peritoneal dialysis Current Visit: No Status: Chronic (4) COPD (chronic obstructive pulmonary disease) Onset Date: 11/04/17 Current Visit: No Status: Chronic - Advance Directives Does patient have a Living Will: No Does patient have a Durable POA for Healthcare: No
[2023-01-29] MEDS: ALBUTEROL 2.5 MG/3 ML NEB SOL IH SCH ×2 (13:55→20:00)
--- NOTE | 2023-01-29 17:30 | P.CNS ---
Date of Consult: 01/29/23 Reason for Consult: ESRD on PD Requesting Physician: Julio Stratton V Chief Complaint: CHILLS, WEAKNESS, LOW BP History of Present Illness: ZURI HAS HAD STENTS AND ATHERECTOMY FOR LEGS FOR PVD FROM HEAVY SMOKING. IS WORKING ON THIS. IN LAST ADMISSION WE THOUGHT HE HAD a REACTION TO SEDATIVES AND NARCOTICS DURING PROCEDURE. THIS ADMISSION DR. FLORES DID NOT GIVE ANY MEDS BUT 2 hours after the procedure the patient STILL developed CHILLS, FATIGUE AND BP DROPPED. THERE ARE NO OTHER ASSOCIATED SYMPTOMS. [id number] 21:30 This 77 yrs old Male presents to ER via Wheelchair with complaints of Fever, Allergic kb Reaction, Shakes. 21:30 Patient is a 77-year-old male who presents for fever, chills, shaking, shortness of kb breath that started shortly after he had a procedure for an arterial occlusion today. States symptoms were sudden in onset on the way home from procedure. States he had similar symptoms after he had the same procedure done on the left side at the beginning of the month. He was seen in examined in the ER. He is feeling better. Currently on a Levophed gtt. Allergies niacin [From Niaspan Extended-Release] Allergy (Mild, Verified 08/30/22 08:09) "Flushing" paroxetine HCl [From Paxil] Allergy (Mild, Verified 08/30/22 08:09) "Agitation" atorvastatin calcium [From Lipitor] Adverse Reaction (Intermediate, Verified 08/30/22 08:09) Muscle weakness paper tape Adverse Reaction (Uncoded 08/30/22 08:09) Rash/Pulls skin off Home medications list reviewed: Yes Home Medications: Clopidogrel Bisulfate [Plavix*] 75 mg PO NOON 06/30/12 Tamsulosin [Flomax*] 0.4 mg PO BID 06/30/12 allopurinoL [Allopurinol] 300 mg PO NOON 11/30/13 Rosuvastatin [Crestor*] 20 mg PO NOON 11/03/17 Duloxetine [Cymbalta *] 60 mg PO DAILY 07/23/18 Fluticasone/Umeclidin/Vilanter [Trelegy Ellipta 100-62.5-25] 1 each IH DAILY 07/23/18 Albuterol Neb [Proventil 0.083% Neb Soln] 1 unit IH TID 06/25/21 Arformoterol Tartrate [Brovana] 1 unit IH TID 06/25/21 Pregabalin [Lyrica] 150 mg PO BID 11/07/21 Magnesium Oxide [Magnesium] 400 mg PO DAILY 05/19/22 Pantoprazole [Protonix Tab*] 40 mg PO DAILY tab 05/24/22 [place]-3/Dha/Epa/Fish Oil [Fish Oil 500 mg Softgel] 1 each PO BID 08/30/22 Vitamin D [Drisdol*] 50,000 unit PO SEECOM 08/30/22 Calcium Acetate 667 mg PO AC 01/11/23 Enoxaparin Sodium [Lovenox 30 MG INJ*] 30 mg SQ DAILY syr 01/13/23 Methylprednisolone [Medrol dosepack] 4 mg PO DIRECTED #1 armando 01/13/23 Amlodipine [Norvasc*] 5 mg PO DAILY 01/29/23 Dutasteride [Avodart] 0.5 mg PO DAILY 01/29/23 Furosemide 40 mg PO BID 01/29/23 - Past Medical/Surgical History Diabetic: No -: HTN -: Gout -: Ley's Cyst -: Prostate CA -: ESRD (Dr. Yepez/ Dr. Thompson) -: COPD -: PAD -: CAD/ STENTS. -: HEAVY CURRENT SMOKER. -: Cardiac cath x2 w/stent placement -: R illiac & coronary stents -: stents BLE - Social History Smoking Status: Current every day smoker Alcohol use: No CD- Drugs: No Caffeine use: No Place of Residence: Home Review of Systems 10-point ROS is otherwise unremarkable General: Fever, Weakness, Malaise Physical Examination Temp Pulse Resp BP Pulse Ox 97.0 F 75 18 104/47 L 95 01/29/23 16:00 01/29/23 16:00 01/29/23 16:00 01/29/23 16:00 01/29/23 16:00 General: In no apparent distress, Oriented x3, Cooperative, Cachectic Neck: Supple Respiratory: Clear to auscultation bilaterally Cardiovascular: Regular rate/rhythm, Edema Gastrointestinal: Soft and benign, Non-distended Musculoskeletal: No clubbing, No contractures Integumentary: No rashes, No cyanosis Laboratory Data (last 24 hrs) 01/28/23 01/28/23 01/28/23 19:30 19:30 19:30 WBC 11.00 H Hgb 9.1 L Hct 27.3 L Plt Count 133 L PT 11.8 INR 1.07 APTT 38.9 H Sodium 137 Potassium 4.6 BUN 65 H Creatinine 8.84 H Glucose 142 H Total Bilirubin 0.4 AST 10 L ALT 13 L Alkaline Phosphatase 74 Imagings Data: [id number] EXAM DESCRIPTION: RAD - Chest Single View - 01/28/2023 10:54 pm CLINICAL HISTORY: 77 years Male, Central line R IJ placement TECHNIQUE: 1 view (Single frontal view of the chest) COMPARISON: Chest x-ray performed earlier same day was not made available for comparison at time of this interpretation. FINDINGS: LINES AND TUBES: Right internal jugular central venous catheter with the tip within the mid SVC. Thoracic canal spinal electrode leads. CARDIOVASCULAR STRUCTURES: Normal heart size. LUNGS: Coarse interstitial opacities. No confluent areas of acute consolidation. PLEURA: No layering pleural effusions. No pneumothorax. BONES: No acute osseous abnormality of the thorax. IMPRESSION: 1. Placement of right internal jugular central venous catheter with satisfactory positioning and no pneumothorax. 2. Coarse interstitial opacities compatible with chronic change plus or minus superimposed edema or infection. [id number] EXAM DESCRIPTION: RADChest Single View01/28/2023 7:24 pm CLINICAL HISTORY: fever COMPARISON: January 11, 2023 FINDINGS: The lungs appear clear of acute infiltrate. The heart is borderline enlarged IMPRESSION: No acute abnormalities displayed Conclusions/Impression: ESRD on HD -Continue PD as ordered HTN with CKD/ CHF complicated by hypotension -Levophed prn Diastolic CHF, chronic -Daily weight -Low sodium diet -PD with UF DM II with CKD -RISS prn Hypoalbuminemia -Start Nepro Anemia in CKD Thrombocytopenia -Monitor CBC -Retacrit TIW CKD MBD -Start Ergo Sepsis -Continue abx -Follow up cultures -Levophed prn to maintain perfusion Cigarette Smoking -Recommend cessation Case reviewed with Dr. Stratton Hospitalist and ER notes reviewed Thank you kindly for the consultation Critical Care: Yes (>30min patient care)
[2023-01-29] MEDS: ARFORMOTEROL TARTRATE 15 MCG/2 ML VIAL.NEB IH SCH (20:00)
[2023-01-29] MEDS: EPOETIN ALFA 10,000 UNIT/ML VIAL SQ SCH (20:00)
[2023-01-29] MEDS: DOCUSATE NA 100 MG CAP PO SCH (22:00)
[2023-01-30 05:26] LABS: Absolute Lymphocytes (CBC) 0.7 K/uL (0.7-4.9); Hematocrit 26.5 % (39.6-49.0); Lymphocytes % 9.3 % (15.3-44.8); MCV 99.9 fL (80-100); MPV 9.7 fL (7.6-11.3); Platelets 126 thou/uL (152-406); RBC Red Blood Cell Count 2.65 M/uL (4.33-5.43)
[2023-01-30 05:37] LABS: ALT/SGPT < 10 U/L (16-61); AST/SGOT 8 U/L (15-37); Alkaline Phosphatase 54 U/L (45-117); BUN Blood Urea Nitrogen 60 mg/dL (7-18); Bicarbonate 26 mEq/L (21-32); Bilirubin Total 0.4 mg/dL (0.2-1.0); Glomerular Filtration Rate 6 ml/min (=/>90); Glucose Level 134 mg/dL (74-106); Magnesium 2.7 mg/dL (1.6-2.4); Phosphorus 6.2 mg/dL (2.5-4.9); Potassium 4.3 mEq/L (3.5-5.1); Protein, Total 5.8 g/dL (6.4-8.2); Sodium Level 141 mEq/L (136-145)
[2023-01-30] MEDS: ARFORMOTEROL TARTRATE 15 MCG/2 ML VIAL.NEB IH SCH ×2 (08:00→19:45)
[2023-01-30] MEDS: ALBUTEROL 2.5 MG/3 ML NEB SOL IH SCH ×3 (08:00→19:45)
[2023-01-30] MEDS: DULOXETINE 30 MG CAP PO SCH (08:42)
[2023-01-30] MEDS: DOCUSATE NA 100 MG CAP PO SCH ×2 (08:42→21:41)
[2023-01-30] MEDS: PIPER TAZO 3.375 GM in NA CHLORIDE 0.9% 100 ML IV SCH ×2 (08:42→21:41)
[2023-01-30] MEDS: NEPRO SHAKE 237 ML CAN PO SCH ×3 (09:00→21:42)
[2023-01-30] MEDS ORDERED: DRISDOL (VITAMIN D=ERGOCALCIFEROL) 50000 UNIT CAP PO SCH (09:00)
[2023-01-30] MEDS ORDERED: allopurinoL 300 MG TAB PO SCH (12:00)
[2023-01-30] MEDS: CLOPIDOGREL 75 MG TABLET PO SCH (12:13)
[2023-01-30] MEDS: allopurinoL 300 MG TAB PO SCH (12:48)
[2023-01-30] MEDS: CALCIUM ACETATE 667 MG TAB PO SCH ×2 (12:48→16:58)
--- NOTE | 2023-01-30 14:01 | RAD REPORT ---
EXAM DESCRIPTION: US - UPPER EXTREMITY VENOUS UNILATE - 01/30/2023 1:49 pm CLINICAL HISTORY: RUE edema Arm swelling and edema COMPARISON: No comparisons FINDINGS: Right upper extremity venous system was interrogated with Doppler technique. Normal flow, compressibility and augmentation was noted. There is no DVT present. IMPRESSION: No evidence of right upper extremity deep venous thrombosis.
--- NOTE | 2023-01-30 14:03 | RAD REPORT ---
EXAM DESCRIPTION: US - Lower Extremity Artery Uni Ltd - 01/30/2023 1:48 pm CLINICAL HISTORY: Persistent RLE pain in the calf. Right leg pain and claudication COMPARISON: Lower Extremity Arterial Bilat dated 12/13/2022 FINDINGS: Sonographic interrogation of the right lower extremity arterial system noted. Biphasic dashawn w is seen distal to the recently placed right SFA stent. Right SFA stent appears patent. Monophasic waveforms are seen involving the distal right SFA, popliteal, posterior tibial and dorsali s pedis arteries. There is significant blunting and widening of the right posterior tibial and dorsal is pedis. No complete occlusion. IMPRESSION: Moderate peripheral vascular disease is seen below the level of the right superficial fe moral artery stent. No complete occlusion evident.
[2023-01-30] MEDS: EPOETIN ALFA 10,000 UNIT/ML VIAL SQ SCH (16:58)
[2023-01-30 17:27] LABS: Specific Gravity 1.016 (1.005-1.030); Urine Bacteria <20 /HPF (<20); Urine Bilirubin NEGATIVE (Negative); Urine Blood Negative (Negative); Urine Clarity Turbid (Clear); Urine Color Light-Yellow (Yellow); Urine Glucose NEGATIVE (Negative); Urine Protein 2+ (Negative); Urine RBC <5 /HPF (None Seen); Urine Urobilinogen Normal (Normal); Urine pH 6.5 (5.0-7.0)
--- NOTE | 2023-01-30 20:54 | P.PN ---
Date of Service: 01/30/23 Vital Signs Temp Pulse Resp BP Pulse Ox 98.1 F 93 H 18 130/77 90 L 01/30/23 17:52 01/30/23 17:52 01/30/23 17:52 01/30/23 17:52 01/30/23 17:52 Medications Acetaminophen (Acetaminophen 500 Mg Tab) 1,000 mg PO Q6H PRN PRN Reason: TEMP > 100' F Albuterol Sulfate (Albuterol 2.5 Mg/3 Ml Neb Jessica) 2.5 mg IH TIDRESP [facility] Last Admin: 01/30/23 19:45 Dose: 2.5 mg Allopurinol (Allopurinol 300 Mg Tab) 300 mg PO NOON [facility] Last Admin: 01/30/23 12:48 Dose: 300 mg Arformoterol Tartrate (Arformoterol Tartrate 15 Mcg/2 Ml Vial.Neb) 15 mcg IH BIDRESP [facility] Last Admin: 01/30/23 19:45 Dose: 15 mcg Calcium Acetate (Calcium Acetate 667 Mg Tab) 667 mg PO BIDWM [facility] Last Admin: 01/30/23 16:58 Dose: 667 mg Clopidogrel Bisulfate (Clopidogrel 75 Mg Tablet) 75 mg PO NOON [facility] Last Admin: 01/30/23 12:13 Dose: 75 mg Docusate Sodium (Docusate Na 100 Mg Cap) 100 mg PO BID [facility] Last Admin: 01/30/23 08:42 Dose: 100 mg Duloxetine HCl (Duloxetine 30 Mg Cap) 60 mg PO DAILY [facility] Last Admin: 01/30/23 08:42 Dose: 60 mg Enteral Nutritional Formula (Nepro Shake 237 Ml Can) 237 ml PO TID [facility] Last Admin: 01/30/23 14:00 Dose: 237 ml Epoetin Heriberto (Epoetin Heriberto 10,000 Unit/Ml Vial) 10,000 unit SQ M,W,F [facility] Last Admin: 01/30/23 16:58 Dose: 10,000 unit Ergocalciferol (Drisdol (Vitamin D=Ergocalciferol) 72341 Unit Cap) 50,000 unit PO Q48H [facility] Stop: 02/01/23 09:01 Last Admin: 01/30/23 08:41 Dose: 50,000 unit Piperacillin Sod/Tazobactam (Sod 3.375 gm/ Sodium Chloride) 100 mls @ 25 mls/hr IV Q12HR [facility]; Protocol Last Admin: 01/30/23 08:42 Dose: 100 mls Vancomycin HCl 1 gm/ Sodium (Chloride) 250 mls @ 250 mls/hr IVPB Q48H [facility] Microbiology Results 01/28/23 19:45 Blood - Blood Aerobic Blood Culture - Preliminary No growth in 24 hours. 01/28/23 19:45 Blood - Blood Anaerobic Blood Culture - Preliminary No growth in 24 hours. 01/28/23 19:30 Blood - Blood Aerobic Blood Culture - Preliminary No growth in 24 hours. 01/28/23 19:30 Blood - Blood Anaerobic Blood Culture - Preliminary No growth in 24 hours. 01/28/23 19:37 Nasopharnyx Influenza Type A Antigen Screen - Final 01/28/23 19:37 Nasopharnyx Influenza Type B Antigen Screen - Final Assessment/ Plan: Nephrology No dyspnea No chest pain RLE pain RUE swelling Weakness and fatigue No acute events overnight Vitals, medications, blood work and imaging reviewed in the chart. General: In no apparent distress, Oriented x3, Cooperative, Cachectic Neck: Supple Respiratory: Clear to auscultation bilaterally Cardiovascular: Regular rate/rhythm, Edema Gastrointestinal: Soft and benign, Non-distended Musculoskeletal: No clubbing, No contractures Integumentary: No rashes, No cyanosis Laboratory Data (last 24 hrs) 01/28/23 01/28/23 01/28/23 19:30 19:30 19:30 WBC 11.00 H Hgb 9.1 L Hct 27.3 L Plt Count 133 L PT 11.8 INR 1.07 APTT 38.9 H Sodium 137 Potassium 4.6 BUN 65 H Creatinine 8.84 H Glucose 142 H Total Bilirubin 0.4 AST 10 L ALT 13 L Alkaline Phosphatase 74 Imagings Data: [id number] EXAM DESCRIPTION: RAD - Chest Single View - 01/28/2023 10:54 pm CLINICAL HISTORY: 77 years Male, Central line R IJ placement TECHNIQUE: 1 view (Single frontal view of the chest) COMPARISON: Chest x-ray performed earlier same day was not made available for comparison at time of this interpretation. FINDINGS: LINES AND TUBES: Right internal jugular central venous catheter with the tip within the mid SVC. Thoracic canal spinal electrode leads. CARDIOVASCULAR STRUCTURES: Normal heart size. LUNGS: Coarse interstitial opacities. No confluent areas of acute consolidation. PLEURA: No layering pleural effusions. No pneumothorax. BONES: No acute osseous abnormality of the thorax. IMPRESSION: 1. Placement of right internal jugular central venous catheter with satisfactory positioning and no pneumothorax. 2. Coarse interstitial opacities compatible with chronic change plus or minus superimposed edema or infection. [id number] EXAM DESCRIPTION: RADChest Single View01/28/2023 7:24 pm CLINICAL HISTORY: fever COMPARISON: January 11, 2023 FINDINGS: The lungs appear clear of acute infiltrate. The heart is borderline enlarged IMPRESSION: No acute abnormalities displayed Conclusions/Impression: ESRD on PD Proteinuria -Continue PD as ordered HTN with CKD/ CHF complicated by hypotension -Levophed prn Diastolic CHF, chronic -Daily weight -Low sodium diet -PD with UF DM II with CKD & Polyneuropathy -RISS prn Hypoalbuminemia -Continue Nepro Anemia in CKD Thrombocytopenia -Monitor CBC -Retacrit TIW CKD MBD -Continue Ergo Sepsis? -Continue abx -Follow up cultures -Levophed prn Cigarette Smoking -Recommend cessation -Nicotine TD prn Case reviewed with Dr. Stratton & Dr. Villeda [address] EXAM DESCRIPTION: US - Lower Extremity Artery Uni Ltd - 01/30/2023 1:48 pm CLINICAL HISTORY: Persistent RLE pain in the calf. Right leg pain and claudication COMPARISON: Lower Extremity Arterial Bilat dated 12/13/2022 FINDINGS: Sonographic interrogation of the right lower extremity arterial system noted. Biphasic flow is seen distal to the recently placed right SFA stent. Right SFA stent appears patent. Monophasic waveforms are seen involving the distal right SFA, popliteal, posterior tibial and dorsalis pedis arteries. There is significant blunting and widening of the right posterior tibial and dorsalis pedis. No complete occlusion. IMPRESSION: Moderate peripheral vascular disease [id number] EXAM DESCRIPTION: US - UPPER EXTREMITY VENOUS UNILATE - 01/30/2023 1:49 pm CLINICAL HISTORY: RUE edema Arm swelling and edema COMPARISON: No comparisons FINDINGS: Right upper extremity venous system was interrogated with Doppler technique. Normal flow, compressibility and augmentation was noted. There is no DVT present. IMPRESSION: No evidence of right upper extremity deep venous thrombosis.
[2023-01-30] MEDS ORDERED: VANCOMYCIN 1 GM in NA CHLORIDE 0.9% 250 ML IVPB SCH (21:00)
--- NOTE | 2023-01-30 21:13 | P.PN ---
Subjective Date of Service: 01/30/23 Chief Complaint: CHILLS, WEAKNESS, LOW BP Subjective: Improving HE IS BETTER BUT SINCE PROCEDURE ON R LEG, HIS R LEG HAS REMAINED WEAK. HE WILL GET PT. Review of Systems 10-point ROS is otherwise unremarkable General: Weakness Physical Examination - Vital Signs Temperature: 98.1 F Blood Pressure: 130/77 Pulse: 93 Respirations: 18 Pulse Ox (%): 90 - Physical Exam General: Oriented x3, Mild distress, Obese HEENT: Atraumatic, PERRLA, EOMI Neck: Supple, JVD not distended Respiratory: Diminished (FROM HEAVY SMOKING.) Cardiovascular: Regular rate/rhythm, Normal S1 S2 Gastrointestinal: Normal bowel sounds, No tenderness Musculoskeletal: No tenderness Integumentary: No rashes Neurological: Normal speech, Normal tone, Normal affect Lymphatics: No axilla or inguinal lymphadenopathy - Studies Medications List Reviewed: Yes Assessment And Plan - Current Problems (Diagnosis) (1) Sepsis due to undetermined organism Current Visit: Yes Status: Acute Plan: IV ABX VANCO AND ZOSYN. NOREPINEPHRINE DRIP ICU ADMISSION BC2 PENDING UCS PENDING NO SIGNS OF ABDOMEN OR CHEST INFECTIONS PD FLUID CHECKED LAST ADMISSION CLEAR. ALL [facility] NEG SO FAR. CLINICAL SYMPTOMS WERE OF SEPSIS WHEN HE CAME HERE. (2) CAD (coronary artery disease) Onset Date: 11/04/17 Current Visit: No Status: Chronic Plan: CONT MEDS PROGNOSIS OVERALL GUARDED (3) CKD, patient preferred treatment modality peritoneal dialysis Current Visit: No Status: Chronic (4) COPD (chronic obstructive pulmonary disease) Onset Date: 11/04/17 Current Visit: No Status: Chronic Plan: START IV STEROIDS HAS HE IS GETTING MORE HYPOXIC. Qualifiers: COPD type: COPD with acute exacerbation Qualified Code(s): J44.1 - Chronic obstructive pulmonary disease with (acute) exacerbation
[2023-01-31] MEDS: METHYLPREDNISOLONE 40 MG INJ IV SCH ×4 (00:11→18:00)
[2023-01-31 04:52] LABS: Absolute Lymphocytes (CBC) 0.3 K/uL (0.7-4.9); Hematocrit 25.6 % (39.6-49.0); Lymphocytes % 3.6 % (15.3-44.8); MCV 99.4 fL (80-100); Platelets 144 thou/uL (152-406); RBC Red Blood Cell Count 2.58 M/uL (4.33-5.43)
[2023-01-31 05:32] LABS: AST/SGOT 8 U/L (15-37); Alkaline Phosphatase 56 U/L (45-117); BUN Blood Urea Nitrogen 66 mg/dL (7-18); Bicarbonate 24 mEq/L (21-32); Bilirubin Total 0.4 mg/dL (0.2-1.0); Glomerular Filtration Rate 6 ml/min (=/>90); Glucose Level 213 mg/dL (74-106); Potassium 4.8 mEq/L (3.5-5.1); Protein, Total 6.2 g/dL (6.4-8.2); Sodium Level 140 mEq/L (136-145); Uric Acid 3.9 mg/dL (3.5-7.2)
[2023-01-31 05:41] LABS: ALT/SGPT < 6 U/L (16-61)
[2023-01-31] MEDS: ALBUTEROL 2.5 MG/3 ML NEB SOL IH SCH ×2 (07:10→13:15)
[2023-01-31] MEDS: ARFORMOTEROL TARTRATE 15 MCG/2 ML VIAL.NEB IH SCH (07:20)
[2023-01-31] MEDS: CALCIUM ACETATE 667 MG TAB PO SCH ×6 (08:00→17:00)
[2023-01-31] MEDS ORDERED: VANCOMYCIN 1 GM in NA CHLORIDE 0.9% 250 ML IVPB SCH (09:00)
[2023-01-31] MEDS ORDERED: ENOXAPARIN 30 MG/0.3 ML SQ SCH (09:00)
[2023-01-31] MEDS ORDERED: PREGABALIN 150 MG CAP PO SCH (09:00)
[2023-01-31] MEDS ORDERED: DUTASTERIDE 0.5 MG GEL CAP PO SCH (09:00)
[2023-01-31] MEDS ORDERED: TAMSULOSIN 0.4 MG SR CAP PO SCH (09:00)
[2023-01-31] MEDS ORDERED: Fluticasone/Umeclidin/Vilanter [Trelegy Ellipta] 100-62.5-25 IH SCH (09:00)
[2023-01-31] MEDS: NEPRO SHAKE 237 ML CAN PO SCH ×2 (09:00→14:00)
[2023-01-31] MEDS ORDERED: PANTOPRAZOLE 40MG TABLET PO SCH (09:00)
[2023-01-31] MEDS ORDERED: MAGNESIUM OXIDE 400 MG TAB PO SCH (09:00)
--- NOTE | 2023-01-31 10:42 | P.PN ---
Date of Service: 01/31/23 Vital Signs Temp Pulse Resp BP Pulse Ox 97.3 F 80 18 143/85 H 94 01/31/23 08:00 01/31/23 08:00 01/31/23 08:00 01/31/23 08:00 01/31/23 08:00 Medications Acetaminophen (Acetaminophen 500 Mg Tab) 1,000 mg PO Q6H PRN PRN Reason: TEMP > 100' F Albuterol Sulfate (Albuterol 2.5 Mg/3 Ml Neb Jessica) 2.5 mg IH TIDRESP [facility] Last Admin: 01/31/23 07:10 Dose: 2.5 mg Allopurinol (Allopurinol 300 Mg Tab) 300 mg PO NOON [facility] Last Admin: 01/30/23 12:48 Dose: 300 mg Arformoterol Tartrate (Arformoterol Tartrate 15 Mcg/2 Ml Vial.Neb) 15 mcg IH BIDRESP [facility] Last Admin: 01/31/23 07:20 Dose: 15 mcg Calcium Acetate (Calcium Acetate 667 Mg Tab) 667 mg PO BIDWM [facility] Last Admin: 01/30/23 16:58 Dose: 667 mg Calcium Acetate (Calcium Acetate 667 Mg Tab) 667 mg PO AC [facility] Clopidogrel Bisulfate (Clopidogrel 75 Mg Tablet) 75 mg PO NOON [facility] Last Admin: 01/30/23 12:13 Dose: 75 mg Docusate Sodium (Docusate Na 100 Mg Cap) 100 mg PO BID [facility] Last Admin: 01/30/23 21:41 Dose: 100 mg Duloxetine HCl (Duloxetine 30 Mg Cap) 60 mg PO DAILY [facility] Last Admin: 01/30/23 08:42 Dose: 60 mg Dutasteride (Dutasteride 0.5 Mg Gel Cap) 0.5 mg PO DAILY [facility] Enoxaparin Sodium (Enoxaparin 30 Mg/0.3 Ml) 30 mg SQ DAILY [facility] Enteral Nutritional Formula (Nepro Shake 237 Ml Can) 237 ml PO TID [facility] Last Admin: 01/30/23 21:42 Dose: 237 ml Epoetin Heriberto (Epoetin Heriberto 10,000 Unit/Ml Vial) 10,000 unit SQ M,W,F [facility] Last Admin: 01/30/23 16:58 Dose: 10,000 unit Ergocalciferol (Drisdol (Vitamin D=Ergocalciferol) 40038 Unit Cap) 50,000 unit PO Fr@0900 [facility] Home Med (Fluticasone/Umeclidin/Vilanter [Trelegy Ellipta 100-62.5-25]) 1 each IH DAILY [facility] Piperacillin Sod/Tazobactam (Sod 3.375 gm/ Sodium Chloride) 100 mls @ 25 mls/hr IV Q12HR [facility]; Protocol Last Admin: 01/30/23 21:41 Dose: 100 mls Vancomycin HCl 1 gm/ Sodium (Chloride) 250 mls @ 250 mls/hr IVPB Q48H [facility] Magnesium Oxide (Magnesium Oxide 400 Mg Tab) 400 mg PO DAILY [facility] Methylprednisolone Sodium Succinate (Methylprednisolone 40 Mg Inj) 40 mg IV Q6HR [facility] Last Admin: 01/31/23 05:23 Dose: 40 mg Pantoprazole Sodium (Pantoprazole 40mg Tablet) 40 mg PO DAILY [facility]; Protocol Pregabalin (Pregabalin 150 Mg Cap) 150 mg PO BID [facility] Rosuvastatin Calcium (Rosuvastatin 10 Mg Tab) 20 mg PO NOON [facility] Tamsulosin HCl (Tamsulosin 0.4 Mg Sr Cap) 0.4 mg PO BID [facility] Microbiology Results 01/28/23 19:45 Blood - Blood Aerobic Blood Culture - Preliminary No growth in 24 hours. 01/28/23 19:45 Blood - Blood Anaerobic Blood Culture - Preliminary No growth in 24 hours. 01/28/23 19:30 Blood - Blood Aerobic Blood Culture - Preliminary No growth in 24 hours. 01/28/23 19:30 Blood - Blood Anaerobic Blood Culture - Preliminary No growth in 24 hours. 01/28/23 19:37 Nasopharnyx Influenza Type A Antigen Screen - Final 01/28/23 19:37 Nasopharnyx Influenza Type B Antigen Screen - Final Assessment/ Plan: Nephrology No dyspnea No chest pain Feeling better today. Ambulating in the halls. No acute events overnight Vitals, medications, blood work and imaging reviewed in the chart. General: In no apparent distress, Oriented x3, Cooperative, Cachectic Neck: Supple Respiratory: Clear to auscultation bilaterally Cardiovascular: Regular rate/rhythm, Edema Gastrointestinal: Soft and benign, Non-distended Musculoskeletal: No clubbing, No contractures Integumentary: No rashes, No cyanosis Laboratory Data (last 24 hrs) 01/28/23 01/28/23 01/28/23 19:30 19:30 19:30 WBC 11.00 H Hgb 9.1 L Hct 27.3 L Plt Count 133 L PT 11.8 INR 1.07 APTT 38.9 H Sodium 137 Potassium 4.6 BUN 65 H Creatinine 8.84 H Glucose 142 H Total Bilirubin 0.4 AST 10 L ALT 13 L Alkaline Phosphatase 74 Imagings Data: [id number] EXAM DESCRIPTION: RAD - Chest Single View - 01/28/2023 10:54 pm CLINICAL HISTORY: 77 years Male, Central line R IJ placement TECHNIQUE: 1 view (Single frontal view of the chest) COMPARISON: Chest x-ray performed earlier same day was not made available for comparison at time of this interpretation. FINDINGS: LINES AND TUBES: Right internal jugular central venous catheter with the tip within the mid SVC. Thoracic canal spinal electrode leads. CARDIOVASCULAR STRUCTURES: Normal heart size. LUNGS: Coarse interstitial opacities. No confluent areas of acute consolidation. PLEURA: No layering pleural effusions. No pneumothorax. BONES: No acute osseous abnormality of the thorax. IMPRESSION: 1. Placement of right internal jugular central venous catheter with satisfactory positioning and no pneumothorax. 2. Coarse interstitial opacities compatible with chronic change plus or minus s uperimposed edema or infection. [id number] EXAM DESCRIPTION: RADChest Single View01/28/2023 7:24 pm CLINICAL HISTORY: fever COMPARISON: January 11, 2023 FINDINGS: The lungs appear clear of acute infiltrate. The heart is borderline enlarged IMPRESSION: No acute abnormalities displayed Conclusions/Impression: ESRD on PD Proteinuria -Continue PD as ordered HTN with CKD/ CHF complicated by hypotension -Levophed prn Diastolic CHF, chronic -Daily weight -Low sodium diet -PD with UF DM II with CKD & Polyneuropathy -RISS prn Hypoalbuminemia -Continue Nepro Anemia in CKD Thrombocytopenia -Monitor CBC -Retacrit TIW CKD MBD -Continue Ergo Sepsis? -Continue abx -Follow up cultures -Levophed prn Cigarette Smoking -Recommend cessation -Nicotine TD prn Case reviewed with Dr. Stratton & Dr. Villeda [id number] EXAM DESCRIPTION: US - Lower Extremity Artery Uni Ltd - 01/30/2023 1:48 pm CLINICAL HISTORY: Persistent RLE pain in the calf. Right leg pain and claudication COMPARISON: Lower Extremity Arterial Bilat dated 12/13/2022 FINDINGS: Sonographic interrogation of the right lower extremity arterial system noted. Biphasic flow is seen distal to the recently placed right SFA stent. Right SFA stent appears patent. Monophasic waveforms are seen involving the distal right SFA, popliteal, posterior tibial and dorsalis pedis arteries. There is significant blunting and widening of the right posterior tibial and dorsalis pedis. No complete occlusion. IMPRESSION: Moderate peripheral vascular disease [id number] EXAM DESCRIPTION: US - UPPER EXTREMITY VENOUS UNILATE - 01/30/2023 1:49 pm CLINICAL HISTORY: RUE edema Arm swelling and edema COMPARISON: No comparisons FINDINGS: Right upper extremity venous system was interrogated with Doppler technique. Normal flow, compressibility and augmentation was noted. There is no DVT present. IMPRESSION: No evidence of right upper extremity deep venous thrombosis.
[2023-01-31] MEDS: DOCUSATE NA 100 MG CAP PO SCH (11:12)
[2023-01-31] MEDS: allopurinoL 300 MG TAB PO SCH (11:12)
[2023-01-31] MEDS: DULOXETINE 30 MG CAP PO SCH (11:12)
[2023-01-31] MEDS: PIPER TAZO 3.375 GM in NA CHLORIDE 0.9% 100 ML IV SCH (11:14)
[2023-01-31] MEDS: CLOPIDOGREL 75 MG TABLET PO SCH (11:14)
[2023-01-31] MEDS ORDERED: ROSUVASTATIN 10 MG TAB PO SCH (12:00)
--- NOTE | 2023-01-31 12:51 | P.PN ---
Subjective Date of Service: 01/31/23 Chief Complaint: CHILLS, WEAKNESS, LOW BP Subjective: Improving HE IS BETTER BUT SINCE PROCEDURE ON R LEG, HIS R LEG HAS REMAINED WEAK. HE WILL GET PT. R LEG PAIN AND WEAKNESS. HE HAD PROCEDURE ON THIS LEG FOR PVD. HE IS BETTER TODAY AND IS ABLE TO MOVE THE LEG HE NEEDS TO WALK AND IF OKAY HE WILL GO HOME TODAY OR AM DEPENDING ON PT EVAL. Physical Examination - Vital Signs Temperature: 97.3 F Blood Pressure: 143/85 Pulse: 80 Respirations: 18 Pulse Ox (%): 94 - Physical Exam General: Oriented x3, Mild distress, Obese HEENT: Atraumatic, PERRLA, EOMI Neck: Supple, JVD not distended Respiratory: Clear to auscultation bilaterally, Normal air movement Cardiovascular: Regular rate/rhythm, Normal S1 S2 Gastrointestinal: Normal bowel sounds, No tenderness Musculoskeletal: No tenderness Integumentary: No rashes Neurological: Normal speech, Normal tone, Normal affect Lymphatics: No axilla or inguinal lymphadenopathy - Studies Medications List Reviewed: Yes Assessment And Plan - Current Problems (Diagnosis) (1) Sepsis due to undetermined organism Current Visit: Yes Status: Acute Plan: IV ABX VANCO AND ZOSYN. NOREPINEPHRINE DRIP ICU ADMISSION BC2 PENDING UCS PENDING NO SIGNS OF ABDOMEN OR CHEST INFECTIONS PD FLUID CHECKED LAST ADMISSION CLEAR. ALL [facility] NEG SO FAR. CLINICAL SYMPTOMS WERE OF SEPSIS WHEN HE CAME HERE. SO FAR ALL CULTURES ARE NEGATIVE. (2) CAD (coronary artery disease) Onset Date: 11/04/17 Current Visit: No Status: Chronic Plan: CONT MEDS PROGNOSIS OVERALL GUARDED (3) CKD, patient preferred treatment modality peritoneal dialysis Current Visit: No Status: Chronic (4) COPD (chronic obstructive pulmonary disease) Onset Date: 11/04/17 Current Visit: No Status: Chronic Plan: START IV STEROIDS HAS HE IS GETTING MORE HYPOXIC. Qualifiers: COPD type: COPD with acute exacerbation Qualified Code(s): J44.1 - Chronic obstructive pulmonary disease with (acute) exacerbation (5) Right leg weakness Current Visit: Yes Status: Acute Plan: THIS SEEMS TO BE MORE FROM PROCEDURE THAN STROKE IT IS IMPROVING ALREADY HE WILL GET PT TODAY.
[2023-01-31 14:35] VITALS: BMI 33.2
[2023-01-31 14:38] VITALS: O2SAT 94
[2023-01-31 20:19] VITALS: BP 145/65; TEMP 98.1
[2023-02-01] MEDS ORDERED: VANCOMYCIN 1 GM in NA CHLORIDE 0.9% 250 ML IVPB SCH (06:00)
[2023-02-01] MEDS ORDERED: DRISDOL (VITAMIN D=ERGOCALCIFEROL) 50000 UNIT CAP PO SCH (09:00)
== END 2023-01-31 20:20 | disposition home or self-care (01) | DRG 871 ==
LOC: ER 18:24 → ERHOLD 22:16 → 3RD-ICU 01-29 04:31 → 2ND 01-30 18:01
PROVIDERS: ADMIT Internal Medicine; ATTEND Internal Medicine
PROC: 05HY33Z Insertion of Infusion Device into Upper Vein, Percutaneous Approach (ICD-10-PCS; principal; 2023-01-28)
PROC: 02HV33Z Insertion of Infusion Device into Superior Vena Cava, Percutaneous Approach (ICD-10-PCS; 2023-01-28)
PROC: 3E043XZ Introduction of Vasopressor into Central Vein, Percutaneous Approach (ICD-10-PCS; 2023-01-28)
PROC: 5A09457 Assistance with Respiratory Ventilation, 24-96 Consecutive Hours, Continuous Positive Airway Pressure (ICD-10-PCS; 2023-01-28)
DX: A41.9 Sepsis, unspecified organism (principal); N18.6 End stage renal disease; R64 Cachexia; I50.32 Chronic diastolic (congestive) heart failure; I13.2 Hypertensive heart and chronic kidney disease with heart failure and with stage 5 chronic kidney disease, or end stage renal disease; J44.1 Chronic obstructive pulmonary disease with (acute) exacerbation; E11.22 Type 2 diabetes mellitus with diabetic chronic kidney disease; E11.51 Type 2 diabetes mellitus with diabetic peripheral angiopathy without gangrene; E11.42 Type 2 diabetes mellitus with diabetic polyneuropathy; D63.1 Anemia in chronic kidney disease; M10.9 Gout, unspecified; I73.9 Peripheral vascular disease, unspecified; E88.09 Other disorders of plasma-protein metabolism, not elsewhere classified; D69.6 Thrombocytopenia, unspecified; I25.10 Atherosclerotic heart disease of native coronary artery without angina pectoris; F17.200 Nicotine dependence, unspecified, uncomplicated; R09.02 Hypoxemia; Z99.2 Dependence on renal dialysis; Z88.8 Allergy status to other drugs, medicaments and biological substances; Z95.5 Presence of coronary angioplasty implant and graft; Z79.02 Long term (current) use of antithrombotics/antiplatelets; Z68.33 Body mass index [BMI] 33.0-33.9, adult; Z85.46 Personal history of malignant neoplasm of prostate; Z91.158 Patient's noncompliance with renal dialysis for other reason; Z91.048 Other nonmedicinal substance allergy status; Z79.899 Other long term (current) drug therapy; Z20.822 Contact with and (suspected) exposure to COVID-19
CPT/HCPCS: 36415; 71045; 80048; 80053; 80202; 81001; 82947; 83605; 83735; 84100; 84550; 85025; 85610; 85730; 87040; 87635; 87804; 93005; 93926; 93971; 94640; 97116; 97161; 97530; 99285; J1650; J2001; J2543; J2920; J7050; J7605; J7613